=== PATIENT | female | born 1960 | race Caucasian/White ===

== ENCOUNTER 2020-05-05 12:01 | Emergency (ER) | payer OTHER, SELFPAY ==
[2020-05-05 12:05] VITALS: BP 231/121; PULSE 95; RESP 18; TEMP 36.6; O2SAT 97; BMI 31.3
[2020-05-05] MEDS: Lidocaine HCl 1 % MPF 5 ML VIAL 10 ML SUBCUT (12:30)
--- NOTE | 2020-05-05 13:04 | ED_ITS ---
HPI - Skin/Abscess/Foreign Bdy General Chief complaint: Skin/Abscess/Foreign Body Stated complaint: fb in finger Time Seen by Provider: 05/05/20 12:16 Source: patient Mode of arrival: ambulatory Limitations: no limitations History of Present Illness HPI narrative: Wooden splinter on the left nail of the thumb for 2 days occurred at home. MD complaint: foreign body Onset (ago): day(s) Tetanus up to date: yes Location: L hand (Left thumb) Context: none Treatments prior to arrival: none Related Data Home Medications Medication Instructions Recorded Confirmed potassium chloride 10 mEq 10 meq PO DAILY 03/08/20 tablet,extended release(part/cryst) Previous Rx's Medication Instructions Recorded dulaglutide 0.75 mg/0.5 mL 0.75 mg SUBCUT QWEEK #2 ml 02/09/20 subcutaneous pen injector glimepiride 4 mg tablet 4 mg PO QAM #30 tab 03/22/20 acetaminophen 300 mg-codeine 30 mg 1 tab PO BID PRN 30 Days #30 tab 03/26/20 tablet losartan 100 mg tablet 100 mg PO DAILY #30 tab 04/12/20 potassium chloride 10 mEq 10 meq PO QID #120 tab 04/12/20 tablet,extended release(part/cryst) gabapentin 400 mg capsule 400 mg PO TID #90 cap 05/04/20 cephalexin [Keflex] 500 mg PO BID 7 Days #14 cap 05/05/20 doxycycline monohydrate 100 mg PO BID 7 Days #14 cap 05/05/20 Allergies Allergy/AdvReac Type Severity Reaction Status Date / Time ibuprofen [From Motrin] Allergy Mild STOMACH Verified 02/26/20 06:22 UPSET oxycodone [From Percocet] Allergy Mild ITCHING Verified 02/26/20 06:22 lactose [LACTOSE] Allergy Unknown ABD PAIN Unverified 01/01/20 15:49 metformin AdvReac Unknown nausea, Verified 02/26/20 06:22 somnolence Review of Systems Review of Systems: Constitutional: No Weight loss, No Fever, No Chills, No Night Sweats, No Fatigue, No Malaise ENT/Mouth: No Hearing loss, No Ear Pain, No Nasal Congestion, No Sinus Pain, No Hoarseness, No sore throat, No Rhinorrhea Eyes: Cardiovascular: No Chest Pain, No SOB Respiratory: No Cough, No Sputum, No Wheezing, No Smoke Exposure, No Dyspnea Gastrointestinal: Negative Genitourinary: Negative Musculoskeletal: No joint pain, No Myalgias, No Joint Swelling Skin: No Skin Lesions, No rash, as noted in HPI Neuro: No Headache Psych: No Social Issues Heme/Lymph: Negative Endocrine: Negative Yes all other systems are reviewed and are negative [facility] Past Medical History Medical History (Updated 05/05/20 @ 13:06 by Erwin Parsons NP) Depression Diabetes Fibromyalgia HTN (hypertension) Sciatic pain Surgical History (Updated 02/26/20 @ 06:24 by DEBI Turner) H/O bilateral breast reduction surgery History of appendectomy History of carpal tunnel release History of section History of hysterectomy History of laparoscopic cholecystectomy History of left salpingo-oophorectomy History of right oophorectomy Family History Family History (Updated 02/26/20 @ 06:25 by DEBI Turner) Father Suicide Epilepsy Mother Poor high blood pressure control Diabetes Hypertension Daughter Spina bifida Social History Social History Smoked in Last 30 Days: No Use of substances other than those prescribed or required for medical reasons: No Advance Directives: No Advance Directives Information Provided: No Physical Exam Vital Signs: Vital Signs: Last Vital Signs Temp 98 F 05/05/20 12:05 Pulse 95 05/05/20 12:05 Resp 18 05/05/20 12:05 BP 231/121 H 05/05/20 12:05 Pulse Ox 97 05/05/20 12:05 Body Mass Index 31.3 Reviewed Const: General: cooperative and healthy appearing HENMT: Head: Yes normal to inspection Ears: hearing grossly normal bilaterally Eyes: General: appearance normal, both eyes and all related structures Visual Galvan: normal visual galvan by confrontation Resp: Effort & Inspection: normal respiratory effort Auscultation: clear to auscultation bilaterally Cardio: Jugular venous distension: no JVD Rhythm: regular rhythm Heart sounds: S1 normal heart sound present and S2 normal heart sound present Skin: General skin exam: no rashes or lesions noted Extrem: General: Yes normal to inspection Hand/finger images: 1. Visible darkened area under the fingernail consistent with foreign body. Procedures Foreign Body Removal Site: left and hand (Left thumb) Description of foreign body: other (Wood) Sedation/Analgesia: other (Digital block with 5 mL of 1% lidocaine) Technique: removal with forceps Confirmed by:: direct visualization Complications: none Post-procedure exam: awake, alert Neurovascular: normal distal pulse, no signs of compartment syndrome, no change from pre-procedure (Neurovascular intact. Cap refill within normal limits. Full range of motion.) and other (Single 2 cm long wooden splinter removed with ease. No additional foreign body visible. Slight purulent discharge with manual expression after splinter removal. Neurovascular intact. Cap refill within normal limits. Full range of motion. Neurovascular intact. Cap refill within normal limits.) Discharge Plan Discharge Clinical Impression: Splinter Patient Disposition: Home, Self-Care Instructions: Soft Tissue Foreign Body (ED) Additional Instructions: You had a wooden splinter removed from the left thumb under the nail This site appears minimally infected there was slight amount of purulent discharge The splinter was removed fully intact Given your history of diabetes you will need to monitor the site closely for infection including redness, swelling, discharge or fever Return to emergency room right away for any concerns or worsening symptoms He will be started on antibiotics to prevent further infection Have check in 1 week through her primary care doctor Thank you Prescriptions: New cephalexin [Keflex] 500 mg capsule 500 mg PO BID 7 Days Qty: 14 RF: 0 doxycycline monohydrate 100 mg capsule 100 mg PO BID 7 Days Qty: 14 RF: 0 No Action dulaglutide [Trulicity] 0.75 mg/0.5 mL pen injector 0.75 mg subcut QWEEK Qty: 2 RF: 8 potassium chloride 10 mEq tablet,ER particles/crystals 10 meq PO DAILY RF: 0 glimepiride 4 mg tablet 4 mg PO QAM Qty: 30 RF: 2 acetaminophen-codeine 300-30 mg tablet 1 tab PO BID PRN (Reason: pain) 30 Days Qty: 30 RF: 0 losartan 100 mg tablet 100 mg PO DAILY Qty: 30 RF: 2 potassium chloride 10 mEq tablet,ER particles/crystals 10 meq PO QID Qty: 120 RF: 2 gabapentin 400 mg capsule 400 mg PO TID Qty: 90 RF: 0 Referrals: Michael Peoples MD [Primary Care Provider] - 1 week
[2020-05-05 13:20] VITALS: BP 192/98; PULSE 86
== END 2020-05-05 13:22 | disposition home or self-care (01) ==
PROVIDERS: Emergency Provider Emergency Medicine; PCP Internal Medicine
DX: L92.3 Foreign body granuloma of the skin and subcutaneous tissue (principal); M79.642 Pain in left hand; W45.8XXA Other foreign body or object entering through skin, initial encounter; Y93.9 Activity, unspecified; Y92.009 Unspecified place in unspecified non-institutional (private) residence as the place of occurrence of the external cause; Y99.9 Unspecified external cause status; Z79.899 Other long term (current) drug therapy
CPT/HCPCS: 10120; 99284

== ENCOUNTER 2020-07-09 15:00 | Emergency (ER) | payer OTHER, SELFPAY ==
--- NOTE | ~2020-07-09 | XR_ITS ---
EXAMINATION: XR CHEST CLINICAL INFORMATION: Back pain. Abdominal pain. COMPARISON: Chest x-ray 05/26/2019. TECHNIQUE: Frontal portable view of the chest was obtained. 5:13 PM FINDINGS: No significant abnormality is noted involving the heart, lungs, mediastinum, bony thorax or soft tissues. XR/XR chest 1V IMPRESSION: Unremarkable examination.
--- NOTE | ~2020-07-09 | CT_ITS ---
EXAMINATION: CT ABDOMEN AND PELVIS WITHOUT CONTRAST CLINICAL INFORMATION: Back pain and abdominal pain. COMPARISON: CT of the abdomen and pelvis dated 06/16/2019. TECHNIQUE: Multidetector volumetric imaging was performed from the superior aspect of the liver through the pubic symphysis. Sagittal and coronal reformatted images were obtained on the technologist's workstation. This CT examination was performed using dose optimization techniques as appropriate, variously including the following: *Automated exposure control *Adjustment of mA and/or kV according to patient size (this includes techniques or standardized protocols for targeted exams where dose is matched to indication/reason for exam; i.e. extremities or head) *Use of iterative reconstruction technique DLP: 531 mGy-cm FINDINGS: LUNG BASES: The visualized lung bases are unremarkable. LIVER, GALLBLADDER, AND BILIARY TREE: The liver is normal in size, shape, and attenuation. No focal hepatic lesion or biliary ductal dilatation is present. The gallbladder is unremarkable with no evidence of radiopaque gallstones, gallbladder wall thickening, or obvious pericholecystic inflammatory changes. PANCREAS: Normal. No peripancreatic inflammatory changes. SPLEEN: Normal. ADRENAL GLANDS: Normal. KIDNEYS AND URETERS: The kidneys are normal in size, shape, and attenuation. No hydronephrosis, hydroureter, or calculi seen. No perinephric stranding. Ureters are normal throughout their course. No ureteral calculi. BLADDER: Mildly distended. No bladder calculi. GASTROINTESTINAL TRACT: The small and large bowel are unremarkable. Appendix is not visualized. No right lower quadrant inflammatory changes. No intraperitoneal free air or free fluid. ABDOMINAL WALL: No significant hernia is appreciated. LYMPH NODES: No pathologically enlarged lymph nodes. VASCULAR: Normal. PELVIC VISCERA: Uterus is not visualized. No adnexal mass. OSSEOUS STRUCTURES: Vertebral body heights are preserved. No listhesis. There is mild multilevel endplate degenerative changes of the lumbar spine and Schmorl's node formation at the inferior endplate of L3. Mild bilateral facet arthrosis at L5-S1. CT/CT abdomen pelvis wo con IMPRESSION: No CT explanation for abdominal pain and back pain. Cholecystectomy. No renal, ureteral, or urinary bladder calculi. Mild lumbar spine degenerative changes. Hysterectomy. Appendectomy.
[2020-07-09 15:17] VITALS: BP 209/109; PULSE 113; RESP 24; TEMP 36.9; O2SAT 100; BMI 30.2
[2020-07-09 16:51] VITALS: BP 200/108; PULSE 101; RESP 16; TEMP 36.4; O2SAT 97
--- NOTE | 2020-07-09 17:53 | ED_ITS ---
HPI - Abdominal Pain General Chief Complaint: Back Pain/Injury Stated Complaint: Back Pain Time Seen by Provider: 07/09/20 16:55 Source: patient Mode of arrival: ambulatory Limitations: no limitations History of Present Illness HPI narrative: 59-year-old female with past medical history diabetes, depression, fibromyalgia, hypertension, sciatica presents with 1 week of abdominal pain to the right upper quadrant radiating down to the right groin and across to the pelvis. States that this pain also goes down her right leg. She is having a difficult time getting into a comfortable position, states that she does have a history of sciatica. She has had multiple abdominal surgeries including appendectomy, hysterectomy, bilateral salpingo oophorectomies. She has been drinking Pepto-Bismol on a regular basis and reports black stools. She does not report any fevers, chills, chest pain chest pressure, palpitations, shortness breath, abdominal distention, dysuria, hematuria, weakness, dizziness, and edema. Related Data Home Medications Medication Instructions Recorded Confirmed potassium chloride 10 mEq 10 meq PO DAILY 03/08/20 tablet,extended release(part/cryst) Previous Rx's Medication Instructions Recorded dulaglutide 0.75 mg/0.5 mL 0.75 mg SUBCUT QWEEK #2 ml 02/09/20 subcutaneous pen injector glimepiride 4 mg tablet 4 mg PO QAM #30 tab 03/22/20 acetaminophen 300 mg-codeine 30 mg 1 tab PO BID PRN 30 Days #30 tab 03/26/20 tablet losartan 100 mg tablet 100 mg PO DAILY #30 tab 04/12/20 potassium chloride 10 mEq 10 meq PO QID #120 tab 04/12/20 tablet,extended release(part/cryst) gabapentin 400 mg capsule 400 mg PO TID #90 cap 05/04/20 cephalexin [Keflex] 500 mg PO BID 7 Days #14 cap 05/05/20 doxycycline monohydrate 100 mg PO BID 7 Days #14 cap 05/05/20 Allergies Allergy/AdvReac Type Severity Reaction Status Date / Time ibuprofen [From Motrin] Allergy Mild STOMACH Verified 02/26/20 06:22 UPSET oxycodone [From Percocet] Allergy Mild ITCHING Verified 02/26/20 06:22 lactose [LACTOSE] Allergy Unknown ABD PAIN Unverified 01/01/20 15:49 metformin AdvReac Unknown nausea, Verified 02/26/20 06:22 somnolence Review of Systems Review of Systems Constitutional: No Fever, No Chills ENT/Mouth: No sore throat Eyes: No Eye Pain, No Swelling, No Redness Cardiovascular: No Chest Pain, No SOB Respiratory: No Cough, No Sputum, No Wheezing Gastrointestinal: No Nausea, no Vomiting, No Diarrhea, positive abdominal pain Genitourinary: No Dysuria, no urinary frequency, no Hematuria, positive Flank Pain, no hesitancy Musculoskeletal: No joint pain, No Myalgias Skin: No Skin Lesions, No rash Neuro: No Weakness, No Numbness, No Headache Psych: No Anxiety/Panic, No Depression Heme/Lymph: No Bruising, No Lymphadenopathy Endocrine: No Polyuria, No Polydipsia Yes all other systems are reviewed and are negative Physical Exam Vital Signs: Vital Signs: Last Vital Signs Temp 97.5 F 07/09/20 16:51 Pulse 94 07/09/20 19:38 Resp 16 07/09/20 19:32 BP 215/106 H 07/09/20 19:38 Pulse Ox 98 07/09/20 19:34 Body Mass Index 30.2 Appearance: Alert. Oriented X3. No acute distress. Eyes: Pupils equal, round and reactive to light. ENT: Pharynx normal. Neck: Normal inspection. Neck supple. CVS: Tachycardic heart rate and rhythm. Pulses normal. Respiratory: No respiratory distress. Breath sounds normal. Abdomen: Soft and right upper quadrant and lower quadrant tenderness to minimal palpation, right-sided CVA tenderness, Skin: Skin warm and dry. Normal skin color. Normal skin turgor. Extremities: No lower extremity edema. Moves all extremities against resistance Neuro: No motor deficit. No sensory deficit. Cranial nerves 2-12 intact, no focal neural deficits. Course Course Course Narrative: 59-year-old female with past medical history diabetes, depression, fibromyalgia, hypertension, sciatica presents with 1 week of abdominal pain to the right upper quadrant radiating down to the right groin and across to the pelvis. Plan of care is for CBC, Chem 7, urinalysis and CT scan of the abdomen pelvis. White count 11.2 which is an improvement from her lab values on 06/15/2020 of 13, chemistries are negative, glucose is 210 is consistent with her history of diabetes, urine is negative for acute findings. COVID test is negative. CT scan of abdomen and pelvis is negative for acute findings, chest x-ray is ne gative. Pain could be because of fibromyalgia, abdominal adhesions secondary to multiple abdominal surgeries, possibly a passed kidney stone as she has had this pain for few weeks. Discussion regarding findings and possibilities of her pain, patient is satisfied with her care, agrees with plan of care to be discharged home. MDM - Abdominal Pain Differential Diagnosis Differential diagnosis: Likely abdominal pain, acute appendicitis, calculus of kidney, constipation and diverticulitis Medical Records Attestation: I reviewed the patient's medical records. Lab Data Attestation: I reviewed the patient's lab results. Result diagrams: 07/09/20 18:06 07/09/20 18:08 Labs: Lab Results 07/09/20 07/09/20 07/09/20 Range/Units 18:06 18:06 18:06 WBC 11.2 H (4.8-10.8) X10*3/uL RBC 4.71 (4.20-5.50) X10*6/uL Hgb 13.7 (12.0-16.0) g/dl Hct 41.1 (37-47) % MCV 87.3 (80-98) fL MCH 29.1 (27.0-33.0) pg MCHC 33.3 (31.0-35.0) g/dl RDW 11.9 (11.0-16.0) % Plt Count 465 H (160-400) X10*3/uL MPV 9.2 L (9.4-12.3) fL Immature Gran % (Auto) 0.4 (0.0-0.4) % Neut % (Auto) 70.9 (45-73) % Lymph % (Auto) 22.9 (20-40) % School[place] % (Auto) 4.7 (2-11) % Eos % (Auto) 0.8 (0-4) % Baso % (Auto) 0.3 (0-2) % Lymph # (Auto) 2.6 (1.2-4.9) X10*3/uL [place] # (Auto) 0.5 (0.1-1.2) X10*3/uL Eos # (Auto) 0.1 (0.0-0.4) X10*3/uL Baso # (Auto) 0.0 (0.0-0.2) X10*3/uL Abs Immat Gran (auto) 0.05 H (0.00-0.03) X10*3/uL Absolute Neuts (auto) 7.9 (2.0-8.3) X10*3/uL Absolute Nucleated RBC 0.000 (0.0-0.012) X10*3/uL Nucleated RBC % (auto) 0.0 (0.0-0.2) /100WBC PT (10.8-13.0) SEC INR (0.9-1.1) APTT (24.1-38.0) SEC Sodium (135-145) mmol/L Potassium (3.3-5.1) mmol/L Chloride (96-108) mmol/L Carbon Dioxide (22-29) mmol/L Anion Gap (12-20) BUN (9-16) mg/dL Creatinine (0.5-1.4) mg/dL Estim Creat Clear Calc Estimated GFR Random Glucose (60-115) mg/dL Calcium (8.4-10.2) mg/dL Total Bilirubin (0.0-1.0) mg/dL Direct Bilirubin (0.0-0.5) mg/dL AST (5-31) U/L ALT (0-31) U/L Alkaline Phosphatase (39-117) U/L Troponin I High Sens < 3.5 (<3.5-17.0) ng/L Total Protein (6.5-8.0) g/dL Albumin (3.5-5.0) g/dL Lipase (8-78) U/L Urine Color Urine Appearance Urine pH (5.0-8.0) Ur Specific Jenison (1.005-1.025) Urine Protein (NEG-TRACE) MG/DL Urine Glucose (UA) (NEG) MG/DL Urine Ketones (NEG) MG/DL Urine Blood (NEG) Urine Nitrite (NEG) Ur Leukocyte Esterase (NEG) Urine RBC (0) /HPF Urine WBC (0-4) /HPF Ur Squamous Epith Cells /LPF Ur Renal Epithelial Cell /LPF Urine Bacteria /LPF Hyaline Casts /LPF Urine Mucus /LPF Coronavirus (PCR) NEGATIVE (Negative) Influenza Type A (PCR) NEGATIVE (Negative) Influenza Type B (PCR) NEGATIVE (Negative) RSV RNA Qual (PCR) NEGATIVE (Negative) 07/09/20 07/09/20 07/09/20 Range/Units 18:06 18:07 18:08 WBC (4.8-10.8) X10*3/uL RBC (4.20-5.50) X10*6/uL Hgb (12.0-16.0) g/dl Hct (37-47) % MCV (80-98) fL MCH (27.0-33.0) pg MCHC (31.0-35.0) g/dl RDW (11.0-16.0) % Plt Count (160-400) X10*3/uL MPV (9.4-12.3) fL Immature Gran % (Auto) (0.0-0.4) % Neut % (Auto) (45-73) % Lymph % (Auto) (20-40) % [place] % (Auto) (2-11) % Eos % (Auto) (0-4) % Baso % (Auto) (0-2) % Lymph # (Auto) (1.2-4.9) X10*3/uL [place] # (Auto) (0.1-1.2) X10*3/uL Eos # (Auto) (0.0-0.4) X10*3/uL Baso # (Auto) (0.0-0.2) X10*3/uL Abs Immat Gran (auto) (0.00-0.03) X10*3/uL Absolute Neuts (auto) (2.0-8.3) X10*3/uL Absolute Nucleated RBC (0.0-0.012) X10*3/uL Nucleated RBC % (auto) (0.0-0.2) /100WBC PT 12.7 (10.8-13.0) SEC INR 1.1 (0.9-1.1) APTT 38.3 H (24.1-38.0) SEC Sodium 138 (135-145) mmol/L Potassium 4.1 (3.3-5.1) mmol/L Chloride 100 (96-108) mmol/L Carbon Dioxide 25 (22-29) mmol/L Anion Gap 17 (12-20) BUN 13 (9-16) mg/dL Creatinine 1.01 (0.5-1.4) mg/dL Estim Creat Clear Calc 50.9 Estimated GFR 56 Random Glucose 210 H (60-115) mg/dL Calcium 9.4 (8.4-10.2) mg/dL Total Bilirubin 0.4 (0.0-1.0) mg/dL Direct Bilirubin 0.2 (0.0-0.5) mg/dL AST 25 (5-31) U/L ALT 35 H (0-31) U/L Alkaline Phosphatase 112 (39-117) U/L Troponin I High Sens (<3.5-17.0) ng/L Total Protein 8.2 H (6.5-8.0) g/dL Albumin 4.4 (3.5-5.0) g/dL Lipase 46 (8-78) U/L Urine Color YELLOW Urine Appearance CLEAR Urine pH 6.5 (5.0-8.0) Ur Specific Jenison 1.015 (1.005-1.025) Urine Protein 1+ H (NEG-TRACE) MG/DL Urine Glucose (UA) >=1000 H (NEG) MG/DL Urine Ketones NEG (NEG) MG/DL Urine Blood NEG (NEG) Urine Nitrite NEG (NEG) Ur Leukocyte Esterase NEG (NEG) Urine RBC 0-2 (0) /HPF Urine WBC 1-4 (0-4) /HPF Ur Squamous Epith Cells 3+ /LPF Ur Renal Epithelial Cell 1+ /LPF Urine Bacteria NONE /LPF Hyaline Casts 0-2 /LPF Urine Mucus TRACE /LPF Coronavirus (PCR) (Negative) Influenza Type A (PCR) (Negative) Influenza Type B (PCR) (Negative) RSV RNA Qual (PCR) (Negative) Imaging Data Chest x-ray: Attestation: I personally reviewed and interpreted this imaging study as follows: Radiologist's impression: EXAMINATION: XR CHEST CLINICAL INFORMATION: Back pain. Abdominal pain. COMPARISON: Chest x-ray 05/26/2019. TECHNIQUE: Frontal portable view of the chest was obtained. 5:13 PM FINDINGS: No significant abnormality is noted involving the heart, lungs, mediastinum, bony thorax or soft tissues. XR/XR chest 1V IMPRESSION: Unremarkable examination. CT scan - abdomen: Attestation: I personally reviewed and interpreted this imaging study as follows: Radiologist's impression: EXAMINATION: CT ABDOMEN AND PELVIS WITHOUT CONTRAST CLINICAL INFORMATION: Back pain and abdominal pain. COMPARISON: CT of the abdomen and pelvis dated 06/16/2019. TECHNIQUE: Multidetector volumetric imaging was performed from the superior aspect of the liver through the pubic symphysis. Sagittal and coronal reformatted images were obtained on the technologist's workstation. This CT examination was performed using dose optimization techniques as appropriate, variously including the following: *Automated exposure control *Adjustment of mA and/or kV according to patient size (this includes techniques or standardized protocols for targeted exams where dose is matched to indication/reason for exam; i.e. extremities or head) *Use of iterative reconstruction technique DLP: 531 mGy-cm FINDINGS: LUNG BASES: The visualized lung bases are unremarkable. LIVER, GALLBLADDER, AND BILIARY TREE: The liver is normal in size, shape, and attenuation. No focal hepatic lesion or biliary ductal dilatation is present. The gallbladder is unremarkable with no evidence of radiopaque gallstones, gallbladder wall thickening, or obvious pericholecystic inflammatory changes. PANCREAS: Normal. No peripancreatic inflammatory changes. SPLEEN: Normal. ADRENAL GLANDS: Normal. KIDNEYS AND URETERS: The kidneys are normal in size, shape, and attenuation. No hydronephrosis, hydroureter, or calculi seen. No perinephric stranding. Ureters are normal throughout their course. No ureteral calculi. BLADDER: Mildly distended. No bladder calculi. GASTROINTESTINAL TRACT: The small and large bowel are unremarkable. Appendix is not visualized. No right lower quadrant inflammatory changes. No intraperitoneal free air or free fluid. ABDOMINAL WALL: No significant hernia is appreciated. LYMPH NODES: No pathologically enlarged lymph nodes. VASCULAR: Normal. PELVIC VISCERA: Uterus is not visualized. No adnexal mass. OSSEOUS STRUCTURES: Vertebral body heights are preserved. No listhesis. There is mild multilevel endplate degenerative changes of the lumbar spine and Schmorl's node formation at the inferior endplate of L3. Mild bilateral facet arthrosis at L5-S1. CT/CT abdomen pelvis wo con IMPRESSION: No CT explanation for abdominal pain and back pain. Cholecystectomy. No renal, ureteral, or urinary bladder calculi. Mild lumbar spine degenerative changes. Hysterectomy. Appendectomy. Discharge Plan Discharge Clinical Impression: Renal colic, Right flank pain, Kidney stones Patient Disposition: Home, Self-Care Instructions: Kidney Stones (ED), Flank Pain (ED) Additional Instructions: You were evaluated for right flank pain. The CT scan abdomen and pelvis was normal, it is suspected that you had passed a kidney stone based on the description of your symptoms. Please take your blood pressure medications as directed by your primary care provider. Thank you for choosing this emergency department for evaluation. Please follow-up with primary care physician as needed. Return to the emergency department for any new, concerning, or worsening symptoms. Prescriptions: No Action dulaglutide [Trulicity] 0.75 mg/0.5 mL pen injector 0.75 mg subcut QWEEK Qty: 2 RF: 8 potassium chloride 10 mEq tablet,ER particles/crystals 10 meq PO DAILY RF: 0 glimepiride 4 mg tablet 4 mg PO QAM Qty: 30 RF: 2 acetaminophen-codeine 300-30 mg tablet 1 tab PO BID PRN (Reason: pain) 30 Days Qty: 30 RF: 0 losartan 100 mg tablet 100 mg PO DAILY Qty: 30 RF: 2 potassium chloride 10 mEq tablet,ER particles/crystals 10 meq PO QID Qty: 120 RF: 2 gabapentin 400 mg capsule 400 mg PO TID Qty: 90 RF: 0 cephalexin [Keflex] 500 mg capsule 500 mg PO BID 7 Days Qty: 14 RF: 0 doxycycline monohydrate 100 mg capsule 100 mg PO BID 7 Days Qty: 14 RF: 0 PMFSH Past Medical History Attestation statement: The following information was validated with the patient. Source: old records reviewed Medical History Depression Diabetes Fibromyalgia HTN (hypertension) Sciatic pain Surgical History H/O bilateral breast reduction surgery History of appendectomy History of carpal tunnel release History of section History of hysterectomy History of laparoscopic cholecystectomy History of left salpingo-oophorectomy History of right oophorectomy Family History Family History Father Suicide Epilepsy Mother Poor high blood pressure control Diabetes Hypertension Daughter Spina bifida Social History Social History Advance Directives: No Advance Directives Information Provided: No
[2020-07-09 18:19] LABS: MANUAL DIFF FLAG NO
[2020-07-09 18:27] LABS: Basophils Percent Auto 0.3 % (0-2); Eosinophils Absolute Auto 0.1 X10*3/uL (0.0-0.4); Eosinophils Percent Auto 0.8 % (0-4); Glucose Urine UA >=1000 MG/DL (NEG); Hematocrit 41.1 % (37-47); Hemoglobin 13.7 g/dl (12.0-16.0); Imm Gran Abs Auto 0.05 X10*3/uL (0.00-0.03); Imm Gran Pct Auto 0.4 % (0.0-0.4); Leukocyte Esterase Urine NEG (NEG); Lymphocytes Absolute Auto 2.6 X10*3/uL (1.2-4.9); Lymphocytes Percent Auto 22.9 % (20-40); Mean Corpuscular HGB Conc 33.3 g/dl (31.0-35.0); Mean Corpuscular Hemoglobin 29.1 pg (27.0-33.0); Mean Corpuscular Volume 87.3 fL (80-98); Mean Platelet Volume 9.2 fL (9.4-12.3); Monocytes Absolute Auto 0.5 X10*3/uL (0.1-1.2); Monocytes Percent Auto 4.7 % (2-11); Neutrophils Absolute Auto 7.9 X10*3/uL (2.0-8.3); Neutrophils Percent Auto 70.9 % (45-73); Nitrite Urine NEG (NEG); PH 6.5 (5.0-8.0); Platelet Count 465 X10*3/uL (160-400); Red Blood Count 4.71 X10*6/uL (4.20-5.50); Red Cell Distribution Width 11.9 % (11.0-16.0); Specific Gravity - Urine 1.015 (1.005-1.025); Urine Blood NEG (NEG); Urine Ketones NEG (NEG); Urine Protein 1+ MG/DL (NEG-TRACE); White Blood Count 11.2 X10*3/uL (4.8-10.8)
[2020-07-09 18:29] LABS: Appearance Urine CLEAR; Color Urine YELLOW
[2020-07-09 18:29] LABS: INTERNATIONAL NORM RATIO 1.1 (0.9-1.1); Prothrombin Time 12.7 SEC (10.8-13.0)
[2020-07-09 18:47] LABS: Alanine Aminotransferase 35 U/L (0-31); Albumin Level 4.4 g/dL (3.5-5.0); Alkaline Phosphatase 112 U/L (39-117); Anion Gap 17 (12-20); Aspartate Amino Transferase 25 U/L (5-31); Bilirubin Direct 0.2 mg/dL (0.0-0.5); Bilirubin Total 0.4 mg/dL (0.0-1.0); Blood Urea Nitrogen 13 mg/dL (9-16); Calcium 9.4 mg/dL (8.4-10.2); Carbon Dioxide 25 mmol/L (22-29); Chloride 100 mmol/L (96-108); Creatinine Clr Calc Pharmacy 50.9; Estimated Glomerular Filt Rate 56; Glucose Random 210 mg/dL (60-115); Lipase 46 U/L (8-78); Potassium 4.1 mmol/L (3.3-5.1); Sodium 138 mmol/L (135-145); Total Protein 8.2 g/dL (6.5-8.0)
[2020-07-09 18:51] LABS: Troponin-I High Sensitivity < 3.5 ng/L (<3.5-17.0)
[2020-07-09 19:00] LABS: RBC Urine 0-2 /HPF (0); Squamous Epithelial Cell Urine 3+ /LPF
[2020-07-09 19:01] LABS: Hyaline Casts Urine 0-2 /LPF; Mucus Urine TRACE /LPF; Renal Epithelial Cells Urine 1+ /LPF
[2020-07-09 19:03] LABS: Partial Thromboplastin Time 38.3 SEC (24.1-38.0)
[2020-07-09 19:04] LABS: Influenza A PCR NEGATIVE (Negative); Influenza B PCR NEGATIVE (Negative); Resp Syncy Virus RNA Qual PCR NEGATIVE (Negative); SARS COV2 PCR INHOUSE NEGATIVE (Negative)
[2020-07-09] MEDS: diphenhydrAMINE HCL 50 MG/ML VIAL 12.5 MG IVPUSH (19:23)
[2020-07-09] MEDS: Morphine Sulfate 4 MG/ML CARTRIDGE IVPUSH (19:24)
[2020-07-09] MEDS: Ketorolac Tromethamine 15 MG/ML VIAL IVPUSH (19:24)
[2020-07-09] MEDS: 0.9 % Sodium Chloride 1,000 ML 999 ML IVCONT ×2 (19:24)
[2020-07-09 19:32] VITALS: BP 229/121; PULSE 98; RESP 16
--- NOTE | 2020-07-09 19:32 | PC.NURSE ---
Pt medicated per MAR. VSS at this time, BP noted to be elevated. MILIEU THERAPIST aware. Continue to monitor.
[2020-07-09 19:33] VITALS: BP 227/119
[2020-07-09 19:34] VITALS: BP 215/106; O2SAT 98
[2020-07-09 19:38] VITALS: BP 215/106; PULSE 94
[2020-07-09] MEDS: Losartan Potassium 25 MG TABLET PO (19:38)
--- NOTE | 2020-07-09 19:39 | PC.NURSE ---
Medicated per MAR with Losartan. Per pt, she did not take her Losartan today due to pain.
== END 2020-07-09 20:30 | disposition home or self-care (01) ==
PROVIDERS: Nurse Practitioner Family; Emergency Provider Emergency Medicine; PCP Internal Medicine
DX: N20.0 Calculus of kidney (principal); E11.9 Type 2 diabetes mellitus without complications; I10 Essential (primary) hypertension; Z90.710 Acquired absence of both cervix and uterus; Z90.49 Acquired absence of other specified parts of digestive tract
CPT/HCPCS: 0241U; 36415; 71045; 74176; 80048; 80076; 81001; 83690; 84484; 85025; 85610; 85730; 96361; 96374; 96375; 99284; J1200; J1885; J2270

== ENCOUNTER 2020-08-13 15:31 | Outpatient (REF) | payer OTHER, SELFPAY ==
[2020-08-13 15:51] LABS: COVID-19 Test Negative (Negative)
== END 2020-08-13 15:32 | disposition home or self-care (01) ==
LOC: HO.LAB 15:31
PROVIDERS: Visit Provider Internal Medicine
DX: Z20.822 Contact with and (suspected) exposure to COVID-19 (principal)
CPT/HCPCS: 36415; 87635; C9803

== ENCOUNTER 2020-11-21 10:51 | Inpatient (IN) | payer OTHER, SELFPAY ==
[2020-11-21] VITALS (8 sets, daily range): BP systolic 173–227; BP diastolic 84–130; PULSE 88–103; RESP 14–21; TEMP 35.8–37.1; O2SAT 95–99; BMI 31.7; BMI 33.4
--- NOTE | ~2020-11-21 | XR_ITS ---
EXAMINATION: PORTABLE CHEST 1 VIEW CLINICAL INFORMATION: Left-sided body tingling/weakness. stroke protocol. . COMPARISON: 07/09/2020. TECHNIQUE: Portable frontal view of the chest was obtained. FINDINGS: The lungs are well expanded. No focal infiltrate, effusion, edema, or pneumothorax. Cardiac and mediastinal silhouettes are within normal limits for technique. No acute bony abnormality seen. XR/XR chest 1V IMPRESSION: No evidence of acute disease.
--- NOTE | ~2020-11-21 | CT_ITS ---
EXAMINATION: CT angio head neck stroke CLINICAL INFORMATION: Question large vessel occlusion. COMPARISON: CT scan of the head same day. TECHNIQUE: [employer] images were obtained. A CT angiogram of the head and neck was performed in the arterial phase after the intravenous administration of 70 mL Omnipaque 350. Delayed postcontrast images of the head were also obtained. MIP reconstructions were generated in multiple orientations at the acquisition workstation. Multiple three-dimensional surface rendered images and maximum intensity projection images were generated on a dedicated 3-D lab workstation. Arterial stenoses are measured in accordance with NASCET criteria or similar method if applicable. This CT examination was performed using dose optimization techniques as appropriate, including one or more of the following: Automated exposure control, iterative reconstruction, and adjustment of technique factors (mA and/or kVp) according to patient size (this includes techniques or standardized protocols for targeted exams where dose is matched to indication/reason for exam). Total exam dose-length product 1411 mGy-cm FINDINGS: Head: Postcontrast images reveal no abnormal mass or enhancement within the intracranial compartment. No intracranial mass effect or midline shift. Lateral and third ventricles are normal. No hydrocephalus. Avila-white matter differentiation is preserved and there is no evidence of acute territorial infarct. The calvarium and skull base are intact. Mastoid air cells and middle ear cavities are well aerated. No active paranasal sinus disease. CT angiogram neck: The aortic arch apex is normal an origins of the major aortic branches are widely patent. Common carotid arteries are patent. Eccentric lipid-laden atheromatous plaque involves both carotid bifurcations. No stenosis of the extracranial internal carotid arteries. The cervical segments of the vertebral arteries as well as their origins are patent. CT angiogram head: Partially calcified atheromatous plaque causes mild narrowing of the cavernous segments of both internal carotid arteries. There is also relatively high-grade focal narrowing involving the midportion of the basilar artery. This finding is well depicted on coronal MIP image 35 of 73 series 12. There is moderate to high-grade focal narrowing involving the P2 segment of the left posterior cerebral artery. Mild irregular narrowing is visualized within a few M2 segments of both middle cerebral arteries. Otherwise no intracranial large vessel occlusion. Other: Soft tissues of the neck including the thyroid gland are normal. Visualized lung apices are clear. No acute osseous finding. CT/CT angio head neck stroke IMPRESSION: No stenosis of the cervical carotid or vertebral arteries and no intracranial large vessel occlusion. There is however moderate to high-grade focal narrowing involving the midportion of the basilar artery and the P2 segment of the left posterior cerebral artery. Mild irregular narrowing is also visualized within the cavernous internal carotid arteries and a few M2 segments of both middle cerebral arteries. No evidence of acute territorial infarct. No abnormal intracranial mass or enhancement. This critical result was discussed with Kayce DE OLIVEIRA at 12:49 PM on 11/21/2020 and it was ascertained that the content and urgency of the report was understood at the time of direct communication.
--- NOTE | ~2020-11-21 | MR_ITS ---
EXAMINATION: MRI BRAIN WITHOUT CONTRAST CLINICAL INFORMATION: Left-sided paresthesias and weakness. Question stroke. COMPARISON: CT angiogram of the head and neck 11/21/2020. TECHNIQUE: Multiplanar MR imaging of the brain was performed without contrast. FINDINGS: There is a small focus of restricted diffusion representing an acute lacunar infarct within the right thalamus best depicted on axial image 16 of 30 series 4. Otherwise no acute territorial infarct. No pathological magnetic susceptibility artifact. A few scattered nonspecific foci of T2 FLAIR show hyperintensity visualized within the periventricular white matter. Intracranial vascular flow voids are grossly maintained. There is no intracranial mass effect or midline shift. No abnormal extra-axial collection. Lateral and third ventricles are normal. No nodules. Midline structures including the cervicomedullary junction are normal. No acute bone marrow signal changes. There is no mastoid middle ear effusion. No active paranasal sinus disease. Globes and orbits are symmetric. MR/MR head/brain wo con IMPRESSION: There is an acute lacunar infarct involving the right thalamus. This acute finding is superimposed upon a few scattered chronic small vessel ischemic changes within the periventricular white matter.
--- NOTE | ~2020-11-21 | CT_ITS ---
CT head for stroke CLINICAL INFORMATION: Reason for Exam stroke protocol COMPARISON: No prior CT scan available for comparison. TECHNIQUE: Department standard protocol. This CT examination was performed using dose optimization techniques as appropriate, variously including the following: *Automated exposure control *Adjustment of mA and/or kV according to patient size (this includes techniques or standardized protocols for targeted exams where dose is matched to indication/reason for exam; i.e. extremities or head) *Use of iterative reconstruction technique DLP: 606 mGy-cm FINDINGS: CEREBRAL HEMISPHERES: There is no evidence of intra-axial or extra-axial mass, hemorrhage or acute infarct. BRAIN PARENCHYMA: Normal roche-white matter differentiation. SUBDURAL SPACE: No bleed. BASAL GANGLIA AND PINEAL GLAND: Unremarkable VENTRICLES: Symmetric and normal in size. CEREBELLUM AND BRAINSTEM: No space-occupying mass, hemorrhage or acute infarct. CEREBELLOPONTINE ANGLES: No lesion found. ORBITS: No intraorbital mass. VESSELS: Attenuation of the intracranial arteries are symmetric. There are intracranial vascular calcifications. SKULL BASE: Unremarkable INCLUDED SINUSES AT SKULL BASE: Clear SKULL AND SKIN: No fracture or bone lesion found. CT/CT head for stroke IMPRESSION: No CT evidence of intracranial space-occupying mass, bleed or infarct. Normal CT scan does not rule out the possibility of hyperacute infarct in the first 12 hours. If patient symptoms persist may consider correlation with MRI, which is more sensitive for early acute infarct. This critical result was discussed with Kayce zamorano by telephone at 11/21/2020 12:31 PM and it was ascertained that the content and urgency of the report was understood at the time of direct communication.
--- NOTE | 2020-11-21 12:04 | ECG_ITS ---
Test Reason : NEURO SYM Blood Pressure : / mmHG Vent. Rate : 088 BPM Atrial Rate : 088 BPM P-R Int : 138 ms QRS Dur : 082 ms QT Int : 388 ms P-R-T Axes : 052 002 000 degrees QTc Int : 469 ms Normal sinus rhythm Normal ECG When compared with ECG of 26-MAY-2019 11:58, Fusion complexes are no longer Present Nonspecific T wave abnormality no longer evident in Anterior leads Referred By: Kayce Mata Electronically Signed By:Arcadio Duong
--- NOTE | 2020-11-21 12:07 | ED.NEUROSD ---
HPI - Neuro Symptoms/Deficit General Chief Complaint: Neuro Symptoms/Deficit Stated Complaint: left sided numbness Time Seen by Provider: 11/21/20 11:38 Source: patient and EMS Mode of arrival: EMS Limitations: language barrier ([place]ese Speaking) History of Present Illness HPI Narrative: 60-year-old female with a past medical history of hypertension, hyperlipidemia diabetes, anemia, GERD, anxiety, depression, insomnia and lumbar degenerative disc disease presenting to the ED via EMS with complaints of tingling to the left side of her face/left side of her body that she woke up with at approximately 9-930 a.m. prior to arrival. Then she reports when she got up from the bed she felt like her left leg was weak and she had a pressure sensation throughout her entire head. Then she got up to do her ADLs for the morning and when she was brushing her teeth she dropped her toothbrush and toothpaste while she was holding with her left arm and she still felt like her gait with her left leg was ?weak?. She reports that the head pressure has completely resolved. She reports she still has the left-sided facial and body tingling. She did not take any of her medications this morning. She denies any head trauma, any dizziness, change in vision, nausea/vomiting, jaw pain, chest pain, shortness of breath, dyspnea on exertion, palpitations, abdominal pain, back pain, diarrhea or constipation, black or bloody stools, hematuria, dysuria, lower extremity edema or calf tenderness, recent travel or sick contacts or any other symptoms complaints or concerns at this time. She denies being on any blood thinners. Reports that she has brothers and sisters that have had heart attacks and strokes around this age. She denies ever having the symptoms in the past. Onset (ago): hour(s) (Prior to arrival) Time: 09:00 Location: left face, left arm, left leg and ataxia History of same: No Severity: mild Quality: weak, tingling and constant Relieving factors: none Context: other (She woke up with the symptoms) On Anticoagulants: No Associated symptoms: weakness Treatments Prior to Arrival: none Related Data Home Medications Medication Instructions Recorded Confirmed potassium chloride 10 mEq 10 meq PO DAILY 03/08/20 11/12/20 tablet,extended release(part/cryst) blood sugar diagnostic 11/12/20 11/12/20 bupropion HCl 300 mg 24 hr tablet, 300 mg PO BEDTIME 11/12/20 11/12/20 extended release fluoxetine 20 mg capsule 20 mg PO DAILY 11/12/20 11/12/20 lancets (OneTouch UltraSoft 11/12/20 11/12/20 Lancets) lorazepam 0.5 mg tablet 0 mg PO 11/12/20 11/12/20 zolpidem 10 mg tablet 10 mg PO BEDTIME PRN 11/12/20 11/12/20 Previous Rx's Medication Instructions Recorded dulaglutide 0.75 mg/0.5 mL 0.75 mg SUBCUT QWEEK #2 ml 02/09/20 subcutaneous pen injector (Trulicity) gabapentin 400 mg capsule 400 mg PO TID #90 cap 07/16/20 glimepiride 4 mg tablet 4 mg PO QAM #30 tab 10/26/20 losartan 100 mg tablet 100 mg PO DAILY #30 tab 10/26/20 potassium chloride 10 mEq 10 meq PO QID #120 tab 10/26/20 tablet,extended release(part/cryst) Allergies Allergy/AdvReac Type Severity Reaction Status Date / Time ibuprofen [From Motrin] Allergy Mild STOMACH Verified 11/12/20 15:05 UPSET oxycodone [From Percocet] Allergy Mild ITCHING Verified 11/12/20 15:05 lactose [LACTOSE] Allergy Unknown ABD PAIN Verified 11/12/20 15:05 metformin AdvReac Unknown nausea, Verified 11/12/20 15:05 somnolence Review of Systems Review of Systems: Constitutional : No Fever, No Chills, No Night Sweats, No Fatigue, No Malaise ENT/Mouth : No Ear Pain, No Nasal Congestion, No Sinus Pain, No sore throat, No Rhinorrhea Eyes: No Eye Pain, No Swelling, No Redness, No Foreign Body, No Discharge, No Vision Changes Cardiovascular : No Chest Pain, No SOB, No Dyspnea on Exertion, No Orthopnea, No Palpitations Respiratory : No Cough, No Sputum, No Wheezing, No Dyspnea Gastrointestinal : No Nausea, No Vomiting, No Diarrhea, No Constipation, No abdominal Pain, No Hematochezia, No Melena Genitourinary : No Dysuria, No Urinary Frequency, No Urinary Incontinence, No Urgency, No Flank Pain Musculoskeletal : No joint pain, No Myalgias Skin : No lacerations Neuro : Positive weakness to left arm/left leg, Positive tingling to left face/body, No Loss of Consciousness, No Dizziness, No Headache Yes all other systems are reviewed and are negative [facility] Past Medical History Attestation statement: The following information was validated with the patient. Medical History Anemia, iron deficiency Anxiety Benign essential hypertension Depression Diabetes Diabetes mellitus Fibromyalgia GERD without esophagitis HTN (hypertension) Insomnia Lumbar degenerative disc disease Obesity (BMI 30-39.9) Pure hypercholesterolemia Sciatic pain Surgical History H/O bilateral breast reduction surgery History of appendectomy History of carpal tunnel release History of section History of hysterectomy History of laparoscopic cholecystectomy History of left salpingo-oophorectomy History of right oophorectomy Family History Family History Father Suicide Epilepsy Mother Poor high blood pressure control Diabetes Hypertension Daughter Spina bifida Other Mental health problem Social History Social History Housing: Apartment Alcohol intake: never Patient Tobacco Use Status: Never used Tobacco Second Hand Smoke Exposure: Yes Use of substances other than those prescribed or required for medical reasons: No Advance Directives: No Advance Directives Information Provided: Yes service: No Current occupational status: disabled Physical Exam Vital Signs: Vital Signs: Last Vital Signs Temp 98.2 F 11/21/20 12:42 Pulse 92 11/21/20 12:42 Resp 18 11/21/20 11:01 BP 189/84 H 11/21/20 12:42 Pulse Ox 99 11/21/20 12:42 Body Mass Index 33.4 Vital signs have been reviewed as normal and appeared to be correct. Blood pressure hypertensive 189/84. Heart rate normal. Respiration rate normal. Temperature normal. Oxygen saturation normal. Appearance: Alert. Oriented X3. No acute distress. Head: Normal external exam. Normocephalic. Atraumatic. Able to rotate head bilaterally. Eyes: PERRLA. EOMI. No nystagmus noted. Conjunctiva and sclera normal. Eyelids normal. Corneal reflex normal. ENT: EAC normal. TM's Normal. Hearing normal. Pharynx normal. Uvula midline. tongue midline. Moist mucous membranes. No trismus noted. No drooling noted. No muffled voice noted. No nystagmus noted. Neck: Normal inspection. Neck supple. FROM. No adenopathy. Trachea midline. Thyroid Normal. No meningeal signs. No neck mass noted. CVS: Normal heart rate and rhythm. Heart sound normal. No murmurs noted. Pulses normal throughout. Respiratory: No respiratory distress. Painless inspiration. Breath sounds normal. No wheezes/rales/rhonchi noted. Chest nontender. No accessory muscle usage noted or decreased air movement noted. Abdomen: Soft and nontender. Bowel sounds normal in all 4 quadrants. No distention noted. No organomegaly noted. No visible injury noted. Back: Full range of motion noted. Nontender. No signs of trauma. Skin: Skin warm and dry. Normal skin color. Normal skin turgor. No rashes/lesions/lacerations noted. Extremities: No lower extremity edema. No calf tenderness is noted. Extremities exhibit normal range of motion. Extremities nontender. Able to shrug shoulders bilaterally and keep up against resistance. Neuro: Oriented X 3. No motor deficit. No sensory deficit. Reflexes normal. Moving all extremities. No focal motor deficits. Cranial nerves II-XI intact bilaterally. Facial strength normal. Normal cognition. Speech normal. Strength 5/5 throughout. No pronator drift. No tremor noted. No fasciculations noted. No rigidity noted. Muscle tone normal throughout. No asterixis noted. Hdrshk-[id number] test normal. Heel to cheek test normal. Patient was very unsteady on her feet reported dizziness and she almost fell she had to sit back down. Does not sway with eyes open. Rapid alternating movement upper extremity normal. Rapid alternating movement lower extremity normal. Hand drop from overhead Misses face. NIHSS score 2. Course Course Course Narrative: 12:05pm - 60-year-old female presenting to the ED via EMS with complaints of tingling to the left side of her face/left side of her body that she woke up with at approximately 9-930 a.m. prior to arrival with associated left upper arm and leg weakness and trouble walking. - On exam patient is alert oriented x3. Not in any acute distress. Initially patient denied any dizziness although when I attempted to ambulate the patient she almost fell over and reported she was too dizzy to ambulate and this was new she did not notice this before for stat her back down and technically her NIH SS score is 2. The rest of the neuro exam is within normal limits. Lungs clear to auscultation. CV RRR. Abdomen is soft nontender. Plan: Stroke protocol including stroke labs, CT scan of brain without contrast for stroke, CTA of head and neck for stroke, EKG, chest x-ray, UA and re-evaluate. Reevaluation(s) Reevaluation #1: - labs reviewed and glucose level elevated at 296 otherwise all other labs are within normal limits. - CXR WNL no acute processes noted. - CT scan of brain without contrast revealed no CT evidence of intracranial space occupying mass, bleed or infarct. - although CTA of head and neck revealed No stenosis of the cervical carotid or vertebral arteries and no intracranial large vessel occlusion. There is however moderate to high-grade focal narrowing involving the midportion of the basilar artery and the P2 segment of the left posterior cerebral artery. Mild irregular narrowing is also visualized within the cavernous internal carotid arteries and a few M2 segments of both middle cerebral arteries. No evidence of acute territorial infarct. No abnormal intracranial mass or enhancement. - therefore consulted with Dr. Sales the neurologist amd he reported no aggressive intervention at this time and he reported that the patient could be admitted for further evaluation and treatment - Although I attempted to ambulate the patient again and she was too dizziness to ambulate and almost fell and reviewing the patient's CTA of head and neck I will obtain an MRI without contrast to evaluate for possible cerebellar stroke will re-evaluate. ? Time: 12:50 Reevaluation #2: - MRI of brain without contrast returned at this time and revealed There is an acute lacunar infarct involving the right thalamus. This acute finding is superimposed upon a few scattered chronic small vessel ischemic changes within the periventricular white matter. - Will consult with Dr. Sales at this time regarding MRI results Time: 15:03 Reevaluation #3: - I consulted with Dr. Sales and explained to him the MRI results and he reported that the patient is not a tPA candidate that he would just admit at this time. Therefore will admit. Melanie Abdul NP already evaluated the patient and she understands and agrees with the plan. Time: 16:05 [facility] - Neuro Symptoms/Deficit Medical Records Attestation: I reviewed the patient's medical records. Lab Data Attestation: I reviewed the patient's lab results. Result diagrams: 11/21/20 12:25 11/21/20 12:25 Labs: Lab Results 11/21/20 11/21/20 11/21/20 Range/Units 12:25 12:25 12:25 WBC 10.6 (4.8-10.8) X10*3/uL RBC 4.59 (4.20-5.50) X10*6/uL Hgb 12.9 (12.0-16.0) g/dl Hct 38.5 (37-47) % MCV 83.9 (80-98) fL MCH 28.1 (27.0-33.0) pg MCHC 33.5 (31.0-35.0) g/dl RDW 11.9 (11.0-16.0) % Plt Count 366 (160-400) X10*3/uL MPV 9.3 L (9.4-12.3) fL Immature Gran % (Auto) 0.2 (0.0-0.4) % Neut % (Auto) 70.3 (45-73) % Lymph % (Auto) 21.8 (20-40) % Vance % (Auto) 5.5 (2-11) % Eos % (Auto) 1.9 (0-4) % Baso % (Auto) 0.3 (0-2) % Lymph # (Auto) 2.3 (1.2-4.9) X10*3/uL Vance # (Auto) 0.6 (0.1-1.2) X10*3/uL Eos # (Auto) 0.2 (0.0-0.4) X10*3/uL Baso # (Auto) 0.0 (0.0-0.2) X10*3/uL Abs Immat Gran (auto) 0.02 (0.00-0.03) X10*3/uL Absolute Neuts (auto) 7.5 (2.0-8.3) X10*3/uL Absolute Nucleated RBC 0.000 (0.0-0.012) X10*3/uL Nucleated RBC % (auto) 0.0 (0.0-0.2) /100WBC PT 11.6 (9.9-13.0) SEC INR 1.0 (0.9-1.1) APTT 37.4 (24.1-38.0) SEC Sodium 137 (135-145) mmol/L Potassium 3.9 (3.3-5.1) mmol/L Chloride 102 (96-108) mmol/L Carbon Dioxide 24 (22-29) mmol/L Anion Gap 15 (12-20) BUN 9 (9-16) mg/dL Creatinine 0.96 (0.5-1.4) mg/dL Estim Creat Clear Calc 55.7 Estimated GFR 59 POC Glucose (60-115) mg/dL Random Glucose 330 H D (60-115) mg/dL Calcium 9.3 (8.4-10.2) mg/dL Magnesium 1.9 (1.6-2.6) mg/dL Total Bilirubin 0.4 (0.0-1.0) mg/dL AST 22 (5-31) U/L ALT 31 (0-31) U/L Alkaline Phosphatase 115 (39-117) U/L Total Creatine Kinase 32 (26-140) U/L Troponin I High Sens (<3.5-17.0) ng/L Total Protein 7.7 (6.5-8.0) g/dL Albumin 4.0 (3.5-5.0) g/dL TSH 2.06 (0.32-4.0) uIU/mL Coronavirus (PCR) (Negative) Influenza Type A (PCR) (Negative) Influenza Type B (PCR) (Negative) RSV RNA Qual (PCR) (Negative) 11/21/20 11/21/20 11/21/20 Range/Units 12:25 12:25 12:51 WBC (4.8-10.8) X10*3/uL RBC (4.20-5.50) X10*6/uL Hgb (12.0-16.0) g/dl Hct (37-47) % MCV (80-98) fL MCH (27.0-33.0) pg MCHC (31.0-35.0) g/dl RDW (11.0-16.0) % Plt Count (160-400) X10*3/uL MPV (9.4-12.3) fL Immature Gran % (Auto) (0.0-0.4) % Neut % (Auto) (45-73) % Lymph % (Auto) (20-40) % Vance % (Auto) (2-11) % Eos % (Auto) (0-4) % Baso % (Auto) (0-2) % Lymph # (Auto) (1.2-4.9) X10*3/uL Vance # (Auto) (0.1-1.2) X10*3/uL Eos # (Auto) (0.0-0.4) X10*3/uL Baso # (Auto) (0.0-0.2) X10*3/uL Abs Immat Gran (auto) (0.00-0.03) X10*3/uL Absolute Neuts (auto) (2.0-8.3) X10*3/uL Absolute Nucleated RBC (0.0-0.012) X10*3/uL Nucleated RBC % (auto) (0.0-0.2) /100WBC PT (9.9-13.0) SEC INR (0.9-1.1) APTT (24.1-38.0) SEC Sodium (135-145) mmol/L Potassium (3.3-5.1) mmol/L Chloride (96-108) mmol/L Carbon Dioxide (22-29) mmol/L Anion Gap (12-20) BUN (9-16) mg/dL Creatinine (0.5-1.4) mg/dL Estim Creat Clear Calc Estimated GFR POC Glucose 296 H (60-115) mg/dL Random Glucose (60-115) mg/dL Calcium (8.4-10.2) mg/dL Magnesium (1.6-2.6) mg/dL Total Bilirubin (0.0-1.0) mg/dL AST (5-31) U/L ALT (0-31) U/L Alkaline Phosphatase (39-117) U/L Total Creatine Kinase (26-140) U/L Troponin I High Sens < 3.5 (<3.5-17.0) ng/L Total Protein (6.5-8.0) g/dL Albumin (3.5-5.0) g/dL TSH (0.32-4.0) uIU/mL Coronavirus (PCR) NEGATIVE (Negative) Influenza Type A (PCR) NEGATIVE (Negative) Influenza Type B (PCR) NEGATIVE (Negative) RSV RNA Qual (PCR) NEGATIVE (Negative) 11/21/20 Range/Units 15:20 WBC (4.8-10.8) X10*3/uL RBC (4.20-5.50) X10*6/uL Hgb (12.0-16.0) g/dl Hct (37-47) % MCV (80-98) fL MCH (27.0-33.0) pg MCHC (31.0-35.0) g/dl RDW (11.0-16.0) % Plt Count (160-400) X10*3/uL MPV (9.4-12.3) fL Immature Gran % (Auto) (0.0-0.4) % Neut % (Auto) (45-73) % Lymph % (Auto) (20-40) % Vance % (Auto) (2-11) % Eos % (Auto) (0-4) % Baso % (Auto) (0-2) % Lymph # (Auto) (1.2-4.9) X10*3/uL Vance # (Auto) (0.1-1.2) X10*3/uL Eos # (Auto) (0.0-0.4) X10*3/uL Baso # (Auto) (0.0-0.2) X10*3/uL Abs Immat Gran (auto) (0.00-0.03) X10*3/uL Absolute Neuts (auto) (2.0-8.3) X10*3/uL Absolute Nucleated RBC (0.0-0.012) X10*3/uL Nucleated RBC % (auto) (0.0-0.2) /100WBC PT (9.9-13.0) SEC INR (0.9-1.1) APTT (24.1-38.0) SEC Sodium (135-145) mmol/L Potassium (3.3-5.1) mmol/L Chloride (96-108) mmol/L Carbon Dioxide (22-29) mmol/L Anion Gap (12-20) BUN (9-16) mg/dL Creatinine (0.5-1.4) mg/dL Estim Creat Clear Calc Estimated GFR POC Glucose 288 H (60-115) mg/dL Random Glucose (60-115) mg/dL Calcium (8.4-10.2) mg/dL Magnesium (1.6-2.6) mg/dL Total Bilirubin (0.0-1.0) mg/dL AST (5-31) U/L ALT (0-31) U/L Alkaline Phosphatase (39-117) U/L Total Creatine Kinase (26-140) U/L Troponin I High Sens (<3.5-17.0) ng/L Total Protein (6.5-8.0) g/dL Albumin (3.5-5.0) g/dL TSH (0.32-4.0) uIU/mL Coronavirus (PCR) (Negative) Influenza Type A (PCR) (Negative) Influenza Type B (PCR) (Negative) RSV RNA Qual (PCR) (Negative) Imaging Data Chest x-ray: Attestation: I personally reviewed and interpreted this imaging study as follows: Radiologist's impression: FINDINGS: The lungs are well expanded. No focal infiltrate, effusion, edema, or pneumothorax. Cardiac and mediastinal silhouettes are within normal limits for technique. No acute bony abnormality seen. XR/XR chest 1V IMPRESSION: No evidence of acute disease. CT scan of brain without contrast: Attestation: I personally reviewed and interpreted this imaging study as follows: Radiologist's impression: FINDINGS: ? CEREBRAL HEMISPHERES: There is no evidence of intra-axial or extra-axial mass, hemorrhage or acute infarct. BRAIN PARENCHYMA: Normal avila-white matter differentiation. SUBDURAL SPACE: No bleed. BASAL GANGLIA AND PINEAL GLAND: Unremarkable VENTRICLES: Symmetric and normal in size. CEREBELLUM AND BRAINSTEM: No space-occupying mass, hemorrhage or acute infarct. CEREBELLOPONTINE ANGLES: No lesion found. ORBITS: No intraorbital mass. VESSELS: Attenuation of the intracranial arteries are symmetric. There are intracranial vascular calcifications. SKULL BASE: Unremarkable INCLUDED SINUSES AT SKULL BASE: Clear SKULL AND SKIN: No fracture or bone lesion found. CT/CT head for stroke IMPRESSION: No CT evidence of intracranial space-occupying mass, bleed or infarct. ? Normal CT scan does not rule out the possibility of hyperacute infarct in the first 12 hours. If patient symptoms persist may consider correlation with MRI, which is more sensitive for early acute infarct. ? This critical result was discussed with Kayce zamorano by telephone at 11/21/2020 12:31 PM and it was ascertained that the content and urgency of the report was understood at the time of direct communicatio CTA of head and neck with IV contrast: Attestation: I personally reviewed and interpreted this imaging study as follows: Radiologist's impression: FINDINGS: Head: Postcontrast images reveal no abnormal mass or enhancement within the intracranial compartment. No intracranial mass effect or midline shift. Lateral and third ventricles are normal. No hydrocephalus. Avila-white matter differentiation is preserved and there is no evidence of acute territorial infarct. The calvarium and skull base are intact. Mastoid air cells and middle ear cavities are well aerated. No active paranasal sinus disease. CT angiogram neck: The aortic arch apex is normal an origins of the major aortic branches are widely patent. Common carotid arteries are patent. Eccentric lipid-laden atheromatous plaque involves both carotid bifurcations. No stenosis of the extracranial internal carotid arteries. The cervical segments of the vertebral arteries as well as their origins are patent. CT angiogram head: Partially calcified atheromatous plaque causes mild narrowing of the cavernous segments of both internal carotid arteries. There is also relatively high-grade focal narrowing involving the midportion of the basilar artery. This finding is well depicted on coronal MIP image 35 of 73 series 12. There is moderate to high-grade focal narrowing involving the P2 segment of the left posterior cerebral artery. Mild irregular narrowing is visualized within a few M2 segments of both middle cerebral arteries. Otherwise no intracranial large vessel occlusion. Other: Soft tissues of the neck including the thyroid gland are normal. Visualized lung apices are clear. No acute osseous finding. CT/CT angio head? neck stroke IMPRESSION: No stenosis of the cervical carotid or vertebral arteries and no intracranial large vessel occlusion. There is however moderate to high-grade focal narrowing involving the midportion of the basilar artery and the P2 segment of the left posterior cerebral artery. Mild irregular narrowing is also visualized within the cavernous internal carotid arteries and a few M2 segments of both middle cerebral arteries. No evidence of acute territorial infarct. No abnormal intracranial mass or enhancement. ? This critical result was discussed with Kayce ZAMORANO at 12:49 PM on 11/21/2020 and it was ascertained that the content and urgency of the report was understood at the time of direct communication. ? ECG Data Attestation: I personally reviewed and interpreted this ECG as follows: ECG interpretation date: 11/21/20 ECG interpretation time: 12:51 Interpretation: Normal sinus rhythm and a ventricular rate of 88 with a normal NC interval with nonspecific ST depressions although No acute ischemic change noted. Similar when compared to prior EKG 05/26/2019. NIH Stroke Scale Internal: Initial- Upon Arrival Time: 12:05 Level of Consciousness: Alert Level of Consciousness Questions: Answers both questions correctly Level of Consciousness Commands: Performs both tasks correctly Best Gaze: Normal Visual: No visual loss Facial Palsy: Normal Motor Arm (Right): No drift Motor Arm (Left): No drift Motor Leg (Right): No drift Motor Leg (Left): No drift Limb Ataxia: Present in two limbs Sensory: Normal Best Language: No aphasia Dysarthia: Normal Extinction and Inattention: No abnormality Score: 2 Critical Care Time Critical Care Time Critical Care Time: Yes Total Critical Care Time: 60 Attestation: I personally attest to this time spent taking care of the patient Discharge Plan Discharge Clinical Impression: Right thalamic stroke Patient Disposition: Admitted As Inpatient
[2020-11-21 12:29] LABS: Glucose, Whole Blood 296 mg/dL (60-115)
[2020-11-21 12:30] LABS: MANUAL DIFF FLAG NO
[2020-11-21 12:31] LABS: Basophils Percent Auto 0.3 % (0-2); Eosinophils Absolute Auto 0.2 X10*3/uL (0.0-0.4); Eosinophils Percent Auto 1.9 % (0-4); Hematocrit 38.5 % (37-47); Hemoglobin 12.9 g/dl (12.0-16.0); Imm Gran Abs Auto 0.02 X10*3/uL (0.00-0.03); Imm Gran Pct Auto 0.2 % (0.0-0.4); Lymphocytes Absolute Auto 2.3 X10*3/uL (1.2-4.9); Lymphocytes Percent Auto 21.8 % (20-40); Mean Corpuscular HGB Conc 33.5 g/dl (31.0-35.0); Mean Corpuscular Hemoglobin 28.1 pg (27.0-33.0); Mean Corpuscular Volume 83.9 fL (80-98); Mean Platelet Volume 9.3 fL (9.4-12.3); Monocytes Absolute Auto 0.6 X10*3/uL (0.1-1.2); Monocytes Percent Auto 5.5 % (2-11); Neutrophils Absolute Auto 7.5 X10*3/uL (2.0-8.3); Neutrophils Percent Auto 70.3 % (45-73); Platelet Count 366 X10*3/uL (160-400); Red Blood Count 4.59 X10*6/uL (4.20-5.50); Red Cell Distribution Width 11.9 % (11.0-16.0); White Blood Count 10.6 X10*3/uL (4.8-10.8)
[2020-11-21] MEDS: iohexoL 350 MG/ML 100 ML INFUS..BTL 60 ML IV (12:32)
[2020-11-21 12:36] LABS: Prothrombin Time 11.6 SEC (9.9-13.0)
[2020-11-21 12:38] LABS: Partial Thromboplastin Time 37.4 SEC (24.1-38.0)
[2020-11-21 12:39] LABS: Stroke Lab Use COMPLETE
[2020-11-21 12:56] LABS: Alanine Aminotransferase 31 U/L (0-31); Alkaline Phosphatase 115 U/L (39-117); Anion Gap 15 (12-20); Aspartate Amino Transferase 22 U/L (5-31); Bilirubin Total 0.4 mg/dL (0.0-1.0); Blood Urea Nitrogen 9 mg/dL (9-16); Calcium 9.3 mg/dL (8.4-10.2); Carbon Dioxide 24 mmol/L (22-29); Chloride 102 mmol/L (96-108); Creatinine Clr Calc Pharmacy 55.7; Estimated Glomerular Filt Rate 59; Glucose Random 330 mg/dL (60-115); Magnesium 1.9 mg/dL (1.6-2.6); Potassium 3.9 mmol/L (3.3-5.1); Sodium 137 mmol/L (135-145); Total Protein 7.7 g/dL (6.5-8.0)
[2020-11-21 12:58] LABS: Troponin-I High Sensitivity < 3.5 ng/L (<3.5-17.0)
[2020-11-21 13:15] LABS: Thyroid Stimulating Hormone 2.06 uIU/mL (0.32-4.0)
[2020-11-21 13:44] LABS: Influenza A PCR NEGATIVE (Negative); Influenza B PCR NEGATIVE (Negative); Resp Syncy Virus RNA Qual PCR NEGATIVE (Negative); SARS COV2 PCR INHOUSE NEGATIVE (Negative)
[2020-11-21 15:25] LABS: Glucose, Whole Blood 288 mg/dL (60-115)
[2020-11-21] MEDS: Losartan Potassium 50 MG TABLET 100 MG PO (16:20)
--- NOTE | 2020-11-21 16:21 | PC.NURSE ---
PT SPOKE WITH HOSPITALIST. PLAN TO BE ADMITTED. PT IS AWARE OF PLAN. MED REC COMPLETE.
--- NOTE | 2020-11-21 16:59 | PM.IMHP ---
History of Present Illness Date of Service: 11/21/20 <Melanie Abdul NP - Last Filed: 11/21/20 17:14> Chief Complaint: Weakness <Melanie Abdul NP - Last Filed: 11/21/20 17:14> 60-year-old woman presented to the ER with left-sided weakness. She reports that yesterday she felt fine and she woke up this morning feeling dizzy. She reported that the left side of her face and tongue felt numb. She did not know any speech, visual problems or facial droop. She felt like her left arm left hand, fingers and thumbs felt numb and she also felt lightheaded. She reported when she started walking she felt very off balance. She sat up in bed at 1 point and felt a lot of head pressure. She decided to come to the ER for further evaluation because she remembered her brother telling her similar symptoms and he had a stroke late last year. MRI of the brain showed acute lacunar infarct involving the right thalamus. Unfortunately she woke up with the symptoms therefore no tPA was administered. Her blood pressure had been elevated significantly in the ER with systolic blood pressures over 200s, she had not taken her losartan in the morning therefore this was given which helped some. Her A1c was noted to be elevated at the end of October at 10.3, blood sugars in the 300s in the ER during this visit. She reports compliance with all of her medications and reported that her blood pressure is usually not this high. During the interview she stated that her symptoms have mostly resolved and she only felt some mild numbness in her left arm and left hand. She will be admitted for further management treatment of acute stroke. <Melanie Abdul NP - Last Filed: 11/21/20 17:14> Review of Systems Review of Systems: Denies any recent fever chills or decrease in appetite respiratory denies any shortness of breath coverage production cardiovascular denies chest pain gastrointestinal denies any dysphagia abdominal pain nausea vomiting or diarrhea genitourinary denies any dysuria frequency or hematuria musculoskeletal denies neuropsych see HPI all other systems reviewed are negative <Melanie Abdul NP - Last Filed: 11/21/20 17:14> [facility] Medical History: Medical History Anemia, iron deficiency Anxiety Depression Diabetes mellitus Fibromyalgia GERD without esophagitis HTN (hypertension) Insomnia Lumbar degenerative disc disease Obesity (BMI 30-39.9) Pure hypercholesterolemia Sciatic pain <Melanie Abdul NP - Last Filed: 11/21/20 17:14> Family History: Family History Father Suicide Epilepsy Mother Poor high blood pressure control Diabetes Hypertension Daughter Spina bifida Brother Stroke Other Mental health problem <Melanie Abdul NP - Last Filed: 11/21/20 17:14> Pertinent family history: coronary artery disease in multiple family members on her mother side <Melanie Abdul NP - Last Filed: 11/21/20 17:14> Surgical History: Surgical History H/O bilateral breast reduction surgery History of appendectomy History of carpal tunnel release History of section History of hysterectomy History of left salpingo-oophorectomy <Melanie Abdul NP - Last Filed: 11/21/20 17:14> Social History: Social History Household Members: Significant Other Housing: Apartment Do you presently have visiting nurse or other home services: No Alcohol intake: never Patient Tobacco Use Status: Never used Tobacco Second Hand Smoke Exposure: Yes service: No Current occupational status: disabled <Melanie Abdul NP - Last Filed: 11/21/20 17:14> Meds Allergies/Adverse reactions: Allergies Allergy/AdvReac Type Severity Reaction Status Date / Time ibuprofen [From Motrin] Allergy Mild STOMACH Verified 11/28/20 07:41 UPSET oxycodone [From Percocet] Allergy Mild ITCHING Verified 11/28/20 07:41 lactose [LACTOSE] Allergy Unknown ABD PAIN Verified 11/28/20 07:41 metformin AdvReac Unknown nausea, Verified 11/28/20 07:41 somnolence <Melanie Abdul NP - Last Filed: 11/21/20 17:14> Active Medications: Current Medications Generic Name Dose Route Start Last Admin Trade Name Freq PRN Reason Stop Dose Admin Acetaminophen 650 mg 11/21/20 16:49 Acetaminophen 325 Mg Tablet PO Q6H PRN Pain, Mild (Pain Scale 1-3) Bupropion HCl 300 mg 11/22/20 09:00 Bupropion Hcl Xl 300 Mg Tab.Er.24h PO DAILY [facility] Fluoxetine HCl 20 mg 11/22/20 09:00 Fluoxetine Hcl 20 Mg Capsule PO DAILY [facility] Gabapentin 400 mg 11/21/20 21:00 Gabapentin 400 Mg Capsule PO TID CHRIS Heparin Sodium (Porcine) 5,000 unit 11/21/20 17:00 Heparin Sodium,Porcine 5,000 Unit/Ml Vial SUBCUT Q12H CHRIS Non-Formulary Medication 0.75 mg 11/21/20 17:00 Dulaglutide [Trulicity] SUBCUT QWEEK [facility] Ondansetron HCl 4 mg 11/21/20 16:49 Ondansetron Hcl 4 Mg/2 Ml Vial IVPUSH Q8H PRN Nausea and Vomiting Zolpidem Tartrate 10 mg 11/21/20 21:00 Zolpidem Tartrate 5 Mg Tablet PO BEDTIME CHRIS <Melanie Abdul NP - Last Filed: 11/21/20 17:14> Home medications: Home Medications Medication Instructions Recorded Confirmed Last Taken Type potassium chloride 10 mEq 10 meq PO DAILY 03/08/20 11/28/20 Unknown History tablet,extended release(part/cryst) blood sugar diagnostic 11/12/20 11/28/20 Unknown History bupropion HCl 300 mg 24 hr tablet, 300 mg PO DAILY 11/12/20 11/28/20 Unknown History extended release fluoxetine 20 mg capsule 20 mg PO DAILY 11/12/20 11/28/20 Unknown History lancets (OneTouch UltraSoft 11/12/20 11/28/20 Unknown History Lancets) lorazepam 0.5 mg tablet 0.5 mg PO PRN 11/12/20 11/28/20 Unknown History zolpidem 10 mg tablet 10 mg PO BEDTIME 11/12/20 11/28/20 Unknown History <Melanie Abdul NP - Last Filed: 11/21/20 17:14> Physical Exam Vital Signs and Narrative: Vital Signs: Last Vital Signs Temp 98.7 F 11/21/20 16:06 Pulse 95 11/21/20 16:58 Resp 14 11/21/20 16:06 BP 180/90 H 11/21/20 16:58 Pulse Ox 97 11/21/20 16:06 Body Mass Index 33.4 <Melanie Abdul NP - Last Filed: 11/21/20 17:14> Appearing in no acute distress head is normocephalic atraumatic eyes pupils are PERRLA sclera is anicteric mouth throat mucous membranes are intact and moist neck is supple no lymphadenopathy, no JVD noted lung sounds are clear to auscultation heart regular rate rhythm, clear S1, S2 positive bowel sounds, abdomen is soft, nontender neuro patient is alert x3, for 5/5 strength to bilateral lower extremities, 4-5 strength to left upper extremity, 5/5 strength to right upper extremity, no facial droop noted <Melanie Abdul NP - Last Filed: 11/21/20 17:14> Results Labs CBC and Chem 7: : 11/22/20 06:49 11/22/20 06:49 <Melanie Abdul NP - Last Filed: 11/21/20 17:14> Labs: Laboratory Results - last 24 hr 11/21/20 11/21/20 11/21/20 12:25 12:25 12:25 MCV 83.9 MCH 28.1 MCHC 33.5 RDW 11.9 Plt Count 366 MPV 9.3 L Immature Gran % (Auto) 0.2 Neut % (Auto) 70.3 Lymph % (Auto) 21.8 Pierce % (Auto) 5.5 Eos % (Auto) 1.9 Baso % (Auto) 0.3 Lymph # (Auto) 2.3 Pierce # (Auto) 0.6 Eos # (Auto) 0.2 Baso # (Auto) 0.0 Abs Immat Gran (auto) 0.02 Absolute Neuts (auto) 7.5 Absolute Nucleated RBC 0.000 Nucleated RBC % (auto) 0.0 PT 11.6 INR 1.0 APTT 37.4 Anion Gap 15 Estim Creat Clear Calc 55.7 Estimated GFR 59 POC Glucose Random Glucose 330 H D Calcium 9.3 Magnesium 1.9 Total Bilirubin 0.4 AST 22 ALT 31 Alkaline Phosphatase 115 Total Creatine Kinase 32 Troponin I High Sens Total Protein 7.7 Albumin 4.0 TSH 2.06 Coronavirus (PCR) Influenza Type A (PCR) Influenza Type B (PCR) RSV RNA Qual (PCR) 11/21/20 11/21/20 11/21/20 12:25 12:25 12:51 MCV MCH MCHC RDW Plt Count MPV Immature Gran % (Auto) Neut % (Auto) Lymph % (Auto) Pierce % (Auto) Eos % (Auto) Baso % (Auto) Lymph # (Auto) Pierce # (Auto) Eos # (Auto) Baso # (Auto) Abs Immat Gran (auto) Absolute Neuts (auto) Absolute Nucleated RBC Nucleated RBC % (auto) PT INR APTT Anion Gap Estim Creat Clear Calc Estimated GFR POC Glucose 296 H Random Glucose Calcium Magnesium Total Bilirubin AST ALT Alkaline Phosphatase Total Creatine Kinase Troponin I High Sens < 3.5 Total Protein Albumin TSH Coronavirus (PCR) NEGATIVE Influenza Type A (PCR) NEGATIVE Influenza Type B (PCR) NEGATIVE RSV RNA Qual (PCR) NEGATIVE 11/21/20 15:20 MCV MCH MCHC RDW Plt Count MPV Immature Gran % (Auto) Neut % (Auto) Lymph % (Auto) Pierce % (Auto) Eos % (Auto) Baso % (Auto) Lymph # (Auto) Pierce # (Auto) Eos # (Auto) Baso # (Auto) Abs Immat Gran (auto) Absolute Neuts (auto) Absolute Nucleated RBC Nucleated RBC % (auto) PT INR APTT Anion Gap Estim Creat Clear Calc Estimated GFR POC Glucose 288 H Random Glucose Calcium Magnesium Total Bilirubin AST ALT Alkaline Phosphatase Total Creatine Kinase Troponin I High Sens Total Protein Albumin TSH Coronavirus (PCR) Influenza Type A (PCR) Influenza Type B (PCR) RSV RNA Qual (PCR) <Melanie Abdul NP - Last Filed: 11/21/20 17:14> Imaging Radiologist's Impressions: Impressions Chest X-Ray 11/21/20 12:04 IMPRESSION: No evidence of acute disease. Head CT 11/21/20 12:04 IMPRESSION: No CT evidence of intracranial space-occupying mass, bleed or infarct. Normal CT scan does not rule out the possibility of hyperacute infarct in the first 12 hours. If patient symptoms persist may consider correlation with MRI, which is more sensitive for early acute infarct. This critical result was discussed with Kayce zamorano by telephone at 11/21/2020 12:31 PM and it was ascertained that the content and urgency of the report was understood at the time of direct communication. Head/Neck CTA 11/21/20 12:06 IMPRESSION: No stenosis of the cervical carotid or vertebral arteries and no intracranial large vessel occlusion. There is however moderate to high-grade focal narrowing involving the midportion of the basilar artery and the P2 segment of the left posterior cerebral artery. Mild irregular narrowing is also visualized within the cavernous internal carotid arteries and a few M2 segments of both middle cerebral arteries. No evidence of acute territorial infarct. No abnormal intracranial mass or enhancement. This critical result was discussed with Kayce ZAMORANO at 12:49 PM on 11/21/2020 and it was ascertained that the content and urgency of the report was understood at the time of direct communication. Brain MRI 11/21/20 13:10 IMPRESSION: There is an acute lacunar infarct involving the right thalamus. This acute finding is superimposed upon a few scattered chronic small vessel ischemic changes within the periventricular white matter. <Melanie Abdul NP - Last Filed: 11/21/20 17:14> Assessment and Plan (1) Right thalamic stroke: Status: Acute <Melanie Abdul NP - Last Filed: 11/21/20 17:14> 60-year-old woman admitted with stroke. Initially had symptoms upon waking and continues to have very mild numbness to her left side of her face left arm left thumb and some to her left lower extremity although she reports symptoms have for the most part subsided Acute stroke. Lacunar infarct involving the right thalamus Head and neck CTA show no stenosis of the cervical carotid or vertebral arteries, no intracranial large vessel occlusion Symptoms have mostly resolved Neurology consultation Close monitoring of blood pressure due to hypertensive urgency PT/OT Echo aspirin, statin Hypertensive urgency. Systolic blood pressure as high as 220s Received home dose of losartan in the ER because she missed the morning dose Blood pressure continues to be elevated, given labetalol Allow for permissive hypertension but not with systolic blood pressure over 200s. Diabetes mellitus. Needs better blood sugar control Hemoglobin A1c 10.3 Sliding scale, ADA diet start Lantus 10 units at bedtime Mental health Continue home medications DVT prophylaxis with heparin Attending Dr. Terrazas Full code <Melanie Abdul NP - Last Filed: 11/21/20 17:14> 60-year-old woman admitted with stroke. Initially had symptoms upon waking and continues to have very mild numbness to her left side of her face left arm left thumb and some to her left lower extremity although she reports symptoms have for the most part subsided Acute stroke. Lacunar infarct involving the right thalamus Head and neck CTA show no stenosis of the cervical carotid or vertebral arteries, no intracranial large vessel occlusion Symptoms have mostly resolved Neurology consultation Close monitoring of blood pressure due to hypertensive urgency PT/OT Echo aspirin, statin Hypertensive urgency. Systolic blood pressure as high as 220s Received home dose of losartan in the ER because she missed the morning dose Blood pressure continues to be elevated, given labetalol Allow for permissive hypertension but not with systolic blood pressure over 200s. Diabetes mellitus. Needs better blood sugar control Hemoglobin A1c 10.3 Sliding scale, ADA diet start Lantus 10 units at bedtime Mental health Continue home medications DVT prophylaxis with heparin Attending Dr. Terrazas Full code I saw patient and discussued findings, assessment, plan and disposition with midlevel and I agree with the above <Shyamnia Terrazas MD - Last Filed: 12/25/20 21:30> Quality Stroke Does the patient have a stroke diagnosis?: Yes <Melanie Abdul NP - Last Filed: 11/21/20 17:14> Reason for No Anti-thrombotic by Day Two: N/A - Med Ordered <Melanie Abdlu NP - Last Filed: 11/21/20 17:14> VTE Prior VTE?: No <Melanie Abdul NP - Last Filed: 11/21/20 17:14> VTE Risk Level:: Medical - moderate - high <Melanie Abdul NP - Last Filed: 11/21/20 17:14> VTE Device Contraindication: Treatment Not Indicated <Melanie Abdul NP - Last Filed: 11/21/20 17:14> VTE Drug Contraindication: N/A - Med Ordered <Melanie Abdul NP - Last Filed: 11/21/20 17:14>
[2020-11-21] MEDS: Heparin Sodium,Porcine 5,000 UNIT/ML VIAL 5000 UNIT SUBCUT (17:18)
--- NOTE | 2020-11-21 19:46 | PC.NURSE ---
pt BP 196/98 - promotions team leader hospitalist notified and informed RN up to 200SBP is ok.
[2020-11-21] MEDS: Acetaminophen 325 MG TABLET 650 MG PO (20:49)
[2020-11-21 20:58] LABS: Glucose, Whole Blood 337 mg/dL (60-115)
[2020-11-21] MEDS: Atorvastatin Calcium 80 MG TABLET PO (21:01)
[2020-11-21] MEDS: Gabapentin 400 MG CAPSULE PO (21:01)
[2020-11-21] MEDS: Insulin Lispro 100 UNIT/ML 3 ML VIAL SUBCUT (21:01)
[2020-11-21] MEDS: Insulin Glargine,Hum.rec.anlog 100 UNIT/ML 10 ML VIAL 10 UNIT SUBCUT (21:02)
[2020-11-21] MEDS: Zolpidem Tartrate 5 MG TABLET PO (22:37)
--- NOTE | 2020-11-21 23:30 | PC.NURSE ---
REPORT/CARE RECEIVED AT 23:00. PT RESTING IN ER ROOM 5, AWAITING ROOM ASSIGNMENT. PT HAS CLEAR SPEECH, NUMBNESS IN FINGERTIPS OF LEFT HAND, AND STILL EXPERIENCING LEFT LEG WEAKNESS.
[2020-11-22] VITALS (10 sets, daily range): BP systolic 134–190; BP diastolic 75–95; PULSE 70–96; RESP 16–21; TEMP 36–37; O2SAT 96–99
--- NOTE | 2020-11-22 05:57 | PC.NURSE ---
WOKE PT FOR POC AND MEDICATION. PT REPORTS FINGER TIPS STILL NUMB ON LEFT HAND. SPEECH IS CLEAR.
[2020-11-22] MEDS: Heparin Sodium,Porcine 5,000 UNIT/ML VIAL 5000 UNIT SUBCUT ×2 (05:59→16:25)
[2020-11-22 06:07] LABS: Glucose, Whole Blood 243 mg/dL (60-115)
[2020-11-22 06:53] LABS: MANUAL DIFF FLAG NO
[2020-11-22 06:57] LABS: Basophils Percent Auto 0.3 % (0-2); Eosinophils Absolute Auto 0.2 X10*3/uL (0.0-0.4); Eosinophils Percent Auto 2.4 % (0-4); Hematocrit 38.3 % (37-47); Hemoglobin 12.9 g/dl (12.0-16.0); Imm Gran Abs Auto 0.03 X10*3/uL (0.00-0.03); Imm Gran Pct Auto 0.3 % (0.0-0.4); Lymphocytes Absolute Auto 3.6 X10*3/uL (1.2-4.9); Lymphocytes Percent Auto 40.4 % (20-40); Mean Corpuscular HGB Conc 33.7 g/dl (31.0-35.0); Mean Corpuscular Hemoglobin 28.5 pg (27.0-33.0); Mean Corpuscular Volume 84.7 fL (80-98); Mean Platelet Volume 9.2 fL (9.4-12.3); Monocytes Absolute Auto 0.6 X10*3/uL (0.1-1.2); Monocytes Percent Auto 6.8 % (2-11); Neutrophils Absolute Auto 4.5 X10*3/uL (2.0-8.3); Neutrophils Percent Auto 49.8 % (45-73); Platelet Count 384 X10*3/uL (160-400); Red Blood Count 4.52 X10*6/uL (4.20-5.50); Red Cell Distribution Width 11.9 % (11.0-16.0)
--- NOTE | 2020-11-22 07:16 | PC.NURSE ---
Patient is resting quietly in bed in no acute distress. Pt is alert and oriented.
--- NOTE | 2020-11-22 07:30 | PC.NURSE ---
Report given to SEAN Villagomez.
--- NOTE | 2020-11-22 07:30 | CA_ITS ---
Transthoracic Echocardiogram Patient (Last, First, Middle): Britt Herbert, Gender: Female Date of : 1960 Age: 60 Procedure Date: 11/22/2020 Procedure Type: Transthoracic Echocardiogram Location: OP Height: 149.86 cm Weight: 74.84 kg BSA: 1.70 m2 Heart Rate: bpm BP: 135 / 76 mmHg Juice Standardizer: RAFA Durán MD: Melanie Abdul NP Food Service: Winston Allen MD Symptoms: stroke Study Quality: Fair ECG Rhythm: Sinus Conclusions: - 1. No evidence of PFO 2. Normal LV systolic function with mild LVH with impaired relaxation filling pattern 3. Normal cardiac valvular Doppler 4. Normal RV systolic pressure 5. No gross pericardial effusion Findings Procedure Information The patient receives contrast. Left Ventricle Normal left ventricular size and systolic function. There is mildly increased left ventricular wall thickness. The visually estimated ejection fraction is between 65-70%. Spectral Doppler is indicative of an impaired relaxation filling pattern. E/E prime ratio is <8, consistent with normal filling pressures. Atria The left atrium is normal in size. There is no evidence of interatrial shunt by agitated saline. The right atrium was not well visualized. Aortic Valve The aortic valve was not well visualized. There is no aortic valve stenosis. There is no aortic valve regurgitation. Mitral Valve Likely normal mitral valve structure and function. There is trace mitral valve regurgitation. There is no mitral valve stenosis. Pulmonic Valve The pulmonic valve was not well visualized. Tricuspid Valve The tricuspid valve was not well visualized. There is trace tricuspid valve regurgitation. The right ventricular systolic pressure is normal. The right ventricular systolic pressure is 22 mmHg. Normal right atrial pressure. There is no evidence of pulmonary hypertension. Great Vessels The aorta was not well visualized. The pulmonary artery was not well visualized. Venous The inferior vena cava is normal in size and collapses greater than 50% with inspiration. Pericardium/Pleural There is no evidence of pericardial effusion. Prior Study Comparison No prior study available for comparison. Measurements 2D Linear Measurements RVIDd: 2.47 RVIDd Index: 1.45 IVSd: 1.10 0.6-0.9/0.6-1.0 cm LVIDd: 4.10 3.9-5.3/4.2-5.9 cm LVIDd Index: 2.41 2.4-3.2/2.2-3.1 cm/m2 LVIDs: 3.01 2.0-3.6 cm LVPWd: 1.19 0.7-1.1 cm Ao Root: 3.00 2.1-3.5 cm LA Diam: 3.20 2.7-3.8/3.0-4.0 cm LAIDs Index: 1.88 1.5-2.3 cm/m2 LV Mass: 199.68 67-162/88-224 g LV Mass Index: 117.46 43-95/49-115 g/m2 LVOT Diam: 2.10 3.0+(-)1.3 cm 2D Systolic Function EF 4C: 61.60 >55% EF 2C: 76.90 >55% Mitral Valve E'Lateral: 6.74 E'Medial: 3.81 Aortic Valve AoV Pk Easton: 1.33 AoV Mn Easton: 0.99 AoV VTI: 0.22 AoV Pk Grad: 7.00 Aov Mn Grad: 5.00 SHARRI Cont.VTI: 1.75 LVOT LVOT Pk Easton: 0.96 LVOT Mn Easton: 0.54 LVOT VTI: 0.11 LVOT Pk Grad: 4.00 LVOT Mn Grad: 2.00 LVOT Diam: 2.10 LVOT Area: 3.46 Diastolic Function E'Medial: 3.81 E' Laterial: 6.74 Right Ventricle TVS' Easton: 10.00 Tricuspid Valve TR Pk Easton: 2.20 TR Pk Grad: 19.00 RA Press: 3.00 RVSP: 22.00 Great Vessels Aorta Ao Root-2D: 3.00 2.0-3.7 cm Ao Asc: 3.10 2.1-3.4 cm Ao Arch: 2.20 Updated in Other Vendor System with Status of Final Winston Allen MD electronically signed on 11/22/2020 5:20:33 PM with status of Final
[2020-11-22 07:35] LABS: Anion Gap 14 (12-20); Blood Urea Nitrogen 18 mg/dL (9-16); Calcium 9.8 mg/dL (8.4-10.2); Carbon Dioxide 28 mmol/L (22-29); Chloride 99 mmol/L (96-108); Creatinine Clr Calc Pharmacy 50.4; Estimated Glomerular Filt Rate 53; Glucose Random 269 mg/dL (60-115); Potassium 4.1 mmol/L (3.3-5.1); Sodium 137 mmol/L (135-145)
[2020-11-22 07:36] LABS: Cholesterol 214 mg/dL; HDL Cholesterol 38 mg/dL; LDL Cholesterol Calculated 123 mg/dl; Triglycerides 268 mg/dL
[2020-11-22] MEDS: Insulin Lispro 100 UNIT/ML 3 ML VIAL SUBCUT ×4 (07:37→20:57)
[2020-11-22 07:54] LABS: Glucose, Whole Blood 298 mg/dL (60-115)
--- NOTE | 2020-11-22 09:12 | MHC.CM.PN ---
CM met with Patient at bedside and addressed IMM, providing Patient with the original and placing a copy on the chart/Patient lives ion an apartment with her Boyfriend, who is disabled himself and will be able to provide only minimal assistance. 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 Patient's goal for dc is to return home with new [facility] for home PT and CM has initiated and will follow for dc planning. Patient is presently working on applying for a [employer] sales. PCP is /Michael Peoples. Patient is still considering which of her Daughters she would like to name as her HCP Agent.
[2020-11-22 11:47] LABS: Glucose, Whole Blood 335 mg/dL (60-115)
[2020-11-22] MEDS: buPROPion HCl XL 300 MG TAB.ER.24H PO (11:54)
[2020-11-22] MEDS: FLUoxetine HCl 20 MG CAPSULE PO (11:54)
[2020-11-22] MEDS: Aspirin 81 MG TAB.CHEW PO (11:54)
[2020-11-22] MEDS: Gabapentin 400 MG CAPSULE PO ×3 (11:54→20:57)
[2020-11-22] MEDS: Acetaminophen 325 MG TABLET 650 MG PO (11:55)
--- NOTE | 2020-11-22 12:53 | PM.IMPN ---
Progress Note: A&P (1) Right thalamic stroke: Status: Acute Assessment and Plan: 10-year-old woman? admitted with stroke.? Initially had symptoms upon waking and continues to have very mild numbness to her left side of her face left arm left thumb and some to her left lower extremity although she reports symptoms have for the most part subsided Acute stroke.? Lacunar infarct involving the right thalamus Head and neck CTA show no stenosis of the cervical carotid or vertebral arteries, no intracranial large vessel occlusion Symptoms have mostly resolved Neurology consultation Close monitoring of blood pressure due to hypertensive urgency Seen and evaluated by PT, home with services Echo aspirin, statin Hypertensive urgency.? Systolic blood pressure as high as 220s BP still high will likely need to add second agent for better control Received home dose of losartan in the ER because she missed the morning dose Blood pressure continues to be elevated, given labetalol Allow for permissive hypertension but not with systolic blood pressure over 200s. Diabetes mellitus.? Needs better blood sugar control Hemoglobin A1c 10.3 Sliding scale, ADA diet start Lantus 10 units at bedtime Mental health Continue home medications DVT prophylaxis with heparin Attending Dr. Stoddard Full code Subjective Subjective Date of Service: 11/22/20 Interval History: Follow up stroke better today numbness to left side resolving Physical Exam Vital Signs: Vital Signs: Last Vital Signs Temp 97.0 F 11/22/20 11:43 Pulse 89 11/22/20 11:43 Resp 18 11/22/20 11:43 BP 185/75 H 11/22/20 11:43 Pulse Ox 98 11/22/20 11:43 Body Mass Index 33.4 Appearing in no acute distress lung sounds are clear to auscultation heart regular rate rhythm, clear S1, S2 positive bowel sounds, abdomen is soft, nontender neuro patient is alert x3, no focal deficits Objective Data Current Medications Generic Name Dose Route Start Last Admin Trade Name Freq PRN Reason Stop Dose Admin Acetaminophen 650 mg 11/21/20 16:49 11/22/20 11:55 Acetaminophen 325 Mg Tablet PO 650 mg Q6H PRN Administration Pain, Mild (Pain Scale 1-3) Aspirin 81 mg 11/22/20 09:00 11/22/20 11:54 Aspirin 81 Mg Tab.Chew PO 81 mg DAILY CHRIS Administration Atorvastatin Calcium 80 mg 11/21/20 21:00 11/21/20 21:01 Atorvastatin Calcium 80 Mg Tablet PO 80 mg BEDTIME CHRIS Administration Bupropion HCl 300 mg 11/22/20 09:00 11/22/20 11:54 Bupropion Hcl Xl 300 Mg Tab.Er.24h PO 300 mg DAILY CHRIS Administration Dextrose 25 gm 11/21/20 17:05 Dextrose 50 % 25 Gm/50 Ml Vial IVPUSH Q15M PRN per Hypoglycemia Standing Ord. Protocol Fluoxetine HCl 20 mg 11/22/20 09:00 11/22/20 11:54 Fluoxetine Hcl 20 Mg Capsule PO 20 mg DAILY CHRIS Administration Gabapentin 400 mg 11/21/20 21:00 11/22/20 11:54 Gabapentin 400 Mg Capsule PO 400 mg TID CHRIS Administration Glucose 15 gm 11/21/20 17:05 Glucose Gel 15 Gm Gel..Gram. PO Q15M PRN per Hypoglycemia Standing Ord. Protocol Heparin Sodium (Porcine) 5,000 unit 11/21/20 17:00 11/22/20 05:59 Heparin Sodium,Porcine 5,000 Unit/Ml Vial SUBCUT 5,000 unit Q12H CHRIS Administration Insulin Glargine 10 unit 11/21/20 21:00 11/21/20 21:02 Insulin Glargine,Hum.Rec.Anlog 100 Unit/Ml 10 Ml Vial SUBCUT 10 unit BEDTIME CHRIS Administration Insulin Human Lispro 0 unit 11/21/20 21:00 11/22/20 11:55 Insulin Lispro 100 Unit/Ml 3 Ml Vial SUBCUT 8 unit QIDACHS CHRIS Administration Protocol Labetalol HCl 10 mg 11/21/20 19:47 Labetalol Hcl 100 Mg/20 Ml Vial IVPUSH Q4H PRN SBP>200 Non-Formulary Medication 0.75 mg 11/21/20 17:00 Dulaglutide [Trulicity] SUBCUT Q7D CHRIS Ondansetron HCl 4 mg 11/21/20 16:49 Ondansetron Hcl 4 Mg/2 Ml Vial IVPUSH Q8H PRN Nausea and Vomiting Zolpidem Tartrate 5 mg 11/21/20 21:00 11/21/20 22:37 Zolpidem Tartrate 5 Mg Tablet PO 5 mg BEDTIME CHRIS Administration Labs CBC & Chem 7: 11/22/20 06:49 11/22/20 06:49 Labs: Laboratory Results - last 24 hr 11/21/20 11/21/20 11/21/20 12:25 12:25 12:51 MCV MCH MCHC RDW Plt Count MPV Immature Gran % (Auto) Neut % (Auto) Lymph % (Auto) Crawford % (Auto) Eos % (Auto) Baso % (Auto) Lymph # (Auto) Crawford # (Auto) Eos # (Auto) Baso # (Auto) Abs Immat Gran (auto) Absolute Neuts (auto) Absolute Nucleated RBC Nucleated RBC % (auto) Anion Gap 15 Estim Creat Clear Calc 55.7 Estimated GFR 59 POC Glucose Random Glucose 330 H D Calcium 9.3 Magnesium 1.9 Total Bilirubin 0.4 AST 22 ALT 31 Alkaline Phosphatase 115 Total Creatine Kinase 32 Troponin I High Sens < 3.5 Total Protein 7.7 Albumin 4.0 Triglycerides Cholesterol LDL Cholesterol, Calc HDL Cholesterol TSH 2.06 Coronavirus (PCR) NEGATIVE Influenza Type A (PCR) NEGATIVE Influenza Type B (PCR) NEGATIVE RSV RNA Qual (PCR) NEGATIVE 11/21/20 11/21/20 11/22/20 15:20 20:54 05:56 MCV MCH MCHC RDW Plt Count MPV Immature Gran % (Auto) Neut % (Auto) Lymph % (Auto) Crawford % (Auto) Eos % (Auto) Baso % (Auto) Lymph # (Auto) Crawford # (Auto) Eos # (Auto) Baso # (Auto) Abs Immat Gran (auto) Absolute Neuts (auto) Absolute Nucleated RBC Nucleated RBC % (auto) Anion Gap Estim Creat Clear Calc Estimated GFR POC Glucose 288 H 337 H 243 H Random Glucose Calcium Magnesium Total Bilirubin AST ALT Alkaline Phosphatase Total Creatine Kinase Troponin I High Sens Total Protein Albumin Triglycerides Cholesterol LDL Cholesterol, Calc HDL Cholesterol TSH Coronavirus (PCR) Influenza Type A (PCR) Influenza Type B (PCR) RSV RNA Qual (PCR) 11/22/20 11/22/20 11/22/20 06:49 06:49 06:49 MCV 84.7 MCH 28.5 MCHC 33.7 RDW 11.9 Plt Count 384 MPV 9.2 L Immature Gran % (Auto) 0.3 Neut % (Auto) 49.8 Lymph % (Auto) 40.4 H Crawford % (Auto) 6.8 Eos % (Auto) 2.4 Baso % (Auto) 0.3 Lymph # (Auto) 3.6 Crawford # (Auto) 0.6 Eos # (Auto) 0.2 Baso # (Auto) 0.0 Abs Immat Gran (auto) 0.03 Absolute Neuts (auto) 4.5 Absolute Nucleated RBC 0.000 Nucleated RBC % (auto) 0.0 Anion Gap 14 Estim Creat Clear Calc 50.4 Estimated GFR 53 POC Glucose Random Glucose 269 H Calcium 9.8 Magnesium Total Bilirubin AST ALT Alkaline Phosphatase Total Creatine Kinase Troponin I High Sens Total Protein Albumin Triglycerides 268 Cholesterol 214 LDL Cholesterol, Calc 123 HDL Cholesterol 38 TSH Coronavirus (PCR) Influenza Type A (PCR) Influenza Type B (PCR) RSV RNA Qual (PCR) 11/22/20 11/22/20 07:51 11:42 MCV MCH MCHC RDW Plt Count MPV Immature Gran % (Auto) Neut % (Auto) Lymph % (Auto) Crawford % (Auto) Eos % (Auto) Baso % (Auto) Lymph # (Auto) Crawford # (Auto) Eos # (Auto) Baso # (Auto) Abs Immat Gran (auto) Absolute Neuts (auto) Absolute Nucleated RBC Nucleated RBC % (auto) Anion Gap Estim Creat Clear Calc Estimated GFR POC Glucose 298 H 335 H Random Glucose Calcium Magnesium Total Bilirubin AST ALT Alkaline Phosphatase Total Creatine Kinase Troponin I High Sens Total Protein Albumin Triglycerides Cholesterol LDL Cholesterol, Calc HDL Cholesterol TSH Coronavirus (PCR) Influenza Type A (PCR) Influenza Type B (PCR) RSV RNA Qual (PCR) Quality Stroke Does the patient have a stroke diagnosis?: Yes Reason for No Anti-thrombotic by Day Two: N/A - Med Ordered VTE Prior VTE?: No VTE Risk Level:: Medical - moderate - high VTE Device Contraindication: Treatment Not Indicated VTE Drug Contraindication: N/A - Med Ordered
[2020-11-22] MEDS: lisinopriL 2.5 MG TABLET PO (13:30)
--- NOTE | 2020-11-22 14:37 | P.CNNE_ITS ---
History of Present Illness Data of Consult Service Date: 11/22/20 Primary Care Provider: Michael Peoples MD HPI Reason for consult: Left-sided numbness 60 years old woman who probably has underlying history of migraine woke up yesterday and noted that her left side was numb. She thought she had slept on that side but also noted a severe head pressure. Later when she tried to walk she had difficulty walking on left leg and came to hospital. Now her headache was better after taking some pain medicine and left-sided numbness was also better. There was no history of recent trauma or confusion or fever chills or cold or flu-like illness. REPLACED BY [facility] Past Medical History Medical History Anemia, iron deficiency Anxiety Depression Diabetes mellitus Fibromyalgia GERD without esophagitis HTN (hypertension) Insomnia Lumbar degenerative disc disease Obesity (BMI 30-39.9) Pure hypercholesterolemia Sciatic pain Family History Family History (Updated 11/21/20 @ 17:10 by Melanie Abdul NP) Father Suicide Epilepsy Mother Poor high blood pressure control Diabetes Hypertension Daughter Spina bifida Brother Stroke Other Mental health problem Surgical History Surgical History H/O bilateral breast reduction surgery History of appendectomy History of carpal tunnel release History of section History of hysterectomy History of left salpingo-oophorectomy Social History Social History Household Members: Significant Other Housing: Apartment Do you presently have visiting nurse or other home services: No Alcohol intake: never Patient Tobacco Use Status: Never used Tobacco Second Hand Smoke Exposure: Yes Use of substances other than those prescribed or required for medical reasons: No Currently Displaying Signs/Symptoms of Drug Intoxication Withdrawal: No Have you been hit, kicked, punched, or otherwise hurt by someone within the past year? If so, by whom?: No Do you feel safe in your current relationship?: Yes Is there a partner from a previous relationship who is making you feel unsafe now?: No Are you made to feel afraid or neglected: No [employer] Practices: Sabianism Advance Directives: No Advance Directives Information Provided: Yes Do you have thoughts of harming others: None Do you have a plan to hurt others: No Plan Recently lost weight without trying: No Eating poorly because of decreased appetite: No Nutrition Risks: No Nutritional Risk Patient : No : No Poor oral hygiene: No service: No Current occupational status: disabled Meds Allergies Allergy/AdvReac Type Severity Reaction Status Date / Time ibuprofen [From Motrin] Allergy Mild STOMACH Verified 11/12/20 15:05 UPSET oxycodone [From Percocet] Allergy Mild ITCHING Verified 11/12/20 15:05 lactose [LACTOSE] Allergy Unknown ABD PAIN Verified 11/12/20 15:05 metformin AdvReac Unknown nausea, Verified 11/12/20 15:05 somnolence Active Medications: Current Medications Generic Name Dose Route Start Last Admin Trade Name Freq PRN Reason Stop Dose Admin Acetaminophen 650 mg 11/21/20 16:49 11/22/20 11:55 Acetaminophen 325 Mg Tablet PO 650 mg Q6H PRN Administration Pain, Mild (Pain Scale 1-3) Aspirin 81 mg 11/22/20 09:00 11/22/20 11:54 Aspirin 81 Mg Tab.Chew PO 81 mg DAILY CHRIS Administration Atorvastatin Calcium 80 mg 11/21/20 21:00 11/21/20 21:01 Atorvastatin Calcium 80 Mg Tablet PO 80 mg BEDTIME CHRIS Administration Bupropion HCl 300 mg 11/22/20 09:00 11/22/20 11:54 Bupropion Hcl Xl 300 Mg Tab.Er.24h PO 300 mg DAILY CHRIS Administration Dextrose 25 gm 11/21/20 17:05 Dextrose 50 % 25 Gm/50 Ml Vial IVPUSH Q15M PRN per Hypoglycemia Standing Ord. Protocol Fluoxetine HCl 20 mg 11/22/20 09:00 11/22/20 11:54 Fluoxetine Hcl 20 Mg Capsule PO 20 mg DAILY CHRIS Administration Gabapentin 400 mg 11/21/20 21:00 11/22/20 11:54 Gabapentin 400 Mg Capsule PO 400 mg TID CHRIS Administration Glucose 15 gm 11/21/20 17:05 Glucose Gel 15 Gm Gel..Gram. PO Q15M PRN per Hypoglycemia Standing Ord. Protocol Heparin Sodium (Porcine) 5,000 unit 11/21/20 17:00 11/22/20 05:59 Heparin Sodium,Porcine 5,000 Unit/Ml Vial SUBCUT 5,000 unit Q12H CHRIS Administration Insulin Glargine 10 unit 11/21/20 21:00 08/08/21 21:02 Insulin Glargine,Hum.Rec.Anlog 100 Unit/Ml 10 Ml Vial SUBCUT 10 unit BEDTIME [facility] Administration Insulin Human Lispro 0 unit 11/21/20 21:00 11/22/20 11:55 Insulin Lispro 100 Unit/Ml 3 Ml Vial SUBCUT 8 unit QIDACHS [facility] Administration Protocol Labetalol HCl 10 mg 11/21/20 19:47 Labetalol Hcl 100 Mg/20 Ml Vial IVPUSH Q4H PRN SBP>200 Lisinopril 2.5 mg 11/22/20 13:05 11/22/20 13:30 Lisinopril 2.5 Mg Tablet PO 2.5 mg DAILY [facility] Administration Protocol Ondansetron HCl 4 mg 11/21/20 16:49 Ondansetron Hcl 4 Mg/2 Ml Vial IVPUSH Q8H PRN Nausea and Vomiting Zolpidem Tartrate 5 mg 11/21/20 21:00 11/21/20 22:37 Zolpidem Tartrate 5 Mg Tablet PO 5 mg BEDTIME [facility] Administration Home Medications Medication Instructions Recorded Confirmed Last Taken Type potassium chloride 10 mEq 10 meq PO DAILY 03/08/20 11/12/20 Unknown History tablet,extended release(part/cryst) blood sugar diagnostic 11/12/20 11/21/20 Unknown History bupropion HCl 300 mg 24 hr tablet, 300 mg PO DAILY 11/12/20 11/21/20 Unknown History extended release fluoxetine 20 mg capsule 20 mg PO DAILY 11/12/20 11/21/20 Unknown History lancets (OneTouch UltraSoft 11/12/20 11/12/20 Unknown History Lancets) lorazepam 0.5 mg tablet 0.5 mg PO PRN 11/12/20 11/12/20 Unknown History zolpidem 10 mg tablet 10 mg PO BEDTIME 11/12/20 11/21/20 Unknown History Physical Exam Vital Signs: Vital Signs: Last Vital Signs Temp 97.0 F 11/22/20 11:43 Pulse 89 11/22/20 13:30 Resp 18 11/22/20 11:43 BP 185/75 H 11/22/20 13:30 Pulse Ox 98 11/22/20 11:43 Body Mass Index 33.4 Neuro: Other: She was alert awake with normal spontaneity of speech fluency comprehension and affect. Pupils were equal and reactive to light. Extraocular muscles were intact. Visual billy are full. Face was symmetrical. There was no pronator drift. Deep tendon reflexes were trace to absent with flexor plantars. Affect was normal. Results Labs CBC & Chem 7: 11/22/20 06:49 11/22/20 06:49 Labs: Short CBC 11/22/20 Range/Units 06:49 WBC 9.0 (4.8-10.8) X10*3/uL Hgb 12.9 (12.0-16.0) g/dl Hct 38.3 (37-47) % Plt Count 384 (160-400) X10*3/uL BMP 11/22/20 06:49 Sodium 137 Potassium 4.1 Chloride 99 Carbon Dioxide 28 BUN 18 H D Creatinine 1.06 Calcium 9.8 Her noncontrast MRI of brain revealed a small right lateral thalamic posterior limb of internal capsule acute infarct. CTA revealed multiple intracranial atherosclerotic lesions. Assessment and Plan (1) Right thalamic stroke: Status: Acute 60 years old woman with uncontrolled hypertension and uncontrolled hyperlipidemia presented with new onset of left-sided numbness due to a small right lateral thalamic ischemic infarct. She woke up with this lesion. Intravenous tPA type of treatment was not a consideration and she did not have any significant vascular lesion for intra-arterial treatment. She did have significant intracranial atherosclerotic disease that likely was contributing. Mainstay of management at this time is anti-platelet agent blood pressure control and higher dose statin treatment to bring her LDL below 70. Procedures Date of Service Date of Service: 11/22/20
[2020-11-22 16:08] LABS: Glucose, Whole Blood 395 mg/dL (60-115)
--- NOTE | 2020-11-22 16:47 | MHC.SL.SWA ---
Speech Pathologist Impression: Within Functional Limits Risk of Aspiration Due to: Neurological Condition Dysphasia Diet Status: No Change Liquid Consistency and Strategies for Safe Swallow: Liquid Intake Recommendation: Thin Liquid Intake Strategies: Small Sips Solid Food Consistency: Dietary Recommendations: Regular Oral Medication Intake: Whole with Liquid Compensatory Strategies and Precautions to be Taken for Safe Swallow: Sitting Upright (90 deg) Small Bites and Sips Alternate Liquids/Solids Rate of Ingestion Change Supervision While Eating and Drinking for Safe Swallow: None Needed Recommendation for Speech: NA:Typical Evaluation Comment: Patient reports speech is back at baseline though she reports she still feels some numbness in her lips. Patient was able to follow directions, answer questions, and engage in conversation with ease. Patient was 100% intelligible. No overt s/s of aspiration when eating solids and liquids. SENIOR ANALYTICAL CHEMIST educated patient on risk of aspiration after stroke and overt s/s of aspiration. Patient passed bedside swallow evaluation. Child And Adolescent Psychologist Clinican/Clinical Fellow: No Supervisory Statement: I have reviewed and agree with the student/clinical fellow's documentation: N/A Speech Language Pathologist: Antonella Correa M.A., CCC-SENIOR ANALYTICAL CHEMIST
[2020-11-22 19:53] LABS: Glucose, Whole Blood 307 mg/dL (60-115)
[2020-11-22] MEDS: Atorvastatin Calcium 80 MG TABLET PO (20:57)
[2020-11-22] MEDS: Insulin Glargine,Hum.rec.anlog 100 UNIT/ML 10 ML VIAL 10 UNIT SUBCUT (20:58)
[2020-11-22] MEDS: Zolpidem Tartrate 5 MG TABLET PO (21:48)
[2020-11-23 04:00] VITALS: BP 132/69; PULSE 92; RESP 20; TEMP 36.6; O2SAT 95
[2020-11-23] MEDS: Heparin Sodium,Porcine 5,000 UNIT/ML VIAL 5000 UNIT SUBCUT (05:15)
[2020-11-23 07:23] LABS: Glucose, Whole Blood 230 mg/dL (60-115)
[2020-11-23 07:34] VITALS: BP 140/76; PULSE 77; RESP 18; TEMP 36.4; O2SAT 99
[2020-11-23] MEDS: Insulin Lispro 100 UNIT/ML 3 ML VIAL SUBCUT ×3 (07:56→12:39)
[2020-11-23 07:58] VITALS: BP 140/76; PULSE 77
[2020-11-23] MEDS: lisinopriL 2.5 MG TABLET PO (07:58)
[2020-11-23] MEDS: FLUoxetine HCl 20 MG CAPSULE PO (07:58)
[2020-11-23] MEDS: Gabapentin 400 MG CAPSULE PO (07:58)
[2020-11-23] MEDS: buPROPion HCl XL 300 MG TAB.ER.24H PO (07:58)
[2020-11-23] MEDS: Aspirin 81 MG TAB.CHEW PO (07:58)
[2020-11-23] MEDS: Acetaminophen 325 MG TABLET 650 MG PO (08:06)
--- NOTE | 2020-11-23 10:22 | PM.DS ---
DS: Providers Provider Date of Service: 11/23/20 Date of admission: 11/21/20 16:49 Date of discharge: 11/23/20 Primary care physician: Michael Peoples MD Admitting clinician: Melanie Abdul Attending physician on admission: [facility] Consults: 11/21/20 16:49 Consult to Neurology Routine Consulting Provider: [facility] Reason for consultation: stroke Has provider been notified: No Attending physician on discharge: [facility] Discharging clinician: Melanie Abdul DS: Diagnosis Discharge Diagnosis (1) Right thalamic stroke: Status: Acute DS: Medications Discharge Medications Home Medications: Home Medications Medication Instructions Recorded Confirmed potassium chloride 10 mEq 10 meq PO DAILY 03/08/20 11/12/20 tablet,extended release(part/cryst) blood sugar diagnostic 11/12/20 11/21/20 bupropion HCl 300 mg 24 hr tablet, 300 mg PO DAILY 11/12/20 11/21/20 extended release fluoxetine 20 mg capsule 20 mg PO DAILY 11/12/20 11/21/20 lancets (OneTouch UltraSoft 11/12/20 11/12/20 Lancets) lorazepam 0.5 mg tablet 0.5 mg PO PRN 11/12/20 11/12/20 zolpidem 10 mg tablet 10 mg PO BEDTIME 11/12/20 11/21/20 Previous Rx's Medication Instructions Recorded dulaglutide 0.75 mg/0.5 mL 0.75 mg SUBCUT QWEEK #2 ml 02/09/20 subcutaneous pen injector (Trulicity) gabapentin 400 mg capsule 400 mg PO TID #90 cap 07/16/20 glimepiride 4 mg tablet 4 mg PO QAM #30 tab 10/26/20 losartan 100 mg tablet 100 mg PO DAILY #30 tab 10/26/20 potassium chloride 10 mEq 10 meq PO QID #120 tab 10/26/20 tablet,extended release(part/cryst) alcohol swabs (Alcohol Pads) 1 pad TOPICAL DAILY 30 Days ea 11/23/20 aspirin 81 mg chewable tablet 81 mg PO DAILY #30 tab 11/23/20 atorvastatin 80 mg tablet 80 mg PO BEDTIME #30 tab 11/23/20 insulin glargine 100 unit/mL (3 10 unit SUBCUT QPM #3 ml 08/10/21 mL) subcutaneous pen (Lantus Solostar U-100 Insulin) lisinopril 2.5 mg tablet 2.5 mg PO DAILY #30 tab 11/23/20 pen needle, diabetic 31 gauge x #50 ea 11/23/2004/19 (Pen Needle) DS: Summary Hospital Course Hospital Course: HP as per admitting provider 60-year-old woman presented to the ER with left-sided weakness.? She reports that yesterday she felt fine and she woke up this morning feeling dizzy.? She reported that the left side of her face and tongue felt numb.? She did not know any speech, visual problems or facial droop.? She felt like her left arm left hand, fingers and thumbs felt numb and she also felt lightheaded.? She reported when she started walking she felt very off balance.? She sat up in bed at 1 point and felt a lot of head pressure.? She decided to come to the ER for further evaluation because she remembered her brother telling her similar symptoms and he had a stroke late last year.? MRI of the brain showed acute lacunar infarct involving the right thalamus.? Unfortunately she woke up with the symptoms therefore no tPA was administered.? Her blood pressure had been elevated significantly in the ER with systolic blood pressures over 200s, she had not taken her losartan in the morning therefore this was given which helped some.? Her A1c was noted to be elevated at the end of October at 10.3, blood sugars in the 300s in the ER during this visit.? She reports compliance with all of her medications and reported that her blood pressure is usually not this high.? During the interview she stated that her symptoms have mostly resolved and she only felt some mild numbness in her left arm and left hand.? She will be admitted for further management treatment of acute stroke . Acute lacunar infarct involving right thalamus. Patient presented with symptoms of numbness to the left side of her face, left arm and left lower extremity. She also reported feeling some dizziness. She reported family history of stroke including 2 brothers. Her symptoms of numbness improved significantly she had very mild symptoms just prior to discharge. She was started on aspirin and high-dose atorvastatin. She received stroke education. She was seen and evaluated by Neurology. Echocardiogram showed no evidence of PFO. Head CTA showed significant intracranial atherosclerotic disease, likely contributing factor. Her blood pressure was also quite elevated initially with systolic blood pressure over 200s. She was treated with her home dose of losartan, received a dose of labetalol in the ER. The following day she was started on low-dose lisinopril and blood pressures stabilized. At this point she is safe for discharge for physical therapy in the home and she will follow-up with her primary care provider as needed. Time Spent with Patient Time attestation: Total time spent providing and/or coordinating discharge services: Discharge coordination time: Greater than 30 minutes Quality: Stroke Does the patient have a stroke diagnosis?: Yes Reason for No Anti-thrombotic at DC: N/A - Med Ordered Reason for No Anticoagulant at DC: Drug treatment not indicated Reason Not Initiating IV-Tpa: Drug treatment not indicated Reason for No Anti-thrombotic by Day Two: N/A - Med Ordered Reason for No Statin at DC: N/A - Med Ordered Physical Exam Vital Signs: Vital Signs: Last Vital Signs Temp 97.6 F 11/23/20 07:34 Pulse 77 11/23/20 07:58 Resp 18 11/23/20 07:34 BP 140/76 H 11/23/20 07:58 Pulse Ox 99 11/23/20 07:34 Body Mass Index 33.4 Appearing in no acute distress head is normocephalic atraumatic eyes pupils are PERRLA sclera is anicteric mouth throat mucous membranes are intact and moist neck is supple no lymphadenopathy, no JVD noted lung sounds are clear to auscultation heart regular rate rhythm, clear S1, S2 positive bowel sounds, abdomen is soft, nontender neuro patient is alert x3, no focal deficits DS: Data Data Completed and Pending Labs on day of discharge: Laboratory Results - last 24 hr 11/22/20 11/22/20 11/22/20 11:42 16:05 19:46 POC Glucose 335 H 395 H* 307 H 11/23/20 07:10 POC Glucose 230 H Discharge Plan Discharge Anticipated Discharge Date/Time: 11/23/20 10:10 Patient Disposition: Home Health Service Discharge Diagnosis: Stroke Referrals: [facility] [Other] - 1 Week ([facility] TO PROVIDE VISITING NURSE AND HOME PHYSICAL THERAPY SERVICES ) Michael Peoples MD [Primary Care Provider] - 1 Week Discharge Medications: New atorvastatin 80 mg Tablet 80 mg PO BEDTIME Qty: 30 RF: 0 aspirin 81 mg Tablet,Chewable 81 mg PO DAILY Qty: 30 RF: 0 lisinopril 2.5 mg Tablet 2.5 mg PO DAILY Qty: 30 RF: 0 alcohol swabs [Alcohol Pads] Pads, Medicated 1 pad topical DAILY 30 Days RF: 0 Lantus Solostar U-100 Insulin 100 unit/mL (3 mL) insulin pen 10 unit subcut QPM Qty: 3 RF: 0 (DME) pen needle, diabetic [Pen Needle] 31 gauge x 1/4 needle See Rx Instructions .Route Qty: 50 RF: 0 Continued dulaglutide [Trulicity] 0.75 mg/0.5 mL pen injector 0.75 mg subcut QWEEK Qty: 2 RF: 8 potassium chloride 10 mEq tablet,ER particles/crystals 10 meq PO DAILY RF: 0 gabapentin 400 mg capsule 400 mg PO TID Qty: 90 RF: 1 losartan 100 mg tablet 100 mg PO DAILY Qty: 30 RF: 3 glimepiride 4 mg tablet 4 mg PO QAM Qty: 30 RF: 3 potassium chloride 10 mEq tablet,ER particles/crystals 10 meq PO QID Qty: 120 RF: 3 bupropion HCl 300 mg tablet extended release 24 hr 300 mg PO DAILY RF: 0 fluoxetine 20 mg capsule 20 mg PO DAILY RF: 0 zolpidem 10 mg tablet 10 mg PO BEDTIME RF: 0 lorazepam 0.5 mg tablet 0.5 mg PO PRN (Reason: Anxiety) RF: 0 (DME) blood sugar diagnostic Strip See Rx Instructions .Route RF: 0 No Action (DME) lancets [OneTouch UltraSoft Lancets] Misc See Rx Instructions .Route RF: 0 Discharge Orders: Discharge Order (Routine); Ordered 11/23/20 Ordered By: Melanie Abdul Diet: advance to usual diet Activity on Discharge: As tolerated Stand Alone Forms: Patient Portal Discharge page Care Plan Goals: Resolution of stroke symptoms Health Concerns: Stroke Here are steps to take to be healthier and reduce your risk of stroke: ? Don?t smoke and avoid second-hand smoke. ? Improve your eating habits. Eat foods low in saturated fat, trans fat, sodium and added sugars. ? Be physically active. ? Take your medicine as directed. ? Get your blood pressure checked regularly and work with your healthcare provider to manage it if it?s high. ? Reach and maintain a healthy weight. ? Decrease your stress level. ? Seek emotional support when it?s needed. ? Have regular medical checkups. Plan of Treatment: You have several new medications: Aspirin Atorvastatin Lisinopril (Hypertension) Lantus solostar pen (diabetes) Follow instructions carefully and take medications as prescribed Follow up with your primary care provider as needed Assessment: See discharge summary Discharge Date/Time: 11/23/20 12:44
[2020-11-23 10:53] VITALS: BP 159/77; PULSE 84; RESP 18; TEMP 36.4; O2SAT 97
--- NOTE | 2020-11-23 11:03 | MHC.CM.NN ---
PT CLEARED TO DC HOME TODAY WITH VISITING NURSE AND HOME PHYSICAL THERAPY SERVICES TO BE PROVIDED BY [facility]. FAMILY TO TRANSPORT
[2020-11-23 11:23] LABS: Glucose, Whole Blood 370 mg/dL (60-115)
== END 2020-11-23 12:44 | disposition home health service (06) | DRG 65 ==
LOC: HO.ED 15:38 → HO.EDOVER 17:10 → HO.IMC 11-22 05:52
PROVIDERS: Family Medicine; Physician Assistant Medical; Admitting Provider Nurse Practitioner Acute Care; Emergency Provider Emergency Medicine Emergency Medical Services; PCP Internal Medicine; Visit Provider Internal Medicine
DX: I63.81 Other cerebral infarction due to occlusion or stenosis of small artery (principal); G81.94 Hemiplegia, unspecified affecting left nondominant side; E78.5 Hyperlipidemia, unspecified; R42 Dizziness and giddiness; R29.702 NIHSS score 2; I16.0 Hypertensive urgency; F32.9 Major depressive disorder, single episode, unspecified; I10 Essential (primary) hypertension; E11.9 Type 2 diabetes mellitus without complications; R20.0 Anesthesia of skin; Z88.5 Allergy status to narcotic agent; Z88.6 Allergy status to analgesic agent; Z79.4 Long term (current) use of insulin; Z79.82 Long term (current) use of aspirin; Z79.899 Other long term (current) drug therapy
CPT/HCPCS: 0241U; 36415; 70450; 70496; 70498; 70551; 71045; 80048; 80053; 80061; 82550; 82947; 83735; 84443; 84484; 85025; 85610; 85730; 92610; 93005; 93306; 97110; 97162; 97166; 99285; 99291; Q9957; Q9967

== ENCOUNTER 2021-06-01 16:54 | Emergency (ER) | payer OTHER, SELFPAY ==
--- NOTE | 2021-06-01 | ECG_ITS ---
Test Reason : hypertension Blood Pressure : / mmHG Vent. Rate : 090 BPM Atrial Rate : 090 BPM P-R Int : 138 ms QRS Dur : 078 ms QT Int : 378 ms P-R-T Axes : 036 -03 -01 degrees QTc Int : 462 ms Normal sinus rhythm Minimal voltage criteria for LVH, may be normal variant ( R in aVL ) Borderline ECG When compared with ECG of 21-NOV-2020 12:51, No significant change was found Referred By: Generic ED Physician Electronically Signed By:NILTON MCDUFFIE MD
--- NOTE | ~2021-06-01 | CT_ITS ---
EXAMINATION: CT HEAD WITHOUT CONTRAST CLINICAL INFORMATION: Left-sided facial numbness. Headache. COMPARISON: CT head 11/21/2020. MRI of brain 11/21/2020 TECHNIQUE: Contiguous axial imaging was performed from the skull base to vertex without intravenous administration of contrast. Coronal and sagittal reformatted images are performed at the CT scanner. [This CT examination was performed using dose optimization techniques as appropriate, variously including the following: *Automated exposure control *Adjustment of mA and/or kV according to patient size (this includes techniques or standardized protocols for targeted exams where dose is matched to indication/reason for exam; i.e. extremities or head) *Use of iterative reconstruction technique] DLP: 640 mGy-cm. FINDINGS: There is a small vague area of low attenuation in the LEFT thalamus new since prior study 11/21/2020. Axial image 146/235 series 5. Concerning for infarct. This can be further assessed with MRI. (An acute lacunar infarct is present in the RIGHT thalamus on the MR study of 11/21/2020.) No mass effect. No intracranial hemorrhage. No extra-axial collection. There is generalized global volume loss. There is mild prominence of the ventricles and the sulci . There is mild hypodensity of the periventricular white matter due to chronic small vessel ischemic disease. There are vascular calcifications of the internal carotid arteries bilaterally. There is no osseous abnormality. The mastoid air cells and visualized portions of the paranasal sinuses are well-aerated. CT/CT head/brain wo con IMPRESSION: Small age-indeterminate lacunar infarct in the left basal ganglia new since prior studies of November 2020. MRI may be helpful for further evaluation.
[2021-06-01 17:17] VITALS: BP 212/100; PULSE 99; RESP 16; O2SAT 99; BMI 30.7
[2021-06-01 17:48] LABS: MANUAL DIFF FLAG NO
[2021-06-01 17:53] LABS: Basophils Percent Auto 0.3 % (0-2); Eosinophils Absolute Auto 0.2 X10*3/uL (0.0-0.4); Eosinophils Percent Auto 1.8 % (0-4); Hematocrit 38.3 % (37.0-47.0); Hemoglobin 12.8 g/dl (12.0-16.0); Imm Gran Abs Auto 0.04 X10*3/uL (0.00-0.03); Imm Gran Pct Auto 0.4 % (0.0-0.4); Lymphocytes Absolute Auto 2.6 X10*3/uL (1.2-4.9); Lymphocytes Percent Auto 26.9 % (20-40); Mean Corpuscular HGB Conc 33.4 g/dl (31.0-35.0); Mean Corpuscular Hemoglobin 28.5 pg (27.0-33.0); Mean Corpuscular Volume 85.3 fL (80.0-98.0); Mean Platelet Volume 8.8 fL (9.4-12.3); Monocytes Absolute Auto 0.5 X10*3/uL (0.1-1.2); Monocytes Percent Auto 5.5 % (2-11); Neutrophils Absolute Auto 6.2 x10*3/uL (2.0-8.3); Neutrophils Percent Auto 65.1 % (45-73); Platelet Count 448 X10*3/uL (160-400); Red Blood Count 4.49 X10*6/uL (4.20-5.50); Red Cell Distribution Width 11.9 % (11.0-16.0); White Blood Count 9.5 X10*3/uL (4.8-10.8)
[2021-06-01 18:05] LABS: D Dimer High Sensitivity 260 NG/ML
[2021-06-01 18:06] LABS: Anion Gap 12 (12-20); Blood Urea Nitrogen 8 mg/dL (9-16); Calcium 9.1 mg/dL (8.4-10.2); Carbon Dioxide 27 mmol/L (22-29); Chloride 103 mmol/L (96-108); Creatinine Clr Calc Pharmacy 58.6; Estimated Glomerular Filt Rate > 60; Glucose Random 248 mg/dL (60-115); Sodium 138 mmol/L (135-145)
[2021-06-01 18:14] LABS: Troponin-I High Sensitivity < 3.5 ng/L (<3.5-17.0)
--- NOTE | 2021-06-01 20:27 | ED.GENADULT ---
HPI - General Adult General Chief complaint: Recheck/Abnormal Lab/Rx Stated complaint: sent from dr's office high bp Time Seen by Provider: 06/01/21 19:56 Source: patient Mode of arrival: ambulatory Limitations: no limitations History of Present Illness HPI narrative: 60-year-old female who presents emergency department for evaluation of headache, left facial numbness, elevated blood pressures an elevated glucose. The patient states that over the last week her systolic blood pressures have been elevated ranging from 170-180 and her diastolic blood pressures have been elevated ranging from 95-100. She also states that her sugar has been out of control and has been ranging in the 300-400 range. She states that she has been experiencing numbness on the left side of her face for the past 3 days. She states that this is constant. She states that over the past week she has been feeling off balance and has been feeling dizzy and lightheaded. She is complaining of intermittent left-sided headaches over the last 5 days. She states that the headache is a pressure-like sensation which seems to be worse at night and is relieved by Tylenol. She denied chest pain, shortness of breath or dyspnea on exertion. She states she has been feeling anxious. The patient saw the nurse practitioner and her providers office today and was told that she had an elevated hemoglobin A1c of 10. The nurse practitioner noted that the patient was on losartan and lisinopril and advised the patient to stop the lisinopril. The nurse practitioner was going to start the patient on hydrochlorothiazide as well. The patient was sent to the hospital by the nurse practitioner to get an EKG however the outpatient lab was closed with the patient came to the emergency department and asked to be evaluated in the emergency department. The patient does have a history of hypertension and diabetes. She also had a right thalamic stroke 11/21/2020. Related Data Home Medications Medication Instructions Recorded Confirmed blood sugar diagnostic 11/12/20 06/01/21 bupropion HCl 300 mg 24 hr tablet, 300 mg PO DAILY 11/12/20 06/01/21 extended release fluoxetine 20 mg capsule 20 mg PO DAILY 11/12/20 06/01/21 lorazepam 0.5 mg tablet 0.5 mg PO PRN 11/12/20 06/01/21 zolpidem 10 mg tablet 10 mg PO BEDTIME 11/12/20 06/01/21 Previous Rx's Medication Instructions Recorded alcohol swabs (Alcohol Pads) 1 pad TOPICAL DAILY 30 Days ea 11/23/20 BLOOD PRESSURE MONITOR #1 ea 11/26/20 atorvastatin 80 mg tablet 80 mg PO BEDTIME #30 tab 12/23/20 pen needle, diabetic 31 gauge x #100 ea 12/23/20 1/ (Pen Needle) glimepiride 4 mg tablet 4 mg PO QAM #30 tab 03/07/21 losartan 100 mg tablet 100 mg PO DAILY #30 tab 03/07/21 gabapentin 400 mg capsule 400 mg PO TID #90 cap 05/04/21 aspirin 81 mg chewable tablet 81 mg PO DAILY #30 tab 05/10/21 dulaglutide 0.75 mg/0.5 mL 0.75 mg (0.5 mL) SUBCUT QWEEK #2 ml 05/10/21 subcutaneous pen injector (Trulicity) potassium chloride 10 mEq 10 meq PO QID #120 tab 05/10/21 tablet,extended release(part/cryst) Lantus Solostar U-100 Insulin 100 14 unit (0.14 mL) SUBCUT QPM #3 ml 06/01/21 unit/mL (3 mL) subcutaneous pen NS (insulin glargine) hydrochlorothiazide 12.5 mg tablet 12.5 mg PO DAILY #30 tab 06/01/21 hydrochlorothiazide 12.5 mg tablet 12.5 mg PO DAILY 30 Days #30 tab 06/01/21 lancets (OneTouch UltraSoft #200 ea 06/01/21 Lancets) Allergies Allergy/AdvReac Type Severity Reaction Status Date / Time ibuprofen [From Motrin] Allergy Mild STOMACH Verified 06/01/21 15:56 UPSET oxycodone [From Percocet] Allergy Mild ITCHING Verified 06/01/21 15:56 lactose [LACTOSE] Allergy Unknown ABD PAIN Verified 06/01/21 15:56 metformin AdvReac Unknown nausea, Verified 06/01/21 15:56 somnolence Review of Systems Review of Systems: Yes all other systems are reviewed and are negative [facility] Past Medical History Medical History Anemia, iron deficiency Anxiety Benign essential hypertension Depression Diabetes mellitus Fibromyalgia GERD without esophagitis Insomnia Lumbar degenerative disc disease Obesity (BMI 30-39.9) Pure hypercholesterolemia Right thalamic stroke Sciatic pain Surgical History H/O bilateral breast reduction surgery History of appendectomy History of carpal tunnel release History of section History of hysterectomy History of left salpingo-oophorectomy Family History Family History Father Suicide Epilepsy Mother Poor high blood pressure control Diabetes Hypertension Daughter Spina bifida Brother Stroke Other Mental health problem Social History Social History Household Members: Significant Other Housing: Apartment Do you presently have visiting nurse or other home services: No Alcohol intake: never Patient Tobacco Use Status: Never used Tobacco e-Cigarette/Vaping Use: Never Used Second Hand Smoke Exposure: Yes Advance Directives: No service: No Current occupational status: disabled Physical Exam ED Vital Signs: Vital Signs - 24 hr 06/01/21 17:17 06/01/21 20:40 Temperature 98.2 F Pulse Rate 99 88 Respiratory Rate 16 16 Blood Pressure 212/100 H 190/96 H Pulse Oximetry 99 98 BMI result Body Mass Index 30.7 Const General: cooperative and no acute distress Orientation/consciousness: oriented to person and oriented to place Limitations: no limitations HENMT Head: Yes normal to inspection, Yes normocephalic and Yes atraumatic Ears: external ears normal General nose exam: Normal external nose present Face and sinus: Yes normal facial exam Mouth: Normal oral and palatal mucosa present Throat: Yes posterior oropharynx normal Eyes General: appearance normal, both eyes and all related structures Pupils: Equal, round and reactive pupils present Neck Neck: Yes normal visual inspection, Yes no lymphadenopathy, Yes trachea midline and Yes supple Chest Chest palpation & inspection: normal inspection of the chest and normal palpation of entire chest wall Resp Effort & Inspection: normal respiratory effort and able to speak in complete sentences Auscultation: clear to auscultation bilaterally Cardio Rate: regular rate Rhythm: regular rhythm Heart sounds: S1 normal heart sound present, S2 normal heart sound present and no murmurs GI Inspection: Yes normal to inspection Palpation (GI): Soft to palpation, nontender and no guarding Auscultation: normal bowel sounds General: Yes no CVA tenderness Back/Spine/Pelvis Back: no CVA tenderness Skin General skin exam: no rashes or lesions noted Neuro General: oriented to person and oriented to place Cranial nerves: Yes CN's II-XII intact bilaterally and Yes Equal, round and reactive pupils present Cognition (Neuro): normal cognition Motor exam (neuro): 5/5 motor strength present throughout Coordination: [id number] test normal and [id number] test normal Extrem General: Yes normal to inspection Psych Appearance: grossly normal Speech and movement: Normal speech and movement present Affect: normal affect Attitude: cooperative Thought process: Normal thought process present Thought content: Normal thought content present Course Course Course Narrative: 60-year-old female who was seen by her nurse practitioner today for elevated blood pressures, elevated glucose I was told that she had an elevated hemoglobin A1c. Patient was sent to the outpatient lab to get an EKG with his lab was was in emergency department for evaluation. Patient states that her blood pressures have been elevated for 1 week and her glucose was a been out of control for several weeks. She also noted numbness the left side of her face, being off balance and headaches for the past week. Vital signs revealed an elevated blood pressure of 212/100 otherwise were unremarkable. Patient's examination was unremarkable with a normal neurologic and when cerebellar exam. Laboratory evaluation revealed today revealed a normal CBC except for slight elevation and her platelet count of 448. Patient's glucose was elevated at 248. Troponin was below detectable limits. D-dimer was elevated at . Twelve EKG was unremarkable. Given her headache and facial numbness I did order a CT scan of the brain to rule out stroke. Patient does have an elevated D-dimer but she does not have any chest pain or shortness of breath and I do not think that she has had a PE. 2146: CT scan of the brain without contrast revealed the following: Small age-indeterminate lacunar infarct in the left basal ganglia new since prior studies of November 2020. MRI may be helpful for further evaluation. I do not think that this is the cause the patient's symptoms since her symptoms are on the left side of her face and not the right side. I did discuss this with the patient. The patient will be discharged home. She was advised to work with her provider get her blood pressure under control and to control glucose and this will reduce her risk of further strokes. Patient understood this discussion was discharged home. Medical Decision Making Lab Data Result diagrams: 06/01/21 17:44 06/01/21 17:44 Labs: Lab Results 06/01/21 06/01/21 06/01/21 Range/Units 17:44 17:44 17:44 WBC 9.5 (4.8-10.8) X10*3/uL RBC 4.49 (4.20-5.50) X10*6/uL Hgb 12.8 (12.0-16.0) g/dl Hct 38.3 (37.0-47.0) % MCV 85.3 (80.0-98.0) fL MCH 28.5 (27.0-33.0) pg MCHC 33.4 (31.0-35.0) g/dl RDW 11.9 (11.0-16.0) % Plt Count 448 H (160-400) X10*3/uL MPV 8.8 L (9.4-12.3) fL Immature Gran % (Auto) 0.4 (0.0-0.4) % Neut % (Auto) 65.1 (45-73) % Lymph % (Auto) 26.9 (20-40) % [place] % (Auto) 5.5 (2-11) % Eos % (Auto) 1.8 (0-4) % Baso % (Auto) 0.3 (0-2) % Lymph # (Auto) 2.6 (1.2-4.9) X10*3/uL [place] # (Auto) 0.5 (0.1-1.2) X10*3/uL Eos # (Auto) 0.2 (0.0-0.4) X10*3/uL Baso # (Auto) 0.0 (0.0-0.2) X10*3/uL Abs Immat Gran (auto) 0.04 H (0.00-0.03) X10*3/uL Absolute Neuts (auto) 6.2 (2.0-8.3) x10*3/uL Absolute Nucleated RBC 0.000 (0.0-0.012) X10*3/uL Nucleated RBC % (auto) 0.0 (0.0-0.2) /100WBC D-Dimer High Sensitivty 260 NG/ML Sodium 138 (135-145) mmol/L Potassium 4.0 (3.3-5.1) mmol/L Chloride 103 (96-108) mmol/L Carbon Dioxide 27 (22-29) mmol/L Anion Gap 12 (12-20) BUN 8 L (9-16) mg/dL Creatinine 0.91 (0.5-1.4) mg/dL Estim Creat Clear Calc 58.6 Estimated GFR > 60 Random Glucose 248 H (60-115) mg/dL Calcium 9.1 D (8.4-10.2) mg/dL Troponin I High Sens (<3.5-17.0) ng/L Urine Color Urine Appearance Urine pH (5.0-8.0) Ur Specific [place] (1.005-1.025) Urine Protein (NEG-TRACE) MG/DL Urine Glucose (UA) (NEG) MG/DL Urine Ketones (NEG) MG/DL Urine Blood (NEG) Urine Nitrite (NEG) Ur Leukocyte Esterase (NEG) Urine RBC (0) /HPF Urine WBC (0-4) /HPF Ur Squamous Epith Cells /LPF Urine Bacteria /LPF Urine Mucus /LPF 06/01/21 06/01/21 Range/Units 17:44 21:22 WBC (4.8-10.8) X10*3/uL RBC (4.20-5.50) X10*6/uL Hgb (12.0-16.0) g/dl Hct (37.0-47.0) % MCV (80.0-98.0) fL MCH (27.0-33.0) pg MCHC (31.0-35.0) g/dl RDW (11.0-16.0) % Plt Count (160-400) X10*3/uL MPV (9.4-12.3) fL Immature Gran % (Auto) (0.0-0.4) % Neut % (Auto) (45-73) % Lymph % (Auto) (20-40) % [place] % (Auto) (2-11) % Eos % (Auto) (0-4) % Baso % (Auto) (0-2) % Lymph # (Auto) (1.2-4.9) X10*3/uL [place] # (Auto) (0.1-1.2) X10*3/uL Eos # (Auto) (0.0-0.4) X10*3/uL Baso # (Auto) (0.0-0.2) X10*3/uL Abs Immat Gran (auto) (0.00-0.03) X10*3/uL Absolute Neuts (auto) (2.0-8.3) x10*3/uL Absolute Nucleated RBC (0.0-0.012) X10*3/uL Nucleated RBC % (auto) (0.0-0.2) /100WBC D-Dimer High Sensitivty NG/ML Sodium (135-145) mmol/L Potassium (3.3-5.1) mmol/L Chloride (96-108) mmol/L Carbon Dioxide (22-29) mmol/L Anion Gap (12-20) BUN (9-16) mg/dL Creatinine (0.5-1.4) mg/dL Estim Creat Clear Calc Estimated GFR Random Glucose (60-115) mg/dL Calcium (8.4-10.2) mg/dL Troponin I High Sens < 3.5 (<3.5-17.0) ng/L Urine Color YELLOW Urine Appearance CLEAR Urine pH 6.5 (5.0-8.0) Ur Specific [place] <= 1.005 (1.005-1.025) Urine Protein NEG (NEG-TRACE) MG/DL Urine Glucose (UA) >=1000 H (NEG) MG/DL Urine Ketones NEG (NEG) MG/DL Urine Blood NEG (NEG) Urine Nitrite NEG (NEG) Ur Leukocyte Esterase NEG (NEG) Urine RBC 0-2 (0) /HPF Urine WBC 0-2 (0-4) /HPF Ur Squamous Epith Cells TRACE /LPF Urine Bacteria NONE /LPF Urine Mucus 1+ /LPF Discharge Plan Discharge Clinical Impression: Left facial numbness, Hypertension, High glucose Additional Instructions: Your blood work was unremarkable except for an elevated glucose of 248. Your 12 EKG was normal. Your troponin was below detectable limits suggesting the did not have a heart attack. The CT scan of your brain revealed a possible new stroke on the left side of your brain compared to the MRI that was done in November of 2020. However, I do not think this is the cause of your symptoms since a left-sided stroke should cause right-sided symptoms and your numbness is on the left side of your face. You need to continue to work with your providers to get your blood pressure under control and to get your sugar/glucose under control. Take the hydrochlorothiazide as prescribed by your provider continue to take your losartan. Check blood pressure once a day in the morning and write this down and discuss these readings with your doctor at your next visit. Please return to the emergency department if your symptoms get worse or if you develop any symptoms that are concerning to you. Prescriptions: New hydrochlorothiazide 12.5 mg tablet 12.5 mg PO DAILY 30 Days Qty: 30 0RF No Action atorvastatin 80 mg tablet 80 mg PO BEDTIME Qty: 30 3RF (DME) pen needle, diabetic [Pen Needle] 31 gauge x 1/4 needle See Rx Instructions .Route Qty: 100 3RF Rx Instructions: As directed daily losartan 100 mg tablet 100 mg PO DAILY Qty: 30 3RF glimepiride 4 mg tablet 4 mg PO QAM Qty: 30 3RF gabapentin 400 mg capsule 400 mg PO TID Qty: 90 3RF aspirin 81 mg tablet,chewable 81 mg PO DAILY Qty: 30 3RF Trulicity 0.75 mg/0.5 mL pen injector 0.75 mg subcut QWEEK Qty: 2 3RF potassium chloride 10 mEq tablet,ER particles/crystals 10 meq PO QID Qty: 120 0RF alcohol swabs [Alcohol Pads] Pads, Medicated 1 pad topical DAILY 30 Days 0RF bupropion HCl 300 mg tablet extended release 24 hr 300 mg PO DAILY 0RF fluoxetine 20 mg capsule 20 mg PO DAILY 0RF zolpidem 10 mg tablet 10 mg PO BEDTIME 0RF lorazepam 0.5 mg tablet 0.5 mg PO PRN (Reason: Anxiety) 0RF (DME) blood sugar diagnostic Strip See Rx Instructions .Route 0RF Rx Instructions: As directed- 3 times daily (DME) BLOOD PRESSURE MONITOR See Rx Instructions .Route .MEDSUPPLY Qty: 1 0RF Rx Instructions: As directed hydrochlorothiazide 12.5 mg tablet 12.5 mg PO DAILY Qty: 30 0RF Lantus Solostar U-100 Insulin 100 unit/mL (3 mL) insulin pen 14 unit subcut QPM Qty: 3 3RF (DME) lancets [OneTouch UltraSoft Lancets] Misc See Rx Instructions .Route Qty: 200 0RF Rx Instructions: As directed
--- NOTE | 2021-06-01 20:38 | PC.NURSE ---
BP 190/96 (Toribio) notified pt off to CT
[2021-06-01 20:40] VITALS: BP 190/96; PULSE 88; RESP 16; TEMP 36.8; O2SAT 98
--- NOTE | 2021-06-01 20:49 | PC.NURSE ---
pt back from CT
--- NOTE | 2021-06-01 21:06 | PC.NURSE ---
(Toribio) aware of BP no new orders at this time
[2021-06-01 21:29] LABS: Appearance Urine CLEAR; Color Urine YELLOW; Glucose Urine UA >=1000 MG/DL (NEG); Leukocyte Esterase Urine NEG (NEG); Nitrite Urine NEG (NEG); PH 6.5 (5.0-8.0); Specific Gravity - Urine <= 1.005 (1.005-1.025); Urine Blood NEG (NEG); Urine Ketones NEG (NEG); Urine Protein NEG (NEG-TRACE)
[2021-06-01 21:38] LABS: RBC Urine 0-2 /HPF (0); Squamous Epithelial Cell Urine TRACE /LPF; WBC Urine 0-2 /HPF (0-4)
[2021-06-01 21:39] LABS: Mucus Urine 1+ /LPF
[2021-06-01 21:59] VITALS: BP 197/104; PULSE 88; RESP 16; TEMP 36.9; O2SAT 98
== END 2021-06-01 22:04 | disposition home or self-care (01) ==
PROVIDERS: Emergency Provider Emergency Medicine Emergency Medical Services
DX: R20.0 Anesthesia of skin (principal); I10 Essential (primary) hypertension; E11.9 Type 2 diabetes mellitus without complications; Z79.4 Long term (current) use of insulin; Z79.82 Long term (current) use of aspirin; Z79.02 Long term (current) use of antithrombotics/antiplatelets; Z86.73 Personal history of transient ischemic attack (TIA), and cerebral infarction without residual deficits
CPT/HCPCS: 36415; 70450; 80048; 81001; 84484; 85025; 85379; 93005; 99284

== ENCOUNTER 2021-06-05 17:35 | Inpatient (IN) | payer OTHER, SELFPAY ==
--- NOTE | ~2021-06-05 | CT_ITS ---
EXAMINATION: CT HEAD WITHOUT CONTRAST CT ANGIOGRAM HEAD AND NECK CLINICAL INFORMATION: Intermittent right-sided motor difficulties. COMPARISON: 06/01/2021 TECHNIQUE: Unenhanced CT examination of the head was performed initially. Test bolus sequences followed by intravenous administration 100 mL of Omnipaque 300 intravenous contrast. Helical imaging was performed in the axial plane from the mediastinum to the skull vertex. Delayed postcontrast imaging of the head was also performed. The data was processed at the cardiovascular technologist's workstation for generation of MIP sequences. Three-dimensional volume rendered reformatted images were also generated at an offline 3-D workstation. This CT examination was performed using dose optimization techniques as appropriate, variously including the following: *Automated exposure control *Adjustment of mA and/or kV according to patient size (this includes techniques or standardized protocols for targeted exams where dose is matched to indication/reason for exam; i.e. extremities or head) *Use of iterative reconstruction technique The degree of stenosis determined by NASCET criteria. DLP: 2196 mGy-cm FINDINGS: SOFT TISSUES AND LUNG APICES: No overt abnormality is appreciated. CTA NECK: The aortic arch has a classic configuration and the major arch vessel origins are non-stenotic. The vertebral arteries are co-dominant and both vertebral origins are widely patent. Both common carotid arteries are normal in course and caliber. Both internal carotid arteries demonstrate mild soft noncalcified atherosclerotic plaque without significant stenosis. CTA HEAD: No acute large vessel occlusion. There are multifocal stenoses of the left P2 segment with high-grade focal stenosis of the distal left P2 and proximal P3 segments. Distally, the left posterior cerebral artery is widely patent. origin of the right posterior cerebral artery. 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 There is high-grade focal stenosis within the mid basilar artery. Calcific atherosclerotic plaque of the bilateral cavernous carotid arteries with mild focal stenosis within the anterior left cavernous carotid artery. The bilateral MCA complexes and branches are widely patent. Anterior cerebral arteries are widely patent. HEAD (noncontrast and delayed): Interval slight decrease in conspicuity of a left thalamic infarct extending into the tobi cerebri. Delayed images demonstrate enhancement within the same area. Findings suggest evolving subacute infarct. Mild patchy subcortical and periventricular white matter low-attenuation changes compatible with chronic white matter small vessel ischemic disease. Ventricular system normal in size and configuration. No intracranial hemorrhage or mass. No herniation pattern. Dural sinuses are patent. Secretions present throughout the left maxillary sinus. Remainder of the paranasal sinuses are clear. CT/CT head/brain wo con IMPRESSION: * Evolving subacute infarct within the left thalamus as evidenced by decreased in conspicuity on the unenhanced images compatible with fogging effect , and associated enhancement during the delayed phase. * Multifocal stenoses of the left P2 and proximal P3 segments, the latter being a high-grade. Left thalamoperforators originate from the segments of the posterior cerebral artery. 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 * Mild focal stenosis at the origins of the proximal extracranial internal carotid arteries.
[2021-06-05 17:42] VITALS: BP 244/115; PULSE 113; RESP 20; TEMP 36.7; O2SAT 99; BMI 31.3
[2021-06-05] MEDS: Acetaminophen 325 MG TABLET 650 MG PO (18:53)
[2021-06-05 20:50] LABS: MANUAL DIFF FLAG NO
[2021-06-05 20:58] LABS: Basophils Percent Auto 0.3 % (0-2); Eosinophils Absolute Auto 0.1 X10*3/uL (0.0-0.4); Eosinophils Percent Auto 0.8 % (0-4); Hematocrit 40.2 % (37.0-47.0); Hemoglobin 13.3 g/dl (12.0-16.0); Imm Gran Abs Auto 0.04 X10*3/uL (0.00-0.03); Imm Gran Pct Auto 0.3 % (0.0-0.4); Lymphocytes Absolute Auto 3.1 X10*3/uL (1.2-4.9); Mean Corpuscular HGB Conc 33.1 g/dl (31.0-35.0); Mean Corpuscular Hemoglobin 28.7 pg (27.0-33.0); Mean Corpuscular Volume 86.6 fL (80.0-98.0); Mean Platelet Volume 8.9 fL (9.4-12.3); Monocytes Absolute Auto 0.8 X10*3/uL (0.1-1.2); Neutrophils Absolute Auto 7.7 x10*3/uL (2.0-8.3); Neutrophils Percent Auto 65.6 % (45-73); Platelet Count 520 X10*3/uL (160-400); Red Blood Count 4.64 X10*6/uL (4.20-5.50); Red Cell Distribution Width 12.1 % (11.0-16.0); White Blood Count 11.8 X10*3/uL (4.8-10.8)
[2021-06-05 21:07] LABS: Anion Gap 13 (12-20); Blood Urea Nitrogen 11 mg/dL (9-16); Calcium 9.7 mg/dL (8.4-10.2); Carbon Dioxide 31 mmol/L (22-29); Chloride 101 mmol/L (96-108); Creatinine Clr Calc Pharmacy 52.7; Estimated Glomerular Filt Rate 58; Glucose Random 181 mg/dL (60-115); Sodium 141 mmol/L (135-145)
[2021-06-05 21:38] VITALS: BP 210/102; PULSE 94; RESP 20; TEMP 36.1; O2SAT 99
[2021-06-05 23:18] VITALS: BP 201/93; PULSE 86; RESP 16; O2SAT 98
[2021-06-06] VITALS (9 sets, daily range): BP systolic 149–201; BP diastolic 75–100; PULSE 85–97; RESP 13–20; TEMP 36.6–36.7; O2SAT 97–99
[2021-06-06 02:55] LABS: Appearance Urine CLEAR; Color Urine YELLOW; Glucose Urine UA 500 MG/DL (NEG); Leukocyte Esterase Urine NEG (NEG); Nitrite Urine NEG (NEG); PH 6.5 (5.0-8.0); Specific Gravity - Urine 1.025 (1.005-1.025); Urine Blood NEG (NEG); Urine Ketones NEG (NEG); Urine Protein 1+ MG/DL (NEG-TRACE)
[2021-06-06 03:00] LABS: WBC Urine 0-2 /HPF (0-4)
[2021-06-06 03:01] LABS: Granular Casts Urine 0-2 /LPF; Mucus Urine 1+ /LPF; RBC Urine 0-2 /HPF (0); Squamous Epithelial Cell Urine 2+ /LPF
--- NOTE | 2021-06-06 03:15 | ED.GENADULT ---
HPI - General Adult General Chief complaint: General Medical Stated complaint: High Bp Time Seen by Provider: 06/06/21 03:15 Source: patient Mode of arrival: ambulatory History of Present Illness HPI narrative: 60-year-old female with history of diabetes, hypertension, right thalamic stroke, depression presents with 1 week of elevated blood pressures and had an appointment with her primary care provider but missed the appointment because she was ?too tired?. In addition, patient noted that over the week she has been having intermittent issues with her right leg not ?working right?. Patient describes that her right leg does not seem to want to follow what she wanted to do all the time. Patient noted that her blood pressure was significantly higher this evening at over 200 and that is what brought her into the emergency room to include feeling a left-sided headache with some ?fullness?. In addition, patient describes chest pressure. Patient's headache has somewhat resolved and she states she did not inform anyone in the waiting area of any of her neurologic symptoms. Related Data Home Medications Medication Instructions Recorded Confirmed blood sugar diagnostic 11/12/20 06/01/21 bupropion HCl 300 mg 24 hr tablet, 300 mg PO DAILY 11/12/20 06/01/21 extended release fluoxetine 20 mg capsule 20 mg PO DAILY 11/12/20 06/01/21 lorazepam 0.5 mg tablet 0.5 mg PO PRN 11/12/20 06/01/21 zolpidem 10 mg tablet 10 mg PO BEDTIME 11/12/20 06/01/21 Previous Rx's Medication Instructions Recorded alcohol swabs (Alcohol Pads) 1 pad TOPICAL DAILY 30 Days ea 11/23/20 BLOOD PRESSURE MONITOR #1 ea 11/26/20 pen needle, diabetic 31 gauge x #100 ea 12/23/20 1/ (Pen Needle) glimepiride 4 mg tablet 4 mg PO QAM #30 tab 03/07/21 losartan 100 mg tablet 100 mg PO DAILY #30 tab 03/07/21 gabapentin 400 mg capsule 400 mg PO TID #90 cap 05/04/21 aspirin 81 mg chewable tablet 81 mg PO DAILY #30 tab 05/10/21 dulaglutide 0.75 mg/0.5 mL 0.75 mg (0.5 mL) SUBCUT QWEEK #2 ml 05/10/21 [facility] potassium chloride 10 mEq 10 meq PO QID #120 tab 05/10/21 tablet,extended release(part/cryst) Lantus Solostar U-100 Insulin 100 14 unit (0.14 mL) SUBCUT QPM #3 ml 06/01/21 unit/mL (3 mL) subcutaneous pen NS (insulin glargine) atorvastatin 80 mg tablet 80 mg PO BEDTIME #30 tab 06/02/21 hydrochlorothiazide 12.5 mg tablet 12.5 mg PO DAILY #30 tab 06/02/21 lancets (OneTouch UltraSoft #200 ea 06/02/21 Lancets) Allergies Allergy/AdvReac Type Severity Reaction Status Date / Time ibuprofen [From Motrin] Allergy Mild STOMACH Verified 06/06/21 02:43 UPSET oxycodone [From Percocet] Allergy Mild ITCHING Verified 06/06/21 02:43 lactose [LACTOSE] Allergy Unknown ABD PAIN Verified 06/06/21 02:43 metformin AdvReac Unknown nausea, Verified 06/06/21 02:43 somnolence Review of Systems Review of Systems: Pertinent positives and negatives as stated in HPI 10 point review of systems is otherwise negative. [facility], LAT[facility] Past Medical History Source: nursing notes reviewed Medical History Anemia, iron deficiency Anxiety Benign essential hypertension Depression Diabetes mellitus Fibromyalgia GERD without esophagitis Insomnia Lumbar degenerative disc disease Obesity (BMI 30-39.9) Pure hypercholesterolemia Right thalamic stroke Sciatic pain Surgical History H/O bilateral breast reduction surgery History of appendectomy History of carpal tunnel release History of section History of hysterectomy History of left salpingo-oophorectomy Family History Family History Father Suicide Epilepsy Mother Poor high blood pressure control Diabetes Hypertension Daughter Spina bifida Brother Stroke Other Mental health problem Social History Social History Household Members: Significant Other Housing: Apartment Do you presently have visiting nurse or other home services: No Alcohol intake: never Patient Tobacco Use Status: Never used Tobacco e-Cigarette/Vaping Use: Never Used Second Hand Smoke Exposure: Yes Advance Directives: No service: No Current occupational status: disabled Physical Exam ED Vital Signs: Vital Signs - 24 hr 06/05/21 17:42 06/05/21 21:38 06/05/21 23:18 Temperature 98.0 F 97.0 F Pulse Rate 113 H 94 86 Respiratory Rate 20 20 16 Blood Pressure 244/115 H 210/102 H 201/93 H Pulse Oximetry 99 99 98 06/06/21 02:27 06/06/21 02:43 06/06/21 04:28 Temperature 97.8 F 98.1 F Pulse Rate 91 91 85 Respiratory Rate 18 15 13 Blood Pressure 201/100 H 189/92 H 149/77 H Pulse Oximetry 98 98 99 BMI result Body Mass Index 31.3 VITAL SIGNS: Reviewed. GENERAL: Well developed, well nourished, in no acute distress. HEAD: Normocephalic/atraumatic EYES: PERRLA, EOMI EARS: Ext canals without abnormality NOSE: Nares patent bilateral OROPHARYNX: no oral lesions noted, posterior pharynx clear LUNGS: Normal breath sounds. No adventitious sounds or accessory muscle use. SpO2<99> CARDIOVASCULAR: Regular rate and rhythm without noted murmurs, no JVD or lower extremity edema. ABDOMEN: Soft, non-tender, non-distended with bowel sounds. MUSCULOSKELETAL: No tenderness, deformities, or effusions noted on gross inspection. EXTREMITIES: No cyanosis, clubbing or edema. SKIN: Inspection of the skin reveals no rashes NEUROLOGIC: Alert and oriented x 4. Strength and sensation to light touch were grossly intact x 4, no facial asymmetry, no pronator drift, cranial nerves 2-12 are grossly intact, cerebellar testing is within normal limits. NIH Stroke Scale Time: 03:10 Level of Consciousness: Alert Level of Consciousness Questions: Answers both questions correctly Level of Consciousness Commands: Performs both tasks correctly Best Gaze: Normal Visual: No visual loss Facial Palsy: Normal Motor Arm (Right): No drift Motor Arm (Left): No drift Motor Leg (Right): No drift Motor Leg (Left): No drift Limb Ataxia: Absent Sensory: Mild to moderate sensory loss Best Language: No aphasia Dysarthia: Normal Extinction and Inattention: No abnormality Score: 1 Course Course Course Narrative: 60-year-old female with history and clinical presentation of hypertensive urgency and subacute fluctuating neurologic symptoms. Patient is currently non focal, and her headache has improved with Tylenol, however suspect that her intermittent right-sided symptoms may be associated with her blood pressure fluctuations. On re-evaluation patient's blood pressure has resolved and she did not require the labetalol. Immediate imaging was ordered and unfortunately demonstrates ?evolving subacute infarct within the left thalamus?. This was discussed with Neurology at 05:10 and recommendations were for aspirin and blood pressure control due to subacute. This was discussed with inpatient hospitalist who accepts admission. Medical Decision Making Lab Data Result diagrams: 06/05/21 20:45 06/05/21 20:45 Labs: Lab Results 06/05/21 06/05/21 06/05/21 Range/Units 20:45 20:45 20:45 WBC 11.8 H (4.8-10.8) X10*3/uL RBC 4.64 (4.20-5.50) X10*6/uL Hgb 13.3 (12.0-16.0) g/dl Hct 40.2 (37.0-47.0) % MCV 86.6 (80.0-98.0) fL MCH 28.7 (27.0-33.0) pg MCHC 33.1 (31.0-35.0) g/dl RDW 12.1 (11.0-16.0) % Plt Count 520 H (160-400) X10*3/uL MPV 8.9 L (9.4-12.3) fL Immature Gran % (Auto) 0.3 (0.0-0.4) % Neut % (Auto) 65.6 (45-73) % Lymph % (Auto) 26.0 (20-40) % Dent % (Auto) 7.0 (2-11) % Eos % (Auto) 0.8 (0-4) % Baso % (Auto) 0.3 (0-2) % Lymph # (Auto) 3.1 (1.2-4.9) X10*3/uL Dent # (Auto) 0.8 (0.1-1.2) X10*3/uL Eos # (Auto) 0.1 (0.0-0.4) X10*3/uL Baso # (Auto) 0.0 (0.0-0.2) X10*3/uL Abs Immat Gran (auto) 0.04 H (0.00-0.03) X10*3/uL Absolute Neuts (auto) 7.7 (2.0-8.3) x10*3/uL Absolute Nucleated RBC 0.000 (0.0-0.012) X10*3/uL Nucleated RBC % (auto) 0.0 (0.0-0.2) /100WBC PT (9.9-13.0) SEC INR (0.9-1.1) Sodium 141 (135-145) mmol/L Potassium 4.0 (3.3-5.1) mmol/L Chloride 101 (96-108) mmol/L Carbon Dioxide 31 H (22-29) mmol/L Anion Gap 13 (12-20) BUN 11 (9-16) mg/dL Creatinine 0.98 (0.5-1.4) mg/dL Estim Creat Clear Calc 52.7 Estimated GFR 58 Random Glucose 181 H (60-115) mg/dL Calcium 9.7 D (8.4-10.2) mg/dL Troponin I High Sens < 3.5 (<3.5-17.0) ng/L Urine Color Urine Appearance Urine pH (5.0-8.0) Ur Specific Boswell (1.005-1.025) Urine Protein (NEG-TRACE) MG/DL Urine Glucose (UA) (NEG) MG/DL Urine Ketones (NEG) MG/DL Urine Blood (NEG) Urine Nitrite (NEG) Ur Leukocyte Esterase (NEG) Urine RBC (0) /HPF Urine WBC (0-4) /HPF Ur Squamous Epith Cells /LPF Urine Bacteria /LPF Hyaline Casts /LPF Granular Casts /LPF Urine Mucus /LPF COVID-19 (DEVEN) (Negative) COVID-19 Clin Com 06/06/21 06/06/21 06/06/21 Range/Units 02:47 04:30 04:32 WBC (4.8-10.8) X10*3/uL RBC (4.20-5.50) X10*6/uL Hgb (12.0-16.0) g/dl Hct (37.0-47.0) % MCV (80.0-98.0) fL MCH (27.0-33.0) pg MCHC (31.0-35.0) g/dl RDW (11.0-16.0) % Plt Count (160-400) X10*3/uL MPV (9.4-12.3) fL Immature Gran % (Auto) (0.0-0.4) % Neut % (Auto) (45-73) % Lymph % (Auto) (20-40) % Dent % (Auto) (2-11) % Eos % (Auto) (0-4) % Baso % (Auto) (0-2) % Lymph # (Auto) (1.2-4.9) X10*3/uL Dent # (Auto) (0.1-1.2) X10*3/uL Eos # (Auto) (0.0-0.4) X10*3/uL Baso # (Auto) (0.0-0.2) X10*3/uL Abs Immat Gran (auto) (0.00-0.03) X10*3/uL Absolute Neuts (auto) (2.0-8.3) x10*3/uL Absolute Nucleated RBC (0.0-0.012) X10*3/uL Nucleated RBC % (auto) (0.0-0.2) /100WBC PT 12.7 (9.9-13.0) SEC INR 1.1 (0.9-1.1) Sodium (135-145) mmol/L Potassium (3.3-5.1) mmol/L Chloride (96-108) mmol/L Carbon Dioxide (22-29) mmol/L Anion Gap (12-20) BUN (9-16) mg/dL Creatinine (0.5-1.4) mg/dL Estim Creat Clear Calc Estimated GFR Random Glucose (60-115) mg/dL Calcium (8.4-10.2) mg/dL Troponin I High Sens (<3.5-17.0) ng/L Urine Color YELLOW Urine Appearance CLEAR Urine pH 6.5 (5.0-8.0) Ur Specific Boswell 1.025 (1.005-1.025) Urine Protein 1+ H (NEG-TRACE) MG/DL Urine Glucose (UA) 500 H (NEG) MG/DL Urine Ketones NEG (NEG) MG/DL Urine Blood NEG (NEG) Urine Nitrite NEG (NEG) Ur Leukocyte Esterase NEG (NEG) Urine RBC 0-2 (0) /HPF Urine WBC 0-2 (0-4) /HPF Ur Squamous Epith Cells 2+ /LPF Urine Bacteria NONE /LPF Hyaline Casts 1-4 /LPF Granular Casts 0-2 /LPF Urine Mucus 1+ /LPF COVID-19 (DEVEN) Negative (Negative) COVID-19 Clin Com See Note Discharge Plan Discharge Clinical Impression: HTN (hypertension), Infarction of left thalamus Patient Disposition: Admitted As Inpatient Prescriptions: No Action (DME) pen needle, diabetic [Pen Needle] 31 gauge x 1/4 needle See Rx Instructions .Route Qty: 100 3RF Rx Instructions: As directed daily losartan 100 mg tablet 100 mg PO DAILY Qty: 30 3RF glimepiride 4 mg tablet 4 mg PO QAM Qty: 30 3RF gabapentin 400 mg capsule 400 mg PO TID Qty: 90 3RF aspirin 81 mg tablet,chewable 81 mg PO DAILY Qty: 30 3RF Trulicity 0.75 mg/0.5 mL pen injector 0.75 mg subcut QWEEK Qty: 2 3RF potassium chloride 10 mEq tablet,ER particles/crystals 10 meq PO QID Qty: 120 0RF (DME) lancets [OneTouch UltraSoft Lancets] Misc See Rx Instructions .Route Qty: 200 0RF Rx Instructions: test 3x day hydrochlorothiazide 12.5 mg tablet 12.5 mg PO DAILY Qty: 30 0RF atorvastatin 80 mg tablet 80 mg PO BEDTIME Qty: 30 3RF alcohol swabs [Alcohol Pads] Pads, Medicated 1 pad topical DAILY 30 Days 0RF bupropion HCl 300 mg tablet extended release 24 hr 300 mg PO DAILY 0RF fluoxetine 20 mg capsule 20 mg PO DAILY 0RF zolpidem 10 mg tablet 10 mg PO BEDTIME 0RF lorazepam 0.5 mg tablet 0.5 mg PO PRN (Reason: Anxiety) 0RF (DME) blood sugar diagnostic Strip See Rx Instructions .Route 0RF Rx Instructions: As directed- 3 times daily (DME) BLOOD PRESSURE MONITOR See Rx Instructions .Route .MEDSUPPLY Qty: 1 0RF Rx Instructions: As directed Lantus Solostar U-100 Insulin 100 unit/mL (3 mL) insulin pen 14 unit subcut QPM Qty: 3 3RF
[2021-06-06 03:52] LABS: Troponin-I High Sensitivity < 3.5 ng/L (<3.5-17.0)
[2021-06-06] MEDS: iohexoL 350 MG/ML 100 ML INFUS..BTL 65 ML IV (04:05)
--- NOTE | 2021-06-06 04:35 | PC.NURSE ---
Dr Bueno made aware of pt's BP 149/77. This RN informed Dr Bueno that labetalol had not been admin yet, provider instructs this RN to hold med.
[2021-06-06 04:53] LABS: INTERNATIONAL NORM RATIO 1.1 (0.9-1.1); Prothrombin Time 12.7 SEC (9.9-13.0)
[2021-06-06 04:54] LABS: COVID-19 Test Negative (Negative)
[2021-06-06] MEDS: Aspirin 81 MG TAB.CHEW 324 MG PO (05:38)
[2021-06-06 07:10] LABS: Glucose, Whole Blood 152 mg/dL (60-115)
--- NOTE | 2021-06-06 07:17 | PM.IMHP ---
History of Present Illness Date of Service: 06/06/21 Chief Complaint: high blood pressure 60-year-old female came to the hospital in due to high blood pressures measured at home. Patient states she was feeling foggy so she checked her blood pressure and systolic was about 220. Patient states about 1 week prior to presentation she started to feel right upper and lower extremity weakness, incoordination, and left facial numbness. She presented to the ED at that time was diagnosed with a small age-indeterminate lacunar infarct in left basal ganglia. It appears that at that time she min on of mentioned her right-sided symptoms, therefore, findings were not attributed to the stroke and patient was discharged home. Patient had a right thalamic stroke diagnosed in November of 2020 and has been on aspirin and statin. In ED CTA shows evolving subacute infarct within the left thalamus, multifocal stenoses in multiple cerebral arteries. Review of Systems Review of Systems: Constitutional: Denies fever, denies Chills Eyes: denies blurry vision ENT: denies sore throat CVS: denies chest pain Respiratory: Denies dyspnea GI: no abdominal pain : denies dysuria MSK: denies neck pain Skin: denies rash Neuro: right sided weakness Psych: denies suicidal ideation Endocrine: denies heat/cold intolerance Hematologic: denies easy bleeding Allergy: denies hives [facility] Medical History Anemia, iron deficiency Anxiety Benign essential hypertension Depression Diabetes mellitus Fibromyalgia GERD without esophagitis Insomnia Lumbar degenerative disc disease Obesity (BMI 30-39.9) Pure hypercholesterolemia Right thalamic stroke Sciatic pain Family History Father Suicide Epilepsy Mother Poor high blood pressure control Diabetes Hypertension Daughter Spina bifida Brother Stroke Other Mental health problem Surgical History H/O bilateral breast reduction surgery History of appendectomy History of carpal tunnel release History of section History of hysterectomy History of left salpingo-oophorectomy Social History Household Members: Significant Other Housing: Apartment Do you presently have visiting nurse or other home services: No Alcohol intake: never Patient Tobacco Use Status: Never used Tobacco e-Cigarette/Vaping Use: Never Used Second Hand Smoke Exposure: Yes Advance Directives: No service: No Current occupational status: disabled Meds Allergies Allergy/AdvReac Type Severity Reaction Status Date / Time ibuprofen [From Motrin] Allergy Mild STOMACH Verified 06/06/21 02:43 UPSET oxycodone [From Percocet] Allergy Mild ITCHING Verified 06/06/21 02:43 lactose [LACTOSE] Allergy Unknown ABD PAIN Verified 06/06/21 02:43 metformin AdvReac Unknown nausea, Verified 06/06/21 02:43 somnolence Active Medications: Current Medications Aspirin (Aspirin 81 Mg Tab.Chew) 81 mg PO DAILY [facility] Atorvastatin Calcium (Atorvastatin Calcium 80 Mg Tablet) 80 mg PO BEDTIME [facility] Bupropion HCl (Bupropion Hcl Xl 300 Mg Tab.Er.24h) 300 mg PO DAILY [facility] Clopidogrel Bisulfate (Clopidogrel Bisulfate 75 Mg Tablet) 75 mg PO DAILY [facility] Dextrose (Dextrose 50 % 25 Gm/50 Ml Syringe) 25 gm IVPUSH Q15M PRN; Protocol PRN Reason: per Hypoglycemia Standing Ord. Fluoxetine HCl (Fluoxetine Hcl 20 Mg Capsule) 20 mg PO DAILY [facility] Gabapentin (Gabapentin 400 Mg Capsule) 400 mg PO TID [facility] Glucose (Glucose Gel 15 Gm Gel..Gram.) 15 gm PO Q15M PRN; Protocol PRN Reason: per Hypoglycemia Standing Ord. Insulin Glargine (Insulin Glargine,Hum.Rec.Anlog 100 Unit/Ml 10 Ml Vial) 15 unit SUBCUT DAILY [facility] Insulin Human Lispro (Insulin Lispro 100 Unit/Ml 3 Ml Vial) 0 unit SUBCUT QIDACHS [facility]; Protocol Losartan Potassium (Losartan Potassium 50 Mg Tablet) 100 mg PO DAILY [facility]; Protocol Pharmacy Consult (Consult Rx Perform Med Rec) 1 each MISCELLANE ONCE PRN PRN Reason: Consult order Home Medications Medication Instructions Recorded Confirmed Last Taken Type blood sugar diagnostic 11/12/20 06/01/21 Unknown History bupropion HCl 300 mg 24 hr tablet, 300 mg PO DAILY 11/12/20 06/01/21 Unknown History extended release fluoxetine 20 mg capsule 20 mg PO DAILY 11/12/20 06/01/21 Unknown History lorazepam 0.5 mg tablet 0.5 mg PO PRN 11/12/20 06/01/21 Unknown History zolpidem 10 mg tablet 10 mg PO BEDTIME 11/12/20 06/01/21 Unknown History Physical Exam Vital Signs and Narrative: Vital Signs: Last Vital Signs Temp 98.0 F 06/06/21 05:14 Pulse 88 06/06/21 05:42 Resp 16 06/06/21 05:42 BP 162/82 H 06/06/21 05:42 Pulse Ox 98 06/06/21 05:42 BMI result Body Mass Index 31.3 General: no acute distress HEENT: atraumatic Neck: normal to visual inspection CVS: S1, S2, RRR Resp: CTA bilateral Chest: non tender GI: soft, non tender, non distended : no CVA tenderness Skin: no rashes Extremities: no edema Neuro: Oriented X3, grossly intact Psych: cooperative Results Labs CBC and Chem 7: 06/05/21 20:45 06/05/21 20:45 Labs: Laboratory Results - last 24 hr 06/05/21 06/05/21 06/06/21 20:45 20:45 02:47 MCV 86.6 MCH 28.7 MCHC 33.1 RDW 12.1 Plt Count 520 H MPV 8.9 L Immature Gran % (Auto) 0.3 Neut % (Auto) 65.6 Lymph % (Auto) 26.0 [place] % (Auto) 7.0 Eos % (Auto) 0.8 Baso % (Auto) 0.3 Lymph # (Auto) 3.1 [place] # (Auto) 0.8 Eos # (Auto) 0.1 Baso # (Auto) 0.0 Abs Immat Gran (auto) 0.04 H Absolute Neuts (auto) 7.7 Absolute Nucleated RBC 0.000 Nucleated RBC % (auto) 0.0 PT INR Anion Gap 13 Estim Creat Clear Calc 52.7 Estimated GFR 58 POC Glucose Random Glucose 181 H Calcium 9.7 D Urine Color YELLOW Urine Appearance CLEAR Urine pH 6.5 Ur Specific [place] 1.025 Urine Protein 1+ H Urine Glucose (UA) 500 H Urine Ketones NEG Urine Blood NEG Urine Nitrite NEG Ur Leukocyte Esterase NEG Urine RBC 0-2 Urine WBC 0-2 Ur Squamous Epith Cells 2+ Urine Bacteria NONE Hyaline Casts 1-4 Granular Casts 0-2 Urine Mucus 1+ COVID-19 ([facility]) COVID-19 Clin Com 06/06/21 06/06/21 06/06/21 04:30 04:32 06:56 MCV MCH MCHC RDW Plt Count MPV Immature Gran % (Auto) Neut % (Auto) Lymph % (Auto) [place] % (Auto) Eos % (Auto) Baso % (Auto) Lymph # (Auto) [place] # (Auto) Eos # (Auto) Baso # (Auto) Abs Immat Gran (auto) Absolute Neuts (auto) Absolute Nucleated RBC Nucleated RBC % (auto) PT 12.7 INR 1.1 Anion Gap Estim Creat Clear Calc Estimated GFR POC Glucose 152 H Random Glucose Calcium Urine Color Urine Appearance Urine pH Ur Specific [place] Urine Protein Urine Glucose (UA) Urine Ketones Urine Blood Urine Nitrite Ur Leukocyte Esterase Urine RBC Urine WBC Ur Squamous Epith Cells Urine Bacteria Hyaline Casts Granular Casts Urine Mucus COVID-19 ([facility]EN) Negative COVID-19 Clin Com See Note Imaging Radiologist's Impressions: Impressions Head CT 06/06/21 03:45 IMPRESSION: * Evolving subacute infarct within the left thalamus as evidenced by decreased in conspicuity on the unenhanced images compatible with fogging effect , and associated enhancement during the delayed phase. * Multifocal stenoses of the left P2 and proximal P3 segments, the latter being a high-grade. Left thalamoperforators originate from the segments of the posterior cerebral artery. 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 * Mild focal stenosis at the origins of the proximal extracranial internal carotid arteries. Head/Neck CTA 06/06/21 04:10 IMPRESSION: * Evolving subacute infarct within the left thalamus as evidenced by decreased in conspicuity on the unenhanced images compatible with fogging effect , and associated enhancement during the delayed phase. * Multifocal stenoses of the left P2 and proximal P3 segments, the latter being a high-grade. Left thalamoperforators originate from the segments of the posterior cerebral artery. 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 * Mild focal stenosis at the origins of the proximal extracranial internal carotid arteries. Assessment and Plan (1) Infarction of left thalamus: Status: Acute Plan 60F presented with high blood pressure Subacute left thalamic infarct Admit to tele Continue aspirin statin What Plavix Neuro eval PT, OT No evidence of dysphagia Diabetes Basal bolus insulin Hypertension Losartan Quality Stroke Does the patient have a stroke diagnosis?: Yes Reason for No Anti-thrombotic by Day Two: N/A - Med Ordered VTE Prior VTE?: No VTE Risk Level:: Medical - moderate - high VTE Device Contraindication: Treatment Not Indicated VTE Drug Contraindication: N/A - Med Ordered
--- NOTE | 2021-06-06 08:04 | PHA.MEDREC ---
Pharmacy Consult ? Medication Reconciliation Pharmacy has completed the medication reconciliation. Rosio DixonD
[2021-06-06] MEDS: Losartan Potassium 50 MG TABLET 100 MG PO (09:12)
[2021-06-06] MEDS: Insulin Lispro 100 UNIT/ML 3 ML VIAL SUBCUT ×3 (09:12→16:39)
[2021-06-06] MEDS: Enoxaparin Sodium 40 MG/0.4 ML SYRINGE SUBCUT (09:12)
[2021-06-06] MEDS: FLUoxetine HCl 20 MG CAPSULE PO (09:13)
[2021-06-06] MEDS: Aspirin 81 MG TAB.CHEW PO (09:13)
[2021-06-06] MEDS: Clopidogrel Bisulfate 75 MG TABLET PO (09:13)
[2021-06-06] MEDS: Gabapentin 400 MG CAPSULE PO (09:13)
--- NOTE | 2021-06-06 09:26 | PC.NURSE ---
Lantus 15 units not given due to the fact that patient takes Lantus 14 units at night. MD Andrew contacted to correct dose & administration time of this medication. Wellbutrin XL was not available in Pyx[facility], will give once brought to ED.
--- NOTE | 2021-06-06 10:26 | MHC.STROKE ---
WALK-IN 06/05/20 AT 1735 C/O BRAGG, HIGH BP, TIRED, RIGHT LEG WEAK FOR 1 WEEK, SINCE 05/29/21. . BP 244/115. NIHSS = 1, CTH AND CTH H/N NO BLEED. SEE REPORT. PATIENT KNOWN TO STROKE SERVICE FROM PRIOR CVA RIGHT THALAMUS 11/21/20. SHE WAS ALSO HYPERTENSIVE AT THAT TIME. I VERIFIED WITH RN SHAKA THAT SHE PASSED SWALLOW SCREEN AT 1850 PRIOR TO PO. STROKE EDUCATION DONE. STROKE RISK FACTORS REVIEWED WITH THE PATIENT, HTN, DM, HLD, DEPRESSION, OBESITY, PRIOR CVA. SHE SAID THAT SHE TAKES HER MEDICATIONS, I DID REINFORCE THE IMPORTANCE OF MEDICATION COMPLIANCE FOR PREVENTING FUTURE STROKES, THIS IS HER SECOND STROKE. I EXPLAINED HOW HIGH BP AFFECTS THE BLOOD VESSELS. I USED THE STROKE EDUCAITON BOOKLET TO REFER TO AND PICTURES. PLAVIX WAS ADDED TO HER MEDICATIONS AND SHE NEEDS TO FOLLOW UP WITH HER GRE[facility]T FOR BP CONTROL.
--- NOTE | 2021-06-06 11:11 | P.CNNE_ITS ---
History of Present Illness Data of Consult Service Date: 06/06/21 Primary Care Provider: Michael Peoples MD HPI Reason for consult: Stroke 60 years old woman who came to hospital with right-sided numbness and weakness and difficulty speaking that started 3 or 4 days before she came to emergency room. There was no associated pain dizziness nausea vomiting or change in mental status or change in walking in emergency room her blood pressure was high and she was admitted. Review of Systems Review of Systems: No recent cold or flu-like illness headache or trauma. [facility] Past Medical History Medical History Anemia, iron deficiency Anxiety Benign essential hypertension Depression Diabetes mellitus Fibromyalgia GERD without esophagitis Insomnia Lumbar degenerative disc disease Obesity (BMI 30-39.9) Pure hypercholesterolemia Right thalamic stroke Sciatic pain Family History Family History Father Suicide Epilepsy Mother Poor high blood pressure control Diabetes Hypertension Daughter Spina bifida Brother Stroke Other Mental health problem Surgical History Surgical History H/O bilateral breast reduction surgery History of appendectomy History of carpal tunnel release History of section History of hysterectomy History of left salpingo-oophorectomy Social History Social History Household Members: Significant Other Housing: Apartment Do you presently have visiting nurse or other home services: No Alcohol intake: never Patient Tobacco Use Status: Never used Tobacco e-Cigarette/Vaping Use: Never Used Second Hand Smoke Exposure: Yes Advance Directives: No service: No Current occupational status: disabled Meds Allergies Allergy/AdvReac Type Severity Reaction Status Date / Time ibuprofen [From Motrin] Allergy Mild STOMACH Verified 06/06/21 02:43 UPSET oxycodone [From Percocet] Allergy Mild ITCHING Verified 06/06/21 02:43 lactose [LACTOSE] Allergy Unknown ABD PAIN Verified 06/06/21 02:43 metformin AdvReac Unknown nausea, Verified 06/06/21 02:43 somnolence Active Medications: Current Medications Aspirin (Aspirin 81 Mg Tab.Chew) 81 mg PO DAILY [facility] Last Admin: 06/06/21 09:13 Dose: 81 mg Documented by: Atorvastatin Calcium (Atorvastatin Calcium 80 Mg Tablet) 80 mg PO BEDTIME [facility] Bupropion HCl (Bupropion Hcl Xl 300 Mg Tab.Er.24h) 300 mg PO DAILY [facility] Last Admin: 06/06/21 09:12 Dose: Not Given Documented by: Clopidogrel Bisulfate (Clopidogrel Bisulfate 75 Mg Tablet) 75 mg PO DAILY [facility] Last Admin: 06/06/21 09:13 Dose: 75 mg Documented by: Dextrose (Dextrose 50 % 25 Gm/50 Ml Syringe) 25 gm IVPUSH Q15M PRN; Protocol PRN Reason: per Hypoglycemia Standing Ord. Enoxaparin Sodium (Enoxaparin Sodium 40 Mg/0.4 Ml Syringe) 40 mg SUBCUT Q24H [facility] Last Admin: 06/06/21 09:12 Dose: 40 mg Documented by: Fluoxetine HCl (Fluoxetine Hcl 20 Mg Capsule) 20 mg PO DAILY [facility] Last Admin: 06/06/21 09:13 Dose: 20 mg Documented by: Gabapentin (Gabapentin 400 Mg Capsule) 400 mg PO BID [facility] Last Admin: 06/06/21 09:13 Dose: 400 mg Documented by: Glucose (Glucose Gel 15 Gm Gel..Gram.) 15 gm PO Q15M PRN; Protocol PRN Reason: per Hypoglycemia Standing Ord. Insulin Glargine (Insulin Glargine,Hum.Rec.Anlog 100 Unit/Ml 10 Ml Vial) 14 unit SUBCUT BEDTIME [facility] Insulin Human Lispro (Insulin Lispro 100 Unit/Ml 3 Ml Vial) 0 unit SUBCUT QIDACHS [facility]; Protocol Last Admin: 06/06/21 09:12 Dose: 2 unit Documented by: Losartan Potassium (Losartan Potassium 50 Mg Tablet) 100 mg PO DAILY [facility]; Protocol Last Admin: 06/06/21 09:12 Dose: 100 mg Documented by: Pharmacy Consult (Consult Rx Perform Med Rec) 1 each MISCELLANE ONCE PRN PRN Reason: Consult order Home Medications Medication Instructions Recorded Confirmed Last Taken Type blood sugar diagnostic 11/12/20 06/01/21 06/05/21 History bupropion HCl 300 mg 24 hr tablet, 300 mg PO DAILY 11/12/20 06/06/21 06/05/21 History extended release fluoxetine 20 mg capsule 20 mg PO DAILY 11/12/20 06/06/21 06/05/21 History lorazepam 0.5 mg tablet 0.5 mg PO PRN 11/12/20 06/01/2106/05/22 History zolpidem 10 mg tablet 10 mg PO BEDTIME 11/12/20 06/06/21 06/05/21 History dulaglutide 0.75 mg/0.5 mL 0.75 mg SUBCUT TH@0900 06/06/21 06/06/21 06/05/21 History subcutaneous pen injector (Trulicity) gabapentin 400 mg capsule 400 mg PO BID 06/06/21 06/06/21 06/05/21 History insulin glargine 100 unit/mL (3 14 unit SUBCUT BEDTIME 06/06/21 06/06/21 06/05/21 History mL) subcutaneous pen (Lantus Solostar U-100 Insulin) potassium chloride 10 mEq 10 meq PO TID 06/06/21 06/06/21 06/05/21 History tablet,extended release(part/cryst) Physical Exam Vital Signs: Vital Signs: Last Vital Signs Temp 98.0 F 06/06/21 05:14 Pulse 88 06/06/21 09:58 Resp 16 06/06/21 05:42 BP 162/82 H 06/06/21 09:58 Pulse Ox 98 06/06/21 09:58 BMI result Body Mass Index 31.3 Neuro: Other: She was alert and awake with normal spontaneity of speech fluency comprehension and affect. Pupils were equal and reactive to light and extraocular muscles were intact. Visual billy are full to confrontation. Face was symmetrical. There was no pronator drift. Deep tendon reflexes were trace to 1+ with flexor plantars. Rxfcak-mp-gauo testing was normal. There was no sensory or visual extinction. Speech was normal. Results Labs CBC & Chem 7: 06/05/21 20:45 06/05/21 20:45 Labs: Short CBC 06/05/21 Range/Units 20:45 WBC 11.8 H (4.8-10.8) X10*3/uL Hgb 13.3 (12.0-16.0) g/dl Hct 40.2 (37.0-47.0) % Plt Count 520 H (160-400) X10*3/uL BMP 06/05/21 20:45 Sodium 141 Potassium 4.0 Chloride 101 Carbon Dioxide 31 H BUN 11 Creatinine 0.98 Calcium 9.7 D Urine 02/21/22 Range/Units 02:47 Urine Color YELLOW Urine Appearance CLEAR Urine pH 6.5 (5.0-8.0) Ur Specific [place] 1.025 (1.005-1.025) Urine Protein 1+ H (NEG-TRACE) MG/DL Urine Glucose (UA) 500 H (NEG) MG/DL Head CT revealed a left supra thalamic area hypodensity suggestive of evolving ischemic infarct. CTA reveal multifocal intracranial atherosclerotic disease. Assessment and Plan (1) Infarction of left thalamus: Status: Acute 60 years old woman with uncontrolled hypertension and significant intracranial atherosclerotic disease resulting in multi focal stenosis presented with few days of right-sided numbness and weakness and difficulty speaking. Her evaluation revealed an evolving left supra thalamic ischemic infarction and vascular lesions. Mainstay of management is anti-platelet agent, statin and blood pressure control. For now I would recommend combination of baby aspirin daily and clopidogrel 75 mg daily for few weeks and then discontinuing 1 of them. In the meantime statin and blood pressure control should continue. Procedures Date of Service Date of Service: 06/06/21
[2021-06-06 12:16] LABS: Glucose, Whole Blood 188 mg/dL (60-115)
--- NOTE | 2021-06-06 15:23 | PM.DS ---
DS: Providers Provider Date of Service: 06/06/21 Date of admission: 06/06/21 07:10 Primary care physician: Michael Peoples MD Consults: 06/06/21 07:05 Consult to Neurology Routine Consulting Provider: [facility] Reason for consultation: subacute cva DS: Diagnosis Discharge Diagnosis (1) Infarction of left thalamus: Status: Acute DS: Summary Hospital Course Hospital Course: Patient was admitted for subacute left thalamic infarct. She was continued on her aspirin and statin. Plavix was added. She was monitored on telemetry should not show any AFib. She was seen by neurology recommended continuing aspirin Plavix for 1 month and then removing 1 of them. She was seen by PT who recommended outpatient PT. Patient's deficits of resolved and she is requesting to go home. Time Spent with Patient Time attestation: Total time spent providing and/or coordinating discharge services: Discharge coordination time: Greater than 30 minutes Quality: Stroke Does the patient have a stroke diagnosis?: Yes Reason for No Anti-thrombotic at DC: N/A - Med Ordered Reason for No Anticoagulant at DC: Drug treatment not indicated Reason Not Initiating IV-Tpa: Drug treatment not indicated Reason for No Anti-thrombotic by Day Two: N/A - Med Ordered Reason for No Statin at DC: N/A - Med Ordered Physical Exam Vital Signs: Vital Signs: Last Vital Signs Temp 98.1 F 06/06/21 14:41 Pulse 89 06/06/21 14:41 Resp 17 06/06/21 14:41 BP 163/86 H 06/06/21 14:41 Pulse Ox 99 06/06/21 14:41 BMI result Body Mass Index 31.3 General: AO X 3, no acute distress Resp: CTA bilateral, no accessory muscles used CVS: S1,S2,RRR GI: soft, non tender, non distended Neuro: motor grossly intact, alert Psych: appropriate affect, appropriate insight DS: Data Data Completed and Pending Labs on day of discharge: Laboratory Results - last 24 hr 06/05/21 06/05/21 06/05/21 20:45 20:45 20:45 WBC 11.8 H RBC 4.64 Hgb 13.3 Hct 40.2 MCV 86.6 MCH 28.7 MCHC 33.1 RDW 12.1 Plt Count 520 H MPV 8.9 L Immature Gran % (Auto) 0.3 Neut % (Auto) 65.6 Lymph % (Auto) 26.0 [place] % (Auto) 7.0 Eos % (Auto) 0.8 Baso % (Auto) 0.3 Lymph # (Auto) 3.1 [place] # (Auto) 0.8 Eos # (Auto) 0.1 Baso # (Auto) 0.0 Abs Immat Gran (auto) 0.04 H Absolute Neuts (auto) 7.7 Absolute Nucleated RBC 0.000 Nucleated RBC % (auto) 0.0 PT INR Sodium 141 Potassium 4.0 Chloride 101 Carbon Dioxide 31 H Anion Gap 13 BUN 11 Creatinine 0.98 Estim Creat Clear Calc 52.7 Estimated GFR 58 POC Glucose Random Glucose 181 H Calcium 9.7 D Troponin I High Sens < 3.5 Urine Color Urine Appearance Urine pH Ur Specific [place] Urine Protein Urine Glucose (UA) Urine Ketones Urine Blood Urine Nitrite Ur Leukocyte Esterase Urine RBC Urine WBC Ur Squamous Epith Cells Urine Bacteria Hyaline Casts Granular Casts Urine Mucus COVID-19 ([facility]) COVID-19 Clin Com 06/06/21 06/06/21 06/06/21 02:47 04:30 04:32 WBC RBC Hgb Hct MCV MCH MCHC RDW Plt Count MPV Immature Gran % (Auto) Neut % (Auto) Lymph % (Auto) [place] % (Auto) Eos % (Auto) Baso % (Auto) Lymph # (Auto) [place] # (Auto) Eos # (Auto) Baso # (Auto) Abs Immat Gran (auto) Absolute Neuts (auto) Absolute Nucleated RBC Nucleated RBC % (auto) PT 12.7 INR 1.1 Sodium Potassium Chloride Carbon Dioxide Anion Gap BUN Creatinine Estim Creat Clear Calc Estimated GFR POC Glucose Random Glucose Calcium Troponin I High Sens Urine Color YELLOW Urine Appearance CLEAR Urine pH 6.5 Ur Specific [place] 1.025 Urine Protein 1+ H Urine Glucose (UA) 500 H Urine Ketones NEG Urine Blood NEG Urine Nitrite NEG Ur Leukocyte Esterase NEG Urine RBC 0-2 Urine WBC 0-2 Ur Squamous Epith Cells 2+ Urine Bacteria NONE Hyaline Casts 1-4 Granular Casts 0-2 Urine Mucus 1+ COVID-19 ([facility]) Negative COVID-19 Clin Com See Note 06/06/21 06/06/21 06:56 12:02 WBC RBC Hgb Hct MCV MCH MCHC RDW Plt Count MPV Immature Gran % (Auto) Neut % (Auto) Lymph % (Auto) [place] % (Auto) Eos % (Auto) Baso % (Auto) Lymph # (Auto) [place] # (Auto) Eos # (Auto) Baso # (Auto) Abs Immat Gran (auto) Absolute Neuts (auto) Absolute Nucleated RBC Nucleated RBC % (auto) PT INR Sodium Potassium Chloride Carbon Dioxide Anion Gap BUN Creatinine Estim Creat Clear Calc Estimated GFR POC Glucose 152 H 188 H Random Glucose Calcium Troponin I High Sens Urine Color Urine Appearance Urine pH Ur Specific [place] Urine Protein Urine Glucose (UA) Urine Ketones Urine Blood Urine Nitrite Ur Leukocyte Esterase Urine RBC Urine WBC Ur Squamous Epith Cells Urine Bacteria Hyaline Casts Granular Casts Urine Mucus COVID-19 ([facility]) COVID-19 Clin Com Discharge Plan Discharge Patient Disposition: Home, Self-Care Discharge Diagnosis: cva, htn Referrals: Michael Peoples MD [Primary Care Provider] - 1 Week Crarie Sales MD [Physician] - 1 Week Discharge Medications: New clopidogrel 75 mg Tablet 75 mg PO DAILY Qty: 30 0RF nifedipine 30 mg tablet extended release 30 mg PO DAILY Qty: 30 0RF Continued (DME) pen needle, diabetic [Pen Needle] 31 gauge x 1/4 needle See Rx Instructions .Route Qty: 100 3RF Rx Instructions: As directed daily losartan 100 mg tablet 100 mg PO DAILY Qty: 30 3RF glimepiride 4 mg tablet 4 mg PO QAM Qty: 30 3RF aspirin 81 mg tablet,chewable 81 mg PO DAILY Qty: 30 3RF (DME) lancets [OneTouch UltraSoft Lancets] Misc See Rx Instructions .Route Qty: 200 0RF Rx Instructions: test 3x day hydrochlorothiazide 12.5 mg tablet 12.5 mg PO DAILY Qty: 30 0RF atorvastatin 80 mg tablet 80 mg PO BEDTIME Qty: 30 3RF alcohol swabs [Alcohol Pads] Pads, Medicated 1 pad topical DAILY 30 Days 0RF gabapentin 400 mg capsule 400 mg PO BID 0RF potassium chloride 10 mEq tablet,ER particles/crystals 10 meq PO TID 0RF Lantus Solostar U-100 Insulin 100 unit/mL (3 mL) insulin pen 14 unit subcut BEDTIME 0RF Trulicity 0.75 mg/0.5 mL pen injector 0.75 mg subcut TH@0900 0RF bupropion HCl 300 mg tablet extended release 24 hr 300 mg PO DAILY 0RF fluoxetine 20 mg capsule 20 mg PO DAILY 0RF zolpidem 10 mg tablet 10 mg PO BEDTIME 0RF lorazepam 0.5 mg tablet 0.5 mg PO PRN (Reason: Anxiety) 0RF (DME) blood sugar diagnostic Strip See Rx Instructions .Route 0RF Rx Instructions: As directed- 3 times daily (DME) BLOOD PRESSURE MONITOR See Rx Instructions .Route .MEDSUPPLY Qty: 1 0RF Rx Instructions: As directed Discharge Orders: Discharge Order (Routine); Ordered 06/06/21 Ordered By: Denilson Morales Diet: low salt diet Activity on Discharge: As tolerated Stand Alone Forms: Patient Portal Discharge page Care Plan Goals: prevent further strokes Health Concerns: cva, htn Plan of Treatment: added nifedipine, plavix, after one month can stop one of either plavix or aspirin. outpatient pt, follow up neuro Assessment: see above
--- NOTE | 2021-06-06 15:28 | MHC.CM.PN ---
PATIENT LIVES WITH HER BOYFRIEND. SHE REPORTS THAT HE IS UNABLE TO PROVIDE CARE FOR HER, HE IS ALSO DISABLED. WHEN ASKED WHO DRIVES FOR PATIENT, SHE REPORTS THAT SHE DRIVES HERSELF. SHE HAS A CANE AND A WALKER IN THE HOME. SHE IS NOT VACCINATED AGAINST COVID-19 PATIENT DOES NOT HAVE A HCP ON FILE SHE IS CURRENTLY BEING TRANSPORTED TO 4TH FLOOR AND THIS CAN BE ADDRESSED WITH A SUBCONTRACT MANAGER IF SHE CHOOSES AN AGENT OR TWO. SHE DOES REPORT THAT [facility] HAS SCHEDULED AN ASSESSMENT VISIT AT HER HOME ON JUNE 15, 2021. IMM 06/06 IN MEDICAL RECORD BIN OF Arm[place], CHART IS NO LONGER HERE.
[2021-06-06 15:49] LABS: Glucose, Whole Blood 262 mg/dL (60-115)
--- NOTE | 2021-06-06 16:02 | PC.NURSE ---
patient from the ER to room 468 via wheelchair,alert and oriented . patient oriented x 4 , pt has discharge order from MD to go home today .verified with DR. Morales that patient is discharged .
--- NOTE | 2021-06-06 16:32 | PC.NURSE ---
blood pressure 184/75 , Dr Morales was notified ,Nifedipine ER 30 mg po ordered , pt is planning to go home tonight
[2021-06-06] MEDS: NIFEdipine ER 30 MG TAB.ER.24 PO (16:39)
[2021-06-07 12:23] LABS: Cholesterol 134 mg/dL; HDL Cholesterol 53 mg/dL; LDL Cholesterol Calculated 53 mg/dl; Triglycerides 141 mg/dL
== END 2021-06-06 17:40 | disposition home or self-care (01) | DRG 65 ==
LOC: HO.ED 06-06 05:37 → HO.EDOVER 06-06 07:20 → HO.IMC 06-06 14:56
PROVIDERS: Admitting Provider Internal Medicine; Emergency Provider Student in an Organized Health Care Education/Training Program; PCP Internal Medicine; Visit Provider Internal Medicine
DX: I63.89 Other cerebral infarction (principal); G81.91 Hemiplegia, unspecified affecting right dominant side; K21.9 Gastro-esophageal reflux disease without esophagitis; M79.7 Fibromyalgia; I16.0 Hypertensive urgency; R29.701 NIHSS score 1; I10 Essential (primary) hypertension; R47.02 Dysphasia; Z20.822 Contact with and (suspected) exposure to COVID-19; Z88.5 Allergy status to narcotic agent; Z88.6 Allergy status to analgesic agent; Z79.4 Long term (current) use of insulin; Z79.02 Long term (current) use of antithrombotics/antiplatelets; Z79.82 Long term (current) use of aspirin; Z79.899 Other long term (current) drug therapy
CPT/HCPCS: 36415; 70450; 70496; 70498; 80048; 80061; 81001; 82947; 84484; 85025; 85610; 87635; 96374; 97161; 97165; 99285; J1650; Q9967

== ENCOUNTER 2021-07-25 15:28 | Outpatient (REF) | payer OTHER, SELFPAY ==
--- NOTE | ~2021-07-25 | XR_ITS ---
EXAMINATION: XR LUMBAR SPINE XR HIP, RIGHT CLINICAL INFORMATION: Lower back pain. Right hip pain. COMPARISON: Most recent CT abdomen/pelvis dated 07/09/2020. TECHNIQUE: AP, lateral, and coned-down views of the lumbar spine. AP and frog-leg lateral views of the right hip. FINDINGS: Lumbar Spine: Mild S-shaped curvature of the spine. The lumbar lordosis is maintained. Minimal, unchanged grade 1 anterolisthesis of L5 on S1. No acute fracture or subluxation. No loss of vertebral body height. Mild multilevel loss of intervertebral disc height with tiny endplate osteophytes. Bilateral facet arthropathy at L3-S1. Surgical clips in the right upper quadrant. Right Hip: No acute fracture or dislocation. Mild right hip joint space narrowing with small marginal osteophytes, unchanged. No concerning lytic or blastic osseous lesion. Degenerative arthritis at the symphysis pubis. No abnormal soft tissue calcification. XR/XR lumbar spine 2-3V IMPRESSION: LUMBAR SPINE: Mild multilevel degenerative disc disease with lower lumbar spine facet arthropathy, unchanged. Stable, chronic grade 1 anterolisthesis of L5 on S1. No acute osseous abnormality. RIGHT HIP: Mild osteoarthritis, unchanged. No acute osseous abnormality.
--- NOTE | ~2021-07-25 | XR_ITS ---
EXAMINATION: XR LUMBAR SPINE XR HIP, RIGHT CLINICAL INFORMATION: Lower back pain. Right hip pain. COMPARISON: Most recent CT abdomen/pelvis dated 07/09/2020. TECHNIQUE: AP, lateral, and coned-down views of the lumbar spine. AP and frog-leg lateral views of the right hip. FINDINGS: Lumbar Spine: Mild S-shaped curvature of the spine. The lumbar lordosis is maintained. Minimal, unchanged grade 1 anterolisthesis of L5 on S1. No acute fracture or subluxation. No loss of vertebral body height. Mild multilevel loss of intervertebral disc height with tiny endplate osteophytes. Bilateral facet arthropathy at L3-S1. Surgical clips in the right upper quadrant. Right Hip: No acute fracture or dislocation. Mild right hip joint space narrowing with small marginal osteophytes, unchanged. No concerning lytic or blastic osseous lesion. Degenerative arthritis at the symphysis pubis. No abnormal soft tissue calcification. XR/XR hip RT min 2V IMPRESSION: LUMBAR SPINE: Mild multilevel degenerative disc disease with lower lumbar spine facet arthropathy, unchanged. Stable, chronic grade 1 anterolisthesis of L5 on S1. No acute osseous abnormality. RIGHT HIP: Mild osteoarthritis, unchanged. No acute osseous abnormality.
== END 2021-07-25 15:29 | disposition home or self-care (01) ==
LOC: HO.XRAY 15:28
PROVIDERS: PCP Internal Medicine; Visit Provider Internal Medicine
DX: M54.50 Low back pain, unspecified (principal); M25.551 Pain in right hip
CPT/HCPCS: 72100; 73502

== ENCOUNTER 2021-10-03 14:10 | Observation (INO) | payer OTHER, SELFPAY ==
[2021-10-03] VITALS (10 sets, daily range): BP systolic 153–239; BP diastolic 66–129; PULSE 78–119; RESP 18–20; TEMP 36.6–36.8; O2SAT 95–99; BMI 31.8
--- NOTE | 2021-10-03 | ECG_ITS ---
Test Reason : chest pain Blood Pressure : / mmHG Vent. Rate : 107 BPM Atrial Rate : 107 BPM P-R Int : 142 ms QRS Dur : 074 ms QT Int : 360 ms P-R-T Axes : 045 -01 -06 degrees QTc Int : 480 ms Sinus tachycardia Minimal voltage criteria for LVH, may be normal variant ( R in aVL ) Borderline ECG When compared with ECG of 01-JUN-2021 17:25, No significant change was found Referred By: Generic ED Physician Electronically Signed By:NILTON MCDUFFIE MD
--- NOTE | ~2021-10-03 | CT_ITS ---
CT head/brain wo con CLINICAL INFORMATION: Reason for Exam head ache htn COMPARISON: Prior study May 2021 TECHNIQUE: Department standard protocol. This CT examination was performed using dose optimization techniques as appropriate, variously including the following: *Automated exposure control *Adjustment of mA and/or kV according to patient size (this includes techniques or standardized protocols for targeted exams where dose is matched to indication/reason for exam; i.e. extremities or head) *Use of iterative reconstruction technique DLP: 652 mGy-cm FINDINGS: CEREBRAL HEMISPHERES: There is no evidence of intra-axial or extra-axial mass, hemorrhage or acute infarct. BRAIN PARENCHYMA: Normal roche-white matter differentiation. SUBDURAL SPACE: No bleed. BASAL GANGLIA AND PINEAL GLAND: Unremarkable VENTRICLES: Symmetric and normal in size. CEREBELLUM AND BRAINSTEM: No space-occupying mass, hemorrhage or acute infarct. CEREBELLOPONTINE ANGLES: No lesion found. ORBITS: No intraorbital mass. VESSELS: Unremarkable SKULL BASE: Unremarkable INCLUDED SINUSES AT SKULL BASE: Clear SKULL AND SKIN: Near complete opacification of the left maxillary sinus probably a retention cyst 2.6 x [address]/CT head/brain wo con IMPRESSION: No CT evidence of intracranial space-occupying mass, bleed or infarct. Near complete opacification of left maxillary sinus probably a retention cyst. Normal CT scan does not rule out the possibility of hyperacute infarct in the first 12 hours. If patient symptoms persist may consider correlation with MRI, which is more sensitive for early acute infarct.
[2021-10-03 14:44] LABS: MANUAL DIFF FLAG NO
[2021-10-03 14:49] LABS: Basophils Percent Auto 0.4 % (0-2); Eosinophils Absolute Auto 0.3 X10*3/uL (0.0-0.4); Eosinophils Percent Auto 2.3 % (0-4); Hematocrit 37.1 % (37.0-47.0); Hemoglobin 12.5 g/dl (12.0-16.0); Imm Gran Abs Auto 0.02 X10*3/uL (0.00-0.03); Imm Gran Pct Auto 0.2 % (0.0-0.4); Mean Corpuscular HGB Conc 33.7 g/dl (31.0-35.0); Mean Corpuscular Hemoglobin 28.1 pg (27.0-33.0); Mean Corpuscular Volume 83.4 fL (80.0-98.0); Mean Platelet Volume 8.9 fL (9.4-12.3); Monocytes Absolute Auto 0.9 X10*3/uL (0.1-1.2); Monocytes Percent Auto 7.7 % (2-11); Neutrophils Absolute Auto 6.9 x10*3/uL (2.0-8.3); Neutrophils Percent Auto 62.4 % (45-73); Platelet Count 452 X10*3/uL (160-400); Red Blood Count 4.45 X10*6/uL (4.20-5.50); White Blood Count 11.1 X10*3/uL (4.8-10.8)
[2021-10-03 15:03] LABS: Anion Gap 13 (12-20); Blood Urea Nitrogen 9 mg/dL (9-16); Calcium 9.2 mg/dL (8.4-10.2); Carbon Dioxide 28 mmol/L (22-29); Chloride 101 mmol/L (96-108); Creatinine Clr Calc Pharmacy 65.2; Estimated Glomerular Filt Rate > 60; Glucose Random 233 mg/dL (60-115); Potassium 3.9 mmol/L (3.3-5.1); Sodium 138 mmol/L (135-145)
[2021-10-03 15:05] LABS: Troponin-I High Sensitivity < 3.5 ng/L (<3.5-17.0)
--- NOTE | 2021-10-03 15:58 | ED_ITS ---
HPI - Chest Pain General Chief Complaint: Chest Pain Stated Complaint: chest pain Time Seen by Provider: 10/03/21 15:57 Source: patient Mode of arrival: ambulatory Limitations: no limitations History of Present Illness HPI narrative: 60-year-old female with a past medical history of CVA, hypertension, hyperlipidemia diabetes, anemia, GERD, anxiety, depression, insomnia and lumbar degenerative disc disease Presents to the emergency department with complaints of 2 days of substernal chest pain with intermittent radiation to left arm, patient tells me the pain is intermittent, sharp. Patient also reports a se deuce headache, she tells me it is localized to the left side of her head, she tells me it is constant in nature. She denies dizziness or vision changes. At this time patient denies shortness of breath, fevers, chills, nausea, vomiting, abdominal pain. MD complaint: chest pain and chest discomfort Onset (ago): day(s) (2) Timing of current episode: episodic Prior episodes: Yes Pain location: substernal Pain radiation: none Severity: moderate Quality: sharp Relieving factors: nothing Exacerbating factors: nothing Treatment prior to arrival: aspirin Related Data Home Medications Medication Instructions Recorded Confirmed blood sugar diagnostic 11/12/20 09/15/21 fluoxetine 20 mg capsule 20 mg PO DAILY 11/12/20 09/15/21 lorazepam 0.5 mg tablet 0.5 mg PO PRN Anxiety 11/12/20 09/15/21 zolpidem 10 mg tablet 10 mg PO BEDTIME 11/12/20 09/15/21 potassium chloride 10 mEq 10 meq PO TID 06/06/21 09/15/21 tablet,extended release(part/cryst) bupropion HCl 150 mg 24 hr tablet, 150 mg PO BEDTIME 07/25/21 09/15/21 extended release Previous Rx's Medication Instructions Recorded alcohol swabs (Alcohol Pads) 1 pad topical DAILY 30 days 11/23/20 BLOOD PRESSURE MONITOR #1 ea 11/26/20 pen needle, diabetic 31 gauge x #100 ea 12/23/2004/19 (Pen Needle) hydrochlorothiazide 12.5 mg tablet 12.5 mg PO DAILY #30 tabs 06/02/21 lancets (OneTouch UltraSoft #200 ea 06/02/21 Lancets) clopidogrel 75 mg tablet 75 mg PO DAILY #30 tabs 06/06/21 nifedipine 30 mg tablet,extended 30 mg PO DAILY #30 tabs 06/06/21 release dulaglutide 1.5 mg/0.5 mL 0.75 mg (0.25 mL) subcut TH@0900 07/25/21 subcutaneous pen injector 28 days #1 mL insulin glargine 100 unit/mL (3 20 unit (0.2 mL) subcut BEDTIME 30 07/25/21 mL) subcutaneous pen (Lant days #6 mL Solostar U-100 Insulin) diclofenac sodium 1 % topical gel 2 g topical QID 14 days #100 grams 07/26/21 (Arthritis Pain (diclofenac)) losartan 100 mg tablet 100 mg PO DAILY #30 tabs 07/26/21 fluticasone propionate 50 1 spray intranasal DAILY #100 mL 09/15/21 mcg/actuation nasal spray,suspension (Flonase Allergy Relief) aspirin 81 mg chewable tablet 81 mg PO DAILY #30 tabs 09/23/21 atorvastatin 80 mg tablet 80 mg PO BEDTIME #30 tabs 09/23/21 gabapentin 400 mg capsule 400 mg PO BID #90 caps 09/23/21 glimepiride 4 mg tablet 4 mg PO QAM #30 tabs 09/23/21 Allergies Allergy/AdvReac Type Severity Reaction Status Date / Time ibuprofen [From Motrin] Allergy Mild STOMACH Verified 09/15/21 16:06 UPSET oxycodone [From Percocet] Allergy Mild ITCHING Verified 09/15/21 16:06 lactose [LACTOSE] Allergy Unknown ABD PAIN Verified 09/15/21 16:06 metformin AdvReac Unknown nausea, Verified 09/15/21 16:06 somnolence Review of Systems Review of Systems: Constitutional : No Weight loss, No Fever, No Chills, No Fatigue, No Malaise ENT/Mouth : No sore throat, No Rhinorrhea Eyes: No Eye Pain, No Swelling, No Redness Cardiovascular : + Chest Pain, No SOB, No Dyspnea on Exertion, No Orthopnea, No Edema, No Palpitations Respiratory : No Cough, No Sputum, No Wheezing Gastrointestinal : No Nausea, No Vomiting, No Diarrhea, No Constipation, No abdominal Pain, No Hematochezia, No Melena Genitourinary : No Dysuria, No Urinary Frequency, No Hematuria, Musculoskeletal : No joint pain, No Myalgias, No Joint Swelling Skin : No Skin Lesions, No rash Neuro : No Weakness, No Numbness, No Dizziness, + Headache Psych : No Anxiety/Panic, No Depression All other systems reviewed and are negative Yes all other systems are reviewed and are negative [facility] Past Medical History Attestation statement: The following information was validated with the patient. Source: old records reviewed and nursing notes reviewed Medical History Sciatic pain Surgical History H/O bilateral breast reduction surgery History of appendectomy History of carpal tunnel release History of section History of hysterectomy History of left salpingo-oophorectomy Family History Family History Father Suicide Epilepsy Mother Poor high blood pressure control Diabetes Hypertension Daughter Spina bifida Brother Stroke Other Mental health problem Social History Social History Household Members: Spouse Housing: Apartment Do you presently have visiting nurse or other home services: No Alcohol intake: never Patient Tobacco Use Status: Never used Tobacco e-Cigarette/Vaping Use: Never Used Second Hand Smoke Exposure: Yes Advance Directives: No Advance Directives Information Provided: No Patient : No service: No Current occupational status: disabled Cognitive needs: Yes (cane) Hearing needs: No Vision needs: Yes (glasses) Physical Exam Vital Signs: Vital Signs: Last Vital Signs Temp 98.2 F 10/03/21 14:25 Pulse 79 10/03/21 22:16 Resp 20 10/03/21 14:25 BP 157/79 H 10/03/21 22:16 Pulse Ox 95 10/03/21 14:25 O2 Del Method 10/03/21 14:25 BMI result Body Mass Index 31.8 Patient noted to be significantly hypertensive, tachycardic. Appearance: Alert.? Oriented X3.? No acute distress.? Head: Normocephalic, atraumatic, no step-offs or deformities Eyes: Pupils equal, round and reactive to light.? ENT: Pharynx normal.? Neck: Normal inspection.? Neck supple.? CVS: Normal heart rate and rhythm.? Pulses normal.? Respiratory: No respiratory distress.? Breath sounds normal.? Abdomen: Soft and nontender.? Skin: Skin warm and dry.? Normal skin color.? Normal skin turgor.? Extremities: No lower extremity edema.? No calf ttp. 5/5 strength to bilateral upper and lower extremities Back: No midline tenderness, no C-spine tenderness, full range of motion, no CVA tenderness bilaterally Neuro: Oriented X 3.? No motor deficit.? No sensory deficit. CN 2-12 intact . Normal [id number], pkys-vx-niab, steady tandem gait. Course Reevaluation(s) Reevaluation #1: slight leukocytosis, platelets noted to be elevated however this appears to be patient's baseline. No acute electrolyte abnormalities requiring intervention. Patient's troponin less than 3.5 Patient's EKG shows sinus tachycardia, no signs of acute ischemia. Unlikely that this is ACS Time: 16:01 Reevaluation #2: Second troponin negative. EKG nonischemic. Patient's blood pressure improved after amlodipine and IV labetalol. At this time patient will be admitted to the hospitalist team for observation. Time: 22:27 MDM - Chest Pain MDM Narrative Medical decision making narrative: 1600 60-year-old female presents with chest pain, headache, hypertension x2 days. Upon further questioning patient also tells me that she recently had medication changes, patient was previously taking nifedipine, losartan and hydrochlorothiazide. However she is only taking losartan at this time. Upon my initial examination patient was noted to be significantly hypertensive therefore IV labetalol was ordered. Physical examination benign. Normal cerebellar function. Plan at this time is head CT, labs, urine, Trop , EKG will rule out ACS, intracranial hemorrhage. Unlikely that this is a CVA or posterior infarct. Heart score of 5 Medical Records Data Attestation: I reviewed the patient's medical records. Lab Data Attestation: I reviewed the patient's lab results. Result diagrams: 10/03/21 14:40 10/03/21 14:40 Labs: Lab Results 10/03/21 10/03/21 10/03/21 Range/Units 14:40 14:40 14:40 WBC 11.1 H (4.8-10.8) X10*3/uL RBC 4.45 (4.20-5.50) X10*6/uL Hgb 12.5 (12.0-16.0) g/dl Hct 37.1 (37.0-47.0) % MCV 83.4 (80.0-98.0) fL MCH 28.1 (27.0-33.0) pg MCHC 33.7 (31.0-35.0) g/dl RDW 12.0 (11.0-16.0) % Plt Count 452 H (160-400) X10*3/uL MPV 8.9 L (9.4-12.3) fL Immature Gran % (Auto) 0.2 (0.0-0.4) % Neut % (Auto) 62.4 (45-73) % Lymph % (Auto) 27.0 (20-40) % [place] % (Auto) 7.7 (2-11) % Eos % (Auto) 2.3 (0-4) % Baso % (Auto) 0.4 (0-2) % Lymph # (Auto) 3.0 (1.2-4.9) X10*3/uL [place] # (Auto) 0.9 (0.1-1.2) X10*3/uL Eos # (Auto) 0.3 (0.0-0.4) X10*3/uL Baso # (Auto) 0.0 (0.0-0.2) X10*3/uL Abs Immat Gran (auto) 0.02 (0.00-0.03) X10*3/uL Absolute Neuts (auto) 6.9 (2.0-8.3) x10*3/uL Absolute Nucleated RBC 0.000 (0.0-0.012) X10*3/uL Nucleated RBC % (auto) 0.0 (0.0-0.2) /100WBC Sodium 138 (135-145) mmol/L Potassium 3.9 (3.3-5.1) mmol/L Chloride 101 (96-108) mmol/L Carbon Dioxide 28 (22-29) mmol/L Anion Gap 13 (12-20) BUN 9 (9-16) mg/dL Creatinine 0.80 (0.5-1.4) mg/dL Estim Creat Clear Calc 65.2 Estimated GFR > 60 POC Glucose (60-115) mg/dL Random Glucose 233 H (60-115) mg/dL Calcium 9.2 (8.4-10.2) mg/dL Troponin I High Sens < 3.5 (<3.5-17.0) ng/L Urine Color Urine Appearance Urine pH (5.0-8.0) Ur Specific [place] (1.005-1.025) Urine Protein (NEG-TRACE) MG/DL Urine Glucose (UA) (NEG) MG/DL Urine Ketones (NEG) MG/DL Urine Blood (NEG) Urine Nitrite (NEG) Ur Leukocyte Esterase (NEG) Urine RBC (0) /HPF Urine WBC (0-4) /HPF Ur Squamous Epith Cells /LPF Amorphous Sediment /LPF Urine Bacteria /LPF 10/03/21 10/03/21 10/03/21 Range/Units 18:12 18:15 22:12 WBC (4.8-10.8) X10*3/uL RBC (4.20-5.50) X10*6/uL Hgb (12.0-16.0) g/dl Hct (37.0-47.0) % MCV (80.0-98.0) fL MCH (27.0-33.0) pg MCHC (31.0-35.0) g/dl RDW (11.0-16.0) % Plt Count (160-400) X10*3/uL MPV (9.4-12.3) fL Immature Gran % (Auto) (0.0-0.4) % Neut % (Auto) (45-73) % Lymph % (Auto) (20-40) % [place] % (Auto) (2-11) % Eos % (Auto) (0-4) % Baso % (Auto) (0-2) % Lymph # (Auto) (1.2-4.9) X10*3/uL [place] # (Auto) (0.1-1.2) X10*3/uL Eos # (Auto) (0.0-0.4) X10*3/uL Baso # (Auto) (0.0-0.2) X10*3/uL Abs Immat Gran (auto) (0.00-0.03) X10*3/uL Absolute Neuts (auto) (2.0-8.3) x10*3/uL Absolute Nucleated RBC (0.0-0.012) X10*3/uL Nucleated RBC % (auto) (0.0-0.2) /100WBC Sodium (135-145) mmol/L Potassium (3.3-5.1) mmol/L Chloride (96-108) mmol/L Carbon Dioxide (22-29) mmol/L Anion Gap (12-20) BUN (9-16) mg/dL Creatinine (0.5-1.4) mg/dL Estim Creat Clear Calc Estimated GFR POC Glucose 255 H (60-115) mg/dL Random Glucose (60-115) mg/dL Calcium (8.4-10.2) mg/dL Troponin I High Sens < 3.5 (<3.5-17.0) ng/L Urine Color STRAW Urine Appearance CLEAR Urine pH 7.5 (5.0-8.0) Ur Specific [place] 1.010 (1.005-1.025) Urine Protein TRACE (NEG-TRACE) MG/DL Urine Glucose (UA) 100 H (NEG) MG/DL Urine Ketones NEG (NEG) MG/DL Urine Blood NEG (NEG) Urine Nitrite NEG (NEG) Ur Leukocyte Esterase TRACE H (NEG) Urine RBC 0-2 (0) /HPF Urine WBC 1-4 (0-4) /HPF Ur Squamous Epith Cells 1+ /LPF Amorphous Sediment TRACE /LPF Urine Bacteria NONE /LPF Critical Care Time Critical Care Time Critical Care Time: No Discharge Plan Discharge Clinical Impression: Hypertensive urgency, Chest pain Patient Disposition: Admitted As Inpatient Prescriptions: No Action (DME) pen needle, diabetic [Pen Needle] 31 gauge x 1/4 needle See Rx Instructions .Route Qty: 100 3RF Rx Instructions: As directed daily (DME) lancets [OneTouch UltraSoft Lancets] Misc See Rx Instructions .Route Qty: 200 0RF Rx Instructions: test 3x day hydrochlorothiazide 12.5 mg tablet 12.5 mg PO DAILY Qty: 30 0RF diclofenac sodium [Arthritis Pain (diclofenac)] 1 % gel 2 g topical QID 14 Days Qty: 100 0RF Rx Instructions: apply to single elbow, wrist or hand; for hand includes palm/fingers/back of hand losartan 100 mg tablet 100 mg PO DAILY Qty: 30 3RF atorvastatin 80 mg tablet 80 mg PO BEDTIME Qty: 30 3RF aspirin 81 mg tablet,chewable 81 mg PO DAILY Qty: 30 3RF glimepiride 4 mg tablet 4 mg PO QAM Qty: 30 0RF gabapentin 400 mg capsule 400 mg PO BID Qty: 90 0RF alcohol swabs [Alcohol Pads] Pads, Medicated 1 pad topical DAILY 30 Days 0RF potassium chloride 10 mEq tablet,ER particles/crystals 10 meq PO TID clopidogrel 75 mg Tablet 75 mg PO DAILY Qty: 30 0RF nifedipine 30 mg tablet extended release 30 mg PO DAILY Qty: 30 0RF fluoxetine 20 mg capsule 20 mg PO DAILY zolpidem 10 mg tablet 10 mg PO BEDTIME lorazepam 0.5 mg tablet 0.5 mg PO PRN (Reason: Anxiety) (DME) blood sugar diagnostic Strip See Rx Instructions .Route Rx Instructions: As directed- 3 times daily (DME) BLOOD PRESSURE MONITOR See Rx Instructions .Route .MEDSUPPLY Qty: 1 0RF Rx Instructions: As directed bupropion HCl 150 mg tablet extended release 24 hr 150 mg PO BEDTIME Lantus Solostar U-100 Insulin 100 unit/mL (3 mL) insulin pen 20 unit subcut BEDTIME 30 Days Qty: 6 5RF Trulicity 1.5 mg/0.5 mL pen injector 0.75 mg subcut TH@0900 28 Days Qty: 1 5RF fluticasone propionate [Flonase Allergy Relief] 50 mcg/actuation spray,suspension 1 spray intranasal DAILY Qty: 100 0RF Rx Instructions: administer into each nostril
[2021-10-03] MEDS: Ketorolac Tromethamine 15 MG/ML VIAL 30 MG IVPUSH (18:04)
[2021-10-03 18:22] LABS: Appearance Urine CLEAR; Color Urine STRAW; Glucose Urine UA 100 MG/DL (NEG); Leukocyte Esterase Urine TRACE (NEG); Nitrite Urine NEG (NEG); PH 7.5 (5.0-8.0); Urine Blood NEG (NEG); Urine Ketones NEG (NEG); Urine Protein TRACE MG/DL (NEG-TRACE)
[2021-10-03 18:31] LABS: Squamous Epithelial Cell Urine 1+ /LPF
[2021-10-03 18:32] LABS: RBC Urine 0-2 /HPF (0)
[2021-10-03 18:33] LABS: Amorphous Sediment Urine TRACE /LPF
[2021-10-03 18:39] LABS: Troponin-I High Sensitivity < 3.5 ng/L (<3.5-17.0)
[2021-10-03 22:16] LABS: Glucose, Whole Blood 255 mg/dL (60-115)
--- NOTE | 2021-10-03 22:30 | PM.IMHP ---
History of Present Illness Date of Service: 10/03/21 Chief Complaint: Chest pain/headache 60-year-old female with a past medical history of hypertension, hyperlipidemia, diabetes, history of thalamic stroke, anxiety, depression presented to the hospital today with a chief complaint of chest pain/headaches. Patient reports that for the past 1 day she has been having headaches, located on the left side of the head, throbbing, no associated blurry vision. Denies any numbness tingling or focal weakness. Patient also reports having chest pain located on the left side of the chest with intermittent radiation to the left arm; denies any associated nausea vomiting or diaphoresis. Denies any recent travel or sick contacts. Denies any GI symptoms. Patient mentioned that after she left the hospital she was given new prescription for nifedipine, Plavix. And she was taking nifedipine, Plavix, losartan, hydrochlorothiazide altogether in the morning and had dizzy episodes. When she saw her PCP and noted her blood pressure to be on the lower side and start her nifedipine and hydrochlorothiazide. Patient also start taking Plavix. Over the past day she has been not feeling well and when she checked her blood pressure it was noted to be 210/110; subsequently she called her PCP who suggested her to go to the ER for further evaluation. Patient also developed headache and chest pressure. Which resolved at the time of my interview. Denied any numbness tingling or focal weakness. Review of all other systems is negative except mentioned above ER course: Per ER team patient on presentation noted to have elevated blood pressure with systolic in 200 and 30s. Patient was given IV labetalol followed by amlodipine p.o.. Blood pressure improved from systolic 230s to 157. CT head showed no acute findings. EKG was nonischemic; troponins x2 negative; chest pain improved after IV pain medication. Reported that patient was supposed to be on losartan, nifedipine, hydrochlorothiazide-patient was discontinued on nifedipine and hydrochlorothiazide as outpatient and only taking losartan currently for blood pressure. Likely contributing to her elevated blood pressures. Admitted for further management [facility] Medical History Sciatic pain Family History Father Suicide Epilepsy Mother Poor high blood pressure control Diabetes Hypertension Daughter Spina bifida Brother Stroke Other Mental health problem Surgical History H/O bilateral breast reduction surgery History of appendectomy History of carpal tunnel release History of section History of hysterectomy History of left salpingo-oophorectomy Social History Household Members: Significant Other Housing: Apartment Do you presently have visiting nurse or other home services: No Alcohol intake: never Patient Tobacco Use Status: Never used Tobacco e-Cigarette/Vaping Use: Never Used Second Hand Smoke Exposure: Yes Use of substances other than those prescribed or required for medical reasons: No Have you been hit, kicked, punched, or otherwise hurt by someone within the past year? If so, by whom?: No Do you feel safe in your current relationship?: Yes Is there a partner from a previous relationship who is making you feel unsafe now?: No Are you made to feel afraid or neglected: No Advance Directives: No Advance Directives Information Provided: No Do you have thoughts of harming others: None Do you have a plan to hurt others: No Plan Recently lost weight without trying: No Eating poorly because of decreased appetite: No Nutrition Risks: No Nutritional Risk Patient : No : No Poor oral hygiene: No service: No Current occupational status: disabled Cognitive needs: Yes (cane) Hearing needs: No Vision needs: Yes (glasses) Meds Allergies Allergy/AdvReac Type Severity Reaction Status Date / Time ibuprofen [From Motrin] Allergy Mild STOMACH Verified 09/15/21 16:06 UPSET oxycodone [From Percocet] Allergy Mild ITCHING Verified 09/15/21 16:06 lactose [LACTOSE] Allergy Unknown ABD PAIN Verified 09/15/21 16:06 metformin AdvReac Unknown nausea, Verified 09/15/21 16:06 somnolence amlodipine AdvReac Swelling Verified 10/03/21 22:36 Active Medications: Current Medications Acetaminophen (Acetaminophen 325 Mg Tablet) 650 mg PO Q6H PRN PRN Reason: Pain, Mild (Pain Scale 1-3) Dextrose (Dextrose 50 % 25 Gm/50 Ml Syringe) 25 gm IVPUSH Q15M PRN; Protocol PRN Reason: per Hypoglycemia Standing Ord. Glucose (Glucose Gel 15 Gm Gel..Gram.) 15 gm PO Q15M PRN; Protocol PRN Reason: per Hypoglycemia Standing Ord. Heparin Sodium (Porcine) (Heparin Sodium,Porcine 5,000 Unit/Ml Vial) 5,000 unit SUBCUT Q8H CHRIS Insulin Human Lispro (Insulin Lispro 100 Unit/Ml 3 Ml Vial) 0 unit SUBCUT QIDACHS [facility]; Protocol Melatonin (Melatonin 3 Mg Tablet) 6 mg PO BEDTIME PRN PRN Reason: Insomnia Nitroglycerin (Nitroglycerin 0.4 Mg Tab.Subl) 0.4 mg SUBLINGUAL Q5MX3 PRN PRN Reason: Chest Pain Pharmacy Consult (Consult Rx Perform Med Rec) 1 each MISCELLANE ONCE PRN PRN Reason: Consult order Sodium Chloride (0.9 % Sodium Chloride Flush 3 Ml Syringe) 3 ml IVFLUSH QSHIFT [facility] Home Medications Medication Instructions Recorded Confirmed Last Taken Type blood sugar diagnostic 11/12/20 09/15/21 06/05/21 History fluoxetine 20 mg capsule 20 mg PO DAILY 11/12/20 10/03/21 10/03/21 History lorazepam 0.5 mg tablet 0.5 mg PO PRN Anxiety 11/12/20 09/15/21 10/02/21 History zolpidem 10 mg tablet 10 mg PO BEDTIME 11/12/20 10/03/21 10/02/21 History potassium chloride 10 mEq 10 meq PO TID 06/06/21 10/03/21 10/03/21 History tablet,extended release(part/cryst) bupropion HCl 150 mg 24 hr tablet, 150 mg PO BEDTIME 07/25/21 09/15/21 Unknown History extended release Physical Exam Vital Signs and Narrative: Vital Signs: Last Vital Signs Temp 98.2 F 10/03/21 14:25 Pulse 79 10/03/21 22:16 Resp 20 10/03/21 14:25 BP 157/79 H 10/03/21 22:16 Pulse Ox 95 10/03/21 14:25 O2 Del Method 10/03/21 14:25 BMI result Body Mass Index 31.8 Gen: Appears be in no acute distress HEENT: NCAT, Moist mucosa. No temporal tenderness noted. Pulmonary: Vesicular breath sounds, fair air entry CVS: Normal S1-S2 Abdomen: BS+, Soft, Nontender Extremities: Warm well perfused Neuro: Alert and awake. Grossly nonfocal; Results Labs CBC and Chem 7: 10/03/21 14:40 10/03/21 14:40 Labs: Laboratory Results - last 24 hr 10/03/21 10/03/21 10/03/21 14:40 14:40 14:40 MCV 83.4 MCH 28.1 MCHC 33.7 RDW 12.0 Plt Count 452 H MPV 8.9 L Immature Gran % (Auto) 0.2 Neut % (Auto) 62.4 Lymph % (Auto) 27.0 Saline % (Auto) 7.7 Eos % (Auto) 2.3 Baso % (Auto) 0.4 Lymph # (Auto) 3.0 Saline # (Auto) 0.9 Eos # (Auto) 0.3 Baso # (Auto) 0.0 Abs Immat Gran (auto) 0.02 Absolute Neuts (auto) 6.9 Absolute Nucleated RBC 0.000 Nucleated RBC % (auto) 0.0 Anion Gap 13 Estim Creat Clear Calc 65.2 Estimated GFR > 60 POC Glucose Random Glucose 233 H Calcium 9.2 Troponin I High Sens < 3.5 Urine Color Urine Appearance Urine pH Ur Specific [place] Urine Protein Urine Glucose (UA) Urine Ketones Urine Blood Urine Nitrite Ur Leukocyte Esterase Urine RBC Urine WBC Ur Squamous Epith Cells Amorphous Sediment Urine Bacteria 10/03/21 10/03/21 10/03/21 18:12 18:15 22:12 MCV MCH MCHC RDW Plt Count MPV Immature Gran % (Auto) Neut % (Auto) Lymph % (Auto) Saline % (Auto) Eos % (Auto) Baso % (Auto) Lymph # (Auto) Saline # (Auto) Eos # (Auto) Baso # (Auto) Abs Immat Gran (auto) Absolute Neuts (auto) Absolute Nucleated RBC Nucleated RBC % (auto) Anion Gap Estim Creat Clear Calc Estimated GFR POC Glucose 255 H Random Glucose Calcium Troponin I High Sens < 3.5 Urine Color STRAW Urine Appearance CLEAR Urine pH 7.5 Ur Specific [place] 1.010 Urine Protein TRACE Urine Glucose (UA) 100 H Urine Ketones NEG Urine Blood NEG Urine Nitrite NEG Ur Leukocyte Esterase TRACE H Urine RBC 0-2 Urine WBC 1-4 Ur Squamous Epith Cells 1+ Amorphous Sediment TRACE Urine Bacteria NONE Imaging Radiologist's Impressions: Impressions Head CT 10/03/21 16:27 IMPRESSION: No CT evidence of intracranial space-occupying mass, bleed or infarct. Near complete opacification of left maxillary sinus probably a retention cyst. Normal CT scan does not rule out the possibility of hyperacute infarct in the first 12 hours. If patient symptoms persist may consider correlation with MRI, which is more sensitive for early acute infarct. Assessment and Plan (1) Hypertensive urgency: Status: Acute (2) Chest pain: Status: Acute Plan 60-year-old female with a past medical history of hypertension, hyperlipidemia, diabetes, history of thalamic stroke, anxiety, depression presented to the hospital today with a chief complaint of chest pain/headaches. Admitted for following Headaches: Currently improved. Nonfocal examination. CT head showed no acute findings. ESR 39, As patient noted to have left worship mild discomfort. Chest pain: Currently resolved. EKG nonischemic. Troponins x2 negative. Patient has high heart score; Cardiology follow-up. Hypertensive urgency: Patient systolic blood pressure on presentation was in 230s. Improved to 157 systolic after labetalol x1 in the ER. Reportedly patient was stopped and nifedipine, hydrochlorothiazide as of outpatient. Continue losartan Will add hydrochlorothiazide 25 mg Patient denying calcium channel blockers-attributes to ankle swelling. Patient received amlodipine 10 mg in the ER. History of diabetes: Hold home diabetic regimen. Insulin sliding scale for now. History of anxiety/depression: Continue home Ativan/bupropion History of thalamic stroke: Continue home aspirin Plavix, statin. DVT prophylaxis: Subcu heparin Code status: Full code Quality Stroke Does the patient have a stroke diagnosis?: No VTE Prior VTE?: No VTE Risk Level:: Medical - moderate - high VTE Device Contraindication: Treatment Not Indicated VTE Drug Contraindication: N/A - Med Ordered
[2021-10-03] MEDS: Heparin Sodium,Porcine 5,000 UNIT/ML VIAL 5000 UNIT SUBCUT (22:44)
--- NOTE | 2021-10-03 22:56 | PC.NURSE ---
Attempted to give report Per Employee Representative, RN is taking report from other nurse and call back in 10 minutes
[2021-10-03 22:58] LABS: C Reactive Protein 1.81 mg/dL (< or = 0.50)
[2021-10-03] MEDS: amLODIPine Besylate 5 MG TABLET PO (23:01)
[2021-10-03 23:25] LABS: COVID-19 Test Negative (Negative); IDNOW Serial# 55D5AD1C
[2021-10-03 23:41] LABS: Erythrocyte Sedimentation Rate 39 MM/HR (0-20)
[2021-10-04] VITALS (10 sets, daily range): BP systolic 111–207; BP diastolic 57–92; PULSE 84–98; RESP 12–18; TEMP 36.3–36.9; O2SAT 94–98; BMI 33.0
[2021-10-04] MEDS: Zolpidem Tartrate 5 MG TABLET PO ×2 (01:29→20:10)
[2021-10-04] MEDS: Atorvastatin Calcium 80 MG TABLET PO ×2 (01:29→20:10)
[2021-10-04] MEDS: 0.9 % Sodium Chloride Flush 3 ML SYRINGE IVFLUSH ×4 (01:32→23:55)
[2021-10-04] MEDS: diphenhydrAMINE HCL 50 MG/ML VIAL 25 MG IVPUSH (02:45)
[2021-10-04] MEDS: Heparin Sodium,Porcine 5,000 UNIT/ML VIAL 5000 UNIT SUBCUT ×3 (05:47→21:24)
[2021-10-04 06:34] LABS: MANUAL DIFF FLAG NO
[2021-10-04 06:38] LABS: Basophils Percent Auto 0.2 % (0-2); Eosinophils Absolute Auto 0.2 X10*3/uL (0.0-0.4); Eosinophils Percent Auto 2.2 % (0-4); Hematocrit 33.3 % (37.0-47.0); Hemoglobin 10.7 g/dl (12.0-16.0); Imm Gran Abs Auto 0.03 X10*3/uL (0.00-0.03); Imm Gran Pct Auto 0.3 % (0.0-0.4); Lymphocytes Absolute Auto 2.7 X10*3/uL (1.2-4.9); Lymphocytes Percent Auto 25.3 % (20-40); Mean Corpuscular HGB Conc 32.1 g/dl (31.0-35.0); Mean Corpuscular Hemoglobin 27.4 pg (27.0-33.0); Mean Corpuscular Volume 85.2 fL (80.0-98.0); Mean Platelet Volume 9.1 fL (9.4-12.3); Monocytes Absolute Auto 0.8 X10*3/uL (0.1-1.2); Monocytes Percent Auto 7.6 % (2-11); Neutrophils Absolute Auto 6.8 x10*3/uL (2.0-8.3); Neutrophils Percent Auto 64.4 % (45-73); Platelet Count 392 X10*3/uL (160-400); Red Blood Count 3.91 X10*6/uL (4.20-5.50); Red Cell Distribution Width 12.1 % (11.0-16.0); White Blood Count 10.5 X10*3/uL (4.8-10.8)
[2021-10-04 07:02] LABS: Anion Gap 11 (12-20); Blood Urea Nitrogen 14 mg/dL (9-16); Calcium 9.1 mg/dL (8.4-10.2); Carbon Dioxide 28 mmol/L (22-29); Chloride 101 mmol/L (96-108); Creatinine Clr Calc Pharmacy 51.6; Estimated Glomerular Filt Rate 55; Glucose Random 310 mg/dL (60-115); Potassium 4.2 mmol/L (3.3-5.1); Sodium 136 mmol/L (135-145)
--- NOTE | 2021-10-04 07:28 | PHA.MEDREC ---
Pharmacy Consult ? Medication Reconciliation Pharmacy has reviewed the medication reconciliation complete by Jose. Removed unconfirmed medications that have not been filled recently and reported by the patient. Eli Flynn, DestinyD
[2021-10-04 07:44] LABS: Glucose, Whole Blood 257 mg/dL (60-115)
[2021-10-04] MEDS: NIFEdipine ER 30 MG TAB.ER.24 PO (08:58)
[2021-10-04] MEDS: Losartan Potassium 50 MG TABLET 100 MG PO (08:58)
[2021-10-04] MEDS: Gabapentin 400 MG CAPSULE PO ×2 (08:59→20:10)
[2021-10-04] MEDS: Aspirin 81 MG TAB.CHEW PO (08:59)
[2021-10-04] MEDS: Insulin Lispro 100 UNIT/ML 3 ML VIAL SUBCUT ×4 (09:01→20:10)
--- NOTE | 2021-10-04 10:17 | PM.CNCAR ---
History of Present Illness History of Present Illness Date of Service: 10/04/21 Requesting physician: Maria Victoria Reina Consult reason: chest pain and other (Hypertensive urgency) Chief complaint: chest pain Narrative: I was consulted to see Britt in cardiology consultation today for chest discomfort and hypertensive urgency. She is a 60-year-old woman with longstanding history of hypertension has been difficult control with very labile blood pressures outpatient as well as prior CVA, longstanding diabetes. Patient with prior CVAs, 1 in November last year with right thalamic stroke and followed by in this May this year with left thalamic with persistent mild speech difficulty and some weakness in the right lower extremity still present. She would be started on Plavix since then. She is noted to have significant intracranial stenosis by the last CTA. Her echocardiogram showed no evidence of intracardiac stenting with normal LV systolic function with mild LVH. She has significant issues with hypertension both time she had a stroke she had issues with high blood pressure. Since May then she was started on medications for high blood pressure but after a month of treatment she started noticing symptoms of feeling weak and low blood pressure and her hydrochlorothiazide and nifedipine was supposedly stop. She was only on losartan therapy at this point time. She said over the weekend she was in general good health and was relax. However she has been noting for the last week that her head was hurting. She had noted her blood pressure to be in the 170 range. Yesterday she start any chest pain and interscapular pain and with numbness in her left arm and she got concerned and she was not feeling well and she came to the emergency room where she was noted to have marked hypertension with systolic blood pressure up to 40 and diastolic up to 113. She was then treated for hypertensive urgency. Her troponins are negative. EKG is not significantly abnormal suggestive of acute myocardial ischemia. After treating a blood pressure in improving her blood pressure her headache and chest pain syndrome have improved. Her she is worried because of her markedly labile blood pressure difficult control of blood pressure at this point in time. Review of Systems Constitutional: Constitutional: Reports no additional constitutional complaints and Reports headache(s) Eyes: Eyes: Reports no additional eye complaints ENT: Reports headache(s) Cardiovascular: Cardiovascular: Reports chest pain, Denies leg edema, Reports lightheadedness, Denies Loss of Consciousness, Denies palpitations and Denies dyspnea Respiratory: Respiratory: Reports no additional respiratory complaints and Denies dyspnea Gastrointestinal: Gastrointestinal: Reports no additional gastrointestinal complaints Genitourinary: Genitourinary: Reports no additional female genitourinary complaints Musculoskeletal: Musculoskeletal: Reports no additional musculoskeletal complaints Neurologic: Reports headache(s) Psychiatric: Psychiatric: Reports no additional psychiatric complaints Endocrine: Endocrine: Reports no additional endocrine complaints and Denies palpitations Hematologic/Lymphatic: Hematologic/Lymphatic: Reports no additional hematologic/lymphatic complaints Allergic/Immunologic: Allergic/Immunologic: Reports no additional allergic/immunologic complaints PMFSH Past Medical History Medical History CVA (cerebral vascular accident) Diabetes HTN (hypertension) Intracranial vascular stenosis Sciatic pain Family History Family History Father Suicide Epilepsy Mother Poor high blood pressure control Diabetes Hypertension Daughter Spina bifida Brother Stroke Other Mental health problem Surgical History Surgical History H/O bilateral breast reduction surgery History of appendectomy History of carpal tunnel release History of section History of hysterectomy History of left salpingo-oophorectomy Social History Social History Household Members: Significant Other Housing: Apartment Do you presently have visiting nurse or other home services: No Alcohol intake: never Patient Tobacco Use Status: Never used Tobacco e-Cigarette/Vaping Use: Never Used Second Hand Smoke Exposure: Yes Use of substances other than those prescribed or required for medical reasons: No Have you been hit, kicked, punched, or otherwise hurt by someone within the past year? If so, by whom?: No Do you feel safe in your current relationship?: Yes Is there a partner from a previous relationship who is making you feel unsafe now?: No Are you made to feel afraid or neglected: No Advance Directives: No Advance Directives Information Provided: No Do you have thoughts of harming others: None Do you have a plan to hurt others: No Plan Recently lost weight without trying: No Eating poorly because of decreased appetite: No Nutrition Risks: No Nutritional Risk Patient : No : No Poor oral hygiene: No service: No Current occupational status: disabled Cognitive needs: Yes (cane) Hearing needs: No Vision needs: Yes (glasses) Meds Allergies Allergy/AdvReac Type Severity Reaction Status Date / Time ibuprofen [From Motrin] Allergy Mild STOMACH Verified 09/15/21 16:06 UPSET oxycodone [From Percocet] Allergy Mild ITCHING Verified 09/15/21 16:06 lactose [LACTOSE] Allergy Unknown ABD PAIN Verified 09/15/21 16:06 metformin AdvReac Unknown nausea, Verified 09/15/21 16:06 somnolence amlodipine AdvReac Swelling Verified 10/03/21 22:36 Active Medications: Current Medications Acetaminophen (Acetaminophen 325 Mg Tablet) 650 mg PO Q6H PRN PRN Reason: Pain, Mild (Pain Scale 1-3) Aspirin (Aspirin 81 Mg Tab.Chew) 81 mg PO DAILY [facility] Last Admin: 10/04/21 08:59 Dose: 81 mg Atorvastatin Calcium (Atorvastatin Calcium 80 Mg Tablet) 80 mg PO BEDTIME [facility] Last Admin: 10/04/21 01:29 Dose: 80 mg Dextrose (Dextrose 50 % 25 Gm/50 Ml Syringe) 25 gm IVPUSH Q15M PRN; Protocol PRN Reason: per Hypoglycemia Standing Ord. Gabapentin (Gabapentin 400 Mg Capsule) 400 mg PO BID [facility] Last Admin: 10/04/21 08:59 Dose: 400 mg Glucose (Glucose Gel 15 Gm Gel..Gram.) 15 gm PO Q15M PRN; Protocol PRN Reason: per Hypoglycemia Standing Ord. Heparin Sodium (Porcine) (Heparin Sodium,Porcine 5,000 Unit/Ml Vial) 5,000 unit SUBCUT Q8H [facility] Last Admin: 10/04/21 05:47 Dose: 5,000 unit Insulin Human Lispro (Insulin Lispro 100 Unit/Ml 3 Ml Vial) 0 unit SUBCUT QIDACHS [facility]; Protocol Last Admin: 10/04/21 09:01 Dose: 6 unit Labetalol HCl (Labetalol Hcl 20 Mg/4 Ml Syringe) 10 mg IVPUSH Q4H PRN PRN Reason: BP>170/90 Losartan Potassium (Losartan Potassium 50 Mg Tablet) 100 mg PO DAILY [facility]; Protocol Last Admin: 10/04/21 08:58 Dose: 100 mg Melatonin (Melatonin 3 Mg Tablet) 6 mg PO BEDTIME PRN PRN Reason: Insomnia Nifedipine (Nifedipine Er 30 Mg Tab.Er.24) 30 mg PO DAILY [facility]; Protocol Last Admin: 10/04/21 08:58 Dose: 30 mg Nitroglycerin (Nitroglycerin 0.4 Mg Tab.Subl) 0.4 mg SUBLINGUAL Q5MX3 PRN PRN Reason: Chest Pain Sodium Chloride (0.9 % Sodium Chloride Flush 3 Ml Syringe) 3 ml IVFLUSH QSHIFT [facility] Last Admin: 10/04/21 09:00 Dose: 3 ml Zolpidem Tartrate (Zolpidem Tartrate 5 Mg Tablet) 5 mg PO BEDTIME [facility] Last Admin: 10/04/21 01:29 Dose: 5 mg Home Medications Medication Instructions Recorded Confirmed Last Taken Type blood sugar diagnostic 11/12/20 09/15/21 06/05/21 History fluoxetine 20 mg capsule 20 mg PO DAILY 11/12/20 10/03/21 10/03/21 History lorazepam 0.5 mg tablet 0.5 mg PO DAILY PRN Anxiety 11/12/20 10/04/21 10/02/21 History zolpidem 10 mg tablet 10 mg PO BEDTIME 11/12/20 10/03/21 10/02/21 History potassium chloride 10 mEq 10 meq PO TID 06/06/21 10/03/21 10/03/21 History tablet,extended release(part/cryst) fluticasone propionate 50 1 spray intranasal DAILY PRN 10/04/21 10/04/21 Unknown History mcg/actuation nasal Allergy Symptoms spray,suspension (Flonase Allergy Relief) Physical Exam Vital Signs: Vital Signs: Last Vital Signs Temp 98.3 F 10/04/21 07:24 Pulse 84 10/04/21 07:24 Resp 12 10/04/21 07:24 BP 140/80 H 10/04/21 07:24 Pulse Ox 98 10/04/21 07:24 O2 Del Method 10/04/21 07:24 BMI result Body Mass Index 33.0 Const: General: cooperative, comfortable, no acute distress, alert and awake Nutritional Appearance: obese Orientation/consciousness: patient oriented x3 Limitations: no limitations HEENT: Head: Yes normocephalic and Yes atraumatic Neck: Neck: Yes trachea midline, Yes supple and Yes no JVD Chest: Chest palpation & inspection: normal inspection of the chest Resp: Effort & Inspection: normal respiratory effort Auscultation: clear to auscultation bilaterally Cardio: Jugular venous distension: no JVD Palpation: normal PMI Rate: regular rate Rhythm: regular rhythm Heart sounds: S1 normal heart sound present, S2 normal heart sound present, no click, no gallops and no murmurs GI: Inspection: Yes obesity Auscultation: normal bowel sounds Skin: General skin exam: no rashes or lesions noted Neuro: General: patient oriented x3 and no focal motor deficits Extrem: General: Yes no clubbing, cyanosis or edema Objective Labs and Meds Result diagrams: 10/04/21 06:21 10/04/21 06:21 Lab results: Laboratory Results - last 24 hr 10/03/21 10/03/21 10/03/21 14:40 14:40 14:40 WBC 11.1 H RBC 4.45 Hgb 12.5 Hct 37.1 MCV 83.4 MCH 28.1 MCHC 33.7 RDW 12.0 Plt Count 452 H MPV 8.9 L Immature Gran % (Auto) 0.2 Neut % (Auto) 62.4 Lymph % (Auto) 27.0 [place] % (Auto) 7.7 Eos % (Auto) 2.3 Baso % (Auto) 0.4 Lymph # (Auto) 3.0 [place] # (Auto) 0.9 Eos # (Auto) 0.3 Baso # (Auto) 0.0 Abs Immat Gran (auto) 0.02 Absolute Neuts (auto) 6.9 Absolute Nucleated RBC 0.000 Nucleated RBC % (auto) 0.0 ESR Sodium 138 Potassium 3.9 Chloride 101 Carbon Dioxide 28 Anion Gap 13 BUN 9 Creatinine 0.80 Estim Creat Clear Calc 65.2 Estimated GFR > 60 POC Glucose Random Glucose 233 H Calcium 9.2 Troponin I High Sens < 3.5 C-Reactive Protein Urine Color Urine Appearance Urine pH Ur Specific [place] Urine Protein Urine Glucose (UA) Urine Ketones Urine Blood Urine Nitrite Ur Leukocyte Esterase Urine RBC Urine WBC Ur Squamous Epith Cells Amorphous Sediment Urine Bacteria COVID-19 ([facility]) COVID-19 Clin Com 10/03/21 10/03/21 10/03/21 18:12 18:15 22:12 WBC RBC Hgb Hct MCV MCH MCHC RDW Plt Count MPV Immature Gran % (Auto) Neut % (Auto) Lymph % (Auto) [place] % (Auto) Eos % (Auto) Baso % (Auto) Lymph # (Auto) [place] # (Auto) Eos # (Auto) Baso # (Auto) Abs Immat Gran (auto) Absolute Neuts (auto) Absolute Nucleated RBC Nucleated RBC % (auto) ESR Sodium Potassium Chloride Carbon Dioxide Anion Gap BUN Creatinine Estim Creat Clear Calc Estimated GFR POC Glucose 255 H Random Glucose Calcium Troponin I High Sens < 3.5 C-Reactive Protein Urine Color STRAW Urine Appearance CLEAR Urine pH 7.5 Ur Specific [place] 1.010 Urine Protein TRACE Urine Glucose (UA) 100 H Urine Ketones NEG Urine Blood NEG Urine Nitrite NEG Ur Leukocyte Esterase TRACE H Urine RBC 0-2 Urine WBC 1-4 Ur Squamous Epith Cells 1+ Amorphous Sediment TRACE Urine Bacteria NONE COVID-19 ([facility]) COVID-19 Clin Com 10/03/21 10/03/21 10/03/21 22:40 22:40 22:53 WBC RBC Hgb Hct MCV MCH MCHC RDW Plt Count MPV Immature Gran % (Auto) Neut % (Auto) Lymph % (Auto) [place] % (Auto) Eos % (Auto) Baso % (Auto) Lymph # (Auto) [place] # (Auto) Eos # (Auto) Baso # (Auto) Abs Immat Gran (auto) Absolute Neuts (auto) Absolute Nucleated RBC Nucleated RBC % (auto) ESR 39 H Sodium Potassium Chloride Carbon Dioxide Anion Gap BUN Creatinine Estim Creat Clear Calc Estimated GFR POC Glucose Random Glucose Calcium Troponin I High Sens C-Reactive Protein 1.81 H Urine Color Urine Appearance Urine pH Ur Specific [place] Urine Protein Urine Glucose (UA) Urine Ketones Urine Blood Urine Nitrite Ur Leukocyte Esterase Urine RBC Urine WBC Ur Squamous Epith Cells Amorphous Sediment Urine Bacteria COVID-19 ([facility]EN) Negative COVID-19 Clin Com See Note 10/04/21 10/04/21 10/04/21 06:21 06:21 07:29 WBC 10.5 RBC 3.91 L Hgb 10.7 L Hct 33.3 L MCV 85.2 MCH 27.4 MCHC 32.1 RDW 12.1 Plt Count 392 MPV 9.1 L Immature Gran % (Auto) 0.3 Neut % (Auto) 64.4 Lymph % (Auto) 25.3 [place] % (Auto) 7.6 Eos % (Auto) 2.2 Baso % (Auto) 0.2 Lymph # (Auto) 2.7 [place] # (Auto) 0.8 Eos # (Auto) 0.2 Baso # (Auto) 0.0 Abs Immat Gran (auto) 0.03 Absolute Neuts (auto) 6.8 Absolute Nucleated RBC 0.000 Nucleated RBC % (auto) 0.0 ESR Sodium 136 Potassium 4.2 Chloride 101 Carbon Dioxide 28 Anion Gap 11 L BUN 14 D Creatinine 1.03 Estim Creat Clear Calc 51.6 Estimated GFR 55 POC Glucose 257 H Random Glucose 310 H Calcium 9.1 Troponin I High Sens C-Reactive Protein Urine Color Urine Appearance Urine pH Ur Specific [place] Urine Protein Urine Glucose (UA) Urine Ketones Urine Blood Urine Nitrite Ur Leukocyte Esterase Urine RBC Urine WBC Ur Squamous Epith Cells Amorphous Sediment Urine Bacteria COVID-19 ([facility]EN) COVID-19 Clin Com Imaging Radiologist's impression: Impressions Head CT 10/03/21 16:27 IMPRESSION: No CT evidence of intracranial space-occupying mass, bleed or infarct. Near complete opacification of left maxillary sinus probably a retention cyst. Normal CT scan does not rule out the possibility of hyperacute infarct in the first 12 hours. If patient symptoms persist may consider correlation with MRI, which is more sensitive for early acute infarct. Assessment and Plan (1) Hypertensive urgency: Status: Acute Hypertensive urgency with markedly labile blood pressure in this middle-aged woman with longstanding history of hypertension diabetes. Possibility include autonomic dysfunction related to diabetes, renovascular hypertension and or diffuse vascular disease. This will lead to difficulty in management in the future. A be very careful stopping any of her are hypertensive agents abruptly. For now she has responded well to nifedipine therapy in the past and agree with addition of nifedipine to her losartan. However I would stagger the medication and take 1 in the morning and 1 in the evening time. Will also add labetalol 100 mg b.i.d. to her regimen. Renal duplex should be requested. She is advised against salt loading which can acutely precipitated hypertensive urgency in patients like her. Workup for endocrine causes should be considered with metanephrine as well as cortisol and aldosterone levels. Importance of blood pressure control in the long run is discussed. Compliance with medication was discussed. She understands and agrees. 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 (2) Chest pain: Status: Acute Chest pain syndrome without evidence of acute coronary syndrome most likely related to hypertensive urgency. Could be due to subendocardial strain related hypertensive urgency although obstructive coronary artery disease also likely. Will follow-up as outpatient in pursue workup as outpatient. Patient can be discharged from cardiac perspective her blood pressure is adequately controlled. Will sign of the case and follow with her as outpatient. Thank you for allowing us to partake in the care Procedures Date of Service Date of Service: 10/04/21
[2021-10-04 11:32] LABS: Glucose, Whole Blood 300 mg/dL (60-115)
--- NOTE | 2021-10-04 12:05 | PM.EVENT ---
Event Note Date of Service: 10/04/21 Event Note: I was informed the patient had a run of
[2021-10-04] MEDS: Acetaminophen 325 MG TABLET 650 MG PO (12:13)
--- NOTE | 2021-10-04 12:20 | P.PNIM_ITS ---
Subjective Subjective Date of Service: 10/04/21 Interval History: Headache resolved Laying in bed, feels comfortable Denies any fever, chills or chest pain No reported other overnight events. Systemic review: No fever, chills or weakness No chest pain, palpitation No shortness of breath or coughing No abdominal pain, nausea or vomiting No urinary symptoms No any rash or wounds Physical Exam Vital Signs: Vital Signs: Last Vital Signs Temp 98.3 F 10/04/21 11:15 Pulse 85 10/04/21 11:15 Resp 12 10/04/21 11:15 BP 178/92 H 10/04/21 11:15 Pulse Ox 98 10/04/21 11:15 O2 Del Method 10/04/21 11:15 BMI result Body Mass Index 33.0 Const: Other: Constitutional : Alert, oriented, not in distress Neck : Normal inspection, Supple Cardiovascular : RRR, no JVP, no lower extremity edema Respiratory : fair bilateral air entry, no crackles, wheezes or rhonchi Gastrointestinal: soft, lax, Normal bowel sounds, Non tender Skin : Warm, Dry Neurological : Alert & oriented x3, No focal deficit , CN 2-12 within normal Objective Data Active Medications Acetaminophen (Acetaminophen 325 Mg Tablet) 650 mg PO Q6H PRN PRN Reason: Pain, Mild (Pain Scale 1-3) Last Admin: 10/04/21 12:13 Dose: 650 mg Documented By: JONNY Aspirin (Aspirin 81 Mg Tab.Chew) 81 mg PO DAILY [facility] Last Admin: 10/04/21 08:59 Dose: 81 mg Documented By: JONNY Atorvastatin Calcium (Atorvastatin Calcium 80 Mg Tablet) 80 mg PO BEDTIME [facility] Last Admin: 10/04/21 01:29 Dose: 80 mg Documented By: BECKY Dextrose (Dextrose 50 % 25 Gm/50 Ml Syringe) 25 gm IVPUSH Q15M PRN; Protocol PRN Reason: per Hypoglycemia Standing Ord. Gabapentin (Gabapentin 400 Mg Capsule) 400 mg PO BID [facility] Last Admin: 10/04/21 08:59 Dose: 400 mg Documented By: JONNY Glucose (Glucose Gel 15 Gm Gel..Gram.) 15 gm PO Q15M PRN; Protocol PRN Reason: per Hypoglycemia Standing Ord. Heparin Sodium (Porcine) (Heparin Sodium,Porcine 5,000 Unit/Ml Vial) 5,000 unit SUBCUT Q8H [facility] Last Admin: 10/04/21 05:47 Dose: 5,000 unit Documented By: BECKY Insulin Human Lispro (Insulin Lispro 100 Unit/Ml 3 Ml Vial) 0 unit SUBCUT QIDACHS [facility]; Protocol Last Admin: 10/04/21 12:13 Dose: 6 unit Documented By: JONNY Labetalol HCl (Labetalol Hcl 20 Mg/4 Ml Syringe) 10 mg IVPUSH Q4H PRN PRN Reason: BP>170/90 Losartan Potassium (Losartan Potassium 50 Mg Tablet) 100 mg PO DAILY [facility]; Protocol Last Admin: 10/04/21 08:58 Dose: 100 mg Documented By: JONNY Melatonin (Melatonin 3 Mg Tablet) 6 mg PO BEDTIME PRN PRN Reason: Insomnia Nifedipine (Nifedipine Er 30 Mg Tab.Er.24) 30 mg PO DAILY [facility]; Protocol Last Admin: 10/04/21 08:58 Dose: 30 mg Documented By: JONNY Nitroglycerin (Nitroglycerin 0.4 Mg Tab.Subl) 0.4 mg SUBLINGUAL Q5MX3 PRN PRN Reason: Chest Pain Sodium Chloride (0.9 % Sodium Chloride Flush 3 Ml Syringe) 3 ml IVFLUSH QSHIFT [facility] Last Admin: 10/04/21 09:00 Dose: 3 ml Documented By: JONNY Zolpidem Tartrate (Zolpidem Tartrate 5 Mg Tablet) 5 mg PO BEDTIME [facility] Last Admin: 10/04/21 01:29 Dose: 5 mg Documented By: BECKY Labs CBC & Chem 7: 10/04/21 06:21 10/04/21 06:21 Labs: Laboratory Results - last 24 hr 10/03/21 10/03/21 10/03/21 14:40 14:40 14:40 MCV 83.4 MCH 28.1 MCHC 33.7 RDW 12.0 Plt Count 452 H MPV 8.9 L Immature Gran % (Auto) 0.2 Neut % (Auto) 62.4 Lymph % (Auto) 27.0 [place] % (Auto) 7.7 Eos % (Auto) 2.3 Baso % (Auto) 0.4 Lymph # (Auto) 3.0 [place] # (Auto) 0.9 Eos # (Auto) 0.3 Baso # (Auto) 0.0 Abs Immat Gran (auto) 0.02 Absolute Neuts (auto) 6.9 Absolute Nucleated RBC 0.000 Nucleated RBC % (auto) 0.0 ESR Anion Gap 13 Estim Creat Clear Calc 65.2 Estimated GFR > 60 POC Glucose Random Glucose 233 H Calcium 9.2 Troponin I High Sens < 3.5 C-Reactive Protein Urine Color Urine Appearance Urine pH Ur Specific [place] Urine Protein Urine Glucose (UA) Urine Ketones Urine Blood Urine Nitrite Ur Leukocyte Esterase Urine RBC Urine WBC Ur Squamous Epith Cells Amorphous Sediment Urine Bacteria COVID-19 ([facility]) COVID-19 [employer] Com 10/03/21 10/03/21 10/03/21 18:12 18:15 22:12 MCV MCH MCHC RDW Plt Count MPV Immature Gran % (Auto) Neut % (Auto) Lymph % (Auto) [place] % (Auto) Eos % (Auto) Baso % (Auto) Lymph # (Auto) [place] # (Auto) Eos # (Auto) Baso # (Auto) Abs Immat Gran (auto) Absolute Neuts (auto) Absolute Nucleated RBC Nucleated RBC % (auto) ESR Anion Gap Estim Creat Clear Calc Estimated GFR POC Glucose 255 H Random Glucose Calcium Troponin I High Sens < 3.5 C-Reactive Protein Urine Color STRAW Urine Appearance CLEAR Urine pH 7.5 Ur Specific [place] 1.010 Urine Protein TRACE Urine Glucose (UA) 100 H Urine Ketones NEG Urine Blood NEG Urine Nitrite NEG Ur Leukocyte Esterase TRACE H Urine RBC 0-2 Urine WBC 1-4 Ur Squamous Epith Cells 1+ Amorphous Sediment TRACE Urine Bacteria NONE COVID-19 ([facility]EN) COVID-19 [facility] 10/03/21 10/03/21 10/03/21 22:40 22:40 22:53 MCV MCH MCHC RDW Plt Count MPV Immature Gran % (Auto) Neut % (Auto) Lymph % (Auto) [place] % (Auto) Eos % (Auto) Baso % (Auto) Lymph # (Auto) [place] # (Auto) Eos # (Auto) Baso # (Auto) Abs Immat Gran (auto) Absolute Neuts (auto) Absolute Nucleated RBC Nucleated RBC % (auto) ESR 39 H Anion Gap Estim Creat Clear Calc Estimated GFR POC Glucose Random Glucose Calcium Troponin I High Sens C-Reactive Protein 1.81 H Urine Color Urine Appearance Urine pH Ur Specific [place] Urine Protein Urine Glucose (UA) Urine Ketones Urine Blood Urine Nitrite Ur Leukocyte Esterase Urine RBC Urine WBC Ur Squamous Epith Cells Amorphous Sediment Urine Bacteria COVID-19 ([facility]EN) Negative COVID-19 Clin Com See Note 10/04/21 10/04/21 10/04/21 06:21 06:21 07:29 MCV 85.2 MCH 27.4 MCHC 32.1 RDW 12.1 Plt Count 392 MPV 9.1 L Immature Gran % (Auto) 0.3 Neut % (Auto) 64.4 Lymph % (Auto) 25.3 [place] % (Auto) 7.6 Eos % (Auto) 2.2 Baso % (Auto) 0.2 Lymph # (Auto) 2.7 [place] # (Auto) 0.8 Eos # (Auto) 0.2 Baso # (Auto) 0.0 Abs Immat Gran (auto) 0.03 Absolute Neuts (auto) 6.8 Absolute Nucleated RBC 0.000 Nucleated RBC % (auto) 0.0 ESR Anion Gap 11 L Estim Creat Clear Calc 51.6 Estimated GFR 55 POC Glucose 257 H Random Glucose 310 H Calcium 9.1 Troponin I High Sens C-Reactive Protein Urine Color Urine Appearance Urine pH Ur Specific [place] Urine Protein Urine Glucose (UA) Urine Ketones Urine Blood Urine Nitrite Ur Leukocyte Esterase Urine RBC Urine WBC Ur Squamous Epith Cells Amorphous Sediment Urine Bacteria COVID-19 ([facility]) COVID-19 Clin Com 10/04/21 11:17 MCV MCH MCHC RDW Plt Count MPV Immature Gran % (Auto) Neut % (Auto) Lymph % (Auto) [place] % (Auto) Eos % (Auto) Baso % (Auto) Lymph # (Auto) [place] # (Auto) Eos # (Auto) Baso # (Auto) Abs Immat Gran (auto) Absolute Neuts (auto) Absolute Nucleated RBC Nucleated RBC % (auto) ESR Anion Gap Estim Creat Clear Calc Estimated GFR POC Glucose 300 H Random Glucose Calcium Troponin I High Sens C-Reactive Protein Urine Color Urine Appearance Urine pH Ur Specific [place] Urine Protein Urine Glucose (UA) Urine Ketones Urine Blood Urine Nitrite Ur Leukocyte Esterase Urine RBC Urine WBC Ur Squamous Epith Cells Amorphous Sediment Urine Bacteria COVID-19 ([facility]) COVID-19 Clin Com Assessment and Plan (1) Hypertensive urgency: Status: Acute (2) Chest pain: Status: Acute Plan 60-year-old female with a past medical history of hypertension, hyperlipidemia, diabetes, history of thalamic stroke, anxiety, depression presented to the hospital today with a chief complaint of chest pain/headaches. Admitted for following Headaches, chest pain 2/2 hypertensive emergency Both improved now as blood pressure better controlled CT head showed no acute findings. EKG nonischemic. Troponins x2 negative Cardiology input appreciated, follow-up as outpatient for possible stress test Hold hydrochlorothiazide 25 mg Start nifedipine 30 mg daily Continue home dose losartan Consider adding labetalol if blood pressure continues to be elevated History of diabetes Hold home diabetic regimen. Insulin sliding scale for now History of anxiety/depression Continue home Ativan/bupropion History of thalamic stroke Continue home aspirin Plavix, statin. DVT prophylaxis: Subcu heparin Code status: Full code Quality Stroke Does the patient have a stroke diagnosis?: No VTE Prior VTE?: No VTE Risk Level:: Medical - moderate - high VTE Device Contraindication: Treatment Not Indicated VTE Drug Contraindication: N/A - Med Ordered
[2021-10-04 15:47] LABS: Glucose, Whole Blood 273 mg/dL (60-115)
--- NOTE | 2021-10-04 16:13 | MHC.CM.PN ---
ZEB 10/04/21 female 59 DX CP she lives with another person. She states that she is trying to get [employer] services thru [facility]. DP home no services patient will arrange for transportation.
[2021-10-04 19:34] LABS: Glucose, Whole Blood 195 mg/dL (60-115)
[2021-10-05 04:00] VITALS: BP 124/59; PULSE 82; RESP 16; TEMP 36.2; O2SAT 98
[2021-10-05] MEDS: Heparin Sodium,Porcine 5,000 UNIT/ML VIAL 5000 UNIT SUBCUT (06:46)
[2021-10-05 07:32] VITALS: BP 123/61; PULSE 88; RESP 20; TEMP 36.9; O2SAT 99
[2021-10-05 07:50] LABS: Glucose, Whole Blood 243 mg/dL (60-115)
[2021-10-05 07:53] LABS: Anion Gap 15 (12-20); Blood Urea Nitrogen 24 mg/dL (9-16); Calcium 9.1 mg/dL (8.4-10.2); Carbon Dioxide 25 mmol/L (22-29); Chloride 101 mmol/L (96-108); Creatinine Clr Calc Pharmacy 49.2; Estimated Glomerular Filt Rate 52; Glucose Random 244 mg/dL (60-115); Potassium 4.8 mmol/L (3.3-5.1); Sodium 136 mmol/L (135-145)
[2021-10-05] MEDS: FLUoxetine HCl 20 MG CAPSULE PO (08:14)
[2021-10-05] MEDS: Aspirin 81 MG TAB.CHEW PO (08:15)
[2021-10-05] MEDS: Gabapentin 400 MG CAPSULE PO (08:15)
[2021-10-05] MEDS: Insulin Lispro 100 UNIT/ML 3 ML VIAL SUBCUT ×2 (08:15→12:12)
[2021-10-05] MEDS: NIFEdipine ER 30 MG TAB.ER.24 PO (08:15)
[2021-10-05] MEDS: 0.9 % Sodium Chloride Flush 3 ML SYRINGE IVFLUSH (08:15)
[2021-10-05] MEDS: Losartan Potassium 50 MG TABLET 100 MG PO (08:15)
[2021-10-05 11:11] LABS: Glucose, Whole Blood 289 mg/dL (60-115)
[2021-10-05 11:40] VITALS: BP 135/70; PULSE 83; RESP 20; TEMP 36.7; O2SAT 99
--- NOTE | 2021-10-05 11:51 | P.DS_ITS ---
DS: Providers Provider Date of Service: 10/05/21 Date of admission: 10/03/21 22:26 Primary care physician: Michael Peoples MD Consults: 10/03/21 22:26 Consult to Cardiology Routine Consulting Provider: Winston Allen Reason for consultation: chest pain DS: Diagnosis Discharge Diagnosis (1) Hypertensive urgency: Status: Acute (2) Chest pain: Status: Acute DS: Summary Hospital Course Hospital Course: from initial hpi: Chief Complaint: Chest pain/headache 60-year-old female with a past medical history of hypertension, hyperlipidemia, diabetes, history of thalamic stroke, anxiety, depression presented to the hospital today with a chief complaint of chest pain/headaches.? Patient reports that for the past 1 day she has been having headaches, located on the left side of the head, throbbing, no associated blurry vision.? Denies any numbness tingling or focal weakness.? Patient also reports having chest pain located on the left side of the chest w ith intermittent radiation to the left arm; denies any associated nausea vomiting or diaphoresis.? Denies any recent travel or sick contacts.? Denies any GI symptoms.? Patient mentioned that after she left the hospital she was given new prescription for nifedipine, Plavix.? And she was taking nifedipine, Plavix, losartan, hydrochlorothiazide altogether in the morning and had dizzy episodes.? When she saw her PCP and noted her blood pressure to be on the lower side and start her nifedipine and hydrochlorothiazide.? Patient also start taking Plavix.? Over the past day she has been not feeling well and when she checked her blood pressure it was noted to be 210/110; subsequently she called her PCP who suggested her to go to the ER for further evaluation.? Patient also developed headache and chest pressure.? Which resolved at the time of my interview.? Denied any numbness tingling or focal weakness. Review of all other systems is negative except mentioned above ER course: Per ER team patient on presentation noted to have elevated blood pressure with systolic in 200 and 30s.? Patient was given IV labetalol followed by amlodipine p.o..? Blood pressure improved from systolic 230s to 157.? CT head showed no acute findings. EKG was nonischemic; troponins x2 negative; chest pain improved after IV pain medication.? Reported that patient was supposed to be on losartan, nifedipine, hydr ochlorothiazide-patient was discontinued on nifedipine and hydrochlorothiazide as outpatient and only taking losartan currently for blood pressure.? Likely contributing to her elevated blood pressures.? Admitted for further management hospital course: Patient was admitted for hypertensive urgency complicated by chest pain and headaches. EKG was unremarkable, troponins were negative, CT head was unremarkable. She was seen by Cardiology who recommended adding nifedipine, and Plavix, and moving losartan to the evening and outpatient follow-up for stress test. Patient's blood pressure became much better controlled and her symptoms resolved. For diabetes she was continued on insulin and will go back on metformin on discharge. For depression and anxiety she was continued on Ativan and appropriate on. For history of thalamic stroke she was continued on aspirin statin. Patient is feeling much better and will be discharged home. Time Spent with Patient Time attestation: Total time spent providing and/or coordinating discharge services: Discharge coordination time: Greater than 30 minutes Quality: Safe Use of Opioids Does Pt have an Active Cancer Diagnosis on the Problem List?: No Quality: Stroke Does the patient have a stroke diagnosis?: No Physical Exam Vital Signs: Vital Signs: Last Vital Signs Temp 98.0 F 10/05/21 11:40 Pulse 83 10/05/21 11:40 Resp 20 10/05/21 11:40 BP 135/70 10/05/21 11:40 Pulse Ox 99 10/05/21 11:40 O2 Del Method 10/05/21 11:40 BMI result Body Mass Index 33.0 General: AO X 3, no acute distress Resp: CTA bilateral, no accessory muscles used CVS: S1,S2,RRR GI: soft, non tender, non distended Neuro: motor grossly intact, alert Psych: appropriate affect, appropriate insight DS: Data Data Completed and Pending Labs on day of discharge: Laboratory Results - last 24 hr 10/04/21 10/04/21 10/05/21 15:22 19:09 07:05 Sodium 136 Potassium 4.8 Chloride 101 Carbon Dioxide 25 Anion Gap 15 BUN 24 H D Creatinine 1.08 Estim Creat Clear Calc 49.2 Estimated GFR 52 POC Glucose 273 H 195 H Random Glucose 244 H Calcium 9.1 10/05/21 10/05/21 07:30 10:59 Sodium Potassium Chloride Carbon Dioxide Anion Gap BUN Creatinine Estim Creat Clear Calc Estimated GFR POC Glucose 243 H 289 H Random Glucose Calcium Discharge Plan Discharge Patient Disposition: Home Health Service Discharge Diagnosis: chest pain, hypertensive urgency Referrals: Michael Peoples MD [Primary Care Provider] - 1 Week Discharge Medications: New nifedipine 30 mg Tablet Extended Release 24 Hr 30 mg PO DAILY Qty: 30 0RF Protocol: Hold for SBP< HOLD for SBP < : 90 clopidogrel [Plavix] 75 mg tablet 75 mg PO DAILY Qty: 30 0RF Continued (DME) pen needle, diabetic [Pen Needle] 31 gauge x 1/4 needle See Rx Instructions .Route Qty: 100 3RF Rx Instructions: As directed daily (DME) lancets [OneTouch UltraSoft Lancets] Misc See Rx Instructions .Route Qty: 200 0RF Rx Instructions: test 3x day diclofenac sodium [Arthritis Pain (diclofenac)] 1 % gel 2 g topical QID 14 Days Qty: 100 0RF Rx Instructions: apply to single elbow, wrist or hand; for hand includes palm/fingers/back of hand atorvastatin 80 mg tablet 80 mg PO BEDTIME Qty: 30 3RF aspirin 81 mg tablet,chewable 81 mg PO DAILY Qty: 30 3RF glimepiride 4 mg tablet 4 mg PO QAM Qty: 30 0RF gabapentin 400 mg capsule 400 mg PO BID Qty: 90 0RF fluticasone propionate [Flonase Allergy Relief] 50 mcg/actuation spray,suspension 1 spray intranasal DAILY PRN (Reason: Allergy Symptoms) Rx Instructions: administer into each nostril potassium chloride 10 mEq tablet,ER particles/crystals 10 meq PO TID fluoxetine 20 mg capsule 20 mg PO DAILY zolpidem 10 mg tablet 10 mg PO BEDTIME lorazepam 0.5 mg tablet 0.5 mg PO DAILY PRN (Reason: Anxiety) (DME) blood sugar diagnostic Strip See Rx Instructions .Route Rx Instructions: As directed- 3 times daily (DME) BLOOD PRESSURE MONITOR See Rx Instructions .Route .MEDSUPPLY Qty: 1 0RF Rx Instructions: As directed Lantus Solostar U-100 Insulin 100 unit/mL (3 mL) insulin pen 20 unit subcut BEDTIME 30 Days Qty: 6 5RF dulaglutide 1.5 mg/0.5 mL pen injector 0.75 mg subcut TH@0900 28 Days Qty: 1 5RF Changed losartan 100 mg tablet 100 mg PO BEDTIME Qty: 30 3RF Discharge Orders: Discharge Order (Routine); Ordered 06/22/22 Ordered By: Denilson Morales Diet: advance to usual diet and low salt diet Activity on Discharge: As tolerated Stand Alone Forms: Patient Portal Discharge page Care Plan Goals: control bp Health Concerns: htn, possible underlying cad Plan of Treatment: start plavix, start nifedipine, move losatan to bedtime, follow up with cardiology for stress test Assessment: see above
[2021-10-05] MEDS: Acetaminophen 325 MG TABLET 650 MG PO (12:14)
--- NOTE | 2021-10-05 12:17 | MHC.CM.PN ---
IMM 10/04/21 Female 60 DX R/O ACS Patient is discharged to home with [facility]. Family will provide transportation @ 3pm today.
--- NOTE | 2021-10-05 14:49 | P.PNCA_ITS ---
Subjective Subjective Date of Service: 10/05/21 Principal diagnosis: Hypertensive urgency Interval history: Patient feeling well. Blood pressure is well optimized at this point time. Continues to have labile blood pressure. No lightheadedness or syncope. Review of Systems Review of Systems Yes all other systems are reviewed and are negative Physical Exam Vital Signs: Last Vital Signs Temp 98.0 F 10/05/21 11:40 Pulse 83 10/05/21 11:40 Resp 20 10/05/21 11:40 BP 135/70 10/05/21 11:40 Pulse Ox 99 10/05/21 11:40 O2 Del Method 10/05/21 11:40 BMI result Body Mass Index 33.0 Const General: cooperative, comfortable, no acute distress, alert and awake Nutritional Appearance: obese Orientation/consciousness: patient oriented x3 Limitations: no limitations Neck Neck: Yes trachea midline, Yes supple and Yes no JVD Chest Chest palpation & inspection: normal inspection of the chest Resp Effort & Inspection: normal respiratory effort Auscultation: clear to auscultation bilaterally Cardio Jugular venous distension: no JVD Palpation: normal PMI Rate: regular rate Rhythm: regular rhythm Heart sounds: S1 normal heart sound present, S2 normal heart sound present, no click, no gallops and no murmurs GI Inspection: Yes obesity Auscultation: normal bowel sounds Skin General skin exam: no rashes or lesions noted Neuro General: patient oriented x3 and no focal motor deficits Extrem General: Yes no clubbing, cyanosis or edema Objective Labs and Meds Result diagrams: 10/04/21 06:21 10/05/21 07:05 Lab results: Laboratory Results - last 24 hr 10/04/21 10/04/21 10/05/21 15:22 19:09 07:05 Sodium 136 Potassium 4.8 Chloride 101 Carbon Dioxide 25 Anion Gap 15 BUN 24 H D Creatinine 1.08 Estim Creat Clear Calc 49.2 Estimated GFR 52 POC Glucose 273 H 195 H Random Glucose 244 H Calcium 9.1 10/05/21 10/05/21 07:30 10:59 Sodium Potassium Chloride Carbon Dioxide Anion Gap BUN Creatinine Estim Creat Clear Calc Estimated GFR POC Glucose 243 H 289 H Random Glucose Calcium Progress Note: A&P Assessment and plan (1) Hypertensive urgency: Status: Acute Assessment and Plan: Hypertensive urgency with markedly labile blood pressure. Blood pressure is much better control with improved symptoms. She did have chest pain with elevated blood pressure. This possibility of underlying obstructive coronary artery disease. Outpatient workup will be pursued. Can be discharged on on current dose of losartan to be taken in the morning and Procardia to be taken at nighttime. Patient is advised to maintain a blood pressure log at home. Low- salt diet was discussed adequate hydration discussed. Will follow up in the clinic after stress test. Patient can be discharged home. Thank you for allow ing us to partake in the care Time Spent With Patient Time: Total time spent is greater than 50% in coordination of care (as documented) at patient's floor/unit and/or counseling patient: Progress Note: Quality Stroke Does the patient have a stroke diagnosis?: No Procedures Date of Service Date of Service: 10/05/21
== END 2021-10-05 16:24 | disposition home health service (06) ==
LOC: HO.ED 22:28 → HO.EDOVER 22:33 → HO.IMC 22:46
PROVIDERS: Physician Assistant; Student in an Organized Health Care Education/Training Program; Admitting Provider Hospitalist; Emergency Provider Emergency Medicine; PCP Internal Medicine; Visit Provider Internal Medicine
DX: I16.0 Hypertensive urgency (principal); R07.9 Chest pain, unspecified; I10 Essential (primary) hypertension; E11.9 Type 2 diabetes mellitus without complications; E78.5 Hyperlipidemia, unspecified; R51.9 Headache, unspecified; I69.351 Hemiplegia and hemiparesis following cerebral infarction affecting right dominant side; I69.328 Other speech and language deficits following cerebral infarction; R00.0 Tachycardia, unspecified; G47.00 Insomnia, unspecified; E66.9 Obesity, unspecified; F41.8 Other specified anxiety disorders; Z68.33 Body mass index [BMI] 33.0-33.9, adult; Z20.822 Contact with and (suspected) exposure to COVID-19; Z77.22 Contact with and (suspected) exposure to environmental tobacco smoke (acute) (chronic); Z88.8 Allergy status to other drugs, medicaments and biological substances; Z88.6 Allergy status to analgesic agent; Z91.011 Allergy to milk products; Z79.82 Long term (current) use of aspirin; Z79.4 Long term (current) use of insulin; Z79.899 Other long term (current) drug therapy
CPT/HCPCS: 36415; 70450; 80048; 81001; 82947; 84484; 85025; 85652; 86140; 87635; 93005; 96372; 96374; 96375; 96376; 99219; 99285; J1200; J1885

== ENCOUNTER → 2021-11-29 07:59 | Outpatient (BNVA) | payer OTHER, SELFPAY | PROVIDERS: PCP Internal Medicine; Visit Provider Internal Medicine Endocrinology, Diabetes & Metabolism | DX: E11.65 Type 2 diabetes mellitus with hyperglycemia (principal); Z79.4 Long term (current) use of insulin | CPT/HCPCS: 82947; 99202 ==

== ENCOUNTER 2021-11-30 15:01 | Outpatient (REF) | payer OTHER, SELFPAY ==
--- NOTE | ~2021-11-30 | XR_ITS ---
EXAMINATION: XR ANKLE, LEFT CLINICAL INFORMATION: Ankle pain COMPARISON: None TECHNIQUE: AP, lateral, and mortise views of the left ankle. FINDINGS: There is a moderate size retrocalcaneal and small calcaneal enthesophytes. Ankle mortise and subtalar joints are normal. No visible acute fracture, dislocation or subluxation seen. XR/XR ankle LT 2V IMPRESSION: Moderate retrocalcaneal and small calcaneal heel enthesophytes.
== END 2021-11-30 15:02 | disposition home or self-care (01) ==
LOC: HO.XRAY 15:01
PROVIDERS: PCP Internal Medicine; Visit Provider Internal Medicine
DX: M25.572 Pain in left ankle and joints of left foot (principal)
CPT/HCPCS: 73600

== ENCOUNTER 2022-01-10 16:18 | Outpatient (REF) | payer OTHER, SELFPAY ==
[2022-01-10 16:39] LABS: MANUAL DIFF FLAG NO
[2022-01-10 16:41] LABS: Basophils Absolute Auto 0.1 X10*3/uL (0.0-0.2); Basophils Percent Auto 0.5 % (0-2); Eosinophils Absolute Auto 0.3 X10*3/uL (0.0-0.4); Eosinophils Percent Auto 2.4 % (0-4); Hematocrit 35.7 % (37.0-47.0); Hemoglobin 11.9 g/dl (12.0-16.0); Imm Gran Abs Auto 0.02 X10*3/uL (0.00-0.03); Imm Gran Pct Auto 0.2 % (0.0-0.4); Lymphocytes Absolute Auto 2.6 X10*3/uL (1.2-4.9); Lymphocytes Percent Auto 23.6 % (20-40); Mean Corpuscular HGB Conc 33.3 g/dl (31.0-35.0); Mean Corpuscular Hemoglobin 28.3 pg (27.0-33.0); Mean Platelet Volume 8.9 fL (9.4-12.3); Monocytes Absolute Auto 0.5 X10*3/uL (0.1-1.2); Monocytes Percent Auto 4.9 % (2-11); Neutrophils Absolute Auto 7.5 x10*3/uL (2.0-8.3); Neutrophils Percent Auto 68.4 % (45-73); Platelet Count 466 X10*3/uL (160-400); Red Cell Distribution Width 13.1 % (11.0-16.0); White Blood Count 10.9 X10*3/uL (4.8-10.8)
[2022-01-10 17:16] LABS: Alanine Aminotransferase 25 U/L (0-31); Albumin Level 4.3 g/dL (3.5-5.0); Alkaline Phosphatase 133 U/L (39-117); Anion Gap 16 (12-20); Aspartate Amino Transferase 20 U/L (5-31); Bilirubin Total 0.4 mg/dL (0.0-1.0); Blood Urea Nitrogen 12 mg/dL (9-16); Calcium 9.5 mg/dL (8.4-10.2); Carbon Dioxide 27 mmol/L (22-29); Chloride 103 mmol/L (96-108); Cholesterol 150 mg/dL; Estimated Glomerular Filt Rate > 60; Glucose Fasting 123 mg/dL (60-99); HDL Cholesterol 47 mg/dL; Iron 65 mcg/dL (30-160); LDL Cholesterol Calculated 81 mg/dl; Percent Iron Saturation 17 % (15-50); Potassium 4.6 mmol/L (3.3-5.1); Sodium 141 mmol/L (135-145); Total Iron Binding Capacity 383 mcg/dL (228-428); Total Protein 7.8 g/dL (6.5-8.0); Triglycerides 112 mg/dL; Unsaturated Iron Binding 318 ug/dL
[2022-01-10 17:36] LABS: TSH reflex Free T4 1.49 uIU/mL (0.32-4.0)
[2022-01-10 17:46] LABS: Folate 8.8 ng/mL (> or = 4.0); Vitamin B12 449 pg/mL (200-900)
[2022-01-10 17:50] LABS: Appearance Urine Clear; Color Urine Yellow; Glucose Urine UA Negative (Negative); Leukocyte Esterase Urine Trace (Negative); Nitrite Urine Negative (Negative); Specific Gravity - Urine 1.015 (1.005-1.025); UMIC TRIGGER UACC YES; Urine Blood Negative (Negative); Urine Ketones Negative (Negative); Urine Protein 30 (1+) mg/dL (Neg-Trace)
[2022-01-10 17:56] LABS: Bacteria Urine None Seen (None Seen); Hyaline Casts Urine 0-2 /LPF (0-2); RBC Urine 0-2 /HPF (0-2); Squamous Epithelial Cell Urine 0-2 /HPF (0-2); WBC Urine 0-5 /HPF (0-5)
[2022-01-10 18:07] LABS: Creatinine Urine 99.97 mg/dL
[2022-01-11 07:57] LABS: Estimated Average Glucose 217 mg/dL; Hemoglobin A1c % 9.2 %
== END 2022-01-10 16:19 | disposition home or self-care (01) ==
LOC: HO.LAB 16:18
PROVIDERS: PCP Internal Medicine; Visit Provider Internal Medicine
DX: E78.00 Pure hypercholesterolemia, unspecified (principal); D50.9 Iron deficiency anemia, unspecified; I10 Essential (primary) hypertension; R20.2 Paresthesia of skin; E55.9 Vitamin D deficiency, unspecified; E11.9 Type 2 diabetes mellitus without complications
CPT/HCPCS: 36415; 80053; 80061; 81001; 82043; 82306; 82607; 82746; 83036; 83540; 84443; 85025

== ENCOUNTER 2022-03-12 15:02 | Emergency (ER) | payer OTHER, SELFPAY ==
[2022-03-12 16:41] VITALS: BP 205/118; PULSE 91; RESP 18; TEMP 36.4; O2SAT 99; BMI 29.2
--- NOTE | 2022-03-12 16:44 | ED_ITS ---
HPI - General Adult General Chief complaint: General Medical <YENNIFER Mcgregor - Last Filed: 03/12/22 16:46> Stated complaint: rash on L leg <YENNIFER Mcgregor - Last Filed: 03/12/22 16:46> Time Seen by Provider: 03/12/22 20:23 <YENNIFER Mcgregor - Last Filed: 03/12/22 16:46> Source: patient <YENNIFER Mcgregor - Last Filed: 03/12/22 16:46> Mode of arrival: ambulatory <YENNIFER Mcgregor - Last Filed: 03/12/22 16:46> Limitations: no limitations <YENNIFER Mcgregor - Last Filed: 03/12/22 16:46> History of Present Illness HPI narrative: Patient with chronic dermatitis rash on her left foot history of fibromyalgia comes here with pain all over no fever no chills patient already has seen head of global strategic partnerships as a cream for chronic rash <Bradly Hope MD - Last Filed: 03/13/22 00:13> Related Data Home medications: Home Medications Medication Instructions Recorded Confirmed fluoxetine 20 mg capsule 20 mg PO DAILY 11/12/20 01/17/22 lorazepam 0.5 mg tablet 0.5 mg PO DAILY PRN Anxiety 11/12/20 01/17/22 zolpidem 10 mg tablet 10 mg PO BEDTIME 11/12/20 01/17/22 potassium chloride 10 mEq 10 meq PO TID 06/06/21 01/17/22 tablet,extended release(part/cryst) fluticasone propionate 50 1 spray intranasal DAILY PRN 10/04/21 01/17/22 mcg/actuation nasal Allergy Symptoms spray,suspension (Flonase Allergy Relief) lancets (OneTouch UltraSoft 10/10/21 01/17/22 Lancets) Previous Rx's Medication Instructions Recorded BLOOD PRESSURE MONITOR #1 ea 11/26/20 lancets (OneTouch UltraSoft #200 ea 06/02/21 Lancets) diclofenac sodium 1 % topical gel 2 g topical QID 14 days #100 grams 07/26/21 (Arthritis Pain (diclofenac)) blood sugar diagnostic #100 ea 10/19/21 blood-glucose meter (EventfindaTouch #1 ea 10/19/21 Ultra2 Meter kit) insulin glargine 100 unit/mL (3 14 unit (0.14 mL) subcut BEDTIME 11/29/21 mL) subcutaneous pen (Lantus #3 mL Solostar U-100 Insulin) pioglitazone 15 mg tablet (Actos) 15 mg PO DAILY #30 tabs 11/29/21 cephalexin 500 mg capsule 500 mg PO QID 7 days #28 caps 12/09/21 glimepiride 4 mg tablet 4 mg PO QAM #30 tabs 12/12/21 clopidogrel 75 mg tablet (Plavix) 75 mg PO DAILY 30 days #30 tabs 12/13/21 losartan 100 mg tablet 100 mg PO BEDTIME 30 days #30 tabs 12/13/21 nifedipine 30 mg tablet,extended 30 mg PO DAILY 30 days #30 tabs 12/13/21 release 24 hr aspirin 81 mg chewable tablet 81 mg PO DAILY #30 tabs 01/25/22 atorvastatin 80 mg tablet 80 mg PO BEDTIME #30 tabs 01/25/22 cholecalciferol (vitamin D3) 50 50 mcg PO DAILY #90 tabs 01/25/22 mcg (2,000 unit) tablet dulaglutide 1.5 mg/0.5 mL 1.5 mg (0.5 mL) subcut QWEEK #2 mL 01/25/22 subcutaneous pen injector ([email or web address]) gabapentin 400 mg capsule 400 mg PO BID #90 caps 01/25/22 blood sugar diagnostic (OneTouch #100 ea 01/31/22 Ultra Test strips) pen needle, diabetic 31 gauge x #100 ea 01/31/22 1/4 (Pen Needle) tramadol 50 mg tablet 50 mg PO Q6H PRN pain #20 tabs 03/12/22 <YENNIFER Mcgregor - Last Filed: 03/12/22 16:46> Allergies/adverse reactions: Allergies Allergy/AdvReac Type Severity Reaction Status Date / Time ibuprofen [From Motrin] Allergy Mild STOMACH Verified 01/17/22 09:44 UPSET oxycodone [From Percocet] Allergy Mild ITCHING Verified 01/17/22 09:44 lactose [LACTOSE] Allergy Unknown ABD PAIN Verified 01/17/22 09:44 metformin AdvReac Unknown nausea, Verified 01/17/22 09:44 somnolence amlodipine AdvReac Swelling Verified 01/17/22 09:44 <YENNIFER Mcgregor - Last Filed: 03/12/22 16:46> Review of Systems Review of Systems: Yes all other systems are reviewed and are negative <Bradly Hope MD - Last Filed: 03/13/22 00:13> [facility] Past Medical History Medical History: Medical History Anemia, iron deficiency Anxiety Benign essential hypertension CVA (cerebral vascular accident) Depression Diabetes Diabetes mellitus Fibromyalgia GERD without esophagitis HTN (hypertension) Insomnia Intracranial vascular stenosis Lumbar degenerative disc disease Obesity (BMI 30-39.9) Pure hypercholesterolemia Right thalamic stroke Sciatic pain Uncontrolled type 2 diabetes mellitus with hyperglycemia, with long-term current use of insulin <YENNIFER Mcgregor - Last Filed: 03/12/22 16:46> Surgical History: Surgical History H/O bilateral breast reduction surgery History of appendectomy History of carpal tunnel release History of section History of hysterectomy History of left salpingo-oophorectomy History of surgery <YENNIFER Mcgregor - Last Filed: 03/12/22 16:46> Family History Family History: Family History Father Suicide Epilepsy Mother Poor high blood pressure control Diabetes Hypertension Daughter Spina bifida Brother Stroke Other Mental health problem <YENNIFER Mcgregor - Last Filed: 03/12/22 16:46> Social History Social History: Social History Household Members: Significant Other Housing: Apartment Do you presently have visiting nurse or other home services: No Alcohol intake: never Patient Tobacco Use Status: Never used Tobacco Smoked in Last 30 Days: No e-Cigarette/Vaping Use: Never Used Second Hand Smoke Exposure: Yes Use of substances other than those prescribed or required for medical reasons: No Advance Directives: No Advance Directives Information Provided: No Patient : No service: No Current occupational status: disabled Cognitive needs: Yes (cane) Hearing needs: No Vision needs: Yes (glasses) <EYNNIFER Mcgregor - Last Filed: 03/12/22 16:46> Physical Exam ED Vital Signs: Vital Signs - 24 hr 03/12/22 16:41 03/12/22 21:05 Temperature 97.6 F 98.3 F Pulse Rate 91 88 Respiratory Rate 18 18 Blood Pressure 205/118 H 180/98 H Pulse Oximetry 99 99 Oxygen Delivery Method Room Air Room Air BMI result Body Mass Index 29.2 <YENNIFER Mcgregor - Last Filed: 03/12/22 16:46> Vital Signs - 24 hr 03/12/22 16:41 03/12/22 21:05 Temperature 97.6 F 98.3 F Pulse Rate 91 88 Respiratory Rate 18 18 Blood Pressure 205/118 H 180/98 H Pulse Oximetry 99 99 Oxygen Delivery Method Room Air Room Air BMI result Body Mass Index 29.2 <Bradly Hope MD - Last Filed: 03/13/22 00:13> Appearance: Alert. Oriented X3. No acute distress. Eyes: PERRLA, No Nystagmus ENT: Pharynx normal. Oral Mucosa moist Neck: Normal inspection. Neck supple. CVS: Normal heart rate and rhythm. Pulses normal. Respiratory: No respiratory distress. Equal air entry bilateral, no wheezing/ rales/rhonchi Abdomen: Soft and nontender. Bowel sounds are present, no mass palpable, no CVA tenderness Skin: Skin warm and dry. Small area of dermatitis rash on the left lower leg and ankle area no signs of infection Extremities: No lower extremity edema. No calf tenderness mild tenderness at upper scapular area Neuro: Oriented X 3. No motor deficit. <Bradly Hope MD - Last Filed: 03/13/22 00:13> Course Course Course Narrative: RME performed by Jessica Montes PA-C. Patient is a 61 year old female presenting to the Emergency Department with multiple complaints including a rash, abdominal pain, joint pain, and feeling generally unwell. CBC, CMP, ESR, CRP, and UA ordered. Patient placed back in the waiting room pending results and bed availability. <YENNIFER Mcgregor - Last Filed: 03/12/22 16:46> Medications Administered Discontinued Medications Generic Name Dose Route Start Last Admin Trade Name Freq PRN Reason Stop Dose Admin Tramadol HCl 25 mg 03/12/22 20:42 03/12/22 21:04 Tramadol Hcl 50 Mg Tablet PO 03/12/22 20:43 25 mg ONCE ONE Administration <YENNIFER Mcgregor - Last Filed: 03/12/22 16:46> Medications Administered Discontinued Medications Generic Name Dose Route Start Last Admin Trade Name Emerson PRN Reason Stop Dose Admin Tramadol HCl 25 mg 03/12/22 20:42 03/12/22 21:04 Tramadol Hcl 50 Mg Tablet PO 03/12/22 20:43 25 mg ONCE ONE Administration <Bradly Hope MD - Last Filed: 03/13/22 00:13> Medical Decision Making MDM Narrative Medical decision making narrative: Patient with fibromyalgia comes here for diffuse pain tenderness at the trigger point areas and upper back patient does have pain medication at home will discharge her on tramadol advised to follow with her 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 <Bradly Hope MD - Last Filed: 03/13/22 00:13> Result diagrams: : 03/12/22 16:51 03/12/22 16:51 <YENNIFER Mcgregor - Last Filed: 03/12/22 16:46> Labs: Lab Results 03/12/22 03/12/22 03/12/22 Range/Units 16:51 16:51 16:51 WBC 10.0 (4.8-10.8) X10*3/uL RBC 4.46 (4.20-5.50) X10*6/uL Hgb 12.4 (12.0-16.0) g/dl Hct 37.5 (37.0-47.0) % MCV 84.1 (80.0-98.0) fL MCH 27.8 (27.0-33.0) pg MCHC 33.1 (31.0-35.0) g/dl RDW 12.3 (11.0-16.0) % Plt Count 457 H (160-400) X10*3/uL MPV 9.0 L (9.4-12.3) fL Immature Gran % (Auto) 0.2 (0.0-0.4) % Neut % (Auto) 66.4 (45-73) % Lymph % (Auto) 24.4 (20-40) % [place] % (Auto) 6.3 (2-11) % Eos % (Auto) 2.3 (0-4) % Baso % (Auto) 0.4 (0-2) % Lymph # (Auto) 2.5 (1.2-4.9) X10*3/uL [place] # (Auto) 0.6 (0.1-1.2) X10*3/uL Eos # (Auto) 0.2 (0.0-0.4) X10*3/uL Baso # (Auto) 0.0 (0.0-0.2) X10*3/uL Abs Immat Gran (auto) 0.02 (0.00-0.03) X10*3/uL Absolute Neuts (auto) 6.7 (2.0-8.3) x10*3/uL Absolute Nucleated RBC 0.000 (0.0-0.012) X10*3/uL Nucleated RBC % (auto) 0.0 (0.0-0.2) /100WBC ESR 39 H (0-20) MM/HR Sodium 135 (135-145) mmol/L Potassium 4.6 (3.3-5.1) mmol/L Chloride 99 (96-108) mmol/L Carbon Dioxide 25 (22-29) mmol/L Anion Gap 16 (12-20) BUN 15 (9-16) mg/dL Creatinine 1.01 (0.5-1.4) mg/dL Estim Creat Clear Calc 48.8 Estimated GFR 56 Random Glucose 341 H (60-115) mg/dL Calcium 9.4 (8.4-10.2) mg/dL Magnesium 2.2 (1.6-2.6) mg/dL Total Bilirubin 0.4 (0.0-1.0) mg/dL AST 19 (5-31) U/L ALT 24 (0-31) U/L Alkaline Phosphatase 138 H (39-117) U/L C-Reactive Protein 1.11 H (< or = 0.50) mg/dL Total Protein 7.9 (6.5-8.0) g/dL Albumin 4.2 (3.5-5.0) g/dL Urine Color Urine Appearance Urine pH (5.0-9.0) Ur Specific [place] (1.005-1.025) Urine Protein (Neg-Trace) mg/dL Urine Glucose (UA) (Negative) mg/dL Urine Ketones (Negative) mg/dL Urine Blood (Negative) Urine Nitrite (Negative) Ur Leukocyte Esterase (Negative) Urine RBC (0-2) /HPF Urine WBC (0-5) /HPF Ur Squamous Epith Cells (0-2) /HPF Urine Bacteria (None Seen) Hyaline Casts (0-2) /LPF 03/12/22 Range/Units 17:00 WBC (4.8-10.8) X10*3/uL RBC (4.20-5.50) X10*6/uL Hgb (12.0-16.0) g/dl Hct (37.0-47.0) % MCV (80.0-98.0) fL MCH (27.0-33.0) pg MCHC (31.0-35.0) g/dl RDW (11.0-16.0) % Plt Count (160-400) X10*3/uL MPV (9.4-12.3) fL Immature Gran % (Auto) (0.0-0.4) % Neut % (Auto) (45-73) % Lymph % (Auto) (20-40) % [place] % (Auto) (2-11) % Eos % (Auto) (0-4) % Baso % (Auto) (0-2) % Lymph # (Auto) (1.2-4.9) X10*3/uL [place] # (Auto) (0.1-1.2) X10*3/uL Eos # (Auto) (0.0-0.4) X10*3/uL Baso # (Auto) (0.0-0.2) X10*3/uL Abs Immat Gran (auto) (0.00-0.03) X10*3/uL Absolute Neuts (auto) (2.0-8.3) x10*3/uL Absolute Nucleated RBC (0.0-0.012) X10*3/uL Nucleated RBC % (auto) (0.0-0.2) /100WBC ESR (0-20) MM/HR Sodium (135-145) mmol/L Potassium (3.3-5.1) mmol/L Chloride (96-108) mmol/L Carbon Dioxide (22-29) mmol/L Anion Gap (12-20) BUN (9-16) mg/dL Creatinine (0.5-1.4) mg/dL Estim Creat Clear Calc Estimated GFR Random Glucose (60-115) mg/dL Calcium (8.4-10.2) mg/dL Magnesium (1.6-2.6) mg/dL Total Bilirubin (0.0-1.0) mg/dL AST (5-31) U/L ALT (0-31) U/L Alkaline Phosphatase (39-117) U/L C-Reactive Protein (< or = 0.50) mg/dL Total Protein (6.5-8.0) g/dL Albumin (3.5-5.0) g/dL Urine Color Yellow Urine Appearance Clear Urine pH 6.5 (5.0-9.0) Ur Specific [place] 1.025 (1.005-1.025) Urine Protein 30 (1+) H (Neg-Trace) mg/dL Urine Glucose (UA) >=1000 H (Negative) mg/dL Urine Ketones Negative (Negative) mg/dL Urine Blood Negative (Negative) Urine Nitrite Negative (Negative) Ur Leukocyte Esterase Negative (Negative) Urine RBC 0-2 (0-2) /HPF Urine WBC 0-5 (0-5) /HPF Ur Squamous Epith Cells 0-2 (0-2) /HPF Urine Bacteria None Seen (None Seen) Hyaline Casts 0-2 (0-2) /LPF <YENNIFER cMgregor - Last Filed: 03/12/22 16:46> Lab Results 03/12/22 03/12/22 03/12/22 Range/Units 16:51 16:51 16:51 WBC 10.0 (4.8-10.8) X10*3/uL RBC 4.46 (4.20-5.50) X10*6/uL Hgb 12.4 (12.0-16.0) g/dl Hct 37.5 (37.0-47.0) % MCV 84.1 (80.0-98.0) fL MCH 27.8 (27.0-33.0) pg MCHC 33.1 (31.0-35.0) g/dl RDW 12.3 (11.0-16.0) % Plt Count 457 H (160-400) X10*3/uL MPV 9.0 L (9.4-12.3) fL Immature Gran % (Auto) 0.2 (0.0-0.4) % Neut % (Auto) 66.4 (45-73) % Lymph % (Auto) 24.4 (20-40) % [place] % (Auto) 6.3 (2-11) % Eos % (Auto) 2.3 (0-4) % Baso % (Auto) 0.4 (0-2) % Lymph # (Auto) 2.5 (1.2-4.9) X10*3/uL [place] # (Auto) 0.6 (0.1-1.2) X10*3/uL Eos # (Auto) 0.2 (0.0-0.4) X10*3/uL Baso # (Auto) 0.0 (0.0-0.2) X10*3/uL Abs Immat Gran (auto) 0.02 (0.00-0.03) X10*3/uL Absolute Neuts (auto) 6.7 (2.0-8.3) x10*3/uL Absolute Nucleated RBC 0.000 (0.0-0.012) X10*3/uL Nucleated RBC % (auto) 0.0 (0.0-0.2) /100WBC ESR 39 H (0-20) MM/HR Sodium 135 (135-145) mmol/L Potassium 4.6 (3.3-5.1) mmol/L Chloride 99 (96-108) mmol/L Carbon Dioxide 25 (22-29) mmol/L Anion Gap 16 (12-20) BUN 15 (9-16) mg/dL Creatinine 1.01 (0.5-1.4) mg/dL Estim Creat Clear Calc 48.8 Estimated GFR 56 Random Glucose 341 H (60-115) mg/dL Calcium 9.4 (8.4-10.2) mg/dL Magnesium 2.2 (1.6-2.6) mg/dL Total Bilirubin 0.4 (0.0-1.0) mg/dL AST 19 (5-31) U/L ALT 24 (0-31) U/L Alkaline Phosphatase 138 H (39-117) U/L C-Reactive Protein 1.11 H (< or = 0.50) mg/dL Total Protein 7.9 (6.5-8.0) g/dL Albumin 4.2 (3.5-5.0) g/dL Urine Color Urine Appearance Urine pH (5.0-9.0) Ur Specific [place] (1.005-1.025) Urine Protein (Neg-Trace) mg/dL Urine Glucose (UA) (Negative) mg/dL Urine Ketones (Negative) mg/dL Urine Blood (Negative) Urine Nitrite (Negative) Ur Leukocyte Esterase (Negative) Urine RBC (0-2) /HPF Urine WBC (0-5) /HPF Ur Squamous Epith Cells (0-2) /HPF Urine Bacteria (None Seen) Hyaline Casts (0-2) /LPF 03/12/22 Range/Units 17:00 WBC (4.8-10.8) X10*3/uL RBC (4.20-5.50) X10*6/uL Hgb (12.0-16.0) g/dl Hct (37.0-47.0) % MCV (80.0-98.0) fL MCH (27.0-33.0) pg MCHC (31.0-35.0) g/dl RDW (11.0-16.0) % Plt Count (160-400) X10*3/uL MPV (9.4-12.3) fL Immature Gran % (Auto) (0.0-0.4) % Neut % (Auto) (45-73) % Lymph % (Auto) (20-40) % [place] % (Auto) (2-11) % Eos % (Auto) (0-4) % Baso % (Auto) (0-2) % Lymph # (Auto) (1.2-4.9) X10*3/uL [place] # (Auto) (0.1-1.2) X10*3/uL Eos # (Auto) (0.0-0.4) X10*3/uL Baso # (Auto) (0.0-0.2) X10*3/uL Abs Immat Gran (auto) (0.00-0.03) X10*3/uL Absolute Neuts (auto) (2.0-8.3) x10*3/uL Absolute Nucleated RBC (0.0-0.012) X10*3/uL Nucleated RBC % (auto) (0.0-0.2) /100WBC ESR (0-20) MM/HR Sodium (135-145) mmol/L Potassium (3.3-5.1) mmol/L Chloride (96-108) mmol/L Carbon Dioxide (22-29) mmol/L Anion Gap (12-20) BUN (9-16) mg/dL Creatinine (0.5-1.4) mg/dL Estim Creat Clear Calc Estimated GFR Random Glucose (60-115) mg/dL Calcium (8.4-10.2) mg/dL Magnesium (1.6-2.6) mg/dL Total Bilirubin (0.0-1.0) mg/dL AST (5-31) U/L ALT (0-31) U/L Alkaline Phosphatase (39-117) U/L C-Reactive Protein (< or = 0.50) mg/dL Total Protein (6.5-8.0) g/dL Albumin (3.5-5.0) g/dL Urine Color Yellow Urine Appearance Clear Urine pH 6.5 (5.0-9.0) Ur Specific [place] 1.025 (1.005-1.025) Urine Protein 30 (1+) H (Neg-Trace) mg/dL Urine Glucose (UA) >=1000 H (Negative) mg/dL Urine Ketones Negative (Negative) mg/dL Urine Blood Negative (Negative) Urine Nitrite Negative (Negative) Ur Leukocyte Esterase Negative (Negative) Urine RBC 0-2 (0-2) /HPF Urine WBC 0-5 (0-5) /HPF Ur Squamous Epith Cells 0-2 (0-2) /HPF Urine Bacteria None Seen (None Seen) Hyaline Casts 0-2 (0-2) /LPF <Bradly Hope MD - Last Filed: 03/13/22 00:13> Discharge Plan Discharge Clinical Impression: Fibromyalgia, Dermatitis <YENNIFER Mcgregor - Last Filed: 03/12/22 16:46> Patient Disposition: Home, Self-Care <YENNIFER Mcgregor - Last Filed: 03/12/22 16:46> Instructions: Fibromyalgia (ED), Dermatitis (ED) <YENNIFER Mcgregor - Last Filed: 03/12/22 16:46> Additional Instructions: Take pain medication as prescribed Continue to use cream provided by head of global strategic partnerships Follow with PCP <YENNIFER Mcgregor - Last Filed: 03/12/22 16:46> Prescriptions: New tramadol 50 mg tablet 50 mg PO Q6H PRN (Reason: pain) Qty: 20 0RF No Action (DME) lancets [OneTouch UltraSoft Lancets] Misc See Rx Instructions .Route Qty: 200 0RF Rx Instructions: test 3x day diclofenac sodium [Arthritis Pain (diclofenac)] 1 % gel 2 g topical QID 14 Days Qty: 100 0RF Rx Instructions: apply to single elbow, wrist or hand; for hand includes palm/fingers/back of hand (DME) lancets [OneTouch UltraSoft Lancets] Misc See Rx Instructions .Route Rx Instructions: As directed- To test blood sugar TID insulin glargine [Lantus Solostar U-100 Insulin] 100 unit/mL (3 mL) insulin pen 14 unit subcut BEDTIME Qty: 3 0RF glimepiride 4 mg tablet 4 mg PO QAM Qty: 30 1RF clopidogrel [Plavix] 75 mg tablet 75 mg PO DAILY 30 Days Qty: 30 3RF losartan 100 mg tablet 100 mg PO BEDTIME 30 Days Qty: 30 3RF nifedipine 30 mg tablet extended release 24hr 30 mg PO DAILY 30 Days Qty: 30 3RF Protocol: Hold for SBP< HOLD for SBP < : 90 Trulicity 1.5 mg/0.5 mL pen injector 1.5 mg subcut QWEEK Qty: 2 0RF atorvastatin 80 mg tablet 80 mg PO BEDTIME Qty: 30 3RF aspirin 81 mg tablet,chewable 81 mg PO DAILY Qty: 30 3RF gabapentin 400 mg capsule 400 mg PO BID Qty: 90 1RF cholecalciferol (vitamin D3) 50 mcg (2,000 unit) tablet 50 mcg PO DAILY Qty: 90 3RF (DME) pen needle, diabetic [Pen Needle] 31 gauge x 1/4 needle See Rx Instructions .Route Qty: 100 3RF Rx Instructions: As directed daily (DME) OneTouch Ultra Test Strip See Rx Instructions .Route Qty: 100 12RF Rx Instructions: As directed - to test blood sugar TID fluticasone propionate [Flonase Allergy Relief] 50 mcg/actuation spray,suspension 1 spray intranasal DAILY PRN (Reason: Allergy Symptoms) Rx Instructions: administer into each nostril potassium chloride 10 mEq tablet,ER particles/crystals 10 meq PO TID fluoxetine 20 mg capsule 20 mg PO DAILY zolpidem 10 mg tablet 10 mg PO BEDTIME lorazepam 0.5 mg tablet 0.5 mg PO DAILY PRN (Reason: Anxiety) (DME) BLOOD PRESSURE MONITOR See Rx Instructions .Route .MEDSUPPLY Qty: 1 0RF Rx Instructions: As directed (DME) blood sugar diagnostic Strip See Rx Instructions .Route Qty: 100 12RF Rx Instructions: As directed- 3 times daily (DME) blood-glucose meter [EventfindaTouch Ultra2 Meter] Kit See Rx Instructions .Route Qty: 1 0RF Rx Instructions: As directed- To test blood sugar TID cephalexin 500 mg capsule 500 mg PO QID 7 Days Qty: 28 0RF pioglitazone [Actos] 15 mg tablet 15 mg PO DAILY Qty: 30 4RF <YENNIFER Mcgregor - Last Filed: 03/12/22 16:46> Interventions: ED Discharge Assessment Last Done: 03/12/22 21:09 <YENNIFER Mcgregor - Last Filed: 03/12/22 16:46> Discharge Date/Time: 03/12/22 21:09 <YENNIFER Mcgregor - Last Filed: 03/12/22 16:46>
[2022-03-12 17:02] LABS: MANUAL DIFF FLAG NO
[2022-03-12 17:03] LABS: Basophils Percent Auto 0.4 % (0-2); Eosinophils Absolute Auto 0.2 X10*3/uL (0.0-0.4); Eosinophils Percent Auto 2.3 % (0-4); Hematocrit 37.5 % (37.0-47.0); Hemoglobin 12.4 g/dl (12.0-16.0); Imm Gran Abs Auto 0.02 X10*3/uL (0.00-0.03); Imm Gran Pct Auto 0.2 % (0.0-0.4); Lymphocytes Absolute Auto 2.5 X10*3/uL (1.2-4.9); Lymphocytes Percent Auto 24.4 % (20-40); Mean Corpuscular HGB Conc 33.1 g/dl (31.0-35.0); Mean Corpuscular Hemoglobin 27.8 pg (27.0-33.0); Mean Corpuscular Volume 84.1 fL (80.0-98.0); Monocytes Absolute Auto 0.6 X10*3/uL (0.1-1.2); Monocytes Percent Auto 6.3 % (2-11); Neutrophils Absolute Auto 6.7 x10*3/uL (2.0-8.3); Neutrophils Percent Auto 66.4 % (45-73); Platelet Count 457 X10*3/uL (160-400); Red Blood Count 4.46 X10*6/uL (4.20-5.50); Red Cell Distribution Width 12.3 % (11.0-16.0)
[2022-03-12 17:20] LABS: Appearance Urine Clear; Color Urine Yellow; Glucose Urine UA >=1000 mg/dL (Negative); Leukocyte Esterase Urine Negative (Negative); Nitrite Urine Negative (Negative); PH 6.5 (5.0-9.0); Specific Gravity - Urine 1.025 (1.005-1.025); UMIC TRIGGER UACC YES; Urine Blood Negative (Negative); Urine Ketones Negative (Negative); Urine Protein 30 (1+) mg/dL (Neg-Trace)
[2022-03-12 17:21] LABS: Alanine Aminotransferase 24 U/L (0-31); Albumin Level 4.2 g/dL (3.5-5.0); Alkaline Phosphatase 138 U/L (39-117); Anion Gap 16 (12-20); Aspartate Amino Transferase 19 U/L (5-31); Bilirubin Total 0.4 mg/dL (0.0-1.0); Blood Urea Nitrogen 15 mg/dL (9-16); C Reactive Protein 1.11 mg/dL (< or = 0.50); Calcium 9.4 mg/dL (8.4-10.2); Carbon Dioxide 25 mmol/L (22-29); Chloride 99 mmol/L (96-108); Creatinine Clr Calc Pharmacy 48.8; Estimated Glomerular Filt Rate 56; Glucose Random 341 mg/dL (60-115); Magnesium 2.2 mg/dL (1.6-2.6); Potassium 4.6 mmol/L (3.3-5.1); Sodium 135 mmol/L (135-145); Total Protein 7.9 g/dL (6.5-8.0)
[2022-03-12 17:23] LABS: Bacteria Urine None Seen (None Seen); Hyaline Casts Urine 0-2 /LPF (0-2); RBC Urine 0-2 /HPF (0-2); Squamous Epithelial Cell Urine 0-2 /HPF (0-2); WBC Urine 0-5 /HPF (0-5)
[2022-03-12 17:38] LABS: Erythrocyte Sedimentation Rate 39 MM/HR (0-20)
--- NOTE | 2022-03-12 20:23 | PC.NURSE ---
Patient c/o joint pain in arms and back pain that rios sintensified in the last three days, also has a rash accompanied by pruritis on her arms and near her L leg; bm frequency has increased significantly denies diarrhea; denies n/v, h/o dmII, htn, strokes x2 (nov 2020 being the most recent); pt states she is on blood thinners
--- NOTE | 2022-03-12 20:33 | PC.NURSE ---
Pt is concerned as this is affecting ADLs
[2022-03-12] MEDS: traMADoL HCL 50 MG TABLET 25 MG PO (21:04)
[2022-03-12 21:05] VITALS: BP 180/98; PULSE 88; RESP 18; TEMP 36.8; O2SAT 99
--- NOTE | 2022-03-12 21:06 | PC.NURSE ---
Discharge instructions given and explained, pt ambulates safely and independently, pt medicated on discharge tramadol 25 mg, all pf pt's questions answered, no apparent distress
== END 2022-03-12 21:09 | disposition home or self-care (01) ==
PROVIDERS: Physician Assistant Medical; Emergency Provider Internal Medicine; PCP Internal Medicine
DX: M79.7 Fibromyalgia (principal); R21 Rash and other nonspecific skin eruption; L30.9 Dermatitis, unspecified; Z79.899 Other long term (current) drug therapy
CPT/HCPCS: 36415; 80053; 81001; 83735; 85025; 85652; 86140; 99284

== ENCOUNTER 2022-03-24 06:01 | Emergency (ER) | payer OTHER, SELFPAY ==
[2022-03-24 06:37] VITALS: BP 191/82; PULSE 89; RESP 18; TEMP 36.9; O2SAT 99; BMI 30.2
[2022-03-24 08:07] LABS: IDNOW Serial# 16C4AD1C
[2022-03-24 08:08] LABS: COVID-19 Test Negative (Negative); IDNOW Serial# 9DB6401D; Influenza A Positive (Negative); Influenza B2 Negative (Negative)
[2022-03-24 08:11] VITALS: BP 175/80; PULSE 82; RESP 18; TEMP 37.3; O2SAT 99
--- NOTE | 2022-03-24 09:09 | ED_ITS ---
HPI - General Adult General Chief complaint: General Medical Stated complaint: Flu, hard to swallow Time Seen by Provider: 03/24/22 08:36 Source: patient Mode of arrival: ambulatory Limitations: no limitations History of Present Illness HPI narrative: 61-year-old female with a past medical history of CVA, hypertension, hyperlipidemia diabetes, anemia, GERD, anxiety, depression, insomnia and lumbar degenerative disc disease?who presents with complaints of 1 week of flu-like symptoms worsened over the last 3 days with subjective fevers, chills, headache, sore throat. Patient is concerned she may also have a throat infection. No chest pain, shortness of breath, vomiting, diarrhea, abdominal pain. Her partner at home is sick with similar symptoms Related Data Home Medications Medication Instructions Recorded Confirmed fluoxetine 20 mg capsule 20 mg PO DAILY 11/12/20 01/17/22 lorazepam 0.5 mg tablet 0.5 mg PO DAILY PRN Anxiety 11/12/20 01/17/22 zolpidem 10 mg tablet 10 mg PO BEDTIME 11/12/20 01/17/22 potassium chloride 10 mEq 10 meq PO TID 06/06/21 01/17/22 tablet,extended release(part/cryst) fluticasone propionate 50 1 spray intranasal DAILY PRN 10/04/21 01/17/22 mcg/actuation nasal Allergy Symptoms spray,suspension (Flonase Allergy Relief) lancets (OneTouch UltraSoft 10/10/21 01/17/22 Lancets) Previous Rx's Medication Instructions Recorded BLOOD PRESSURE MONITOR #1 ea 11/26/20 lancets (OneTouch UltraSoft #200 ea 06/02/21 Lancets) diclofenac sodium 1 % topical gel 2 g topical QID 14 days #100 grams 07/26/21 (Arthritis Pain (diclofenac)) blood sugar diagnostic #100 ea 10/19/21 blood-glucose meter (OneTouch #1 ea 10/19/21 Ultra2 Meter kit) insulin glargine 100 unit/mL (3 14 unit (0.14 mL) subcut BEDTIME 11/29/21 mL) subcutaneous pen (Lantus #3 mL Solostar U-100 Insulin) pioglitazone 15 mg tablet (Actos) 15 mg PO DAILY #30 tabs 11/29/21 cephalexin 500 mg capsule 500 mg PO QID 7 days #28 caps 12/09/21 glimepiride 4 mg tablet 4 mg PO QAM #30 tabs 12/12/21 clopidogrel 75 mg tablet (Plavix) 75 mg PO DAILY 30 days #30 tabs 12/13/21 losartan 100 mg tablet 100 mg PO BEDTIME 30 days #30 tabs 12/13/21 nifedipine 30 mg tablet,extended 30 mg PO DAILY 30 days #30 tabs 12/13/21 release 24 hr aspirin 81 mg chewable tablet 81 mg PO DAILY #30 tabs 01/25/22 atorvastatin 80 mg tablet 80 mg PO BEDTIME #30 tabs 01/25/22 cholecalciferol (vitamin D3) 50 50 mcg PO DAILY #90 tabs 01/25/22 mcg (2,000 unit) tablet dulaglutide 1.5 mg/0.5 mL 1.5 mg (0.5 mL) subcut QWEEK #2 mL 01/25/22 subcutaneous pen injector (Eligible) gabapentin 400 mg capsule 400 mg PO BID #90 caps 01/25/22 blood sugar diagnostic (OneTouch #100 ea 01/31/22 Ultra Test strips) pen needle, diabetic 31 gauge x #100 ea 01/31/22 1/4 (Pen Needle) tramadol 50 mg tablet 50 mg PO Q6H PRN pain #20 tabs 03/12/22 Allergies Allergy/AdvReac Type Severity Reaction Status Date / Time ibuprofen [From Motrin] Allergy Mild STOMACH Verified 01/17/22 09:44 UPSET oxycodone [From Percocet] Allergy Mild ITCHING Verified 01/17/22 09:44 lactose [LACTOSE] Allergy Unknown ABD PAIN Verified 01/17/22 09:44 metformin AdvReac Unknown nausea, Verified 01/17/22 09:44 somnolence amlodipine AdvReac Swelling Verified 01/17/22 09:44 Review of Systems Review of Systems: Yes all other systems are reviewed and are negative Constitutional: Constitutional: Reports no additional constitutional complaints, Reports body ache(s), Reports chills, Reports fever(s), Denies he adache(s) and Denies weakness Eyes: Eyes: Reports no additional eye complaints and Denies change in vision ENT: Reports system reviewed and no additional complaints, except as documented, Denies dizziness, Denies headache(s), Denies nasal congestion, Denies nasal discharge, Denies neck pain and Reports sore throat Cardiovascular: Cardiovascular: Reports no additional cardiovascular complaints, Denies chest pain, Denies leg edema and Denies dyspnea Respiratory: Respiratory: Reports no additional respiratory complaints, Denies cough and Denies dyspnea Gastrointestinal: Gastrointestinal: Reports no additional gastrointestinal complaints, Denies abdominal pain, Denies diarrhea, Denies nausea and Denies vomiting Genitourinary: Genitourinary: Reports no additional female genitourinary complaints and Denies urinary incontinence Musculoskeletal: Musculoskeletal: Reports no additional musculoskeletal complaints, Denies back pain, Denies arthralgias, Denies joint swelling, Denies neck pain, Denies numbness and Denies tingling Integumentary/Breasts: Skin/Breast: Reports system reviewed and no additional complaints, except as docu and Denies rash Neurologic: Reports system reviewed and no additional complaints, except as documented, Denies dizziness, Denies headache(s), Denies numbness, Denies tingling and Denies weakness PMFSH Past Medical History Attestation statement: The following information was validated with the patient. Source: old records reviewed and nursing notes reviewed Medical History Anemia, iron deficiency Anxiety Benign essential hypertension CVA (cerebral vascular accident) Depression Diabetes Diabetes mellitus Fibromyalgia GERD without esophagitis HTN (hypertension) Insomnia Intracranial vascular stenosis Lumbar degenerative disc disease Obesity (BMI 30-39.9) Pure hypercholesterolemia Right thalamic stroke Sciatic pain Uncontrolled type 2 diabetes mellitus with hyperglycemia, with long-term current use of insulin Surgical History H/O bilateral breast reduction surgery History of appendectomy History of carpal tunnel release History of section History of hysterectomy History of left salpingo-oophorectomy History of surgery Family History Family History Father Suicide Epilepsy Mother Poor high blood pressure control Diabetes Hypertension Daughter Spina bifida Brother Stroke Other Mental health problem Social History Social History Household Members: Significant Other Housing: Apartment Do you presently have visiting nurse or other home services: No Alcohol intake: never Patient Tobacco Use Status: Never used Tobacco e-Cigarette/Vaping Use: Never Used Second Hand Smoke Exposure: Yes Advance Directives: No service: No Current occupational status: disabled Cognitive needs: Yes (cane) Hearing needs: No Vision needs: Yes (glasses) Physical Exam ED Vital Signs: Vital Signs - 24 hr 03/24/22 06:37 03/24/22 08:11 Temperature 98.4 F 99.1 F Pulse Rate 89 82 Respiratory Rate 18 18 Blood Pressure 191/82 H 175/80 H Pulse Oximetry 99 99 Oxygen Delivery Method Room Air Room Air BMI result Body Mass Index 30.2 Const General: cooperative, healthy appearing, comfortable and no acute distress Orientation/consciousness: patient oriented x3 Limitations: no limitations HENMT Head: Yes normal to inspection Ears: hearing grossly normal bilaterally and TM's normal bilaterally General nose exam: Normal external nose present Face and sinus: Yes normal facial exam Mouth: Normal oral and palatal mucosa present Throat: Yes posterior oropharynx normal, Yes tonsils normal and Yes uvula midline Eyes General: appearance normal, both eyes and all related structures Pupils: Equal, round and reactive pupils present Neck Neck: Yes normal visual inspection, Yes full ROM, Yes no lymphadenopathy and Yes no meningeal signs Chest Chest palpation & inspection: normal inspection of the chest Resp Effort & Inspection: normal respiratory effort Auscultation: clear to auscultation bilaterally Cardio Rate: regular rate Rhythm: regular rhythm Peripheral pulses: Peripheral pulses 2+ throughout GI Inspection: Yes normal to inspection Palpation (GI): Soft to palpation and nontender General: Yes no CVA tenderness Back/Spine/Pelvis Back: no CVA tenderness Thoracic/Lumbar Spine: thoracic and lumbar spine normal to inspection Skin General skin exam: no rashes or lesions noted Neuro General: patient oriented x3, moves all extremities and no meningeal signs Cranial nerves: Yes Equal, round and reactive pupils present Cognition (Neuro): normal cognition Gait exam (Neuro): Normal gait present Extrem General: Yes normal to inspection, Yes no pedal edema and Yes no calf tenderness Course Course Course Narrative: Flu screen is positive for influenza A. Testing for COVID and RSV are negative.. Exam not consistent with strep pharyngitis. Recommend supportive care at home. Reviewed worrisome signs and symptoms of when to return to the emergency room. Comfortable plan for discharge home. Medical Decision Making Medical Decision Making [facility] Narrative: 7-year-old female here with flu-like symptoms intermittent over the last 1 week worsened over the last 3 days with sick contact at home. On arrival vitals are stable. Exam is normal. Lungs are clear. Abdomen soft nontender. No meningeal signs. Will send testing for flu, COVID, RSV Differential Diagnoses: Differential diagnosis (Viral syndrome, pharyngitis) Lab Attestation: I reviewed the patient's lab results. (Flu A positive) Prescription medication was considered but ultimately not given after discussion with patient/family. (e.g., pain medication, antiviral, antibiotic): Prescriptions considered but not given (Tamiflu discussed the patient not helpful at this time due to length of symptoms) Discharge Plan Discharge Clinical Impression: Influenza A Patient Disposition: Home, Self-Care Instructions: Influenza (ED) Additional Instructions: Flu screen is positive. At this point we discussed that tamiflu would not be helpful. Testing for covid and rsv are negative. Alternate motrin/tylenol for pain or fever. Increase fluids at home. Prescriptions: No Action (DME) lancets [OneTouch UltraSoft Lancets] Misc See Rx Instructions .Route Qty: 200 0RF Rx Instructions: test 3x day diclofenac sodium [Arthritis Pain (diclofenac)] 1 % gel 2 g topical QID 14 Days Qty: 100 0RF Rx Instructions: apply to single elbow, wrist or hand; for hand includes palm/fingers/back of hand (DME) lancets [OneTouch UltraSoft Lancets] Misc See Rx Instructions .Route Rx Instructions: As directed- To test blood sugar TID insulin glargine [Lantus Solostar U-100 Insulin] 100 unit/mL (3 mL) insulin pen 14 unit subcut BEDTIME Qty: 3 0RF glimepiride 4 mg tablet 4 mg PO QAM Qty: 30 1RF clopidogrel [Plavix] 75 mg tablet 75 mg PO DAILY 30 Days Qty: 30 3RF losartan 100 mg tablet 100 mg PO BEDTIME 30 Days Qty: 30 3RF nifedipine 30 mg tablet extended release 24hr 30 mg PO DAILY 30 Days Qty: 30 3RF Protocol: Hold for SBP< HOLD for SBP < : 90 Trulicity 1.5 mg/0.5 mL pen injector 1.5 mg subcut QWEEK Qty: 2 0RF atorvastatin 80 mg tablet 80 mg PO BEDTIME Qty: 30 3RF aspirin 81 mg tablet,chewable 81 mg PO DAILY Qty: 30 3RF gabapentin 400 mg capsule 400 mg PO BID Qty: 90 1RF cholecalciferol (vitamin D3) 50 mcg (2,000 unit) tablet 50 mcg PO DAILY Qty: 90 3RF (DME) pen needle, diabetic [Pen Needle] 31 gauge x 1/4 needle See Rx Instructions .Route Qty: 100 3RF Rx Instructions: As directed daily (DME) OneTouch Ultra Test Strip See Rx Instructions .Route Qty: 100 12RF Rx Instructions: As directed - to test blood sugar TID fluticasone propionate [Flonase Allergy Relief] 50 mcg/actuation spray,suspension 1 spray intranasal DAILY PRN (Reason: Allergy Symptoms) Rx Instructions: administer into each nostril tramadol 50 mg tablet 50 mg PO Q6H PRN (Reason: pain) Qty: 20 0RF potassium chloride 10 mEq tablet,ER particles/crystals 10 meq PO TID fluoxetine 20 mg capsule 20 mg PO DAILY zolpidem 10 mg tablet 10 mg PO BEDTIME lorazepam 0.5 mg tablet 0.5 mg PO DAILY PRN (Reason: Anxiety) (DME) BLOOD PRESSURE MONITOR See Rx Instructions .Route .MEDSUPPLY Qty: 1 0RF Rx Instructions: As directed (DME) blood sugar diagnostic Strip See Rx Instructions .Route Qty: 100 12RF Rx Instructions: As directed- 3 times daily (DME) blood-glucose meter [OneTouch Ultra2 Meter] Kit See Rx Instructions .Route Qty: 1 0RF Rx Instructions: As directed- To test blood sugar TID cephalexin 500 mg capsule 500 mg PO QID 7 Days Qty: 28 0RF pioglitazone [Actos] 15 mg tablet 15 mg PO DAILY Qty: 30 4RF Referrals: Michael Peoples MD [Primary Care Provider] - 1 week (as needed) Interventions: ED Discharge Assessment Last Done: 03/24/22 10:02 Discharge Date/Time: 03/24/22 10:03
== END 2022-03-24 10:03 | disposition home or self-care (01) ==
PROVIDERS: Emergency Provider Emergency Medicine Emergency Medical Services; PCP Internal Medicine
DX: J10.1 Influenza due to other identified influenza virus with other respiratory manifestations (principal); Z20.822 Contact with and (suspected) exposure to COVID-19; Z79.899 Other long term (current) drug therapy
CPT/HCPCS: 87502; 87635; 99283

== ENCOUNTER 2022-04-21 13:26 | Outpatient (REF) | payer OTHER, SELFPAY ==
--- NOTE | ~2022-04-21 | US_ITS ---
EXAMINATION: US VENOUS ULTRASOUND WITH DOPPLER LOWER EXTREMITY, BILATERAL CLINICAL INFORMATION: Lower extremity pain and edema. COMPARISON: None TECHNIQUE: Ultrasound of the deep veins is performed from the hip to the calf with compression sonography and color and pulse Doppler assessment. Spectral analysis with color-flow imaging is performed. FINDINGS: RIGHT: There is normal venous compression and respiratory variation and augmented flow. The visualized common femoral vein, superficial femoral vein, profunda femoral vein, popliteal vein, and the trifurcation region shows no evidence of deep venous thrombosis. There is no significant popliteal fossa cyst. LEFT: There is normal venous compression and respiratory variation and augmented flow. The visualized common femoral vein, superficial femoral vein, profunda femoral vein, popliteal vein, and the trifurcation region shows no evidence of deep venous thrombosis. There is no significant popliteal fossa cyst. If the patient's symptoms persist, followup ultrasound in 5 days 7 days might be of value to exclude proximal propagation from a non-visualized calf vein. US/US venous duplex LE BI IMPRESSION: No DVT demonstrated in the bilateral lower extremities.
== END 2022-04-21 13:27 | disposition home or self-care (01) ==
LOC: HO.US 13:26
PROVIDERS: PCP Internal Medicine; Visit Provider Internal Medicine
DX: M79.606 Pain in leg, unspecified (principal); R60.0 Localized edema; M79.89 Other specified soft tissue disorders
CPT/HCPCS: 93970

== ENCOUNTER 2022-05-03 11:26 | Outpatient (REF) | payer OTHER, SELFPAY ==
--- NOTE | ~2022-05-03 | US_ITS ---
EXAMINATION: ARTERIAL DUPLEX BILATERAL LEGS CLINICAL INFORMATION: Pain in both legs. COMPARISON: None TECHNIQUE: Duplex Doppler of the bilateral lower extremity arterial systems was performed. FINDINGS: RIGHT: Common femoral: PSV 118 cm/s. Triphasic waveform. Deep femoral: PSV 99 cm/s. Biphasic waveform. Proximal superficial femoral: PSV 93 cm/s. Biphasic waveform. Mid superficial femoral: PSV 175 cm/s. Biphasic waveform. Distal superficial femoral: PSV 69 cm/s. Biphasic waveform. Popliteal: PSV 102 cm/s. Biphasic waveform. Posterior tibial: PSV 222 cm/s. Biphasic waveform. Peroneal: PSV 60 cm/s. Biphasic waveform. LEFT: Common femoral: PSV 90 cm/s. Biphasic waveform. Deep femoral: PSV 60 cm/s. 8 waveform. Proximal superficial femoral: PSV 85 cm/s. Biphasic waveform. Mid superficial femoral: PSV 127 cm/s. Biphasic waveform. Distal superficial femoral: PSV 103 cm/s. Biphasic waveform. Popliteal: PSV 76 cm/s. Biphasic waveform. Posterior tibial: PSV 213 cm/s. Biphasic waveform. Peroneal: PSV 78 cm/s. Biphasic waveform. US/US arterial duplex LE BI IMPRESSION: No evidence of hemodynamically significant inflow disease or femoropopliteal disease bilaterally. Elevated velocities in the proximal posterior tibial arteries bilaterally consistent with moderate posterior tibial disease, however the peroneal arteries have normal waveforms bilaterally so doubt these are of clinical significance. If the patient has calf claudication consider PAWEL/PVR exam post exercise.
== END 2022-05-03 11:27 | disposition home or self-care (01) ==
LOC: HO.US 11:26
PROVIDERS: PCP Internal Medicine; Visit Provider Internal Medicine
DX: M79.604 Pain in right leg (principal); M79.605 Pain in left leg; M79.89 Other specified soft tissue disorders; I73.9 Peripheral vascular disease, unspecified
CPT/HCPCS: 93925

== ENCOUNTER 2022-05-05 13:54 | Outpatient (REF) | payer OTHER, SELFPAY ==
--- NOTE | ~2022-05-05 | US_ITS ---
EXAMINATION: US ABDOMEN COMPLETE CLINICAL INFORMATION: Unspecified abdominal pain. COMPARISON: CT abdomen and pelvis noncontrast 07/09/2020. Ultrasound abdomen complete 03/28/2016. TECHNIQUE: Real-time imaging of the abdominal viscera. Technically limited study secondary to motion artifact. FINDINGS: PANCREAS: The visualized pancreas shows normal contour and echogenicity with no pancreatic ductal distention or retroperitoneal effusion. Pancreatic tail is obscured by bowel gas and not completely imaged. ABDOMINAL AORTA: The proximal, mid, and distal segments are normal in caliber. INFERIOR VENA CAVA: Visualized portions are normal. LIVER: The liver is within limits of normal size and smooth in contour. No focal hepatic parenchymal lesion. No intrahepatic biliary ductal dilatation. Color Doppler shows portal flow towards the liver. GALLBLADDER: Surgically absent. COMMON BILE DUCT: Not visualized. RIGHT KIDNEY: Normal. No hydronephrosis. No visible calculi. Parapelvic cyst 1.0 cm interpolar region. No additional imaging follow-up recommended. The kidney measures 10.8 cm in maximum dimension. LEFT KIDNEY: Normal. No hydronephrosis. No visible calculi. The kidney measures 10.7 cm in maximum dimension. SPLEEN: Normal. The spleen measures 8.8 cm in maximum dimension. FREE FLUID: None. US/US abdomen complete IMPRESSION: 1. Prior cholecystectomy. Common duct not visualized. No intrahepatic ductal dilatation. 2. No hydronephrosis. No visible calculi.
== END 2022-05-05 13:55 | disposition home or self-care (01) ==
LOC: HO.US 13:54
PROVIDERS: Visit Provider Internal Medicine
DX: R10.9 Unspecified abdominal pain (principal)
CPT/HCPCS: 76700

== ENCOUNTER → 2022-05-16 15:20 | Outpatient (BNVA) | payer OTHER, SELFPAY | PROVIDERS: PCP Internal Medicine; Visit Provider Surgery Vascular Surgery | DX: I83.11 Varicose veins of right lower extremity with inflammation (principal); I89.0 Lymphedema, not elsewhere classified | CPT/HCPCS: 99212 ==

== ENCOUNTER 2022-05-31 12:51 | Outpatient (REF) | payer OTHER, SELFPAY ==
--- NOTE | ~2022-05-31 | US_ITS ---
EXAMINATION: US VENOUS BILATERAL LOWER EXTREMITIES (REFLUX EXAM) CLINICAL INDICATION: Leg pain and varicose veins. COMPARISON: None. TECHNIQUE: Color flow triplex imaging and compression Doppler was performed to evaluate both the deep and the superficial systems bilaterally. To evaluate the superficial system, the examination was performed in the upright position. Color-flow Doppler ultrasound and compression ultrasound were utilized. In addition, maneuvers were utilized to demonstrate reflux. FINDINGS: 1. DEEP VENOUS ULTRASOUND OF THE RIGHT LOWER EXTREMITY: Respiratory variation, normal compression and augmented flow are noted in the right common femoral vein as well as the right popliteal vein and there is no evidence of deep venous thrombosis at these locations. There is no evidence of reflux in the deep system in either the common femoral vein or the popliteal vein. There is no evidence of a Miller's cyst. 2. SUPERFICIAL ULTRASOUND WITH DOPPLER OF RIGHT LOWER EXTREMITY: The right great saphenous vein at the saphenofemoral junction measures 3 mm, at the proximal thigh 5 mm, at the mid thigh 2 mm, above the knee 2 mm, at the knee 1 mm, [id number] 2 mm, midcalf 1 mm and at the ankle measures 1 mm. There is no reflux demonstrated in the right great saphenous vein. DUPLICATED RIGHT GREAT SAPHENOUS VEIN: None. The right small saphenous vein measures 3 mm and shows no reflux. ACCESSORY VEIN OF GIACOMINI: None. INCOMPETENT PERFORATORS: None. VARICES PRESENT: None. 3. DEEP VENOUS ULTRASOUND OF THE LEFT LOWER EXTREMITY: Respiratory variation, normal compression and augmented flow are noted in the left common femoral vein as well as the left popliteal vein and there is no evidence of deep venous thrombosis at these locations. There is no evidence of reflux in the deep system in either the common femoral vein or the popliteal vein. There is no evidence of a Miller's cyst. 4. SUPERFICIAL ULTRASOUND WITH DOPPLER OF LEFT LOWER EXTREMITY: Left great saphenous vein at the saphenofemoral junction measures 6 mm, at the proximal thigh 4 mm, at the mid thigh 2 mm, above the knee 2 mm, at the knee 1 mm, [id number] 2 mm, midcalf 1 mm and at the ankle measures 2 mm. Segmental reflux is noted at the ankle only for 2 seconds. DUPLICATED LEFT GREAT SAPHENOUS VEIN: There is a 2 mm lateral accessory saphenous that does not reflux. The left small saphenous vein measures 3 mm and shows no reflux. ACCESSORY VEIN OF GIACOMINI: None. INCOMPETENT PERFORATORS: None. VARICES PRESENT: None. US/US venous duplex LE BI IMPRESSION: 1. No evidence of reflux or thrombus in the common femoral veins or popliteal veins bilaterally. 2. There is segmental reflux present in the left great saphenous vein at the ankle only.
== END 2022-05-31 12:52 | disposition home or self-care (01) ==
LOC: HO.US 12:51
PROVIDERS: Visit Provider Surgery Vascular Surgery
DX: I83.893 Varicose veins of bilateral lower extremities with other complications (principal)
CPT/HCPCS: 93970

== ENCOUNTER 2022-06-14 11:38 | Outpatient (REF) | payer OTHER, SELFPAY ==
--- NOTE | ~2022-06-14 | MM_ITS ---
EXAMINATION: MM SCREENING DIGITAL BREAST TOMOSYNTHESIS, BILATERAL CLINICAL INFORMATION: Screening. Asymptomatic. The lifetime risk of breast cancer based on the Tyrer-Cuzick Model is 4%. COMPARISON: Mammography: 01/17/2019, 10/12/2017 TECHNIQUE: Digital breast tomosynthesis is performed in both the craniocaudal and mediolateral oblique views along with computer-aided detection (CAD). Synthesized 2D images are generated from the tomosynthesis. FINDINGS: There are scattered areas of fibroglandular density (ACR BI-RADS breast composition Category b). There are no significant masses, abnormal calcifications, or other abnormalities. Breast tissue composition borders on predominantly fatty. Background stromal markings are stable. No developing density or architectural abnormality. MM/MM tomosynthesis screening BI IMPRESSION: No mammographic evidence of malignancy. ASSESSMENT: BI-RADS 1: Negative RECOMMENDATION: Routine annual mammography screening. This patient's information was entered into a reminder system with a target due date for their next mammogram.
== END 2022-06-14 11:39 | disposition home or self-care (01) ==
LOC: HO.MAMMO 11:38
PROVIDERS: PCP Internal Medicine; Visit Provider Internal Medicine
DX: Z12.31 Encounter for screening mammogram for malignant neoplasm of breast (principal)
CPT/HCPCS: 77063; 77067

== ENCOUNTER 2022-06-20 06:05 | Outpatient (REF) | payer OTHER, SELFPAY ==
[2022-06-20 06:19] LABS: MANUAL DIFF FLAG NO
[2022-06-20 07:47] LABS: Basophils Absolute Auto 0.1 X10*3/uL (0.0-0.2); Basophils Percent Auto 0.5 % (0-2); Eosinophils Absolute Auto 0.2 X10*3/uL (0.0-0.4); Eosinophils Percent Auto 2.1 % (0-4); Hematocrit 36.6 % (37.0-47.0); Hemoglobin 11.8 g/dl (12.0-16.0); Imm Gran Abs Auto 0.03 X10*3/uL (0.00-0.03); Imm Gran Pct Auto 0.3 % (0.0-0.4); Lymphocytes Percent Auto 26.7 % (20-40); Mean Corpuscular HGB Conc 32.2 g/dl (31.0-35.0); Mean Corpuscular Hemoglobin 27.3 pg (27.0-33.0); Mean Corpuscular Volume 84.7 fL (80.0-98.0); Mean Platelet Volume 9.5 fL (9.4-12.3); Monocytes Absolute Auto 0.8 X10*3/uL (0.1-1.2); Neutrophils Absolute Auto 7.2 x10*3/uL (2.0-8.3); Neutrophils Percent Auto 63.4 % (45-73); Platelet Count 500 X10*3/uL (160-400); Red Blood Count 4.32 X10*6/uL (4.20-5.50); Red Cell Distribution Width 12.9 % (11.0-16.0); White Blood Count 11.4 X10*3/uL (4.8-10.8)
[2022-06-20 07:56] LABS: Estimated Average Glucose 223 mg/dL; Hemoglobin A1c % 9.4 %
[2022-06-20 08:22] LABS: Alanine Aminotransferase 20 U/L (0-31); Albumin Level 4.1 g/dL (3.5-5.0); Alkaline Phosphatase 134 U/L (39-117); Anion Gap 16 (12-20); Aspartate Amino Transferase 18 U/L (5-31); Bilirubin Total 0.5 mg/dL (0.0-1.0); Blood Urea Nitrogen 10 mg/dL (9-16); Calcium 9.2 mg/dL (8.4-10.2); Carbon Dioxide 27 mmol/L (22-29); Chloride 99 mmol/L (96-108); Cholesterol 153 mg/dL; Estimated Glomerular Filt Rate > 60; Glucose Fasting 201 mg/dL (60-99); HDL Cholesterol 46 mg/dL; LDL Cholesterol Calculated 86 mg/dl; Potassium 4.5 mmol/L (3.3-5.1); Sodium 137 mmol/L (135-145); Total Protein 7.4 g/dL (6.5-8.0); Triglycerides 107 mg/dL
[2022-06-20 08:40] LABS: TSH reflex Free T4 3.17 uIU/mL (0.32-4.0); Vitamin D 25-OH Total 38.2 ng/mL (>30)
[2022-06-20 08:50] LABS: Color Urine Yellow; Glucose Urine UA 100 mg/dL (Negative); Leukocyte Esterase Urine Moderate (2+) (Negative); Nitrite Urine Negative (Negative); UMIC TRIGGER UACC YES; Urine Blood Negative (Negative); Urine Ketones Negative (Negative); Urine Protein 30 (1+) mg/dL (Neg-Trace)
[2022-06-20 08:52] LABS: Creatinine Urine 64.04 mg/dL; Microalbum/Creatinine Ratio Ur 162.3 ug/mg cr
[2022-06-20 08:53] LABS: Appearance Urine Clear
[2022-06-20 08:55] LABS: Bacteria Urine None Seen (None Seen); Hyaline Casts Urine 0-2 /LPF (0-2); RBC Urine 0-2 /HPF (0-2); Squamous Epithelial Cell Urine 0-2 /HPF (0-2); WBC Urine 0-5 /HPF (0-5)
== END 2022-06-20 06:06 | disposition home or self-care (01) ==
LOC: HO.LAB 06:05
PROVIDERS: PCP Internal Medicine; Visit Provider Internal Medicine
DX: E78.00 Pure hypercholesterolemia, unspecified (principal); E11.9 Type 2 diabetes mellitus without complications; E55.9 Vitamin D deficiency, unspecified; R30.0 Dysuria; I10 Essential (primary) hypertension
CPT/HCPCS: 36415; 80053; 80061; 81001; 82043; 82306; 83036; 84443; 85025

== ENCOUNTER → 2022-06-22 14:56 | Outpatient (BNVA) | payer OTHER, SELFPAY | PROVIDERS: PCP Internal Medicine; Visit Provider Surgery Vascular Surgery | DX: M79.606 Pain in leg, unspecified (principal); M79.89 Other specified soft tissue disorders | CPT/HCPCS: 99212 ==

== ENCOUNTER 2022-07-08 17:42 | Emergency (ER) | payer OTHER, SELFPAY ==
--- NOTE | ~2022-07-08 | XR_ITS ---
EXAMINATION: XR CHEST CLINICAL INFORMATION: Chest pain for 2 days COMPARISON: 11/21/2020 TECHNIQUE: Frontal view of the chest was obtained. FINDINGS: No significant abnormality is noted involving the heart, lungs, mediastinum, bony thorax or soft tissues. XR/XR chest 1V IMPRESSION: Unremarkable examination.
--- NOTE | 2022-07-08 17:49 | ECG_ITS ---
Test Reason : CHEST PAIN Blood Pressure : / mmHG Vent. Rate : 094 BPM Atrial Rate : 094 BPM P-R Int : 136 ms QRS Dur : 080 ms QT Int : 380 ms P-R-T Axes : 038 -10 017 degrees QTc Int : 475 ms Normal sinus rhythm Minimal voltage criteria for LVH, may be normal variant ( R in aVL ) Borderline ECG When compared to the previous EKG of No significant changes seen Referred By: Denisha Wray Electronically Signed By:NILTON MCDUFFIE MD
--- NOTE | 2022-07-08 17:49 | ED_ITS ---
HPI - Chest Pain General Chief Complaint: Chest Pain <YENNIFER Maddox - Last Filed: 07/08/22 17:58> Stated Complaint: Chest/back pain/headache <YENNIFER Maddox - Last Filed: 07/08/22 17:58> Time Seen by Provider: 07/08/22 18:43 <YENNIFER Maddox - Last Filed: 07/08/22 17:58> Source: patient <Jyothi Bhatia MD - Last Filed: 07/08/22 19:22> Mode of arrival: ambulatory <Jyothi Bhatia MD - Last Filed: 07/08/22 19:22> Limitations: no limitations <Jyothi Bhatia MD - Last Filed: 07/08/22 19:22> History of Present Illness HPI narrative: Patient comes emergency room complaining of couple days of chest pain with coughing. Also complaining of bilateral back pain, no hematuria or dysuria. Patient denies fever chills. Patient denies shortness of breath. <Jyothi Bhatia MD - Last Filed: 07/08/22 19:22> Related Data Home Medications: Home Medications Medication Instructions Recorded Confirmed fluoxetine 20 mg capsule 20 mg PO DAILY 11/12/20 06/19/22 lorazepam 0.5 mg tablet 0.5 mg PO DAILY PRN Anxiety 11/12/20 06/19/22 zolpidem 10 mg tablet 10 mg PO BEDTIME 11/12/20 06/19/22 fluticasone propionate 50 1 spray intranasal DAILY PRN 10/04/21 06/19/22 mcg/actuation nasal Allergy Symptoms spray,suspension (Flonase Allergy Relief) Previous Rx's Medication Instructions Recorded BLOOD PRESSURE MONITOR #1 ea 11/26/20 lancets (ReTenantTouch UltraSoft #200 ea 06/02/21 Lancets) diclofenac sodium 1 % topical gel 2 g topical QID 14 days #100 grams 07/26/21 (Arthritis Pain (diclofenac)) blood sugar diagnostic #100 ea 10/19/21 blood-glucose meter (Storieuch #1 ea 10/19/21 Ultra2 Meter kit) insulin glargine 100 unit/mL (3 14 unit (0.14 mL) subcut BEDTIME 11/29/21 mL) subcutaneous pen (Lantus #3 mL Solostar U-100 Insulin) pioglitazone 15 mg tablet (Actos) 15 mg PO DAILY #30 tabs 11/29/21 cholecalciferol (vitamin D3) 50 50 mcg PO DAILY #90 tabs 01/25/22 mcg (2,000 unit) tablet blood sugar diagnostic (OneTouch #100 ea 01/31/22 Ultra Test strips) pen needle, diabetic 31 gauge x #100 ea 01/31/22 1/ (Pen Needle) losartan 100 mg tablet 100 mg PO BEDTIME 30 days #30 tabs 04/28/22 nifedipine 30 mg tablet,extended 30 mg PO DAILY 30 days #30 tabs 04/28/22 release 24 hr dulaglutide 1.5 mg/0.5 mL 1.5 mg (0.5 mL) subcut QWEEK #2 mL 04/29/22 subcutaneous pen injector ([employer]) aspirin 81 mg chewable tablet 81 mg PO DAILY #30 tabs 05/29/22 atorvastatin 80 mg tablet 80 mg PO BEDTIME #30 tabs 05/29/22 clopidogrel 75 mg tablet (Plavix) 75 mg PO DAILY 30 days #30 tabs 05/29/22 gabapentin 400 mg capsule 400 mg PO BID #90 caps 05/29/22 lancets (OneTouch UltraSoft #200 ea 06/19/22 Lancets) glimepiride 4 mg tablet 4 mg PO QAM #30 tabs 06/29/22 benzonatate 100 mg capsule 100 mg PO TID PRN cough #14 caps 07/08/22 cefuroxime axetil 500 mg tablet 500 mg PO BID #14 tabs 07/08/22 <YENNIFER Maddox - Last Filed: 07/08/22 17:58> Allergies/Adverse Reactions: Allergies Allergy/AdvReac Type Severity Reaction Status Date / Time ibuprofen [From Motrin] Allergy Mild STOMACH Verified 06/22/22 15:01 UPSET oxycodone [From Percocet] Allergy Mild ITCHING Verified 06/22/22 15:01 lactose [LACTOSE] Allergy Unknown ABD PAIN Verified 06/22/22 15:01 metformin AdvReac Unknown nausea, Verified 06/22/22 15:01 somnolence amlodipine AdvReac Swelling Verified 06/22/22 15:01 <YENNIFER Maddox - Last Filed: 07/08/22 17:58> Review of Systems Review of Systems: Constitutional : No Weight loss, No Fever, No Chills, No Night Sweats, No Fatigue, No Malaise ENT/Mouth : No Hearing loss, No Ear Pain, No Nasal Congestion, No Sinus Pain, No Hoarseness, No sore throat, No Rhinorrhea, No Swallowing Difficulty Eyes: No Eye Pain, No Swelling, No Redness, No Foreign Body, No Discharge, No V ision Changes Cardiovascular : Pain with inspiration or cough, otherwise no chest pain, No SOB, No Dyspnea on Exertion, No Orthopnea, No Edema, No Palpitations Respiratory : No Cough, No Sputum, No Wheezing, No Smoke Exposure, No Dyspnea Gastrointestinal : No Nausea, No Vomiting, No Diarrhea, No Constipation, No abdominal Pain, No Hematochezia, No Melena Genitourinary : no irregular bleeding, No Dysuria, No Urinary Frequency, No Hematuria, No Urinary Incontinence, No Urgency, No Flank Pain, No Urinary Flow Changes, No Hesitancy Musculoskeletal : Complaining of bilateral lower back pain, No joint pain, No Myalgias, No Joint Swelling Skin : No Skin Lesions, No rash Neuro : No Weakness, No Numbness, No Paresthesias, No Loss of Consciousness, No Dizziness, No Headache Psych : No Anxiety/Panic, No Depression, No SI/HI/AH/VH, No Social Issues, Heme/Lymph: No Bruising, No Bleeding,No Lymphadenopathy Endocrine : No Polyuria, No Polydipsia, No Temperature Intolerance <Jyothi Bhatia MD - Last Filed: 07/08/22 19:22> FORMERLY [facility] Past Medical History Medical History: Medical History Anemia, iron deficiency Anxiety Benign essential hypertension CVA (cerebral vascular accident) Depression Diabetes Diabetes mellitus Fibromyalgia GERD without esophagitis HTN (hypertension) Insomnia Intracranial vascular stenosis Lumbar degenerative disc disease Obesity (BMI 30-39.9) Pure hypercholesterolemia Right thalamic stroke Sciatic pain Uncontrolled type 2 diabetes mellitus with hyperglycemia, with long-term current use of insulin <YENNIFER Maddox - Last Filed: 07/08/22 17:58> Surgical History: Surgical History H/O bilateral breast reduction surgery History of appendectomy History of carpal tunnel release History of section History of hysterectomy History of left salpingo-oophorectomy History of surgery <YENNIFER Maddox - Last Filed: 07/08/22 17:58> Family History Family History: Family History Father Suicide Epilepsy Mother Poor high blood pressure control Diabetes Hypertension Daughter Spina bifida Brother Stroke Other Mental health problem <YENNIFER Maddox - Last Filed: 07/08/22 17:58> Social History Social History: Social History Household Members: Significant Other Housing: Apartment Do you presently have visiting nurse or other home services: No Alcohol intake: never Patient Tobacco Use Status: Never used Tobacco e-Cigarette/Vaping Use: Never Used Second Hand Smoke Exposure: Yes Advance Directives: No Advance Directives Information Provided: No service: No Current occupational status: disabled Cognitive needs: Yes (cane) Hearing needs: No Vision needs: Yes (glasses) <YENNIFER Maddox - Last Filed: 07/08/22 17:58> Physical Exam Vital Signs: Vital Signs: Last Vital Signs Temp 98.8 F 07/08/22 18:31 Pulse 89 07/08/22 18:31 Resp 16 07/08/22 18:31 BP 152/73 H 07/08/22 18:31 Pulse Ox 98 07/08/22 18:31 O2 Del Method Room Air 07/08/22 18:31 BMI result Body Mass Index 32.3 <YENNIFER Maddox - Last Filed: 07/08/22 17:58> Vital Signs: Last Vital Signs Temp 98.8 F 07/08/22 18:31 Pulse 89 07/08/22 18:31 Resp 16 07/08/22 18:31 BP 152/73 H 07/08/22 18:31 Pulse Ox 98 07/08/22 18:31 O2 Del Method Room Air 07/08/22 18:31 BMI result Body Mass Index 32.3 <Jyothi Bhatia MD - Last Filed: 07/08/22 19:22> Const: Other: Appearance: Alert. Oriented X3. No acute distress. Well-appearing Eyes: Pupils equal, round and reactive to light. ENT: Pharynx normal. Neck: Normal inspection. Neck supple. No lymph nodes noted. No crepitus CVS: Normal heart rate and rhythm. Pulses normal. Normal S1 and S2 Respiratory: No respiratory distress. Breath sounds normal. No Wheezing. No rales Abdomen: Soft and nontender. No rigidity. No distention. Bilateral flank pain Skin: Skin warm and dry. Normal skin color. Normal skin turgor. Extremities: No lower extremity edema. No Lacerations. No Rash Neuro: Oriented X 3. No motor deficit. No sensory deficit. Moving all extremities. No slurred speech. CN 2 through 12 grossly intact Psych: calm, cooperative, normal affect <Jyothi Bhatia MD - Last Filed: 07/08/22 19:22> Course Course Course Narrative: MAYNOR--61-year-old female with a past medical history anxiety, CVA, diabetes, fibromyalgia, GERD, HTN, HLD, CVA, on Plavix and aspirin, presenting to the ED complaining of chest pain worse with deep inspiration and movement radiating to back, worsening since yesterday. Reports pain makes her SOB. Patient appears very uncomfortable, pain elicited on any breathing/movement. Patient hypertensive, blood pressure is equally elevated in both upper extremities. EKG, labs, CXR including D-dimer ordered. Patient will be brought back to main ED immediately <YENNIFER Maddox - Last Filed: 07/08/22 17:58> Medical Decision Making Medical Decision Making MDM Narrative: -patient's D-dimer at baseline, 253. Corrected for age, negative. For patient, greater than 300 with a positive -troponin negative -my interpretation of EKG: Sinus rhythm, heart rate 94, no ST segment depression or elevation, nonspecific T-wave inversion in lead 3, QTC 475 -patient has reproducible chest pain on palpation -patient's urine is positive for UTI. Given that she has bilateral lower back pain, mild flank pain, we will go ahead treat as pyelonephritis. Sepsis not suspected, white blood cell count at baseline, no fever, no chills, normal blood pressure <Jyothi Bhatia MD - Last Filed: 07/08/22 19:22> Differential Diagnosis Differential Diagnoses: The differential diagnosis associated with the presentation includes (Pneumonia, bronchitis, viral illness or COVID) <Jyothi Bhatia MD - Last Filed: 07/08/22 19:22> Lab Data [facility] Lab Attestation statement: I reviewed the patient's lab results. <Jyothi Bhatia MD - Last Filed: 07/08/22 19:22> Result Diagrams: 07/08/22 18:17 07/08/22 18:17 <YENNIFER Maddox - Last Filed: 07/08/22 17:58> Labs: Lab Results 07/08/22 07/08/22 07/08/22 Range/Units 18:17 18:17 18:17 WBC 11.8 H (4.8-10.8) X10*3/uL RBC 4.36 (4.20-5.50) X10*6/uL Hgb 12.0 (12.0-16.0) g/dl Hct 36.3 L (37.0-47.0) % MCV 83.3 (80.0-98.0) fL MCH 27.5 (27.0-33.0) pg MCHC 33.1 (31.0-35.0) g/dl RDW 13.0 (11.0-16.0) % Plt Count 503 H (160-400) X10*3/uL MPV 9.0 L (9.4-12.3) fL Immature Gran % (Auto) 0.8 H (0.0-0.4) % Neut % (Auto) 61.1 (45-73) % Lymph % (Auto) 29.0 (20-40) % [facility] % (Auto) 6.9 (2-11) % Eos % (Auto) 1.8 (0-4) % Baso % (Auto) 0.4 (0-2) % Lymph # (Auto) 3.4 (1.2-4.9) X10*3/uL [facility] [place] # (Auto) 0.8 (0.1-1.2) X10*3/uL Eos # (Auto) 0.2 (0.0-0.4) X10*3/uL Baso # (Auto) 0.1 (0.0-0.2) X10*3/uL Abs Immat Gran (auto) 0.10 H (0.00-0.03) X10*3/uL Absolute Neuts (auto) 7.2 (2.0-8.3) x10*3/uL Absolute Nucleated RBC 0.000 (0.0-0.012) X10*3/uL Nucleated RBC % (auto) 0.0 (0.0-0.2) /100WBC PT (10.0-13.1) SEC INR (0.9-1.1) D-Dimer High Sensitivty NG/ML Sodium 140 (135-145) mmol/L Potassium 3.8 (3.3-5.1) mmol/L Chloride 101 (96-108) mmol/L Carbon Dioxide 26 (22-29) mmol/L Anion Gap 17 (12-20) BUN 14 (9-16) mg/dL Creatinine 0.94 (0.5-1.4) mg/dL Estim Creat Clear Calc 55.2 Estimated GFR > 60 Random Glucose 229 H (60-115) mg/dL Calcium 9.4 (8.4-10.2) mg/dL Magnesium 2.1 (1.6-2.6) mg/dL Total Bilirubin 0.3 (0.0-1.0) mg/dL Direct Bilirubin < 0.2 (0.0-0.5) mg/dL AST 18 (5-31) U/L ALT 23 (0-31) U/L Alkaline Phosphatase 134 H (39-117) U/L Troponin I High Sens < 3.5 (<3.5-17.0) ng/L B-Natriuretic Peptide (<100) pg/mL Total Protein 7.5 (6.5-8.0) g/dL Albumin 4.1 (3.5-5.0) g/dL Lipase 48 (8-78) U/L Urine Color Urine Appearance Urine pH (5.0-9.0) Ur Specific [place] (1.005-1.025) Urine Protein (Neg-Trace) mg/dL Urine Glucose (UA) (Negative) mg/dL Urine Ketones (Negative) mg/dL Urine Blood (Negative) Urine Nitrite (Negative) Ur Leukocyte Esterase (Negative) Urine RBC (0-2) /HPF Urine WBC (0-5) /HPF Ur Squamous Epith Cells (0-2) /HPF Urine Bacteria (None Seen) Hyaline Casts (0-2) /LPF COVID-19 (DEVEN) (Negative) COVID-19 Clin Com 07/08/22 07/08/22 07/08/22 Range/Units 18:17 18:17 18:17 WBC (4.8-10.8) X10*3/uL RBC (4.20-5.50) X10*6/uL Hgb (12.0-16.0) g/dl Hct (37.0-47.0) % MCV (80.0-98.0) fL MCH (27.0-33.0) pg MCHC (31.0-35.0) g/dl RDW (11.0-16.0) % Plt Count (160-400) X10*3/uL MPV (9.4-12.3) fL Immature Gran % (Auto) (0.0-0.4) % Neut % (Auto) (45-73) % Lymph % (Auto) (20-40) % [facility] % (Auto) (2-11) % Eos % (Auto) (0-4) % Baso % (Auto) (0-2) % Lymph # (Auto) (1.2-4.9) X10*3/uL [facility] [place] # (Auto) (0.1-1.2) X10*3/uL Eos # (Auto) (0.0-0.4) X10*3/uL Baso # (Auto) (0.0-0.2) X10*3/uL Abs Immat Gran (auto) (0.00-0.03) X10*3/uL Absolute Neuts (auto) (2.0-8.3) x10*3/uL Absolute Nucleated RBC (0.0-0.012) X10*3/uL Nucleated RBC % (auto) (0.0-0.2) /100WBC PT 11.1 (10.0-13.1) SEC INR 1.0 (0.9-1.1) D-Dimer High Sensitivty 253 NG/ML Sodium (135-145) mmol/L Potassium (3.3-5.1) mmol/L Chloride (96-108) mmol/L Carbon Dioxide (22-29) mmol/L Anion Gap (12-20) BUN (9-16) mg/dL Creatinine (0.5-1.4) mg/dL Estim Creat Clear Calc Estimated GFR Random Glucose (60-115) mg/dL Calcium (8.4-10.2) mg/dL Magnesium (1.6-2.6) mg/dL Total Bilirubin (0.0-1.0) mg/dL Direct Bilirubin (0.0-0.5) mg/dL AST (5-31) U/L ALT (0-31) U/L Alkaline Phosphatase (39-117) U/L Troponin I High Sens (<3.5-17.0) ng/L B-Natriuretic Peptide 45 (<100) pg/mL Total Protein (6.5-8.0) g/dL Albumin (3.5-5.0) g/dL Lipase (8-78) U/L Urine Color Urine Appearance Urine pH (5.0-9.0) Ur Specific [place] (1.005-1.025) Urine Protein (Neg-Trace) mg/dL Urine Glucose (UA) (Negative) mg/dL Urine Ketones (Negative) mg/dL Urine Blood (Negative) Urine Nitrite (Negative) Ur Leukocyte Esterase (Negative) Urine RBC (0-2) /HPF Urine WBC (0-5) /HPF Ur Squamous Epith Cells (0-2) /HPF Urine Bacteria (None Seen) Hyaline Casts (0-2) /LPF COVID-19 (DEVEN) (Negative) COVID-19 Clin Com 07/08/22 07/08/22 Range/Units 18:25 18:27 WBC (4.8-10.8) X10*3/uL RBC (4.20-5.50) X10*6/uL Hgb (12.0-16.0) g/dl Hct (37.0-47.0) % MCV (80.0-98.0) fL MCH (27.0-33.0) pg MCHC (31.0-35.0) g/dl RDW (11.0-16.0) % Plt Count (160-400) X10*3/uL MPV (9.4-12.3) fL Immature Gran % (Auto) (0.0-0.4) % Neut % (Auto) (45-73) % Lymph % (Auto) (20-40) % [facility] [place] % (Auto) (2-11) % Eos % (Auto) (0-4) % Baso % (Auto) (0-2) % Lymph # (Auto) (1.2-4.9) X10*3/uL [facility] [place] [facility] # (Auto) (0.1-1.2) X10*3/uL Eos # (Auto) (0.0-0.4) X10*3/uL Baso # (Auto) (0.0-0.2) X10*3/uL Abs Immat Gran (auto) (0.00-0.03) X10*3/uL Absolute Neuts (auto) (2.0-8.3) x10*3/uL Absolute Nucleated RBC (0.0-0.012) X10*3/uL Nucleated RBC % (auto) (0.0-0.2) /100WBC PT (10.0-13.1) SEC INR (0.9-1.1) D-Dimer High Sensitivty NG/ML Sodium (135-145) mmol/L Potassium (3.3-5.1) mmol/L Chloride (96-108) mmol/L Carbon Dioxide (22-29) mmol/L Anion Gap (12-20) BUN (9-16) mg/dL Creatinine (0.5-1.4) mg/dL Estim Creat Clear Calc Estimated GFR Random Glucose (60-115) mg/dL Calcium (8.4-10.2) mg/dL Magnesium (1.6-2.6) mg/dL Total Bilirubin (0.0-1.0) mg/dL Direct Bilirubin (0.0-0.5) mg/dL AST (5-31) U/L ALT (0-31) U/L Alkaline Phosphatase (39-117) U/L Troponin I High Sens (<3.5-17.0) ng/L B-Natriuretic Peptide (<100) pg/mL Total Protein (6.5-8.0) g/dL Albumin (3.5-5.0) g/dL Lipase (8-78) U/L Urine Color Yellow Urine Appearance Clear Urine pH 7.5 (5.0-9.0) Ur Specific [place] 1.015 (1.005-1.025) Urine Protein Trace (Neg-Trace) mg/dL Urine Glucose (UA) 250 H (Negative) mg/dL Urine Ketones Negative (Negative) mg/dL Urine Blood Negative (Negative) Urine Nitrite Negative (Negative) Ur Leukocyte Esterase Moderate (2+) H (Negative) Urine RBC 0-2 (0-2) /HPF Urine WBC 11-20 H (0-5) /HPF Ur Squamous Epith Cells 0-2 (0-2) /HPF Urine Bacteria None Seen (None Seen) Hyaline Casts 0-2 (0-2) /LPF COVID-19 (DEVEN) Negative (Negative) COVID-19 Clin Com See Note <YENNIFER Maddox - Last Filed: 07/08/22 17:58> Lab Results 07/08/22 07/08/22 07/08/22 Range/Units 18:17 18:17 18:17 WBC 11.8 H (4.8-10.8) X10*3/uL RBC 4.36 (4.20-5.50) X10*6/uL Hgb 12.0 (12.0-16.0) g/dl Hct 36.3 L (37.0-47.0) % MCV 83.3 (80.0-98.0) fL MCH 27.5 (27.0-33.0) pg MCHC 33.1 (31.0-35.0) g/dl RDW 13.0 (11.0-16.0) % Plt Count 503 H (160-400) X10*3/uL MPV 9.0 L (9.4-12.3) fL Immature Gran % (Auto) 0.8 H (0.0-0.4) % Neut % (Auto) 61.1 (45-73) % Lymph % (Auto) 29.0 (20-40) % [facility] [place] % (Auto) 6.9 (2-11) % Eos % (Auto) 1.8 (0-4) % Baso % (Auto) 0.4 (0-2) % Lymph # (Auto) 3.4 (1.2-4.9) X10*3/uL [facility] [place] [facility] # (Auto) 0.8 (0.1-1.2) X10*3/uL Eos # (Auto) 0.2 (0.0-0.4) X10*3/uL Baso # (Auto) 0.1 (0.0-0.2) X10*3/uL Abs Immat Gran (auto) 0.10 H (0.00-0.03) X10*3/uL Absolute Neuts (auto) 7.2 (2.0-8.3) x10*3/uL Absolute Nucleated RBC 0.000 (0.0-0.012) X10*3/uL Nucleated RBC % (auto) 0.0 (0.0-0.2) /100WBC PT (10.0-13.1) SEC INR (0.9-1.1) D-Dimer High Sensitivty NG/ML Sodium 140 (135-145) mmol/L Potassium 3.8 (3.3-5.1) mmol/L Chloride 101 (96-108) mmol/L Carbon Dioxide 26 (22-29) mmol/L Anion Gap 17 (12-20) BUN 14 (9-16) mg/dL Creatinine 0.94 (0.5-1.4) mg/dL Estim Creat Clear Calc 55.2 Estimated GFR > 60 Random Glucose 229 H (60-115) mg/dL Calcium 9.4 (8.4-10.2) mg/dL Magnesium 2.1 (1.6-2.6) mg/dL Total Bilirubin 0.3 (0.0-1.0) mg/dL Direct Bilirubin < 0.2 (0.0-0.5) mg/dL AST 18 (5-31) U/L ALT 23 (0-31) U/L Alkaline Phosphatase 134 H (39-117) U/L Troponin I High Sens < 3.5 (<3.5-17.0) ng/L B-Natriuretic Peptide (<100) pg/mL Total Protein 7.5 (6.5-8.0) g/dL Albumin 4.1 (3.5-5.0) g/dL Lipase 48 (8-78) U/L Urine Color Urine Appearance Urine pH (5.0-9.0) Ur Specific [place] (1.005-1.025) Urine Protein (Neg-Trace) mg/dL Urine Glucose (UA) (Negative) mg/dL Urine Ketones (Negative) mg/dL Urine Blood (Negative) Urine Nitrite (Negative) Ur Leukocyte Esterase (Negative) Urine RBC (0-2) /HPF Urine WBC (0-5) /HPF Ur Squamous Epith Cells (0-2) /HPF Urine Bacteria (None Seen) Hyaline Casts (0-2) /LPF COVID-19 (DEVEN) (Negative) COVID-19 Clin Com 07/08/22 07/08/22 07/08/22 Range/Units 18:17 18:17 18:17 WBC (4.8-10.8) X10*3/uL RBC (4.20-5.50) X10*6/uL Hgb (12.0-16.0) g/dl Hct (37.0-47.0) % MCV (80.0-98.0) fL MCH (27.0-33.0) pg MCHC (31.0-35.0) g/dl RDW (11.0-16.0) % Plt Count (160-400) X10*3/uL MPV (9.4-12.3) fL Immature Gran % (Auto) (0.0-0.4) % Neut % (Auto) (45-73) % Lymph % (Auto) (20-40) % [facility] [place] [facility] % (Auto) (2-11) % Eos % (Auto) (0-4) % Baso % (Auto) (0-2) % Lymph # (Auto) (1.2-4.9) X10*3/uL [facility] [place] [facility] # (Auto) (0.1-1.2) X10*3/uL Eos # (Auto) (0.0-0.4) X10*3/uL Baso # (Auto) (0.0-0.2) X10*3/uL Abs Immat Gran (auto) (0.00-0.03) X10*3/uL Absolute Neuts (auto) (2.0-8.3) x10*3/uL Absolute Nucleated RBC (0.0-0.012) X10*3/uL Nucleated RBC % (auto) (0.0-0.2) /100WBC PT 11.1 (10.0-13.1) SEC INR 1.0 (0.9-1.1) D-Dimer High Sensitivty 253 NG/ML Sodium (135-145) mmol/L Potassium (3.3-5.1) mmol/L Chloride (96-108) mmol/L Carbon Dioxide (22-29) mmol/L Anion Gap (12-20) BUN (9-16) mg/dL Creatinine (0.5-1.4) mg/dL Estim Creat Clear Calc Estimated GFR Random Glucose (60-115) mg/dL Calcium (8.4-10.2) mg/dL Magnesium (1.6-2.6) mg/dL Total Bilirubin (0.0-1.0) mg/dL Direct Bilirubin (0.0-0.5) mg/dL AST (5-31) U/L ALT (0-31) U/L Alkaline Phosphatase (39-117) U/L Troponin I High Sens (<3.5-17.0) ng/L B-Natriuretic Peptide 45 (<100) pg/mL Total Protein (6.5-8.0) g/dL Albumin (3.5-5.0) g/dL Lipase (8-78) U/L Urine Color Urine Appearance Urine pH (5.0-9.0) Ur Specific [place] (1.005-1.025) Urine Protein (Neg-Trace) mg/dL Urine Glucose (UA) (Negative) mg/dL Urine Ketones (Negative) mg/dL Urine Blood (Negative) Urine Nitrite (Negative) Ur Leukocyte Esterase (Negative) Urine RBC (0-2) /HPF Urine WBC (0-5) /HPF Ur Squamous Epith Cells (0-2) /HPF Urine Bacteria (None Seen) Hyaline Casts (0-2) /LPF COVID-19 (DEVEN) (Negative) COVID-19 Clin Com 07/08/22 07/08/22 Range/Units 18:25 18:27 WBC (4.8-10.8) X10*3/uL RBC (4.20-5.50) X10*6/uL Hgb (12.0-16.0) g/dl Hct (37.0-47.0) % MCV (80.0-98.0) fL MCH (27.0-33.0) pg MCHC (31.0-35.0) g/dl RDW (11.0-16.0) % Plt Count (160-400) X10*3/uL MPV (9.4-12.3) fL Immature Gran % (Auto) (0.0-0.4) % Neut % (Auto) (45-73) % Lymph % (Auto) (20-40) % [facility] [place] % (Auto) (2-11) % Eos % (Auto) (0-4) % Baso % (Auto) (0-2) % Lymph # (Auto) (1.2-4.9) X10*3/uL [facility] [place] # (Auto) (0.1-1.2) X10*3/uL Eos # (Auto) (0.0-0.4) X10*3/uL Baso # (Auto) (0.0-0.2) X10*3/uL Abs Immat Gran (auto) (0.00-0.03) X10*3/uL Absolute Neuts (auto) (2.0-8.3) x10*3/uL Absolute Nucleated RBC (0.0-0.012) X10*3/uL Nucleated RBC % (auto) (0.0-0.2) /100WBC PT (10.0-13.1) SEC INR (0.9-1.1) D-Dimer High Sensitivty NG/ML Sodium (135-145) mmol/L Potassium (3.3-5.1) mmol/L Chloride (96-108) mmol/L Carbon Dioxide (22-29) mmol/L Anion Gap (12-20) BUN (9-16) mg/dL Creatinine (0.5-1.4) mg/dL Estim Creat Clear Calc Estimated GFR Random Glucose (60-115) mg/dL Calcium (8.4-10.2) mg/dL Magnesium (1.6-2.6) mg/dL Total Bilirubin (0.0-1.0) mg/dL Direct Bilirubin (0.0-0.5) mg/dL AST (5-31) U/L ALT (0-31) U/L Alkaline Phosphatase (39-117) U/L Troponin I High Sens (<3.5-17.0) ng/L B-Natriuretic Peptide (<100) pg/mL Total Protein (6.5-8.0) g/dL Albumin (3.5-5.0) g/dL Lipase (8-78) U/L Urine Color Yellow Urine Appearance Clear Urine pH 7.5 (5.0-9.0) Ur Specific [place] 1.015 (1.005-1.025) Urine Protein Trace (Neg-Trace) mg/dL Urine Glucose (UA) 250 H (Negative) mg/dL Urine Ketones Negative (Negative) mg/dL Urine Blood Negative (Negative) Urine Nitrite Negative (Negative) Ur Leukocyte Esterase Moderate (2+) H (Negative) Urine RBC 0-2 (0-2) /HPF Urine WBC 11-20 H (0-5) /HPF Ur Squamous Epith Cells 0-2 (0-2) /HPF Urine Bacteria None Seen (None Seen) Hyaline Casts 0-2 (0-2) /LPF COVID-19 (DEVEN) Negative (Negative) COVID-19 Clin Com See Note <Jyothi Bhatia MD - Last Filed: 07/08/22 19:22> Independent Interpretation I performed an independent interpretation of an: Plain X-Ray (My interpretation of chest x-ray: Unremarkable, no pneumonia) <Jyothi Bhatia MD - Last Filed: 07/08/22 19:22> Radiology Impression Discussion of test interpretation with radiology: I have reviewed the radiologist's reading. <Jyothi Bhatia MD - Last Filed: 07/08/22 19:22> Radiologist Impression: FINDINGS: No significant abnormality is noted involving the heart, lungs, mediastinum, bony thorax or soft tissues. XR/XR chest 1V IMPRESSION: Unremarkable examination. <Jyothi Bhatia MD - Last Filed: 07/08/22 19:22> Discharge Plan Discharge Clinical Impression: Bronchitis, UTI (urinary tract infection) <YENNIFER Maddox - Last Filed: 07/08/22 17:58> Patient Disposition: Home, Self-Care <YENNIFER Maddox - Last Filed: 07/08/22 17:58> Instructions: Urinary Tract Infection in Women (ED), Acute Bronchitis (ED) <YENNIFER Maddox - Last Filed: 07/08/22 17:58> Additional Instructions: Please follow-up with your primary care physician tomorrow. If you have any worsening or new symptoms, please return to the emergency room or call 911 <YENNIFER Maddox - Last Filed: 07/08/22 17:58> Prescriptions: New cefuroxime axetil 500 mg tablet 500 mg PO BID Qty: 14 0RF benzonatate 100 mg capsule 100 mg PO TID PRN (Reason: cough) Qty: 14 0RF No Action (DME) lancets [OneTouch UltraSoft Lancets] Misc See Rx Instructions .Route Qty: 200 0RF Rx Instructions: test 3x day diclofenac sodium [Arthritis Pain (diclofenac)] 1 % gel 2 g topical QID 14 Days Qty: 100 0RF Rx Instructions: apply to single elbow, wrist or hand; for hand includes palm/fingers/back of hand insulin glargine [Lantus Solostar U-100 Insulin] 100 unit/mL (3 mL) insulin pen 14 unit subcut BEDTIME Qty: 3 0RF cholecalciferol (vitamin D3) 50 mcg (2,000 unit) tablet 50 mcg PO DAILY Qty: 90 3RF (DME) pen needle, diabetic [Pen Needle] 31 gauge x 1/4 needle See Rx Instructions .Route Qty: 100 3RF Rx Instructions: As directed daily (DME) OneTouch Ultra Test Strip See Rx Instructions .Route Qty: 100 12RF Rx Instructions: As directed - to test blood sugar TID losartan 100 mg tablet 100 mg PO BEDTIME 30 Days Qty: 30 3RF nifedipine 30 mg tablet extended release 24hr 30 mg PO DAILY 30 Days Qty: 30 3RF Protocol: Hold for SBP< HOLD for SBP < : 90 Trulicity 1.5 mg/0.5 mL pen injector 1.5 mg subcut QWEEK Qty: 2 3RF gabapentin 400 mg capsule 400 mg PO BID Qty: 90 1RF atorvastatin 80 mg tablet 80 mg PO BEDTIME Qty: 30 3RF aspirin 81 mg tablet,chewable 81 mg PO DAILY Qty: 30 3RF clopidogrel [Plavix] 75 mg tablet 75 mg PO DAILY 30 Days Qty: 30 3RF glimepiride 4 mg tablet 4 mg PO QAM Qty: 30 1RF fluticasone propionate [Flonase Allergy Relief] 50 mcg/actuation spray,suspension 1 spray intranasal DAILY PRN (Reason: Allergy Symptoms) Rx Instructions: administer into each nostril fluoxetine 20 mg capsule 20 mg PO DAILY zolpidem 10 mg tablet 10 mg PO BEDTIME lorazepam 0.5 mg tablet 0.5 mg PO DAILY PRN (Reason: Anxiety) (DME) BLOOD PRESSURE MONITOR See Rx Instructions .Route .MEDSUPPLY Qty: 1 0RF Rx Instructions: As directed (DME) blood sugar diagnostic Strip See Rx Instructions .Route Qty: 100 12RF Rx Instructions: As directed- 3 times daily (DME) blood-glucose meter [OneTouch Ultra2 Meter] Kit See Rx Instructions .Route Qty: 1 0RF Rx Instructions: As directed- To test blood sugar TID (DME) lancets [OneTouch UltraSoft Lancets] Misc See Rx Instructions .Route Qty: 200 12RF Rx Instructions: As directed- To test blood sugar TID pioglitazone [Actos] 15 mg tablet 15 mg PO DAILY Qty: 30 4RF <YENNIFER Maddox - Last Filed: 07/08/22 17:58>
[2022-07-08 17:50] VITALS: BP 201/86; PULSE 102; RESP 18; TEMP 36.3; O2SAT 99; BMI 32.3
[2022-07-08 17:54] VITALS: BP 194/85
--- NOTE | 2022-07-08 17:54 | PC.NURSE ---
Pressures taken on bilateral arms hypertensive on both with little disparity between the two
[2022-07-08 18:01] VITALS: BP 196/87; PULSE 101; RESP 16; TEMP 36.8; O2SAT 100
[2022-07-08 18:25] LABS: MANUAL DIFF FLAG NO
[2022-07-08 18:31] VITALS: BP 152/73; PULSE 89; RESP 16; TEMP 37.1; O2SAT 98
[2022-07-08 18:33] LABS: Prothrombin Time 11.1 SEC (10.0-13.1)
[2022-07-08 18:35] LABS: D Dimer High Sensitivity 253 NG/ML
[2022-07-08 18:37] LABS: Appearance Urine Clear; Color Urine Yellow; Glucose Urine UA 250 mg/dL (Negative); Leukocyte Esterase Urine Moderate (2+) (Negative); Nitrite Urine Negative (Negative); PH 7.5 (5.0-9.0); Specific Gravity - Urine 1.015 (1.005-1.025); UMIC TRIGGER UACC YES; Urine Blood Negative (Negative); Urine Ketones Negative (Negative); Urine Protein Trace mg/dL (Neg-Trace)
--- NOTE | 2022-07-08 18:37 | MHC.EDTECH ---
pt ekg done and vitals sign taken .
[2022-07-08 18:39] LABS: Bacteria Urine None Seen (None Seen); Hyaline Casts Urine 0-2 /LPF (0-2); RBC Urine 0-2 /HPF (0-2); Squamous Epithelial Cell Urine 0-2 /HPF (0-2); UACC Culture Trigger YES
[2022-07-08 18:44] LABS: Alanine Aminotransferase 23 U/L (0-31); Albumin Level 4.1 g/dL (3.5-5.0); Alkaline Phosphatase 134 U/L (39-117); Anion Gap 17 (12-20); Aspartate Amino Transferase 18 U/L (5-31); Bilirubin Direct < 0.2 mg/dL (0.0-0.5); Bilirubin Total 0.3 mg/dL (0.0-1.0); Blood Urea Nitrogen 14 mg/dL (9-16); Calcium 9.4 mg/dL (8.4-10.2); Carbon Dioxide 26 mmol/L (22-29); Chloride 101 mmol/L (96-108); Creatinine Clr Calc Pharmacy 55.2; Estimated Glomerular Filt Rate > 60; Glucose Random 229 mg/dL (60-115); Lipase 48 U/L (8-78); Magnesium 2.1 mg/dL (1.6-2.6); Potassium 3.8 mmol/L (3.3-5.1); Sodium 140 mmol/L (135-145); Total Protein 7.5 g/dL (6.5-8.0)
[2022-07-08 18:45] LABS: Basophils Absolute Auto 0.1 X10*3/uL (0.0-0.2); Basophils Percent Auto 0.4 % (0-2); Eosinophils Absolute Auto 0.2 X10*3/uL (0.0-0.4); Eosinophils Percent Auto 1.8 % (0-4); Hematocrit 36.3 % (37.0-47.0); Imm Gran Pct Auto 0.8 % (0.0-0.4); Lymphocytes Absolute Auto 3.4 X10*3/uL (1.2-4.9); Mean Corpuscular HGB Conc 33.1 g/dl (31.0-35.0); Mean Corpuscular Hemoglobin 27.5 pg (27.0-33.0); Mean Corpuscular Volume 83.3 fL (80.0-98.0); Monocytes Absolute Auto 0.8 X10*3/uL (0.1-1.2); Monocytes Percent Auto 6.9 % (2-11); Neutrophils Absolute Auto 7.2 x10*3/uL (2.0-8.3); Neutrophils Percent Auto 61.1 % (45-73); Platelet Count 503 X10*3/uL (160-400); Red Blood Count 4.36 X10*6/uL (4.20-5.50); White Blood Count 11.8 X10*3/uL (4.8-10.8)
[2022-07-08 18:49] LABS: B Type Natriuretic Peptide 45 pg/mL (<100)
[2022-07-08 18:53] LABS: Troponin-I High Sensitivity < 3.5 ng/L (<3.5-17.0)
[2022-07-08 18:58] LABS: COVID-19 Test Negative (Negative); IDNOW Serial# 08D9AD1C
[2022-07-08] MEDS: Morphine Sulfate 2 MG/ML CARTRIDGE IVPUSH (19:47)
--- NOTE | 2022-07-08 20:00 | PC.NURSE ---
Assumed care of pt. at 1900. Pt. resting in bed at this time. pt. medicated for pain 01/23 and given first dose abx. Pt. is pending a ride home.
== END 2022-07-08 20:22 | disposition home or self-care (01) ==
PROVIDERS: Physician Assistant; Emergency Provider Emergency Medicine; PCP Internal Medicine
DX: J40 Bronchitis, not specified as acute or chronic (principal); N39.0 Urinary tract infection, site not specified; Z20.822 Contact with and (suspected) exposure to COVID-19; I10 Essential (primary) hypertension; E11.9 Type 2 diabetes mellitus without complications; E78.5 Hyperlipidemia, unspecified; Z79.02 Long term (current) use of antithrombotics/antiplatelets; Z79.82 Long term (current) use of aspirin; Z79.899 Other long term (current) drug therapy; Z79.4 Long term (current) use of insulin
CPT/HCPCS: 36415; 71045; 80048; 80076; 81001; 83690; 83735; 83880; 84484; 85025; 85379; 85610; 87086; 87635; 93005; 96374; 99284; J2270

== ENCOUNTER 2022-10-01 19:08 | Emergency (ER) | payer OTHER, SELFPAY ==
[2022-10-01 19:12] VITALS: BP 213/99; PULSE 98; RESP 16; TEMP 36.3; O2SAT 98; BMI 34.3
--- NOTE | 2022-10-01 19:15 | ECG_ITS ---
Test Reason : CHEST PAIN Blood Pressure : / mmHG Vent. Rate : 097 BPM Atrial Rate : 097 BPM P-R Int : 144 ms QRS Dur : 078 ms QT Int : 364 ms P-R-T Axes : 040 -02 001 degrees QTc Int : 462 ms Normal sinus rhythm Minimal voltage criteria for LVH, may be normal variant ( R in aVL ) Borderline ECG When compared with ECG of 08-JUL-2022 18:27, No significant change was found Referred By: Generic ED Physician Electronically Signed By:LASHON ANDERSON
[2022-10-01 19:37] LABS: Glucose, Whole Blood 419 mg/dL (60-115)
[2022-10-01 19:45] VITALS: BP 223/108; PULSE 93; RESP 11; TEMP 37; O2SAT 97
[2022-10-01 19:47] LABS: MANUAL DIFF FLAG NO
[2022-10-01 19:49] LABS: Basophils Percent Auto 0.4 % (0-2); Eosinophils Absolute Auto 0.2 X10*3/uL (0.0-0.4); Eosinophils Percent Auto 2.1 % (0-4); Hematocrit 37.3 % (37.0-47.0); Hemoglobin 12.2 g/dl (12.0-16.0); Imm Gran Abs Auto 0.03 X10*3/uL (0.00-0.03); Imm Gran Pct Auto 0.3 % (0.0-0.4); Lymphocytes Absolute Auto 2.7 X10*3/uL (1.2-4.9); Lymphocytes Percent Auto 25.2 % (20-40); Mean Corpuscular HGB Conc 32.7 g/dl (31.0-35.0); Mean Corpuscular Hemoglobin 27.1 pg (27.0-33.0); Mean Corpuscular Volume 82.9 fL (80.0-98.0); Mean Platelet Volume 9.2 fL (9.4-12.3); Monocytes Absolute Auto 0.7 X10*3/uL (0.1-1.2); Monocytes Percent Auto 6.7 % (2-11); Neutrophils Absolute Auto 7.1 x10*3/uL (2.0-8.3); Neutrophils Percent Auto 65.3 % (45-73); Platelet Count 456 X10*3/uL (160-400); Red Cell Distribution Width 12.2 % (11.0-16.0); White Blood Count 10.8 X10*3/uL (4.8-10.8)
[2022-10-01 20:00] VITALS: BP 174/79; PULSE 86; RESP 16; TEMP 36.2; O2SAT 98
[2022-10-01] MEDS: Insulin Regular, Human 100 UNIT/ML 3 ML VIAL 10 UNIT IVPUSH (20:00)
[2022-10-01] MEDS: Labetalol HCL 100 MG TABLET PO (20:03)
[2022-10-01] MEDS: 0.9 % Sodium Chloride 1,000 ML 999 ML IVCONT (20:03)
[2022-10-01 20:04] LABS: Beta-Hydroxybutyrate 0.07 mmol/L (0.02-0.027)
--- NOTE | 2022-10-01 20:08 | ED_ITS ---
HPI - General Adult General Chief complaint: Recheck/Abnormal Lab/Rx Stated complaint: high blood sugar Time Seen by Provider: 10/01/22 19:41 Source: patient Mode of arrival: ambulatory Limitations: no limitations History of Present Illness HPI narrative: Patient comes to the emergency room complaining of high blood sugar. Patient states at home it was greater than 500. Also, patient states that she has been having a bit of chest pressure with no chest pain, states she takes her blood pressure medications and her diabetic medications as prescribed. Related Data Home Medications Medication Instructions Recorded Confirmed fluoxetine 20 mg capsule 20 mg PO DAILY 11/12/20 07/24/22 lorazepam 0.5 mg tablet 0.5 mg PO DAILY PRN Anxiety 11/12/20 07/24/22 zolpidem 10 mg tablet 10 mg PO BEDTIME 11/12/20 07/24/22 Previous Rx's Medication Instructions Recorded BLOOD PRESSURE MONITOR #1 ea 11/26/20 diclofenac sodium 1 % topical gel 2 g topical QID 14 days #100 grams 07/26/21 (Arthritis Pain (diclofenac)) blood-glucose meter (Skills Matteruch #1 ea 10/19/21 Ultra2 Meter kit) insulin glargine 100 unit/mL (3 14 unit (0.14 mL) subcut BEDTIME 11/29/21 mL) subcutaneous pen (Lantus #3 mL Solostar U-100 Insulin) pioglitazone 15 mg tablet (Actos) 15 mg PO DAILY #30 tabs 11/29/21 cholecalciferol (vitamin D3) 50 50 mcg PO DAILY #90 tabs 01/25/22 mcg (2,000 unit) tablet blood sugar diagnostic (BrainlyTouch #100 ea 01/31/22 Ultra Test strips) pen needle, diabetic 31 gauge x #100 ea 01/31/22 1/ (Pen Needle) aspirin 81 mg chewable tablet 81 mg PO DAILY #30 tabs 05/29/22 gabapentin 400 mg capsule 400 mg PO BID #90 caps 05/29/22 lancets (BrainlyTouch UltraSoft #200 ea 06/19/22 Lancets) cyclobenzaprine 10 mg tablet 10 mg PO BEDTIME 7 days #7 tabs 07/24/22 losartan 100 mg tablet 100 mg PO BEDTIME 30 days #30 tabs 08/23/22 nifedipine 30 mg tablet,extended 30 mg PO DAILY 30 days #30 tabs 08/23/22 release 24 hr atorvastatin 80 mg tablet 80 mg PO BEDTIME #30 tabs 09/20/22 clopidogrel 75 mg tablet (Plavix) 75 mg PO DAILY 30 days #30 tabs 09/20/22 dulaglutide 1.5 mg/0.5 mL 1.5 mg (0.5 mL) subcut QWEEK #2 mL 09/20/22 subcutaneous pen injector (Trulicity) glimepiride 4 mg tablet 4 mg PO QAM #30 tabs 09/20/22 nifedipine 60 mg tablet,extended 60 mg PO DAILY #30 tabs 10/01/22 release Allergies Allergy/AdvReac Type Severity Reaction Status Date / Time ibuprofen [From Motrin] Allergy Mild STOMACH Verified 10/01/22 19:12 UPSET oxycodone [From Percocet] Allergy Mild ITCHING Verified 10/01/22 19:12 lactose [LACTOSE] Allergy Unknown ABD PAIN Verified 10/01/22 19:12 metformin AdvReac Unknown nausea, Verified 10/01/22 19:12 somnolence amlodipine AdvReac Swelling Verified 10/01/22 19:12 Review of Systems Review of Systems: Constitutional : No Weight loss, No Fever, No Chills, No Night Sweats, No Fatigue, No Malaise ENT/Mouth : No Hearing loss, No Ear Pain, No Nasal Congestion, No Sinus Pain, No Hoarseness, No sore throat, No Rhinorrhea, No Swallowing Difficulty Eyes: No Eye Pain, No Swelling, No Redness, No Foreign Body, No Discharge, No Vision Changes Cardiovascular : Complaining of chest pressure, No Chest Pain, No SOB, No Dyspnea on Exertion, No Orthopnea, No Edema, No Palpitations Respiratory : No Cough, No Sputum, No Wheezing, No Smoke Exposure, No Dyspnea Gastrointestinal : No Nausea, No Vomiting, No Diarrhea, No Constipation, No abdominal Pain, No Hematochezia, No Melena Genitourinary : no irregular bleeding, No Dysuria, No Urinary Frequency, No Hematuria, No Urinary Incontinence, No Urgency, No Flank Pain, No Urinary Flow Changes, No Hesitancy Musculoskeletal : No joint pain, No Myalgias, No Joint Swelling Skin : No Skin Lesions, No rash Neuro : No Weakness, No Numbness, No Paresthesias, No Loss of Consciousness, No Dizziness, No Headache Psych : No Anxiety/Panic, No Depression, No SI/HI/AH/VH, No Social Issues, Heme/Lymph: No Bruising, No Bleeding,No Lymphadenopathy Endocrine : No Polyuria, No Polydipsia, No Temperature Intolerance, complaining of high blood close at home PMFSH Past Medical History Medical History Anemia, iron deficiency Anxiety Benign essential hypertension CVA (cerebral vascular accident) Depression Diabetes Diabetes mellitus Fibromyalgia GERD without esophagitis HTN (hypertension) Insomnia Intracranial vascular stenosis Lumbar degenerative disc disease Obesity (BMI 30-39.9) Pure hypercholesterolemia Right thalamic stroke Sciatic pain Uncontrolled type 2 diabetes mellitus with hyperglycemia, with long-term current use of insulin Surgical History H/O bilateral breast reduction surgery History of appendectomy History of carpal tunnel release History of section History of hysterectomy History of left salpingo-oophorectomy History of surgery Family History Family History Father Suicide Epilepsy Mother Poor high blood pressure control Diabetes Hypertension Daughter Spina bifida Brother Stroke Other Mental health problem Social History Social History Household Members: Significant Other Housing: Apartment Do you presently have visiting nurse or other home services: No Alcohol intake: never Patient Tobacco Use Status: Never used Tobacco Smoked in Last 30 Days: No e-Cigarette/Vaping Use: Never Used Second Hand Smoke Exposure: Yes Use of substances other than those prescribed or required for medical reasons: No Advance Directives: No Advance Directives Information Provided: No Patient : No service: No Current occupational status: disabled Cognitive needs: Yes (cane) Hearing needs: No Vision needs: Yes (glasses) Physical Exam ED Vital Signs: Vital Signs - 24 hr 10/01/22 19:12 10/01/22 19:45 10/01/22 20:00 Temperature 97.3 F 98.6 F 97.2 F Pulse Rate 98 93 86 Respiratory Rate 16 11 L 16 Blood Pressure 213/99 H 223/108 H 174/79 H Pulse Oximetry 98 97 98 Oxygen Delivery Method Room Air Room Air Room Air 10/01/22 21:22 10/01/22 22:00 Temperature 98.2 F 98.6 F Pulse Rate 84 89 Respiratory Rate 18 16 Blood Pressure 155/77 H 159/84 H Pulse Oximetry 96 98 Oxygen Delivery Method Room Air Room Air BMI result Body Mass Index 34.3 Const Other: Appearance: Alert. Oriented X3. No acute distress. Eyes: Pupils equal, round and reactive to light. ENT: Pharynx normal. Neck: Normal inspection. Neck supple. No lymph nodes noted. No crepitus CVS: Normal heart rate and rhythm. Pulses normal. Normal S1 and S2 Respiratory: No respiratory distress. Breath sounds normal. No Wheezing. No rales Abdomen: Soft and nontender. No rigidity. No distention. Skin: Skin warm and dry. Normal skin color. Normal skin turgor. Extremities: No lower extremity edema. No Lacerations. No Rash Neuro: Oriented X 3. No motor deficit. No sensory deficit. Moving all extremities. No slurred speech. CN 2 through 12 grossly intact Psych: calm, cooperative, normal affect Course Course Course Narrative: -patient receiving IV fluids, insulin 10 units -patient still hypertensive, blood pressure 223/108, patient will be getting 100 mg of labetalol p.o. Medications Administered Discontinued Medications Generic Name Dose Route Start Last Admin Trade Name Freq PRN Reason Stop Dose Admin Sodium Chloride 1,000 mls @ 999 mls/hr 10/01/22 19:54 10/01/22 20:43 Ns IVCONT 10/01/22 20:54 Infused .Q1H1M ONE Infusion Insulin Human Regular 10 unit 10/01/22 19:54 10/01/22 20:00 Insulin Regular, Human 100 Unit/Ml 3 Ml Vial IVPUSH 10/01/22 19:55 10 unit ONCE ONE Administration Labetalol HCl 100 mg 10/01/22 19:54 10/01/22 20:03 Labetalol Hcl 100 Mg Tablet PO 10/01/22 19:55 100 mg ONCE ONE Administration Protocol Medical Decision Making Medical Decision Making MDM Narrative: -EKG my interpretation: Normal sinus rhythm, rate 97, no ST segment depression or elevation, no T-wave inversion, QTC 462 -patient's blood glucose 156. Patient will follow-up with the primary care physician tomorrow, they may have to adjust the Lantus or the Trulicity, patient is also on oral hypoglycemics, patient will call her primary care physician and ask for advice regarding a glucose control with medications. -patient's blood pressure improved to 159/84. Patient takes maximum dose of losartan and 30 mg of nifedipine extended release. Patient's blood pressure still elevated, discussed with the patient to increase nifedipine to 60 mg. Also, patient will follow-up with her primary care physician tomorrow. -At this time, patient is asymptomatic Lab Data MDM Lab Attestation statement: I reviewed the patient's lab results. 10/01/22 19:43 10/01/22 19:43 Labs: Lab Results 10/01/22 10/01/22 10/01/22 Range/Units 19:32 19:43 19:43 WBC 10.8 (4.8-10.8) X10*3/uL RBC 4.50 (4.20-5.50) X10*6/uL Hgb 12.2 (12.0-16.0) g/dl Hct 37.3 (37.0-47.0) % MCV 82.9 (80.0-98.0) fL MCH 27.1 (27.0-33.0) pg MCHC 32.7 (31.0-35.0) g/dl RDW 12.2 (11.0-16.0) % Plt Count 456 H (160-400) X10*3/uL MPV 9.2 L (9.4-12.3) fL Immature Gran % (Auto) 0.3 (0.0-0.4) % Neut % (Auto) 65.3 (45-73) % Lymph % (Auto) 25.2 (20-40) % [place] % (Auto) 6.7 (2-11) % Eos % (Auto) 2.1 (0-4) % Baso % (Auto) 0.4 (0-2) % Lymph # (Auto) 2.7 (1.2-4.9) X10*3/uL [place] # (Auto) 0.7 (0.1-1.2) X10*3/uL Eos # (Auto) 0.2 (0.0-0.4) X10*3/uL Baso # (Auto) 0.0 (0.0-0.2) X10*3/uL Abs Immat Gran (auto) 0.03 (0.00-0.03) X10*3/uL Absolute Neuts (auto) 7.1 (2.0-8.3) x10*3/uL Absolute Nucleated RBC 0.000 (0.0-0.012) X10*3/uL Nucleated RBC % (auto) 0.0 (0.0-0.2) /100WBC Sodium 136 (135-145) mmol/L Potassium 3.8 (3.3-5.1) mmol/L Chloride 97 (96-108) mmol/L Carbon Dioxide 28 (22-29) mmol/L Anion Gap 15 (12-20) BUN 12 (9-16) mg/dL Creatinine 1.17 (0.5-1.4) mg/dL Estim Creat Clear Calc 45.8 Estimated GFR 47 POC Glucose 419 H* (60-115) mg/dL Random Glucose 444 H* (60-115) mg/dL Calcium 9.8 (8.4-10.2) mg/dL Total Bilirubin 0.3 (0.0-1.0) mg/dL Direct Bilirubin 0.1 (0.0-0.5) mg/dL AST 22 (5-31) U/L ALT 30 (0-31) U/L Alkaline Phosphatase 138 H (39-117) U/L Troponin I High Sens (<3.5-17.0) ng/L Total Protein 8.2 H (6.5-8.0) g/dL Albumin 4.1 (3.5-5.0) g/dL B-Hydroxybutyrate 0.07 H (0.02-0.027) mmol/L 10/01/22 Range/Units 19:43 WBC (4.8-10.8) X10*3/uL RBC (4.20-5.50) X10*6/uL Hgb (12.0-16.0) g/dl Hct (37.0-47.0) % MCV (80.0-98.0) fL MCH (27.0-33.0) pg MCHC (31.0-35.0) g/dl RDW (11.0-16.0) % Plt Count (160-400) X10*3/uL MPV (9.4-12.3) fL Immature Gran % (Auto) (0.0-0.4) % Neut % (Auto) (45-73) % Lymph % (Auto) (20-40) % [place] % (Auto) (2-11) % Eos % (Auto) (0-4) % Baso % (Auto) (0-2) % Lymph # (Auto) (1.2-4.9) X10*3/uL [place] # (Auto) (0.1-1.2) X10*3/uL Eos # (Auto) (0.0-0.4) X10*3/uL Baso # (Auto) (0.0-0.2) X10*3/uL Abs Immat Gran (auto) (0.00-0.03) X10*3/uL Absolute Neuts (auto) (2.0-8.3) x10*3/uL Absolute Nucleated RBC (0.0-0.012) X10*3/uL Nucleated RBC % (auto) (0.0-0.2) /100WBC Sodium (135-145) mmol/L Potassium (3.3-5.1) mmol/L Chloride (96-108) mmol/L Carbon Dioxide (22-29) mmol/L Anion Gap (12-20) BUN (9-16) mg/dL Creatinine (0.5-1.4) mg/dL Estim Creat Clear Calc Estimated GFR POC Glucose (60-115) mg/dL Random Glucose (60-115) mg/dL Calcium (8.4-10.2) mg/dL Total Bilirubin (0.0-1.0) mg/dL Direct Bilirubin (0.0-0.5) mg/dL AST (5-31) U/L ALT (0-31) U/L Alkaline Phosphatase (39-117) U/L Troponin I High Sens < 2.7 (<3.5-17.0) ng/L Total Protein (6.5-8.0) g/dL Albumin (3.5-5.0) g/dL B-Hydroxybutyrate (0.02-0.027) mmol/L Critical Care Time Critical Care Time Critical Care Time: Yes Total Critical Care Time: 60 Attestation: I have personally provided critical care time. Time includes review of lab data, radiology results, discussion with consultants, and monitoring for potential decompensation. Intervention performed as documented. Discharge Plan Discharge Clinical Impression: HTN (hypertension), Hyperglycemia Patient Disposition: Home, Self-Care Instructions: Hypertension (ED), Diabetic Hyperglycemia (ED) Additional Instructions: Please follow-up with your primary care physician tomorrow. If you have any worsening or new symptoms, please return to the emergency room or call 911 Prescriptions: New nifedipine 60 mg tablet extended release 60 mg PO DAILY Qty: 30 0RF No Action diclofenac sodium [Arthritis Pain (diclofenac)] 1 % gel 2 g topical QID 14 Days Qty: 100 0RF Rx Instructions: apply to single elbow, wrist or hand; for hand includes palm/fingers/back of hand insulin glargine [Lantus Solostar U-100 Insulin] 100 unit/mL (3 mL) insulin pen 14 unit subcut BEDTIME Qty: 3 0RF cholecalciferol (vitamin D3) 50 mcg (2,000 unit) tablet 50 mcg PO DAILY Qty: 90 3RF (DME) pen needle, diabetic [Pen Needle] 31 gauge x 1/4 needle See Rx Instructions .Route Qty: 100 3RF Rx Instructions: As directed daily (DME) OneTouch Ultra Test Strip See Rx Instructions .Route Qty: 100 12RF Rx Instructions: As directed - to test blood sugar TID gabapentin 400 mg capsule 400 mg PO BID Qty: 90 1RF aspirin 81 mg tablet,chewable 81 mg PO DAILY Qty: 30 3RF losartan 100 mg tablet 100 mg PO BEDTIME 30 Days Qty: 30 3RF nifedipine 30 mg tablet extended release 24hr 30 mg PO DAILY 30 Days Qty: 30 3RF Protocol: Hold for SBP< HOLD for SBP < : 90 atorvastatin 80 mg tablet 80 mg PO BEDTIME Qty: 30 3RF clopidogrel [Plavix] 75 mg tablet 75 mg PO DAILY 30 Days Qty: 30 3RF glimepiride 4 mg tablet 4 mg PO QAM Qty: 30 1RF Trulicity 1.5 mg/0.5 mL pen injector 1.5 mg subcut QWEEK Qty: 2 3RF fluoxetine 20 mg capsule 20 mg PO DAILY zolpidem 10 mg tablet 10 mg PO BEDTIME lorazepam 0.5 mg tablet 0.5 mg PO DAILY PRN (Reason: Anxiety) (DME) BLOOD PRESSURE MONITOR See Rx Instructions .Route .MEDSUPPLY Qty: 1 0RF Rx Instructions: As directed (DME) blood-glucose meter [OneTouch Ultra2 Meter] Kit See Rx Instructions .Route Qty: 1 0RF Rx Instructions: As directed- To test blood sugar TID (DME) lancets [OneTouch UltraSoft Lancets] Misc See Rx Instructions .Route Qty: 200 12RF Rx Instructions: As directed- To test blood sugar TID cyclobenzaprine 10 mg tablet 10 mg PO BEDTIME 7 Days Qty: 7 0RF pioglitazone [Actos] 15 mg tablet 15 mg PO DAILY Qty: 30 4RF
[2022-10-01 20:10] LABS: Alanine Aminotransferase 30 U/L (0-31); Albumin Level 4.1 g/dL (3.5-5.0); Alkaline Phosphatase 138 U/L (39-117); Anion Gap 15 (12-20); Aspartate Amino Transferase 22 U/L (5-31); Bilirubin Direct 0.1 mg/dL (0.0-0.5); Bilirubin Total 0.3 mg/dL (0.0-1.0); Blood Urea Nitrogen 12 mg/dL (9-16); Calcium 9.8 mg/dL (8.4-10.2); Carbon Dioxide 28 mmol/L (22-29); Chloride 97 mmol/L (96-108); Creatinine Clr Calc Pharmacy 45.8; Estimated Glomerular Filt Rate 47; Glucose Random 444 mg/dL (60-115); Potassium 3.8 mmol/L (3.3-5.1); Sodium 136 mmol/L (135-145); Total Protein 8.2 g/dL (6.5-8.0)
[2022-10-01 20:49] LABS: Troponin-I High Sensitivity < 2.7 ng/L (<3.5-17.0)
[2022-10-01 21:22] VITALS: BP 155/77; PULSE 84; RESP 18; TEMP 36.8; O2SAT 96
[2022-10-01 22:00] VITALS: BP 159/84; PULSE 89; RESP 16; TEMP 37; O2SAT 98
[2022-10-01 22:55] LABS: Glucose, Whole Blood 156 mg/dL (60-115)
== END 2022-10-01 23:16 | disposition home or self-care (01) ==
PROVIDERS: Emergency Provider Emergency Medicine; PCP Internal Medicine
DX: I10 Essential (primary) hypertension (principal); E11.65 Type 2 diabetes mellitus with hyperglycemia; E78.00 Pure hypercholesterolemia, unspecified; Z79.4 Long term (current) use of insulin; Z79.02 Long term (current) use of antithrombotics/antiplatelets; Z79.899 Other long term (current) drug therapy; Z79.82 Long term (current) use of aspirin
CPT/HCPCS: 36415; 80048; 80076; 82010; 82947; 84484; 85025; 93005; 96361; 96374; 99284; 99285

== ENCOUNTER 2022-11-07 09:15 | Emergency (ER) | payer OTHER, SELFPAY ==
--- NOTE | ~2022-11-07 | CT_ITS ---
EXAMINATION: CT HEAD WITHOUT CONTRAST CLINICAL INFORMATION: Left-sided headache, history of CVA. COMPARISON: Head CT scan dated 10/03/2021. TECHNIQUE: Contiguous axial imaging was performed from the skull base to vertex without intravenous administration of contrast. Coronal and sagittal reformatted images were obtained. This CT examination was performed using dose optimization techniques as appropriate, variously including the following: *Automated exposure control *Adjustment of mA and/or kV according to patient size (this includes techniques or standardized protocols for targeted exams where dose is matched to indication/reason for exam; i.e. extremities or head) *Use of iterative reconstruction technique DLP: 620 mGy-cm FINDINGS: There is mild widening of the cortical sulci and associated ventriculomegaly. The lateral ventricles are symmetrical. The third and fourth ventricles are in their normal midline position. The basilar and prepontine cisterns are unremarkable. Internal periventricular microvascular changes are seen. Incidental partial empty sella without significant change or associated abnormality. There is no acute intra or extracerebral abnormality. There is no mass effect or midline shift. Sections through the bony calvarium are unremarkable. The orbits are intact. The paranasal sinuses are clear. The mastoid air cells are clear. CT/CT head/brain wo IV con IMPRESSION: No acute intracranial pathology.
[2022-11-07 09:28] VITALS: BP 178/81; PULSE 93; RESP 16; TEMP 36.1; O2SAT 98; BMI 32.2
--- NOTE | 2022-11-07 10:42 | ED.GENADULT ---
HPI - General Adult General Chief complaint: General Medical Stated complaint: L Ear & Head Pain Time Seen by Provider: 11/07/22 10:06 Source: patient and RN notes reviewed Mode of arrival: ambulatory Limitations: no limitations History of Present Illness HPI narrative: This is a 62-year-old female, with a past medical history of CVA, hypertension, fibromyalgia, anxiety, depression, GERD, and diabetes, presenting to the emergency department with complaints of left-sided headache x4 days. Patient states that the pain radiates from back for head into the entire left side of her head. Patient admits to having some blurred vision at times. She states that she also has had ear pain, mild congestion, and sneezing. Patient denies any fevers, chills chest pain, shortness of breath, cough, abdominal pain, nausea, vomiting, or diarrhea. She states that she has had 2 CVAs in the last 3 years, she is on Plavix. She has been taking Tylenol for her symptoms without any relief. No other complaints or concerns at this time. MD complaint: Headache Onset (ago): day(s) Radiation: neck Severity: moderate Quality: aching Pain Consistency: constant Relieving factors: none Exacerbating factors: none Associated symptoms: denies other symptoms Treatments prior to arrival: none Related Data Home Medications Medication Instructions Recorded Confirmed fluoxetine 20 mg capsule 20 mg PO DAILY 11/12/20 07/24/22 lorazepam 0.5 mg tablet 0.5 mg PO DAILY PRN Anxiety 11/12/20 07/24/22 zolpidem 10 mg tablet 10 mg PO BEDTIME 11/12/20 07/24/22 Previous Rx's Medication Instructions Recorded BLOOD PRESSURE MONITOR #1 ea 11/26/20 diclofenac sodium 1 % topical gel 2 g topical QID 14 days #100 grams 07/26/21 (Arthritis Pain (diclofenac)) blood-glucose meter (RCT LogicTouch #1 ea 10/19/21 Ultra2 Meter kit) insulin glargine 100 unit/mL (3 14 unit (0.14 mL) subcut BEDTIME 11/29/21 mL) subcutaneous pen (Lantus #3 mL Solostar U-100 Insulin) pioglitazone 15 mg tablet (Actos) 15 mg PO DAILY #30 tabs 11/29/21 cholecalciferol (vitamin D3) 50 50 mcg PO DAILY #90 tabs 01/25/22 mcg (2,000 unit) tablet blood sugar diagnostic (OneTouch #100 ea 01/31/22 Ultra Test strips) pen needle, diabetic 31 gauge x #100 ea 01/31/2204/19 (Pen Needle) gabapentin 400 mg capsule 400 mg PO BID #90 caps 05/29/22 lancets (OneTouch UltraSoft #200 ea 06/19/22 Lancets) cyclobenzaprine 10 mg tablet 10 mg PO BEDTIME 7 days #7 tabs 07/24/22 losartan 100 mg tablet 100 mg PO BEDTIME 30 days #30 tabs 08/23/22 nifedipine 30 mg tablet,extended 30 mg PO DAILY 30 days #30 tabs 08/23/22 release 24 hr atorvastatin 80 mg tablet 80 mg PO BEDTIME #30 tabs 09/20/22 clopidogrel 75 mg tablet (Plavix) 75 mg PO DAILY 30 days #30 tabs 09/20/22 dulaglutide 1.5 mg/0.5 mL 1.5 mg (0.5 mL) subcut QWEEK #2 mL 09/20/22 subcutaneous pen injector ([facility]) glimepiride 4 mg tablet 4 mg PO QAM #30 tabs 09/20/22 nifedipine 60 mg tablet,extended 60 mg PO DAILY #30 tabs 10/01/22 release aspirin 81 mg chewable tablet 81 mg PO DAILY #30 tabs 10/30/22 acetaminophen 325 mg capsule 650 mg PO Q6H PRN pain #45 caps 11/07/22 (Tylenol) cyclobenzaprine 5 mg tablet 5 mg PO TID PRN muscle spasm #14 11/07/22 tabs lidocaine 5 % topical patch 1 patch topical DAILY #15 ea 11/07/22 (Lidoderm) Allergies Allergy/AdvReac Type Severity Reaction Status Date / Time ibuprofen [From Motrin] Allergy Mild STOMACH Verified 11/07/22 09:27 UPSET oxycodone [From Percocet] Allergy Mild ITCHING Verified 11/07/22 09:27 lactose [LACTOSE] Allergy Unknown ABD PAIN Verified 11/07/22 09:27 metformin AdvReac Unknown nausea, Verified 11/07/22 09:27 somnolence amlodipine AdvReac Swelling Verified 11/07/22 09:27 Review of Systems Review of Systems: Yes all other systems are reviewed and are negative Constitutional: Constitutional: Reports as per HPI ENT: Reports Normal hearing present Neurologic: Reports Normal hearing present [facility] Past Medical History Medical History Anemia, iron deficiency Anxiety Benign essential hypertension CVA (cerebral vascular accident) Depression Diabetes Diabetes mellitus Fibromyalgia GERD without esophagitis HTN (hypertension) Insomnia Intracranial vascular stenosis Lumbar degenerative disc disease Obesity (BMI 30-39.9) Pure hypercholesterolemia Right thalamic stroke Sciatic pain Uncontrolled type 2 diabetes mellitus with hyperglycemia, with long-term current use of insulin Surgical History H/O bilateral breast reduction surgery History of appendectomy History of carpal tunnel release History of section History of hysterectomy History of left salpingo-oophorectomy History of surgery Family History Family History Father Suicide Epilepsy Mother Poor high blood pressure control Diabetes Hypertension Daughter Spina bifida Brother Stroke Other Mental health problem Social History Social History Household Members: Significant Other Housing: Apartment Do you presently have visiting nurse or other home services: No Alcohol intake: never Patient Tobacco Use Status: Never used Tobacco e-Cigarette/Vaping Use: Never Used Second Hand Smoke Exposure: Yes Advance Directives: No service: No Current occupational status: disabled Cognitive needs: Yes (cane) Hearing needs: No Vision needs: Yes (glasses) Physical Exam ED Vital Signs: Vital Signs - 24 hr 11/07/22 09:28 Temperature 97 F Pulse Rate 93 Respiratory Rate 16 Blood Pressure 178/81 H Pulse Oximetry 98 Oxygen Delivery Method Room Air BMI result Body Mass Index 32.2 Const General: cooperative, comfortable and no acute distress Orientation/consciousness: patient oriented x3 Limitations: no limitations HENMT Head: Yes normal to inspection, Yes normocephalic and Yes atraumatic Ears: hearing grossly normal bilaterally and TM's normal bilaterally General nose exam: Normal external nose present Face and sinus: Yes normal facial exam Mouth: Normal oral and palatal mucosa present, oropharynx normal and moist mucous membranes Throat: Yes posterior oropharynx normal Eyes General: appearance normal, both eyes and all related structures Eyelids: Yes eyelids normal Conjunctivae: conjunctivae normal Sclerae: sclerae normal Pupils: Equal, round and reactive pupils present EOM: EOMs intact bilaterally Neck Neck: Yes normal visual inspection, Yes full ROM, Yes no lymphadenopathy and Yes no meningeal signs Lymphatic: no lymphadenopathy noted Chest Chest palpation & inspection: normal inspection of the chest Resp Effort & Inspection: normal respiratory effort and able to speak in complete sentences Auscultation: clear to auscultation bilaterally, no crackles, no rales, no rhonchi and no wheezes Cardio Rate: regular rate Rhythm: regular rhythm Heart sounds: S1 normal heart sound present and S2 normal heart sound present GI Inspection: Yes normal to inspection Back/Spine/Pelvis Other: Tenderness to palpation along the posterior occiput, and left trapezius muscles with spasm noted. No midline cervical spine tenderness. Range of motion of the neck is full and intact. Cervical Spine: normal cervical lordosis and cervical ROM normal Thoracic/Lumbar Spine: thoracic and lumbar spine normal to inspection Skin General skin exam: no rashes or lesions noted Trauma: no lacerations or abrasions Wounds: no wounds Neuro General: patient oriented x3, moves all extremities, no meningeal signs and CN's II-XI intact bilaterally Cranial nerves: Yes Equal, round and reactive pupils present, Yes Bilaterally intact EOM present, Yes Nystagmus not present, Yes Normal facial strength present, Yes Midline tongue present, Yes Normal hearing present, Yes Ability to bilaterally rotate head present and Yes Ability to bilaterally elevate shoulders present Motor exam (neuro): Pronator motor function not present Extrem General: Yes normal to inspection Right upper extremity: normal to inspection Left upper extremity: normal to inspection Right lower extremity: normal to inspection Left lower extremity: normal to inspection Course Reevaluation(s) Reevaluation #1: COVID negative, CT head unremarkable. Patient mildly hyperglycemic at 3:05 a.m., patient reports that she has not taken her diabetic medications today, advised to go home and take medications. Patient also mildly hypertensive at 178/81. She reports that she did not take her blood pressure medication and will do so upon discharge. Patient's symptoms likely due to tension like headache. Discussed results with patient, will treat conservatively with Tylenol, muscle relaxers, and lidocaine patches. Given strict return precautions. Patient advised to follow-up with primary care physician regarding her symptoms. Patient understands and agrees with plan. Vital signs stable, patient is stable for discharge. Time: 11:58 Medical Decision Making Medical Decision Making [facility] Narrative: This is a 62-year-old female, with a history presenting to the emergency department for evaluation of left-sided headache x4 days. On arrival, patient mildly hypertensive at 178/81. Patient has left paraspinous cervical tenderness as well as left trapezius muscle tenderness with spasm. Tenderness palpation with movement of neck, no meningeal signs. No nuchal rigidity. Patient has no fevers or chills. Differential diagnoses include migraine versus tension type headache, CVA, ICH atypical migraine, viral syndrome. Neurologic exam without any evidence of focal neurologic findings. Presentation not consistent with acute intracranial bleed however given history and on anticoagulants, will obtain image. Patient has no meningeal signs, and full range of motion of the neck, no indication for imaging or lumbar puncture at this time. Plan: Head CT, viral swabs. Differential Diagnosis Differential Diagnoses: The differential diagnosis associated with the presentation includes CVA, ICH, migraine headache, tension headache, atypical migraine, viral syndrome Admission/Observation Consideration of admission/observation: Escalation of care including admission/observation considered Patient would have been admitted to the hospital had her work up had any findings where hospital admission was appropriate and her clinical presentation warranted hospital admission. Lab Data [facility] Lab Attestation statement: I reviewed the patient's lab results. See above Labs: Lab Results 11/07/22 11/07/22 Range/Units 10:42 11:31 POC Glucose 305 H (60-115) mg/dL COVID-19 (DEVEN) Negative (Negative) COVID-19 Clin Com See Note Radiology Impression Discussion of test interpretation with radiology: I have reviewed the radiologist's reading. Radiologist Impression: COMPARISON: Head CT scan dated 10/03/2021. TECHNIQUE: Contiguous axial imaging was performed from the skull base to vertex without intravenous administration of contrast. Coronal and sagittal reformatted images were obtained. This CT examination was performed using dose optimization techniques as appropriate, variously including the following: *Automated exposure control *Adjustment of mA and/or kV according to patient size (this includes techniques or standardized protocols for targeted exams where dose is matched to indication/reason for exam; i.e. extremities or head) *Use of iterative reconstruction technique DLP: 620 mGy-cm FINDINGS: There is mild widening of the cortical sulci and associated ventriculomegaly. The lateral ventricles are symmetrical. The third and fourth ventricles are in their normal midline position. The basilar and prepontine cisterns are unremarkable. Internal periventricular microvascular changes are seen. Incidental partial empty sella without significant change or associated abnormality. There is no acute intra or extracerebral abnormality. There is no mass effect or midline shift. Sections through the bony calvarium are unremarkable. The orbits are intact. The paranasal sinuses are clear. The mastoid air cells are clear. CT/CT head/brain wo IV con IMPRESSION: No acute intracranial pathology. Dictated By: Stewart Collazo MD Signed By: <Electronically signed by Stewart Collazo MD in OV> 11/07/22 1110 DD/ 1100 TD/TT:? Receiver Dispatcher: RAINER External Record Review External record reviewed: Inpatient record, Office record, Outpatient record, Prior outpatient labs, Prior outpatient radiology, Primary care record and Outside ED record Discharge Plan Discharge Clinical Impression: Cervicalgia, Tension-type headache Patient Disposition: Home, Self-Care Instructions: Tension Headache (ED), Neck Pain (ED) Additional Instructions: Your CT scan of your head was normal today. You tested negative for COVID today. Your symptoms are likely due to muscle spasms in your neck causing you to have headaches. Please take Tylenol as directed as well as muscle relaxers. Please be aware that muscle relaxers can cause drowsiness, do not drink alcohol or drive while taking these medications. I am also prescribing a lidocaine patch, apply to your neck as needed for symptoms. Gentle stretching, heat or ice can also help with your pain. Follow-up with your primary care physician, call today to make an appointment. If any new or worsening symptoms occur including but not limited to worsening headaches, fevers, chills, weakness, numbness, tingling, please return for re-evaluation Prescriptions: New acetaminophen [Tylenol] 325 mg capsule 650 mg PO Q6H PRN (Reason: pain) Qty: 45 0RF cyclobenzaprine 5 mg tablet 5 mg PO TID PRN (Reason: muscle spasm) Qty: 14 0RF lidocaine [Lidoderm] 5 % adhesive patch,medicated 1 patch topical DAILY Qty: 15 0RF Rx Instructions: leave on most painful area for up to 12 hrs No Action diclofenac sodium [Arthritis Pain (diclofenac)] 1 % gel 2 g topical QID 14 Days Qty: 100 0RF Rx Instructions: apply to single elbow, wrist or hand; for hand includes palm/fingers/back of hand insulin glargine [Lantus Solostar U-100 Insulin] 100 unit/mL (3 mL) insulin pen 14 unit subcut BEDTIME Qty: 3 0RF cholecalciferol (vitamin D3) 50 mcg (2,000 unit) tablet 50 mcg PO DAILY Qty: 90 3RF (DME) pen needle, diabetic [Pen Needle] 31 gauge x 1/4 needle See Rx Instructions .Route Qty: 100 3RF Rx Instructions: As directed daily (DME) OneTouch Ultra Test Strip See Rx Instructions .Route Qty: 100 12RF Rx Instructions: As directed - to test blood sugar TID gabapentin 400 mg capsule 400 mg PO BID Qty: 90 1RF losartan 100 mg tablet 100 mg PO BEDTIME 30 Days Qty: 30 3RF nifedipine 30 mg tablet extended release 24hr 30 mg PO DAILY 30 Days Qty: 30 3RF Protocol: Hold for SBP< HOLD for SBP < : 90 atorvastatin 80 mg tablet 80 mg PO BEDTIME Qty: 30 3RF clopidogrel [Plavix] 75 mg tablet 75 mg PO DAILY 30 Days Qty: 30 3RF glimepiride 4 mg tablet 4 mg PO QAM Qty: 30 1RF Trulicity 1.5 mg/0.5 mL pen injector 1.5 mg subcut QWEEK Qty: 2 3RF aspirin 81 mg tablet,chewable 81 mg PO DAILY Qty: 30 3RF nifedipine 60 mg tablet extended release 60 mg PO DAILY Qty: 30 0RF fluoxetine 20 mg capsule 20 mg PO DAILY zolpidem 10 mg tablet 10 mg PO BEDTIME lorazepam 0.5 mg tablet 0.5 mg PO DAILY PRN (Reason: Anxiety) (DME) BLOOD PRESSURE MONITOR See Rx Instructions .Route .MEDSUPPLY Qty: 1 0RF Rx Instructions: As directed (DME) blood-glucose meter [OneTouch Ultra2 Meter] Kit See Rx Instructions .Route Qty: 1 0RF Rx Instructions: As directed- To test blood sugar TID (DME) lancets [OneTouch UltraSoft Lancets] Misc See Rx Instructions .Route Qty: 200 12RF Rx Instructions: As directed- To test blood sugar TID cyclobenzaprine 10 mg tablet 10 mg PO BEDTIME 7 Days Qty: 7 0RF pioglitazone [Actos] 15 mg tablet 15 mg PO DAILY Qty: 30 4RF
[2022-11-07 11:03] LABS: COVID-19 Test Negative (Negative); IDNOW Serial# BCCEAD1C
[2022-11-07 11:35] LABS: Glucose, Whole Blood 305 mg/dL (60-115)
[2022-11-07 12:03] VITALS: BP 187/93; PULSE 78; RESP 18; O2SAT 98
== END 2022-11-07 12:06 | disposition home or self-care (01) ==
PROVIDERS: Physician Assistant Medical; Emergency Provider Emergency Medicine; PCP Internal Medicine
DX: M54.2 Cervicalgia (principal); G44.209 Tension-type headache, unspecified, not intractable; I10 Essential (primary) hypertension; E11.9 Type 2 diabetes mellitus without complications; Z79.899 Other long term (current) drug therapy; Z20.822 Contact with and (suspected) exposure to COVID-19
CPT/HCPCS: 70450; 82947; 87635; 99283; 99284

== ENCOUNTER 2023-02-13 11:18 | Outpatient (AMB) | payer OTHER, SELFPAY ==
[2023-02-13 11:19] VITALS: BP 148/90; PULSE 87; O2SAT 98; BMI 30.3
--- NOTE | 2023-02-13 11:19 | MHC.PC.OV ---
Vital Signs 02/13/23 11:19 02/13/23 11:56 Height 4 ft 11 in Weight 150 lb 0.6 oz BMI 30.3 BP 148/90 H 146/80 H Blood Pressure Location Lt brachial Lt brachial Position Sitting Sitting Pulse 87 Pulse Source Pulse Oximeter Pulse Oximetry (%) 98 Oxygen Delivery Method Room Air Intake Visit Reasons: 3M Follow up DM, lymphedema, hyperlipidemia, HTN Director New Product Required: No Allergies ibuprofen [From Motrin] Allergy (Mild, Verified 02/13/23 11:35) STOMACH UPSET oxycodone [From Percocet] Allergy (Mild, Verified 02/13/23 11:35) ITCHING lactose [LACTOSE] Allergy (Unknown, Verified 02/13/23 11:35) ABD PAIN metformin Adverse Reaction (Unknown, Verified 02/13/23 11:35) nausea, somnolence amlodipine Adverse Reaction (Verified 02/13/23 11:35) Swelling Medication List - Last Reconciled 02/13/23 by VINNY Haile acetaminophen (Tylenol) 650 mg (2 x 325 mg) PO Q6H PRN aspirin 81 mg PO DAILY atorvastatin 80 mg PO BEDTIME [BLOOD PRESSURE MONITOR As directed] blood sugar diagnostic (SpectraLinear Ultra Test strips) As directed - to test blood sugar TID blood-glucose meter (Zinitixuch Ultra2 Meter kit) As directed- To test blood sugar TID cholecalciferol (vitamin D3) 50 mcg PO DAILY clopidogrel (Plavix) 75 mg PO DAILY 30 days diclofenac sodium 1% (Arthritis Pain (diclofenac)) 2 grams topical QID 14 days dulaglutide (Trulicity) 1.5 mg (0.5 mL) subcut QWEEK fluoxetine 20 mg PO DAILY gabapentin 400 mg PO BID glimepiride 4 mg PO QAM insulin glargine (Lantus Solostar U-100 Insulin) 14 units (0.14 mL) subcut BEDTIME lancets (Zinitixuch UltraSoft Lancets) As directed- To test blood sugar TID lidocaine 5% (Lidoderm) 1 patch topical DAILY lorazepam 0.5 mg PO DAILY PRN losartan 100 mg PO BEDTIME 30 days nifedipine ER 30 mg See Protocol PO DAILY 30 days pen needle, diabetic (Pen Needle) As directed daily pioglitazone (Actos) 15 mg PO DAILY zolpidem 10 mg PO BEDTIME Tobacco use date assessed: 02/13/23 HPI 3M Follow up DM, lymphedema, hyperlipidemia, HTN HPI Details Patient is a 62-year-old female who presents today for a routine follow-up. Patient of Dr. Peoples. Medical history significant for diabetes, hypercholesterolemia, GERD, insomnia, anxiety, depression, fibromyalgia, hypertension among others. Patient reports vaginal itching for the past couple weeks, no burning with urination. Reports right bottom back tooth pain for the past couple days, will be calling her dentist - requesting antibiotic. Does not always take losartan due to low blood pressures intermittently at home, reports blood pressure couple days ago 100/66. Reports blood sugars running in 200s blood sugar 500 about 2 days ago. Will be calling for diabetic eye exam. Will also call endocrinology Dr. Reilly for an appointment. Reports she does not have anymore Actos. No shortness of breath or chest pain. [facility] Medical History Uncontrolled type 2 diabetes mellitus with hyperglycemia, with long-term current use of insulin Intracranial vascular stenosis Diabetes HTN (hypertension) CVA (cerebral vascular accident) Right thalamic stroke Obesity (BMI 30-39.9) Depression Anxiety Insomnia GERD without esophagitis Anemia, iron deficiency Lumbar degenerative disc disease Pure hypercholesterolemia Benign essential hypertension Diabetes mellitus Sciatic pain Fibromyalgia Surgical History History of surgery History of left salpingo-oophorectomy H/O bilateral breast reduction surgery History of carpal tunnel release History of appendectomy History of section History of hysterectomy Family History Father Suicide Epilepsy Mother Poor high blood pressure control Diabetes Hypertension Daughter Spina bifida Brother Stroke Other Mental health problem Social History Household Members: Significant Other Housing: Apartment Do you presently have visiting nurse or other home services: No Alcohol intake: never Patient Tobacco Use Status: Never used Tobacco e-Cigarette/Vaping Use: Never Used Second Hand Smoke Exposure: Yes service: No Current occupational status: disabled Cognitive needs: Yes (cane) Hearing needs: No Vision needs: Yes (glasses) Questionnaire Thrive Questionnaire Date Thrive assessed: 04/21/22 AUDIT C Alcohol Use Questionnaire (AUDIT-C) 1. How often do you have a drink containing alcohol?: Never 3. How often do you have six or more drinks on one occasion?: Never Total Score: 0 Score Reviewed/Action Taken: No SAUL-7 AMB Questionnaire SAUL-7 Date SAUL - 7 assessed: 04/21/22 Source: Developed by Drs. Casper Tamayo, Ayah Gaviria, Malik Brady and colleagues, with an educational óscar from [employer]. Review of Systems Const Denies body aches, Denies chills, Denies fever(s) and Denies headache(s) ENT Reports as per HPI, Denies dizziness, Denies otalgia, Denies headache(s), Denies nasal discharge, Denies sinus pain and Denies sore throat Card Denies chest pain, Denies edema, Denies lightheadedness and Denies dyspnea Resp Denies dyspnea and Denies wheezing GI Denies abdominal pain Reports as per HPI and Denies dysuria Musc Denies myalgias Skin/Breast Denies rash Neuro Denies dizziness and Denies headache(s) Aller/Immun Denies wheezing Physical exam (Primary Care) Vital Signs: Last Vital Signs Pulse 87 02/13/23 11:19 BP 148/90 H 02/13/23 11:19 Pulse Ox 98 02/13/23 11:19 Oxygen Delivery Method Room Air 02/13/23 11:19 BMI result Body Mass Index 30.3 Tobacco/Smoking Status: Tobacco use Status Tobacco use date assessed 02/13/23 02/13/23 11:20 Patient Tobacco Use Status Never used Tobacco 02/13/23 11:20 e-Cigarette/Vaping Use Never Used 02/13/23 11:20 Thrive Assessment: Date of Thrive Assessment Date Thrive assessed 04/21/22 02/13/23 11:20 Const General: cooperative and no acute distress Orientation/consciousness: patient oriented x3 HENMT Other: Right bottom back tooth with mild gum erythema Head: Yes normocephalic and Yes atraumatic Mouth: oropharynx normal and moist mucous membranes Throat: Yes posterior oropharynx normal Eyes General: appearance normal, both eyes and all related structures Neck Neck: Yes normal visual inspection and Yes full ROM Resp Effort & Inspection: normal respiratory effort and able to speak in complete sentences Auscultation: clear to auscultation bilaterally, no crackles, no rales, no rhonchi and no wheezes Cardio Rate: regular rate Rhythm: regular rhythm Heart sounds: S1 normal heart sound present and S2 normal heart sound present GI Auscultation: normal bowel sounds Skin General skin exam: no rashes or lesions noted Neuro General: patient oriented x3 Gait exam (Neuro): Normal gait present Extrem General: Yes full ROM and No edema Office Procedures Flu Questionnaire Does the patient have a severe egg allergy?: No Does the patient have severe life threatening allergies?: No Does the patient have a fever or illness today?: No Has the patient ever had Guillain-Ball Syndrome?: No Has the patient ever had any past reaction to a flu shot?: No Results AMB Hemoglobin A1c AMB Hemoglobin A1c 11.6 % Last Edit by DEBI De Leon on 02/13/23 11:34 Immunizations flu vacc [id number] 6mos up(PF) 60 mcg(15 mcgx4)/0.5 mL IM syringe Performing Provider: VINNY Haile Performing Location: [facility] Administered by: DEBI De Leon on 02/13/23 11:30 Dose Route Admin Location Dispensed Lot Number Expiration Date NDC Yeast Fermentation Attendant 0.5 mL IM Left Deltoid 0.5 mL [id number] 10/14/23 [id number] [employer] VIS Given Date VIS Provided VIS Publication Date 02/13/23 Single Vaccine 20 Eligibility Eligibility Date Funding Source Not [facility] Eligible 02/13/23 Private Results Reviewed Results Reviewed: Laboratory Last Values Hgb A1c (Clinic) 11.6 % (4.0-6.0) H 02/13/23 11:10 Assessment and Plan Assessment & Plan (1) Tooth pain: Code(s): K08.89 - Other specified disorders of teeth and supporting structures Plan: Start amoxicillin for 3 days Patient is to call her dentist for an appointment (2) Vulvovaginal candidiasis: Code(s): B37.31 - Acute candidiasis of vulva and vagina Plan: Start miconazole vaginal at bedtime for 7 days Notify office if after treatment (3) Uncontrolled type 2 diabetes mellitus with hyperglycemia, with long-term current use of insulin: Code(s): E11.65 - Type 2 diabetes mellitus with hyperglycemia; 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 Reilly Patient will call for diabetic eye exam Continue to monitor blood sugars at home Low-carbohydrate diet (4) Benign essential hypertension: Code(s): I10 - Essential (primary) hypertension Plan: Goal BP equal or less than 140/90 Decrease losartan to 50 mg at bedtime Continue to monitor blood pressures at home Low-sodium diet (5) Pure hypercholesterolemia: Code(s): E78.00 - Pure hypercholesterolemia, unspecified Plan: Continue atorvastatin Low-cholesterol diet Plan Patient was encouraged to complete her blood work that was ordered by her PCP Follow-up in 3 months Orders: Orders AMB Hemoglobin A1c Today E11.9 - Type 2 diabetes mellitus without complications Influenza [id number] Immunization Today Z23 - Encounter for immunization Medications: New losartan 50 mg PO BEDTIME 30 tabs 3RF I10 - Essential (primary) hypertension miconazole nitrate (Miconazole-7) 100 mg vaginal BEDTIME 7 days 7 ea 0RF B37.31 - Acute candidiasis of vulva and vagina amoxicillin 500 mg PO Q8H 3 days 9 tabs 0RF K08.89 - Other specified disorders of teeth and supporting structures Changed From insulin glargine (Lantus Solostar U-100 Insulin) 14 units (0.14 mL) subcut BEDTIME 3 mL 0RF E11.65 - Type 2 diabetes mellitus with hyperglycemia, 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 To insulin glargine (Lantus Solostar U-100 Insulin) 18 units (0.18 mL) subcut BEDTIME 3 mL 0RF E11.65 - Type 2 diabetes mellitus with hyperglycemia, Z79.4 - care home (current) use of insulin Refilled pioglitazone (Actos) 15 mg PO DAILY 30 tabs 4RF Discontinued losartan Discontinued Reason: Doctor's Order 100 mg PO BEDTIME 30 days 30 tabs 3RF I10 - Essential (primary) hypertension Coding Level of Care Code Est Pt Level 4 (42543) Diagnoses Tooth pain K08.89 Vulvovaginal candidiasis B37.31 Uncontrolled type 2 diabetes mellitus with hyperglycemia, with long-term current use of insulin E11.65; Z79.4 Benign essential hypertension I10 Pure hypercholesterolemia E78.00
[2023-02-13 11:56] VITALS: BP 146/80
== END 2023-02-13 11:58 | disposition home or self-care (01) ==
PROVIDERS: PCP Internal Medicine; Visit Provider Nurse Practitioner Family
DX: K08.89 Other specified disorders of teeth and supporting structures (principal); B37.31 Acute candidiasis of vulva and vagina; E11.65 Type 2 diabetes mellitus with hyperglycemia; Z79.4 Long term (current) use of insulin; I10 Essential (primary) hypertension; E78.00 Pure hypercholesterolemia, unspecified; Z23 Encounter for immunization; E11.9 Type 2 diabetes mellitus without complications
CPT/HCPCS: 83036; 90471; 90686; 99214

== ENCOUNTER 2023-02-13 12:08 | Outpatient (REF) | payer OTHER, SELFPAY ==
[2023-02-13 12:32] LABS: MANUAL DIFF FLAG NO
[2023-02-13 13:00] LABS: Estimated Average Glucose 298 mg/dL
[2023-02-13 13:02] LABS: Basophils Percent Auto 0.4 % (0-2); Eosinophils Absolute Auto 0.2 X10*3/uL (0.0-0.4); Hemoglobin 13.3 g/dl (12.0-16.0); Imm Gran Abs Auto 0.03 X10*3/uL (0.00-0.03); Imm Gran Pct Auto 0.3 % (0.0-0.4); Lymphocytes Absolute Auto 2.6 X10*3/uL (1.2-4.9); Lymphocytes Percent Auto 25.1 % (20-40); Mean Corpuscular HGB Conc 33.3 g/dl (31.0-35.0); Mean Corpuscular Hemoglobin 27.3 pg (27.0-33.0); Mean Platelet Volume 9.9 fL (9.4-12.3); Monocytes Absolute Auto 0.6 X10*3/uL (0.1-1.2); Neutrophils Absolute Auto 6.8 x10*3/uL (2.0-8.3); Neutrophils Percent Auto 66.2 % (45-73); Platelet Count 369 X10*3/uL (160-400); Red Blood Count 4.88 X10*6/uL (4.20-5.50); Red Cell Distribution Width 12.2 % (11.0-16.0); White Blood Count 10.3 X10*3/uL (4.8-10.8)
[2023-02-13 13:23] LABS: Alanine Aminotransferase 21 U/L (0-31); Alkaline Phosphatase 117 U/L (39-117); Anion Gap 15 (12-20); Aspartate Amino Transferase 18 U/L (5-31); Bilirubin Total 0.4 mg/dL (0.0-1.0); Blood Urea Nitrogen 13 mg/dL (9-16); Carbon Dioxide 25 mmol/L (22-29); Chloride 104 mmol/L (96-108); Cholesterol 176 mg/dL (<200); Estimated Glomerular Filt Rate > 60; Glucose Fasting 239 mg/dL (60-99); HDL Cholesterol 46 mg/dL (>40); LDL Cholesterol Calculated 106 mg/dL (<100); Potassium 3.9 mmol/L (3.3-5.1); Sodium 140 mmol/L (135-145); Triglycerides 122 mg/dL (<150)
[2023-02-13 13:40] LABS: TSH reflex Free T4 2.76 uIU/mL (0.32-4.0); Vitamin D 25-OH Total 34.6 ng/mL (>30)
[2023-02-13 13:52] LABS: Folate 14.5 ng/mL (> or = 4.0); Vitamin B12 631 pg/mL (200-900)
== END 2023-02-13 12:09 | disposition home or self-care (01) ==
LOC: HO.LAB 12:08
PROVIDERS: PCP Internal Medicine; Visit Provider Internal Medicine
DX: I10 Essential (primary) hypertension (principal); E78.00 Pure hypercholesterolemia, unspecified; E11.9 Type 2 diabetes mellitus without complications; E55.9 Vitamin D deficiency, unspecified; E53.8 Deficiency of other specified B group vitamins
CPT/HCPCS: 36415; 80053; 80061; 82306; 82607; 82746; 83036; 84443; 85025

== ENCOUNTER 2023-04-01 04:54 | Emergency (ER) | payer OTHER, SELFPAY ==
--- NOTE | 2023-04-01 | ECG_ITS ---
Test Reason : chest pain Blood Pressure : / mmHG Vent. Rate : 097 BPM Atrial Rate : 097 BPM P-R Int : 140 ms QRS Dur : 082 ms QT Int : 356 ms P-R-T Axes : 036 -04 -06 degrees QTc Int : 452 ms Normal sinus rhythm Nonspecific ST abnormality Abnormal ECG When compared with ECG of 01-OCT-2022 19:36, No significant change was found Referred By: Generic ED Physician Electronically Signed By:Arcadio Duong
--- NOTE | ~2023-04-01 | XR_ITS ---
EXAMINATION: XR CHEST CLINICAL INFORMATION: Chest pain. COMPARISON: 07/08/2022 TECHNIQUE: Frontal view of the chest was obtained. FINDINGS: No significant abnormality is noted involving the heart, lungs, mediastinum, bony thorax or soft tissues. XR/XR chest 1V IMPRESSION: Unremarkable examination.
[2023-04-01 04:55] VITALS: BP 212/106; PULSE 99; RESP 18; TEMP 36.9; O2SAT 99; BMI 30.3
[2023-04-01 05:05] VITALS: BP 198/104
--- NOTE | 2023-04-01 05:38 | ED_ITS ---
HPI - General Adult General Chief complaint: General Medical Stated complaint: Pain Time Seen by Provider: 04/01/23 05:26 Source: patient Mode of arrival: ambulatory Limitations: no limitations History of Present Illness HPI narrative: 62-year-old female history of hypertension, stroke who presents emergency department for evaluation of chest pain times 3-4 days. States the pain came on suddenly 3-4 days prior. She states the pain became worse this morning at 04:00 hours therefore she came to the emergency department for evaluation. She states the pain is been constant, she describes as sharp pain. Pain is located in her anterior chest and is worse if she pushes on her chest, worse with movement and worse with coughing. She states she took Tylenol with no relief for the pain. She denied fever, chills, rhinorrhea, sore throat, cough, shortness of breath or dyspnea on exertion. Patient has a history of hypertension and she takes nifedipine ER 30 mg and losartan 25 mg daily, she did not take her morning antihypertensive medications Related Data Home Medications Medication Instructions Recorded Confirmed fluoxetine 20 mg capsule 20 mg PO DAILY 11/12/20 02/13/23 lorazepam 0.5 mg tablet 0.5 mg PO DAILY PRN Anxiety 11/12/20 02/13/23 zolpidem 10 mg tablet 10 mg PO BEDTIME 11/12/20 02/13/23 Previous Rx's Medication Instructions Recorded BLOOD PRESSURE MONITOR #1 ea 11/26/20 diclofenac sodium 1 % topical gel 2 g topical QID 14 days #100 grams 07/26/21 (Arthritis Pain (diclofenac)) blood-glucose meter (OneTouch #1 ea 10/19/21 Ultra2 Meter kit) cholecalciferol (vitamin D3) 50 50 mcg PO DAILY #90 tabs 01/25/22 mcg (2,000 unit) tablet blood sugar diagnostic (OneTouch #100 ea 01/31/22 Ultra Test strips) pen needle, diabetic 31 gauge x #100 ea 01/31/2204/19 (Pen Needle) gabapentin 400 mg capsule 400 mg PO BID #90 caps 05/29/22 lancets (OneTouch UltraSoft #200 ea 06/19/22 Lancets) acetaminophen 325 mg capsule 650 mg (2 x 325 mg) PO Q6H PRN 11/07/22 (Tylenol) pain #45 caps lidocaine 5 % topical patch 1 patch topical DAILY #15 ea 11/07/22 (Lidoderm) nifedipine 30 mg tablet,extended 30 mg PO DAILY 30 days #30 tabs 12/23/22 release 24 hr atorvastatin 80 mg tablet 80 mg PO BEDTIME #30 tabs 01/26/23 clopidogrel 75 mg tablet (Plavix) 75 mg PO DAILY 30 days #30 tabs 01/26/23 dulaglutide 1.5 mg/0.5 mL 1.5 mg (0.5 mL) subcut QWEEK #2 mL 01/26/23 subcutaneous pen injector (Trulicity) amoxicillin 500 mg tablet 500 mg PO Q8H 3 days #9 tabs 02/13/23 losartan 50 mg tablet 50 mg PO BEDTIME #30 tabs 02/13/23 miconazole nitrate 100 mg vaginal 100 mg vaginal BEDTIME 7 days #7 ea 02/13/23 suppository (Miconazole-7) pioglitazone 15 mg tablet (Actos) 15 mg PO DAILY #30 tabs 02/13/23 insulin glargine 100 unit/mL (3 20 unit (0.2 mL) subcut BEDTIME #3 03/06/23 mL) subcutaneous pen (Lantus mL Solostar U-100 Insulin) aspirin 81 mg chewable tablet 81 mg PO DAILY #30 tabs 03/27/23 glimepiride 4 mg tablet 4 mg PO QAM #30 tabs 03/27/23 morphine 15 mg immediate release 15 mg PO Q6H PRN pain #10 tabs 04/01/23 tablet Allergies Allergy/AdvReac Type Severity Reaction Status Date / Time ibuprofen [From Motrin] Allergy Mild STOMACH Verified 02/13/23 11:35 UPSET oxycodone [From Percocet] Allergy Mild ITCHING Verified 02/13/23 11:35 lactose [LACTOSE] Allergy Unknown ABD PAIN Verified 02/13/23 11:35 metformin AdvReac Unknown nausea, Verified 02/13/23 11:35 somnolence amlodipine AdvReac Swelling Verified 02/13/23 11:35 Review of Systems 2 Review of Systems: Yes all other systems are reviewed and are negative [facility] Past Medical History Medical History Uncontrolled type 2 diabetes mellitus with hyperglycemia, with long-term current use of insulin Intracranial vascular stenosis Diabetes HTN (hypertension) CVA (cerebral vascular accident) Right thalamic stroke Obesity (BMI 30-39.9) Depression Anxiety Insomnia GERD without esophagitis Anemia, iron deficiency Lumbar degenerative disc disease Pure hypercholesterolemia Benign essential hypertension Diabetes mellitus Sciatic pain Fibromyalgia Surgical History History of surgery History of left salpingo-oophorectomy H/O bilateral breast reduction surgery History of carpal tunnel release History of appendectomy History of section History of hysterectomy Family History Family History Father Suicide Epilepsy Mother Poor high blood pressure control Diabetes Hypertension Daughter Spina bifida Brother Stroke Other Mental health problem Social History Social History Household Members: Significant Other Housing: Apartment Do you presently have visiting nurse or other home services: No Alcohol intake: never Patient Tobacco Use Status: Never used Tobacco e-Cigarette/Vaping Use: Never Used Second Hand Smoke Exposure: Yes Advance Directives: No Advance Directives Information Provided: No service: No Current occupational status: disabled Cognitive needs: Yes (cane) Hearing needs: No Vision needs: Yes (glasses) Physical Exam ED Vital Signs: Vital Signs - 24 hr 04/01/23 04:55 04/01/23 05:05 04/01/23 06:05 Temperature 98.4 F Pulse Rate 99 82 Respiratory Rate 18 12 Blood Pressure 212/106 H 198/104 H 180/89 H Pulse Oximetry 99 Oxygen Delivery Method Room Air BMI result Body Mass Index 30.3 Vital signs did reveal an elevated blood pressure of 212/106 and 198/104 Exam: General: Awake, alert in no distress Head: Normocephalic, atraumatic EENT: PERRL, Lids normal, sclera normal, conjunctiva normal, nose normal , ears normal, throat without erythema or exudates Neck: Supple, no adenopathy, no trachea midline or C-spine tenderness Lung: breath sounds symmetric, no wheezing, rales or rhonchi Chest: symmetric movement, moderate to severe pain with tenderness of her anterior chest, sternum and costochondral joints Heart: regular rate and rhythm, normal S1, S2 no murmurs or rubs Abdomen: soft, non-tender, nondistended, normal bowel sounds Back: no vertebral tenderness, no CVAT Extremities: no deformities, moves all extremities symmetrically Neuro: Awake, alert, oriented, normal speech, cranial nerves intact, moves all extremities symmetrically Psych: Pleasant, cooperative Medications Administered Discontinued Medications Generic Name Dose Route Start Last Admin Trade Name Emerson PRN Reason Stop Dose Admin Losartan Potassium 25 mg 04/01/23 05:38 04/01/23 06:03 Losartan Potassium 25 Mg Tablet PO 04/01/23 05:39 25 mg ONCE ONE Administration Protocol Morphine Sulfate 4 mg 04/01/23 05:38 04/01/23 06:03 Morphine Sulfate 4 Mg/Ml Cartridge IVPUSH 04/01/23 05:39 4 mg ONCE STA Administration Protocol Ondansetron HCl 4 mg 04/01/23 05:38 04/01/23 06:03 Ondansetron Hcl 4 Mg/2 Ml Vial IVPUSH 04/01/23 05:39 4 mg ONCE ONE Administration Medical Decision Making Medical Decision Making MDM Narrative: 62-year-old female with history of hypertension stroke who presents emergency department for evaluation of 3-4 days of constant chest pain worse at 04:00 hours this morning. Patient's blood pressure was elevated, she does have hypertension but did not take her morning medications. Vital signs did reveal an elevated blood pressure otherwise unremarkable. She did have significant tenderness palpation of her anterior chest wall. Following evaluation was ordered: CBC, CMP, PT/INR, PTT, troponin, chest x-ray, EKG Patient was treated with morphine 4 mg IV, nifedipine ER 30 mg orally and losartan 25 mg orally (these are the patient's outpatient antihypertensive medications) 06:44 My interpretation patient's laboratory evaluation as follows: CBC was normal. Coags normal. Glucose elevated 211. LFTs were normal. Troponin was below detectable limits which is reassuring given her constant pain. Patient's blood pressure improved after receiving or oral medications Patient chest pain also improved after receiving morphine Patient's pain is most likely chest wall pain versus costochondritis. Patient was advised to take Tylenol for pain and for pain not relieved by this medication she was prescription for morphine 15 mg pills every 6 hours as needed pain Differential Diagnosis Differential Diagnoses: The differential diagnosis associated with the presentation includes Differential diagnosis includes was not limited to myocardial infarction, myocardial ischemia, musculoskeletal pain, costochondritis, noncompliance with antihypertensive medications Admission/Observation Consideration of admission/observation: Escalation of care including admission/observation considered Lab Data MDM Lab Attestation statement: I reviewed the patient's lab results. See MDM above 04/01/23 05:56 04/01/23 05:56 Labs: Lab Results 04/01/23 Range/Units 05:56 WBC 9.8 (4.8-10.8) X10*3/uL RBC 4.54 (4.20-5.50) X10*6/uL Hgb 12.3 (12.0-16.0) g/dl Hct 36.3 L (37.0-47.0) % MCV 80.0 (80.0-98.0) fL MCH 27.1 (27.0-33.0) pg MCHC 33.9 (31.0-35.0) g/dl RDW 12.2 (11.0-16.0) % Plt Count 360 (160-400) X10*3/uL MPV 9.7 (9.4-12.3) fL Immature Gran % (Auto) 0.1 (0.0-0.4) % Neut % (Auto) 56.5 (45-73) % Lymph % (Auto) 35.2 (20-40) % [place] % (Auto) 6.1 (2-11) % Eos % (Auto) 1.7 (0-4) % Baso % (Auto) 0.4 (0-2) % Lymph # (Auto) 3.4 (1.2-4.9) X10*3/uL [place] # (Auto) 0.6 (0.1-1.2) X10*3/uL Eos # (Auto) 0.2 (0.0-0.4) X10*3/uL Baso # (Auto) 0.0 (0.0-0.2) X10*3/uL Abs Immat Gran (auto) 0.01 (0.00-0.03) X10*3/uL Absolute Neuts (auto) 5.5 (2.0-8.3) x10*3/uL Absolute Nucleated RBC 0.000 (0.0-0.012) X10*3/uL Nucleated RBC % (auto) 0.0 (0.0-0.2) /100WBC PT 11.2 (11.1-13.3) SEC INR 0.9 (0.9-1.1) APTT 30.3 (26.0-36.4) SEC Sodium 138 (135-145) mmol/L Potassium 3.6 (3.3-5.1) mmol/L Chloride 104 (96-108) mmol/L Carbon Dioxide 22 (22-29) mmol/L Anion Gap 16 (12-20) BUN 16 (9-16) mg/dL Creatinine 0.84 (0.5-1.4) mg/dL Estim Creat Clear Calc 59.0 Estimated GFR > 60 Random Glucose 211 H (60-115) mg/dL Calcium 9.5 (8.4-10.2) mg/dL Total Bilirubin 0.2 (0.0-1.0) mg/dL AST 21 (5-31) U/L ALT 20 (0-31) U/L Alkaline Phosphatase 94 (39-117) U/L Troponin I High Sens < 2.7 (<3.5-17.0) ng/L Total Protein 7.9 (6.5-8.0) g/dL Albumin 3.8 (3.5-5.0) g/dL Independent Interpretation I performed an independent interpretation of an: EKG and Plain X-Ray Interpretation: My interpretation patient's one-view chest x-ray is as follows: No acute disease My independent interpretation patient's 12 EKG done at 04:59 is as follows: Normal sinus rhythm with a rate of 97, normal [place] interval, QRS duration and QTC interval, no ST segment elevation, ST segment depression, no T-wave abnormalities, no PACs no PVCs-this is a normal EKG Radiology Impression Discussion of test interpretation with radiology: I have reviewed the radiologist's reading. Radiologist Impression: XR chest 1V IMPRESSION: Unremarkable examination. Dictated By: Rivera Schaffer MD Prescription Management I considered prescription management with: Pain Medication Chronic Conditions Patient?s care impacted by: Hypertension Discharge Plan Discharge Clinical Impression: Chest pain, HTN (hypertension) Patient Disposition: Home, Self-Care Instructions: Chest Wall Pain (ED) Additional Instructions: Your blood work was normal. Your chest x-ray was normal as well. EKG was unremarkable. Your chest pain is consistent with inflammation of the muscles and joints of your chest. Take Tylenol (acetaminophen) 500 mg, 2 pills every 4-6 hours as needed for pain. For pain not relieved by ibuprofen or Tylenol take morphine 15 mg pills, 1 pill every 4 hours as needed for pain. This medication will make you sleepy, do not drive or work while taking this medication. Morphine is a narcotic medication and can be addicting. If you are concerned about addiction you can ask the pharmacist for less pills or do not get this prescription filled. Follow-up with your doctor in 2 days. Please return to the emergency department if your symptoms get worse or if you develop any symptoms that are concerning to you. Prescriptions: New morphine 15 mg tablet 15 mg PO Q6H PRN (Reason: pain) Qty: 10 0RF Rx Instructions: The patient may ask for partial fill; Partial Fill upon patient request. No Action diclofenac sodium [Arthritis Pain (diclofenac)] 1 % gel 2 g topical QID 14 Days Qty: 100 0RF Rx Instructions: apply to single elbow, wrist or hand; for hand includes palm/fingers/back of hand cholecalciferol (vitamin D3) 50 mcg (2,000 unit) tablet 50 mcg PO DAILY Qty: 90 3RF (DME) pen needle, diabetic [Pen Needle] 31 gauge x 1/4 needle See Rx Instructions .Route Qty: 100 3RF Rx Instructions: As directed daily (DME) OneTouch Ultra Test Strip See Rx Instructions .Route Qty: 100 12RF Rx Instructions: As directed - to test blood sugar TID gabapentin 400 mg capsule 400 mg PO BID Qty: 90 1RF nifedipine 30 mg tablet extended release 24hr 30 mg PO DAILY 30 Days Qty: 30 3RF Protocol: Hold for SBP< HOLD for SBP < : 90 atorvastatin 80 mg tablet 80 mg PO BEDTIME Qty: 30 3RF clopidogrel [Plavix] 75 mg tablet 75 mg PO DAILY 30 Days Qty: 30 3RF Trulicity 1.5 mg/0.5 mL pen injector 1.5 mg subcut QWEEK Qty: 2 3RF insulin glargine [Lantus Solostar U-100 Insulin] 100 unit/mL (3 mL) insulin pen 20 unit subcut BEDTIME Qty: 3 1RF aspirin 81 mg tablet,chewable 81 mg PO DAILY Qty: 30 3RF glimepiride 4 mg tablet 4 mg PO QAM Qty: 30 1RF acetaminophen [Tylenol] 325 mg capsule 650 mg PO Q6H PRN (Reason: pain) Qty: 45 0RF lidocaine [Lidoderm] 5 % adhesive patch,medicated 1 patch topical DAILY Qty: 15 0RF Rx Instructions: leave on most painful area for up to 12 hrs fluoxetine 20 mg capsule 20 mg PO DAILY zolpidem 10 mg tablet 10 mg PO BEDTIME lorazepam 0.5 mg tablet 0.5 mg PO DAILY PRN (Reason: Anxiety) (DME) BLOOD PRESSURE MONITOR See Rx Instructions .Route .MEDSUPPLY Qty: 1 0RF Rx Instructions: As directed (DME) blood-glucose meter [[employer] Ultra2 Meter] Kit See Rx Instructions .Route Qty: 1 0RF Rx Instructions: As directed- To test blood sugar TID (DME) lancets [OneTouch UltraSoft Lancets] Misc See Rx Instructions .Route Qty: 200 12RF Rx Instructions: As directed- To test blood sugar TID losartan 50 mg tablet 50 mg PO BEDTIME Qty: 30 3RF miconazole nitrate [Miconazole-7] 100 mg suppository 100 mg vaginal BEDTIME 7 Days Qty: 7 0RF amoxicillin 500 mg tablet 500 mg PO Q8H 3 Days Qty: 9 0RF pioglitazone [Actos] 15 mg tablet 15 mg PO DAILY Qty: 30 4RF
[2023-04-01 06:01] LABS: MANUAL DIFF FLAG NO
[2023-04-01 06:03] LABS: Basophils Percent Auto 0.4 % (0-2); Eosinophils Absolute Auto 0.2 X10*3/uL (0.0-0.4); Eosinophils Percent Auto 1.7 % (0-4); Hematocrit 36.3 % (37.0-47.0); Hemoglobin 12.3 g/dl (12.0-16.0); Imm Gran Abs Auto 0.01 X10*3/uL (0.00-0.03); Imm Gran Pct Auto 0.1 % (0.0-0.4); Lymphocytes Absolute Auto 3.4 X10*3/uL (1.2-4.9); Lymphocytes Percent Auto 35.2 % (20-40); Mean Corpuscular HGB Conc 33.9 g/dl (31.0-35.0); Mean Corpuscular Hemoglobin 27.1 pg (27.0-33.0); Mean Platelet Volume 9.7 fL (9.4-12.3); Monocytes Absolute Auto 0.6 X10*3/uL (0.1-1.2); Monocytes Percent Auto 6.1 % (2-11); Neutrophils Absolute Auto 5.5 x10*3/uL (2.0-8.3); Neutrophils Percent Auto 56.5 % (45-73); Platelet Count 360 X10*3/uL (160-400); Red Blood Count 4.54 X10*6/uL (4.20-5.50); Red Cell Distribution Width 12.2 % (11.0-16.0); White Blood Count 9.8 X10*3/uL (4.8-10.8)
[2023-04-01] MEDS: Losartan Potassium 25 MG TABLET PO (06:03)
[2023-04-01] MEDS: Morphine Sulfate 4 MG/ML CARTRIDGE IVPUSH (06:03)
[2023-04-01] MEDS: ondansetron HCL 4 MG/2 ML VIAL IVPUSH (06:03)
[2023-04-01 06:05] VITALS: BP 180/89; PULSE 82; RESP 12
[2023-04-01 06:08] LABS: INTERNATIONAL NORM RATIO 0.9 (0.9-1.1); Prothrombin Time 11.2 SEC (11.1-13.3)
--- NOTE | 2023-04-01 06:11 | PC.NURSE ---
this rn assumed care of pt from waiting room @ 0530. pt placed on monitoring engineer dr hurley to bedside for assessment. iv line placed labs obtained and pt medicated awaiting nifedipine 30mg to be acquired by nursing transmission maintenance supervisor as med is not available in ED
[2023-04-01 06:12] LABS: Partial Thromboplastin Time 30.3 SEC (26.0-36.4)
[2023-04-01 06:19] LABS: Alanine Aminotransferase 20 U/L (0-31); Albumin Level 3.8 g/dL (3.5-5.0); Alkaline Phosphatase 94 U/L (39-117); Anion Gap 16 (12-20); Aspartate Amino Transferase 21 U/L (5-31); Bilirubin Total 0.2 mg/dL (0.0-1.0); Blood Urea Nitrogen 16 mg/dL (9-16); Calcium 9.5 mg/dL (8.4-10.2); Carbon Dioxide 22 mmol/L (22-29); Chloride 104 mmol/L (96-108); Estimated Glomerular Filt Rate > 60; Glucose Random 211 mg/dL (60-115); Potassium 3.6 mmol/L (3.3-5.1); Sodium 138 mmol/L (135-145); Total Protein 7.9 g/dL (6.5-8.0)
[2023-04-01 06:32] LABS: Troponin-I High Sensitivity < 2.7 ng/L (<3.5-17.0)
[2023-04-01] MEDS: NIFEdipine ER 30 MG TAB.ER.24 PO (07:10)
[2023-04-01 08:18] VITALS: BP 157/77; PULSE 77; RESP 16; O2SAT 96
== END 2023-04-01 08:19 | disposition home or self-care (01) ==
PROVIDERS: Emergency Provider Emergency Medicine Emergency Medical Services; PCP Internal Medicine
DX: R07.9 Chest pain, unspecified (principal); I10 Essential (primary) hypertension; E11.9 Type 2 diabetes mellitus without complications; Z86.73 Personal history of transient ischemic attack (TIA), and cerebral infarction without residual deficits
CPT/HCPCS: 36415; 71045; 80053; 84484; 85025; 85610; 85730; 93005; 96374; 96375; 99284; J2270; J2405

== ENCOUNTER → 2023-04-01 04:59 | Outpatient (BNV) | payer OTHER, SELFPAY | PROVIDERS: Emergency Provider Emergency Medicine Emergency Medical Services; PCP Internal Medicine; Visit Provider Internal Medicine Cardiovascular Disease | DX: R94.31 Abnormal electrocardiogram [ECG] [EKG] (principal) | CPT/HCPCS: 93010 ==

== ENCOUNTER 2023-05-16 12:19 | Outpatient (AMB) | payer OTHER, SELFPAY ==
[2023-05-16 12:32] VITALS: BP 162/90; PULSE 92; O2SAT 99; BMI 31.4
--- NOTE | 2023-05-16 12:32 | MHC.PC.OV ---
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 Accompanied by: Self / Same As Patient Allergies ibuprofen [From Motrin] Allergy (Mild, Verified 05/16/23 12:50) STOMACH UPSET oxycodone [From Percocet] Allergy (Mild, Verified 05/16/23 12:50) ITCHING lactose [LACTOSE] Allergy (Unknown, Verified 05/16/23 12:50) ABD PAIN metformin Adverse Reaction (Unknown, Verified 05/16/23 12:50) nausea, somnolence amlodipine Adverse Reaction (Verified 05/16/23 12:50) Swelling Medication List - Last Reconciled 05/16/23 by Michael Peoples MD acetaminophen (Tylenol) 650 mg (2 x 325 mg) PO Q6H PRN aspirin 81 mg PO DAILY atorvastatin 80 mg PO BEDTIME [BLOOD PRESSURE MONITOR As directed] blood sugar diagnostic (MarginPoint Ultra Test strips) As directed - to test blood sugar TID blood-glucose meter (MarginPoint Ultra2 Meter kit) As directed- To test blood sugar TID cholecalciferol (vitamin D3) 50 mcg PO DAILY clopidogrel (Plavix) 75 mg PO DAILY 30 days diclofenac sodium 1% (Arthritis Pain (diclofenac)) 2 grams topical QID 14 days dulaglutide (Trulicity) 1.5 mg (0.5 mL) subcut QWEEK fluoxetine 20 mg PO DAILY gabapentin 400 mg PO BID glimepiride 4 mg PO QAM insulin glargine (Lantus Solostar U-100 Insulin) 20 units (0.2 mL) subcut BEDTIME lancets (Pl[employer] J[employer]uch UltraSoft Lancets) As directed- To test blood sugar TID lidocaine 5% (Lidoderm) 1 patch topical DAILY lorazepam 0.5 mg PO DAILY PRN losartan 50 mg PO BEDTIME miconazole nitrate (Miconazole-7) 100 mg vaginal BEDTIME 7 days nifedipine ER 30 mg See Protocol PO DAILY 30 days pen needle, diabetic (Pen Needle) As directed daily pioglitazone (Actos) 15 mg PO DAILY zolpidem 10 mg PO BEDTIME Tobacco use date assessed: 05/16/23 Dental Screening Dental Screen Date: 05/16/23 Did you have a dental visit in the last 12 months?: Yes Did you have a dental problem in the last 6 months where you did not have access to dental care?: No Was dental information given to patient?: Patient has dentist HPI DM, HLD, HTN HPI Details Patient comes in today for her follow up visit - I have not seen her since June 2022 States that she currently feels okay She denies any headaches or dizziness Denies any chest pains, no SOB No nausea/vomiting, no abdominal pain No change in bowel habits noted Recalls going to the ER last month for chest pains and had labs and EKG done - was advised that she has costochondritis and all of her tests came back okay Had not had any labs done since [facility] Medical History Uncontrolled type 2 diabetes mellitus with hyperglycemia, with long-term current use of insulin Intracranial vascular stenosis Diabetes HTN (hypertension) CVA (cerebral vascular accident) Right thalamic stroke Obesity (BMI 30-39.9) Depression Anxiety Insomnia GERD without esophagitis Anemia, iron deficiency Lumbar degenerative disc disease Pure hypercholesterolemia Benign essential hypertension Diabetes mellitus Sciatic pain Fibromyalgia Surgical History History of surgery History of left salpingo-oophorectomy H/O bilateral breast reduction surgery History of carpal tunnel release History of appendectomy History of section History of hysterectomy Family History Father Suicide Epilepsy Mother Poor high blood pressure control Diabetes Hypertension Daughter Spina bifida Brother Stroke Other Mental health problem Social History Household Members: Significant Other Housing: Apartment Do you presently have visiting nurse or other home services: No Alcohol intake: never Patient Tobacco Use Status: Never used Tobacco e-Cigarette/Vaping Use: Never Used Second Hand Smoke Exposure: Yes service: No Current occupational status: disabled Cognitive needs: Yes (cane) Hearing needs: No Vision needs: Yes (glasses) Questionnaire PHQ-9 Over the last 2 weeks, how often have you been bothered by any of the following problems? 1. Little interest or pleasure in doing things: not at all 2. Feeling down, depressed, or hopeless: not at all 3. Trouble falling or staying asleep, or sleeping too much: not at all 4. Feeling tired or having little energy: not at all 5. Poor appetite or overeating: not at all 6. Feeling bad about yourself - or that you are a failure or have let yourself or your family down: not at all 7. Trouble concentrating on things, such as reading the newspaper or watching television: not at all 8. Moving or speaking so slowly that other people could have noticed. Or the opposite - being so fidgety or restless that you have been moving around a lot more than usual: not at all 9. Thoughts that you would be better off or of hurting yourself in some way: not at all Total score: 0 Depression Screening Interpretation: Negative Depression Screening Done: Yes 20107 - PHQ-9 Billing: Yes Source: Developed by Drs. Casper Tamayo, Ayah Gaviria, Malik Brady and colleagues, with an educational óscar from [employer]. Thrive Questionnaire Date Thrive assessed: 05/16/23 I am a: Patient What is your living situation today?: I have a steady place to live Within the past 12 months, did the food you bought not last and you didn't have the money to get more?: Never true Within the past 12 months, did you worry whether your food would run out before you got money to buy more?: Never true Do you have trouble paying for medicines?: No Do you have trouble getting transportation to medical appointments?: No Do you have trouble paying your heating and electricity bill?: No Do you have trouble taking care of your child, family member or friend?: No Do you have trouble with day-to-day activities such as bathing, preparing meals, shopping, managing finances, etc.?: No Are you currently unemployed and looking for a job?: No Are you interested in more education?: No Please select the resources that you would like help with: None Currently or been in a relationship where the following occur: no concerns reported THRIVE Score: 0 AUDIT C Alcohol Use Questionnaire (AUDIT-C) 1. How often do you have a drink containing alcohol?: Never 3. How often do you have six or more drinks on one occasion?: Never Total Score: 0 Score Reviewed/Action Taken: Yes SAUL-7 AMB Questionnaire SAUL-7 Date SAUL - 7 assessed: 05/16/23 Feeling nervous, anxious, or on edge: 0 = Not at all Not being able to stop or control worryin = Not at all Worrying too much about different things: 0 = Not at all Trouble relaxin = Not at all Being so restless that it is hard to sit still: 0 = Not at all Becoming easily annoyed or irritable: 0 = Not at all Feeling afraid as if something awful might happen: 0 = Not at all Total SAUL-7 score (0-4 normal; 5-9 mild; 10-14 moderate; 15-21 severe): 0 Source: Developed by Drs. Casper Tamayo, Ayah Gaviria, Malik Brady and colleagues, with an educational óscar from [employer]. Review of Systems Const Denies chills, Reports fatigue, Denies fever(s) and Denies headache(s) ENT Denies dysphagia, Denies dizziness, Denies otalgia, Denies headache(s), Denies neck pain, Denies odynophagia and Denies sore throat Card Denies chest pain, Denies palpitations and Denies dyspnea Resp Denies chest congestion, Denies cough, Denies dyspnea and Denies wheezing GI Denies abdominal pain, Denies constipation, Denies dysphagia, Denies heartburn, Denies diarrhea, Denies nausea, Denies odynophagia and Denies vomiting Reports nocturia, Denies dysuria and Denies urinary urgency Musc Reports back pain (over the lower back -chronic) and Denies neck pain Skin/Breast Denies rash Neuro Denies dizziness and Denies headache(s) Endo Reports fatigue and Denies palpitations Aller/Immun Denies wheezing Physical exam (Primary Care) Vital Signs: Last Vital Signs Pulse 92 05/16/23 12:32 BP 162/90 H 05/16/23 12:32 Pulse Ox 99 05/16/23 12:32 Oxygen Delivery Method Room Air 05/16/23 12:32 BMI result Body Mass Index 31.4 Tobacco/Smoking Status: Tobacco use Status Tobacco use date assessed 05/16/23 05/16/23 12:35 Patient Tobacco Use Status Never used Tobacco 05/16/23 12:35 e-Cigarette/Vaping Use Never Used 05/16/23 12:35 PHQ-9: PHQ-9 Score PHQ-9: Total score 0 05/16/23 12:47 Depression Screening Interpretation: Negative Thrive Assessment: Date of Thrive Assessment Date Thrive assessed 05/16/23 05/16/23 12:35 Currently or been in a relationship where the following occur: no concerns reported Const General: no acute distress and alert HENMT Ears: TM's normal bilaterally and EAC's normal Throat: Yes posterior oropharynx normal and Yes tonsils normal (no TP congestion noted) Neck Neck: Yes no lymphadenopathy and Yes supple Thyroid: Thyroid normal Resp Auscultation: clear to auscultation bilaterally, no rales and no wheezes Cardio Rate: regular rate Rhythm: regular rhythm Heart sounds: no murmurs GI Palpation (GI): Soft to palpation and nontender Auscultation: normal bowel sounds General: Yes no CVA tenderness Back/Spine/Pelvis Back: no CVA tenderness Thoracic/Lumbar Spine: lumbar spinal tenderness (mild) Skin Rashes: no rashes Extrem General: Yes no clubbing, cyanosis or edema Results AMB Hemoglobin A1c AMB Hemoglobin A1c 10.0 % Last Edit by Aris Huitron on 05/16/23 12:47 Results Reviewed Results Reviewed: Laboratory Last Values Hgb A1c (Clinic) 10.0 % (4.0-6.0) H 05/16/23 12:36 Assessment and Plan Assessment & Plan (1) Diabetes mellitus: Code(s): E11.9 - Type 2 diabetes mellitus without complications Qualifiers: Diabetes mellitus type: type 2 Diabetes mellitus fci insulin use: without termite control technician use Diabetes mellitus complication status: with hyperglycemia Qualified Code(s): E11.65 - Type 2 diabetes mellitus with hyperglycemia Plan: In-office HgbA1c done today is at 10.0% (HgbA1c was at 12.0% back on 02/13/23) - goal is at least <7.0% Reinforced diabetic diet She is currently still on Glimepiride 4 mg QD, Lantus 20 units QD, Trulicity 1.5 mg SQ once a week and Pioglitazone 15 mg QD Used to see endocrinology but states that she has not seen them in a while - will refer back to Endocrinology For now, will have patient increase her Trulicity to 3 mg once a week and continue all of her other Rx as before (2) Benign essential hypertension: Code(s): I10 - Essential (primary) hypertension Plan: Reinforced low-sodium diet - goal is systolic BP of 120 to 130 mm or less Continue Losartan 50 mg Q PM and Nifedipine ER 30 mg Q AM (3) Pure hypercholesterolemia: Code(s): E78.00 - Pure hypercholesterolemia, unspecified Plan: Reinforced low-cholesterol diet Continue Atorvastatin 80 mg QD Will recheck her labs and fasting lipids in 3 months for follow up (4) Right thalamic stroke: Code(s): I63.9 - Cerebral infarction, unspecified Plan: MRI of the brain in November 2020 showed (+) acute lacunar infarct involving the right thalamus Patient does not appear to have any significant residual neurologic or physical deficits from her CVA Continue Aspirin 81 mg QD and Clopidogrel 75 mg QD and emphasized again the importance of better control of her blood pressure, blood sugar and cholesterol to prevent recurrence of her CVA Follow-up with neurology as scheduled or as needed - states that she was told at her recent neurology follow up that she does not need to see them regularly from now on and only as needed (5) Low back pain: Code(s): M54.50 - Low back pain, unspecified Qualifiers: Chronicity: unspecified Back pain laterality: unspecified Sciatica presence: unspecified whether sciatica present Qualified Code(s): M54.50 - Low back pain, unspecified Plan: Continue Gabapentin 400 mg BID Lumbar spine x-rays done in July 2021 revealed mild multilevel degenerative disc disease with lower lumbar spine facet arthropathy, unchanged. Stable, chronic grade 1 anterolisthesis of L5 on S1. No acute osseous abnormality. (6) Insomnia: Code(s): G47.00 - Insomnia, unspecified Qualifiers: Insomnia type: unspecified Qualified Code(s): G47.00 - Insomnia, unspecified Plan: Sleep hygiene reinforced Continue Zolpidem 10 mg once a day at bedtime as needed (7) Anxiety: Code(s): F41.9 - Anxiety disorder, unspecified Plan: Continue Lorazepam 0.5 mg 1 tablet once a day as needed (8) Depression: Code(s): F32.9 - Major depressive disorder, single episode, unspecified Qualifiers: Depression Type: major depressive disorder Major depression recurrence: recurrent Active/Remission status: currently active Major depression episode severity: unspecified Qualified Code(s): F33.9 - Major depressive disorder, recurrent, unspecified Plan: Continue Fluoxetine 20 mg once a day in the morning Follow-up with Psychiatry as scheduled (9) Obesity (BMI 30-39.9): Code(s): E66.9 - Obesity, unspecified Plan: Reinforced diet/exercise as tolerated/lose weight Plan Follow up in 3 months Orders: Orders Complete Blood Count Auto Diff 3 Months D64.9 - Anemia, unspecified Lipid Panel 3 Months E78.00 - Pure hypercholesterolemia, unspecified Comprehensive Walker. Panel Fast 3 Months E78.00 - Pure hypercholesterolemia, unspecified TSH reflex Free T4 3 Months E78.00 - Pure hypercholesterolemia, unspecified UA CC w/rflx Micro + Cult 3 Months R30.0 - Dysuria Vitamin B12 and Folate 3 Months E53.8 - Deficiency of other specified B group vitamins AMB Hemoglobin A1c Today Z13.9 - Encounter for screening, unspecified Vitamin D 25-OH Total 3 Months E55.9 - Vitamin D deficiency, unspecified Microalbumin, Random (w Creat) 3 Months E11.9 - Type 2 diabetes mellitus without complications Hemoglobin A1c 3 Months E11.9 - Type 2 diabetes mellitus without complications Referrals Endocrinology Referral E11.65 - Type 2 diabetes mellitus with hyperglycemia, Z79.4 - long term care administrator (current) use of insulin Medications: Changed From dulaglutide (Trulicity) 1.5 mg (0.5 mL) subcut QWEEK 2 mL 3RF To dulaglutide 1.5 mg (0.25 mL) subcut QWEEK 1 mL 3RF 4 weeks Coding Level of Care Code Est Pt Level 4 (35349) Diagnoses Type 2 diabetes mellitus with hyperglycemia, without long-term current use of insulin E11.65 Diabetes mellitus type: type 2 Diabetes mellitus termite control technician insulin use: without termite control technician use Diabetes mellitus complication status: with hyperglycemia Benign essential hypertension I10 Pure hypercholesterolemia E78.00 Right thalamic stroke I63.9 Low back pain, unspecified back pain laterality, unspecified chronicity, unspecified whether sciatica present M54.50 Chronicity: unspecified Back pain laterality: unspecified Sciatica presence: unspecified whether sciatica present Insomnia, unspecified type G47.00 Insomnia type: unspecified Anxiety F41.9 Episode of recurrent major depressive disorder, unspecified depression episode severity F33.9 Depression Type: major depressive disorder Major depression recurrence: recurrent Active/Remission status: currently active Major depression episode severity: unspecified Obesity (BMI 30-39.9) E66.9
== END 2023-05-16 13:27 | disposition home or self-care (01) ==
PROVIDERS: PCP Internal Medicine; Visit Provider Internal Medicine
DX: E11.65 Type 2 diabetes mellitus with hyperglycemia (principal); F33.9 Major depressive disorder, recurrent, unspecified; Z86.73 Personal history of transient ischemic attack (TIA), and cerebral infarction without residual deficits; I10 Essential (primary) hypertension; E78.00 Pure hypercholesterolemia, unspecified; M54.50 Low back pain, unspecified; G47.00 Insomnia, unspecified; F41.9 Anxiety disorder, unspecified; E66.9 Obesity, unspecified
CPT/HCPCS: 83036; 99214

== ENCOUNTER 2023-05-28 15:59 | Outpatient (AMB) | payer OTHER, SELFPAY ==
--- NOTE | 2023-05-28 16:10 | MHC.PC.OV ---
Vital Signs 05/28/23 16:30 Height 4 ft 11 in Weight 157 lb 2 oz BMI 31.7 BP 160/86 H Blood Pressure Location Lt brachial Position Sitting Pulse 85 Pulse Source Pulse Oximeter Pulse Oximetry (%) 97 Oxygen Delivery Method Room Air Intake Visit Reasons: Dr. JOHNSON/LBP, stomach pain, nausea & dizziness X 1wk Intake Note: Dr. Peoples's patient is presenting with lower back pain, stomach pain, nausea, and dizziness persisting for one week. Phone Circuit Operator Required: No Accompanied by: HOG CONFINEMENT SYSTEM MANAGER-Lymarie Allergies ibuprofen [From Motrin] Allergy (Mild, Verified 05/28/23 17:06) STOMACH UPSET oxycodone [From Percocet] Allergy (Mild, Verified 05/28/23 17:06) ITCHING lactose [LACTOSE] Allergy (Unknown, Verified 05/28/23 17:06) ABD PAIN metformin Adverse Reaction (Unknown, Verified 05/28/23 17:06) nausea, somnolence amlodipine Adverse Reaction (Verified 05/28/23 17:06) Swelling Medication List - Last Reconciled 05/28/23 by Javier Guzmán PA-C acetaminophen (Tylenol) 650 mg (2 x 325 mg) PO Q6H PRN aspirin 81 mg PO DAILY atorvastatin 80 mg PO BEDTIME [BLOOD PRESSURE MONITOR As directed] blood sugar diagnostic (Datal[employer]uch Ultra Test strips) As directed - to test blood sugar TID blood-glucose meter (Datalotuch Ultra2 Meter kit) As directed- To test blood sugar TID cholecalciferol (vitamin D3) 50 mcg PO DAILY clopidogrel (Plavix) 75 mg PO DAILY 30 days diclofenac sodium 1% (Arthritis Pain (diclofenac)) 2 grams topical QID 14 days dulaglutide 3 mg (0.5 mL) subcut QWEEK 4 weeks fluoxetine 20 mg PO DAILY gabapentin 400 mg PO BID glimepiride 4 mg PO QAM insulin glargine (Lantus Solostar U-100 Insulin) 20 units (0.2 mL) subcut BEDTIME lancets (Datalotuch UltraSoft Lancets) As directed- To test blood sugar TID lidocaine 5% (Lidoderm) 1 patch topical DAILY lorazepam 0.5 mg PO DAILY PRN losartan 50 mg PO BEDTIME miconazole nitrate (Miconazole-7) 100 mg vaginal BEDTIME 7 days nifedipine ER 30 mg See Protocol PO DAILY 30 days pen needle, diabetic (Pen Needle) As directed daily pioglitazone (Actos) 15 mg PO DAILY zolpidem 10 mg PO BEDTIME Tobacco use date assessed: 05/16/[address] JOHNSON/JENNIFER, stomach pain, nausea & dizziness X 1wk HPI Details Patient is a 62-year-old female here today complaining of epigastric pain , dizziness, gas buildup in the epigastrium and burping, nausea over the last week. She reports her symptoms started after having a slice of combination pizza. She feels that there is a pressure in her epigastrium. She did have 1 episode of diarrhea though now bowel movements are normal. No episodes of emesis. She has not tried any antacids. [facility] Medical History Uncontrolled type 2 diabetes mellitus with hyperglycemia, with long-term current use of insulin Intracranial vascular stenosis Diabetes HTN (hypertension) CVA (cerebral vascular accident) Right thalamic stroke Obesity (BMI 30-39.9) Depression Anxiety Insomnia GERD without esophagitis Anemia, iron deficiency Lumbar degenerative disc disease Pure hypercholesterolemia Benign essential hypertension Diabetes mellitus Sciatic pain Fibromyalgia Surgical History History of surgery History of left salpingo-oophorectomy H/O bilateral breast reduction surgery History of carpal tunnel release History of appendectomy History of section History of hysterectomy Family History Father Suicide Epilepsy Mother Poor high blood pressure control Diabetes Hypertension Daughter Spina bifida Brother Stroke Other Mental health problem Social History Household Members: Significant Other Housing: Apartment Do you presently have visiting nurse or other home services: No Alcohol intake: never Patient Tobacco Use Status: Never used Tobacco e-Cigarette/Vaping Use: Never Used Second Hand Smoke Exposure: Yes service: No Current occupational status: disabled Cognitive needs: Yes (cane) Hearing needs: No Vision needs: Yes (glasses) Questionnaire Thrive Questionnaire Date Thrive assessed: 05/16/23 SAUL-7 AMB Questionnaire SAUL-7 Date SAUL - 7 assessed: 05/16/23 Source: Developed by Drs. Casper Tamayo, Ayah Gaviria, Malik Brady and colleagues, with an educational óscar from [employer]. Review of Systems Const Denies headache(s) Eyes Denies loss of vision ENT Denies vertigo, Denies dizziness, Denies headache(s) and Denies sore throat Card Denies chest pain, Denies leg edema and Denies lightheadedness Resp Denies cough, Denies hemoptysis and Denies wheezing GI Reports abdominal pain, Denies melena, Denies constipation, Reports GI cramping, Reports dyspepsia, Reports diarrhea and Denies vomiting Denies urinary frequency, Denies dysuria and Denies urinary urgency Musc Denies arthralgias, Denies joint swelling, Denies numbness and Denies tingling Neuro Denies Abnormal speech present, Denies behavioral changes, Denies vertigo, Denies dizziness, Denies headache(s), Denies loss of vision, Denies memory loss, Denies numbness and Denies tingling Psych Denies anxiety, Denies behavioral changes, Denies depression, Denies memory loss and Denies panic attacks Antoine/Lymph Denies easy bleeding and Denies easy bruising Aller/Immun Denies wheezing Physical exam (Primary Care) Vital Signs: Last Vital Signs Pulse 85 05/28/23 16:30 BP 160/86 H 05/28/23 16:30 Pulse Ox 97 05/28/23 16:30 Oxygen Delivery Method Room Air 05/28/23 16:30 BMI result Body Mass Index 31.7 Tobacco/Smoking Status: Tobacco use Status Tobacco use date assessed 05/16/23 05/28/23 16:10 Patient Tobacco Use Status Never used Tobacco 05/28/23 16:10 e-Cigarette/Vaping Use Never Used 05/28/23 16:10 Thrive Assessment: Date of Thrive Assessment Date Thrive assessed 05/16/23 05/28/23 16:10 Const General: healthy appearing, no acute distress, alert and awake Nutritional Appearance: well nourished Orientation/consciousness: oriented to person, oriented to place and oriented to time HENMT Ears: TM's normal bilaterally General nose exam: Normal nasal mucous membranes and turbinates present Eyes Conjunctivae: conjunctivae normal Sclerae: sclerae normal Pupils: Equal, round and reactive pupils present Neck Neck: Yes no lymphadenopathy and Yes no JVD Thyroid: Thyroid normal Carotids: no bruits Resp Effort & Inspection: normal respiratory effort and not tachypneic Auscultation: no crackles, no rales, no rhonchi and no wheezes Cardio Rate: regular rate Rhythm: regular rhythm Heart sounds: no murmurs and normal S1 and S2 GI Palpation (GI): Soft to palpation, Tenderness to palpation present (GI) in the epigastrum, no hepatomegaly and no splenomegaly Auscultation: normal bowel sounds Skin General skin exam: no rashes or lesions noted and dry skin Neuro General: oriented to person, oriented to place and oriented to time Cranial nerves: Yes Equal, round and reactive pupils present Speech: No Abnormal speech present Gait exam (Neuro): Normal gait present Motor exam (neuro): no tremor noted Extrem Right upper extremity: full ROM Left upper extremity: full ROM Right lower extremity: full ROM; no edema Left lower extremity: full ROM; no edema Psych Mental Status: mental status grossly normal Speech and movement: Normal speech and movement present Affect: normal affect Attitude: cooperative Thought process: Normal thought process present Assessment and Plan Assessment & Plan (1) Gastritis: Code(s): K29.70 - Gastritis, unspecified, without bleeding Qualifiers: Chronicity: unspecified Gastritis bleeding: without bleeding Gastritis type: unspecified gastritis Qualified Code(s): K29.70 - Gastritis, unspecified, without bleeding Plan: Patient's signs and symptoms are most consistent with a gastritis. Will supply patient with famotidine 20 mg to use on a daily basis. Advised on keeping diet bland in increasing her free fluids. Likely a self-limiting condition though will send in for nonfasting labs and H pylori stool testing. Orders: Orders Basic Metabolic Panel 05/28/23 K29.70 - Gastritis, unspecified, without bleeding Lipase 05/28/23 K29.70 - Gastritis, unspecified, without bleeding Complete Blood Count no Diff 05/28/23 K29.70 - Gastritis, unspecified, without bleeding H pylori Ag Stool 05/28/23 K29.70 - Gastritis, unspecified, without bleeding Medications: New famotidine 20 mg PO DAILY 14 days 14 tabs 0RF K29.70 - Gastritis, unspecified, without bleeding famotidine 20 mg PO DAILY 14 days 14 tabs 0RF K29.70 - Gastritis, unspecified, without bleeding Coding Level of Care Code Est Pt Level 3 (59279) Diagnoses Gastritis without bleeding, unspecified chronicity, unspecified gastritis type K29.70 Chronicity: unspecified Gastritis bleeding: without bleeding Gastritis type: unspecified gastritis
[2023-05-28 16:30] VITALS: BP 160/86; PULSE 85; O2SAT 97; BMI 31.7
== END 2023-05-28 17:21 | disposition home or self-care (01) ==
PROVIDERS: PCP Internal Medicine; Visit Provider Physician Assistant
DX: K29.70 Gastritis, unspecified, without bleeding (principal)
CPT/HCPCS: 99213

== ENCOUNTER 2023-05-31 12:17 | Outpatient (REF) | payer OTHER, SELFPAY ==
[2023-05-31 13:24] LABS: Hemoglobin 12.6 g/dl (12.0-16.0); Mean Corpuscular HGB Conc 33.2 g/dl (31.0-35.0); Mean Corpuscular Hemoglobin 28.1 pg (27.0-33.0); Mean Corpuscular Volume 84.8 fL (80.0-98.0); Mean Platelet Volume 9.1 fL (9.4-12.3); Platelet Count 472 X10*3/uL (160-400); Red Blood Count 4.48 X10*6/uL (4.20-5.50); Red Cell Distribution Width 13.3 % (11.0-16.0); White Blood Count 11.2 X10*3/uL (4.8-10.8)
[2023-05-31 13:35] LABS: Anion Gap 13 (12-20); Blood Urea Nitrogen 16 mg/dL (9-16); Calcium 9.6 mg/dL (8.4-10.2); Carbon Dioxide 28 mmol/L (22-29); Chloride 104 mmol/L (96-108); Estimated Glomerular Filt Rate 58; Glucose Random 174 mg/dL (60-115); Lipase 44 U/L (8-78); Potassium 4.3 mmol/L (3.3-5.1); Sodium 141 mmol/L (135-145)
== END 2023-05-31 12:18 | disposition home or self-care (01) ==
LOC: HO.LAB 12:17
PROVIDERS: Visit Provider Physician Assistant
DX: K29.70 Gastritis, unspecified, without bleeding (principal)
CPT/HCPCS: 36415; 80048; 83690; 85027

== ENCOUNTER 2023-06-01 10:31 | Outpatient (AMB) | payer OTHER, SELFPAY ==
[2023-06-01 11:07] VITALS: BP 140/100; PULSE 99; TEMP 36.2; O2SAT 98; BMI 31.7
--- NOTE | 2023-06-01 11:07 | MHC.OFFWIV ---
Intake Vital Signs 06/01/23 11:07 Height 4 ft 11 in Weight 157 lb BMI 31.7 BP 140/100 H Blood Pressure Location Lt brachial Position Sitting Pulse 99 Pulse Source Pulse Oximeter Temp 97.1 F Temp Source Temporal Artery Scan Pulse Oximetry (%) 98 Oxygen Delivery Method Room Air Intake Visit Reasons: EST/throat pain ([id number]) Intake Note: pt is here today for throat pain started yesterday Patient Tobacco Use Status: Never used Tobacco Allergies ibuprofen [From Motrin] Allergy (Mild, Verified 06/01/23 11:09) STOMACH UPSET oxycodone [From Percocet] Allergy (Mild, Verified 06/01/23 11:09) ITCHING lactose [LACTOSE] Allergy (Unknown, Verified 06/01/23 11:09) ABD PAIN metformin Adverse Reaction (Unknown, Verified 06/01/23 11:09) nausea, somnolence amlodipine Adverse Reaction (Verified 06/01/23 11:09) Swelling Do you need a note to return to daycare/school/sports/work: No HPI HPI Comments History of Present Illness Details This is a 62-year-old female who presented to the walk-in clinic today complaining of sore throat and right-sided throat swelling x1 day. Patient states she woke up yesterday with a sore throat, which progressively worsened throughout the day. She then started to develop right-sided throat and neck swelling. This morning, she noticed some white patches in the back of her throat. She reports odynophagia but denies dysphagia. She denies any fevers or chills. [facility] Medical History Uncontrolled type 2 diabetes mellitus with hyperglycemia, with long-term current use of insulin Intracranial vascular stenosis Diabetes HTN (hypertension) CVA (cerebral vascular accident) Right thalamic stroke Obesity (BMI 30-39.9) Depression Anxiety Insomnia GERD without esophagitis Anemia, iron deficiency Lumbar degenerative disc disease Pure hypercholesterolemia Benign essential hypertension Diabetes mellitus Sciatic pain Fibromyalgia Surgical History History of surgery History of left salpingo-oophorectomy H/O bilateral breast reduction surgery History of carpal tunnel release History of appendectomy History of section History of hysterectomy Family History Father Suicide Epilepsy Mother Poor high blood pressure control Diabetes Hypertension Daughter Spina bifida Brother Stroke Other Mental health problem Social History Household Members: Significant Other Housing: Apartment Do you presently have visiting nurse or other home services: No Alcohol intake: never Patient Tobacco Use Status: Never used Tobacco e-Cigarette/Vaping Use: Never Used Second Hand Smoke Exposure: Yes service: No Current occupational status: disabled Cognitive needs: Yes (cane) Hearing needs: No Vision needs: Yes (glasses) Review of Systems Const All systems reviewed & are unremarkable except as noted in HPI and below Reports no additional complaints Eyes Reports no additional complaints ENT Reports no additional complaints Card Reports no additional complaints Resp Reports no additional complaints GI Reports no additional complaints Reports no additional complaints Musc Reports no additional complaints Skin/Breast Reports system reviewed and no additional complaints, except as documented Neuro Reports no additional complaints Psych Reports no additional complaints Endo Reports no additional complaints Antoine/Lymph Reports no additional complaints Aller/Immun Reports no additional complaints Physical Exam Vital Signs: Last Vital Signs Temp 97.1 F 06/01/23 11:07 Pulse 99 06/01/23 11:07 BP 140/100 H 06/01/23 11:07 Pulse Ox 98 06/01/23 11:07 Oxygen Delivery Method Room Air 06/01/23 11:07 BMI result Body Mass Index 31.7 Const Other: Vital signs reviewed. Constitutional: Non-toxic appearing. No acute distress. Well-developed and well-nourished. HEENT: Normocephalic and atraumatic. There is a small patchy white exudate on her right tonsil with posterior pharyngeal erythema. No evidence of peritonsillar abscess or mass. No unilateral neck swelling. Skin: Warm and dry. No rashes or lesions noted. Neck: Full and painless range of motion. Boggy right-sided cervical lymphadenopathy. Cardio: Regular rate and rhythm. No murmurs, gallops, or rubs. No lower extremity edema. No JVD. Pulmonary: No respiratory distress. No accessory muscle usage. Clear to auscultation bilaterally without wheezing, crackles, or rhonchi. Gastrointestinal: Soft, nontender, and nondistended in all 4 quadrants. Musculoskeletal: Normal range of motion in joints throughout the body. No deformity or other signs of injury. Neuro: Alert and oriented x4. Cranial nerves 2-12 grossly intact. No focal deficits appreciated. Psych: Normal mood and affect. Assessment & Plan Assessment & Plan (1) Acute pharyngitis: Code(s): J02.9 - Acute pharyngitis, unspecified Qualifiers: Pharyngitis/tonsillitis etiology: unspecified etiology Qualified Code(s): J02.9 - Acute pharyngitis, unspecified Plan: This is a 62-year-old female who presented to the walk-in clinic complaining of sore throat, right-sided throat swelling, and white patches to the back of her throat. Patient's rapid strep test was negative; however, given white exudates and cervical lymphadenopathy, there is concern for possible streptococcal pharyngitis. There is no evidence of peritonsillar abscess or peritonsillar cellulitis. Patient's airway is patent without stridor. Patient given a prescription for amoxicillin. Recommended symptomatic management including Advil/Tylenol for pain and fever, [id number]-hrd-[id number] benzocaine/menthol throat lozenges, saltwater gargles, increase fluids. Patient advised to proceed directly to the emergency room if she were to develop stridor, difficulty breathing, worsening throat swelling, dysphagia, or fever/chills. Medications: New amoxicillin 500 mg PO BID 14 caps 0RF Coding Level of Care Code Est Pt Level 3 (02486) Diagnoses Acute pharyngitis, unspecified etiology J02.9 Pharyngitis/tonsillitis etiology: unspecified etiology
== END 2023-06-01 11:57 | disposition home or self-care (01) ==
PROVIDERS: PCP Internal Medicine; Visit Provider Physician Assistant Medical
DX: J02.9 Acute pharyngitis, unspecified (principal)
CPT/HCPCS: 87880; 99213

== ENCOUNTER 2023-06-08 10:37 | Emergency (ER) | payer OTHER, SELFPAY ==
[2023-06-08 10:42] VITALS: BP 166/79; PULSE 88; RESP 19; TEMP 36.6; O2SAT 98; BMI 31.7
--- NOTE | 2023-06-08 11:18 | ED_ITS ---
HPI - Dental/Oral General Chief complaint: Dental/Oral Stated complaint: Dental Abscess Time Seen by Provider: 06/08/23 11:18 Source: patient Mode of arrival: ambulatory Limitations: no limitations History of Present Illness HPI Narrative: 62-year-old female with pmhx significant for T2DM, HTN, CVA, depression, anxiety GERD, anemia, fibromyalgia presents to the ED today for evaluation of dental pain and abscess x5 days. Admits to having an issue with her bottom right molar. A few days ago, she started noticing swelling around the tooth. No drainage. States she has not been evaluated by her dentist as I do not have a car . She was placed amoxicillin 5 days ago after being evaluated at the walk-in clinic which she has been taking as prescribed without resolution of symptoms. Denies fevers, chills, sore throat, difficulty swallowing or controlling her secretions. Related Data Home Medications Medication Instructions Recorded Confirmed fluoxetine 20 mg capsule 20 mg PO DAILY 11/12/20 05/28/23 lorazepam 0.5 mg tablet 0.5 mg PO DAILY PRN Anxiety 11/12/20 05/28/23 zolpidem 10 mg tablet 10 mg PO BEDTIME 11/12/20 05/28/23 Previous Rx's Medication Instructions Recorded BLOOD PRESSURE MONITOR #1 ea 11/26/20 diclofenac sodium 1 % topical gel 2 g topical QID 14 days #100 grams 07/26/21 (Arthritis Pain (diclofenac)) blood-glucose meter (OneTouch #1 ea 10/19/21 Ultra2 Meter kit) pen needle, diabetic 31 gauge x #100 ea 01/31/2204/19 (Pen Needle) lancets (OneTouch UltraSoft #200 ea 06/19/22 Lancets) acetaminophen 325 mg capsule 650 mg (2 x 325 mg) PO Q6H PRN 11/07/22 (Tylenol) pain #45 caps losartan 50 mg tablet 50 mg PO BEDTIME #30 tabs 02/13/23 miconazole nitrate 100 mg vaginal 100 mg vaginal BEDTIME 7 days #7 ea 02/13/23 suppository (Miconazole-7) pioglitazone 15 mg tablet (Actos) 15 mg PO DAILY #30 tabs 02/13/23 insulin glargine 100 unit/mL (3 20 unit (0.2 mL) subcut BEDTIME #3 03/06/23 mL) subcutaneous pen (Lantus mL Solostar U-100 Insulin) aspirin 81 mg chewable tablet 81 mg PO DAILY #30 tabs 03/27/23 blood sugar diagnostic (OneTouch #100 ea 04/04/23 Ultra Test strips) cholecalciferol (vitamin D3) 50 50 mcg PO DAILY #90 tabs 04/04/23 mcg (2,000 unit) tablet gabapentin 400 mg capsule 400 mg PO BID #90 caps 04/04/23 nifedipine 30 mg tablet,extended 30 mg PO DAILY 30 days #30 tabs 04/25/23 release 24 hr dulaglutide 3 mg/0.5 mL 3 mg (0.5 mL) subcut QWEEK 4 weeks 05/18/23 subcutaneous pen injector #2 mL atorvastatin 80 mg tablet 80 mg PO BEDTIME #30 tabs 05/24/23 clopidogrel 75 mg tablet (Plavix) 75 mg PO DAILY 30 days #30 tabs 05/24/23 glimepiride 4 mg tablet 4 mg PO QAM #30 tabs 05/24/23 famotidine 20 mg tablet 20 mg PO DAILY 14 days #14 tabs 05/28/23 amoxicillin 500 mg capsule 500 mg PO BID #14 caps 06/01/23 clindamycin HCl 300 mg capsule 300 mg PO QID 7 days #28 caps 06/08/23 Allergies Allergy/AdvReac Type Severity Reaction Status Date / Time ibuprofen [From Motrin] Allergy Mild STOMACH Verified 06/08/23 10:42 UPSET oxycodone [From Percocet] Allergy Mild ITCHING Verified 06/08/23 10:42 lactose [LACTOSE] Allergy Unknown ABD PAIN Verified 06/08/23 10:42 metformin AdvReac Unknown nausea, Verified 06/08/23 10:42 somnolence amlodipine AdvReac Swelling Verified 06/08/23 10:42 Review of Systems Review of Systems: Constitutional: No fever, chills, fatigue, night sweats, weight changes ENT/Mouth: No ear pain, hearing loss, nasal congestion, sinus pain, rhinorrhea, sore throat, +dental pain Eyes: No eye pain, swelling, redness, vision changes, discharge Cardio: No chest pain, palpitations, LOVELACE, orthopnea, peripheral edema Pulm: No SOB, cough, sputum, wheezing, dyspnea, hemoptysis GI: No nausea, vomiting, hematemesis, abdominal pain, diarrhea, constipation, hematochezia, melena : No irregular bleeding, dysuria, frequency, urgency, hesitancy, hematuria, flank pain, urinary flow changes, urinary incontinence or retention MSK: No back pain, neck pain, joint pain, myalgias Skin: No lesions, rashes Neuro: No weakness, numbness, paresthesias, LOC, dizziness, headache Psych: No anxiety/panic, depression, SI/HI, AH/VH All other systems reviewed and are negative. [facility] Past Medical History Attestation statement: The following information was validated with the patient. Source: old records reviewed and nursing notes reviewed Medical History Uncontrolled type 2 diabetes mellitus with hyperglycemia, with long-term current use of insulin Intracranial vascular stenosis Diabetes HTN (hypertension) CVA (cerebral vascular accident) Right thalamic stroke Obesity (BMI 30-39.9) Depression Anxiety Insomnia GERD without esophagitis Anemia, iron deficiency Lumbar degenerative disc disease Pure hypercholesterolemia Benign essential hypertension Diabetes mellitus Sciatic pain Fibromyalgia Surgical History History of surgery History of left salpingo-oophorectomy H/O bilateral breast reduction surgery History of carpal tunnel release History of appendectomy History of section History of hysterectomy Family History Family History Father Suicide Epilepsy Mother Poor high blood pressure control Diabetes Hypertension Daughter Spina bifida Brother Stroke Other Mental health problem Social History Social History Household Members: Significant Other Housing: Apartment Do you presently have visiting nurse or other home services: No Alcohol intake: never Patient Tobacco Use Status: Never used Tobacco e-Cigarette/Vaping Use: Never Used Second Hand Smoke Exposure: Yes Advance Directives: No Advance Directives Information Provided: No service: No Current occupational status: disabled Cognitive needs: Yes (cane) Hearing needs: No Vision needs: Yes (glasses) Physical Exam Vital Signs: Vital Signs: Last Vital Signs Temp 98 F 06/08/23 10:42 Pulse 88 06/08/23 10:42 Resp 19 06/08/23 10:42 BP 166/79 H 06/08/23 10:42 Pulse Ox 98 06/08/23 10:42 O2 Del Method Room Air 06/08/23 10:42 BMI result Body Mass Index 31.7 Vital signs stable, afebrile. Const: General: cooperative, healthy appearing, comfortable and no acute distress Orientation/consciousness: patient oriented x3 Limitations: no limitations HEENT: Other: + No facial edema. Tongue and lips wnl + multiple dental caries and poor dentit ion. Right lower molar with periapical swelling to the lingual gingiva. No pointing or obvious abscess. No active bleeding/ discharge. TTP. No palpable fluctuance. No swelling to the buccal mucosa. + No edema to buccal mucosa + Posterior oropharynx without erythema/ edema. Uvula midline. Controlling secretions and speaking in complete sentences + No submandublar or submental LAD + No cervical LAD Head: Yes normal to inspection, Yes No palpable skull fracture present, Yes normocephalic and Yes atraumatic Ears: hearing grossly normal bilaterally, external ears normal, TM's normal bilaterally, EAC's normal, mastoids normal and no periauricular adenopathy Eyes: General: appearance normal, both eyes and all related structures Conjunctivae: conjunctivae normal Sclerae: sclerae normal Pupils: Equal, round and reactive pupils present Neck: Neck: Yes normal visual inspection, Yes full ROM and Yes no lymphadenopathy Resp: Effort & Inspection: normal respiratory effort Auscultation: clear to auscultation bilaterally Cardio: Rate: regular rate Rhythm: regular rhythm Skin: General skin exam: no rashes or lesions noted Neuro: General: patient oriented x3 Cranial nerves: Yes Equal, round and reactive pupils present Course Course Course Narrative: 1124-- on exam, there is no appreciable abscess that would warrant drainage. Her airways patent, she is controlling secretions and I am not concern for deeper soft tissue infection. Given patient has been taking amoxicillin without resolution, will send her home with clindamycin. Advised her to call her dentist today and make an appointment for this week. Discussed worrisome signs and symptoms of when to return to the ED. Patient has remained stable throughout ED visit today. All questions answered at this time. Patient is agreeable with disposition and stable for discharge. Medical Decision Making Medical Decision Making MDM Narrative: 62-year-old female with pmhx significant for T2DM, HTN, CVA, depression, anxiety GERD, anemia, fibromyalgia presents to the ED today for evaluation of dental pain and abscess x5 days. Patient noted to be hypertensive to 166/79. Vitals otherwise WNL. Afebrile. Nontoxic appearing and in no acute distress. On exam, there is no facial edema. Tongue and lips wnl. Multiple dental caries and poor dentition. Right lower molar with periapical swelling to the lingual gingiva. No pointing or obvious abscess. No active bleeding/ discharge. TTP. No palpable fluctuance. Posterior oropharynx without erythema/edema. Uvula midline. Controlling secretions and speaking in complete sentences. No submandublar or submental LAD. No cervical LAD. Clinical concern for dental infection, apthous stomatitis. Lower suspicion for periapical abscess. Unlikely mono, strep throat, herpes, sialadenitis, sialolithiasis, [employer], retropharyngeal abscess, deep neck infection, osteomyelitis, facial cellulitis/ abscess, lymphoma. Plan for discharge home with new PO antibiotics. Differential Diagnosis Differential Diagnoses: The differential diagnosis associated with the presentation includes As above. Admission/Observation Not indicated. External Record Review External record reviewed: Inpatient record, Office record, Outpatient record, Prior outpatient labs, Prior outpatient radiology, Primary care record and Outside ED record Tests considered The following testing was considered but not selected: I considered obtaining CT soft tissue neck/facial bones however there is no appreciable mass or abscess that needs to be drained. Not warranted at this time. Prescription Management I considered prescription management with: Pain Medication and Antibiotic (Clindamycin) Chronic Conditions Patient?s care impacted by: Diabetes and Other (Poor dentition, dental caries) Discharge Plan Discharge Clinical Impression: Dental infection Patient Disposition: Home, Self-Care Instructions: Dental Abscess (ED) Additional Instructions: Stop taking the amoxicillin that the walk in clinic prescribed to you. Clindamycin is a new antibiotic that has been sent to your pharmacy. Take this as prescribed and do not skip any doses and this may cause the infection to worsen. YOU NEED TO FOLLOW UP WITH YOUR DENTIST. CALL THEM TODAY TO MAKE AN APPOINTMENT. You may take tyelnol or ibuprofen for pain. Return for new or worsening symptoms or if you begin to have difficulty swallowing. In the case of emergency call 911. Prescriptions: New clindamycin HCl 300 mg capsule 300 mg PO QID 7 Days Qty: 28 0RF No Action diclofenac sodium [Arthritis Pain (diclofenac)] 1 % gel 2 g topical QID 14 Days Qty: 100 0RF Rx Instructions: apply to single elbow, wrist or hand; for hand includes palm/fingers/back of hand (DME) pen needle, diabetic [Pen Needle] 31 gauge x 1/4 needle See Rx Instructions .Route Qty: 100 3RF Rx Instructions: As directed daily insulin glargine [Lantus Solostar U-100 Insulin] 100 unit/mL (3 mL) insulin pen 20 unit subcut BEDTIME Qty: 3 1RF aspirin 81 mg tablet,chewable 81 mg PO DAILY Qty: 30 3RF gabapentin 400 mg capsule 400 mg PO BID Qty: 90 1RF (DME) OneTouch Ultra Test Strip See Rx Instructions .Route Qty: 100 12RF Rx Instructions: As directed - to test blood sugar TID cholecalciferol (vitamin D3) 50 mcg (2,000 unit) tablet 50 mcg PO DAILY Qty: 90 3RF nifedipine 30 mg tablet extended release 24hr 30 mg PO DAILY 30 Days Qty: 30 3RF Protocol: Hold for SBP< HOLD for SBP < : 90 dulaglutide 3 mg/0.5 mL pen injector 3 mg subcut QWEEK 28 Days Qty: 2 3RF atorvastatin 80 mg tablet 80 mg PO BEDTIME Qty: 30 3RF clopidogrel [Plavix] 75 mg tablet 75 mg PO DAILY 30 Days Qty: 30 3RF glimepiride 4 mg tablet 4 mg PO QAM Qty: 30 1RF acetaminophen [Tylenol] 325 mg capsule 650 mg PO Q6H PRN (Reason: pain) Qty: 45 0RF fluoxetine 20 mg capsule 20 mg PO DAILY zolpidem 10 mg tablet 10 mg PO BEDTIME lorazepam 0.5 mg tablet 0.5 mg PO DAILY PRN (Reason: Anxiety) (DME) BLOOD PRESSURE MONITOR See Rx Instructions .Route .MEDSUPPLY Qty: 1 0RF Rx Instructions: As directed (DME) blood-glucose meter [OneTouch Ultra2 Meter] Kit See Rx Instructions .Route Qty: 1 0RF Rx Instructions: As directed- To test blood sugar TID (DME) lancets [OneTouch UltraSoft Lancets] Misc See Rx Instructions .Route Qty: 200 12RF Rx Instructions: As directed- To test blood sugar TID losartan 50 mg tablet 50 mg PO BEDTIME Qty: 30 3RF miconazole nitrate [Miconazole-7] 100 mg suppository 100 mg vaginal BEDTIME 7 Days Qty: 7 0RF pioglitazone [Actos] 15 mg tablet 15 mg PO DAILY Qty: 30 4RF famotidine 20 mg tablet 20 mg PO DAILY 14 Days Qty: 14 0RF amoxicillin 500 mg capsule 500 mg PO BID Qty: 14 0RF Interventions: ED Discharge Assessment Last Done: 06/08/23 11:30 Discharge Date/Time: 06/08/23 11:31
== END 2023-06-08 11:31 | disposition home or self-care (01) ==
PROVIDERS: Emergency Provider Emergency Medicine; PCP Internal Medicine
DX: K04.7 Periapical abscess without sinus (principal); K08.89 Other specified disorders of teeth and supporting structures; I10 Essential (primary) hypertension; E11.9 Type 2 diabetes mellitus without complications
CPT/HCPCS: 99282; 99283

== ENCOUNTER 2023-06-21 10:26 | Outpatient (REF) | payer OTHER, SELFPAY | END 2023-06-21 10:27 | disposition home or self-care (01) | LOC: HO.MAMMO 10:26 | PROVIDERS: PCP Physician Assistant; Visit Provider Internal Medicine | DX: Z12.31 Encounter for screening mammogram for malignant neoplasm of breast (principal) | CPT/HCPCS: 77063; 77067 ==

== ENCOUNTER → 2023-06-21 10:30 | Outpatient (BNV) | payer OTHER, SELFPAY | PROVIDERS: PCP Physician Assistant; Visit Provider Radiology Diagnostic Radiology | DX: Z12.31 Encounter for screening mammogram for malignant neoplasm of breast (principal) | CPT/HCPCS: 77063; 77067 ==

== ENCOUNTER 2023-08-02 10:55 | Outpatient (AMB) | payer OTHER, SELFPAY ==
[2023-08-02 12:32] VITALS: BP 120/80; PULSE 83; TEMP 36.2; O2SAT 97; BMI 32.7
--- NOTE | 2023-08-02 12:32 | MHC.OFFWIV ---
Intake Vital Signs 08/02/23 12:32 Height 4 ft 11 in Weight 162 lb BMI 32.7 BP 120/80 Blood Pressure Location Lt brachial Position Sitting Pulse 83 Pulse Source Pulse Oximeter Temp 97.2 F Temp Source Temporal Artery Scan Pulse Oximetry (%) 97 Oxygen Delivery Method Room Air Intake Visit Reasons: EP RT shoulder/arm tearing pain [id number] Intake Note: pt is here today for rt shoulder and are tearing pain started 1 month ago Patient Tobacco Use Status: Never used Tobacco Allergies ibuprofen [From Motrin] Allergy (Mild, Verified 08/02/23 12:33) STOMACH UPSET oxycodone [From Percocet] Allergy (Mild, Verified 08/02/23 12:33) ITCHING lactose [LACTOSE] Allergy (Unknown, Verified 08/02/23 12:33) ABD PAIN metformin Adverse Reaction (Unknown, Verified 08/02/23 12:33) nausea, somnolence amlodipine Adverse Reaction (Verified 08/02/23 12:33) Swelling Do you need a note to return to daycare/school/sports/work: No HPI EP RT shoulder/arm tearing pain [id number] HPI Details 62-year-old female patient who presents today with a one-month history of right shoulder pain. She denies any inciting event or injury to this. She reports constant aching pain, and at times a tearing sensation in her shoulder. Pain radiates down into deltoid and also into shoulder blade. At times this radiates into right index finger. Denies any arm weakness or paresthesias. Denies any neck pain. She has taken Tylenol at home and tried massage and heating pads with minimal relief. [facility] Medical History Uncontrolled type 2 diabetes mellitus with hyperglycemia, with long-term current use of insulin Intracranial vascular stenosis Diabetes HTN (hypertension) CVA (cerebral vascular accident) Right thalamic stroke Obesity (BMI 30-39.9) Depression Anxiety Insomnia GERD without esophagitis Anemia, iron deficiency Lumbar degenerative disc disease Pure hypercholesterolemia Benign essential hypertension Diabetes mellitus Sciatic pain Fibromyalgia Surgical History History of surgery History of left salpingo-oophorectomy H/O bilateral breast reduction surgery History of carpal tunnel release History of appendectomy History of section History of hysterectomy Family History Father Suicide Epilepsy Mother Poor high blood pressure control Diabetes Hypertension Daughter Spina bifida Brother Stroke Other Mental health problem Social History Household Members: Significant Other Housing: Apartment Do you presently have visiting nurse or other home services: No Alcohol intake: never Patient Tobacco Use Status: Never used Tobacco e-Cigarette/Vaping Use: Never Used Second Hand Smoke Exposure: Yes service: No Current occupational status: disabled Cognitive needs: Yes (cane) Hearing needs: No Vision needs: Yes (glasses) Review of Systems Const All systems reviewed & are unremarkable except as noted in HPI and below Physical Exam Vital Signs: Last Vital Signs Temp 97.2 F 08/02/23 12:32 Pulse 83 08/02/23 12:32 BP 120/80 08/02/23 12:32 Pulse Ox 97 08/02/23 12:32 Oxygen Delivery Method Room Air 08/02/23 12:32 BMI result Body Mass Index 32.7 Const General: cooperative and no acute distress Neck Neck: Yes normal visual inspection Resp Effort & Inspection: normal respiratory effort Auscultation: clear to auscultation bilaterally Cardio Rate: regular rate Rhythm: regular rhythm Back/Spine/Pelvis Cervical Spine: normal cervical lordosis and cervical ROM normal (negative spurling) Skin General skin exam: no rashes or lesions noted Neuro General: tone normal and deep tendon reflexes 2+ bilaterally Motor exam (neuro): 5/5 motor strength present throughout Extrem General: Yes capillary refill normal and Yes no clubbing, cyanosis or edema Right upper extremity: shoulder/upper arm Details: normal to inspection, tenderness Location: of the A-C joint and of the proximal humerus and abnormal ROM Details: pain with active ROM Details: in ABduction Psych Appearance: grossly normal Mental Status: mental status grossly normal Speech and movement: Normal speech and movement present Assessment & Plan Assessment & Plan (1) Right shoulder pain: Code(s): M25.511 - Pain in right shoulder Qualifiers: Chronicity: acute Qualified Code(s): M25.511 - Pain in right shoulder Plan: Right shoulder pain x1m with radiation around shoulder into proximal humerus/deltoid area and also into right trap/rhomboids. She reports occasional radiation down arm into right index finger, so this could possibly represent C7 radiculopathy, however her pain generator appears to be her right shoulder/deltoid region. She did not have an injury or distinct inciting event to this pain. XR in the office showed normal right shoulder. I am going to start her on a short course of Flexeril. She is on Plavix so I cannot start her on an NSAID. She can continue to take Tylenol - I will refill rx for this. We reviewed indications, use, possible side effects of medication. I am also going to place referral to PT for evaluation - patient would like [facility] in [place]. She has an appt. in a couple of weeks on 08/[address] Peoples. She can discuss further at that time if pain is ongoing. All questions were answered and patient agrees to plan. Orders: Orders XR shoulder RT min 2V Today M25.511 - Pain in right shoulder Medications: New cyclobenzaprine 10 mg PO BEDTIME PRN 7 tabs 0RF muscle spasm M25.511 - Pain in right shoulder acetaminophen ER (Arthritis Pain Relief (acetaminophen) ER) 650 mg PO Q12H PRN 30 tabs 0RF pain M25.511 - Pain in right shoulder Coding Level of Care Code Est Pt Level 4 (58702) Diagnoses Acute pain of right shoulder M25.511 Chronicity: acute
== END 2023-08-02 14:04 | disposition home or self-care (01) ==
PROVIDERS: PCP Physician Assistant; Visit Provider Nurse Practitioner Family
DX: M25.511 Pain in right shoulder (principal)
CPT/HCPCS: 99214

== ENCOUNTER 2023-08-02 12:53 | Outpatient (REF) | payer OTHER, SELFPAY ==
--- NOTE | ~2023-08-02 | XR_ITS ---
EXAMINATION: XR SHOULDER, RIGHT CLINICAL INFORMATION: Pain in right shoulder COMPARISON: None available. TECHNIQUE: AP external rotation, Grashey, scapular Y, and axillary views of the right shoulder. FINDINGS: The bones and soft tissues are normal. No fracture. Glenohumeral and acromioclavicular alignment is anatomic with normal joint space. No abnormal soft tissue calcifications. XR/XR shoulder RT min 2V IMPRESSION: Normal right shoulder.
== END 2023-08-02 12:54 | disposition home or self-care (01) ==
LOC: HO.HMGCX 12:53
PROVIDERS: PCP Internal Medicine; Visit Provider Nurse Practitioner Family
DX: M25.511 Pain in right shoulder (principal)
CPT/HCPCS: 73030

== ENCOUNTER 2023-08-23 10:20 | Outpatient (AMB) | payer OTHER, SELFPAY ==
[2023-08-23 10:39] VITALS: BP 152/84; PULSE 80; BMI 32.4
--- NOTE | 2023-08-23 10:39 | MHC.PC.OV ---
Vital Signs 08/23/23 10:39 Height 4 ft 11 in Weight 160 lb 6 oz BMI 32.4 BP 152/84 H Blood Pressure Location Lt brachial Position Sitting Pulse 80 Pulse Source Palpation Oxygen Delivery Method Room Air Intake Visit Reasons: uncontrolled DM, HTN, hyperlipidemia Intake Note: Patient presents today for routine follow-up. Main concern is right shoulder pain and request for MRI to assess for possible tear. Additionally, patient reports experiencing low blood sugar predominantly in the mornings, leading to nausea and vomiting. Dental Therapist Required: No Accompanied by: Self / Same As Patient Allergies ibuprofen [From Motrin] Allergy (Mild, Verified 08/23/23 11:02) STOMACH UPSET oxycodone [From Percocet] Allergy (Mild, Verified 08/23/23 11:02) ITCHING lactose [LACTOSE] Allergy (Unknown, Verified 08/23/23 11:02) ABD PAIN metformin Adverse Reaction (Unknown, Verified 08/23/23 11:02) nausea, somnolence amlodipine Adverse Reaction (Verified 08/23/23 11:02) Swelling Medication List - Last Reconciled 08/23/23 by Michael Peoples MD acetaminophen (Tylenol) 650 mg (2 x 325 mg) PO Q6H PRN acetaminophen ER (Arthritis Pain Relief (acetaminophen) ER) 650 mg PO Q12H PRN aspirin 81 mg PO DAILY atorvastatin 80 mg PO BEDTIME [BLOOD PRESSURE MONITOR As directed] blood sugar diagnostic ([employer] Ultra Test strips) As directed - to test blood sugar TID blood-glucose meter ([employer]uch Ultra2 Meter kit) As directed- To test blood sugar TID cholecalciferol (vitamin D3) 50 mcg PO DAILY clindamycin HCl 300 mg PO QID 7 days clopidogrel (Plavix) 75 mg PO DAILY 30 days cyclobenzaprine 10 mg PO BEDTIME PRN diclofenac sodium 1% (Arthritis Pain (diclofenac)) 2 grams topical QID 14 days dulaglutide 3 mg (0.5 mL) subcut QWEEK 4 weeks famotidine 20 mg PO DAILY 14 days fluoxetine 20 mg PO DAILY gabapentin 400 mg PO BID glimepiride 4 mg PO QAM insulin glargine (Lantus Solostar U-100 Insulin) 20 units (0.2 mL) subcut BEDTIME lancets ([employer]uch UltraSoft Lancets) As directed- To test blood sugar TID lorazepam 0.5 mg PO DAILY PRN losartan 50 mg PO BEDTIME miconazole nitrate (Miconazole-7) 100 mg vaginal BEDTIME 7 days nifedipine ER 30 mg See Protocol PO DAILY 30 days pen needle, diabetic (Pen Needle) As directed daily pioglitazone (Actos) 15 mg PO DAILY zolpidem 10 mg PO BEDTIME Tobacco use date assessed: 05/16/23 Dental Screening Dental Screen Date: 05/16/23 HPI uncontrolled DM, HTN, hyperlipidemia HPI Details Patient comes in today for her follow up visit States that she has been experiencing increased pain over her right shoulder area for a couple of months now Was seen by orthopedics for her shoulder about 2 to 3 weeks ago and had x-rays done in the office, which came out normal She was tried on Cyclobenzaprine and recommended to go for physical therapy, which does not appear to have been ordered Patient states that she has not received any call from PT so far and because her shoulder continues to bother her, is wondering if we can send her for an MRI of the shoulder to check for any possible muscle tear Also recalls that she was experiencing some recurrent symptoms of nausea and abdominal bloating when he raised the dose of her Trulicity up to 3 mg a few months ago but this has subsided a lot recently Relates that she has occasionally gotten readings of around 106 mg/dl on her blood sugar and recalls that she was feeling very tired and somewhat lightheaded when her blood sugar gets this low She denies any headaches Denies any chest pains, no SOB No abdominal pains lately and states that her previous nausea (mostly related to her Trulicity injections) have eased up a lot lately No change in bowel habits noted Needs her Gabapentin Rx refilled She was not able to get her follow up labs done prior to her appointment today She is also scheduled to see Dr. Reilly for the first time next week for endocrinology evaluation for her diabetes [facility] Medical History Uncontrolled type 2 diabetes mellitus with hyperglycemia, with long-term current use of insulin Intracranial vascular stenosis Diabetes HTN (hypertension) CVA (cerebral vascular accident) Right thalamic stroke Obesity (BMI 30-39.9) Depression Anxiety Insomnia GERD without esophagitis Anemia, iron deficiency Lumbar degenerative disc disease Pure hypercholesterolemia Benign essential hypertension Diabetes mellitus Sciatic pain Fibromyalgia Surgical History History of surgery History of left salpingo-oophorectomy H/O bilateral breast reduction surgery History of carpal tunnel release History of appendectomy History of section History of hysterectomy Family History Father Suicide Epilepsy Mother Poor high blood pressure control Diabetes Hypertension Daughter Spina bifida Brother Stroke Other Mental health problem Social History Household Members: Significant Other Housing: Apartment Do you presently have visiting nurse or other home services: No Alcohol intake: never Patient Tobacco Use Status: Never used Tobacco e-Cigarette/Vaping Use: Never Used Second Hand Smoke Exposure: Yes service: No Current occupational status: disabled Cognitive needs: Yes (cane) Hearing needs: No Vision needs: Yes (glasses) Questionnaire Thrive Questionnaire Date Thrive assessed: 05/16/23 SAUL-7 AMB Questionnaire SAUL-7 Date SAUL - 7 assessed: 05/16/23 Source: Developed by Drs. Casper Tamayo, Ayah Gaviria, Malik Brady and colleagues, with an educational óscar from [employer]. Review of Systems Const Denies chills, Reports fatigue, Denies fever(s) and Denies headache(s) ENT Denies dysphagia, Denies dizziness, Denies otalgia, Denies headache(s), Denies neck pain, Denies odynophagia and Denies sore throat Card Denies chest pain, Denies palpitations and Denies dyspnea Resp Denies chest congestion, Denies cough, Denies dyspnea and Denies wheezing GI Denies abdominal pain, Denies constipation, Denies dysphagia, Denies heartburn, Denies diarrhea, Denies nausea, Denies odynophagia and Denies vomiting Reports nocturia, Denies dysuria and Denies urinary urgency Musc Reports back pain (over the lower back -chronic), Reports arthralgias (increased over the right shoulder lately) and Denies neck pain Skin/Breast Denies rash Neuro Denies dizziness and Denies headache(s) Endo Reports fatigue and Denies palpitations Aller/Immun Denies wheezing Physical exam (Primary Care) Vital Signs: Last Vital Signs Pulse 80 08/23/23 10:39 BP 152/84 H 08/23/23 10:39 Oxygen Delivery Method Room Air 08/23/23 10:39 BMI result Body Mass Index 32.4 Tobacco/Smoking Status: Tobacco use Status Tobacco use date assessed 05/16/23 08/23/23 10:42 Patient Tobacco Use Status Never used Tobacco 08/23/23 10:42 e-Cigarette/Vaping Use Never Used 08/23/23 10:42 Thrive Assessment: Date of Thrive Assessment Date Thrive assessed 05/16/23 08/23/23 10:42 Const General: no acute distress and alert HENMT Ears: TM's normal bilaterally and EAC's normal Throat: Yes posterior oropharynx normal and Yes tonsils normal (no TP congestion noted) Neck Neck: Yes no lymphadenopathy and Yes supple Thyroid: Thyroid normal Resp Auscultation: clear to auscultation bilaterally, no rales and no wheezes Cardio Rate: regular rate Rhythm: regular rhythm Heart sounds: no murmurs GI Palpation (GI): Soft to palpation and nontender Auscultation: normal bowel sounds General: Yes no CVA tenderness Back/Spine/Pelvis Back: no CVA tenderness Thoracic/Lumbar Spine: lumbar spinal tenderness (mild) Skin Rashes: no rashes Extrem General: Yes no clubbing, cyanosis or edema Right upper extremity: shoulder/upper arm Details: tenderness Location: of the A-C joint Results AMB Hemoglobin A1c AMB Hemoglobin A1c 9.0 % Last Edit by CHAD Auguste on 08/23/23 10:55 Results Reviewed Results Reviewed: Laboratory Last Values Hgb A1c (Clinic) 9.0 % (4.0-6.0) H 08/23/23 10:54 Assessment and Plan Assessment & Plan (1) Diabetes mellitus: Code(s): E11.9 - Type 2 diabetes mellitus without complications Qualifiers: Diabetes mellitus complication status: with hyperglycemia 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 Reilly next week on 08/30/2023 (2) Benign essential hypertension: Code(s): I10 - Essential (primary) hypertension Plan: Reinforced low-sodium diet - goal is systolic BP of 120 to 130 mm or less Continue Losartan 50 mg Q PM and Nifedipine ER 30 mg Q AM (3) Pure hypercholesterolemia: Code(s): E78.00 - Pure hypercholesterolemia, unspecified Plan: She is advised to try and get her previously ordered labs done GEORGE Reinforced low-cholesterol diet Continue Atorvastatin 80 mg QD Will recheck her labs and fasting lipids in 3 months for follow up (4) Right thalamic stroke: Code(s): I63.9 - Cerebral infarction, unspecified Plan: MRI of the brain in November 2020 showed (+) acute lacunar infarct involving the right thalamus Patient does not appear to have any significant residual neurologic or physical deficits from her CVA Continue Aspirin 81 mg QD and Clopidogrel 75 mg QD and emphasized again the importance of better control of her blood pressure, blood sugar and cholesterol to prevent recurrence of her CVA Follow-up with neurology as scheduled or as needed - states that she was told at her recent neurology follow up that she does not need to see them regularly from now on and only as needed (5) Low back pain: Code(s): M54.50 - Low back pain, unspecified Qualifiers: Back pain laterality: unspecified Chronicity: unspecified Sciatica presence: unspecified whether sciatica present Qualified Code(s): M54.50 - Low back pain, unspecified Plan: Continue Gabapentin 400 mg BID Lumbar spine x-rays done in July 2021 revealed mild multilevel degenerative disc disease with lower lumbar spine facet arthropathy, unchanged. Stable, chronic grade 1 anterolisthesis of L5 on S1. No acute osseous abnormality. (6) Right shoulder pain: Code(s): M25.511 - Pain in right shoulder Qualifiers: Chronicity: unspecified Qualified Code(s): M25.511 - Pain in right shoulder Plan: She was seen by orthopedics recently and advised to go for physical therapy but patient states that she has not yet been contacted by PT to schedule her sessions Will refer her to physical therapy for further evaluation and management (7) Insomnia: Code(s): G47.00 - Insomnia, unspecified Qualifiers: Insomnia type: unspecified Qualified Code(s): G47.00 - Insomnia, unspecified Plan: Sleep hygiene reinforced Continue Zolpidem 10 mg once a day at bedtime as needed (8) Anxiety: Code(s): F41.9 - Anxiety disorder, unspecified Plan: Continue Lorazepam 0.5 mg 1 tablet once a day as needed (9) Depression: Code(s): F32.9 - Major depressive disorder, single episode, unspecified Qualifiers: Active/Remission status: currently active Depression Type: major depressive disorder Major depression episode severity: unspecified Major depression recurrence: recurrent Qualified Code(s): F33.9 - Major depressive disorder, recurrent, unspecified Plan: Continue Fluoxetine 20 mg once a day in the morning Follow-up with Psychiatry as scheduled (10) Obesity (BMI 30-39.9): Code(s): E66.9 - Obesity, unspecified Plan: Reinforced diet/exercise as tolerated/lose weight Plan Follow up in 3 months Orders: Orders AMB Hemoglobin A1c 08/23/23 E11.65 - Type 2 diabetes mellitus with hyperglycemia, Z79.4 - intermediate (current) use of insulin Hemoglobin A1c 3 Months E11.9 - Type 2 diabetes mellitus without complications Complete Blood Count Auto Diff 3 Months D64.9 - Anemia, unspecified Vitamin B12 and Folate 3 Months E53.8 - Deficiency of other specified B group vitamins PT Evaluation and Treatment 08/23/23 M25.511 - Pain in right shoulder Lipid Panel 3 Months E78.00 - Pure hypercholesterolemia, unspecified Comprehensive [place]. Panel Fast 3 Months E78.00 - Pure hypercholesterolemia, unspecified TSH reflex Free T4 3 Months E78.00 - Pure hypercholesterolemia, unspecified UA CC w/rflx Micro + Cult 3 Months R30.0 - Dysuria Microalbumin, Random (w Creat) 3 Months E11.9 - Type 2 diabetes mellitus without complications Vitamin D 25-OH Total 3 Months E55.9 - Vitamin D deficiency, unspecified Medications: Refilled gabapentin 400 mg PO BID 90 caps 1RF Coding Level of Care Code Est Pt Level 4 (82162) Diagnoses Type 2 diabetes mellitus with hyperglycemia, without long-term current use of insulin E11.65 Diabetes mellitus complication status: with hyperglycemia Diabetes mellitus retirement insulin use: without retirement use Diabetes mellitus type: type 2 Benign essential hypertension I10 Pure hypercholesterolemia E78.00 Right thalamic stroke I63.9 Low back pain, unspecified back pain laterality, unspecified chronicity, unspecified whether sciatica present M54.50 Back pain laterality: unspecified Chronicity: unspecified Sciatica presence: unspecified whether sciatica present Right shoulder pain, unspecified chronicity M25.511 Chronicity: unspecified Insomnia, unspecified type G47.00 Insomnia type: unspecified Anxiety F41.9 Episode of recurrent major depressive disorder, unspecified depression episode severity F33.9 Active/Remission status: currently active Depression Type: major depressive disorder Major depression episode severity: unspecified Major depression recurrence: recurrent Obesity (BMI 30-39.9) E66.9
== END 2023-08-23 11:09 | disposition home or self-care (01) ==
PROVIDERS: PCP Internal Medicine; Visit Provider Internal Medicine
DX: E11.65 Type 2 diabetes mellitus with hyperglycemia (principal); F33.9 Major depressive disorder, recurrent, unspecified; E66.9 Obesity, unspecified; Z68.32 Body mass index [BMI] 32.0-32.9, adult; I10 Essential (primary) hypertension; E78.00 Pure hypercholesterolemia, unspecified; M54.50 Low back pain, unspecified; M25.511 Pain in right shoulder; G47.00 Insomnia, unspecified; F41.9 Anxiety disorder, unspecified; Z86.73 Personal history of transient ischemic attack (TIA), and cerebral infarction without residual deficits
CPT/HCPCS: 83036; 99214

== ENCOUNTER 2023-08-24 08:26 | Outpatient (REF) | payer OTHER, SELFPAY ==
[2023-08-24 08:44] LABS: MANUAL DIFF FLAG NO
[2023-08-24 08:59] LABS: Basophils Absolute Auto 0.1 X10*3/uL (0.0-0.2); Basophils Percent Auto 0.6 % (0-2); Eosinophils Absolute Auto 0.4 X10*3/uL (0.0-0.4); Eosinophils Percent Auto 3.4 % (0-4); Hematocrit 35.8 % (37.0-47.0); Hemoglobin 12.1 g/dl (12.0-16.0); Imm Gran Abs Auto 0.03 X10*3/uL (0.00-0.03); Imm Gran Pct Auto 0.3 % (0.0-0.4); Lymphocytes Absolute Auto 3.6 X10*3/uL (1.2-4.9); Lymphocytes Percent Auto 34.5 % (20-40); Mean Corpuscular HGB Conc 33.8 g/dl (31.0-35.0); Mean Corpuscular Hemoglobin 28.1 pg (27.0-33.0); Mean Corpuscular Volume 83.3 fL (80.0-98.0); Monocytes Absolute Auto 0.7 X10*3/uL (0.1-1.2); Monocytes Percent Auto 6.2 % (2-11); Neutrophils Absolute Auto 5.8 x10*3/uL (2.0-8.3); Platelet Count 423 X10*3/uL (160-400); Red Cell Distribution Width 11.7 % (11.0-16.0); White Blood Count 10.5 X10*3/uL (4.8-10.8)
[2023-08-24 09:34] LABS: Alanine Aminotransferase 24 U/L (0-31); Albumin Level 3.8 g/dL (3.5-5.0); Alkaline Phosphatase 104 U/L (39-117); Anion Gap 16 (12-20); Aspartate Amino Transferase 17 U/L (5-31); Bilirubin Total 0.2 mg/dL (0.0-1.0); Blood Urea Nitrogen 13 mg/dL (9-16); Calcium 9.8 mg/dL (8.4-10.2); Carbon Dioxide 28 mmol/L (22-29); Chloride 100 mmol/L (96-108); Cholesterol 217 mg/dL (<200); Estimated Glomerular Filt Rate 56; Glucose Fasting 200 mg/dL (60-99); HDL Cholesterol 47 mg/dL (>40); LDL Cholesterol Calculated 125 mg/dL (<100); Potassium 3.5 mmol/L (3.3-5.1); Sodium 140 mmol/L (135-145); Total Protein 7.9 g/dL (6.5-8.0); Triglycerides 225 mg/dL (<150)
[2023-08-24 09:55] LABS: TSH reflex Free T4 2.84 uIU/mL (0.32-4.0); Vitamin D 25-OH Total 39.7 ng/mL (>30)
[2023-08-24 11:12] LABS: Folate 11.8 ng/mL (> or = 4.0); Vitamin B12 552 pg/mL (200-900)
== END 2023-08-24 08:27 | disposition home or self-care (01) ==
LOC: HO.LAB 08:26
PROVIDERS: PCP Internal Medicine; Visit Provider Internal Medicine
DX: D64.9 Anemia, unspecified (principal); E78.00 Pure hypercholesterolemia, unspecified; E53.8 Deficiency of other specified B group vitamins; E55.9 Vitamin D deficiency, unspecified
CPT/HCPCS: 36415; 80053; 80061; 82306; 82607; 82746; 84443; 85025

== ENCOUNTER 2023-10-23 13:47 | Outpatient (AMB) | payer OTHER, SELFPAY ==
[2023-10-23 13:50] VITALS: BP 152/88; PULSE 98; TEMP 37.2; O2SAT 98; BMI 32.5
--- NOTE | 2023-10-23 13:50 | MHC.OFFWIV ---
Intake Vital Signs 10/23/23 13:50 Height 4 ft 11 in Weight 161 lb BMI 32.5 BP 152/88 H Blood Pressure Location Lt brachial Position Sitting Pulse 98 Pulse Source Pulse Oximeter Temp 98.9 F Temp Source Oral Pulse Oximetry (%) 98 Oxygen Delivery Method Room Air Intake Visit Reasons: abscess in butt, rt foot pain bottom Intake Note: Pt is here c/o abscess in buttocks Patient Tobacco Use Status: Never used Tobacco Allergies ibuprofen [From Motrin] Allergy (Mild, Verified 10/23/23 13:51) STOMACH UPSET oxycodone [From Percocet] Allergy (Mild, Verified 10/23/23 13:51) ITCHING lactose [LACTOSE] Allergy (Unknown, Verified 10/23/23 13:51) ABD PAIN metformin Adverse Reaction (Unknown, Verified 10/23/23 13:51) nausea, somnolence amlodipine Adverse Reaction (Verified 10/23/23 13:51) Swelling Do you need a note to return to daycare/school/sports/work: No HPI HPI Comments History of Present Illness Details 62-year-old female presents today complaining of a pain in abscess the right side of her buttock cleft. She has had it for 3 or 4 days and it is tender to palpation. Denies any discharge from the lesion [facility] Medical History Uncontrolled type 2 diabetes mellitus with hyperglycemia, with long-term current use of insulin Intracranial vascular stenosis Diabetes HTN (hypertension) CVA (cerebral vascular accident) Right thalamic stroke Obesity (BMI 30-39.9) Depression Anxiety Insomnia GERD without esophagitis Anemia, iron deficiency Lumbar degenerative disc disease Pure hypercholesterolemia Benign essential hypertension Diabetes mellitus Sciatic pain Fibromyalgia Surgical History History of surgery History of left salpingo-oophorectomy H/O bilateral breast reduction surgery History of carpal tunnel release History of appendectomy History of section History of hysterectomy Family History Father Suicide Epilepsy Mother Poor high blood pressure control Diabetes Hypertension Daughter Spina bifida Brother Stroke Other Mental health problem Social History Household Members: Significant Other Housing: Apartment Do you presently have visiting nurse or other home services: No Alcohol intake: never Patient Tobacco Use Status: Never used Tobacco e-Cigarette/Vaping Use: Never Used Second Hand Smoke Exposure: Yes service: No Current occupational status: disabled Cognitive needs: Yes (cane) Hearing needs: No Vision needs: Yes (glasses) Review of Systems Const All systems reviewed & are unremarkable except as noted in HPI and below Physical Exam Const General: healthy appearing and no acute distress Skin Lesions: lesion noted (Lesion palpated on the right side of the cleft of the buttock) Assessment & Plan Assessment & Plan (1) Abscess and cellulitis of gluteal region: Code(s): L02.31 - Cutaneous abscess of buttock; L03.317 - Cellulitis of buttock Plan: The patient will take antibiotics and I recommended a warm Sitz baths daily for the next 4 5 days Plan See plan Medications: New cephalexin 500 mg PO BID 7 days 14 caps 0RF Coding Level of Care Code Est Pt Level 3 (24281) Diagnoses Abscess and cellulitis of gluteal region L02.31; L03.317
== END 2023-10-23 15:26 | disposition home or self-care (01) ==
PROVIDERS: PCP Internal Medicine; Visit Provider Physician Assistant Medical
DX: L02.31 Cutaneous abscess of buttock (principal); L03.317 Cellulitis of buttock
CPT/HCPCS: 99213

== ENCOUNTER 2023-10-31 11:14 | Outpatient (AMB) | payer OTHER, SELFPAY ==
[2023-10-31 11:18] VITALS: BP 158/84; PULSE 87; BMI 31.9
--- NOTE | 2023-10-31 11:18 | MHC.OFFVIS ---
Vital Signs 10/31/23 11:18 Height 4 ft 11 in Weight 158 lb 1.143 oz BMI 31.9 BP 158/84 H Blood Pressure Location Lt brachial Position Sitting Pulse 87 Pulse Source Pulse Oximeter Intake Visit Reasons: DM2, last seen 11/29/21/CONFIRMED Intake Note: New Patient presents today to established treatment for Diabetes Type 2. Most recent Eye Exam: Over 2 years ago Most recent Podiatry Exam: Does not see a Set Up And Lay Out Inspector Most recent HbA1c: 9.0%, 08/23/2023 Random Glucose- 278 mg/dL, Today Drop Machine Operator Required: No Accompanied by: Self / Same As Patient Allergies ibuprofen [From Motrin] Allergy (Mild, Verified 10/31/23 11:22) STOMACH UPSET oxycodone [From Percocet] Allergy (Mild, Verified 10/31/23 11:22) ITCHING lactose [LACTOSE] Allergy (Unknown, Verified 10/31/23 11:22) ABD PAIN metformin Adverse Reaction (Unknown, Verified 10/31/23 11:22) nausea, somnolence amlodipine Adverse Reaction (Verified 10/31/23 11:22) Swelling Medication List - Last Reconciled 10/31/23 by Doreen Spaulding MD acetaminophen (Tylenol) 650 mg (2 x 325 mg) PO Q6H PRN acetaminophen ER (Arthritis Pain Relief (acetaminophen) ER) 650 mg PO Q12H PRN aspirin 81 mg PO DAILY atorvastatin 80 mg PO BEDTIME [BLOOD PRESSURE MONITOR As directed] blood sugar diagnostic ([employer] Ultra Test strips) As directed - to test blood sugar TID blood-glucose meter ([employer] Ultra2 Meter kit) As directed- To test blood sugar TID cephalexin 500 mg PO BID 7 days cholecalciferol (vitamin D3) 50 mcg PO DAILY clopidogrel (Plavix) 75 mg PO DAILY 30 days diclofenac sodium 1% (Arthritis Pain (diclofenac)) 2 grams topical QID 14 days dulaglutide 3 mg (0.5 mL) subcut QWEEK 4 weeks famotidine 20 mg PO DAILY 14 days fluoxetine 20 mg PO DAILY gabapentin 400 mg PO BID glimepiride 4 mg PO QAM insulin glargine (Lantus Solostar U-100 Insulin) 20 units (0.2 mL) subcut BEDTIME lancets ([employer] UltraSoft Lancets) As directed- To test blood sugar TID lorazepam 0.5 mg PO DAILY PRN losartan 50 mg PO BEDTIME miconazole nitrate (Miconazole-7) 100 mg vaginal BEDTIME 7 days nifedipine ER 30 mg See Protocol PO DAILY 30 days pen needle, diabetic (Pen Needle) As directed daily pioglitazone (Actos) 15 mg PO DAILY zolpidem 10 mg PO BEDTIME HPI Comments Details: 63 year old female presenting for follow up of type 2 diabetes. Initially diagnosed with T2DM > 10 yrs ago. Was initially started on treatment with metformin .Got sleepy with metformin . Current regimen -Trulicity 1.5 mg Qwkly. Missed last few doses due to shortage Glimepimide 4 mg QD-has been out Actos 15mg daily Lantus -taking 14 units. Sometimes takes 20 if no recent low blood glucose Previous medication metformin-did not tolerate. Glucometer download shows she is checking her point cares ~1x/day. All readings hyperglycemia. No lows noted. Family history of T2DM in maternal Type 2 DM . Has seen ophtho-says she is overdue Neuropathic pain-on gabapentin. Previously saw podiatry Denies nephropathy, on ALLAN/ARB. Has HLD, on statin. Denies CAD.Had CVA last yr Had diabetes education.In distant past ROS see HPI PHYSICAL EXAM: GENERAL: Alert and oriented x 3. NAD EYES: EOMI. Anicteric. HENT: Moist mucous membranes. No scleral icterus. No cervical lymphadenopathy. LUNGS: Clear to auscultation bilaterally. CARDIOVASCULAR: Regular rate and rhythm. No murmur. No JVD. ABDOMEN: Soft, non-tender +bs EXTREMITIES: No edema. Non-tender. SKIN: No rashes or lesions. Warm. NEUROLOGIC: No focal neurological deficits. CN II-XII grossly intact PSYCHIATRIC: Cooperative. Appropriate mood and affect [facility] Medical History Uncontrolled type 2 diabetes mellitus with hyperglycemia, with long-term current use of insulin Intracranial vascular stenosis Diabetes HTN (hypertension) CVA (cerebral vascular accident) Right thalamic stroke Obesity (BMI 30-39.9) Depression Anxiety Insomnia GERD without esophagitis Anemia, iron deficiency Lumbar degenerative disc disease Pure hypercholesterolemia Benign essential hypertension Diabetes mellitus Sciatic pain Fibromyalgia Surgical History History of surgery History of left salpingo-oophorectomy H/O bilateral breast reduction surgery History of carpal tunnel release History of appendectomy History of section History of hysterectomy Family History Father Suicide Epilepsy Mother Poor high blood pressure control Diabetes Hypertension Daughter Spina bifida Brother Stroke Other Mental health problem Social History Household Members: Significant Other Housing: Apartment Do you presently have visiting nurse or other home services: No Alcohol intake: never Patient Tobacco Use Status: Never used Tobacco e-Cigarette/Vaping Use: Never Used Second Hand Smoke Exposure: Yes service: No Current occupational status: disabled Cognitive needs: Yes (cane) Hearing needs: No Vision needs: Yes (glasses) Physical Exam Vital Signs: Last Vital Signs Pulse 87 10/31/23 11:18 BP 158/84 H 10/31/23 11:18 BMI result Body Mass Index 31.9 Results Reviewed Results Reviewed: Laboratory Last Values Glucose (Clinic) 278 mg/dL (60-115) H 10/31/23 11:26 Assessment & Plan Assessment & Plan (1) Uncontrolled type 2 diabetes mellitus with hyperglycemia, with long-term current use of insulin: Code(s): E11.65 - Type 2 diabetes mellitus with hyperglycemia; Z79.4 - superintendent container terminal (current) use of insulin Category: Medical Plan: Continue Lantus 14. Advised safe to go up to 20 unit daily Continue glimepiride. Increase trulicity to 3mg. If unavailable, start ozempic 1mg daily Increase Actos to 30mg daily Referred to see diabetic rn educator. Medications: New pioglitazone 30 mg PO DAILY 90 tabs 3RF semaglutide 1 mg (0.75 mL) subcut QWEEK 3 mL 3RF Refilled glimepiride 4 mg PO QAM 30 tabs 1RF Discontinued pioglitazone (Actos) Discontinued Reason: Duplicate 15 mg PO DAILY 30 tabs 4RF Coding Level of Care Code Est Pt Level 5 (01560) Diagnoses Uncontrolled type 2 diabetes mellitus with hyperglycemia, with long-term current use of insulin E11.65; Z79.4
[2023-10-31 11:30] LABS: Glucose, Whole Blood 278 mg/dL (60-115)
== END 2023-10-31 11:49 | disposition home or self-care (01) ==
PROVIDERS: PCP Internal Medicine; Visit Provider Internal Medicine
DX: E11.65 Type 2 diabetes mellitus with hyperglycemia (principal); Z79.4 Long term (current) use of insulin
CPT/HCPCS: 99214

== ENCOUNTER → 2023-10-31 11:14 | Outpatient (BNVA) | payer OTHER, SELFPAY | PROVIDERS: PCP Internal Medicine; Visit Provider Internal Medicine | DX: E11.65 Type 2 diabetes mellitus with hyperglycemia (principal); Z79.4 Long term (current) use of insulin | CPT/HCPCS: 82947; 99212 ==

== ENCOUNTER 2023-11-01 13:00 | Outpatient (RCR) | payer OTHER, SELFPAY ==
--- NOTE | 2023-10-12 16:09 | MHC.PT.EP ---
[facility] [place] Office [place] Office [place] Office [address] Titi Walker [address] [phone] F: [phone] F: [phone] F: [phone] F: [phone] Physical Therapy Plan of Care Date of Evaluation: 10/11/23 Date of Surgery: n/a Diagnosis: Pain in right shoulder Assessment: Pt is a pleasant and motivated 62yo F who presents to PT with right shoulder pain. She presents to PT with current impairments in pain, decreased right shoulder ROM, decreased UE strength, soft tissue restrictions, and impaired posture. She is limited functionally by cooking, overhead ADLs, cooking, reaching, and lifting. She is an excellent candidate for skilled PT in order to address current impairments to facilitate return to PLOF. She is recommended to be seen 2x/week for 4 weeks and will be reassessed at that time Frequency and Duration: The patient will be seen 2x/week for 4 weeks Short Term Goals: Pt will be I with HEP to promote self management of symptoms Pt will improve right shoulder flexion by at least 10 degrees [facility] Goals: Pt will achieve right shoulder strength to at least 4+/5 to assist with lifting and reaching Pt will perform overhead ADLs with minimal to no compensation Pt will demonstrate improvements in function as evidenced by statistically significant improvement in SPADI outcome measure Treatment Plan: Modalities to reduce pain, spasms and effusion. Manual therapy to restore motion and function. Therapeutic exercise to improve strength and flexibility. Neuromuscular re-education for posture and balance. Therapeutic activities to return to functional activities of daily living. Electronically signed by: Judith Kerns, PT, DPT Please sign and return to therapist. Thank you for your referral.
--- NOTE | 2024-01-15 10:44 | MHC.PT.DC ---
[facility] [place] [facility] [place] [facility] [place] [facility] [address] Titi Walker [address] [phone] F: [phone] F: [phone] F: [phone] F: [phone] Physical Therapy Discharge Report Diagnosis: Pain in right shoulder Date of Surgery: n/a Date of Evaluation: 10/11/23 Date of Discharge: 01/15/24 Treatments to Date: 5 Cancellations to Date: 3 No Shows to Date: Discharge Status: Visit Non-compliance Discharge Summary: Pt was seen for PT from 10/11/23-11/01/23. Her last attended appointment was 11/01/23. She cancelled her last 2 scheduled appointments. She is being D/C from skilled PT as she has not attended or called to reschedule in > 30 days. Pt current level of function unknown at this time Electronically signed by: Judith Kerns, PT, DPT Please sign and return to therapist. Thank you for your referral.
== END 2024-01-15 10:44 | disposition home or self-care (01) ==
LOC: HO.PT 13:00
PROVIDERS: PCP Internal Medicine; Visit Provider Internal Medicine
DX: M25.511 Pain in right shoulder (principal)
CPT/HCPCS: 97110; 97140; 97162

== ENCOUNTER 2023-11-30 12:28 | Emergency (ER) | payer OTHER, SELFPAY ==
--- NOTE | ~2023-11-30 | CT_ITS ---
EXAMINATION: CT ABDOMEN AND PELVIS WITH CONTRAST CLINICAL INFORMATION: Pain wrapping around the back. History of gallbladder removal. COMPARISON: 07/09/2020 TECHNIQUE: Multidetector volumetric images were obtained from the superior aspect of the liver through the pubic symphysis following administration 85 mL of Omnipaque 350 intravenous contrast. Sagittal and coronal reformatted images were obtained on the technologist's workstation. Oral contrast: No This CT examination was performed using dose optimization techniques as appropriate, variously including the following: *Automated exposure control *Adjustment of mA and/or kV according to patient size (this includes techniques or standardized protocols for targeted exams where dose is matched to indication/reason for exam; i.e. extremities or head) *Use of iterative reconstruction technique DLP: 521 mGy-cm FINDINGS: LUNG BASES: The visualized lung bases are unremarkable. LIVER, GALLBLADDER, AND BILIARY TREE: The liver is normal in size, shape, and attenuation. No focal hepatic lesion or biliary ductal dilatation is present. Status post cholecystectomy. PANCREAS: Unremarkable. SPLEEN: Unremarkable. ADRENAL GLANDS: Unremarkable. KIDNEYS AND URETERS: The kidneys are normal in size, shape, and attenuation. No hydronephrosis, hydroureter, or calculi seen. There is a 0.8 cm cyst at the posterior aspect of the right upper pole, most consistent with a cyst. No recommended imaging follow-up. No perinephric stranding. BLADDER: Unremarkable. GASTROINTESTINAL TRACT: Stomach, small bowel, and colon are normal in caliber. No bowel wall thickening or surrounding inflammatory changes. No intraperitoneal free fluid or free air. Appendix is surgically absent. ABDOMINAL WALL: No significant hernia is appreciated. LYMPH NODES: Normal. VASCULAR: Atherosclerotic calcifications are present in the abdominal aorta and iliac arteries. No aneurysmal dilatation. PELVIC VISCERA: Uterus is surgically absent. No adnexal lesions. OSSEOUS STRUCTURES: Ughp-iy-vtsqdgss multilevel disc disease and facet arthropathy. No fracture or spondylolisthesis. 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 CT/CT abdomen pelvis w IV con IMPRESSION: 1. No acute intra-abdominal or intrapelvic abnormalities. 2. Cqvz-it-tmfpqvql multilevel degenerative spondylosis in the lumbar spine. Fleischner guidelines were followed.
[2023-11-30 12:39] VITALS: BP 161/80; PULSE 92; RESP 18; TEMP 36.7; O2SAT 98; BMI 32.1
--- NOTE | 2023-11-30 12:39 | ED.GENADULT ---
HPI - General Adult General Chief complaint: Abdominal Pain Stated complaint: high bp nausea vomiting Time Seen by Provider: 11/30/23 14:35 Source: patient and old records reviewed Mode of arrival: ambulatory Limitations: no limitations History of Present Illness ED Provider: GOSIA ASHLEY narrative: 63 yo female with PMH of HTN, HLD, DM, thalamic stroke, anxiety, depression here with c/o n/v upper abdominal pain starting yesterday after eating a oscar. She thinks part of it was bad. She notes her blood pressure and her sugars have been up and down. She feels weak with fatigue and overall not well. No travel, recent antibiotic use. Has not eaten today complaint: n,v weakness epigastric pain Onset (ago): day(s) (last night) Location: abdomen Radiation: back Severity: moderate Quality: stabbing and aching Pain Consistency: constant Relieving factors: none Exacerbating factors: eating Associated symptoms: loss of appetite, malaise and nausea/vomiting Treatments prior to arrival: none Related Data Home Medications ?Medication ?Instructions ?Recorded ?Confirmed fluoxetine 20 mg capsule 20 mg PO DAILY 11/12/20 08/23/23 lorazepam 0.5 mg tablet 0.5 mg PO DAILY PRN Anxiety 11/12/20 08/23/23 zolpidem 10 mg tablet 10 mg PO BEDTIME 11/12/20 08/23/23 Previous Rx's ?Medication ?Instructions ?Recorded BLOOD PRESSURE MONITOR #1 ea 11/26/20 diclofenac sodium 1 % topical gel 2 g topical QID 14 days #100 grams 07/26/21 (Arthritis Pain (diclofenac)) blood-glucose meter (BrandfolderTouch #1 ea 10/19/21 Ultra2 Meter kit) pen needle, diabetic 31 gauge x #100 ea 01/31/22 1/4 (Pen Needle) lancets (BrandfolderTouch UltraSoft #200 ea 06/19/22 Lancets) acetaminophen 325 mg capsule 650 mg (2 x 325 mg) PO Q6H PRN 11/07/22 (Tylenol) pain #45 caps losartan 50 mg tablet 50 mg PO BEDTIME #30 tabs 02/13/23 miconazole nitrate 100 mg vaginal 100 mg vaginal BEDTIME 7 days #7 ea 02/13/23 suppository (Miconazole-7) blood sugar diagnostic (OneTouch #100 ea 04/04/23 Ultra Test strips) cholecalciferol (vitamin D3) 50 50 mcg PO DAILY #90 tabs 04/04/23 mcg (2,000 unit) tablet famotidine 20 mg tablet 20 mg PO DAILY 14 days #14 tabs 05/28/23 acetaminophen 650 mg 650 mg PO Q12H PRN pain #30 tabs 08/02/23 tablet,extended release (Arthritis Pain Relief (acetaminophen) ER) nifedipine 30 mg tablet,extended 30 mg PO DAILY 30 days #30 tabs 08/22/23 release 24 hr atorvastatin 80 mg tablet 80 mg PO BEDTIME #30 tabs 09/13/23 clopidogrel 75 mg tablet (Plavix) 75 mg PO DAILY 30 days #30 tabs 09/13/23 cephalexin 500 mg capsule 500 mg PO BID 7 days #14 caps 10/23/23 glimepiride 4 mg tablet 4 mg PO QAM #30 tabs 10/31/23 pioglitazone 30 mg tablet 30 mg PO DAILY #90 tabs 10/31/23 insulin glargine 100 unit/mL (3 20 unit (0.2 mL) subcut BEDTIME #3 11/05/23 mL) subcutaneous pen (Lantus mL Solostar U-100 Insulin) dulaglutide 3 mg/0.5 mL 3 mg (0.5 mL) subcut QWEEK 4 weeks 11/06/23 subcutaneous pen injector #2 mL aspirin 81 mg chewable tablet 81 mg PO DAILY #30 tabs 11/14/23 gabapentin 400 mg capsule 400 mg PO BID #90 caps 11/14/23 Allergies Allergy/AdvReac Type Severity Reaction Status Date / Time ibuprofen [From Motrin] Allergy Mild STOMACH Verified 11/30/23 12:43 UPSET oxycodone [From Percocet] Allergy Mild ITCHING Verified 11/30/23 12:43 lactose [LACTOSE] Allergy Unknown ABD PAIN Verified 11/30/23 12:43 metformin AdvReac Unknown nausea, Verified 11/30/23 12:43 somnolence amlodipine AdvReac Swelling Verified 11/30/23 12:43 Review of Systems Review of Systems: Constitutional : No Weight loss, No Fever, No Chills ENT/Mouth : No sore throat, No Rhinorrhea Eyes: No Swelling, No Redness Cardiovascular : No Chest Pain, No SOB, NoEdema Respiratory : No Cough, No Sputum, No Wheezing Gastrointestinal : Positive Nausea, Positive Vomiting, no Diarrhea, positive abdominal Pain, No Hematochezia, No Melena Genitourinary : No Dysuria, No Urinary Frequency, No Hematuria, No Urgency Musculoskeletal : No joint pain, No Myalgias, No Joint Swelling Skin : No Skin Lesions, No rash Neuro : No Weakness, No Numbness, No Dizziness, No Headache All other systems reviewed and are negative. [facility] Past Medical History Attestation statement: The following information was validated with the patient. Source: old records reviewed Medical History Uncontrolled type 2 diabetes mellitus with hyperglycemia, with long-term current use of insulin Intracranial vascular stenosis Diabetes HTN (hypertension) CVA (cerebral vascular accident) Right thalamic stroke Obesity (BMI 30-39.9) Depression Anxiety Insomnia GERD without esophagitis Anemia, iron deficiency Lumbar degenerative disc disease Pure hypercholesterolemia Benign essential hypertension Diabetes mellitus Sciatic pain Fibromyalgia Surgical History History of surgery History of left salpingo-oophorectomy H/O bilateral breast reduction surgery History of carpal tunnel release History of appendectomy History of section History of hysterectomy Family History Family History Father Suicide Epilepsy Mother Poor high blood pressure control Diabetes Hypertension Daughter Spina bifida Brother Stroke Other Mental health problem Social History Social History Household Members: Significant Other Housing: Apartment Do you presently have visiting nurse or other home services: No Alcohol intake: never Patient Tobacco Use Status: Never used Tobacco e-Cigarette/Vaping Use: Never Used Second Hand Smoke Exposure: Yes Advance Directives: No Advance Directives Information Provided: Yes Do you have a plan to hurt others: No Plan service: No Current occupational status: disabled Cognitive needs: Yes (cane) Hearing needs: No Vision needs: Yes (glasses) Physical Exam ED Vital Signs: Vital Signs - 24 hr 11/30/23 12:39 11/30/23 14:00 Temperature 98.1 F 98.1 F Pulse Rate 92 94 Respiratory Rate 18 18 Blood Pressure 161/80 H 189/95 H Pulse Oximetry 98 98 Oxygen Delivery Method Room Air Room Air BMI result Body Mass Index 32.1 Appearance: Alert. Oriented X3. No acute distress. Eyes: Pupils equal, round and reactive to light. ENT: Pharynx normal. Neck: Normal inspection. Neck supple. CVS: Normal heart rate and rhythm. Pulses normal. Respiratory: No respiratory distress. Breath sounds normal. Abdomen: Soft and moderate epigastric ttp no rebound or guarding Skin: Skin warm and dry. Normal skin color. Normal skin turgor. Extremities: No lower extremity edema. No calf ttp Neuro: Oriented X 3. No motor deficit. No sensory deficit. Course Course Course Narrative: This is a Rapid Medical Exam performed in triage by Denisha Wray PA-C. Full HPI, ROS and PE to be performed by primary ED provider. 63 year-old F w/ PMHx DM, anxiety, fibromyalgia, CVA, GERD, anemia presenting to the ED c/o fatigue, abdominal sickness x3 days with nausea & vomiting & elevated BP & sugar. denies diarrhea, urinary sx PE: nontoxic appearing, ambulating w/steady gait. Plan: EKG, labs, UA Reevaluation(s) Reevaluation #1: signed out to Dr. Pineda pending CT scan Medications Administered Discontinued Medications Generic Name Dose Route Start Last Admin Trade Name Freq PRN Reason Stop Dose Admin Famotidine 20 mg 11/30/23 14:51 11/30/23 16:12 Famotidine/Pf 20 Mg/2 Ml Vial IVPUSH 11/30/23 14:52 20 mg ONCE ONE Administration Morphine Sulfate 4 mg 11/30/23 14:51 11/30/23 16:11 Morphine Sulfate 4 Mg/Ml Cartridge IVPUSH 11/30/23 14:52 4 mg ONCE ONE Administration Protocol Ondansetron HCl 4 mg 11/30/23 14:51 11/30/23 16:12 Ondansetron Hcl 4 Mg/2 Ml Vial IVPUSH 11/30/23 14:52 4 mg ONCE ONE Administration Medical Decision Making Medical Decision Making [facility] Narrative: 63 yo female with PMH of HTN, HLD, DM, thalamic stroke, anxiety, depression here with c/o n/v and upper abdominal pain after eating mangos at this time the patient denies travel, sick contacts, abx use will need basic labs, CT scan for pancreatitis, IVF, zofran and morphine for pain. Differential Diagnosis Differential Diagnoses: The differential diagnosis associated with the presentation includes gastritis, pancreatitis, viral syndrome Admission/Observation Consideration of admission/observation: Escalation of care including admission/observation considered signed out to Dr. Pineda pending CT scan Lab Data MDM Lab Attestation statement: I reviewed the patient's lab results. 11/30/23 13:15 11/30/23 13:15 Labs: Lab Results 11/30/23 11/30/23 Range/Units 13:15 15:12 WBC 12.7 H (4.8-10.8) X10*3/uL RBC 4.37 (4.20-5.50) X10*6/uL Hgb 12.3 (12.0-16.0) g/dl Hct 36.6 L (37.0-47.0) % MCV 83.8 (80.0-98.0) fL MCH 28.1 (27.0-33.0) pg MCHC 33.6 (31.0-35.0) g/dl RDW 12.3 (11.0-16.0) % Plt Count 452 H (160-400) X10*3/uL MPV 8.9 L (9.4-12.3) fL Immature Gran % (Auto) 0.4 (0.0-0.4) % Neut % (Auto) 71.0 (45-73) % Lymph % (Auto) 20.6 (20-40) % [place] % (Auto) 6.5 (2-11) % Eos % (Auto) 1.2 (0-4) % Baso % (Auto) 0.3 (0-2) % Lymph # (Auto) 2.6 (1.2-4.9) X10*3/uL [place] # (Auto) 0.8 (0.1-1.2) X10*3/uL Eos # (Auto) 0.2 (0.0-0.4) X10*3/uL Baso # (Auto) 0.0 (0.0-0.2) X10*3/uL Abs Immat Gran (auto) 0.05 H (0.00-0.03) X10*3/uL Absolute Neuts (auto) 9.0 H (2.0-8.3) x10*3/uL Absolute Nucleated RBC 0.000 (0.0-0.012) X10*3/uL Nucleated RBC % (auto) 0.0 (0.0-0.2) /100WBC Sodium 139 (135-145) mmol/L Potassium 3.9 (3.3-5.1) mmol/L Chloride 99 (96-108) mmol/L Carbon Dioxide 30 H (22-29) mmol/L Anion Gap 14 (12-20) BUN 15 (9-16) mg/dL Creatinine 1.21 (0.5-1.4) mg/dL Estim Creat Clear Calc 41.6 Estimated GFR 45 Random Glucose 195 H (60-115) mg/dL Calcium 10.0 (8.4-10.2) mg/dL Magnesium 1.7 (1.6-2.6) mg/dL Total Bilirubin 0.5 (0.0-1.0) mg/dL Direct Bilirubin 0.2 (0.0-0.5) mg/dL AST 25 (5-31) U/L ALT 20 (0-31) U/L Alkaline Phosphatase 106 (39-117) U/L Troponin I High Sens < 2.7 (<3.5-17.0) ng/L Total Protein 7.9 (6.5-8.0) g/dL Albumin 4.0 (3.5-5.0) g/dL Lipase 26 (8-78) U/L Beta-Hydroxybutyrate 0.19 (0.02-0.27) mmol/L Urine Color Yellow Urine Appearance Clear Urine pH 6.5 (5.0-9.0) Ur Specific [place] 1.020 (1.005-1.025) Urine Protein 300 (3+) H (Neg-Trace) mg/dL Urine Glucose (UA) Negative (Negative) mg/dL Urine Ketones Trace (Negative) mg/dL Urine Blood Negative (Negative) Urine Nitrite Negative (Negative) Ur Leukocyte Esterase Small (1+) H (Negative) Urine RBC 0-2 (0-2) /HPF Urine WBC 0-5 (0-5) /HPF Ur Squamous Epith Cells 3-5 (0-2) /HPF Urine Bacteria None Seen (None Seen) Hyaline Casts 6-10 (0-2) /LPF Influenza Type A (PCR) NEGATIVE (Negative) Influenza Type B (PCR) NEGATIVE (Negative) RSV RNA Qual (PCR) NEGATIVE (Negative) SARS-CoV-2 RNA (RT-PCR) NEGATIVE (Negative) Independent Interpretation I performed an independent interpretation of an: EKG and CT Scan Interpretation: Rate: 95 Rhythm: NSR [place]: left Normal P waves. Normal CARL. Normal QRS complex. ST T wave : flat t waves lateral leads no NISHA qTC: 467 prior studies: no acute ischemia The study has been interpreted contemporaneously by me. . External Record Review External record reviewed: Inpatient record Discharge Plan Discharge Clinical Impression: Nausea & vomiting Qualifiers: Vomiting type: unspecified Qualified Code(s): R11.2 - Nausea with vomiting, unspecified Abdominal pain Qualifiers: Abdominal location: epigastric Qualified Code(s): R10.13 - Epigastric pain Patient Disposition: Still a Patient Instructions: Acute Nausea and Vomiting (ED), Abdominal Pain (ED) Prescriptions: No Action diclofenac sodium [Arthritis Pain (diclofenac)] 1 % gel 2 g topical QID 14 Days Qty: 100 0RF Rx Instructions: apply to single elbow, wrist or hand; for hand includes palm/fingers/back of hand (DME) pen needle, diabetic [Pen Needle] 31 gauge x 1/4 needle See Rx Instructions .Route Qty: 100 3RF Rx Instructions: As directed daily (DME) OneTouch Ultra Test Strip See Rx Instructions .Route Qty: 100 12RF Rx Instructions: As directed - to test blood sugar TID cholecalciferol (vitamin D3) 50 mcg (2,000 unit) tablet 50 mcg PO DAILY Qty: 90 3RF nifedipine 30 mg tablet extended release 24hr 30 mg PO DAILY 30 Days Qty: 30 3RF Protocol: Hold for SBP< HOLD for SBP < : 90 atorvastatin 80 mg tablet 80 mg PO BEDTIME Qty: 30 3RF clopidogrel [Plavix] 75 mg tablet 75 mg PO DAILY 30 Days Qty: 30 3RF insulin glargine [Lantus Solostar U-100 Insulin] 100 unit/mL (3 mL) insulin pen 20 unit subcut BEDTIME Qty: 3 1RF dulaglutide 3 mg/0.5 mL pen injector 3 mg subcut QWEEK 28 Days Qty: 2 3RF aspirin 81 mg tablet,chewable 81 mg PO DAILY Qty: 30 3RF gabapentin 400 mg capsule 400 mg PO BID Qty: 90 1RF acetaminophen [Tylenol] 325 mg capsule 650 mg PO Q6H PRN (Reason: pain) Qty: 45 0RF fluoxetine 20 mg capsule 20 mg PO DAILY zolpidem 10 mg tablet 10 mg PO BEDTIME lorazepam 0.5 mg tablet 0.5 mg PO DAILY PRN (Reason: Anxiety) (DME) BLOOD PRESSURE MONITOR See Rx Instructions .Route .MEDSUPPLY Qty: 1 0RF Rx Instructions: As directed (DME) blood-glucose meter [[email or web address] Ultra2 Meter] Kit See Rx Instructions .Route Qty: 1 0RF Rx Instructions: As directed- To test blood sugar TID cephalexin 500 mg capsule 500 mg PO BID 7 Days Qty: 14 0RF (DME) lancets [BrandfolderTouch UltraSoft Lancets] Misc See Rx Instructions .Route Qty: 200 12RF Rx Instructions: As directed- To test blood sugar TID losartan 50 mg tablet 50 mg PO BEDTIME Qty: 30 3RF miconazole nitrate [Miconazole-7] 100 mg suppository 100 mg vaginal BEDTIME 7 Days Qty: 7 0RF famotidine 20 mg tablet 20 mg PO DAILY 14 Days Qty: 14 0RF acetaminophen [Arthritis Pain Relief (acetam)] 650 mg tablet extended release 650 mg PO Q12H PRN (Reason: pain) Qty: 30 0RF glimepiride 4 mg tablet 4 mg PO QAM Qty: 30 1RF pioglitazone 30 mg tablet 30 mg PO DAILY Qty: 90 3RF Print Language: Tristanian
--- NOTE | 2023-11-30 12:41 | ECG_ITS ---
Test Reason : weakness Blood Pressure : / mmHG Vent. Rate : 095 BPM Atrial Rate : 095 BPM P-R Int : 146 ms QRS Dur : 074 ms QT Int : 372 ms P-R-T Axes : 031 -08 -09 degrees QTc Int : 467 ms Normal sinus rhythm Minimal voltage criteria for LVH, may be normal variant ( R in aVL ) Inferior infarct , age undetermined Cannot rule out Anterior infarct , age undetermined Abnormal ECG When compared with ECG of 01-APR-2023 04:59, Inferior infarct is now Present Referred By: Denisha Wray Electronically Signed By:FAROOQ DAIGLE
[2023-11-30 13:22] LABS: MANUAL DIFF FLAG NO
[2023-11-30 13:24] LABS: Basophils Percent Auto 0.3 % (0-2); Eosinophils Absolute Auto 0.2 X10*3/uL (0.0-0.4); Eosinophils Percent Auto 1.2 % (0-4); Hematocrit 36.6 % (37.0-47.0); Hemoglobin 12.3 g/dl (12.0-16.0); Imm Gran Abs Auto 0.05 X10*3/uL (0.00-0.03); Imm Gran Pct Auto 0.4 % (0.0-0.4); Lymphocytes Absolute Auto 2.6 X10*3/uL (1.2-4.9); Lymphocytes Percent Auto 20.6 % (20-40); Mean Corpuscular HGB Conc 33.6 g/dl (31.0-35.0); Mean Corpuscular Hemoglobin 28.1 pg (27.0-33.0); Mean Corpuscular Volume 83.8 fL (80.0-98.0); Mean Platelet Volume 8.9 fL (9.4-12.3); Monocytes Absolute Auto 0.8 X10*3/uL (0.1-1.2); Monocytes Percent Auto 6.5 % (2-11); Platelet Count 452 X10*3/uL (160-400); Red Blood Count 4.37 X10*6/uL (4.20-5.50); Red Cell Distribution Width 12.3 % (11.0-16.0); White Blood Count 12.7 X10*3/uL (4.8-10.8)
[2023-11-30 13:48] LABS: Alanine Aminotransferase 20 U/L (0-31); Alkaline Phosphatase 106 U/L (39-117); Anion Gap 14 (12-20); Aspartate Amino Transferase 25 U/L (5-31); Bilirubin Direct 0.2 mg/dL (0.0-0.5); Bilirubin Total 0.5 mg/dL (0.0-1.0); Blood Urea Nitrogen 15 mg/dL (9-16); Carbon Dioxide 30 mmol/L (22-29); Chloride 99 mmol/L (96-108); Creatinine Clr Calc Pharmacy 41.6; Estimated Glomerular Filt Rate 45; Glucose Random 195 mg/dL (60-115); Lipase 26 U/L (8-78); Magnesium 1.7 mg/dL (1.6-2.6); Potassium 3.9 mmol/L (3.3-5.1); Sodium 139 mmol/L (135-145); Total Protein 7.9 g/dL (6.5-8.0)
[2023-11-30 14:00] VITALS: BP 189/95; PULSE 94; RESP 18; TEMP 36.7; O2SAT 98
[2023-11-30 14:02] LABS: Troponin-I High Sensitivity < 2.7 ng/L (<3.5-17.0)
[2023-11-30 14:08] LABS: Influenza A PCR NEGATIVE (Negative); Influenza B PCR NEGATIVE (Negative); Resp Syncy Virus RNA Qual PCR NEGATIVE (Negative); SARS COV2 PCR INHOUSE NEGATIVE (Negative)
[2023-11-30 14:23] LABS: Beta-Hydroxybutyrate 0.19 mmol/L (0.02-0.27)
[2023-11-30 15:24] LABS: Appearance Urine Clear; Color Urine Yellow; Glucose Urine UA Negative (Negative); Leukocyte Esterase Urine Small (1+) (Negative); Nitrite Urine Negative (Negative); PH 6.5 (5.0-9.0); UMIC TRIGGER UACC YES; Urine Blood Negative (Negative); Urine Ketones Trace mg/dL (Negative); Urine Protein 300 (3+) mg/dL (Neg-Trace)
[2023-11-30 15:34] LABS: Bacteria Urine None Seen (None Seen); RBC Urine 0-2 /HPF (0-2); UACC Culture Trigger YES; WBC Urine 0-5 /HPF (0-5)
[2023-11-30] MEDS: Morphine Sulfate 4 MG/ML CARTRIDGE IVPUSH (16:11)
[2023-11-30] MEDS: ondansetron HCL 4 MG/2 ML VIAL IVPUSH (16:12)
[2023-11-30] MEDS: Famotidine/PF 20 MG/2 ML VIAL IVPUSH (16:12)
[2023-11-30] MEDS: Lactated Ringers 1,000 ML 999 ML IV ×2 (16:31→16:51)
[2023-11-30 17:43] VITALS: BP 166/83; PULSE 93; RESP 18; TEMP 36.8; O2SAT 98
[2023-11-30 19:34] VITALS: BP 156/84; PULSE 86; RESP 17; O2SAT 95
[2023-11-30 20:47] LABS: C Reactive Protein 1.52 mg/dL (< or = 0.50)
[2023-11-30] MEDS: Sucralfate Oral Suspension 1 GM/10 ML ORAL.SUSP PO (21:51)
[2023-11-30 21:53] VITALS: BP 176/91; PULSE 89; RESP 16; TEMP 36.2; O2SAT 99
== END 2023-11-30 21:58 | disposition home or self-care (01) ==
PROVIDERS: Physician Assistant; Emergency Provider Emergency Medicine; PCP Internal Medicine
DX: R11.2 Nausea with vomiting, unspecified (principal); R10.13 Epigastric pain; Z03.818 Encounter for observation for suspected exposure to other biological agents ruled out; E11.9 Type 2 diabetes mellitus without complications; I10 Essential (primary) hypertension; E78.00 Pure hypercholesterolemia, unspecified; Z86.73 Personal history of transient ischemic attack (TIA), and cerebral infarction without residual deficits; Z79.4 Long term (current) use of insulin; Z79.85 Long-term (current) use of injectable non-insulin antidiabetic drugs; Z79.84 Long term (current) use of oral hypoglycemic drugs; Z79.82 Long term (current) use of aspirin; Z79.02 Long term (current) use of antithrombotics/antiplatelets; Z79.899 Other long term (current) drug therapy
CPT/HCPCS: 0241U; 36415; 74177; 80048; 80076; 81001; 82010; 83690; 83735; 84484; 85025; 86140; 87086; 87147; 93005; 96361; 96374; 96375; 99284; 99285; J2270; J2405; J7120

== ENCOUNTER 2023-12-14 10:24 | Outpatient (AMB) | payer OTHER, SELFPAY ==
--- NOTE | 2023-12-14 10:27 | MHC.OFFWIV ---
Intake Vital Signs 12/14/23 10:28 Height 4 ft 11 in Weight 158 lb BMI 31.9 BP 122/84 Blood Pressure Location Rt brachial Position Sitting Pulse 97 Pulse Source Pulse Oximeter Temp 98.3 F Temp Source Oral Pulse Oximetry (%) 98 Oxygen Delivery Method Room Air Intake Visit Reasons: EP-rt ear pain and swollen, rt throat pain Intake Note: Pt presents to the office today for c/o rt ear pain and right sided throat pain. Pt states this started 3 days ago. Patient Tobacco Use Status: Never used Tobacco Allergies ibuprofen [From Motrin] Allergy (Mild, Verified 12/14/23 10:31) STOMACH UPSET oxycodone [From Percocet] Allergy (Mild, Verified 12/14/23 10:31) ITCHING lactose [LACTOSE] Allergy (Unknown, Verified 12/14/23 10:31) ABD PAIN metformin Adverse Reaction (Unknown, Verified 12/14/23 10:31) nausea, somnolence amlodipine Adverse Reaction (Verified 12/14/23 10:31) Swelling HPI HPI Comments History of Present Illness Details Patient is a 63-year-old female complaining of right ear pain that radiates to her neck and her jaw for the past 3 days. She states if she tries to touch the outside of her ear it is also very tender. She also admits to a slight headache and a sore throat on the right side. She denies any fevers, sinus pain or head congestion. FORMERLY [facility] Medical History Uncontrolled type 2 diabetes mellitus with hyperglycemia, with long-term current use of insulin Intracranial vascular stenosis Diabetes HTN (hypertension) CVA (cerebral vascular accident) Right thalamic stroke Obesity (BMI 30-39.9) Depression Anxiety Insomnia GERD without esophagitis Anemia, iron deficiency Lumbar degenerative disc disease Pure hypercholesterolemia Benign essential hypertension Diabetes mellitus Sciatic pain Fibromyalgia Surgical History History of surgery History of left salpingo-oophorectomy H/O bilateral breast reduction surgery History of carpal tunnel release History of appendectomy History of section History of hysterectomy Family History Father Suicide Epilepsy Mother Poor high blood pressure control Diabetes Hypertension Daughter Spina bifida Brother Stroke Other Mental health problem Social History Household Members: Significant Other Housing: Apartment Do you presently have visiting nurse or other home services: No Alcohol intake: never Patient Tobacco Use Status: Never used Tobacco e-Cigarette/Vaping Use: Never Used Second Hand Smoke Exposure: Yes service: No Current occupational status: disabled Cognitive needs: Yes (cane) Hearing needs: No Vision needs: Yes (glasses) Review of Systems Const All systems reviewed & are unremarkable except as noted in HPI and below Physical Exam Vital Signs: Last Vital Signs Temp 98.3 F 12/14/23 10:28 Pulse 97 12/14/23 10:28 BP 122/84 12/14/23 10:28 Pulse Ox 98 12/14/23 10:28 Oxygen Delivery Method Room Air 12/14/23 10:28 BMI result Body Mass Index 31.9 Const General: cooperative, healthy appearing, comfortable and no acute distress Orientation/consciousness: patient oriented x3 HEENT Head: Yes normal to inspection, Yes No palpable skull fracture present and Yes normocephalic Ears: hearing grossly normal bilaterally, external ears normal, TM normal on the left, EAC's normal (Left side), mastoids normal (no TTP) bilaterally, Abnormal EAC present (Right side) erythema, edema and EAC tenderness and unable to visualize TM on the right General nose exam: Normal external nose present Face and sinus: Yes normal facial exam Mouth: Normal oral and palatal mucosa present Teeth and gingiva: dentition normal Throat: Yes posterior oropharynx abnormal (Erythematous) Eyes General: appearance normal, both eyes and all related structures Neck Neck: Yes normal visual inspection, Yes full ROM, Yes no lymphadenopathy, Yes no meningeal signs, Yes trachea midline and Yes supple Resp Effort & Inspection: normal respiratory effort and able to speak in complete sentences Skin General skin exam: no rashes or lesions noted Neuro General: patient oriented x3 and no meningeal signs Results AMB Rapid Strep AMB Rapid Strep Negative Last Edit by Ruth Lorenzo CMA on 12/14/23 10:50 Assessment & Plan Assessment & Plan (1) Otitis media: Code(s): H66.90 - Otitis media, unspecified, unspecified ear Qualifiers: Otitis media type: mucoid Chronicity: acute Laterality: right Qualified Code(s): H65.191 - Other acute nonsuppurative otitis media, right ear Plan: Difficult to see the left TM but what I can see did look infected. As we are headed into a holiday weekend, we will treat the patient for 5 days with amoxicillin. (2) Otitis externa: Code(s): H60.90 - Unspecified otitis externa, unspecified ear Qualifiers: Otitis externa type: diffuse Chronicity: acute Laterality: right Qualified Code(s): H60.311 - Diffuse otitis externa, right ear Plan: Sent drops to pharmacy Plan Rapid strep negative in office Orders: Orders AMB Rapid Strep Screen Today Z13.9 - Encounter for screening, unspecified Medications: New fnxcxxrv-cblfaatoj-QU 3.5-10,000-1 mg/mL-unit/mL-% 4 drps otic (ear) right Q8H 7 days 10 mL 0RF amoxicillin 875 mg PO Q12H 10 tabs 0RF Coding Level of Care Code Est Pt Level 3 (53084) Diagnoses Acute mucoid otitis media of right ear H65.191 Otitis media type: mucoid Chronicity: acute Laterality: right Acute diffuse otitis externa of right ear H60.311 Otitis externa type: diffuse Chronicity: acute Laterality: right
[2023-12-14 10:28] VITALS: BP 122/84; PULSE 97; TEMP 36.8; O2SAT 98; BMI 31.9
== END 2023-12-14 10:53 | disposition home or self-care (01) ==
PROVIDERS: PCP Internal Medicine; Visit Provider Physician Assistant
DX: H65.191 Other acute nonsuppurative otitis media, right ear (principal); H60.311 Diffuse otitis externa, right ear; J02.9 Acute pharyngitis, unspecified
CPT/HCPCS: 87880; 99213

== ENCOUNTER 2023-12-27 10:09 | Outpatient (REF) | payer OTHER, SELFPAY ==
[2023-12-27 10:30] LABS: MANUAL DIFF FLAG NO
[2023-12-27 11:06] LABS: Appearance Urine Clear; Color Urine Yellow; Glucose Urine UA 100 mg/dL (Negative); Leukocyte Esterase Urine Negative (Negative); Nitrite Urine Negative (Negative); PH 7.5 (5.0-9.0); UMIC TRIGGER UACC YES; Urine Blood Negative (Negative); Urine Ketones Negative (Negative); Urine Protein 100 (2+) mg/dL (Neg-Trace)
[2023-12-27 11:07] LABS: Estimated Average Glucose 229 mg/dL; Hemoglobin A1c % 9.6 % (<6.0)
[2023-12-27 11:12] LABS: Bacteria Urine None Seen (None Seen); Hyaline Casts Urine 0-2 /LPF (0-2); RBC Urine 0-2 /HPF (0-2); Squamous Epithelial Cell Urine 0-2 /HPF (0-2); WBC Urine 0-5 /HPF (0-5)
[2023-12-27 11:16] LABS: Basophils Percent Auto 0.3 % (0-2); Eosinophils Absolute Auto 0.1 X10*3/uL (0.0-0.4); Hematocrit 35.4 % (37.0-47.0); Hemoglobin 11.9 g/dl (12.0-16.0); Imm Gran Abs Auto 0.07 X10*3/uL (0.00-0.03); Imm Gran Pct Auto 0.5 % (0.0-0.4); Lymphocytes Absolute Auto 1.7 X10*3/uL (1.2-4.9); Lymphocytes Percent Auto 12.3 % (20-40); Mean Corpuscular HGB Conc 33.6 g/dl (31.0-35.0); Mean Corpuscular Hemoglobin 27.9 pg (27.0-33.0); Mean Corpuscular Volume 83.1 fL (80.0-98.0); Mean Platelet Volume 9.2 fL (9.4-12.3); Monocytes Absolute Auto 0.9 X10*3/uL (0.1-1.2); Monocytes Percent Auto 6.7 % (2-11); Neutrophils Absolute Auto 10.8 x10*3/uL (2.0-8.3); Neutrophils Percent Auto 79.2 % (45-73); Platelet Count 433 X10*3/uL (160-400); Red Blood Count 4.26 X10*6/uL (4.20-5.50); Red Cell Distribution Width 12.2 % (11.0-16.0); White Blood Count 13.6 X10*3/uL (4.8-10.8)
[2023-12-27 11:42] LABS: Alanine Aminotransferase 24 U/L (0-31); Albumin Level 4.1 g/dL (3.5-5.0); Alkaline Phosphatase 110 U/L (39-117); Anion Gap 15 (12-20); Aspartate Amino Transferase 18 U/L (5-31); Bilirubin Total 0.4 mg/dL (0.0-1.0); Blood Urea Nitrogen 13 mg/dL (9-16); Calcium 9.8 mg/dL (8.4-10.2); Carbon Dioxide 29 mmol/L (22-29); Chloride 100 mmol/L (96-108); Cholesterol 201 mg/dL (<200); Estimated Glomerular Filt Rate 57; Glucose Fasting 211 mg/dL (60-99); HDL Cholesterol 41 mg/dL (>40); LDL Cholesterol Calculated 126 mg/dL (<100); Potassium 3.7 mmol/L (3.3-5.1); Sodium 140 mmol/L (135-145); TSH reflex Free T4 2.06 uIU/mL (0.32-4.0); Total Protein 8.1 g/dL (6.5-8.0); Triglycerides 170 mg/dL (<150); Vitamin D 25-OH Total 31.6 ng/mL (>30)
[2023-12-27 11:48] LABS: Creatinine Urine 66.56 mg/dL
[2023-12-27 12:16] LABS: Vitamin B12 557 pg/mL (200-900)
[2023-12-27 12:24] LABS: Microalbum/Creatinine Ratio Ur 875.9 ug/mg cr (<30)
== END 2023-12-27 10:10 | disposition home or self-care (01) ==
LOC: HO.LAB 10:09
PROVIDERS: PCP Internal Medicine; Visit Provider Internal Medicine
DX: Z13.89 Encounter for screening for other disorder (principal)
CPT/HCPCS: 36415; 80053; 80061; 81001; 81003; 82043; 82306; 82570; 82607; 82746; 83036; 84443; 85025

== ENCOUNTER 2023-12-27 10:59 | Emergency (ER) | payer OTHER, SELFPAY ==
--- NOTE | 2023-12-27 | ECG_ITS ---
Test Reason : flu like symptoms Blood Pressure : / mmHG Vent. Rate : 109 BPM Atrial Rate : 109 BPM P-R Int : 144 ms QRS Dur : 078 ms QT Int : 350 ms P-R-T Axes : 026 -08 -07 degrees QTc Int : 471 ms Sinus tachycardia Minimal voltage criteria for LVH, may be normal variant ( R in aVL ) Borderline ECG When compared with ECG of 30-NOV-2023 13:01, No significant change was found Referred By: Generic ED Physician Electronically Signed By:FAROOQ DAIGLE
--- NOTE | ~2023-12-27 | XR_ITS ---
EXAMINATION: XR CHEST CLINICAL INFORMATION: Shortness of breath. Cough. COMPARISON: Chest radiograph dated April 01, 2023. TECHNIQUE: 2 views of the chest were obtained. FINDINGS: The heart is normal in size. The lungs are clear. Pleural spaces are clear. No pneumothorax. There are cholecystectomy clips. No acute osseous abnormality. XR/XR chest 2V IMPRESSION: No acute cardiopulmonary disease. Electronically signed by: Oral Duggan DO 12/27/2023 02:26 PM EDT
[2023-12-27 11:39] VITALS: BP 231/115; PULSE 111; RESP 20; TEMP 38.2; O2SAT 98; BMI 31.4
[2023-12-27 12:16] LABS: MANUAL DIFF FLAG NO
[2023-12-27 12:18] LABS: Basophils Absolute Auto 0.1 X10*3/uL (0.0-0.2); Basophils Percent Auto 0.4 % (0-2); Eosinophils Absolute Auto 0.1 X10*3/uL (0.0-0.4); Eosinophils Percent Auto 0.6 % (0-4); Hematocrit 35.4 % (37.0-47.0); Hemoglobin 12.3 g/dl (12.0-16.0); Imm Gran Abs Auto 0.06 X10*3/uL (0.00-0.03); Imm Gran Pct Auto 0.4 % (0.0-0.4); Lymphocytes Absolute Auto 1.6 X10*3/uL (1.2-4.9); Lymphocytes Percent Auto 10.1 % (20-40); Mean Corpuscular HGB Conc 34.7 g/dl (31.0-35.0); Mean Corpuscular Hemoglobin 28.3 pg (27.0-33.0); Mean Corpuscular Volume 81.6 fL (80.0-98.0); Mean Platelet Volume 8.9 fL (9.4-12.3); Monocytes Absolute Auto 1.1 X10*3/uL (0.1-1.2); Monocytes Percent Auto 6.7 % (2-11); Neutrophils Absolute Auto 12.9 x10*3/uL (2.0-8.3); Neutrophils Percent Auto 81.8 % (45-73); Platelet Count 416 X10*3/uL (160-400); Red Blood Count 4.34 X10*6/uL (4.20-5.50); Red Cell Distribution Width 12.1 % (11.0-16.0); White Blood Count 15.8 X10*3/uL (4.8-10.8)
[2023-12-27 12:28] LABS: IDNOW Serial# 08D9AD1C; Strep A Nucleic Acid Negative (Negative)
[2023-12-27 12:32] LABS: Alanine Aminotransferase 24 U/L (0-31); Albumin Level 4.1 g/dL (3.5-5.0); Alkaline Phosphatase 110 U/L (39-117); Anion Gap 15 (12-20); Aspartate Amino Transferase 18 U/L (5-31); Bilirubin Total 0.4 mg/dL (0.0-1.0); Blood Urea Nitrogen 12 mg/dL (9-16); Calcium 9.8 mg/dL (8.4-10.2); Carbon Dioxide 27 mmol/L (22-29); Chloride 99 mmol/L (96-108); Creatinine Clr Calc Pharmacy 51.9; Estimated Glomerular Filt Rate 59; Glucose Random 226 mg/dL (60-115); Potassium 3.9 mmol/L (3.3-5.1); Sodium 137 mmol/L (135-145); Total Protein 8.1 g/dL (6.5-8.0)
[2023-12-27 12:56] LABS: Influenza A PCR NEGATIVE (Negative); Influenza B PCR NEGATIVE (Negative); Resp Syncy Virus RNA Qual PCR NEGATIVE (Negative); SARS COV2 PCR INHOUSE POSITIVE (Negative)
--- NOTE | 2023-12-27 13:54 | ED_ITS ---
HPI - General Adult General Chief complaint: Upper Respiratory Symptoms Stated complaint: Flu symptoms Time Seen by Provider: 12/27/23 13:27 Source: patient Mode of arrival: ambulatory Limitations: no limitations History of Present Illness ED Provider: Jesus ASHLEY narrative: Patient is a 63-year-old female with history of hypertension, diabetes, CVA, anemia, GERD, fibromyalgia presenting to the emergency department from PCP office with complaint of fever. She states that she was with her friend on Sunday all day in a class and towards the end of the day he began to complain of flu-like symptoms. She states that yesterday she began to develop some mild body aches which were worse when she woke today. Patient states that she was fasting overnight for blood work, and had an appointment with PCP this morning, did not take her blood pressure medication this morning due to fasting. When she arrived to her PCP appointment, she was noted to be febrile and tachycardic and was advised that she would be unable to be seen in the office and was directed to the emergency department. She denies headache or vision changes. Denies chest pain, shortness of breath, palpitations. MD complaint: Fever Onset (ago): hour(s) Treatments prior to arrival: none Related Data Home Medications ?Medication ?Instructions ?Recorded ?Confirmed fluoxetine 20 mg capsule 20 mg PO DAILY 11/12/20 08/23/23 lorazepam 0.5 mg tablet 0.5 mg PO DAILY PRN Anxiety 11/12/20 08/23/23 zolpidem 10 mg tablet 10 mg PO BEDTIME 11/12/20 08/23/23 Previous Rx's ?Medication ?Instructions ?Recorded BLOOD PRESSURE MONITOR #1 ea 11/26/20 diclofenac sodium 1 % topical gel 2 g topical QID 14 days #100 grams 07/26/21 (Arthritis Pain (diclofenac)) blood-glucose meter ([employer]Touch #1 ea 10/19/21 Ultra2 Meter kit) pen needle, diabetic 31 gauge x #100 ea 01/31/2204/19 (Pen Needle) lancets ([employer]Touch UltraSoft #200 ea 06/19/22 Lancets) acetaminophen 325 mg capsule 650 mg (2 x 325 mg) PO Q6H PRN 11/07/22 (Tylenol) pain #45 caps losartan 50 mg tablet 50 mg PO BEDTIME #30 tabs 02/13/23 miconazole nitrate 100 mg vaginal 100 mg vaginal BEDTIME 7 days #7 ea 02/13/23 suppository (Miconazole-7) blood sugar diagnostic (OneTouch #100 ea 04/04/23 Ultra Test strips) cholecalciferol (vitamin D3) 50 50 mcg PO DAILY #90 tabs 04/04/23 mcg (2,000 unit) tablet famotidine 20 mg tablet 20 mg PO DAILY 14 days #14 tabs 05/28/23 acetaminophen 650 mg 650 mg PO Q12H PRN pain #30 tabs 08/02/23 tablet,extended release (Arthritis Pain Relief (acetaminophen) ER) atorvastatin 80 mg tablet 80 mg PO BEDTIME #30 tabs 09/13/23 clopidogrel 75 mg tablet (Plavix) 75 mg PO DAILY 30 days #30 tabs 09/13/23 glimepiride 4 mg tablet 4 mg PO QAM #30 tabs 10/31/23 pioglitazone 30 mg tablet 30 mg PO DAILY #90 tabs 10/31/23 insulin glargine 100 unit/mL (3 20 unit (0.2 mL) subcut BEDTIME #3 11/05/23 mL) subcutaneous pen (Lantus mL Solostar U-100 Insulin) dulaglutide 3 mg/0.5 mL 3 mg (0.5 mL) subcut QWEEK 4 weeks 11/06/23 subcutaneous pen injector #2 mL aspirin 81 mg chewable tablet 81 mg PO DAILY #30 tabs 11/14/23 gabapentin 400 mg capsule 400 mg PO BID #90 caps 11/14/23 omeprazole 40 mg capsule,delayed 40 mg PO DAILY 30 days #30 caps 11/30/23 release nifedipine 30 mg tablet,extended 30 mg PO DAILY 30 days #30 tabs 12/11/23 release 24 hr amoxicillin 875 mg tablet 875 mg PO Q12H #10 tabs 12/14/23 wbvbwmgo-vowldicbe-yshkoolab 3.5 4 drp otic (ear) right Q8H 7 days 12/14/23 mg-10,000 unit/mL-1 % ear #10 mL drops,susp Allergies Allergy/AdvReac Type Severity Reaction Status Date / Time ibuprofen [From Motrin] Allergy Mild STOMACH Verified 12/27/23 11:42 UPSET oxycodone [From Percocet] Allergy Mild ITCHING Verified 12/27/23 11:42 lactose [LACTOSE] Allergy Unknown ABD PAIN Verified 12/27/23 11:42 metformin AdvReac Unknown nausea, Verified 12/27/23 11:42 somnolence amlodipine AdvReac Swelling Verified 12/27/23 11:42 Review of Systems 2 Review of Systems: As per HPI. Yes all other systems are reviewed and are negative Constitutional: Constitutional: Reports as per HPI [facility] Past Medical History Medical History Uncontrolled type 2 diabetes mellitus with hyperglycemia, with long-term current use of insulin Intracranial vascular stenosis Diabetes HTN (hypertension) CVA (cerebral vascular accident) Right thalamic stroke Obesity (BMI 30-39.9) Depression Anxiety Insomnia GERD without esophagitis Anemia, iron deficiency Lumbar degenerative disc disease Pure hypercholesterolemia Benign essential hypertension Diabetes mellitus Sciatic pain Fibromyalgia Surgical History History of surgery History of left salpingo-oophorectomy H/O bilateral breast reduction surgery History of carpal tunnel release History of appendectomy History of section History of hysterectomy Family History Family History Father Suicide Epilepsy Mother Poor high blood pressure control Diabetes Hypertension Daughter Spina bifida Brother Stroke Other Mental health problem Social History Social History Household Members: Significant Other Housing: Apartment Do you presently have visiting nurse or other home services: No Alcohol intake: never Patient Tobacco Use Status: Never used Tobacco e-Cigarette/Vaping Use: Never Used Second Hand Smoke Exposure: Yes Advance Directives: No Advance Directives Information Provided: Yes Do you have a plan to hurt others: No Plan service: No Current occupational status: disabled Cognitive needs: Yes (cane) Hearing needs: No Vision needs: Yes (glasses) Physical Exam ED Vital Signs: Vital Signs - 24 hr 12/27/23 11:39 12/27/23 14:25 Temperature 100.8 F H 101.2 F H Pulse Rate 111 H 106 H Respiratory Rate 20 18 Blood Pressure 231/115 H 179/78 H Pulse Oximetry 98 97 Oxygen Delivery Method Room Air Room Air BMI result Body Mass Index 31.4 Vital signs have been reviewed and appear to be correct. Blood pressure hypertensive. Heart rate mildly tachycardic. Respiratory rate normal. Temperature febrile. Oxygen saturation normal. Const General: cooperative, healthy appearing and no acute distress Orientation/consciousness: oriented to person, oriented to place, oriented to time and patient oriented x3 Limitations: no limitations HENMT Head: Yes normocephalic and Yes atraumatic Ears: external ears normal General nose exam: Normal external nose present Face and sinus: Yes face symmetric Mouth: oropharynx normal and moist mucous membranes Throat: Yes uvula midline Eyes Pupils: Equal, round and reactive pupils present Neck Neck: Yes normal visual inspection and Yes supple Resp Effort & Inspection: normal respiratory effort and able to speak in complete sentences Auscultation: clear to auscultation bilaterally Cardio Rate: regular rate Rhythm: regular rhythm Heart sounds: S1 normal heart sound present and S2 normal heart sound present GI Palpation (GI): Soft to palpation and nontender Auscultation: normoactive bowel sounds General: Yes no CVA tenderness Back/Spine/Pelvis Back: no CVA tenderness Skin General skin exam: elasticity normal and turgor normal Neuro General: oriented to person, oriented to place, oriented to time, patient oriented x3, moves all extremities, no focal motor deficits and CN's II-XI intact bilaterally Cranial nerves: Yes Equal, round and reactive pupils present Cognition (Neuro): normal cognition Extrem General: Yes full ROM, Yes no pedal edema and Yes no calf tenderness Psych Mental Status: mental status grossly normal Affect: normal affect Thought process: Normal thought process present Medications Administered Discontinued Medications Generic Name Dose Route Start Last Admin Trade Name Freq PRN Reason Stop Dose Admin Acetaminophen 975 mg 12/27/23 14:27 12/27/23 14:56 Acetaminophen 325 Mg Tablet PO 12/27/23 14:28 975 mg ONCE ONE Administration Nifedipine 30 mg 12/27/23 14:17 12/27/23 14:57 Nifedipine Er 30 Mg Tab.Er.24 PO 12/27/23 14:18 30 mg ONCE ONE Administration Protocol Medical Decision Making Medical Decision Making [facility] Narrative: Patient is a 63-year-old female with history of hypertension, diabetes, CVA, anemia, GERD, fibromyalgia presenting to the emergency department from PCP office with complaint of fever. On exam patient is awake, A+Ox3, hypertensive likely due to skipping blood pressure medication this morning, mildly tachycardic, febrile, normal neurological exam without focal deficits, physical exam findings as above. Given reported symptoms and physical exam findings, initial differential includes viral illness, COVID, flu, hypertensive urgency. Unlikely ACS. Viral serology positive for Covid. Labs notable for leukocytosis likely due to Covid infection, hyperglycemia without evidence of DKA or HHNS. X-ray chest notable for no evidence pneumonia. My interpretation is in agreement with the radiologist's interpretation. EKG shows sinus tachycardia, no significant changes from prior, likely due to COVID infection. Patient medicated with regular doses of nifedipine in the emergency department. Advised to contact PCP to discuss treatment with antiviral medication. Instructed patient to check BP to ensure it returns to normal, follow-up with PCP. Return precautions discussed at bedside. Patient verbalized understanding of and agreement plan. Differential Diagnosis Differential Diagnoses: The differential diagnosis associated with the presentation includes As per [facility]. Admission/Observation Consideration of admission/observation: Escalation of care including admission/observation considered Patient would have been admitted to the hospital had their work up had any findings where hospital admission was appropriate and their clinical presentation warranted hospital admission. Lab Data [facility] Lab Attestation statement: I reviewed the patient's lab results. As per MDM. 12/27/23 12:12 12/27/23 12:12 Labs: Lab Results 12/27/23 Range/Units 12:12 WBC 15.8 H (4.8-10.8) X10*3/uL RBC 4.34 (4.20-5.50) X10*6/uL Hgb 12.3 (12.0-16.0) g/dl Hct 35.4 L (37.0-47.0) % MCV 81.6 (80.0-98.0) fL MCH 28.3 (27.0-33.0) pg MCHC 34.7 (31.0-35.0) g/dl RDW 12.1 (11.0-16.0) % Plt Count 416 H (160-400) X10*3/uL MPV 8.9 L (9.4-12.3) fL Immature Gran % (Auto) 0.4 (0.0-0.4) % Neut % (Auto) 81.8 H (45-73) % Lymph % (Auto) 10.1 L (20-40) % Dickinson % (Auto) 6.7 (2-11) % Eos % (Auto) 0.6 (0-4) % Baso % (Auto) 0.4 (0-2) % Lymph # (Auto) 1.6 (1.2-4.9) X10*3/uL Dickinson # (Auto) 1.1 (0.1-1.2) X10*3/uL Eos # (Auto) 0.1 (0.0-0.4) X10*3/uL Baso # (Auto) 0.1 (0.0-0.2) X10*3/uL Abs Immat Gran (auto) 0.06 H (0.00-0.03) X10*3/uL Absolute Neuts (auto) 12.9 H (2.0-8.3) x10*3/uL Absolute Nucleated RBC 0.000 (0.0-0.012) X10*3/uL Nucleated RBC % (auto) 0.0 (0.0-0.2) /100WBC Sodium 137 (135-145) mmol/L Potassium 3.9 (3.3-5.1) mmol/L Chloride 99 (96-108) mmol/L Carbon Dioxide 27 (22-29) mmol/L Anion Gap 15 (12-20) BUN 12 (9-16) mg/dL Creatinine 0.96 (0.5-1.4) mg/dL Estim Creat Clear Calc 51.9 Estimated GFR 59 Random Glucose 226 H (60-115) mg/dL Calcium 9.8 (8.4-10.2) mg/dL Total Bilirubin 0.4 (0.0-1.0) mg/dL AST 18 (5-31) U/L ALT 24 (0-31) U/L Alkaline Phosphatase 110 (39-117) U/L Total Protein 8.1 H (6.5-8.0) g/dL Albumin 4.1 (3.5-5.0) g/dL Influenza Type A (PCR) NEGATIVE (Negative) Influenza Type B (PCR) NEGATIVE (Negative) RSV RNA Qual (PCR) NEGATIVE (Negative) SARS-CoV-2 RNA (RT-PCR) POSITIVE A (Negative) S. pyogenes GrpA LOYD Negative (Negative) Independent Interpretation I performed an independent interpretation of an: EKG (Sinus tachycardia, rate 109 beats per minute, normal ME interval and QTC, no significant change from prior) and Plain X-Ray Interpretation: No evidence of pneumonia on chest x-ray Radiology Impression Discussion of test interpretation with radiology: I have reviewed the radiologist's reading. Radiologist Impression: XR/XR chest 2V IMPRESSION: No acute cardiopulmonary disease. External Record Review External record reviewed: Inpatient record, Office record and Outpatient record Prescription Management I considered prescription management with: Antiviral Discharge Plan Discharge Clinical Impression: COVID-19, HTN (hypertension) Patient Disposition: Home, Self-Care Instructions: Hypertension (ED), COVID-19 (Coronavirus Disease 2019) (ED) Additional Instructions: You were evaluated in the emergency department today for fever. Your Covid test was positive. If you are interested in treatment with antiviral medication, contact your primary care provider to discuss whether this is the right option for you. Your blood pressure was elevated in the emergency department which is likely because you did not take your blood pressure medication this morning. Recheck your blood pressure tonight or tomorrow morning or follow up with your PCP to ensure it returns to normal. We recommend that you take 600 mg of ibuprofen or 650 mg of Tylenol every 6 hours as needed for fever or discomfort. Be sure to get plenty of rest and drink plenty of fluids. Return to the emergency department with worsening shortness of breath, chest pain, fever that does not improve with Tylenol or ibuprofen, persistent vomiting, or any other concerning symptoms. You should follow-up with your primary care provider. Prescriptions: No Action diclofenac sodium [Arthritis Pain (diclofenac)] 1 % gel 2 g topical QID 14 Days Qty: 100 0RF Rx Instructions: apply to single elbow, wrist or hand; for hand includes palm/fingers/back of hand (DME) pen needle, diabetic [Pen Needle] 31 gauge x 1/4 needle See Rx Instructions .Route Qty: 100 3RF Rx Instructions: As directed daily (DME) OneTouch Ultra Test Strip See Rx Instructions .Route Qty: 100 12RF Rx Instructions: As directed - to test blood sugar TID cholecalciferol (vitamin D3) 50 mcg (2,000 unit) tablet 50 mcg PO DAILY Qty: 90 3RF atorvastatin 80 mg tablet 80 mg PO BEDTIME Qty: 30 3RF clopidogrel [Plavix] 75 mg tablet 75 mg PO DAILY 30 Days Qty: 30 3RF insulin glargine [Lantus Solostar U-100 Insulin] 100 unit/mL (3 mL) insulin pen 20 unit subcut BEDTIME Qty: 3 1RF dulaglutide 3 mg/0.5 mL pen injector 3 mg subcut QWEEK 28 Days Qty: 2 3RF aspirin 81 mg tablet,chewable 81 mg PO DAILY Qty: 30 3RF gabapentin 400 mg capsule 400 mg PO BID Qty: 90 1RF nifedipine 30 mg tablet extended release 24hr 30 mg PO DAILY 30 Days Qty: 30 0RF Protocol: Hold for SBP< HOLD for SBP < : 90 acetaminophen [Tylenol] 325 mg capsule 650 mg PO Q6H PRN (Reason: pain) Qty: 45 0RF omeprazole 40 mg capsule,delayed release(DR/EC) 40 mg PO DAILY 30 Days Qty: 30 0RF fluoxetine 20 mg capsule 20 mg PO DAILY zolpidem 10 mg tablet 10 mg PO BEDTIME lorazepam 0.5 mg tablet 0.5 mg PO DAILY PRN (Reason: Anxiety) (DME) BLOOD PRESSURE MONITOR See Rx Instructions .Route .MEDSUPPLY Qty: 1 0RF Rx Instructions: As directed (DME) blood-glucose meter [OneTouch Ultra2 Meter] Kit See Rx Instructions .Route Qty: 1 0RF Rx Instructions: As directed- To test blood sugar TID (DME) lancets [OneTouch UltraSoft Lancets] Misc See Rx Instructions .Route Qty: 200 12RF Rx Instructions: As directed- To test blood sugar TID losartan 50 mg tablet 50 mg PO BEDTIME Qty: 30 3RF miconazole nitrate [Miconazole-7] 100 mg suppository 100 mg vaginal BEDTIME 7 Days Qty: 7 0RF famotidine 20 mg tablet 20 mg PO DAILY 14 Days Qty: 14 0RF acetaminophen [Arthritis Pain Relief (acetam)] 650 mg tablet extended release 650 mg PO Q12H PRN (Reason: pain) Qty: 30 0RF rhjpaxxd-cpbnyyllc-GH 3.5-10,000-1 mg/mL-unit/mL-% drops,suspension 4 drp otic (ear) right Q8H 7 Days Qty: 10 0RF amoxicillin 875 mg tablet 875 mg PO Q12H Qty: 10 0RF glimepiride 4 mg tablet 4 mg PO QAM Qty: 30 1RF pioglitazone 30 mg tablet 30 mg PO DAILY Qty: 90 3RF Print Language: Spanish
[2023-12-27 14:25] VITALS: BP 179/78; PULSE 106; RESP 18; TEMP 38.4; O2SAT 97
[2023-12-27] MEDS: Acetaminophen 325 MG TABLET 975 MG PO (14:56)
[2023-12-27] MEDS: NIFEdipine ER 30 MG TAB.ER.24 PO (14:57)
[2023-12-27 15:36] VITALS: BP 179/78; PULSE 106; RESP 18; TEMP 38.4; O2SAT 97
== END 2023-12-27 15:37 | disposition home or self-care (01) ==
PROVIDERS: Emergency Provider Emergency Medicine; PCP Internal Medicine
DX: U07.1 COVID-19 (principal); I10 Essential (primary) hypertension; R00.0 Tachycardia, unspecified; R50.9 Fever, unspecified; Z86.73 Personal history of transient ischemic attack (TIA), and cerebral infarction without residual deficits; Z79.899 Other long term (current) drug therapy
CPT/HCPCS: 0241U; 36415; 71046; 80053; 80061; 81001; 82043; 82306; 82570; 82607; 82746; 83036; 84443; 85025; 87651; 93005; 99283; 99284

== ENCOUNTER 2024-01-04 12:38 | Outpatient (AMB) | payer OTHER, SELFPAY ==
--- NOTE | 2024-01-04 12:38 | MHC.PC.OV ---
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: No Accompanied by: Self / Same As Patient Allergies ibuprofen [From Motrin] Allergy (Mild, Verified 01/04/24 12:54) STOMACH UPSET oxycodone [From Percocet] Allergy (Mild, Verified 01/04/24 12:54) ITCHING lactose [LACTOSE] Allergy (Unknown, Verified 01/04/24 12:54) ABD PAIN metformin Adverse Reaction (Unknown, Verified 01/04/24 12:54) nausea, somnolence amlodipine Adverse Reaction (Verified 01/04/24 12:54) Swelling Medication List - Last Reconciled 01/04/24 by Michael Peoples MD acetaminophen (Tylenol) 650 mg (2 x 325 mg) PO Q6H PRN acetaminophen ER (Arthritis Pain Relief (acetaminophen) ER) 650 mg PO Q12H PRN amoxicillin 875 mg PO Q12H aspirin 81 mg PO DAILY atorvastatin 80 mg PO BEDTIME [BLOOD PRESSURE MONITOR As directed] blood sugar diagnostic ([employer] Ultra Test strips) As directed - to test blood sugar TID blood-glucose meter ([employer] Ultra2 Meter kit) As directed- To test blood sugar TID cholecalciferol (vitamin D3) 50 mcg PO DAILY clopidogrel (Plavix) 75 mg PO DAILY 30 days diclofenac sodium 1% (Arthritis Pain (diclofenac)) 2 grams topical QID 14 days dulaglutide 3 mg (0.5 mL) subcut QWEEK 4 weeks famotidine 20 mg PO DAILY 14 days fluoxetine 20 mg PO DAILY gabapentin 400 mg PO BID glimepiride 4 mg PO QAM insulin glargine (Lantus Solostar U-100 Insulin) 20 units (0.2 mL) subcut BEDTIME lancets ([employer] UltraSoft Lancets) As directed- To test blood sugar TID lorazepam 0.5 mg PO DAILY PRN losartan 50 mg PO BEDTIME miconazole nitrate (Miconazole-7) 100 mg vaginal BEDTIME 7 days cxkdxwat-vnfoetfru-FM 3.5-10,000-1 mg/mL-unit/mL-% 4 drps otic (ear) right Q8H 7 days nifedipine ER 30 mg See Protocol PO DAILY 30 days omeprazole 40 mg PO DAILY 30 days pen needle, diabetic (Pen Needle) As directed daily pioglitazone 30 mg PO DAILY zolpidem 10 mg PO BEDTIME Tobacco use date assessed: 01/04/24 Dental Screening Dental Screen Date: 01/04/24 Did you have a dental visit in the last 12 months?: Yes Did you have a dental problem in the last 6 months where you did not have access to dental care?: No Was dental information given to patient?: Patient has dentist HPI Covid symptoms keeps testing positive HPI Details Patient's follow up visit / consultation today is done over video conference (iPhone/iPad/Google Krey[employer]/youbeQ - [employer]) - this is a TELEHEALTH visit Patient's current medications have been reviewed and verified with patient and/or caregiver/proxy and have been updated accordingly in the medication list Patient states that she tested positive for COVID last week on 12/27/2023 and had to cancel her follow up appt with me Recalls that her symptoms started the day before on 12/26/23 and mostly include mild fever, sore throat and nasal congestion with on and off non-productive coughing States that she just took some OTC meds for symptomatic treatment and is currently feeling better although she went and tested herself again for COVID a couple of days ago and her test still came back positive and is wondering how long it should take for her to test negative States that she feels okay otherwise and would like to know how her follow up labs done last week came out [facility] Medical History Uncontrolled type 2 diabetes mellitus with hyperglycemia, with long-term current use of insulin Intracranial vascular stenosis Diabetes HTN (hypertension) CVA (cerebral vascular accident) Right thalamic stroke Obesity (BMI 30-39.9) Depression Anxiety Insomnia GERD without esophagitis Anemia, iron deficiency Lumbar degenerative disc disease Pure hypercholesterolemia Benign essential hypertension Diabetes mellitus Sciatic pain Fibromyalgia Surgical History History of surgery History of left salpingo-oophorectomy H/O bilateral breast reduction surgery History of carpal tunnel release History of appendectomy History of section History of hysterectomy Family History Father Suicide Epilepsy Mother Poor high blood pressure control Diabetes Hypertension Daughter Spina bifida Brother Stroke Other Mental health problem Social History Household Members: Significant Other Housing: Apartment Do you presently have visiting nurse or other home services: No Alcohol intake: never Patient Tobacco Use Status: Never used Tobacco e-Cigarette/Vaping Use: Never Used Second Hand Smoke Exposure: Yes service: No Current occupational status: disabled Cognitive needs: Yes (cane) Hearing needs: No Vision needs: Yes (glasses) Questionnaire PHQ-9 Over the last 2 weeks, how often have you been bothered by any of the following problems? 1. Little interest or pleasure in doing things: not at all 2. Feeling down, depressed, or hopeless: not at all 3. Trouble falling or staying asleep, or sleeping too much: not at all 4. Feeling tired or having little energy: not at all 5. Poor appetite or overeating: not at all 6. Feeling bad about yourself - or that you are a failure or have let yourself or your family down: not at all 7. Trouble concentrating on things, such as reading the newspaper or watching television: not at all 8. Moving or speaking so slowly that other people could have noticed. Or the opposite - being so fidgety or restless that you have been moving around a lot more than usual: not at all 9. Thoughts that you would be better off or of hurting yourself in some way: not at all Total score: 0 Depression Screening Interpretation: Negative Depression Screening Done: Yes 98617 - PHQ-9 Billing: Yes Source: Developed by Drs. Casper Tamayo, Ayah Gaviria, Malik Brady and colleagues, with an educational óscar from [employer]. Thrive Questionnaire Date Thrive assessed: 01/04/24 I am a: Patient What is your living situation today?: I have a steady place to live Within the past 12 months, did the food you bought not last and you didn't have the money to get more?: Never true Within the past 12 months, did you worry whether your food would run out before you got money to buy more?: Never true Do you have trouble paying for medicines?: No Do you have trouble getting transportation to medical appointments?: No Do you have trouble paying your heating and electricity bill?: No Do you have trouble taking care of your child, family member or friend?: No Do you have trouble with day-to-day activities such as bathing, preparing meals, shopping, managing finances, etc.?: No Are you currently unemployed and looking for a job?: No Are you interested in more education?: No Please select the resources that you would like help with: None Currently or been in a relationship where the following occur: No concerns reported THRIVE Score: 0 AUDIT C Alcohol Use Questionnaire (AUDIT-C) 1. How often do you have a drink containing alcohol?: Never 3. How often do you have six or more drinks on one occasion?: Never Total Score: 0 Score Reviewed/Action Taken: Yes SAUL-7 AMB Questionnaire SAUL-7 Date SAUL - 7 assessed: 01/04/24 Feeling nervous, anxious, or on edge: 0 = Not at all Not being able to stop or control worryin = Not at all Worrying too much about different things: 0 = Not at all Trouble relaxin = Not at all Being so restless that it is hard to sit still: 0 = Not at all Becoming easily annoyed or irritable: 0 = Not at all Feeling afraid as if something awful might happen: 0 = Not at all Total SAUL-7 score (0-4 normal; 5-9 mild; 10-14 moderate; 15-21 severe): 0 Source: Developed by Drs. Casper Tamayo, Ayah Gaviria, Malik Brady and colleagues, with an educational óscar from [employer]. Review of Systems Const Denies chills, Reports fatigue, Denies fever(s) and Denies headache(s) ENT Denies dysphagia, Denies dizziness, Denies otalgia, Denies headache(s), Reports nasal congestion, Denies neck pain, Denies odynophagia and Denies sore throat Card Denies chest pain, Denies palpitations and Denies dyspnea Resp Denies chest congestion, Reports cough (on and off), Denies dyspnea and Denies wheezing GI Denies abdominal pain, Denies constipation, Denies dysphagia, Denies heartburn, Denies diarrhea, Denies nausea, Denies odynophagia and Denies vomiting Reports nocturia, Denies dysuria and Denies urinary urgency Musc Reports back pain (over the lower back -chronic), Reports arthralgias (increased over the right shoulder lately) and Denies neck pain Skin/Breast Denies rash Neuro Denies dizziness and Denies headache(s) Endo Reports fatigue and Denies palpitations Aller/Immun Denies wheezing Physical exam (Primary Care) Vital Signs: Physical examination is not performed as visit / consultation today is done over videoconference - Telehealth visit All physical findings indicated here, if present, are as per patient's and / or caregivers / proxy's report and visual inspection over videoconference, if appropriate or applicable Tobacco/Smoking Status: Tobacco use Status Tobacco use date assessed 01/04/24 01/04/24 12:41 Patient Tobacco Use Status Never used Tobacco 01/04/24 12:41 e-Cigarette/Vaping Use Never Used 01/04/24 12:41 PHQ-9: PHQ-9 Score PHQ-9: Total score 0 01/04/24 12:58 Depression Screening Interpretation: Negative Thrive Assessment: Date of Thrive Assessment Date Thrive assessed 01/04/24 01/04/24 12:41 Currently or been in a relationship where the following occur: No concerns reported Telehealth Telehealth Telehealth Platform: Other (please specify) Location of provider rendering services: practice address Location of patient: address on file Telehealth method: video (ANDROID - Doximity) Patient verbally consented to treatment: Yes Patient verbally consented to billing insurance company: Yes Patient informed of any privacy concerns related to visit: Yes Minutes spent on Phone/Video with Pt.: 22 Results Reviewed Results Reviewed: Laboratory Tests 12/27/23 12/27/23 12/27/23 10:25 10:28 12:12 WBC 15.8 H Hgb 12.3 Hct 35.4 L Plt Count 416 H Sodium 137 Potassium 3.9 Creatinine 0.96 Estimated GFR 59 Fasting Glucose 211 H Hemoglobin A1c % 9.6 H Calcium 9.8 AST 18 ALT 24 Triglycerides 170 H Cholesterol 201 H LDL Cholesterol, Calc 126 H HDL Cholesterol 41 Vitamin B12 557 25-OH Vitamin D Total 31.6 TSH 2.06 Ur Specific [place] 1.010 Urine Protein 100 (2+) H Urine Glucose (UA) 100 H Urine Blood Negative Urine Nitrite Negative Ur Leukocyte Esterase Negative Microalb/Creat Ratio 875.9 H Assessment and Plan Assessment & Plan (1) COVID-19: Code(s): U07.1 - COVID-19 Plan: Patient tested positive for COVID last week on 12/27/2023 and had to cancel her follow up appt then States that she just took some OTC meds PRN for symptomatic treatment and is currently feeling better overall She tested herself again for COVID a couple of days ago and her test still came back positive - is wondering how much longer will it take for her to test negative Have advised patient that it usually will take a week or more for testing to become negative in COVID cases and advised her to test herself again in another week if she wants to Otherwise, as she is feeling better and if she does not experience any further relapse of her symptoms, she really does not need to test again (2) Diabetes mellitus: Code(s): E11.9 - Type 2 diabetes mellitus without complications Qualifiers: Diabetes mellitus type: type 2 Diabetes mellitus salvage determiner insulin use: without nursing home use Diabetes mellitus complication status: with hyperglycemia Qualified Code(s): E11.65 - Type 2 diabetes mellitus with hyperglycemia Plan: Her HgbA1c was at 9.6% on her labs done last week (in-office HgbA1c was at 9.0% a few months ago) - goal is at least <7.0% Reinforced diabetic diet She is currently still on Giimepiride 4 mg QD, Lantus 20 units QD, Trulicity 3 mg SQ once a week, Lantus 20 units Q HS and Pioglitazone 30 mg QD Follow up with endocrinology next month as scheduled (3) Benign essential hypertension: Code(s): I10 - Essential (primary) hypertension Plan: Reinforced low-sodium diet - goal is systolic BP of 120 to 130 mm or less Continue Losartan 50 mg Q PM and Nifedipine ER 30 mg Q AM (4) Pure hypercholesterolemia: Code(s): E78.00 - Pure hypercholesterolemia, unspecified Plan: Results of her labs done last week reviewed and discussed with patient Reinforced low-cholesterol diet Continue Atorvastatin 80 mg QD Will recheck her labs and fasting lipids in 3 months for follow up (5) Right thalamic stroke: Code(s): I63.9 - Cerebral infarction, unspecified Plan: MRI of the brain in November 2020 showed (+) acute lacunar infarct involving the right thalamus Patient does not appear to have any significant residual neurologic or physical deficits from her CVA Continue Aspirin 81 mg QD and Clopidogrel 75 mg QD and emphasized again the importance of better control of her blood pressure, blood sugar and cholesterol to prevent recurrence of her CVA Follow-up with neurology as scheduled or as needed - she was reportedly advised at her most recent neurology follow up that she does not need to see them regularly from now on and only on an as-needed basis (6) Low back pain: Code(s): M54.50 - Low back pain, unspecified Qualifiers: Chronicity: unspecified Back pain laterality: unspecified Sciatica presence: unspecified whether sciatica present Qualified Code(s): M54.50 - Low back pain, unspecified Plan: Reinforced activity and weight-lifting restrictions Continue Gabapentin 400 mg BID Lumbar spine x-rays done in July 2021 revealed mild multilevel degenerative disc disease with lower lumbar spine facet arthropathy, unchanged. Stable, chronic grade 1 anterolisthesis of L5 on S1. No acute osseous abnormality (7) Insomnia: Code(s): G47.00 - Insomnia, unspecified Qualifiers: Insomnia type: unspecified Qualified Code(s): G47.00 - Insomnia, unspecified Plan: Sleep hygiene reinforced Continue Zolpidem 10 mg once a day at bedtime as needed (8) Anxiety: Code(s): F41.9 - Anxiety disorder, unspecified Plan: Continue Lorazepam 0.5 mg 1 tablet once a day as needed (9) Depression: Code(s): F32.9 - Major depressive disorder, single episode, unspecified Qualifiers: Depression Type: major depressive disorder Major depression recurrence: recurrent Active/Remission status: currently active Major depression episode severity: unspecified Qualified Code(s): F33.9 - Major depressive disorder, recurrent, unspecified Plan: Continue Fluoxetine 20 mg once a day in the morning Follow-up with Psychiatry as scheduled (10) Obesity (BMI 30-39.9): Code(s): E66.9 - Obesity, unspecified Plan: Reinforced diet/exercise as tolerated/lose weight Plan Follow up as scheduled in March 2024 Orders: Orders Lipid Panel 03/16/24 E78.00 - Pure hypercholesterolemia, unspecified Comprehensive [place]. Panel Fast 03/16/24 E78.00 - Pure hypercholesterolemia, unspecified Microalbumin, Random (w Creat) 03/16/24 E11.9 - Type 2 diabetes mellitus without complications UA CC w/rflx Micro + Cult 03/16/24 R30.0 - Dysuria Complete Blood Count Auto Diff 03/16/24 D64.9 - Anemia, unspecified Hemoglobin A1c 03/16/24 E11.9 - Type 2 diabetes mellitus without complications TSH reflex Free T4 03/16/24 E78.00 - Pure hypercholesterolemia, unspecified Coding Level of Care Code Tele Est Pt Level 4 (11312) Diagnoses COVID-19 U07.1 Type 2 diabetes mellitus with hyperglycemia, without long-term current use of insulin E11.65 Diabetes mellitus type: type 2 Diabetes mellitus nursing home insulin use: without salvage determiner use Diabetes mellitus complication status: with hyperglycemia Benign essential hypertension I10 Pure hypercholesterolemia E78.00 Right thalamic stroke I63.9 Low back pain, unspecified back pain laterality, unspecified chronicity, unspecified whether sciatica present M54.50 Chronicity: unspecified Back pain laterality: unspecified Sciatica presence: unspecified whether sciatica present Insomnia, unspecified type G47.00 Insomnia type: unspecified Anxiety F41.9 Episode of recurrent major depressive disorder, unspecified depression episode severity F33.9 Depression Type: major depressive disorder Major depression recurrence: recurrent Active/Remission status: currently active Major depression episode severity: unspecified Obesity (BMI 30-39.9) E66.9
== END 2024-01-04 15:38 | disposition home or self-care (01) ==
LOC: HO.HMCH 12:38
PROVIDERS: PCP Internal Medicine; Visit Provider Internal Medicine
DX: U07.1 COVID-19 (principal); E11.65 Type 2 diabetes mellitus with hyperglycemia; I63.9 Cerebral infarction, unspecified; F33.9 Major depressive disorder, recurrent, unspecified; I10 Essential (primary) hypertension; E78.00 Pure hypercholesterolemia, unspecified; M54.50 Low back pain, unspecified; G47.00 Insomnia, unspecified; F41.9 Anxiety disorder, unspecified; E66.9 Obesity, unspecified

== ENCOUNTER → 2024-01-04 12:38 | Outpatient (BNVA) | payer OTHER, SELFPAY | PROVIDERS: PCP Internal Medicine; Visit Provider Internal Medicine ==

== ENCOUNTER 2024-02-07 11:08 | Outpatient (AMB) | payer OTHER, SELFPAY ==
--- NOTE | 2024-02-07 11:10 | A.OFFVIS_ITS ---
Vital Signs 02/07/24 11:13 Height 4 ft 11 in Weight 158 lb 11.725 oz BMI 32.1 BP 142/72 H Blood Pressure Location Rt brachial Position Sitting Pulse 85 Pulse Source Pulse Oximeter Intake Visit Reasons: DM Intake Note: Patient presents today for a follow-up on Type 2 Diabetes Mellitus: Last Diabetic eye exam was on: DUE Last Podiatry exam was on: Does not see a Clothes Wringer Most recent HbA1c: 9.6% 12/27/2023 Random Glucose- 225 mg/dL, Today Director Of Strategy & Mobile Required: No Information Interpreted: non-clinical & clinical Accompanied by: Self / Same As Patient Allergies ibuprofen [From Motrin] Allergy (Mild, Verified 02/07/24 11:11) STOMACH UPSET oxycodone [From Percocet] Allergy (Mild, Verified 02/07/24 11:11) ITCHING lactose [LACTOSE] Allergy (Unknown, Verified 02/07/24 11:11) ABD PAIN metformin Adverse Reaction (Unknown, Verified 02/07/24 11:11) nausea, somnolence amlodipine Adverse Reaction (Verified 02/07/24 11:11) Swelling HPI Comments Details: 63 year old female presenting for follow up of type 2 diabetes. Initially diagnosed with T2DM > 10 yrs ago. Last seen by me in October Was initially started on treatment with metformin .Got sleepy with metformin . Current regimen -Trulicity 3mg Qwkly (increased from 1.5mg). Glimepimide 4 mg QD Actos 30 (increased from 15mg daily) Lantus -taking 14 units. Previous medication metformin-did not tolerate. Forget her glucometer. Said fasting readings generally ~200-220. A1C 12/27/2023 9.6%. Had covid a few weeks ago and threw things off for her. She is having low motivation to get out of the house, exercise etc. Family history of T2DM in maternal Type 2 DM . Has seen ophtho-says she is overdue Neuropathic pain-on gabapentin. Previously saw podiatry Denies nephropathy, on ALLAN/ARB. Has HLD, on statin. Denies CAD.Had CVA last yr Had diabetes education.In distant past ROS see HPI PHYSICAL EXAM: GENERAL: Alert and oriented x 3. NAD EYES: EOMI. Anicteric. HENT: Moist mucous membranes. No scleral icterus. No cervical lymphadenopathy. LUNGS: Clear to auscultation bilaterally. CARDIOVASCULAR: Regular rate and rhythm. No murmur. No JVD. ABDOMEN: Soft, non-tender +bs EXTREMITIES: No edema. Non-tender. SKIN: No rashes or lesions. Warm. NEUROLOGIC: No focal neurological deficits. CN II-XII grossly intact PSYCHIATRIC: Cooperative. Appropriate mood and affect [facility] Medical History Uncontrolled type 2 diabetes mellitus with hyperglycemia, with long-term current use of insulin Intracranial vascular stenosis Diabetes HTN (hypertension) CVA (cerebral vascular accident) Right thalamic stroke Obesity (BMI 30-39.9) Depression Anxiety Insomnia GERD without esophagitis Anemia, iron deficiency Lumbar degenerative disc disease Pure hypercholesterolemia Benign essential hypertension Diabetes mellitus Sciatic pain Fibromyalgia Surgical History History of surgery History of left salpingo-oophorectomy H/O bilateral breast reduction surgery History of carpal tunnel release History of appendectomy History of section History of hysterectomy Family History Father Suicide Epilepsy Mother Poor high blood pressure control Diabetes Hypertension Daughter Spina bifida Brother Stroke Other Mental health problem Social History Household Members: Significant Other Housing: Apartment Do you presently have visiting nurse or other home services: No Alcohol intake: never Patient Tobacco Use Status: Never used Tobacco e-Cigarette/Vaping Use: Never Used Second Hand Smoke Exposure: Yes service: No Current occupational status: disabled Cognitive needs: Yes (cane) Hearing needs: No Vision needs: Yes (glasses) Physical Exam Vital Signs: Last Vital Signs Pulse 85 02/07/24 11:13 BP 142/72 H 02/07/24 11:13 BMI result Body Mass Index 32.1 Results Reviewed Results Reviewed: Laboratory Last Values Glucose (Clinic) 225 mg/dL (60-115) H 02/07/24 11:16 Assessment & Plan Assessment & Plan (1) Uncontrolled type 2 diabetes mellitus with hyperglycemia, with long-term current use of insulin: Code(s): E11.65 - Type 2 diabetes mellitus with hyperglycemia; Z79.4 - 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 (current) use of insulin Category: Medical Plan: Uncontrolled Advised to increase lantus by 5 each week up to 30 if not seeing numbers at goal she will return in one month with her meter or sooner if needed Medications: Changed From insulin glargine (Lantus Solostar U-100 Insulin) 20 units (0.2 mL) subcut BEDTIME 3 mL 1RF E11.65 - Type 2 diabetes mellitus with hyperglycemia, Z79.4 - senior living (current) use of insulin To insulin glargine (Lantus Solostar U-100 Insulin) 30 units (0.3 mL) subcut BEDTIME 3 mL 1RF E11.65 - Type 2 diabetes mellitus with hyperglycemia, Z79.4 - senior living (current) use of insulin Refilled blood sugar diagnostic ([place] [employer] Ultra Test strips) As directed - to test blood sugar TID 100 ea 12RF E11.9 - Type 2 diabetes mellitus without complications Coding Level of Care Code Est Pt Level 4 (18706) Diagnoses Uncontrolled type 2 diabetes mellitus with hyperglycemia, with long-term current use of insulin E11.65; Z79.4
[2024-02-07 11:13] VITALS: BP 142/72; PULSE 85; BMI 32.1
[2024-02-07 11:22] LABS: Glucose, Whole Blood 225 mg/dL (60-115)
== END 2024-02-07 11:45 | disposition home or self-care (01) ==
PROVIDERS: PCP Internal Medicine; Visit Provider Internal Medicine
DX: E11.65 Type 2 diabetes mellitus with hyperglycemia (principal); Z79.4 Long term (current) use of insulin

== ENCOUNTER → 2024-02-07 11:08 | Outpatient (BNVA) | payer OTHER, SELFPAY | PROVIDERS: PCP Internal Medicine; Visit Provider Internal Medicine | DX: E11.65 Type 2 diabetes mellitus with hyperglycemia (principal); Z79.4 Long term (current) use of insulin; Z79.899 Other long term (current) drug therapy | CPT/HCPCS: 82947; 99212 ==

== ENCOUNTER 2024-02-13 09:52 | Outpatient (AMB) | payer OTHER, SELFPAY ==
--- NOTE | 2024-02-13 09:55 | MHC.PC.OV ---
Vital Signs 02/13/24 09:56 Height 4 ft 11 in Weight 157 lb BMI 31.7 BP 148/76 H Blood Pressure Location Lt brachial Position Sitting Pulse 91 Pulse Source Pulse Oximeter Pulse Oximetry (%) 98 Oxygen Delivery Method Room Air Intake Visit Reasons: tooth extraction on 02/29/24 Intake Note: Patient is here for a Pre-op for tooth extraction scheduled with Dr Kyler Gay on 02/29/2024 Wood Hacker Required: No Allergies ibuprofen [From Motrin] Allergy (Mild, Verified 02/13/24 10:19) STOMACH UPSET oxycodone [From Percocet] Allergy (Mild, Verified 02/13/24 10:19) ITCHING lactose [LACTOSE] Allergy (Unknown, Verified 02/13/24 10:19) ABD PAIN metformin Adverse Reaction (Unknown, Verified 02/13/24 10:19) nausea, somnolence amlodipine Adverse Reaction (Verified 02/13/24 10:19) Swelling Medication List - Last Reconciled 02/13/24 by Iesha Sutton PA-C acetaminophen (Tylenol) 650 mg (2 x 325 mg) PO Q6H PRN acetaminophen ER (Arthritis Pain Relief (acetaminophen) ER) 650 mg PO Q12H PRN aspirin 81 mg PO DAILY atorvastatin 80 mg PO BEDTIME [BLOOD PRESSURE MONITOR As directed] blood sugar diagnostic ([employer] Ultra Test strips) As directed - to test blood sugar TID blood-glucose meter ([employer] Ultra2 Meter kit) As directed- To test blood sugar TID cholecalciferol (vitamin D3) 50 mcg PO DAILY clopidogrel (Plavix) 75 mg PO DAILY 30 days diclofenac sodium 1% (Arthritis Pain (diclofenac)) 2 grams topical QID 14 days dulaglutide 3 mg (0.5 mL) subcut QWEEK 4 weeks famotidine 20 mg PO DAILY 14 days fluoxetine 20 mg PO DAILY gabapentin 400 mg PO BID glimepiride 4 mg PO QAM insulin glargine (Lantus Solostar U-100 Insulin) 30 units (0.3 mL) subcut BEDTIME lancets ([employer] UltraSoft Lancets) As directed- To test blood sugar TID lorazepam 0.5 mg PO DAILY PRN losartan 50 mg PO BEDTIME miconazole nitrate (Miconazole-7) 100 mg vaginal BEDTIME 7 days bcnouyfm-knrwlvwum-XE 3.5-10,000-1 mg/mL-unit/mL-% 4 drps otic (ear) right Q8H 7 days nifedipine ER 30 mg See Protocol PO DAILY 30 days omeprazole 40 mg PO DAILY 30 days pen needle, diabetic (Pen Needle) As directed daily pioglitazone 30 mg PO DAILY zolpidem 10 mg PO BEDTIME Tobacco use date assessed: 01/04/24 Dental Screening Dental Screen Date: 01/04/24 HPI tooth extraction on 02/29/24 HPI Details 63-year-old female with past medical history of diabetes mellitus, hypercholesterolemia, GERD, hypertension last seen by Dr. Peoples December 2023 coming in for preoperative visit. Patient is scheduled to have tooth extraction 02/29/2024. Patient follows with endocrinology for management of diabetes mellitus advised to increase Lantus by 5 each week up to 30. Patient has been having recurrent molar tooth infection due to cracked and loose tooth and was given antibiotic by dentist and still having swelling and pain and advised to have the tooth removed. Hypertension: blood pressure mildly elevated in the office today presently on losartan and nifedipine. Has not been taking the losartan in several months. DM: A1c 9.6% on last bloodwork. Currently on insulin, glimeperide, pioglitazone, and dulaglutide. [facility] [place] Medical History Uncontrolled type 2 diabetes mellitus with hyperglycemia, with long-term current use of insulin Intracranial vascular stenosis Diabetes HTN (hypertension) CVA (cerebral vascular accident) Right thalamic stroke Obesity (BMI 30-39.9) Depression Anxiety Insomnia GERD without esophagitis Anemia, iron deficiency Lumbar degenerative disc disease Pure hypercholesterolemia Benign essential hypertension Diabetes mellitus Sciatic pain Fibromyalgia Surgical History History of surgery History of left salpingo-oophorectomy H/O bilateral breast reduction surgery History of carpal tunnel release History of appendectomy History of section History of hysterectomy Family History Father Suicide Epilepsy Mother Poor high blood pressure control Diabetes Hypertension Daughter Spina bifida Brother Stroke Other Mental health problem Social History Household Members: Significant Other Housing: Apartment Do you presently have visiting nurse or other home services: No Alcohol intake: never Patient Tobacco Use Status: Never used Tobacco e-Cigarette/Vaping Use: Never Used Second Hand Smoke Exposure: Yes service: No Current occupational status: disabled Cognitive needs: Yes (cane) Hearing needs: No Vision needs: Yes (glasses) Questionnaire Thrive Questionnaire Date Thrive assessed: 01/04/24 Are you currently unemployed and looking for a job?: No AUDIT C Alcohol Use Questionnaire (AUDIT-C) 1. How often do you have a drink containing alcohol?: Never 3. How often do you have six or more drinks on one occasion?: Never Total Score: 0 Score Reviewed/Action Taken: Yes SAUL-7 AMB Questionnaire SAUL-7 Date SAUL - 7 assessed: 01/04/24 Source: Developed by Drs. Casper Tamayo, Ayah Gaviria, Malik Brady and colleagues, with an educational óscar from [employer]). Review of Systems Const Denies body aches, Denies fatigue, Denies fever(s), Denies frequent falls, Denies headache(s) and Denies weakness Eyes Reports no additional complaints and Denies change in vision ENT Denies dysphagia, Denies dizziness, Denies facial pain, Denies headache(s), Denies nasal congestion and Denies odynophagia Card Denies chest pain, Denies syncope, Denies irregular heart rhythm, Denies leg edema, Denies lightheadedness and Denies dyspnea Resp Denies cough and Denies dyspnea GI Denies constipation, Denies dysphagia, Denies dyspepsia, Denies diarrhea, Denies nausea, Denies odynophagia and Denies vomiting Denies urinary frequency, Denies dysuria, Denies urinary hesitancy and Denies urinary urgency Musc Denies back pain and Denies myalgias Skin/Breast Reports system reviewed and no additional complaints, except as documented Neuro Denies dizziness, Denies syncope, Denies frequent falls, Denies headache(s) and Denies weakness Psych Reports no additional complaints Endo Denies fatigue Physical exam (Primary Care) Vital Signs: Oxygen Delivery Method Room Air 02/13/24 09:56 BMI result Body Mass Index 31.7 Tobacco/Smoking Status: Tobacco use Status Tobacco use date assessed 01/04/24 02/13/24 09:56 Patient Tobacco Use Status Never used Tobacco 02/13/24 09:56 e-Cigarette/Vaping Use Never Used 02/13/24 09:56 Thrive Assessment: Date of Thrive Assessment Date Thrive assessed 01/04/24 02/13/24 09:56 Const General: cooperative, healthy appearing, comfortable and no acute distress Orientation/consciousness: patient oriented x3 HENMT Head: Yes normocephalic Ears: hearing grossly normal bilaterally General nose exam: Normal external nose present Eyes General: appearance normal, both eyes and all related structures Conjunctivae: conjunctivae normal Neck Neck: Yes full ROM and Yes no lymphadenopathy Resp Effort & Inspection: normal respiratory effort Auscultation: clear to auscultation bilaterally, no crackles, no rales, no rhonchi and no wheezes Cardio Rate: regular rate Rhythm: regular rhythm Skin General skin exam: no rashes or lesions noted Neuro General: patient oriented x3 Gait exam (Neuro): Normal gait present Extrem General: Yes normal to inspection, Yes full ROM and No edema Psych Affect: normal affect Attitude: cooperative Insight: Good insight present (Psych) Judgement: Good judgement present (Psych) Coding Level of Care Code Est Pt Level 4 (01932) Diagnoses Pre-op evaluation Z01.818 Assessment & Plan Assessment & Plan (1) Pre-op evaluation: Code(s): Z01.818 - Encounter for other preprocedural examination Category: Medical Plan: Regarding preop clearance, the patient is at moderate risk for proposed surgery and moderate to high risk for delayed wound healing and postoperative infection due to elevated A1c. Reviewed with the patient that no surgery is completely free of risk and that this examination is to assist the surgeon in reviewing informed consent. Advised patient to discontinue dulaglutide 1 week prior to the procedure and discontinue clopidogrel and aspirin 5 days prior to the procedure. On the morning of the procedure patient to take losartan and nifedipine and all other medications may be held until after the procedure has been completed. blood work evaluated. No further workup needed at this time and may proceed with the contemplated procedure. Discussed with patient that A1c being elevated at 9.6% is not ideal for this procedure however due to the risk/progression of infection they may proceed with procedure. A1c being elevated puts the patient at risk for delayed wound healing as well as postoperative infection and should be monitored closely by the dental office after completion of the procedure. Thank you very much for letting me participate in the care of this patient Plan This note was constructed using voice recognition software. While every effort has been made to ensure accuracy and sulfuric acid plant operator, still areas may have been included sometimes these areas may affect the content or meeting of the given symptoms. Total time spent caring for the patient today was 30 minutes. This includes time spent before the visit reviewing the chart, time spent during the visit, and time spent after the visit and documentation. Orders: Referrals Optometry Referral E11.65 - Type 2 diabetes mellitus with hyperglycemia, Z79.4 - [employer] (current) use of insulin Podiatry Referral E11.65 - Type 2 diabetes mellitus with hyperglycemia, Z79.4 - [facility] (current) use of insulin Medications: Refilled losartan 50 mg PO BEDTIME 30 tabs 3RF I10 - Essential (primary) hypertension omeprazole 40 mg PO DAILY 30 days 30 caps 0RF
[2024-02-13 09:56] VITALS: BP 148/76; PULSE 91; O2SAT 98; BMI 31.7
== END 2024-02-13 10:37 | disposition home or self-care (01) ==
LOC: HO.HMCH 09:53
PROVIDERS: PCP Internal Medicine
DX: Z01.818 Encounter for other preprocedural examination (principal)

== ENCOUNTER → 2024-02-13 09:52 | Outpatient (BNVA) | payer OTHER, SELFPAY | PROVIDERS: PCP Internal Medicine | DX: Z01.818 Encounter for other preprocedural examination (principal) | CPT/HCPCS: 99212 ==

== ENCOUNTER 2024-02-26 11:09 | Outpatient (AMB) | payer OTHER, SELFPAY ==
[2024-02-26 12:45] VITALS: BP 180/110; PULSE 94; TEMP 36.8; O2SAT 97
--- NOTE | 2024-02-26 12:45 | AM.OFFWIN_ITS ---
Intake Vital Signs 02/26/24 12:45 Weight 155 lb BP 180/110 H Blood Pressure Location Rt brachial Position Sitting Pulse 94 Pulse Source Pulse Oximeter Temp 98.3 F Temp Source Oral Pulse Oximetry (%) 97 Oxygen Delivery Method Room Air Intake Visit Reasons: EP UTI, ear pain [phone] Intake Note: Patient here for bilat ear pain and lower back pain. Patient Tobacco Use Status: Never used Tobacco Allergies ibuprofen [From Motrin] Allergy (Mild, Verified 02/26/24 12:53) STOMACH UPSET oxycodone [From Percocet] Allergy (Mild, Verified 02/26/24 12:53) ITCHING lactose [LACTOSE] Allergy (Unknown, Verified 02/26/24 12:53) ABD PAIN metformin Adverse Reaction (Unknown, Verified 02/26/24 12:53) nausea, somnolence amlodipine Adverse Reaction (Verified 02/26/24 12:53) Swelling HPI HPI Comments History of Present Illness Details 63 y/o female patient who presents to [facility] walk in clinic with c/o lower back pain x 3 days. Pt also c/o right ear pain radiating down to her right jaw for 3 days. She is schedule to have dental surgery 03/07 due to Tooth infection right side jaw. She completed Abx (PCN) given to her about 1 month for dental surgery preop. [facility] Medical History Uncontrolled type 2 diabetes mellitus with hyperglycemia, with long-term current use of insulin Intracranial vascular stenosis Diabetes HTN (hypertension) CVA (cerebral vascular accident) Right thalamic stroke Obesity (BMI 30-39.9) Depression Anxiety Insomnia GERD without esophagitis Anemia, iron deficiency Lumbar degenerative disc disease Pure hypercholesterolemia Benign essential hypertension Diabetes mellitus Sciatic pain Fibromyalgia Surgical History History of surgery History of left salpingo-oophorectomy H/O bilateral breast reduction surgery History of carpal tunnel release History of appendectomy History of section History of hysterectomy Family History Father Suicide Epilepsy Mother Poor high blood pressure control Diabetes Hypertension Daughter Spina bifida Brother Stroke Other Mental health problem Social History Household Members: Significant Other Housing: Apartment Do you presently have visiting nurse or other home services: No Alcohol intake: never Patient Tobacco Use Status: Never used Tobacco e-Cigarette/Vaping Use: Never Used Second Hand Smoke Exposure: Yes service: No Current occupational status: disabled Cognitive needs: Yes (cane) Hearing needs: No Vision needs: Yes (glasses) Review of Systems Const All systems reviewed & are unremarkable except as noted in HPI and below Physical Exam Vital Signs: Last Vital Signs Temp 98.3 F 02/26/24 12:45 Pulse 94 02/26/24 12:45 BP 180/110 H 02/26/24 12:45 Pulse Ox 97 02/26/24 12:45 Oxygen Delivery Method Room Air 02/26/24 12:45 Const General: cooperative and no acute distress Nutritional Appearance: obese Orientation/consciousness: patient oriented x3 HEENT Head: Yes normocephalic Ears: external ears normal, TM normal on the left and TM abnormal bulging on the right, erythematous on the right, with fluid behind the TM on the right and retracted on the right General nose exam: Normal external nose present Face and sinus: Yes sinuses nontender Mouth: moist mucous membranes General: Yes no CVA tenderness Back/Spine/Pelvis Back: no CVA tenderness Thoracic/Lumbar Spine: thoraco-lumbar spasm and lumbar spinal tenderness Neuro General: patient oriented x3 Assessment & Plan Assessment & Plan (1) Otitis externa: Code(s): H60.90 - Unspecified otitis externa, unspecified ear Qualifiers: Otitis externa type: diffuse Chronicity: acute Laterality: right Qualified Code(s): H60.311 - Diffuse otitis externa, right ear Plan: Ordered Otic Abx drops for 7 days. Acetaminophen for pain relief. (2) Lumbar degenerative disc disease: Code(s): M51.36 - Other intervertebral disc degeneration, lumbar region Qualifiers: Disc-related pain type: unspecified whether pain present Qualified Code(s): M51.369 - Other intervertebral disc degeneration, lumbar region without mention of lumbar back pain or lower extremity pain Plan: Ordered Acetaminophen for pain relief U/A negative but large amount of Glucose. Medications: New ciprofloxacin-dexamethasone 0.3-0.1 % 4 drps otic (ears) BID 7 days 7.5 mL 0RF H60.311 - Diffuse otitis externa, right ear acetaminophen 1,000 mg (2 x 500 mg) PO Q6H PRN 20 caps 0RF pain M51.369 - Other intervertebral disc degeneration, lumbar region without mention of lumbar back pain or lower extremity pain Discontinued ibvzwers-nrfviqwoy-FZ 3.5-10,000-1 mg/mL-unit/mL-% Discontinued Reason: Patient Completed Course 4 drps otic (ear) right Q8H 7 days 10 mL 0RF Coding Level of Care Code Est Pt Level 4 (32728) Diagnoses Acute diffuse otitis externa of right ear H60.311 Otitis externa type: diffuse Chronicity: acute Laterality: right Degeneration of intervertebral disc of lumbar region, unspecified whether pain present M51.369 Disc-related pain type: unspecified whether pain present Time Spent (min) 20
== END 2024-02-26 13:55 | disposition home or self-care (01) ==
PROVIDERS: PCP Internal Medicine; Visit Provider Nurse Practitioner Family
DX: H60.311 Diffuse otitis externa, right ear (principal); M51.369 Other intervertebral disc degeneration, lumbar region without mention of lumbar back pain or lower extremity pain

== ENCOUNTER → 2024-02-26 11:09 | Outpatient (BNVA) | payer OTHER, SELFPAY | PROVIDERS: PCP Internal Medicine; Visit Provider Nurse Practitioner Family | DX: H60.311 Diffuse otitis externa, right ear (principal); M51.369 Other intervertebral disc degeneration, lumbar region without mention of lumbar back pain or lower extremity pain | CPT/HCPCS: 99212 ==

== ENCOUNTER 2024-06-05 13:51 | Outpatient (AMB) | payer OTHER, SELFPAY ==
[2024-06-05 14:01] VITALS: BP 160/100; PULSE 88; O2SAT 98; BMI 32.8
--- NOTE | 2024-06-05 14:01 | MHC.PC.OV ---
Vital Signs 06/05/24 14:01 Height 4 ft 11 in Weight 162 lb 4 oz BMI 32.8 BP 160/100 H Blood Pressure Location Lt brachial Position Sitting Pulse 88 Pulse Source Pulse Oximeter Pulse Oximetry (%) 98 Oxygen Delivery Method Room Air Intake Visit Reasons: numbness in my face mouth week also pain in legs Security Escort Required: No Accompanied by: Self / Same As Patient Allergies ibuprofen [From Motrin] Allergy (Mild, Verified 06/08/24 09:05) STOMACH UPSET oxycodone [From Percocet] Allergy (Mild, Verified 06/08/24 09:05) ITCHING lactose [LACTOSE] Allergy (Unknown, Verified 06/08/24 09:05) ABD PAIN metformin Adverse Reaction (Unknown, Verified 06/08/24 09:05) nausea, somnolence amlodipine Adverse Reaction (Verified 06/08/24 09:05) Swelling Medication List - Last Reconciled 06/08/24 by MOHAMUD Grady acetaminophen 1,000 mg (2 x 500 mg) PO Q6H PRN aspirin 81 mg PO DAILY atorvastatin 80 mg PO BEDTIME [BLOOD PRESSURE MONITOR As directed] blood sugar diagnostic ([employer] Ultra Test strips) As directed - to test blood sugar TID blood-glucose meter ([employer] Ultra2 Meter kit) As directed- To test blood sugar TID cholecalciferol (vitamin D3) 50 mcg PO DAILY ciprofloxacin-dexamethasone 0.3-0.1 % 4 drps otic (ears) BID 7 days clopidogrel (Plavix) 75 mg PO DAILY 30 days diclofenac sodium 1% (Arthritis Pain (diclofenac)) 2 grams topical QID 14 days dulaglutide 3 mg (0.5 mL) subcut QWEEK 4 weeks famotidine 20 mg PO DAILY 14 days fluoxetine 20 mg PO DAILY gabapentin 200 mg (2 x 100 mg) PO TID 30 days glimepiride 4 mg PO QAM insulin glargine (Lantus Solostar U-100 Insulin) 30 units (0.3 mL) subcut BEDTIME lancets (SMASHsolaruch UltraSoft Lancets) As directed- To test blood sugar TID lorazepam 0.5 mg PO DAILY PRN losartan 50 mg PO BEDTIME nifedipine ER 30 mg See Protocol PO DAILY 30 days omeprazole 40 mg PO DAILY 30 days pen needle, diabetic (Pen Needle) As directed daily pioglitazone 30 mg PO DAILY zolpidem 10 mg PO BEDTIME Tobacco use date assessed: 06/05/24 Dental Screening Dental Screen Date: 06/05/24 Did you have a dental visit in the last 12 months?: Yes Did you have a dental problem in the last 6 months where you did not have access to dental care?: No Was dental information given to patient?: Patient has dentist HPI numbness in my face mouth week also pain in legs HPI Details The patient is 63 year old female presenting for right thigh numbness and tingling and left side of face numbness and heaviness on her tongue on and off. Reports that she had these symptoms after her stroke Patient reports that she is only taking the gabapentin once a day because it makes her tired Discussed with patient about decreasing the dose and increasing the frequency Patient blood pressure was elevated in the office Reports that she has not taken her nifedipine ER 30mg yet and the only thing she had all morning was coffee Reports that when she does take her blood pressure medications as scheduled, her blood pressure normalizes and at times drops a little low Reports that the other day, her blood pressure was 109/60 and she felt weird Reports that her blood sugar drops to the lower side as well Reports that it was 68 the other morning and that made her feel off The patient also reports going without eating or drinking for long periods Discussed with the patient that her fluctuation in her blood pressure and blood sugar could be due to her intermittent periods of fasting Encouraged patient to check her blood sugar and blood pressure frequently Patient reports that she went to [facility] in [place] to get her eye examined for glasses She reports that they told her that she would have to see one of their specialist because her eye pressure was very high She reports that they gave her an appointment to follow up with another doctor in the same company In addition, she has a another appointment with the diplomatic interpreter as well [facility] Medical History Uncontrolled type 2 diabetes mellitus with hyperglycemia, with long-term current use of insulin Intracranial vascular stenosis Diabetes HTN (hypertension) CVA (cerebral vascular accident) Right thalamic stroke Obesity (BMI 30-39.9) Depression Anxiety Insomnia GERD without esophagitis Anemia, iron deficiency Lumbar degenerative disc disease Pure hypercholesterolemia Benign essential hypertension Diabetes mellitus Sciatic pain Fibromyalgia Surgical History History of surgery History of left salpingo-oophorectomy H/O bilateral breast reduction surgery History of carpal tunnel release History of appendectomy History of section History of hysterectomy Family History Father Suicide Epilepsy Mother Poor high blood pressure control Diabetes Hypertension Daughter Spina bifida Brother Stroke Other Mental health problem Social History Household Members: Significant Other Housing: Apartment Do you presently have visiting nurse or other home services: No Alcohol intake: never Patient Tobacco Use Status: Never used Tobacco e-Cigarette/Vaping Use: Never Used Second Hand Smoke Exposure: Yes service: No Current occupational status: disabled Cognitive needs: Yes (cane) Hearing needs: No Vision needs: Yes (glasses) Questionnaire PHQ-9 Over the last 2 weeks, how often have you been bothered by any of the following problems? 1. Little interest or pleasure in doing things: not at all 2. Feeling down, depressed, or hopeless: not at all 3. Trouble falling or staying asleep, or sleeping too much: not at all 4. Feeling tired or having little energy: not at all 5. Poor appetite or overeating: not at all 6. Feeling bad about yourself - or that you are a failure or have let yourself or your family down: not at all 7. Trouble concentrating on things, such as reading the newspaper or watching television: not at all 8. Moving or speaking so slowly that other people could have noticed. Or the opposite - being so fidgety or restless that you have been moving around a lot more than usual: not at all 9. Thoughts that you would be better off or of hurting yourself in some way: not at all Total score: 0 Depression Screening Interpretation: Negative Depression Screening Done: Yes 82939 - PHQ-9 Billing: Yes Source: Developed by Drs. Casper Tamayo, Ayah Gaviria, Malik Brady and colleagues, with an educational óscar from [employer]. Thrive Questionnaire Date Thrive assessed: 06/05/24 I am a: Patient What is your living situation today?: I have a steady place to live Within the past 12 months, did the food you bought not last and you didn't have the money to get more?: Never true Within the past 12 months, did you worry whether your food would run out before you got money to buy more?: Never true Do you have trouble paying for medicines?: No Do you have trouble getting transportation to medical appointments?: No Do you have trouble paying your heating and electricity bill?: No Do you have trouble taking care of your child, family member or friend?: No Do you have trouble with day-to-day activities such as bathing, preparing meals, shopping, managing finances, etc.?: No Are you currently unemployed and looking for a job?: No Are you interested in more education?: No Please select the resources that you would like help with: None Currently or been in a relationship where the following occur: No concerns reported THRIVE Score: 0 AUDIT C Alcohol Use Questionnaire (AUDIT-C) 1. How often do you have a drink containing alcohol?: Never 3. How often do you have six or more drinks on one occasion?: Never Total Score: 0 Score Reviewed/Action Taken: Yes SAUL-7 AMB Questionnaire SAUL-7 Date SAUL - 7 assessed: 06/05/24 Feeling nervous, anxious, or on edge: 0 = Not at all Not being able to stop or control worryin = Not at all Worrying too much about different things: 0 = Not at all Trouble relaxin = Not at all Being so restless that it is hard to sit still: 0 = Not at all Becoming easily annoyed or irritable: 0 = Not at all Feeling afraid as if something awful might happen: 0 = Not at all Total SAUL-7 score (0-4 normal; 5-9 mild; 10-14 moderate; 15-21 severe): 0 Source: Developed by Drs. Casper Tamayo, Ayah Gaviria, Malik Brady and colleagues, with an educational óscar from [employer]. SAUL-7 Assessment Billing SAUL-7 Assessment Tool: SAUL-7 Assessment 69253 Review of Systems Const Details: Denies chills, Denies fatigue, Denies fever(s), Denies headache(s) and Denies weakness HEENT Denies change in vision, Denies dizziness, Denies headache(s), Denies hearing loss, Denies nasal congestion, Denies sinus pain, Denies sinus pressure and Denies sore throat Card Denies chest pain, Denies lightheadedness, Denies dyspnea and Denies other (palpitations) Resp Denies cough, Denies dyspnea and Denies wheezing GI Denies abdominal pain, Denies melena, Denies hematochezia, Denies change in bowel habits, Denies dyspepsia and Denies nausea Denies hematuria and Denies dysuria Musc Denies abnormal gait, Denies myalgias, Denies arthralgias, +numbness and +tingling Skin/Breast Denies rash, Denies unusual bruising and Denies wounds Neuro Denies abnormal gait, Denies dizziness, Denies headache(s), Denies memory loss, +numbness,+tingling and Denies weakness Psych Denies anxiety, Denies depression and Denies memory loss Endo Denies cold intolerance, Denies fatigue, Denies heat intolerance, Denies polydipsia and Denies polyuria Antoine/Lymph Denies easy bleeding and Denies easy bruising Aller/Immun Denies wheezing Physical exam (Primary Care) Vital Signs: Last Vital Signs Pulse 88 06/05/24 14:01 BP 160/100 H 06/05/24 14:01 Pulse Ox 98 06/05/24 14:01 Oxygen Delivery Method Room Air 06/05/24 14:01 BMI result Body Mass Index 32.8 Tobacco/Smoking Status: Tobacco use Status Tobacco use date assessed 06/05/24 06/05/24 14:06 Patient Tobacco Use Status Never used Tobacco 06/05/24 14:06 e-Cigarette/Vaping Use Never Used 06/05/24 14:06 PHQ-9: PHQ-9 Score PHQ-9: Total score 0 06/05/24 14:18 Depression Screening Interpretation: Negative Thrive Assessment: Date of Thrive Assessment Date Thrive assessed 06/05/24 06/05/24 14:06 Currently or been in a relationship where the following occur: No concerns reported Const Other: General: no acute distress, well developed, alert and awake Nutritional Appearance: well nourished Orientation/consciousness: patient oriented x3 HENMT Head: Yes normocephalic and Yes atraumatic Ears: hearing grossly normal bilaterally and TM's normal bilaterally General nose exam: Normal external nose present and Normal nares present Mouth: Normal oral and palatal mucosa present and moist mucous membranes Teeth and gingiva: dentition normal Throat: Yes oropharynx normal Eyes Pupils: Equal, round and reactive pupils present and Pupil accommodation reflex normal EOM: EOMs intact bilaterally Neck Neck: Yes normal visual inspection, Yes no lymphadenopathy and Yes trachea midline Thyroid: Thyroid normal Carotids: no bruits Lymphatic: no lymphadenopathy noted Chest Chest palpation & inspection: normal inspection of the chest Resp Effort & Inspection: normal respiratory effort Auscultation: clear to auscultation bilaterally Cardio Rate: regular rate Rhythm: regular rhythm Heart sounds: S1 normal heart sound present, S2 normal heart sound present, no gallops, no murmurs and no rubs GI Palpation (GI): Abdomen is soft nontender to palpation Auscultation: normal bowel sounds General: Yes no CVA tenderness Back/Spine/Pelvis Back: no CVA tenderness Cervical Spine: cervical ROM normal and No Cervical spine tenderness Thoracic/Lumbar Spine: Lumbar tenderness Skin General: warm and dry. Normal skin color. Normal skin turgor Lesions: no lesions Rashes: no rashes Trauma: no lacerations or abrasions Wounds: no wounds Nails: normal Neuro General: patient oriented x3, gait normal Cranial nerves: Yes Equal, round and reactive pupils present Cognition (Neuro): normal cognition Gait exam (Neuro): Normal gait present Motor exam (neuro): 5/5 motor strength present throughout Extrem General: Yes normal to inspection, No edema and No calf tenderness Psych Appearance: grossly normal Affect: normal affect Attitude: cooperative Thought process: Normal thought process present Coding Level of Care Code Est Pt Level 4 (49578) Diagnoses Paresthesia of both lower extremities R20.2 Uncontrolled type 2 diabetes mellitus with hyperglycemia, with long-term current use of insulin E11.65; Z79.4 Right thalamic stroke I63.9 Benign essential hypertension I10 Blurring of vision H53.8 Fibromyalgia M79.7 Episode of recurrent major depressive disorder, unspecified depression episode severity F33.9 Depression Type: major depressive disorder Major depression recurrence: recurrent Active/Remission status: currently active Major depression episode severity: unspecified Anxiety F41.9 Degeneration of intervertebral disc of lumbar region, unspecified whether pain present M51.369 Disc-related pain type: unspecified whether pain present Additional Codes PHQ-9 - 15343 - PHQ-9 Billing: Yes ([id number]) SAUL-7 Assessment Billing - SAUL-7 Assessment Tool: SAUL-7 Assessment 12077 ([id number]) Time Spent (min) 36 Assessment & Plan Assessment & Plan (1) Paresthesia of both lower extremities: Code(s): R20.2 - Paresthesia of skin Category: Medical Plan: The patient has a history of paresthesia. She is presenting today with numbness and tingling of her anterior right thigh and numbness of the left side of her face and her tongue Patient reports having these symptoms after her stroke. She reports that it fluctuates sometimes it feels better and sometimes it feels worse again. Discussed with patient about her compliance with taking her gabapentin. Patient reports that sometimes she does not take it at all and sometimes she takes it once a day. She reports that this medication makes her feel foggy and that she thinks that the dose is too much. We will decrease the dose to 200 mg and increase the frequency to t.i.d. from b.i.d. (2) Uncontrolled type 2 diabetes mellitus with hyperglycemia, with long-term current use of insulin: Code(s): E11.65 - Type 2 diabetes mellitus with hyperglycemia; Z79.4 - longterm (current) use of insulin Category: Medical Plan: Discussed with patient that her diabetes is the most likely the reason for her paresthesia in her leg. Encourage compliance with her medications to get better control of her diabetes. Discussed with patient that her last A1c was 9.6%, which is above her goal. Continue dulaglutide 3 mg subQ q.week, glimepiride 4 mg daily Lantus 30 units subQ at bedtime, and pioglitazone 30 mg daily Follow up with Endocrine as scheduled (3) Right thalamic stroke: Code(s): I63.9 - Cerebral infarction, unspecified Category: Medical Plan: Patient has a history of stroke. She is complaining of numbness to left side of face and tongue. Reports that these were residual from an old stroke and that the symptoms fluctuate. No focal deficits noted. We will continue to monitor (4) Benign essential hypertension: Code(s): I10 - Essential (primary) hypertension Category: Medical Plan: Patient blood pressure was elevated in office. Reports that she has not taken her blood pressure medication as yet and that the only thing she had so far for the day was coffee. Discussed with patient that she needs to take her medication as scheduled. Especially due to her high risk of stroke. Discussed with patient about the likelihood of the caffeine enhancing her blood pressure elevation. Reinforced low-sodium diet Continue losartan 50 mg daily and nifedipine ER 30 mg daily (5) Blurring of vision: Code(s): H53.8 - Other visual disturbances Category: Medical Plan: Patient reports that she went to [facility] in [place] to get her eye examined for glasses She reports that they told her that she would have to see a specialist because her eye pressure was very high She reports that they gave her an appointment to follow up with another doctor in the same company (6) Fibromyalgia: Code(s): M79.7 - Fibromyalgia Category: Medical Plan: Gabapentin 400 mg b.i.d. was changed to gabapentin 200 mg t.i.d. Take this medication as ordered (7) Depression: Code(s): F32.9 - Major depressive disorder, single episode, unspecified Category: Medical Qualifiers: Depression Type: major depressive disorder Major depression recurrence: recurrent Active/Remission status: currently active Major depression episode severity: unspecified Qualified Code(s): F33.9 - Major depressive disorder, recurrent, unspecified Plan: Continue fluoxetine 20 mg daily Denies SI/HI (8) Anxiety: Code(s): F41.9 - Anxiety disorder, unspecified Category: Medical Plan: Continue fluoxetine 20 mg daily and lorazepam 0.5 mg daily p.r.n. (9) Lumbar degenerative disc disease: Code(s): M51.36 - Other intervertebral disc degeneration, lumbar region Category: Medical Qualifiers: Disc-related pain type: unspecified whether pain present Qualified Code(s): M51.369 - Other intervertebral disc degeneration, lumbar region without mention of lumbar back pain or lower extremity pain Plan: Reinforced weight and activity restrictions Continue gabapentin as ordered Plan Labs ordered for the patient to get done as soon as possible. Follow up appointment with PCP in 3 months for chronic conditions Orders: Orders Lipid Panel 06/05/24 D50.9 - Iron deficiency anemia, unspecified, E11.65 - Type 2 diabetes mellitus with hyperglycemia, E11.9 - Type 2 diabetes mellitus without complications, E66.9 - Obesity, unspecified, K21.9 - Gastro-esophageal reflux disease without esophagitis, R20.2 - Paresthesia of skin, R79.89 - Other specified abnormal findings of blood chemistry, Z79.4 - longterm (current) use of insulin Vitamin D 25-OH Total 06/05/24 D50.9 - Iron deficiency anemia, unspecified, E11.65 - Type 2 diabetes mellitus with hyperglycemia, E11.9 - Type 2 diabetes mellitus without complications, E66.9 - Obesity, unspecified, K21.9 - Gastro-esophageal reflux disease without esophagitis, R20.2 - Paresthesia of skin, R79.89 - Other specified abnormal findings of blood chemistry, Z79.4 - longterm (current) use of insulin Microalbumin, Random (w Creat) 06/05/24 D50.9 - Iron deficiency anemia, unspecified, E11.65 - Type 2 diabetes mellitus with hyperglycemia, E11.9 - Type 2 diabetes mellitus without complications, E66.9 - Obesity, unspecified, K21.9 - Gastro-esophageal reflux disease without esophagitis, R20.2 - Paresthesia of skin, R79.89 - Other specified abnormal findings of blood chemistry, Z79.4 - intermediate project manager (current) use of insulin UA CC w/rflx Micro + Cult 06/05/24 D50.9 - Iron deficiency anemia, unspecified, E11.65 - Type 2 diabetes mellitus with hyperglycemia, E11.9 - Type 2 diabetes mellitus without complications, E66.9 - Obesity, unspecified, K21.9 - Gastro-esophageal reflux disease without esophagitis, R20.2 - Paresthesia of skin, R79.89 - Other specified abnormal findings of blood chemistry, Z79.4 - intermediate project manager (current) use of insulin Complete Blood Count Auto Diff 06/05/24 D50.9 - Iron deficiency anemia, unspecified, E11.65 - Type 2 diabetes mellitus with hyperglycemia, E11.9 - Type 2 diabetes mellitus without complications, E66.9 - Obesity, unspecified, K21.9 - Gastro-esophageal reflux disease without esophagitis, R20.2 - Paresthesia of skin, R79.89 - Other specified abnormal findings of blood chemistry, Z79.4 - intermediate project manager (current) use of insulin Comprehensive Spruce. Panel Fast 06/05/24 D50.9 - Iron deficiency anemia, unspecified, E11.65 - Type 2 diabetes mellitus with hyperglycemia, E11.9 - Type 2 diabetes mellitus without complications, E66.9 - Obesity, unspecified, K21.9 - Gastro-esophageal reflux disease without esophagitis, R20.2 - Paresthesia of skin, R79.89 - Other specified abnormal findings of blood chemistry, Z79.4 - longterm (current) use of insulin Glucose Fasting 06/05/24 D50.9 - Iron deficiency anemia, unspecified, E11.65 - Type 2 diabetes mellitus with hyperglycemia, E11.9 - Type 2 diabetes mellitus without complications, E66.9 - Obesity, unspecified, K21.9 - Gastro-esophageal reflux disease without esophagitis, R20.2 - Paresthesia of skin, R79.89 - Other specified abnormal findings of blood chemistry, Z79.4 - intermediate project manager (current) use of insulin Hemoglobin A1c 06/05/24 D50.9 - Iron deficiency anemia, unspecified, E11.65 - Type 2 diabetes mellitus with hyperglycemia, E11.9 - Type 2 diabetes mellitus without complications, E66.9 - Obesity, unspecified, K21.9 - Gastro-esophageal reflux disease without esophagitis, R20.2 - Paresthesia of skin, R79.89 - Other specified abnormal findings of blood chemistry, Z79.4 - intermediate project manager (current) use of insulin TSH reflex Free T4 06/05/24 D50.9 - Iron deficiency anemia, unspecified, E11.65 - Type 2 diabetes mellitus with hyperglycemia, E11.9 - Type 2 diabetes mellitus without complications, E66.9 - Obesity, unspecified, K21.9 - Gastro-esophageal reflux disease without esophagitis, R20.2 - Paresthesia of skin, R79.89 - Other specified abnormal findings of blood chemistry, Z79.4 - longterm (current) use of insulin Medications: New gabapentin 200 mg (2 x 100 mg) PO TID 30 days 180 caps 3RF Discontinued gabapentin Discontinued Reason: Patient Refused 400 mg PO BID 90 caps 1RF
--- OUTSIDE RECORDS SUMMARY | 2024-06-05 14:55 | XMS_ITS | Clinical Summary ---
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 Name Role Phone Unavailable Primary Care Provider Unavailabl e Source Comments PLEASE NOTE, if this patient is a minor, it may be UNLAWFUL to discuss sensitive information that is contained in these records (such as FAMILY PLANNING, MENTAL HEALTH or SUBSTANCE ABUSE) with the minor patient's parent or other person without the patient's specific authorization.[facility] Medications clindamycin HCL (CLEOCIN) 300 mg capsuleIndications :Tooth infection Take 1 Capsule by mouth 3 (three) times daily 21 Capsule 2 Active chlorhexidine (PERIDEX) 0.12 % solutionIndication s:Stage 1 grade B localized periodontitis per AAP/EFP 2017 classification Swish and spit 15 mL 2 (two) times daily 420 mL 1 4 Active aspirin 81 mg cap Take by mouth Active atorvastatin (LIPITOR) 80 mg tablet Take 80 mg by mouth nightly at bedtime Active cholecalciferol, vitamin D3, (VITAMIN D3) 1,250 mcg (50,000 unit) capsule Take 50,000 Units by mouth once a week Active clopidogreL (PLAVIX) 75 mg tablet Take 75 mg by mouth once daily Active diclofenac sodium-menthoL 1.5-10 % cmpk Apply topically Active dulaglutide (TRULICITY) 1.5 mg/0.5 mL pen injector Inject 1.5 mg into the skin once a week Active gabapentin (NEURONTIN) 400 mg capsule Take 400 mg by mouth 2 (two) times daily Active glimepiride (AMARYL) 4 mg tablet Take 4 mg by mouth once daily with breakfast Active insulin glargine (LANTUS U-100 INSULIN) 100 unit/mL injection Inject into the skin once daily Active lidocaine-silicone , adhesive 5 % cmpk Apply topically Active LORazepam 1 mg/0.5 mL syrg Take by mouth Active losartan (COZAAR) 50 mg tablet Take 50 mg by mouth once daily Active miconazole nitrate (MICOTIN) [address] 100 mg vaginally nightly at bedtime Active NIFEdipine (ADALAT CC) 30 mg 24 hr tablet Take 30 mg by mouth once daily Active pioglitazone (ACTOS) 15 mg tablet Take 15 mg by mouth once daily Active zolpidem (AMBIEN) 10 mg tablet Take 10 mg by mouth nightly at bedtime as needed for sleep Active Active Problems Problem Noted Date Diagnosed Date Hypertension 05/03/2023 Diabetes ([facility]) 05/03/2023 Social History Tobacco Use Types Packs/Day Years Used Date Smoking Tobacco: Never Assessed Social Connections Answer Date Recorded Connectedness 0 01/05/2024 Financial Resource Strain Answer Date R ecorded Financial Resource Strain 0 2023 Stress Answer Date Recorded Stress 0 05/03/2023 Physical Activity Answer Date Recorded Physical Activity 0 05/03/2023 Food Insecurity Answer Date Recorded Food 0 01/10/2024 Transportation Needs Answer Date Record ed Transportation 0 05/03/2023 Housing Stability Answer Date Recorded Housing 0 05/03/2023 Safety and Environment Answer Date Maciel rded Safety 0 05/03/2023 Utilities Answer Date Recorded Utilities 0 05/03/2023 Employment Answer Date Recorded Stress 0 01/05/2024 Comments Unknown Sex and Gender Information Value Date Recorded Sex Assigned at Not on file Legal Sex Female 12:59 PM PDT Gender Identity Not on file Sexual Orientation Not on file Last Filed Vital Signs Vital Sign Reading Time Taken Comments Blood Pressure 168/88 06/12/2023 11:05 AM EST Pulse 86 06/12/2023 11:05 AM EST Temperature - - Respiratory Rate - - Oxygen Saturation - - Inhaled Oxygen Concentration - - Weight - - Height - - Body Mass Index - - Plan of Treatment Health Maintenance Due Date Last Done Comments Dental Prophy 1961 Diabetes Foot Exam 1961 Diabetes HbA1c 1961 Diabetes Microalbumin (w/Creatinine) 1961 HPV Screening 1961 Hepatitis C Screening 1961 Lipid Screening 1961 Pap + HPV 1961 Serum Creatinine 1961 Tobacco Screening 1961 Retinopathy Screening 1974 HIV Screening 1976 Medicare Annual Wellness Visit 10/27/1979 Imm-DTaP/Tdap/Td (1 - Tdap) 1980 Imm-Pneumococcal (1 of 2 - PCV) 1980 Cervical Cancer Screening 1982 Pap Smear 1982 Breast Cancer Screening (Mammogram) 2001 CT Colonography 2006 Colonoscopy 2006 Colorectal Cancer Screening 2006 FIT/gFOBT 2006 Fecal DNA 2006 Flexible Sigmoidoscopy 2006 Imm-Zoster, Recombinant (1 of 2) 10/27/2011 [id number] ( season) 2023 Imm-Influenza (#1) 2023 Alcohol and Drug Screen 04/16/2024 Depression Annual Screen 04/16/2024 Dental BW 05/05/2024 05/03/2023 Dental Examination 05/05/2024 05/03/2023 Dental Perio Charting 05/05/2024 05/03/2023 Dental FMX/Pano 05/05/2028 05/03/2023 Cervical Ablation/Cold-Knife Conization Discontinued Cervical Cryotherapy Discontinued Colposcopy Discontinued Endometrial Biopsy Discontinued Excision/Leep Discontinued HPV Genotyping Discontinued Vaginal Pap Discontinued Vulvoscopy Discontinued Procedures Procedure Name Priority Date/Time Associated Diagnosis Comments Full INTRAORAL - COMP SERIES OF RADIOGRAPHIC IMAGES Routine 05/03/2023 11:00 AM EST Encounter for dental examination Full COMP ORAL EVALUATION - NEW/ESTABLISHED PATIENT Routine 05/03/2023 11:00 AM EST Encounter for dental examination from Last 3 Months or Most Recently Relevant to Health Maintenance Insurance [place] [facility] - [facility]
== END 2024-06-05 14:50 | disposition home or self-care (01) ==
PROVIDERS: PCP Internal Medicine
DX: R20.2 Paresthesia of skin (principal); E11.65 Type 2 diabetes mellitus with hyperglycemia; Z79.4 Long term (current) use of insulin; I63.9 Cerebral infarction, unspecified; I10 Essential (primary) hypertension; H53.8 Other visual disturbances; M79.7 Fibromyalgia; F33.9 Major depressive disorder, recurrent, unspecified; F41.9 Anxiety disorder, unspecified; M51.369 Other intervertebral disc degeneration, lumbar region without mention of lumbar back pain or lower extremity pain

== ENCOUNTER → 2024-06-05 13:51 | Outpatient (BNVA) | payer OTHER, SELFPAY | PROVIDERS: PCP Internal Medicine | DX: R20.2 Paresthesia of skin (principal); E11.65 Type 2 diabetes mellitus with hyperglycemia; Z79.4 Long term (current) use of insulin; I63.9 Cerebral infarction, unspecified; I10 Essential (primary) hypertension; H53.8 Other visual disturbances; M79.7 Fibromyalgia; F33.9 Major depressive disorder, recurrent, unspecified; F41.9 Anxiety disorder, unspecified; M51.369 Other intervertebral disc degeneration, lumbar region without mention of lumbar back pain or lower extremity pain | CPT/HCPCS: 96127; 99212 ==

== ENCOUNTER 2024-09-04 15:00 | Outpatient (REF) | payer OTHER, SELFPAY ==
--- OUTSIDE RECORDS SUMMARY | 2024-09-04 15:05 | XMS_ITS | Clinical Summary ---
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 Name Role Phone Unavailable Primary Care Provider [...] Noted Date Diagnosed Date Hypertension 05/03/2023 Diabetes ([facility]) 05/03/2023 Social History Tobacco Use Types Packs/Day [...] Health Maintenance Due Date Last Done Comments Anxiety Screening 1961 Dental Prophy 1961 Diabetes Foot Exam 1961 Diabetes HbA1c 1961 HPV Screening 1961 Hepatitis C Screening 1961 Lipid Screening 1961 Pap + HPV 1961 Serum Creatinine 1961 Tobacco Screening 1961 Urine Albumin Creatinine Ratio Screening 1961 Retinopathy Screening 1974 HIV Screening 1976 Medicare Annual Wellness Visit 10/27/1979 Imm-DTaP/Tdap/Td (1 - Tdap) 1980 Imm-Pneumococcal (1 of 2 - PCV) 1980 Cervical Cancer Screening 1982 Pap Smear 1982 Breast Cancer Screening (Mammogram) 2001 CT Colonography 2006 Colonoscopy 2006 Colorectal Cancer Screening 2006 FIT/gFOBT 2006 Fecal DNA 2006 Flexible Sigmoidoscopy 2006 Imm-Zoster, Recombinant (1 of 2) 10/27/2011 Voh-PGBOF-18 () 12/16/2023 Imm-Influenza (#1) 2023 Alcohol and Drug Screen [...] Most Recently Relevant to Health Maintenance Insurance [place] [facility] - [facility]ENTAL
[2024-09-04 15:18] LABS: MANUAL DIFF FLAG NO
[2024-09-04 15:31] LABS: Basophils Absolute Auto 0.1 X10*3/uL (0.0-0.2); Basophils Percent Auto 0.4 % (0-2); Eosinophils Absolute Auto 0.2 X10*3/uL (0.0-0.4); Hematocrit 36.5 % (37.0-47.0); Hemoglobin 12.2 g/dl (12.0-16.0); Imm Gran Abs Auto 0.04 X10*3/uL (0.00-0.03); Imm Gran Pct Auto 0.3 % (0.0-0.4); Lymphocytes Absolute Auto 2.5 X10*3/uL (1.2-4.9); Lymphocytes Percent Auto 21.2 % (20-40); Mean Corpuscular HGB Conc 33.4 g/dl (31.0-35.0); Mean Corpuscular Hemoglobin 27.9 pg (27.0-33.0); Mean Corpuscular Volume 83.5 fL (80.0-98.0); Mean Platelet Volume 9.3 fL (9.4-12.3); Monocytes Absolute Auto 0.8 X10*3/uL (0.1-1.2); Monocytes Percent Auto 7.2 % (2-11); Neutrophils Percent Auto 68.9 % (45-73); Platelet Count 415 X10*3/uL (160-400); Red Blood Count 4.37 X10*6/uL (4.20-5.50); Red Cell Distribution Width 12.3 % (11.0-16.0); White Blood Count 11.6 X10*3/uL (4.8-10.8)
[2024-09-04 15:51] LABS: Estimated Average Glucose 232 mg/dL; Hemoglobin A1c % 9.7 % (<6.0)
[2024-09-04 16:49] LABS: Alanine Aminotransferase 20 U/L (0-31); Albumin Level 4.1 g/dL (3.5-5.0); Alkaline Phosphatase 105 U/L (39-117); Anion Gap 13 (12-20); Aspartate Amino Transferase 25 U/L (5-31); Bilirubin Total 0.3 mg/dL (0.0-1.0); Blood Urea Nitrogen 11 mg/dL (9-16); Calcium 9.5 mg/dL (8.4-10.2); Carbon Dioxide 29 mmol/L (22-29); Chloride 100 mmol/L (96-108); Cholesterol 238 mg/dL (<200); Estimated Glomerular Filt Rate > 60; Glucose Fasting 273 mg/dL (60-99); HDL Cholesterol 53 mg/dL (>40); LDL Cholesterol Calculated 150 mg/dL (<100); Potassium 3.9 mmol/L (3.3-5.1); Sodium 138 mmol/L (135-145); Triglycerides 177 mg/dL (<150)
[2024-09-04 16:58] LABS: TSH reflex Free T4 2.34 uIU/mL (0.32-4.0); Vitamin D 25-OH Total 40.4 ng/mL (>30)
== END 2024-09-04 15:01 | disposition home or self-care (01) ==
LOC: HO.LAB 15:00
PROVIDERS: PCP Internal Medicine
DX: R79.89 Other specified abnormal findings of blood chemistry (principal); E11.65 Type 2 diabetes mellitus with hyperglycemia; Z79.4 Long term (current) use of insulin; R20.2 Paresthesia of skin; E11.9 Type 2 diabetes mellitus without complications; E66.9 Obesity, unspecified; K21.9 Gastro-esophageal reflux disease without esophagitis; D50.9 Iron deficiency anemia, unspecified
CPT/HCPCS: 36415; 80053; 80061; 82306; 83036; 84443; 85025

== ENCOUNTER 2024-09-05 16:44 | Outpatient (AMB) | payer OTHER, SELFPAY ==
[2024-09-05 16:49] VITALS: BP 148/78; PULSE 94; RESP 18; TEMP 36.1; O2SAT 98; BMI 33.6
--- NOTE | 2024-09-05 16:49 | MHC.PC.OV ---
Vital Signs 09/05/24 16:49 Height 4 ft 11 in Weight 166 lb 9.6 oz BMI 33.6 BP 148/78 H Blood Pressure Location Lt brachial Position Sitting Respiration 18 Pulse 94 Pulse Source Pulse Oximeter Temp 96.9 F Temp Source Temporal Artery Scan Pulse Oximetry (%) 98 Oxygen Delivery Method Room Air Intake Visit Reasons: DM/HTN Adjunct Philosophy Faculty Required: No Accompanied by: Self / Same As Patient Allergies ibuprofen [From Motrin] Allergy (Mild, Verified 09/05/24 17:15) STOMACH UPSET oxycodone [From Percocet] Allergy (Mild, Verified 09/05/24 17:15) ITCHING lactose [LACTOSE] Allergy (Unknown, Verified 09/05/24 17:15) ABD PAIN metformin Adverse Reaction (Unknown, Verified 09/05/24 17:15) nausea, somnolence amlodipine Adverse Reaction (Verified 09/05/24 17:15) Swelling Medication List - Last Reconciled 09/05/24 by Michael Peoples MD acetaminophen 1,000 mg (2 x 500 mg) PO Q6H PRN aspirin 81 mg PO DAILY atorvastatin 80 mg PO BEDTIME [BLOOD PRESSURE MONITOR As directed] blood sugar diagnostic (ColdSpark Ultra Test strips) As directed - to test blood sugar TID blood-glucose meter ([employer]Spark Ultra2 Meter kit) As directed- To test blood sugar TID cholecalciferol (vitamin D3) 50 mcg PO DAILY clopidogrel (Plavix) 75 mg PO DAILY 30 days diclofenac sodium 1% (Arthritis Pain (diclofenac)) 2 grams topical QID 14 days dulaglutide 3 mg (0.5 mL) subcut QWEEK 4 weeks famotidine 20 mg PO DAILY 14 days fluoxetine 20 mg PO DAILY gabapentin 200 mg (2 x 100 mg) PO TID 30 days glimepiride 4 mg PO QAM insulin glargine (Lantus Solostar U-100 Insulin) 30 units (0.3 mL) subcut BEDTIME lancets ([employer] UltraSoft Lancets) As directed- To test blood sugar TID lorazepam 0.5 mg PO DAILY PRN losartan 50 mg PO BEDTIME nifedipine ER 30 mg See Protocol PO DAILY 30 days omeprazole 40 mg PO DAILY 30 days pen needle, diabetic (Pen Needle) As directed daily pioglitazone 30 mg PO DAILY zolpidem 10 mg PO BEDTIME Tobacco use date assessed: 09/05/24 Dental Screening Dental Screen Date: 09/05/24 Did you have a dental visit in the last 12 months?: Yes Did you have a dental problem in the last 6 months where you did not have access to dental care?: No Was dental information given to patient?: Patient has dentist HPI DM/HTN HPI Details Patient comes in today for her follow up visit States that she has been experiencing right ear pain for the past 3 days Describes her ear pain as more like a sensation of swelling in her ear; denies any ear discharge She denies any fever or sore throat; denies any recent cough/cold symptoms Patient denies any headaches or dizziness Denies any chest pains, no SOB No nausea/vomiting, no abdominal pain No change in bowel habits noted Needs a couple of her Rx refilled She had her follow up labs done yesterday - to discuss her results [facility] Medical History Uncontrolled type 2 diabetes mellitus with hyperglycemia, with long-term current use of insulin Intracranial vascular stenosis Diabetes HTN (hypertension) CVA (cerebral vascular accident) Right thalamic stroke Obesity (BMI 30-39.9) Depression Anxiety Insomnia GERD without esophagitis Anemia, iron deficiency Lumbar degenerative disc disease Pure hypercholesterolemia Benign essential hypertension Diabetes mellitus Sciatic pain Fibromyalgia Surgical History History of surgery History of left salpingo-oophorectomy H/O bilateral breast reduction surgery History of carpal tunnel release History of appendectomy History of section History of hysterectomy Family History Father Suicide Epilepsy Mother Poor high blood pressure control Diabetes Hypertension Daughter Spina bifida Brother Stroke Other Mental health problem Social History Household Members: Significant Other Housing: Apartment Do you presently have visiting nurse or other home services: No Alcohol intake: never Patient Tobacco Use Status: Never used Tobacco e-Cigarette/Vaping Use: Never Used Second Hand Smoke Exposure: Yes service: No Current occupational status: disabled Cognitive needs: Yes (cane) Hearing needs: No Vision needs: Yes (glasses) Questionnaire PHQ-9 Over the last 2 weeks, how often have you been bothered by any of the following problems? 1. Little interest or pleasure in doing things: nearly every day 2. Feeling down, depressed, or hopeless: several days 3. Trouble falling or staying asleep, or sleeping too much: several days 4. Feeling tired or having little energy: several days 5. Poor appetite or overeating: several days 6. Feeling bad about yourself - or that you are a failure or have let yourself or your family down: several days 7. Trouble concentrating on things, such as reading the newspaper or watching television: several days 8. Moving or speaking so slowly that other people could have noticed. Or the opposite - being so fidgety or restless that you have been moving around a lot more than usual: more than half the days 9. Thoughts that you would be better off or of hurting yourself in some way: not at all Total score: 11 Depression Screening Interpretation: Positive Depression Screening Follow-up: Follow-up Visit Requested Depression Screening Done: Yes 62244 - PHQ-9 Billing: Yes Source: Developed by Drs. Casper Tamayo, Ayah Gaviria, Malik Brady and colleagues, with an educational óscar from [employer]. Thrive Questionnaire Date Thrive assessed: 09/05/24 I am a: Patient What is your living situation today?: I have a steady place to live Within the past 12 months, did the food you bought not last and you didn't have the money to get more?: Never true Within the past 12 months, did you worry whether your food would run out before you got money to buy more?: Never true Do you have trouble paying for medicines?: No Do you have trouble getting transportation to medical appointments?: No Do you have trouble paying your heating and electricity bill?: No Do you have trouble taking care of your child, family member or friend?: No Do you have trouble with day-to-day activities such as bathing, preparing meals, shopping, managing finances, etc.?: No Are you currently unemployed and looking for a job?: No Are you interested in more education?: No Please select the resources that you would like help with: None Currently or been in a relationship where the following occur: No concerns reported THRIVE Score: 0 AUDIT C Alcohol Use Questionnaire (AUDIT-C) 1. How often do you have a drink containing alcohol?: Never Total Score: 0 Score Reviewed/Action Taken: Yes SAUL-7 AMB Questionnaire SAUL-7 Date SAUL - 7 assessed: 06/05/24 Source: Developed by Drs. Casper Tamayo, Ayah Gaviria, Malik Brady and colleagues, with an educational óscar from [employer]. Review of Systems Const Denies chills, Reports fatigue, Denies fever(s) and Denies headache(s) ENT Denies dysphagia, Denies dizziness, Reports otalgia (more of a sensation of swelling in her right ear), Denies headache(s), Denies neck pain, Denies odynophagia and Denies sore throat Card Denies chest pain, Denies palpitations and Denies dyspnea Resp Denies chest congestion, Denies cough and Denies dyspnea GI Denies abdominal pain, Denies constipation, Denies dysphagia, Denies heartburn, Denies diarrhea, Denies nausea, Denies odynophagia and Denies vomiting Denies difficulty voiding, Reports nocturia, Denies dysuria and Denies urinary urgency Musc Reports back pain (over the lower back -chronic), Reports arthralgias (increased over the right shoulder lately) and Denies neck pain Skin/Breast Denies rash Neuro Denies dizziness and Denies headache(s) Endo Reports fatigue and Denies palpitations Physical exam (Primary Care) Vital Signs: Last Vital Signs Temp 96.9 F 09/05/24 16:49 Pulse 94 09/05/24 16:49 Resp 18 09/05/24 16:49 BP 148/78 H 09/05/24 16:49 Pulse Ox 98 09/05/24 16:49 Oxygen Delivery Method Room Air 09/05/24 16:49 BMI result Body Mass Index 33.6 Tobacco/Smoking Status: Tobacco use Status Tobacco use date assessed 09/05/24 09/05/24 16:52 Patient Tobacco Use Status Never used Tobacco 09/05/24 16:52 e-Cigarette/Vaping Use Never Used 09/05/24 16:52 PHQ-9: PHQ-9 Score PHQ-9: Total score 11 09/07/24 22:39 Depression Screening Interpretation: Positive Depression Screening Follow-up: Follow-up Visit Requested Thrive Assessment: Date of Thrive Assessment Date Thrive assessed 09/05/24 09/05/24 16:52 Currently or been in a relationship where the following occur: No concerns reported Const General: no acute distress and alert HENMT Ears: TM's normal bilaterally, EAC's normal (on the left) and Abnormal EAC present erythema (mild) on the right Throat: Yes posterior oropharynx normal and Yes tonsils normal (no TP congestion noted) Neck Neck: Yes supple and No lymphadenopathy Thyroid: Thyroid normal Resp Auscultation: clear to auscultation bilaterally, no rales and no wheezes Cardio Rate: regular rate Rhythm: regular rhythm Heart sounds: no murmurs GI Palpation (GI): Soft to palpation and nontender Auscultation: normal bowel sounds General: Yes no CVA tenderness Back/Spine/Pelvis Back: no CVA tenderness Thoracic/Lumbar Spine: lumbar spinal tenderness (mild) Skin Rashes: no rashes Extrem General: Yes no clubbing, cyanosis or edema Right upper extremity: shoulder/upper arm Details: tenderness Location: of the A-C joint Results Reviewed Results Reviewed: Laboratory Tests 09/04/24 15:17 WBC 11.6 H Hgb 12.2 Hct 36.5 L Plt Count 415 H Sodium 138 Potassium 3.9 Creatinine 0.87 Estimated GFR > 60 Fasting Glucose 273 H Hemoglobin A1c % 9.7 H Calcium 9.5 AST 25 ALT 20 Triglycerides 177 H Cholesterol 238 H LDL Cholesterol, Calc 150 H HDL Cholesterol 53 25-OH Vitamin D Total 40.4 TSH 2.34 Coding Level of Care Code Est Pt Level 4 (42840) Complex EM visit Add On G2211 Diagnoses Type 2 diabetes mellitus with hyperglycemia, without long-term current use of insulin E11.65 Diabetes mellitus type: type 2 Diabetes mellitus intermediate insulin use: without intermediate use Diabetes mellitus complication status: with hyperglycemia Pure hypercholesterolemia E78.00 Benign essential hypertension I10 Right thalamic stroke I63.9 Degeneration of intervertebral disc of lumbar region, unspecified whether pain present M51.369 Disc-related pain type: unspecified whether pain present Acute otitis externa of right ear, unspecified type H60.501 Otitis externa type: unspecified type Chronicity: acute Insomnia, unspecified type G47.00 Insomnia type: unspecified Anxiety F41.9 Episode of recurrent major depressive disorder, unspecified depression episode severity F33.9 Depression Type: major depressive disorder Major depression recurrence: recurrent Active/Remission status: currently active Major depression episode severity: unspecified Obesity (BMI 30-39.9) E66.9 Additional Codes PHQ-9 - 27705 - PHQ-9 Billing: Yes ([id number]) Assessment & Plan Assessment & Plan (1) Diabetes mellitus: Code(s): E11.9 - Type 2 diabetes mellitus without complications Category: Medical Qualifiers: Diabetes mellitus type: type 2 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 use: without intermediate use Diabetes mellitus complication status: with hyperglycemia Qualified Code(s): E11.65 - Type 2 diabetes mellitus with hyperglycemia Plan: Patient's HgbA1c was at 9.7% on her labs done yesterday (was previously at 9.6% back in December 2023) - goal is at least <7.0% Reinforced diabetic diet - patient admits to poor compliance with her diet over the past several months Continue Lantus 30 units QD, Trulicity 3 mg SQ once a week, Pioglitazone 30 mg QD and Glimepiride 4 mg Q AM for now She was seen by endocrinology last January 2024 and was advised to follow up in a month or so if her blood sugar is still not well-controlled but she has also not done so - has not seen endocrinology since Patient has been advised that she already had a stroke a few years ago and if she does not take her health seriously, she will likely end up with another stroke or a heart attack She has been advised to reach out to endocrinology to schedule a follow-up appointment with them GEORGE (2) Pure hypercholesterolemia: Code(s): E78.00 - Pure hypercholesterolemia, unspecified Category: Medical Plan: Results of her labs done yesterday reviewed and discussed with patient - she is cautioned that despite her Atorvastatin at 80 mg daily, cholesterol level, especially her LDL cholesterol, has actually gone up further Reinforced low-cholesterol diet - patient admits to poor compliance with the diet over the past several months Continue Atorvastatin 80 mg QD for now; will consider adding Ezetimibe or switching her over to Rosuvastatin if her cholesterol numbers are still not at goal over the next few months if patient can start becoming compliant with her diet She is cautioned that she already had stroke/CVA a few years ago in if she does not take her health seriously, she is going to end up with another stroke at some point Have also advised her that she is at a very high risk for a cardiovascular event (AL) as with her uncontrolled diabetes, she is at a significantly higher risk of developing an AL compared to an average person Will recheck her labs and fasting lipids in 3 months for follow up (3) Benign essential hypertension: Code(s): I10 - Essential (primary) hypertension Category: Medical Plan: Reinforced low-sodium diet - goal is systolic BP of 120 to 130 mm or less Continue Losartan 50 mg Q PM and Nifedipine ER 30 mg Q AM for now but advised that we will need to make some adjustments or addition to her meds over the next few months if her blood pressure continues to be suboptimal in terms of control (4) Right thalamic stroke: Code(s): I63.9 - Cerebral infarction, unspecified Category: Medical Plan: MRI of the brain in November 2020 showed (+) acute lacunar infarct involving the right thalamus Patient does not appear to have any significant residual neurologic or physical deficits from her CVA Continue Aspirin 81 mg QD and Clopidogrel 75 mg QD Have emphasized to patient again the importance of better control of her blood pressure, blood sugar and cholesterol to prevent recurrence of her CVA and with all these 3 currently not well-controlled (mostly due to non-compliance with her diet, per patient's own admission), she is currently at a high risk of CVD or recurrence of her CVA Follow-up with neurology as scheduled or as needed - she was reportedly advised at her most recent neurology follow up that she does not need to see them regularly from now on and only on an as-needed basis (5) Lumbar degenerative disc disease: Code(s): M51.36 - Other intervertebral disc degeneration, lumbar region Category: Medical Qualifiers: Disc-related pain type: unspecified whether pain present Qualified Code(s): M51.369 - Other intervertebral disc degeneration, lumbar region without mention of lumbar back pain or lower extremity pain Plan: Reinforced activity and weight-lifting restrictions Continue Gabapentin 400 mg BID Lumbar spine x-rays done in July 2021 revealed mild multilevel degenerative disc disease with lower lumbar spine facet arthropathy, unchanged. Stable, chronic grade 1 anterolisthesis of L5 on S1. No acute osseous abnormality (6) Right otitis externa: Code(s): H60.91 - Unspecified otitis externa, right ear Category: Medical Qualifiers: Otitis externa type: unspecified type Chronicity: acute Qualified Code(s): H60.501 - Unspecified acute noninfective otitis externa, right ear Plan: Will start patient empirically on Augmentin 875 mg BID x 10 days (7) Insomnia: Code(s): G47.00 - Insomnia, unspecified Category: Medical Qualifiers: Insomnia type: unspecified Qualified Code(s): G47.00 - Insomnia, unspecified Plan: Sleep hygiene reinforced Continue Zolpidem 10 mg once a day at bedtime as needed (8) Anxiety: Code(s): F41.9 - Anxiety disorder, unspecified Category: Medical Plan: Continue Lorazepam 0.5 mg 1 tablet once a day as needed (9) Depression: Code(s): F32.9 - Major depressive disorder, single episode, unspecified Category: Medical Qualifiers: Depression Type: major depressive disorder Major depression recurrence: recurrent Active/Remission status: currently active Major depression episode severity: unspecified Qualified Code(s): F33.9 - Major depressive disorder, recurrent, unspecified Plan: Continue Fluoxetine 20 mg once a day in the morning Follow-up with Psychiatry as scheduled (10) Obesity (BMI 30-39.9): Code(s): E66.9 - Obesity, unspecified Category: Medical Plan: Reinforced diet/exercise as tolerated/lose weight Plan Follow up in 3 months Orders: Orders Complete Blood Count Auto Diff 3 Months D64.9 - Anemia, unspecified Comprehensive [place]. Panel Fast 3 Months E78.00 - Pure hypercholesterolemia, unspecified Microalbumin, Random (w Creat) 3 Months E11.9 - Type 2 diabetes mellitus without complications Hemoglobin A1c 3 Months E11.9 - Type 2 diabetes mellitus without complications TSH reflex Free T4 3 Months E78.00 - Pure hypercholesterolemia, unspecified UA CC w/rflx Micro + Cult 3 Months R30.0 - Dysuria Vitamin D 25-OH Total 3 Months E55.9 - Vitamin D deficiency, unspecified C Peptide 3 Months E11.9 - Type 2 diabetes mellitus without complications Lipid Panel 3 Months E78.00 - Pure hypercholesterolemia, unspecified Vitamin B12 and Folate 3 Months E53.8 - Deficiency of other specified B group vitamins Glutamic acid decarboxylase Ab 3 Months E11.9 - Type 2 diabetes mellitus without complications Medications: New amoxicillin-pot clavulanate 875-125 mg 1 tab PO BID 10 days 20 tabs 0RF Refilled gabapentin 200 mg (2 x 100 mg) PO TID 30 days 180 caps 3RF diclofenac sodium 1% (Arthritis Pain (diclofenac)) apply to single elbow, wrist or hand; for hand includes palm/fingers/back of hand 2 grams topical QID 14 days 100 grams 0RF M54.2 - Cervicalgia
== END 2024-09-05 17:28 | disposition home or self-care (01) ==
LOC: HO.HMCH 16:45
PROVIDERS: PCP Internal Medicine; Visit Provider Internal Medicine
DX: E11.65 Type 2 diabetes mellitus with hyperglycemia (principal); I63.9 Cerebral infarction, unspecified; E66.9 Obesity, unspecified; Z68.33 Body mass index [BMI] 33.0-33.9, adult; E78.00 Pure hypercholesterolemia, unspecified; I10 Essential (primary) hypertension; M51.369 Other intervertebral disc degeneration, lumbar region without mention of lumbar back pain or lower extremity pain; H60.501 Unspecified acute noninfective otitis externa, right ear; G47.00 Insomnia, unspecified; F41.9 Anxiety disorder, unspecified; F33.9 Major depressive disorder, recurrent, unspecified

== ENCOUNTER → 2024-09-05 16:44 | Outpatient (BNVA) | payer OTHER, SELFPAY | PROVIDERS: PCP Internal Medicine; Visit Provider Internal Medicine | DX: E11.65 Type 2 diabetes mellitus with hyperglycemia (principal); E78.00 Pure hypercholesterolemia, unspecified; I10 Essential (primary) hypertension; M51.369 Other intervertebral disc degeneration, lumbar region without mention of lumbar back pain or lower extremity pain; H60.501 Unspecified acute noninfective otitis externa, right ear; G47.00 Insomnia, unspecified; F41.9 Anxiety disorder, unspecified; F33.9 Major depressive disorder, recurrent, unspecified; E66.9 Obesity, unspecified; Z68.33 Body mass index [BMI] 33.0-33.9, adult; Z86.73 Personal history of transient ischemic attack (TIA), and cerebral infarction without residual deficits; Z79.4 Long term (current) use of insulin; Z79.82 Long term (current) use of aspirin; Z79.899 Other long term (current) drug therapy; Z13.31 Encounter for screening for depression | CPT/HCPCS: 96127; 99212 ==

== ENCOUNTER 2024-10-14 15:48 | Outpatient (AMB) | payer OTHER, SELFPAY ==
[2024-10-14 15:54] VITALS: BP 168/80; PULSE 99; TEMP 36.7; O2SAT 97; BMI 34.8
--- NOTE | 2024-10-14 15:54 | MHC.OFFWIV ---
Intake Vital Signs 10/14/24 15:54 Height 4 ft 11 in Weight 172 lb 8 oz BMI 34.8 BP 168/80 H Blood Pressure Location Rt brachial Position Sitting Pulse 99 Pulse Source Pulse Oximeter Temp 98.1 F Temp Source Oral Pulse Oximetry (%) 97 Oxygen Delivery Method Room Air Intake Visit Reasons: EP-rt side buttocks pain Intake Note: Patient presents with right side buttocks pain times 2 months consistently Patient Tobacco Use Status: Never used Tobacco [employer] Required: No Is last menstrual period known: No Post menopausal: No Patient : No Allergies ibuprofen (From Motrin) Allergy (Mild, Verified 10/14/24 16:00) STOMACH UPSET oxycodone (From Percocet) Allergy (Mild, Verified 10/14/24 16:00) ITCHING lactose (LACTOSE) Allergy (Unknown, Verified 10/14/24 16:00) ABD PAIN metformin Adverse Reaction (Unknown, Verified 10/14/24 16:00) nausea, somnolence amlodipine Adverse Reaction (Verified 10/14/24 16:00) Swelling Do you need a note to return to daycare/school/sports/work: No HPI HPI Comments History of Present Illness Details History - The patient is a 63-year-old female presenting with pain in the right buttock and sciatica. - Sacroiliac joint pain has persisted for two months, with constant daily discomfort, particularly at night. - Pain is worsened by sitting or lying in bed and is partially alleviated by medication. - Sciatica is a chronic issue, with pain radiating down the leg and occasionally to the head. - The patient uses gabapentin for fibromyalgia, which also aids in managing sciatic pain. - The patient has not engaged in physical therapy recently but is interested in a referral. - She denies trauma or fall. She denies numbness or tingling. - She denies CP, SOB, abd pain, n/v/d, saddle anesthesia, incontinence, back pain, hip pain. Physical Exam General: cooperative, healthy appearing and comfortable, patient oriented x3 Head: Normal to inspection, normocephalic/atraumatic Effort & Inspection: Normal respiratory effort and able to speak in complete sentences. Cardiac: RRR, no M/R/G noted. Normal S1 and S2. Respiratory: Clear to auscultation bilaterally. No w/r/r noted. Back/spine: No CVA tenderness bilaterally. Cervical, thoracic and lumbar spine normal to inspection. Cervical ROM normal, no midline spinous tenderness noted. Thoracic ROM normal, lumbar ROM normal. No midline vertebral spinous tenderness noted. No step offs noted. No TTP of the thoracic or lumbar paraspinous or paravertebral muscles. TTP of the right SI joint and buttock. DTR are 2+ on the lower extremities noted. Ambulates with a steady gait. Extremities: Straight leg raise test positive on right; Straight leg raise test positive on left; motor strength normal 5/5 bilaterally. Neuro: Sensation intact. Patient was informed and verbally consented to the use of an ambient scribe for clinic note documentation during this visit. [facility] Medical History Uncontrolled type 2 diabetes mellitus with hyperglycemia, with long-term current use of insulin Intracranial vascular stenosis Diabetes HTN (hypertension) CVA (cerebral vascular accident) Right thalamic stroke Obesity (BMI 30-39.9) Depression Anxiety Insomnia GERD without esophagitis Anemia, iron deficiency Lumbar degenerative disc disease Pure hypercholesterolemia Benign essential hypertension Diabetes mellitus Sciatic pain Fibromyalgia Surgical History History of surgery History of left salpingo-oophorectomy H/O bilateral breast reduction surgery History of carpal tunnel release History of appendectomy History of section History of hysterectomy Family History Father Suicide Epilepsy Mother Poor high blood pressure control Diabetes Hypertension Daughter Spina bifida Brother Stroke Other Mental health problem Social History Household Members: Significant Other Housing: Apartment Do you presently have visiting nurse or other home services: No Alcohol intake: never Patient Tobacco Use Status: Never used Tobacco e-Cigarette/Vaping Use: Never Used Second Hand Smoke Exposure: Yes Patient : No service: No Current occupational status: disabled Cognitive needs: Yes (cane) Hearing needs: No Vision needs: Yes (glasses) Review of Systems Const All systems reviewed & are unremarkable except as noted in HPI and below Physical Exam Vital Signs: Last Vital Signs Temp 98.1 F 10/14/24 15:54 Pulse 99 10/14/24 15:54 BP 168/80 H 10/14/24 15:54 Pulse Ox 97 10/14/24 15:54 Oxygen Delivery Method Room Air 10/14/24 15:54 BMI result Body Mass Index 34.8 Assessment & Plan Assessment & Plan (1) Buttock pain: Code(s): M79.18 - Myalgia, other site Plan Most likely sciatica vs fibromyalgia vs strain vs radiculopathy Plan - Heat to the area - Activities as tolerated - Continue gabapentin for pain management. - Prescribe a muscle relaxant and an anti-inflammatory medication. - Refer to physical therapy for further management. Orders: Orders PT Evaluation and Treatment Today M54.30 - Sciatica, unspecified side Medications: New cyclobenzaprine 5 mg PO Q8H PRN 21 tabs 0RF Muscle Spasm 7 days naproxen 500 mg PO Q12H PRN 20 tabs 0RF pain 7 days Coding Level of Care Code Est Pt Level 4 (74860) Diagnoses Buttock pain M79.18
--- OUTSIDE RECORDS SUMMARY | 2024-10-14 16:20 | XMS_ITS | Clinical Summary ---
Author Organization [facility] Address [address] [place] [address] Care Team Providers Care Hatchery Supervisor Name Role Phone Unavailable Primary Care Provider [...] Noted Date Diagnosed Date Hypertension 05/03/2023 Diabetes ([facility]) 05/03/2023 Social History Tobacco Use Types Packs/Day [...] Dental Prophy 1961 Diabetes Foot Exam 1961 HPV Screening 1961 Hemoglobin A1c 1961 Hepatitis C Screening 1961 Lipid Screening [...] 2006 Imm-Zoster, Recombinant (1 of 2) 10/27/2011 [id number] (2023- season) 2023 Alcohol and Drug Screen 04/16/2024 Depression Annual Screen 04/16/2024 Dental BW 05/05/2024 05/03/2023 Dental Examination 05/05/2024 05/03/2023 Dental Perio Charting 05/05/2024 05/03/2023 Imm-Influenza (Season Ended) 2024 Dental FMX/Pano 05/05/2028 05/03/2023 Cervical Ablation/Cold-Knife Conization [...] Most Recently Relevant to Health Maintenance [place] [facility]
== END 2024-10-14 16:35 | disposition home or self-care (01) ==
PROVIDERS: PCP Internal Medicine; Visit Provider Physician Assistant Medical
DX: M79.18 Myalgia, other site (principal)

== ENCOUNTER → 2024-10-14 15:48 | Outpatient (BNVA) | payer OTHER, SELFPAY | PROVIDERS: PCP Internal Medicine; Visit Provider Physician Assistant Medical | DX: M79.18 Myalgia, other site (principal) | CPT/HCPCS: 99212 ==

== ENCOUNTER 2024-12-19 15:03 | Outpatient (AMB) | payer OTHER, SELFPAY ==
--- NOTE | 2024-12-19 15:05 | MHC.PC.OV ---
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 Required: No Accompanied by: Self / Same As Patient Allergies ibuprofen (From Motrin) Allergy (Mild, Verified 12/19/24 15:28) STOMACH UPSET oxycodone (From Percocet) Allergy (Mild, Verified 12/19/24 15:28) ITCHING lactose (LACTOSE) Allergy (Unknown, Verified 12/19/24 15:28) ABD PAIN metformin Adverse Reaction (Unknown, Verified 12/19/24 15:28) nausea, somnolence amlodipine Adverse Reaction (Verified 12/19/24 15:28) Swelling Medication List - Last Reconciled 12/19/24 by Michael Peoples MD acetaminophen 1,000 mg (2 x 500 mg) PO Q6H PRN aspirin 81 mg PO DAILY atorvastatin 80 mg PO BEDTIME [BLOOD PRESSURE MONITOR As directed] blood sugar diagnostic ([employer] Ultra Test strips) As directed - to test blood sugar TID blood-glucose meter ([employer] Ultra2 Meter kit) As directed- To test blood sugar TID cholecalciferol (vitamin D3) 50 mcg PO DAILY clopidogrel (Plavix) 75 mg PO DAILY 30 days cyclobenzaprine 5 mg PO Q8H PRN 7 days diclofenac sodium 1% (Arthritis Pain (diclofenac)) 2 grams topical QID 14 days dulaglutide 3 mg (0.5 mL) subcut QWEEK 4 weeks famotidine 20 mg PO DAILY 14 days fluoxetine 20 mg PO DAILY gabapentin 200 mg (2 x 100 mg) PO TID 30 days glimepiride 4 mg PO QAM insulin glargine (Lantus Solostar U-100 Insulin) 30 units (0.3 mL) subcut BEDTIME lancets ([employer] UltraSoft Lancets) As directed- To test blood sugar TID lorazepam 0.5 mg PO DAILY PRN losartan 50 mg PO BID 30 days naproxen 500 mg PO Q12H PRN 7 days nifedipine ER 30 mg See Protocol PO DAILY 30 days omeprazole 40 mg PO DAILY 30 days pen needle, diabetic (Pen Needle) As directed daily pioglitazone 30 mg PO DAILY zolpidem 10 mg PO BEDTIME Tobacco use date assessed: 12/19/24 Dental Screening Dental Screen Date: 12/19/24 Did you have a dental visit in the last 12 months?: Yes Did you have a dental problem in the last 6 months where you did not have access to dental care?: No Was dental information given to patient?: Patient has dentist HPI DM HPI Details Patient comes in today for her follow up visit States that she has been feeling very depressed lately since her mother a few weeks ago and admits that she has not been very compliant with her diet recently as a result but states that she is still taking all of her medications as prescribed States that she checked her blood pressure at home earlier this morning and it was around 169/78 at the time She was not able to get her follow up labs done yet but states that she can go and get them done after her visit now as she has had nothing to eat since 6 AM this morning She denies any headaches or dizziness Denies any chest pains but reports that she has been experiencing a lot of chest pressure lately and thinks that these are mostly due to her increased stress and grief She denies any increased SOB No nausea/vomiting, no abdominal pain No change in bowel habits noted [facility] Medical History Uncontrolled type 2 diabetes mellitus with hyperglycemia, with long-term current use of insulin Intracranial vascular stenosis Diabetes HTN (hypertension) CVA (cerebral vascular accident) Right thalamic stroke Obesity (BMI 30-39.9) Depression Anxiety Insomnia GERD without esophagitis Anemia, iron deficiency Lumbar degenerative disc disease Pure hypercholesterolemia Benign essential hypertension Diabetes mellitus Sciatic pain Fibromyalgia Surgical History History of surgery History of left salpingo-oophorectomy H/O bilateral breast reduction surgery History of carpal tunnel release History of appendectomy History of section History of hysterectomy Family History Father Suicide Epilepsy Mother Poor high blood pressure control Diabetes Hypertension Daughter Spina bifida Brother Stroke Other Mental health problem Social History Household Members: Significant Other Housing: Apartment Do you presently have visiting nurse or other home services: No Alcohol intake: never Patient Tobacco Use Status: Never used Tobacco e-Cigarette/Vaping Use: Never Used Second Hand Smoke Exposure: Yes service: No Current occupational status: disabled Cognitive needs: Yes (cane) Hearing needs: No Vision needs: Yes (glasses) Questionnaire PHQ-9 Over the last 2 weeks, how often have you been bothered by any of the following problems? 1. Little interest or pleasure in doing things: nearly every day 2. Feeling down, depressed, or hopeless: several days 3. Trouble falling or staying asleep, or sleeping too much: several days 4. Feeling tired or having little energy: several days 5. Poor appetite or overeating: several days 6. Feeling bad about yourself - or that you are a failure or have let yourself or your family down: several days 7. Trouble concentrating on things, such as reading the newspaper or watching television: several days 8. Moving or speaking so slowly that other people could have noticed. Or the opposite - being so fidgety or restless that you have been moving around a lot more than usual: more than half the days 9. Thoughts that you would be better off or of hurting yourself in some way: not at all Total score: 11 Depression Screening Interpretation: Positive Depression Screening Follow-up: Follow-up Visit Requested Depression Screening Done: Yes 65477 - PHQ-9 Billing: Yes Source: Developed by Drs. Casper Tamayo, Ayah Gaviria, Malik Brady and colleagues, with an educational óscar from [facility]. Thrive Questionnaire Date Thrive assessed: 12/19/24 I am a: Patient What is your living situation today?: I have a steady place to live Within the past 12 months, did the food you bought not last and you didn't have the money to get more?: Never true Within the past 12 months, did you worry whether your food would run out before you got money to buy more?: Never true Do you have trouble paying for medicines?: No Do you have trouble getting transportation to medical appointments?: No Do you have trouble paying your heating and electricity bill?: No Do you have trouble taking care of your child, family member or friend?: No Do you have trouble with day-to-day activities such as bathing, preparing meals, shopping, managing finances, etc.?: No Are you currently unemployed and looking for a job?: No Are you interested in more education?: No Please select the resources that you would like help with: None Currently or been in a relationship where the following occur: No concerns reported THRIVE Score: 0 AUDIT C Alcohol Use Questionnaire (AUDIT-C) 1. How often do you have a drink containing alcohol?: Never 3. How often do you have six or more drinks on one occasion?: Never Total Score: 0 Score Reviewed/Action Taken: Yes SAUL-7 AMB Questionnaire SAUL-7 Date ASUL - 7 assessed: 12/19/24 Feeling nervous, anxious, or on edge: 0 = Not at all Not being able to stop or control worryin = Not at all Worrying too much about different things: 0 = Not at all Trouble relaxin = Not at all Being so restless that it is hard to sit still: 0 = Not at all Becoming easily annoyed or irritable: 0 = Not at all Feeling afraid as if something awful might happen: 0 = Not at all Total SAUL-7 score (0-4 normal; 5-9 mild; 10-14 moderate; 15-21 severe): 0 Source: Developed by Drs. Casper Tamayo, Ayah Gaviria, Malik Brady and colleagues, with an educational óscar from [facility]. Review of Systems Const Denies chills, Reports difficulty sleeping, Reports fatigue, Denies fever(s) and Denies headache(s) ENT Denies dysphagia, Denies dizziness, Reports otalgia (more of a sensation of swelling in her right ear - chronic), Denies headache(s), Denies neck pain, Denies odynophagia and Denies sore throat Card Denies chest pain, Denies palpitations and Denies dyspnea Resp Denies chest congestion, Denies cough and Denies dyspnea GI Denies abdominal pain, Denies constipation, Denies dysphagia, Denies heartburn, Denies diarrhea, Denies nausea, Denies odynophagia and Denies vomiting Denies difficulty voiding, Reports nocturia, Denies dysuria and Denies urinary urgency Musc Reports back pain (over the lower back - chronic), Reports arthralgias (in the right shoulder) and Denies neck pain Skin/Breast Denies rash Neuro Denies dizziness and Denies headache(s) Psych Reports depression (increased grief ) Endo Reports fatigue and Denies palpitations Physical exam (Primary Care) Vital Signs: Last Vital Signs Pulse 96 12/19/24 15:06 BP 178/88 H 12/19/24 15:32 Pulse Ox 98 12/19/24 15:06 Oxygen Delivery Method Room Air 12/19/24 15:06 BMI result Body Mass Index 34.1 Tobacco/Smoking Status: Tobacco use Status Tobacco use date assessed 12/19/24 12/19/24 15:09 Patient Tobacco Use Status Never used Tobacco 12/19/24 15:06 e-Cigarette/Vaping Use Never Used 12/19/24 15:06 PHQ-9: PHQ-9 Score PHQ-9: Total score 11 12/19/24 15:30 Depression Screening Interpretation: Positive Depression Screening Follow-up: Follow-up Visit Requested Thrive Assessment: Date of Thrive Assessment Date Thrive assessed 12/19/24 12/19/24 15:09 Currently or been in a relationship where the following occur: No concerns reported Const General: no acute distress and alert HENMT Ears: TM's normal bilaterally and EAC's normal Throat: Yes posterior oropharynx normal and Yes tonsils normal (no TP congestion noted) Neck Neck: Yes supple and No lymphadenopathy Thyroid: Thyroid normal Resp Auscultation: clear to auscultation bilaterally, no rales and no wheezes Cardio Rate: regular rate Rhythm: regular rhythm Heart sounds: no murmurs GI Palpation (GI): Soft to palpation and nontender Auscultation: normal bowel sounds General: Yes no CVA tenderness Back/Spine/Pelvis Back: no CVA tenderness Thoracic/Lumbar Spine: lumbar spinal tenderness (mild) Skin Rashes: no rashes Extrem General: Yes no clubbing, cyanosis or edema Right upper extremity: shoulder/upper arm Details: tenderness Location: of the A-C joint Results AMB Hemoglobin A1c AMB Hemoglobin A1c 10.1 % Last Edit by DEBI Florez on 12/19/24 15:23 Results Reviewed Results Reviewed: Laboratory Last Values Hgb A1c (Clinic) 10.1 % (4.0-6.0) H 12/19/24 15:10 Coding Level of Care Code Est Pt Level 4 (99119) Diagnoses Type 2 diabetes mellitus with hyperglycemia, without long-term current use of insulin E11.65 Diabetes mellitus complication status: with hyperglycemia 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 insulin use: without computer terminal operator use Diabetes mellitus type: type 2 Pure hypercholesterolemia E78.00 Benign essential hypertension I10 Right thalamic stroke I63.9 Degeneration of intervertebral disc of lumbar region, unspecified whether pain present M51.369 Disc-related pain type: unspecified whether pain present Insomnia, unspecified type G47.00 Insomnia type: unspecified Anxiety F41.9 Episode of recurrent major depressive disorder, unspecified depression episode severity F33.9 Active/Remission status: currently active Depression Type: major depressive disorder Major depression episode severity: unspecified Major depression recurrence: recurrent Obesity (BMI 30-39.9) E66.9 Additional Codes PHQ-9 - 01384 - PHQ-9 Billing: Yes ([id number]) Assessment & Plan Assessment & Plan (1) Diabetes mellitus: Code(s): E11.9 - Type 2 diabetes mellitus without complications Category: Medical Qualifiers: Diabetes mellitus complication status: with hyperglycemia 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 insulin use: without senior living use Diabetes mellitus type: type 2 Qualified Code(s): E11.65 - Type 2 diabetes mellitus with hyperglycemia Plan: Patient's in-office HgbA1c today is at 10.1% (HgbA1c was at 9.7% a few months ago and was at 9.6% back in December 2023) - goal is at least <7.0% Reinforced diabetic diet - patient again admits to poor compliance with her diet recently, primarily due to her mother's recent passing Continue Lantus 30 units QD, Trulicity 3 mg SQ once a week, Pioglitazone 30 mg QD and Glimepiride 4 mg Q AM for now Follow up with endocrinology as scheduled (2) Pure hypercholesterolemia: Code(s): E78.00 - Pure hypercholesterolemia, unspecified Category: Medical Plan: Patient was not able to get her follow-up labs done prior to her appointment today - states that she will go and get these done now she has not eaten anything in over 8-10 hours at present She has been cautioned that despite her Atorvastatin at 80 mg daily, her cholesterol levels, especially her LDL cholesterol, have gone up further Reinforced low-cholesterol diet - patient admits to poor compliance with the diet over the past several months Continue Atorvastatin 80 mg QD for now; will consider adding Ezetimibe or switching her over to Rosuvastatin if her cholesterol numbers are still not at goal over the next few months if patient can start becoming compliant with her diet She is again cautioned that she already had stroke/CVA a few years ago in if she does not take her health seriously, she is going to end up with another stroke at some point Have also advised her that she is at a very high risk for a cardiovascular event (SC) as with her uncontrolled diabetes, she is at a significantly higher risk of developing an SC compared to an average person Will recheck her labs and fasting lipids in 3 months for follow up (3) Benign essential hypertension: Code(s): I10 - Essential (primary) hypertension Category: Medical Plan: Reinforced low-sodium diet - goal is systolic BP of 120 to 130 mm or less Continue Nifedipine ER 30 mg Q AM Will now increase her Losartan to 50 mg BID (4) Right thalamic stroke: Code(s): I63.9 - Cerebral infarction, unspecified Category: Medical Plan: MRI of the brain in November 2020 showed (+) acute lacunar infarct involving the right thalamus Patient does not appear to have any significant residual neurologic or physical deficits from her CVA Continue Aspirin 81 mg QD and Clopidogrel 75 mg QD Have emphasized to patient again the importance of better control of her blood pressure, blood sugar and cholesterol to prevent recurrence of her CVA and with all these 3 currently not well-controlled (mostly due to non-compliance with her diet, per patient's own admission), she is currently at a high risk of CVD or recurrence of her CVA Follow-up with neurology as scheduled or as needed - she was reportedly advised at her most recent neurology follow up that she does not need to see them regularly from now on and only on an as-needed basis (5) Lumbar degenerative disc disease: Code(s): M51.36 - Other intervertebral disc degeneration, lumbar region Category: Medical Qualifiers: Disc-related pain type: unspecified whether pain present Qualified Code(s): M51.369 - Other intervertebral disc degeneration, lumbar region without mention of lumbar back pain or lower extremity pain Plan: Reinforced activity and weight-lifting restrictions Continue Gabapentin 400 mg BID Lumbar spine x-rays done in July 2021 revealed mild multilevel degenerative disc disease with lower lumbar spine facet arthropathy, unchanged. Stable, chronic grade 1 anterolisthesis of L5 on S1. No acute osseous abnormality (6) Insomnia: Code(s): G47.00 - Insomnia, unspecified Category: Medical Qualifiers: Insomnia type: unspecified Qualified Code(s): G47.00 - Insomnia, unspecified Plan: Sleep hygiene reinforced Continue Zolpidem 10 mg once a day at bedtime as needed (7) Anxiety: Code(s): F41.9 - Anxiety disorder, unspecified Category: Medical Plan: Continue Lorazepam 0.5 mg 1 tablet once a day as needed (8) Depression: Code(s): F32.9 - Major depressive disorder, single episode, unspecified Category: Medical Qualifiers: Active/Remission status: currently active Depression Type: major depressive disorder Major depression episode severity: unspecified Major depression recurrence: recurrent Qualified Code(s): F33.9 - Major depressive disorder, recurrent, unspecified Plan: Continue Fluoxetine 20 mg once a day in the morning - this has gotten worse lately due to her mother's recent passing away a few weeks ago Follow-up with Psychiatry as scheduled (9) Obesity (BMI 30-39.9): Code(s): E66.9 - Obesity, unspecified Category: Medical Plan: Reinforced diet/exercise as tolerated/lose weight Plan Follow up in 3 months Orders: Orders AMB Hemoglobin A1c 12/19/ Z13.9 - Encounter for screening, unspecified Hemoglobin A1c 3 Months E11.9 - Type 2 diabetes mellitus without complications Complete Blood Count Auto Diff 3 Months D64.9 - Anemia, unspecified Comprehensive [place]. Panel Fast 3 Months E78.00 - Pure hypercholesterolemia, unspecified Microalbumin, Random (w Creat) 3 Months E11.9 - Type 2 diabetes mellitus without complications TSH reflex Free T4 3 Months E78.00 - Pure hypercholesterolemia, unspecified UA CC w/rflx Micro + Cult 3 Months R30.0 - Dysuria Vitamin D 25-OH Total 3 Months E55.9 - Vitamin D deficiency, unspecified Lipid Panel 3 Months E78.00 - Pure hypercholesterolemia, unspecified Vitamin B12 and Folate 3 Months E53.8 - Deficiency of other specified B group vitamins Medications: Changed From losartan 50 mg PO BEDTIME 30 tabs 3RF I10 - Essential (primary) hypertension To losartan 50 mg PO BID 60 tabs 3RF 30 days I10 - Essential (primary) hypertension
--- OUTSIDE RECORDS SUMMARY | 2024-12-19 15:05 | XMS_ITS | Clinical Summary ---
Author Organization [facility] Address [address] [place] [address] Care Team Providers Care Wildlife Officer Name Role Phone Unavailable Primary Care Provider [...] Noted Date Diagnosed Date Hypertension 05/03/2023 Diabetes ([facility]) 05/03/2023 Social History Tobacco Use Types Packs/Day [...] 10/27/1979 Imm-DTaP/Tdap/Td (1 - Tdap) 1980 Imm-Pneumococcal 50+ (1 of 2 - PCV) 1980 Cervical Cancer Screening 1982 Pap Smear 1982 Breast Cancer Screening (Mammogram) 2001 CT Colonography 2006 Colonoscopy 2006 Colorectal Cancer Screening 2006 FIT/gFOBT 2006 Fecal DNA 2006 Flexible Sigmoidoscopy 2006 Imm-Zoster, Recombinant (1 of 2) 10/27/2011 Alcohol and Drug Screen 04/16/2024 Depression Annual Screen 04/16/2024 Dental BW 05/05/2024 05/03/2023 Dental Examination 05/05/2024 05/03/2023 Dental Perio Charting 05/05/2024 05/03/2023 [id number] ( season) 2024 Imm-Influenza (#1) 2024 Dental FMX/Pano 05/05/2028 05/03/2023 Cervical Ablation/Cold-Knife [...] Most Recently Relevant to Health Maintenance [place] [facility] - [facility]
[2024-12-19 15:06] VITALS: BP 190/72; PULSE 96; O2SAT 98; BMI 34.1
[2024-12-19 15:32] VITALS: BP 178/88
== END 2024-12-19 15:43 | disposition home or self-care (01) ==
LOC: HO.HMCH 15:04
PROVIDERS: PCP Internal Medicine; Visit Provider Internal Medicine
DX: Z13.9 Encounter for screening, unspecified (principal)

== ENCOUNTER 2024-12-19 15:03 | Outpatient (REF) | payer OTHER, SELFPAY ==
[2024-12-19 16:08] LABS: MANUAL DIFF FLAG NO
[2024-12-19 17:08] LABS: Hematocrit 35.8 % (37.0-47.0); Hemoglobin 12.1 g/dl (12.0-16.0); Imm Gran Abs Auto 0.03 X10*3/uL (0.00-0.03); Imm Gran Pct Auto 0.3 % (0.0-0.4); Lymphocytes Absolute Auto 2.8 X10*3/uL (1.2-4.9); Mean Corpuscular HGB Conc 33.8 g/dl (31.0-35.0); Mean Corpuscular Hemoglobin 28.1 pg (27.0-33.0); Mean Corpuscular Volume 83.3 fL (80.0-98.0); NRBC Abs Auto 0.000 X10*3/uL (0.0-0.012); NRBC Pct Auto 0.0 /100WBC (0.0-0.2); Platelet Count 495 X10*3/uL (160-400); Red Blood Count 4.30 X10*6/uL (4.20-5.50); White Blood Count 9.7 X10*3/uL (4.8-10.8)
[2024-12-19 18:29] LABS: Alanine Aminotransferase 19 U/L (0-31); Albumin Level 4.2 g/dL (3.5-5.0); Alkaline Phosphatase 102 U/L (39-117); Anion Gap 17 (12-20); Aspartate Amino Transferase 26 U/L (5-31); Blood Urea Nitrogen 13 mg/dL (9-16); Calcium 9.3 mg/dL (8.4-10.2); Carbon Dioxide 27 mmol/L (22-29); Chloride 102 mmol/L (96-108); Cholesterol 215 mg/dL (<200); Estimated Glomerular Filt Rate 52; HDL Cholesterol 46 mg/dL (>40); Potassium 3.8 mmol/L (3.3-5.1); Sodium 142 mmol/L (135-145); Total Protein 8.0 g/dL (6.5-8.0); Triglycerides 145 mg/dL (<150)
[2024-12-19 18:52] LABS: Folate 10.1 ng/mL (> or = 4.0); Vitamin B12 434 pg/mL (200-900)
== END 2024-12-19 15:04 | disposition home or self-care (01) ==
LOC: HO.LAB 15:03
PROVIDERS: PCP Internal Medicine; Visit Provider Internal Medicine
DX: E53.8 Deficiency of other specified B group vitamins (principal); D64.9 Anemia, unspecified; E78.00 Pure hypercholesterolemia, unspecified; E55.9 Vitamin D deficiency, unspecified; R30.0 Dysuria; I10 Essential (primary) hypertension; M51.369 Other intervertebral disc degeneration, lumbar region without mention of lumbar back pain or lower extremity pain; G47.00 Insomnia, unspecified; F41.9 Anxiety disorder, unspecified; F33.9 Major depressive disorder, recurrent, unspecified; E66.9 Obesity, unspecified; I63.9 Cerebral infarction, unspecified; Z79.82 Long term (current) use of aspirin; Z79.4 Long term (current) use of insulin; Z79.899 Other long term (current) drug therapy; Z68.34 Body mass index [BMI] 34.0-34.9, adult
CPT/HCPCS: 36415; 80053; 80061; 82306; 82607; 82746; 83036; 84443; 84681; 85025; 86341; 96127; 99212

== ENCOUNTER 2025-01-05 14:35 | Inpatient (IN) | payer OTHER, SELFPAY ==
--- NOTE | ~2025-01-05 | MR_ITS ---
EXAMINATION: MR BRAIN WITHOUT CONTRAST CLINICAL INFORMATION: Right-sided numbness. Blurred vision. COMPARISON: November 19, 2020. Correlated to recent CT head dated January 05, 2025. TECHNIQUE: MRI of the brain was obtained using routine sequences without contrast. FINDINGS: No restricted diffusion. No acute intracranial hemorrhage, mass effect, midline shift, hydrocephalus or herniation. Bilateral multifocal patchy and punctate deep periventricular white matter and subcortical white matter hyperintense T2 FLAIR signal involving centrum semiovale and zabala radiata and kitty. Multifocal old lacunar infarcts, basal ganglia and thalami and zabala radiata white matter. Flow-void signal within the main cerebral vessels is normal. Posterior cranial fossa contents demonstrated normal position of the cerebellar tonsils. Punctate susceptibility signal, left caudate nucleus likely old microhemorrhage. Sellar/suprasellar region demonstrated no signal abnormality or masses. Prominence of the extra-axial CSF spaces cerebral sulci and ventricles. MR/MR head/brain wo con IMPRESSION: No acute stroke/nonhemorrhagic ischemia. Extensive white matter disease and old lacunar infarcts likely related to small vessel occlusive disease. Demyelinating process seems less likely. Electronically signed by: Anshu Watson MD 01/06/2025 01:14 PM EDT
--- NOTE | ~2025-01-05 | CT_ITS ---
CLINICAL HISTORY: right side numbness CT angiography head and neck with contrast. 3D Postprocessing. Comparison: None provided Findings: [id number]-[id number] soft atheromatous plaque of the carotid bulbs and proximal internal carotid arteries. Moderate to severe calcified atherosclerotic disease of the cavernous portion of the internal carotid arteries. Intracranial arteries are patent. No aneurysm, dissection, hemodynamically significant stenoses, or occlusion. No abnormal intracranial enhancement. The visualized thyroid gland is unremarkable. No cervical mass or fluid collection. Lung apices clear. No acute fracture. Empty sella. IMPRESSION: 1. No acute intracranial findings. 2. Kpcp-[id number] soft atheromatous plaque of the carotid bulbs and proximal internal carotid arteries. 3. Moderate to severe calcified atherosclerotic disease of the cavernous portion of the internal carotid arteries. 4. Empty sella. This document has been electronically signed by: Marty Luque MD on 01/05/2025 20:49:19
[2025-01-05 14:37] VITALS: BP 186/84; PULSE 103; RESP 16; TEMP 36.4; O2SAT 98; BMI 32.3
--- NOTE | 2025-01-05 14:41 | ED.GENADULT ---
HPI - General Adult General Chief complaint: General Medical Stated complaint: R sided body/ numbness. Hx f 2 strokes Time Seen by Provider: 01/05/25 18:49 Source: patient Mode of arrival: ambulatory Limitations: no limitations History of Present Illness ED Provider: DR. Guardado HPI narrative: [age] year old female pertinent past medical history of hypertension, HLD, dm, thalamic stroke, anxiety, depression patient woke up this morning at 11:00 noticed to have right-sided numbness (patient has chronic right thigh numbness ) numbness was involving right side of the whole entire body. With no speech problem, felt slight weakness in the right hand, and blurry vision, patient waited at home for 2 hours before presenting to the hospital hoping that she gets better, because her symptoms persist came to the hospital today, patient reported slight numbness on right side of the face otherwise improvement of the numbness of the right side of the body, improvement of the blurry vision. No headache, no dizziness, no nausea, no vomiting, no CP, no abdominal pain. Related Data Home Medications ?Medication ?Instructions ?Recorded ?Confirmed fluoxetine 20 mg capsule 20 mg PO DAILY 11/12/20 12/19/24 lorazepam 0.5 mg tablet 0.5 mg PO DAILY PRN Anxiety 11/12/20 12/19/24 zolpidem 10 mg tablet 10 mg PO BEDTIME 11/12/20 12/19/24 Previous Rx's ?Medication ?Instructions ?Recorded BLOOD PRESSURE MONITOR #1 ea 11/26/20 blood-glucose meter (OneTouch #1 ea 10/19/21 Ultra2 Meter kit) pen needle, diabetic 31 gauge x #100 ea 01/31/2204/19 (Pen Needle) lancets (OneTouch UltraSoft #200 ea 06/19/22 Lancets) famotidine 20 mg tablet 20 mg PO DAILY 14 days #14 tabs 05/28/23 omeprazole 40 mg capsule,delayed 40 mg PO DAILY 30 days #30 caps 02/13/24 release acetaminophen 500 mg capsule 1,000 mg (2 x 500 mg) PO Q6H PRN 02/26/24 pain #20 caps cholecalciferol (vitamin D3) 50 50 mcg PO DAILY #90 tabs 03/04/24 mcg (2,000 unit) tablet glimepiride 4 mg tablet 4 mg PO QAM #90 tabs 03/04/24 blood sugar diagnostic (OneTouch #100 ea 04/30/24 Ultra Test strips) insulin glargine 100 unit/mL (3 30 unit (0.3 mL) subcut BEDTIME 06/03/24 mL) subcutaneous pen (Lantus #30 mL Solostar U-100 Insulin) diclofenac sodium 1 % topical gel 2 g topical QID 14 days #100 grams 09/05/24 (Arthritis Pain (diclofenac)) gabapentin 100 mg capsule 200 mg (2 x 100 mg) PO TID 30 days 09/05/24 #180 caps dulaglutide 3 mg/0.5 mL 3 mg (0.5 mL) subcut QWEEK 4 weeks 09/17/24 subcutaneous pen injector #2 mL pioglitazone 30 mg tablet 30 mg PO DAILY #90 tabs 09/26/24 cyclobenzaprine 5 mg tablet 5 mg PO Q8H PRN Muscle Spasm 7 10/14/24 days #21 tabs naproxen 500 mg tablet 500 mg PO Q12H PRN pain 7 days #20 10/14/24 tabs aspirin 81 mg chewable tablet 81 mg PO DAILY #30 tabs 10/15/24 atorvastatin 80 mg tablet 80 mg PO BEDTIME #30 tabs 12/10/24 clopidogrel 75 mg tablet (Plavix) 75 mg PO DAILY 30 days #30 tabs 12/10/24 nifedipine 30 mg tablet,extended 30 mg PO DAILY 30 days #30 tabs 12/10/24 release 24 hr losartan 50 mg tablet 50 mg PO BID 30 days #60 tabs 12/19/24 Allergies Allergy/AdvReac Type Severity Reaction Status Date / Time ibuprofen (From Motrin) Allergy Mild STOMACH Verified 01/05/25 14:43 UPSET oxycodone (From Percocet) Allergy Mild ITCHING Verified 01/05/25 14:43 lactose (LACTOSE) Allergy Unknown ABD PAIN Verified 01/05/25 14:43 metformin AdvReac Unknown nausea, Verified 01/05/25 14:43 somnolence amlodipine AdvReac Swelling Verified 01/05/25 14:43 Review of Systems Review of Systems: All other systems are reviewed and are negative Constitutional: Reports as per HPI and Reports no additional constitutional complaints Eyes: Reports as per HPI and Reports no additional eye complaints Reports system reviewed and no additional complaints, except as documented Cardiovascular: Reports as per HPI and Reports no additional cardiovascular complaints Respiratory: Reports as per HPI and Reports no additional respiratory complaints Gastrointestinal: Reports as per HPI and Reports no additional gastrointestinal complaints Genitourinary: Reports no additional female genitourinary complaints Musculoskeletal: Reports no additional musculoskeletal complaints Skin/Breast: Reports system reviewed and no additional complaints, except as docu Psychiatric: Reports no additional psychiatric complaints Endocrine: Reports no additional endocrine complaints Hematologic/Lymphatic: Reports no additional hematologic/lymphatic complaints Allergic/Immunologic: Reports no additional allergic/immunologic complaints Reports system reviewed and no additional complaints, except as documented and Reports Abnormal speech present [facility] Past Medical History Medical History Uncontrolled type 2 diabetes mellitus with hyperglycemia, with long-term current use of insulin Intracranial vascular stenosis Diabetes HTN (hypertension) CVA (cerebral vascular accident) Right thalamic stroke Obesity (BMI 30-39.9) Depression Anxiety Insomnia GERD without esophagitis Anemia, iron deficiency Lumbar degenerative disc disease Pure hypercholesterolemia Benign essential hypertension Diabetes mellitus Sciatic pain Fibromyalgia Surgical History History of surgery History of left salpingo-oophorectomy H/O bilateral breast reduction surgery History of carpal tunnel release History of appendectomy History of section History of hysterectomy Family History Family History Father Suicide Epilepsy Mother Poor high blood pressure control Diabetes Hypertension Daughter Spina bifida Brother Stroke Other Mental health problem Social History Social History Household Members: Significant Other Housing: Apartment Do you presently have visiting nurse or other home services: No Alcohol intake: never Patient Tobacco Use Status: Never used Tobacco e-Cigarette/Vaping Use: Never Used Second Hand Smoke Exposure: Yes Advance Directives: No Advance Directives Information Provided: Yes service: No Current occupational status: disabled Cognitive needs: Yes (cane) Hearing needs: No Vision needs: Yes (glasses) Physical Exam ED Vital Signs: Vital Signs - 24 hr 01/05/25 14:37 01/05/25 19:12 Temperature 97.5 F 98.4 F Pulse Rate 103 H 104 H Respiratory Rate 16 18 Blood Pressure 186/84 H 198/98 H Pulse Oximetry 98 99 Oxygen Delivery Method Room Air Room Air BMI result Body Mass Index 32.3 Vital signs have been reviewed and appear to be correct. Blood pressure elevated. Heart rate elevated. Respiratory rate normal. Temperature normal. Oxygen saturation normal. Appearance: Alert. Oriented X3. No acute distress. Head: Normal external exam. Normocephalic. Atraumatic. No Rodriguez signs noted. No raccoon eyes noted Eyes: PERRLA. EOMI. Conjunctiva and sclera normal. Eyelids normal. ENT: TM's Normal. Pharynx normal. Uvula midline. Moist mucous membranes. No trismus noted. No drooling noted. No muffled voice noted. Neck: Normal inspection. Neck supple. FROM. No adenopathy. Thyroid Normal. No meningeal signs. No neck mass noted. CVS: Normal heart rate and rhythm. Heart sound normal. No murmurs noted. Pulses normal throughout. Respiratory: No respiratory distress. Painless inspiration. Breath sounds normal. No wheezes/rales/rhonchi noted. Chest nontender. No accessory muscle usage noted or decreased air movement noted. Abdomen: Soft and nontender. Bowel sounds normal in all 4 quadrants. No distention noted. No organomegaly noted. No visible injury noted. Back: No CVA tenderness. Full range of motion noted. Skin: Skin warm and dry. Normal skin color. Normal skin turgor. No rashes/lesions/lacerations noted. Extremities: No lower extremity edema. Extremities exhibit normal range of motion. Extremities nontender. Neuro: Mental status: Normal attention, orientation, memory, and affect. Cranial nerves: Pupils are equal, round and reactive to light, EOMI, visual billy are fall, face is symmetric, facial sensations are normal. Motor examination normal muscle tone, strength to 4 extremities. DTR are +2, planter's are flexor. Sensory exam; normal coordination, no ataxia, gait stable. Cerebellar exam: [id number] and vzxl-ry-[id number] is normal. Extrapyramidal system: No tremors, no rigidity with normal facial expressions. Pronator drift not present NIH Stroke Scale Time: 19:05 Level of Consciousness: Alert Level of Consciousness Questions: Answers both questions correctly Level of Consciousness Commands: Performs both tasks correctly Best Gaze: Normal Visual: No visual loss Facial Palsy: Normal Motor Arm (Right): No drift Motor Arm (Left): No drift Motor Leg (Right): No drift Motor Leg (Left): No drift Limb Ataxia: Absent Sensory: Normal Best Language: No aphasia Dysarthia: Normal Extinction and Inattention: No abnormality Score: 0 Course Course Course Narrative: This is a Rapid Medical Examination (RME) performed by Lai Burns PA-C in triage. Full HPI, ROS, assessment and treatment plan per primary provider in the Main ED. Hx: 64 yo F hx of T2DM, GERD, fibromyalgia, anemia, HTN, CVA x2 on clopiogrel here for eval of intermittent numbness to entire right sided of body (face to toes) and bilateral blurred vision x a while. has mentioned this to her PCP, attributed it to her blood sugars. PE/vitals: NIH 0. sensation intact. Plan: labs, ekg, CT head Reevaluation(s) Reevaluation #1: patient is not a candidate for thrombolysis or mechanical thrombectomy because of resolution of her symptoms. CT/CTA unremarkable for acute findings patient needs no acute intervention at this point. Time: 19:07 Medications Administered Discontinued Medications Generic Name Dose Route Start Last Admin Trade Name Freq PRN Reason Stop Dose Admin Iohexol 85 ml 01/05/25 20:01 01/05/25 20:04 Iohexol 350 Mg/Ml 100 Ml Infus..Btl IV 01/05/25 20:02 75 ml ONCE ONE Administration Medical Decision Making Differential Diagnosis Differential Diagnoses: The differential diagnosis associated with the presentation includes ( hemorrhagic stroke, ischemic stroke, electrolyte derangement, TIA, ACS, electrolyte derangement, severe anemia.) Admission/Observation Consideration of admission/observation: Escalation of care including admission/observation considered Lab Data MDM Lab Attestation statement: I reviewed the patient's lab results. 01/05/25 15:29 01/05/25 15:29 Labs: Lab Results 01/05/25 01/05/25 Range/Units 15:29 20:17 WBC 9.0 (4.8-10.8) X10*3/uL RBC 4.13 L (4.20-5.50) X10*6/uL Hgb 11.6 L (12.0-16.0) g/dl Hct 34.5 L (37.0-47.0) % MCV 83.5 (80.0-98.0) fL MCH 28.1 (27.0-33.0) pg MCHC 33.6 (31.0-35.0) g/dl RDW 12.6 (11.0-16.0) % Plt Count 431 H (160-400) X10*3/uL MPV 8.8 L (9.4-12.3) fL Immature Gran % (Auto) 0.4 (0.0-0.4) % Neut % (Auto) 67.0 (45-73) % Lymph % (Auto) 23.4 (20-40) % [place] % (Auto) 7.0 (2-11) % Eos % (Auto) 1.9 (0-4) % Baso % (Auto) 0.3 (0-2) % Lymph # (Auto) 2.1 (1.2-4.9) X10*3/uL [place] # (Auto) 0.6 (0.1-1.2) X10*3/uL Eos # (Auto) 0.2 (0.0-0.4) X10*3/uL Baso # (Auto) 0.0 (0.0-0.2) X10*3/uL Abs Immat Gran (auto) 0.04 H (0.00-0.03) X10*3/uL Absolute Neuts (auto) 6.0 (2.0-8.3) x10*3/uL Absolute Nucleated RBC 0.000 (0.0-0.012) X10*3/uL Nucleated RBC % (auto) 0.0 (0.0-0.2) /100WBC Sodium 138 (135-145) mmol/L Potassium 3.6 (3.3-5.1) mmol/L Chloride 102 (96-108) mmol/L Carbon Dioxide 28 (22-29) mmol/L Anion Gap 12 (12-20) BUN 12 (9-16) mg/dL Creatinine 0.96 (0.5-1.4) mg/dL Estim Creat Clear Calc 52.0 Estimated GFR 59 Random Glucose 234 H (60-115) mg/dL Calcium 9.3 (8.4-10.2) mg/dL Magnesium 2.0 (1.6-2.6) mg/dL Total Bilirubin 0.2 (0.0-1.0) mg/dL AST 24 (5-31) U/L ALT 19 (0-31) U/L Alkaline Phosphatase 97 (39-117) U/L Total Protein 7.7 (6.5-8.0) g/dL Albumin 4.1 (3.5-5.0) g/dL Urine Color Yellow Urine Appearance Clear Urine pH 7.0 (5.0-9.0) Ur Specific [place] 1.010 (1.005-1.025) Urine Protein 30 (1+) H (Neg-Trace) mg/dL Urine Glucose (UA) >=1000 H (Negative) mg/dL Urine Ketones Negative (Negative) mg/dL Urine Blood Negative (Negative) Urine Nitrite Negative (Negative) Ur Leukocyte Esterase Trace H (Negative) Urine RBC 0-2 (0-2) /HPF Urine WBC 0-5 (0-5) /HPF Ur Squamous Epith Cells 0-2 (0-2) /HPF Urine Bacteria None Seen (None Seen) Hyaline Casts 0-2 (0-2) /LPF Independent Interpretation I performed an independent interpretation of an: Plain X-Ray ( chest: No acute cardiopulmonary disease.) and CT Scan ( Head: No acute intracranial abnormality/ CTA head and neck:1. No acute intracranial findings. 2. [id number] soft atheromatous plaque of the carotid bulbs and proximal internal carotid arteries. 3. Moderate to severe calcified atherosclerotic disease of the cavernous portion of the internal) Radiology Impression Discussion of test interpretation with radiology: I have reviewed the radiologist's reading. Discharge Plan Discharge Clinical Impression: Brain TIA Patient Disposition: Admitted As Inpatient Print Language: Arabic
[2025-01-05 15:46] LABS: MANUAL DIFF FLAG NO
[2025-01-05 15:50] LABS: Hematocrit 34.5 % (37.0-47.0); Hemoglobin 11.6 g/dl (12.0-16.0); Imm Gran Abs Auto 0.04 X10*3/uL (0.00-0.03); Imm Gran Pct Auto 0.4 % (0.0-0.4); Lymphocytes Absolute Auto 2.1 X10*3/uL (1.2-4.9); Mean Corpuscular HGB Conc 33.6 g/dl (31.0-35.0); Mean Corpuscular Hemoglobin 28.1 pg (27.0-33.0); Mean Corpuscular Volume 83.5 fL (80.0-98.0); NRBC Abs Auto 0.000 X10*3/uL (0.0-0.012); NRBC Pct Auto 0.0 /100WBC (0.0-0.2); Platelet Count 431 X10*3/uL (160-400); Red Blood Count 4.13 X10*6/uL (4.20-5.50); White Blood Count 9.0 X10*3/uL (4.8-10.8)
[2025-01-05 16:02] LABS: Alanine Aminotransferase 19 U/L (0-31); Albumin Level 4.1 g/dL (3.5-5.0); Alkaline Phosphatase 97 U/L (39-117); Anion Gap 12 (12-20); Aspartate Amino Transferase 24 U/L (5-31); Blood Urea Nitrogen 12 mg/dL (9-16); Calcium 9.3 mg/dL (8.4-10.2); Carbon Dioxide 28 mmol/L (22-29); Chloride 102 mmol/L (96-108); Creatinine Clr Calc Pharmacy 52.0; Estimated Glomerular Filt Rate 59; Magnesium 2.0 mg/dL (1.6-2.6); Potassium 3.6 mmol/L (3.3-5.1); Sodium 138 mmol/L (135-145); Total Protein 7.7 g/dL (6.5-8.0)
--- OUTSIDE RECORDS SUMMARY | 2025-01-05 18:29 | XMS_ITS | Clinical Summary ---
Author Organization [facility] Address [address] [place] [address] Care Team Providers Care Mitigation Supervisor Name Role Phone Unavailable Primary Care [...] Noted Date Diagnosed Date Hypertension 05/03/2023 Diabetes ([facility]) 05/03/2023 Social History Tobacco Use [...] 05/05/2024 05/03/2023 Dental Perio Charting 05/05/2024 05/03/2023 [id number] ( season) 2024 Imm-Influenza (#1) 2024 Dental [...] Most Recently Relevant to Health Maintenance Insurance [place] MEDICAID DENTAL [facility] - D[facility]AL
[2025-01-05 19:12] VITALS: BP 198/98; PULSE 104; RESP 18; TEMP 36.9; O2SAT 99
--- NOTE | 2025-01-05 19:24 | PC.NURSE ---
assumed care of pt, states mild headache 2/10, denies vision changes, visual equity test ordered.
[2025-01-05] MEDS: iohexoL 350 MG/ML 100 ML INFUS..BTL 85 ML IV (20:04)
[2025-01-05 20:25] LABS: Appearance Urine Clear; Glucose Urine UA >=1000 mg/dL (Negative); PH 7.0 (5.0-9.0); Specific Gravity - Urine 1.010 (1.005-1.025); UMIC TRIGGER UACC YES
[2025-01-05 21:04] LABS: Glucose, Whole Blood 192 mg/dL (60-115)
--- NOTE | 2025-01-05 21:23 | PC.NURSE ---
pt medicated per JUN, pharmacy at bedside doing ed req.
--- NOTE | 2025-01-05 21:57 | PHA.MEDREC ---
Addendum entered by Blank Swartz RPh 01/05/25 22:09: Reviewed by [facility] Original Note: Pharmacy Consult ? Medication Reconciliation Pharmacy has completed the medication reconciliation. Spoke with pt and she confirmed her medications. Pt confirmed her; Trulicity once a week on and confirmed she last took it 01/01, Gabapentin 100mg is now taking 200mg BID instead of TID; pt states her Dr changed that ~2 months ago and Lantus insulin and confirmed she injects 14 units at bedtime but states if her sugar levels go above 300 she injects 20 units at bedtime.
--- NOTE | 2025-01-05 22:09 | MHC.EDTECH ---
visual acuity completed at this time. unknown of pt visual baseline. Pt states her vision is more blurry than usual. She states it feels like there is a jelly in her eye that I can't wipe away.
--- NOTE | 2025-01-05 23:55 | PM.IMHP ---
History of Present Illness Date of Service: 01/05/25 Attending physician on admission: Ilia Dillard Chief Complaint: numbness Patient is a 64-year-old female with a past medical history significant for history of thalamic stroke, insulin-dependent diabetes, hypertension, anxiety, CAD, class 1 obesity, who presented to the ED due to right-sided numbness occurring intermittently for the past few days. The patient reports additional blurry vision as well as right upper extremity and right lower extremity numbness which has improved however still feels this on her face. Earlier today she took a nap to try to sleep off her symptoms but they did not improve. She does have chronic right thigh numbness however the numbness was beyond the right thigh which has since improved. She denies any chest pain, shortness of breath, nausea, vomiting, abdominal pain or urinary symptoms. Review of Systems Constitutional: Constitutional: Denies body ache(s), Denies chills, Denies fatigue, Denies fever(s) and Denies headache(s) Eyes: Eyes: Reports blurry vision ENT: Denies headache(s), Denies nasal discharge and Denies sore throat Cardiovascular: Cardiovascular: Denies chest pain, Denies rapid heart rate, Denies leg edema, Denies lightheadedness and Denies dyspnea Respiratory: Respiratory: Denies chest congestion, Denies cough, Denies dyspnea and Denies wheezing Gastrointestinal: Gastrointestinal: Denies abdominal pain, Denies nausea and Denies vomiting Genitourinary: Genitourinary: Denies dysuria and Denies urinary urgency Musculoskeletal: Musculoskeletal: Denies back pain and Denies myalgias Integumentary/Breasts: Skin/Breast: Denies rash Neurologic: Denies confusion and Denies headache(s) Psychiatric: Psychiatric: Denies confusion Endocrine: Endocrine: Denies fatigue Hematologic/Lymphatic: Hematologic/Lymphatic: Denies easy bleeding and Denies easy bruising Allergic/Immunologic: Allergic/Immunologic: Denies wheezing [facility] [place] Medical History Uncontrolled type 2 diabetes mellitus with hyperglycemia, with long-term current use of insulin Intracranial vascular stenosis Diabetes HTN (hypertension) CVA (cerebral vascular accident) Right thalamic stroke Obesity (BMI 30-39.9) Depression Anxiety Insomnia GERD without esophagitis Anemia, iron deficiency Lumbar degenerative disc disease Pure hypercholesterolemia Benign essential hypertension Diabetes mellitus Sciatic pain Fibromyalgia Family History Father Suicide Epilepsy Mother Poor high blood pressure control Diabetes Hypertension Daughter Spina bifida Brother Stroke Other Mental health problem Surgical History History of surgery History of left salpingo-oophorectomy H/O bilateral breast reduction surgery History of carpal tunnel release History of appendectomy History of section History of hysterectomy Social History Household Members: Significant Other Housing: Apartment Do you presently have visiting nurse or other home services: No Alcohol intake: never Patient Tobacco Use Status: Never used Tobacco e-Cigarette/Vaping Use: Never Used Second Hand Smoke Exposure: Yes Advance Directives: No Advance Directives Information Provided: Yes Nutrition Risks: No Nutritional Risk service: No Current occupational status: disabled Cognitive needs: Yes (cane) Hearing needs: No Vision needs: Yes (glasses) Meds Allergies Allergy/AdvReac Type Severity Reaction Status Date / Time ibuprofen (From Motrin) Allergy Mild STOMACH Verified 01/05/25 14:43 UPSET oxycodone (From Percocet) Allergy Mild ITCHING Verified 01/05/25 14:43 lactose (LACTOSE) Allergy Unknown ABD PAIN Verified 01/05/25 14:43 metformin AdvReac Unknown nausea, Verified 01/05/25 14:43 somnolence amlodipine AdvReac Swelling Verified 01/05/25 14:43 Active Medications: Current Medications Acetaminophen (Acetaminophen 325 Mg Tablet) 650 mg PO Q6H PRN PRN Reason: Pain, Mild 1-3,fever,headache Aspirin (Aspirin Enteric Coated 81 Mg Tablet.Dr) 81 mg PO DAILY CHRIS Atorvastatin Calcium (Atorvastatin Calcium 80 Mg Tablet) 80 mg PO DAILY CHRIS Calcium Carbonate (Calcium Carbonate 750 Mg Tab.Chew) 750 mg PO Q4H PRN PRN Reason: Heartburn Dextrose (Dextrose 50 % 25 Gm/50 Ml Syringe) 25 gm IVPUSH Q15M PRN; Protocol PRN Reason: per Hypoglycemia Standing Ord. Glucose (Glucose Gel 15 Gm Gel..Gram.) 15 gm PO Q15M PRN; Protocol PRN Reason: per Hypoglycemia Standing Ord. Insulin Human Lispro (Insulin Lispro 100 Unit/Ml 3 Ml Vial) 0 unit SUBCUT [facility]; Protocol Last Admin: 01/05/25 21:17 Dose: 2 unit Magnesium Hydroxide (Milk Of Magnesia 30 Ml Oral.Susp) 30 ml PO DAILY PRN PRN Reason: Constipation Melatonin (Melatonin 3 Mg Tablet) 6 mg PO BEDTIME PRN PRN Reason: Insomnia Sodium Chloride (0.9 % Sodium Chloride Flush 3 Ml Syringe) 3 ml IVFLUSH [facility] Home Medications ?Medication ?Instructions ?Recorded ?Confirmed ?Last Taken ?Type fluoxetine 20 mg capsule 20 mg PO DAILY 11/12/20 01/05/25 01/04/25 History lorazepam 0.5 mg tablet 0.5 mg PO DAILY PRN Anxiety 11/12/20 01/05/25 10/02/21 History zolpidem 10 mg tablet 10 mg PO BEDTIME 11/12/20 01/05/25 01/04/25 History dulaglutide 3 mg/0.5 mL 3 mg subcut TH 01/05/25 01/05/25 01/01/25 History subcutaneous pen injector gabapentin 100 mg capsule 200 mg PO BID 01/05/25 01/05/25 01/04/25 History glimepiride 4 mg tablet 4 mg PO DAILY 01/05/25 01/05/25 01/04/25 History insulin glargine 100 unit/mL (3 14 unit subcut BEDTIME 01/05/25 01/05/25 01/04/25 History mL) subcutaneous pen (Lantus Solostar U-100 Insulin) losartan 50 mg tablet 50 mg PO BEDTIME 01/05/25 01/05/25 01/04/25 History Physical Exam Vital Signs and Narrative: Vital Signs: Last Vital Signs Temp 98.4 F 01/05/25 19:12 Pulse 104 H 01/05/25 19:12 Resp 18 01/05/25 19:12 BP 198/98 H 01/05/25 19:12 Pulse Ox 99 01/05/25 19:12 O2 Del Method Room Air 01/05/25 19:12 BMI result Body Mass Index 32.3 General: AOx3, no acute distress Resp: CTA bilaterally CVS: S1, S2, RRR GI: +BS, NT, no distention Skin: Warm, dry Neuro: Cranial nerves II-XII grossly intact bilaterally. Motor grossly intact bilaterally. slight weakness RLE and RUE. sensation intact equal bilaterally. Extremities: No pitting edema Psych: Appropriate affect Const: General: No confusion Orientation/consciousness: No confusion Neuro: General: No confusion Results Labs 01/05/25 15:29 01/05/25 15:29 Labs: Laboratory Results - last 24 hr 01/05/25 01/05/25 01/05/25 15:29 20:17 21:00 MCV 83.5 MCH 28.1 MCHC 33.6 RDW 12.6 Plt Count 431 H MPV 8.8 L Immature Gran % (Auto) 0.4 Neut % (Auto) 67.0 Lymph % (Auto) 23.4 [place] % (Auto) 7.0 Eos % (Auto) 1.9 Baso % (Auto) 0.3 Lymph # (Auto) 2.1 [place] # (Auto) 0.6 Eos # (Auto) 0.2 Baso # (Auto) 0.0 Abs Immat Gran (auto) 0.04 H Absolute Neuts (auto) 6.0 Absolute Nucleated RBC 0.000 Nucleated RBC % (auto) 0.0 Anion Gap 12 Estim Creat Clear Calc 52.0 Estimated GFR 59 POC Glucose 192 H Random Glucose 234 H Calcium 9.3 Magnesium 2.0 Total Bilirubin 0.2 AST 24 ALT 19 Alkaline Phosphatase 97 Total Protein 7.7 Albumin 4.1 Urine Color Yellow Urine Appearance Clear Urine pH 7.0 Ur Specific [place] 1.010 Urine Protein 30 (1+) H Urine Glucose (UA) >=1000 H Urine Ketones Negative Urine Blood Negative Urine Nitrite Negative Ur Leukocyte Esterase Trace H Urine RBC 0-2 Urine WBC 0-5 Ur Squamous Epith Cells 0-2 Urine Bacteria None Seen Hyaline Casts 0-2 Imaging Radiologist's Impressions: Impressions Head CT 01/05/25 15:34 IMPRESSION:1 No acute intracranial abnormality. Electronically signed by: Jeff Ruiz MD 01/05/2025 04:18 PM EDT Assessment and Plan (1) Blurring of vision: Status: Acute (2) Right facial numbness: Status: Acute (3) Class 1 obesity: Status: Acute Plan Patient is a 64-year-old female with a past medical history significant for history of thalamic stroke, insulin-dependent diabetes, hypertension, anxiety, CAD, class 1 obesity, who presented to the ED due to right-sided numbness occurring intermittently for the past few days. Blurry vision, right facial numbness, likely TIA - RUE and RLE numbness improved however still has blurry vision and R facial numbness - head CT negative - CTA head/neck with mild to moderate soft atheromatous plaque of the carotid bulbs and proximal internal carotid arteries. Moderate to severe calcified atherosclerotic disease of the cavernous portion of the internal carotid arteries. Empty sella - EKG normal - UA negative - given aspirin 324 mg x 1, continue 81 mg daily - continue atorvastatin 80 mg daily - monitor on telemetry - echocardiogram - neurology consult - aspiration precautions - passed bedside nursing swallow screen - neuro checks q.2h - MRI - allow permissive hypertension, will give half dose regular losartan now - PT/OT/speech eval Type 2 diabetes - sliding scale insulin - diabetic diet - hold p.o. diabetes meds - Lantus nightly Hypertension - give half dose losartan, 25 mg now, continue 50 mg nightly afterwards - nifedipine daily Anxiety/depression - continue lorazepam, zolpidem, fluoxetine CAD - Plavix and statin Class 1 obesity - patient is on Trulicity - BMI 32.3 - weight loss encouraged Full code VTE prophylaxis: Pneumoboots pending MRI Patient with blurry vision and right-sided facial numbness, concern for TIA, requiring admission for at least 2 midnights stay for further evaluation and monitoring. Quality Stroke Does the patient have a stroke diagnosis?: No VTE Prior VTE?: No VTE Risk Level:: Medical - moderate - high VTE Device Contraindication: N/A - Device Ordered VTE Drug Contraindication: Treatment Not Indicated
--- NOTE | 2025-01-06 | ECG_ITS ---
Test Reason : WEAKNESS Blood Pressure : */* mmHG Vent. Rate : 79 BPM Atrial Rate : 79 BPM P-R Int : 156 ms QRS Dur : 78 ms QT Int : 414 ms P-R-T Axes : 48 -5 -9 degrees QTcB Int : 474 ms Normal sinus rhythm Normal ECG When compared with ECG of 27-Dec-2023 11:59, No significant change was found Referred By: Navya Fay Electronically Signed By: Arcadio Duong
[2025-01-06 00:09] VITALS: BP 170/78; PULSE 82; RESP 16; TEMP 36.8; O2SAT 97
[2025-01-06] MEDS: 0.9 % Sodium Chloride Flush 3 ML SYRINGE IVFLUSH (00:12)
--- NOTE | 2025-01-06 00:16 | PC.NURSE ---
pt states feeling a bit anxious asking for something to help her relax and sleep. BEATRIZ Sexton in JUN, pt agreed t take this once verified.
--- NOTE | 2025-01-06 00:31 | PC.NURSE ---
pt opted for melatonin rather than the Ativan for sleep.
[2025-01-06 00:32] VITALS: BP 170/78
--- NOTE | 2025-01-06 00:33 | PC.NURSE ---
pt medicated per MAR
--- NOTE | 2025-01-06 01:01 | PC.NURSE ---
confirmed that EKG is needed now with provider, tech aware
[2025-01-06 02:39] VITALS: BP 149/66; PULSE 80; RESP 16; TEMP 36.9; O2SAT 97
--- NOTE | 2025-01-06 07:00 | CA_ITS ---
Transthoracic Echocardiogram Patient (Last, First, Middle): Britt Schwartz, Gender: Female Date of : 1960 Age: 64 Procedure Date: 01/06/2025 Procedure Type: Transthoracic Echocardiogram Location: ER Height: 149.86 cm Weight: 72.58 kg BSA: 1.68 m2 Heart Rate: 80 bpm BP: 137 / 64 mmHg Travel Specialist: GALO Referring MD: Ilia Dillard MD Symptoms: TIA Study Quality: Fair but adequate ECG Rhythm: Sinus Conclusions: - Normal left ventricular size, thickness, systolic function, and wall motion. The visually estimated ejection fraction is between 55-60%. - E/E prime ratio is >15, consistent with elevated filling pressures. - Normal right ventricular cavity size and systolic function. Findings Left Ventricle Normal left ventricular size, thickness, systolic function, and wall motion. The visually estimated ejection fraction is between 55-60%. Abnormal diastolic function is noted. Spectral Doppler is indicative of an impaired relaxation filling pattern. E/E prime ratio is >15, consistent with elevated filling pressures. Right Ventricle Normal right ventricular cavity size and systolic function. Atria The left atrium is normal in size. The right atrium is normal in size. Aortic Valve Normal aortic valve structure and function. There is no aortic valve stenosis. There is no aortic valve regurgitation. Mitral Valve The mitral valve appears normal. There is mild mitral annular calcification. There is no mitral valve regurgitation. There is no mitral valve stenosis. Pulmonic Valve The pulmonic valve is likely normal. Tricuspid Valve Normal tricuspid valve structure. There is no tricuspid valve regurgitation. Normal right atrial pressure. There is no evidence of pulmonary hypertension. Great Vessels All visible segments of the aorta are normal in size. Venous The inferior vena cava is normal in size and collapses greater than 50% with inspiration. Pericardium/Pleural There is no evidence of pericardial effusion. Prior Study Comparison Changes noted compared to prior study dated: 11/22/2020. Elevated filling pressures. Measurements 2D Linear Measurements IVSd: 1.07 0.6-0.9/0.6-1.0 cm LVIDd: 4.68 3.9-5.3/4.2-5.9 cm LVIDd Index: 2.79 2.4-3.2/2.2-3.1 cm/m2 LVIDs: 2.70 2.0-3.6 cm LVPWd: 0.89 0.7-1.1 cm LA Diam: 2.30 2.7-3.8/3.0-4.0 cm LAIDs Index: 1.37 1.5-2.3 cm/m2 LV Mass: 197.31 67-162/88-224 g LV Mass Index: 117.45 43-95/49-115 g/m2 LVOT Diam: 1.90 3.0+(-)1.3 cm 2D Systolic Function EF 4C: 53.70 >55% EF 2C: 69.60 >55% EF BiP: 61.10 >55% Mitral Valve MV Pk E: 1.03 MV PK A: 1.16 MV Decel Time: 219.00 E/A: 0.90 E'Lateral: 7.07 E'Medial: 4.90 E/E' Med: 21.00 E/E' Lat: 14.60 PHT: 64.00 MVA PHT: 3.44 Decel Clarke: 4.72 Aortic Valve AoV Pk [place]: 1.15 AoV Mn [place]: 0.80 AoV VTI: 0.24 AoV Pk Grad: 5.00 Aov Mn Grad: 3.00 SHARRI Cont.VTI: 2.28 LVOT LVOT Pk [place]: 0.92 LVOT Mn [place]: 0.66 LVOT VTI: 0.20 LVOT Pk Grad: 3.00 LVOT Mn Grad: 2.00 LVOT Diam: 1.90 LVOT Area: 2.84 Diastolic Function MV Pk E: 1.03 MV Pk A: 1.16 E/A: 0.90 E'Medial: 4.90 E/E' Med: 21.00 E' Laterial: 7.07 E/E' Lat: 14.60 Right Ventricle TAPSE (mm): 20.80 TVS' [place]: 9.68 Tricuspid Valve TR Pk [place]: 2.13 TR Pk Grad: 18.00 RA Press: 3.00 RVSP: 21.00 Great Vessels Aorta Sinus of Valsalva: 3.10 2.0-3.5 cm Ao Asc: 3.20 2.1-3.4 cm Ao Arch: 2.20 Pulmonary Veins Pulm Vein S/D 1.40 Pulmonary Valve PV Pk [place]: 0.80 Peak PV Grad: 3.00 Updated in Other Vendor System with Status of Final Arcadio Duong MD electronically signed on 01/07/2025 3:29:57 PM with status of Final
[2025-01-06 07:02] VITALS: BP 149/72; PULSE 78; RESP 18; TEMP 36.6; O2SAT 97
--- NOTE | 2025-01-06 07:47 | PC.NURSE ---
MRI form completed with pt, declined dog sitter. Form faxed to MRI.
[2025-01-06] MEDS: Aspirin Enteric Coated 81 MG TABLET.DR PO (09:02)
--- NOTE | 2025-01-06 09:02 | MHC.CM.PN ---
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
[2025-01-06 09:41] VITALS: BP 137/64
[2025-01-06] MEDS: NIFEdipine ER 30 MG TAB.ER.24 PO (09:41)
--- NOTE | 2025-01-06 12:01 | P.CNNE_ITS ---
History of Present Illness Data of Consult Service Date: 01/06/25 Primary Care Provider: Michael Peoples MD HPI Reason for consult: Stroke 64 years old woman with uncontrolled hypertension and severe intracranial atherosclerotic carotid disease previously seen for similar symptoms came to hospital with new onset of right-sided numbness. It involve right hand arm face and thigh. There was no associated pain or discomfort. It started yesterday and some of it was still there. She had not noted any new weakness. There was no speech or language difficulty. Review of Systems 2 Review of Systems: No recent cold or flu-like illness PMFSH Past Medical History Medical History Uncontrolled type 2 diabetes mellitus with hyperglycemia, with long-term current use of insulin Intracranial vascular stenosis Diabetes HTN (hypertension) CVA (cerebral vascular accident) Right thalamic stroke Obesity (BMI 30-39.9) Depression Anxiety Insomnia GERD without esophagitis Anemia, iron deficiency Lumbar degenerative disc disease Pure hypercholesterolemia Benign essential hypertension Diabetes mellitus Sciatic pain Fibromyalgia Family History Family History Father Suicide Epilepsy Mother Poor high blood pressure control Diabetes Hypertension Daughter Spina bifida Brother Stroke Other Mental health problem Surgical History Surgical History History of surgery History of left salpingo-oophorectomy H/O bilateral breast reduction surgery History of carpal tunnel release History of appendectomy History of section History of hysterectomy Social History Social History Household Members: Significant Other Housing: Apartment Do you presently have visiting nurse or other home services: No Alcohol intake: never Patient Tobacco Use Status: Never used Tobacco e-Cigarette/Vaping Use: Never Used Second Hand Smoke Exposure: Yes Advance Directives: No Advance Directives Information Provided: Yes Nutrition Risks: No Nutritional Risk service: No Current occupational status: disabled Cognitive needs: Yes (cane) Hearing needs: No Vision needs: Yes (glasses) Meds Allergies Allergy/AdvReac Type Severity Reaction Status Date / Time ibuprofen (From Motrin) Allergy Mild STOMACH Verified 01/05/25 14:43 UPSET oxycodone (From Percocet) Allergy Mild ITCHING Verified 01/05/25 14:43 lactose (LACTOSE) Allergy Unknown ABD PAIN Verified 01/05/25 14:43 metformin AdvReac Unknown nausea, Verified 01/05/25 14:43 somnolence amlodipine AdvReac Swelling Verified 01/05/25 14:43 Active Medications: Current Medications Acetaminophen (Acetaminophen 325 Mg Tablet) 650 mg PO Q6H PRN PRN Reason: Pain, Mild 1-3,fever,headache Aspirin (Aspirin Enteric Coated 81 Mg Tablet.Dr) 81 mg PO DAILY [facility] Last Admin: 01/06/25 09:02 Dose: 81 mg Atorvastatin Calcium (Atorvastatin Calcium 80 Mg Tablet) 80 mg PO DAILY [facility] Last Admin: 01/06/25 09:01 Dose: 80 mg Calcium Carbonate (Calcium Carbonate 750 Mg Tab.Chew) 750 mg PO Q4H PRN PRN Reason: Heartburn Last Admin: 01/06/25 09:44 Dose: 750 mg Clopidogrel Bisulfate (Clopidogrel Bisulfate 75 Mg Tablet) 75 mg PO DAILY [facility] Last Admin: 01/06/25 09:02 Dose: 75 mg Dextrose (Dextrose 50 % 25 Gm/50 Ml Syringe) 25 gm IVPUSH Q15M PRN; Protocol PRN Reason: per Hypoglycemia Standing Ord. Fluoxetine HCl (Fluoxetine Hcl 20 Mg Capsule) 20 mg PO DAILY [facility] Last Admin: 01/06/25 09:02 Dose: 20 mg Gabapentin (Gabapentin 100 Mg Capsule) 200 mg PO BID [facility] Last Admin: 01/06/25 09:02 Dose: 200 mg Glucose (Glucose Gel 15 Gm Gel..Gram.) 15 gm PO Q15M PRN; Protocol PRN Reason: per Hypoglycemia Standing Ord. Insulin Glargine (Insulin Glargine,Hum.Rec.Anlog 100 Unit/Ml 10 Ml Vial) 14 unit SUBCUT BEDTIME [facility] Insulin Human Lispro (Insulin Lispro 100 Unit/Ml 3 Ml Vial) 0 unit SUBCUT QIDACHS [facility]; Protocol Last Admin: 01/06/25 07:21 Dose: Not Given Lorazepam (Lorazepam 0.5 Mg Tablet) 0.5 mg PO DAILY PRN PRN Reason: Anxiety Magnesium Hydroxide (Milk Of Magnesia 30 Ml Oral.Susp) 30 ml PO DAILY PRN PRN Reason: Constipation Melatonin (Melatonin 3 Mg Tablet) 6 mg PO BEDTIME PRN PRN Reason: Insomnia Last Admin: 01/06/25 00:32 Dose: 6 mg Nifedipine (Nifedipine Er 30 Mg Tab.Er.24) 30 mg PO DAILY [facility]; Protocol Last Admin: 01/06/25 09:41 Dose: 30 mg Sodium Chloride (0.9 % Sodium Chloride Flush 3 Ml Syringe) 3 ml IVFLUSH QSHIFT [facility] Last Admin: 01/06/25 07:21 Dose: Not Given Vitamin D (Cholecalciferol (Vitamin D3) 25 Mcg Tablet) 50 mcg PO DAILY [facility] Last Admin: 01/06/25 09:41 Dose: 50 mcg Zolpidem Tartrate (Zolpidem Tartrate 5 Mg Tablet) 10 mg PO BEDTIME [facility] Home Medications ?Medication ?Instructions ?Recorded ?Confirmed ?Last Taken ?Type fluoxetine 20 mg capsule 20 mg PO DAILY 11/12/2012/1601/04/25 History lorazepam 0.5 mg tablet 0.5 mg PO DAILY PRN Anxiety 11/12/20 01/05/25 10/02/21 History zolpidem 10 mg tablet 10 mg PO BEDTIME 11/12/2001/04/25 History dulaglutide 3 mg/0.5 mL 3 mg subcut TH 01/05/2512/1601/01/25 History subcutaneous pen injector gabapentin 100 mg capsule 200 mg PO BID 01/05/2501/0501/04/25 History glimepiride 4 mg tablet 4 mg PO DAILY 01/05/2501/0501/04/25 History insulin glargine 100 unit/mL (3 14 unit subcut BEDTIME 01/05/25 01/05/25 01/04/25 History mL) subcutaneous pen (Lantus Solostar U-100 Insulin) losartan 50 mg tablet 50 mg PO BEDTIME 01/05/2501/04/25 History Physical Exam 2 Vital Signs: Vital Signs: Last Vital Signs Temp 97.9 F 01/06/25 07:02 Pulse 78 01/06/25 07:02 Resp 18 01/06/25 07:02 BP 137/64 01/06/25 09:41 Pulse Ox 97 01/06/25 07:02 O2 Del Method Room Air 01/06/25 07:02 BMI result Body Mass Index 32.3 Neuro: Other: She is alert and awake with normal spontaneity of speech fluency comprehension and affect. Face is symmetrical. Visual billy are full. There was no definite pronator drift. [id number] testing is normal. No sensory or visual extinction was noted. Plantars were flexor. Results Labs 01/06/25 04:31 01/06/25 04:31 Labs: Short CBC 01/05/25 01/06/25 Range/Units 15:29 04:31 WBC 9.0 9.3 (4.8-10.8) X10*3/uL Hgb 11.6 L 10.5 L (12.0-16.0) g/dl Hct 34.5 L 32.3 L (37.0-47.0) % Plt Count 431 H 391 (160-400) X10*3/uL BMP 01/05/25 01/06/25 15:29 04:31 Sodium 138 139 Potassium 3.6 3.4 Chloride 102 106 Carbon Dioxide 28 26 BUN 12 12 Creatinine 0.96 0.77 Calcium 9.3 8.6 D Liver Function 01/05/25 01/06/25 Range/Units 15:29 04:31 Total Bilirubin 0.2 0.2 (0.0-1.0) mg/dL AST 24 23 (5-31) U/L ALT 19 15 (0-31) U/L Alkaline Phosphatase 97 89 (39-117) U/L Albumin 4.1 3.6 (3.5-5.0) g/dL Urine 01/05/25 Range/Units 20:17 Urine Color Yellow Urine Appearance Clear Urine pH 7.0 (5.0-9.0) Ur Specific [place] 1.010 (1.005-1.025) Urine Protein 30 (1+) H (Neg-Trace) mg/dL Urine Glucose (UA) >=1000 H (Negative) mg/dL CTA and CTA of brain did not reveal any obvious acute abnormality. Intracranial disease was again noted. Assessment and Plan (1) Cerebral infarction: Qualifiers: Cerebral infarction mechanism: thrombosis Precerebral and cerebral artery: unspecified precerebral artery Qualified Code(s): I63.00 - Cerebral infarction due to thrombosis of unspecified precerebral artery Status: Acute 64 years old woman with uncontrolled hypertension and significant intracranial atherosclerotic disease presented with new onset of right-sided numbness that was likely cause by another vascular lesion or ischemic lesion or left side of brain. Mainstay of management is blood pressure control, anti-platelet agent and statin. Procedures Date of Service Date of Service: 01/06/25
--- NOTE | 2025-01-06 12:05 | HO.NURTONUR ---
Britt is a 64 yo female, full code, with mult allergies who came into the ED 01/05/25 with c/o right sided numbness and blurred vision x few days. PMH- stroke, HTN, insulin dependent DM, and anxiety EKG and head CT negative Neurology consult for possible TIA, MRI pending Pt is A/O x 3, on room air. Ambulates independently with steady gait. Seen and cleared by PT. #20 to right wrist. Pills whole with water
--- NOTE | 2025-01-06 12:14 | P.CNNE_ITS ---
History of Present Illness Data of Consult Service Date: 01/06/25 Primary Care Provider: Michael Peoples MD HPI Reason for consult: Right sided numbness Britt is a 64-year-old female with a past medical history significant for history of thalamic stroke, insulin-dependent diabetes, hypertension, anxiety, CAD, class 1 obesity, who presented to the ED due to right-sided numbness. The patient reports that she has a chronic right outer thigh numbness that is present intermittently and exacerbated by ambulation along periods of standing. She however awoke yesterday out of sleep with right sided upper extremity numbness that moved upwards into her face and affected the right side of her face including her lips and tongue. She felt as though she had a heavy tongue though was speaking clearly and making sense to others around her. In addition to these symptoms, she also developed a bilateral blurry vision. She denies double vision, or vision loss. Sensation was preserved to the distal lower extremity though numbness to the right thigh area remain the same as her chronic symptom. She did not have any lower extremity weakness though did report some upper extremity weakness sensation without loss of function. She also noted some pain to the outer aspect of the right 5th digit. Symptoms resolved several hours after onset and at this time the majority of her symptoms have resolved aside from her right outer thigh numbness which again is chronic and some residual right 5th digit discomfort and numbness sensation. She is not currently experiencing any weakness, slurred speech, or progressive vision changes. She does note that her vision still feels slightly ?fuzzy?. She does mention a headache that was present during and after this event. This resolved with Tylenol. Blood pressure on arrival to the emergency room was elevated (SBP in 190s). Workup included a CT of the brain which was nonacute and a CTA of the head and neck which showed [id number] a soft atheromatous plaque of the carotid bulbs and proximal internal carotid arteries as well as moderate to severe calcified atherosclerotic disease of the cavernous portion of the internal carotid arteries. She is currently taking aspirin 81 mg and Plavix 75 mg. In addition, she is also on atorvastatin 80 mg and blood pressure is being managed on a combination of losartan and nifedipine. Review of Systems 2 Review of Systems: Yes all other systems are reviewed and are negative PMFSH Past Medical History Medical History Uncontrolled type 2 diabetes mellitus with hyperglycemia, with long-term current use of insulin Intracranial vascular stenosis Diabetes HTN (hypertension) CVA (cerebral vascular accident) Right thalamic stroke Obesity (BMI 30-39.9) Depression Anxiety Insomnia GERD without esophagitis Anemia, iron deficiency Lumbar degenerative disc disease Pure hypercholesterolemia Benign essential hypertension Diabetes mellitus Sciatic pain Fibromyalgia Family History Family History Father Suicide Epilepsy Mother Poor high blood pressure control Diabetes Hypertension Daughter Spina bifida Brother Stroke Other Mental health problem Surgical History Surgical History History of surgery History of left salpingo-oophorectomy H/O bilateral breast reduction surgery History of carpal tunnel release History of appendectomy History of section History of hysterectomy Social History Social History Household Members: Significant Other Housing: Apartment Do you presently have visiting nurse or other home services: No Alcohol intake: never Patient Tobacco Use Status: Never used Tobacco e-Cigarette/Vaping Use: Never Used Second Hand Smoke Exposure: Yes Advance Directives: No Advance Directives Information Provided: Yes Nutrition Risks: No Nutritional Risk service: No Current occupational status: disabled Cognitive needs: Yes (cane) Hearing needs: No Vision needs: Yes (glasses) Meds Allergies Allergy/AdvReac Type Severity Reaction Status Date / Time ibuprofen (From Motrin) Allergy Mild STOMACH Verified 01/05/25 14:43 UPSET oxycodone (From Percocet) Allergy Mild ITCHING Verified 01/05/25 14:43 lactose (LACTOSE) Allergy Unknown ABD PAIN Verified 01/05/25 14:43 metformin AdvReac Unknown nausea, Verified 01/05/25 14:43 somnolence amlodipine AdvReac Swelling Verified 01/05/25 14:43 Active Medications: Current Medications Acetaminophen (Acetaminophen 325 Mg Tablet) 650 mg PO Q6H PRN PRN Reason: Pain, Mild 1-3,fever,headache Aspirin (Aspirin Enteric Coated 81 Mg Tablet.) 81 mg PO DAILY [facility] Last Admin: 01/06/25 09:02 Dose: 81 mg Atorvastatin Calcium (Atorvastatin Calcium 80 Mg Tablet) 80 mg PO DAILY [facility] Last Admin: 01/06/25 09:01 Dose: 80 mg Calcium Carbonate (Calcium Carbonate 750 Mg Tab.Chew) 750 mg PO Q4H PRN PRN Reason: Heartburn Last Admin: 01/06/25 09:44 Dose: 750 mg Clopidogrel Bisulfate (Clopidogrel Bisulfate 75 Mg Tablet) 75 mg PO DAILY [facility] Last Admin: 01/06/25 09:02 Dose: 75 mg Dextrose (Dextrose 50 % 25 Gm/50 Ml Syringe) 25 gm IVPUSH Q15M PRN; Protocol PRN Reason: per Hypoglycemia Standing Ord. Fluoxetine HCl (Fluoxetine Hcl 20 Mg Capsule) 20 mg PO DAILY [facility] Last Admin: 01/06/25 09:02 Dose: 20 mg Gabapentin (Gabapentin 100 Mg Capsule) 200 mg PO BID [facility] Last Admin: 01/06/25 09:02 Dose: 200 mg Glucose (Glucose Gel 15 Gm Gel..Gram.) 15 gm PO Q15M PRN; Protocol PRN Reason: per Hypoglycemia Standing Ord. Insulin Glargine (Insulin Glargine,Hum.Rec.Anlog 100 Unit/Ml 10 Ml Vial) 14 unit SUBCUT BEDTIME [facility] Insulin Human Lispro (Insulin Lispro 100 Unit/Ml 3 Ml Vial) 0 unit SUBCUT QIDACHS [facility]; Protocol Last Admin: 01/06/25 07:21 Dose: Not Given Lorazepam (Lorazepam 0.5 Mg Tablet) 0.5 mg PO DAILY PRN PRN Reason: Anxiety Magnesium Hydroxide (Milk Of Magnesia 30 Ml Oral.Susp) 30 ml PO DAILY PRN PRN Reason: Constipation Melatonin (Melatonin 3 Mg Tablet) 6 mg PO BEDTIME PRN PRN Reason: Insomnia Last Admin: 01/06/25 00:32 Dose: 6 mg Nifedipine (Nifedipine Er 30 Mg Tab.Er.24) 30 mg PO DAILY [facility]; Protocol Last Admin: 01/06/25 09:41 Dose: 30 mg Sodium Chloride (0.9 % Sodium Chloride Flush 3 Ml Syringe) [facility] Admin: 01/06/25 07:21 Dose: Not Given Vitamin D (Cholecalciferol (Vitamin D3) 25 Mcg Tablet) 50 mcg PO DAILY [facility] Last Admin: 01/06/25 09:41 Dose: 50 mcg Zolpidem Tartrate (Zolpidem Tartrate 5 Mg Tablet) 10 mg PO BEDTIME [facility] Home Medications ?Medication ?Instructions ?Recorded ?Confirmed ?Last Taken ?Type fluoxetine 20 mg capsule 20 mg PO DAILY 11/12/2012/1601/04/25 History lorazepam 0.5 mg tablet 0.5 mg PO DAILY PRN Anxiety 11/12/20 01/05/25 10/02/21 History zolpidem 10 mg tablet 10 mg PO BEDTIME 11/12/2001/04/25 History dulaglutide 3 mg/0.5 mL 3 mg subcut TH 01/05/2512/1601/01/25 History subcutaneous pen injector gabapentin 100 mg capsule 200 mg PO BID 01/05/2501/0501/04/25 History glimepiride 4 mg tablet 4 mg PO DAILY 01/05/2501/0501/04/25 History insulin glargine 100 unit/mL (3 14 unit subcut BEDTIME 01/05/25 01/05/25 01/04/25 History mL) subcutaneous pen (Lantus Solostar U-100 Insulin) losartan 50 mg tablet 50 mg PO BEDTIME 01/05/2501/04/25 History Physical Exam 2 Vital Signs: Vital Signs: Last Vital Signs Temp 97.9 F 01/06/25 07:02 Pulse 78 01/06/25 07:02 Resp 18 01/06/25 07:02 BP 137/64 01/06/25 09:41 Pulse Ox 97 01/06/25 07:02 O2 Del Method Room Air 01/06/25 07:02 BMI result Body Mass Index 32.3 Results Labs 01/06/25 04:31 01/06/25 04:31 Labs: Short CBC 01/05/25 01/06/25 Range/Units 15:29 04:31 WBC 9.0 9.3 (4.8-10.8) X10*3/uL Hgb 11.6 L 10.5 L (12.0-16.0) g/dl Hct 34.5 L 32.3 L (37.0-47.0) % Plt Count 431 H 391 (160-400) X10*3/uL BMP 01/05/25 01/06/25 15:29 04:31 Sodium 138 139 Potassium 3.6 3.4 Chloride 102 106 Carbon Dioxide 28 26 BUN 12 12 Creatinine 0.96 0.77 Calcium 9.3 8.6 D Liver Function 01/05/25 01/06/25 Range/Units 15:29 04:31 Total Bilirubin 0.2 0.2 (0.0-1.0) mg/dL AST 24 23 (5-31) U/L ALT 19 15 (0-31) U/L Alkaline Phosphatase 97 89 (39-117) U/L Albumin 4.1 3.6 (3.5-5.0) g/dL Urine 01/05/25 Range/Units 20:17 Urine Color Yellow Urine Appearance Clear Urine pH 7.0 (5.0-9.0) Ur Specific [place] 1.010 (1.005-1.025) Urine Protein 30 (1+) H (Neg-Trace) mg/dL Urine Glucose (UA) >=1000 H (Negative) mg/dL Assessment and Plan (1) Right facial numbness: Status: Acute (2) RUE numbness: Status: Acute Plan Britt is a 64-year-old female with a past medical history significant for history of thalamic stroke, insulin-dependent diabetes, hypertension, anxiety, CAD, class 1 obesity, who presented to the ED due to right-sided numbness accompanied by bilateral blurred vision. Symptoms have resolved the patient does still report some mild ?fuzziness? to her vision as well as some pain in numbness sensation to the outer aspect of her right 5th digit. CT/CTA imaging without any acute findings. Patient is already on a combination of aspirin and Plavix and is taking high-dose statin and blood pressure is being controlled as monitored. It is recommended that we obtain an MRI of the brain to evaluate for CVA. This has already been ordered. Pending results, could consider further workup such as echocardiogram if MRI is significant for a territory infarct. Otherwise, patient is already on supportive medications. Procedures Date of Service Date of Service: 01/06/25
--- NOTE | 2025-01-06 12:45 | P.DS_ITS ---
DS: Providers Provider Date of Service: 01/06/25 Date of admission: 01/05/25 20:53 Date of discharge: 01/06/25 Primary care physician: Michael Peoples MD Consults: 01/05/25 20:54 Consult to Neurology Routine Consulting Provider: Carrie Sales Reason for consultation: TIA DS: Diagnosis Discharge Diagnosis (1) Right facial numbness: Status: Resolved (2) RUE numbness: Status: Resolved DS: Summary Hospital Course Hospital Course: admission hpi Chief Complaint: numbness Patient is a 64-year-old female with a past medical history significant for history of thalamic stroke, insulin-dependent diabetes, hypertension, anxiety, CAD, class 1 obesity, who presented to the ED due to right-sided numbness occurring intermittently for the past few days. The patient reports additional blurry vision as well as right upper extremity and right lower extremity numbness which has improved however still feels this on her face. Earlier today she took a nap to try to sleep off her symptoms but they did not improve. She does have chronic right thigh numbness however the numbness was beyond the right thigh which has since improved. She denies any chest pain, shortness of breath, nausea, vomiting, abdominal pain or urinary symptoms. hospital course: Patient presented transient numness on right side and blury vision, work with CT heada, CTA of headnec and MRI show no acute finding. Seen by Neurologist with recommendation to control blood pressure and continue antiplatlets, she takes plavix 75 mg daily and aspirin 81 mg daily and increasing it to 2 tabs (182 mg daily) Time Attestation Discharge Coordination Time (in mins): 35 Quality: Safe Use of Opioids Does Pt have an Active Cancer Diagnosis on the Problem List?: No Quality: Stroke Does the patient have a stroke diagnosis?: No Physical Exam Vital Signs: Vital Signs: Last Vital Signs Temp 97.9 F 01/06/25 07:02 Pulse 78 01/06/25 07:02 Resp 18 01/06/25 07:02 BP 137/64 01/06/25 09:41 Pulse Ox 97 01/06/25 07:02 O2 Del Method Room Air 01/06/25 07:02 BMI result Body Mass Index 32.3 Const: Other: General: AO X 3, no acute distress Resp: CTA bilateral CVS: S1,S2,RRR GI: +BS, NT, no distention Skin: No rash Neuro: motor grossly intact Psych: appropriate affect DS: Data Data Completed and Pending Labs on day of discharge: Laboratory Results - last 24 hr 01/05/25 01/05/25 01/05/25 15:29 20:17 21:00 WBC 9.0 RBC 4.13 L Hgb 11.6 L Hct 34.5 L MCV 83.5 MCH 28.1 MCHC 33.6 RDW 12.6 Plt Count 431 H MPV 8.8 L Immature Gran % (Auto) 0.4 Neut % (Auto) 67.0 Lymph % (Auto) 23.4 Jackson % (Auto) 7.0 Eos % (Auto) 1.9 Baso % (Auto) 0.3 Lymph # (Auto) 2.1 Jackson # (Auto) 0.6 Eos # (Auto) 0.2 Baso # (Auto) 0.0 Abs Immat Gran (auto) 0.04 H Absolute Neuts (auto) 6.0 Absolute Nucleated RBC 0.000 Nucleated RBC % (auto) 0.0 Sodium 138 Potassium 3.6 Chloride 102 Carbon Dioxide 28 Anion Gap 12 BUN 12 Creatinine 0.96 Estim Creat Clear Calc 52.0 Estimated GFR 59 POC Glucose 192 H Random Glucose 234 H Calcium 9.3 Magnesium 2.0 Total Bilirubin 0.2 AST 24 ALT 19 Alkaline Phosphatase 97 Total Protein 7.7 Albumin 4.1 Triglycerides Cholesterol LDL Cholesterol, Calc HDL Cholesterol TSH Urine Color Yellow Urine Appearance Clear Urine pH 7.0 Ur Specific [place] 1.010 Urine Protein 30 (1+) H Urine Glucose (UA) >=1000 H Urine Ketones Negative Urine Blood Negative Urine Nitrite Negative Ur Leukocyte Esterase Trace H Urine RBC 0-2 Urine WBC 0-5 Ur Squamous Epith Cells 0-2 Urine Bacteria None Seen Hyaline Casts 0-2 01/06/25 01/06/25 04:31 07:04 WBC 9.3 RBC 3.80 L Hgb 10.5 L Hct 32.3 L MCV 85.0 MCH 27.6 MCHC 32.5 RDW 12.5 Plt Count 391 MPV 8.8 L Immature Gran % (Auto) Neut % (Auto) Lymph % (Auto) Jackson % (Auto) Eos % (Auto) Baso % (Auto) Lymph # (Auto) Jackson # (Auto) Eos # (Auto) Baso # (Auto) Abs Immat Gran (auto) Absolute Neuts (auto) Absolute Nucleated RBC 0.000 Nucleated RBC % (auto) 0.0 Sodium 139 Potassium 3.4 Chloride 106 Carbon Dioxide 26 Anion Gap 10 L BUN 12 Creatinine 0.77 Estim Creat Clear Calc 64.9 Estimated GFR > 60 POC Glucose 138 H Random Glucose 148 H Calcium 8.6 D Magnesium Total Bilirubin 0.2 AST 23 ALT 15 Alkaline Phosphatase 89 Total Protein 6.8 Albumin 3.6 Triglycerides 171 H Cholesterol 214 H LDL Cholesterol, Calc 136 H HDL Cholesterol 44 TSH 3.39 Urine Color Urine Appearance Urine pH Ur Specific [place] Urine Protein Urine Glucose (UA) Urine Ketones Urine Blood Urine Nitrite Ur Leukocyte Esterase Urine RBC Urine WBC Ur Squamous Epith Cells Urine Bacteria Hyaline Casts Discharge Plan Discharge Anticipated Discharge Date/Time: 01/06/25 13:57 Patient Disposition: Home, Self-Care Discharge Diagnosis: TIA Referrals: Michael Peoples MD [Primary Care Provider, Internal Medicine] - 1 Week Discharge Medications: Continued (DME) pen needle, diabetic [Pen Needle] 31 gauge x 1/4 needle See Rx Instructions .Route Qty: 100 3RF Rx Instructions: As directed daily cholecalciferol (vitamin D3) 50 mcg (2,000 unit) tablet 50 mcg PO DAILY Qty: 90 3RF (DME) OneTouch Ultra Test Strip See Rx Instructions .Route Qty: 100 12RF Rx Instructions: As directed - to test blood sugar TID pioglitazone 30 mg tablet 30 mg PO DAILY Qty: 90 3RF clopidogrel [Plavix] 75 mg tablet 75 mg PO DAILY 30 Days Qty: 30 3RF atorvastatin 80 mg tablet 80 mg PO BEDTIME Qty: 30 3RF glimepiride 4 mg tablet 4 mg PO DAILY gabapentin 100 mg capsule 200 mg PO BID insulin glargine [Lantus Solostar U-100 Insulin] 100 unit/mL (3 mL) insulin pen 14 unit subcut BEDTIME Rx Instructions: PT INJECTS 14 UNITS AT BEDTIME; IF SUGAR LEVELS ARE OVER 300 PT INJECTS 20 UNITS. losartan 50 mg tablet 50 mg PO BEDTIME fluoxetine 20 mg capsule 20 mg PO DAILY zolpidem 10 mg tablet 10 mg PO BEDTIME lorazepam 0.5 mg tablet 0.5 mg PO DAILY PRN (Reason: Anxiety) (DME) BLOOD PRESSURE MONITOR See Rx Instructions .Route .MEDSUPPLY Qty: 1 0RF Rx Instructions: As directed (DME) blood-glucose meter [OneTouch Ultra2 Meter] Kit See Rx Instructions .Route Qty: 1 0RF Rx Instructions: As directed- To test blood sugar TID (DME) lancets [OneTouch UltraSoft Lancets] Misc See Rx Instructions .Route Qty: 200 12RF Rx Instructions: As directed- To test blood sugar TID acetaminophen 500 mg capsule 1,000 mg PO Q6H PRN (Reason: pain) Qty: 20 0RF Changed aspirin 81 mg tablet,chewable 182 mg PO DAILY Qty: 30 3RF No Action nifedipine 30 mg tablet extended release 24hr 30 mg PO DAILY 30 Days Qty: 30 0RF Protocol: Hold for SBP< HOLD for SBP < : 90 Trulicity 3 mg/0.5 mL pen injector See Rx Instructions .ROUTE .COMPLEX Qty: 2 0RF Dose Instruction: INJECT 3MG SUBCUTANEOUSLY ONCE A WEEK FOR 4 WEEKS Rx Instructions: INJECT 3MG SUBCUTANEOUSLY ONCE A WEEK FOR 4 WEEKS Discharge Orders: Discharge Order (Routine); Ordered 01/06/25 Ordered By: Shyam Terrazas Diet: Advance to usual diet Activity on Discharge: As tolerated Stand Alone Forms: Patient Portal Discharge page Print Language: Tajik Care Plan Goals: recovery from Health Concerns: TIA Plan of Treatment: continue taking all your medications as before, follow up with your Doctor in a week take 2 baby aspirin a day Assessment: see above Discharge Date/Time: 01/06/25 15:14
[2025-01-06 13:06] LABS: Glucose, Whole Blood 150 mg/dL (60-115)
--- NOTE | 2025-01-06 15:04 | MHC.SP.ADU ---
Referring provider: Dr. Bailey Reason for Referral: Speech/Language/Cognitive assessment 2ndry ? TIA Type of Treatment: 39380 Assessment of Aphasia Date of Plan of Treatment: 01/06/25 Onset of Symptoms/Illness: 01/05/25 Date Treatment Started: 01/06/25 Medical Diagnosis: (1) Blurring of vision: (2) Right facial numbness: Primary Speech Language Diagnosis: Secondary Speech Language Diagnosis: History Patient is a 64-year-old female with a past medical history significant for thalamic stroke presented to the ED due to right-sided numbness occurring intermittently for the past few days. Patient reported to this examiner that she has had mild, residual speech issues since her stroke ( 2-3 years ago ) and with this new onset of numbness her tongue felt heavy and she was having similar symptoms with sequencing and speaking clearly. She reported she never had speech therapy after her last stroke. Medical History: Uncontrolled type 2 diabetes mellitus with hyperglycemia, with long-term current use of insulin Intracranial vascular stenosis Diabetes HTN (hypertension) CVA (cerebral vascular accident) Right thalamic stroke Obesity (BMI 30-39.9) Depression Anxiety Insomnia GERD without esophagitis Anemia, iron deficiency Lumbar degenerative disc disease Pure hypercholesterolemia Benign essential hypertension Diabetes mellitus Sciatic pain Fibromyalgia Medication List: See chart Recent Hospitalizations: No Respiratory Needs: Room Air Patient Orientation: Alert & Oriented x 4 Social History: Current Living Situation: Lives in private residence Assistive Devices in use: Cane, Glasses/Contacts Comment: Uses cane due to residual numbness in Right leg, also neuropathy? Past Speech Language Therapy: None Other Therapies Seen in Current Calendar Year: Physical Therapy Swallowing History: Dysphagia Specific: Within Functional Limits Comments: Pre-eval Risk for Aspiration: none Pre-evaluation Dietary Consistencies: Regular Pre-eval Liquid Intake: Thin Pre-eval Medication Intake: Whole with Liquid Reported Speech, Language, Cognition difficulties: Speaking Comments: Patient reports some residual difficulty with forming words clearly at times. Patient Stated Goal of Speech-Language Therapy: Assess for any new onset symptoms related to TIA/CVA possible diagnosis. Assessment Speech Production: Within Functional Limits Clinical Impression: Intact Observations: Patient produced target multisyllabic words and read [place] passage with slow but fluent speech, clear articulation with mild differences secondary to ESL/Burundian is first language. Informal Voice Assessment: Voice Loudness: Normal Voice Nasal Resonance: Voice Oral Resonance: Normal Voice Phonatory-based Quality: Normal Voice Pitch: Normal Voice Other Observations: Clinical Impression: Intact Clinicial Observations: Tests of Speech & Lang Adults: BDAE Clinical Impression: Intact Observations: Patient labelled pictures from the short form of the Lane Naming Test, labelling 12/15 pictures accurately. The three items missed (Craig, Sphynx, Palette) were not in patient's vocabulary rather than struggle to find word. Impressions and Recommendations Summary: Patient presented with speech/communications skills at baseline. Patient does have mild occasionally hesitancies and was noted to speak slowly and clearly, which are likely residual behaviors from CVA 2-3 years ago (this confirmed by patient). Patient was advised that if she felt she would benefit from follow up speech therapy (not provided in previous stroke and patient with some lingering concerns), to speak to PCP. No further services indicated at this time. Impact on Daily Function/Activity Limitations: Daily Activities: None Interpersonal Interactions: None Education: None Employment: None Community: None Prognosis for Improvement: Good Comment: Recommendation for Speech Therapy: NA:Typical Evaluation Patient Education: Completed: Yes Patient/Caregiver Education: Described Results of Evaluation Patient expressed understanding of evaluation Patient agrees with goals and treatment plan Comments/Barriers to Learning: Interface Designer Clinican/Clinical Fellow: No Supervisory Statement: N/A Speech Language Pathologist: Doreen Obregon M.A., CCC-MILK P[employer]UP TRUCK DRIVER
[2025-01-06 15:15] VITALS: BP 147/74; PULSE 83; RESP 18; TEMP 36.5; O2SAT 98
--- NOTE | 2025-01-06 15:35 | MHC.CM.PN ---
Pt. was medically cleared to ID, she went home via [facility] shuttle, plan is home, self care.
== END 2025-01-06 15:14 | disposition home or self-care (01) | DRG 69 ==
LOC: HO.ED 19:12 → HO.EDOVER 21:05
PROVIDERS: Physician Assistant Medical; Admitting Provider Hospitalist; Emergency Provider Emergency Medicine; PCP Internal Medicine; Visit Provider Internal Medicine
DX: G45.9 Transient cerebral ischemic attack, unspecified (principal); I25.10 Atherosclerotic heart disease of native coronary artery without angina pectoris; E66.811 Obesity, class 1; H53.8 Other visual disturbances; R20.0 Anesthesia of skin; Z71.3 Dietary counseling and surveillance; E11.9 Type 2 diabetes mellitus without complications; Z68.32 Body mass index [BMI] 32.0-32.9, adult; Z86.73 Personal history of transient ischemic attack (TIA), and cerebral infarction without residual deficits; Z79.4 Long term (current) use of insulin; Z79.82 Long term (current) use of aspirin; Z79.02 Long term (current) use of antithrombotics/antiplatelets; Z79.84 Long term (current) use of oral hypoglycemic drugs; Z79.899 Other long term (current) drug therapy
CPT/HCPCS: 36415; 70450; 70496; 70498; 70551; 80053; 80061; 81001; 82947; 83735; 84443; 85025; 85027; 93005; 93306; 97161; 97165; 99222; 99285; Q9957; Q9967

== ENCOUNTER → 2025-01-05 14:40 | Outpatient (BNV) | payer OTHER, SELFPAY | PROVIDERS: PCP Internal Medicine; Visit Provider Radiology Diagnostic Radiology | DX: I65.23 Occlusion and stenosis of bilateral carotid arteries (principal) | CPT/HCPCS: 70450; 70496; 70498 ==

== ENCOUNTER 2025-01-05 20:53 | Outpatient (BNV) | payer OTHER, SELFPAY | END 2025-01-06 12:08 | PROVIDERS: Admitting Provider Hospitalist; Emergency Provider Emergency Medicine; PCP Internal Medicine; Visit Provider Radiology Diagnostic Radiology | DX: H53.8 Other visual disturbances (principal); R20.2 Paresthesia of skin | CPT/HCPCS: 70551 ==

== ENCOUNTER 2025-01-05 20:53 | Outpatient (BNV) | payer OTHER, SELFPAY | END 2025-01-06 01:42 | PROVIDERS: Admitting Provider Hospitalist; Emergency Provider Emergency Medicine; PCP Internal Medicine; Visit Provider Internal Medicine Cardiovascular Disease | DX: I34.81 Nonrheumatic mitral (valve) annulus calcification (principal) | CPT/HCPCS: 93010; 93306 ==

== ENCOUNTER → 2025-01-05 20:53 | Outpatient (BNV) | payer OTHER, SELFPAY | PROVIDERS: Admitting Provider Hospitalist; Emergency Provider Emergency Medicine; PCP Internal Medicine; Visit Provider Psychiatry & Neurology Neurology | DX: I63.00 Cerebral infarction due to thrombosis of unspecified precerebral artery (principal) | CPT/HCPCS: 99222 ==

== ENCOUNTER → 2025-01-05 20:53 | Outpatient (BNV) | payer OTHER, SELFPAY | PROVIDERS: Admitting Provider Hospitalist; Emergency Provider Emergency Medicine; PCP Internal Medicine; Visit Provider Physician Assistant | DX: H53.8 Other visual disturbances (principal); R20.0 Anesthesia of skin; E66.811 Obesity, class 1 | CPT/HCPCS: 99223 ==

== ENCOUNTER 2025-02-24 14:28 | Outpatient (AMB) | payer OTHER, SELFPAY ==
--- NOTE | 2025-02-24 14:51 | A.OFFPC_ITS ---
Vital Signs 02/24/25 14:52 Height 4 ft 11 in Weight 170 lb 4 oz BMI 34.4 BP 114/90 H Blood Pressure Location Lt brachial Position Sitting Respiration 18 Pulse 86 Pulse Source Pulse Oximeter Temp Source Temporal Artery Scan Pulse Oximetry (%) 99 Oxygen Delivery Method Room Air Intake Visit Reasons: 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: No Accompanied by: Self / Same As Patient Allergies ibuprofen (From Motrin) Allergy (Mild, Verified 02/24/25 15:15) STOMACH UPSET oxycodone (From Percocet) Allergy (Mild, Verified 02/24/25 15:15) ITCHING lactose (LACTOSE) Allergy (Unknown, Verified 02/24/25 15:15) ABD PAIN metformin Adverse Reaction (Unknown, Verified 02/24/25 15:15) nausea, somnolence amlodipine Adverse Reaction (Verified 02/24/25 15:15) Swelling Tobacco use date assessed: 02/24/25 Dental Screening Dental Screen Date: 02/24/25 Did you have a dental visit in the last 12 months?: Yes Did you have a dental problem in the last 6 months where you did not have access to dental care?: No Was dental information given to patient?: Patient has dentist HPI [facility] 01/06 R sided numbness HPI Details The patient is a 64-year-old female presenting for a discussion regarding a recent episode of numbness and management of chronic conditions cause her to go the hospital. She recently experienced transient numbness that started in her finger, progressed up her arm, and also involved her leg on the right side of her body. The symptom was described as numbness without associated pain, and it has since resolved. The patient has a significant history of poorly controlled diabetes, with a recent HbA1c level of 10.1%. Her dietary habits include drinking coffee in the mornings and often skipping breakfast, which she acknowledges is not good for her condition. She also has a history of migraines. Patient had transient numbness in right side and blurry vision. Workup of CT of the head, CT of the head and neck and MRI of the head showed no acute findings. She was seen by the neurologist with recommendation to control blood pressure and continue antiplatelets, she takes Plavix 75 mg daily and aspirin 81 mg daily and increasing it to 2 tabs (182 mg daily) [facility] Medical History Uncontrolled type 2 diabetes mellitus with hyperglycemia, with long-term current use of insulin Intracranial vascular stenosis Diabetes HTN (hypertension) CVA (cerebral vascular accident) Right thalamic stroke Obesity (BMI 30-39.9) Depression Anxiety Insomnia GERD without esophagitis Anemia, iron deficiency Lumbar degenerative disc disease Pure hypercholesterolemia Benign essential hypertension Diabetes mellitus Sciatic pain Fibromyalgia Surgical History History of surgery History of left salpingo-oophorectomy H/O bilateral breast reduction surgery History of carpal tunnel release History of appendectomy History of section History of hysterectomy Family History Father Suicide Epilepsy Mother Poor high blood pressure control Diabetes Hypertension Daughter Spina bifida Brother Stroke Other Mental health problem Social History Household Members: Significant Other Housing: Apartment Do you presently have visiting nurse or other home services: No Alcohol intake: never Patient Tobacco Use Status: Never used Tobacco e-Cigarette/Vaping Use: Never Used Second Hand Smoke Exposure: Yes service: No Current occupational status: disabled Cognitive needs: Yes (cane) Hearing needs: No Vision needs: Yes (glasses) Questionnaire PHQ-9 Over the last 2 weeks, how often have you been bothered by any of the following problems? Depression Screening Interpretation: Positive Depression Screening Follow-up: Follow-up Visit Requested Depression Screening Done: Yes Source: Developed by Drs. Casper Tamayo, Malik Sanchez and colleagues, with an educational óscar from [employer]. Thrive Questionnaire Date Thrive assessed: 09/05/24 I am a: Patient Currently or been in a relationship where the following occur: No concerns reported THRIVE Score: 0 SAUL-7 AMB Questionnaire SAUL-7 Date SAUL - 7 assessed: 12/19/24 Source: Developed by Drs. Casper Tamayo, Malik Sanchez and colleagues, with an educational óscar from [employer]. Review of Systems Const Denies chills, Reports difficulty sleeping, Reports fatigue, Denies fever(s) and Denies headache(s) ENT Denies dysphagia, Denies dizziness, Denies headache(s), Denies neck pain, Denies odynophagia and Denies sore throat Card Denies chest pain, Denies palpitations and Denies dyspnea Resp Denies chest congestion, Denies cough and Denies dyspnea GI Denies abdominal pain, Denies constipation, Denies dysphagia, Denies heartburn, Denies diarrhea, Denies nausea, Denies odynophagia and Denies vomiting Denies difficulty voiding, Reports nocturia, Denies dysuria and Denies urinary urgency Musc Reports back pain (over the lower back - chronic), Reports arthralgias (in the right shoulder) and Denies neck pain Skin/Breast Denies rash Neuro Denies dizziness and Denies headache(s) Psych Reports depression (increased grief ) Endo Reports fatigue and Denies palpitations Physical exam (Primary Care) Vital Signs: Last Vital Signs Pulse 86 02/24/25 14:52 Resp 18 02/24/25 14:52 BP 114/90 H 02/24/25 14:52 Pulse Ox 99 02/24/25 14:52 Oxygen Delivery Method Room Air 02/24/25 14:52 BMI result Body Mass Index 34.4 Tobacco/Smoking Status: Tobacco use Status Tobacco use date assessed 02/24/25 02/24/25 15:06 Patient Tobacco Use Status Never used Tobacco 02/24/25 15:06 e-Cigarette/Vaping Use Never Used 02/24/25 15:06 Depression Screening Interpretation: Positive Depression Screening Follow-up: Follow-up Visit Requested Thrive Assessment: Date of Thrive Assessment Date Thrive assessed 09/05/24 02/24/25 15:06 Currently or been in a relationship where the following occur: No concerns reported Const General: no acute distress and alert HENMT Ears: TM's normal bilaterally and EAC's normal Throat: Yes posterior oropharynx normal and Yes tonsils normal (no TP congestion noted) Neck Neck: Yes supple and No lymphadenopathy Thyroid: Thyroid normal Resp Auscultation: clear to auscultation bilaterally, no rales and no wheezes Cardio Rate: regular rate Rhythm: regular rhythm Heart sounds: no murmurs GI Palpation (GI): Soft to palpation and nontender Auscultation: normal bowel sounds General: Yes no CVA tenderness Back/Spine/Pelvis Back: no CVA tenderness Thoracic/Lumbar Spine: lumbar spinal tenderness (mild) Skin Rashes: no rashes Extrem General: Yes no clubbing, cyanosis or edema Right upper extremity: shoulder/upper arm Details: tenderness Location: of the A-C joint Coding Level of Care Code Est Pt Level 4 (70179) Diagnoses Uncontrolled type 2 diabetes mellitus with hyperglycemia, with long-term current use of insulin E11.65; Z79.4 Transient neurological symptoms R29.818 Hypertension, unspecified type I10 Hypertension type: unspecified Time Spent (min) 38 Assessment & Plan Assessment & Plan (1) Uncontrolled type 2 diabetes mellitus with hyperglycemia, with long-term current use of insulin: Code(s): E11.65 - Type 2 diabetes mellitus with hyperglycemia; Z79.4 - shelter (current) use of insulin Category: Medical Plan: The patient's HbA1c is 10.1%, indicating severely uncontrolled diabetes. This places her at high risk for complications, including retinal detachment, and poor wound healing, which would be a contraindication for surgery. The patient has been advised on the importance of lowering her A1c through dietary changes, such as not skipping breakfast. A continuous glucose monitor (CGM) was recommended to help track her blood sugar in real-time and understand the impact of different foods. The patient reports that she has not taken the prescribed 30 units of Lantus because this drops her blood sugar too low. However, all ranges of blood sugar that the patient reports to be to allow were normal ranges or slightly high, for instance she mentioned a glucose of 195. Continue glimepiride 4 mg daily, Trulicity 3 mg weekly, pioglitazone 30 mg daily. Encouraged the patient to take the medications as ordered and follow up with Endocrinology GEORGE. (2) Transient neurological symptoms: Code(s): R29.818 - Other symptoms and signs involving the nervous system Category: Medical Plan: The patient's recent episode of unilateral numbness is concerning for a transient ischemic attack (TIA), especially given her history of lacunar infarcts on a prior MRI. Hypoglycemia or hyperglycemia were also considered as a potential mimic for stroke-like symptoms. The patient and her daughter were extensively counseled on the critical importance of calling 911 immediately if similar symptoms recur, as time is crucial in managing a potential stroke. Encouraged to check blood sugar whenever she starts to have similar symptoms. Continue aspirin 182 mg daily, atorvastatin 80 mg daily, Plavix 75 mg daily, along with strict blood pressure control. (3) HTN (hypertension): Code(s): I10 - Essential (primary) hypertension Category: Medical Qualifiers: Hypertension type: unspecified Qualified Code(s): I10 - Essential (primary) hypertension Plan: Blood pressure 114/90-systolic goal 130 mm Hg or less Reinforced low-salt diet Continue losartan 50 mg, nifedipine ER 30 mg daily Medications: New gabapentin 200 mg (2 x 100 mg) PO BID 90 caps 3RF Refilled pen needle, diabetic (Pen Needle) As directed daily 100 ea 3RF E11.9 - Type 2 diabetes mellitus without complications
[2025-02-24 14:52] VITALS: BP 114/90; PULSE 86; RESP 18; O2SAT 99; BMI 34.4
== END 2025-02-24 15:48 | disposition home or self-care (01) ==
LOC: HO.HMCH 14:28
PROVIDERS: PCP Internal Medicine
DX: E11.65 Type 2 diabetes mellitus with hyperglycemia (principal); Z79.4 Long term (current) use of insulin; R29.818 Other symptoms and signs involving the nervous system; I10 Essential (primary) hypertension

== ENCOUNTER → 2025-02-24 14:28 | Outpatient (BNVA) | payer OTHER, SELFPAY | PROVIDERS: PCP Internal Medicine | DX: E11.65 Type 2 diabetes mellitus with hyperglycemia (principal); R20.0 Anesthesia of skin; H53.8 Other visual disturbances; R29.818 Other symptoms and signs involving the nervous system; I10 Essential (primary) hypertension; Z79.4 Long term (current) use of insulin | CPT/HCPCS: 99212 ==

== ENCOUNTER 2025-03-06 10:40 | Outpatient (REF) | payer OTHER, SELFPAY ==
--- NOTE | ~2025-03-06 | MM_ITS ---
EXAMINATION: MM SCREENING DIGITAL BREAST TOMOSYNTHESIS, BILATERAL CLINICAL INFORMATION: Screening. Asymptomatic. COMPARISON: Mammography: Comparison is made with available priors TECHNIQUE: Digital breast mammography with tomosynthesis is performed in both the craniocaudal and mediolateral oblique views along with computer-aided detection (CAD). FINDINGS: The breasts are almost entirely fatty. There are no significant masses, abnormal calcifications, or other abnormalities. MM/MM tomosynthesis screening BI IMPRESSION: No mammographic evidence of malignancy. ASSESSMENT: BI-RADS Category 1: Negative RECOMMENDATION: Routine annual mammography screening. 1 year F/U This examination should not preclude the clinical evaluation of a suspicious palpable abnormality. This patient's information was entered into a reminder system with a target due date for their next mammogram. Electronically signed by: Deb Bronwlee DO 03/09/2025 05:43 PM [facility]
== END 2025-03-06 10:41 | disposition home or self-care (01) ==
LOC: HO.MAMMO 10:40
PROVIDERS: Visit Provider Internal Medicine
DX: Z12.31 Encounter for screening mammogram for malignant neoplasm of breast (principal)
CPT/HCPCS: 77063; 77067

== ENCOUNTER → 2025-03-06 11:00 | Outpatient (BNV) | payer OTHER, SELFPAY | PROVIDERS: Visit Provider Internal Medicine | DX: Z12.31 Encounter for screening mammogram for malignant neoplasm of breast (principal) | CPT/HCPCS: 77063; 77067 ==

== ENCOUNTER 2025-03-31 12:03 | Outpatient (REF) | payer OTHER, SELFPAY ==
[2025-03-31 12:27] LABS: MANUAL DIFF FLAG NO
[2025-03-31 12:52] LABS: Hematocrit 36.8 % (37.0-47.0); Hemoglobin 12.0 g/dl (12.0-16.0); Imm Gran Abs Auto 0.03 X10*3/uL (0.00-0.03); Imm Gran Pct Auto 0.3 % (0.0-0.4); Lymphocytes Absolute Auto 2.0 X10*3/uL (1.2-4.9); Mean Corpuscular HGB Conc 32.6 g/dl (31.0-35.0); Mean Corpuscular Hemoglobin 27.3 pg (27.0-33.0); Mean Corpuscular Volume 83.8 fL (80.0-98.0); NRBC Abs Auto 0.000 X10*3/uL (0.0-0.012); NRBC Pct Auto 0.0 /100WBC (0.0-0.2); Platelet Count 492 X10*3/uL (160-400); Red Blood Count 4.39 X10*6/uL (4.20-5.50); White Blood Count 8.9 X10*3/uL (4.8-10.8)
[2025-03-31 13:43] LABS: Alanine Aminotransferase 19 U/L (0-31); Albumin Level 4.2 g/dL (3.5-5.0); Alkaline Phosphatase 108 U/L (39-117); Anion Gap 14 (12-20); Aspartate Amino Transferase 24 U/L (5-31); Blood Urea Nitrogen 20 mg/dL (9-16); Calcium 9.6 mg/dL (8.4-10.2); Carbon Dioxide 27 mmol/L (22-29); Chloride 103 mmol/L (96-108); Cholesterol 216 mg/dL (<200); Estimated Glomerular Filt Rate 57; HDL Cholesterol 54 mg/dL (>40); Potassium 3.5 mmol/L (3.3-5.1); Sodium 140 mmol/L (135-145); Total Protein 8.0 g/dL (6.5-8.0); Triglycerides 147 mg/dL (<150)
[2025-03-31 14:07] LABS: Folate 8.2 ng/mL (> or = 4.0); Vitamin B12 431 pg/mL (200-900)
== END 2025-03-31 12:04 | disposition home or self-care (01) ==
LOC: HO.LAB 12:03
PROVIDERS: PCP Internal Medicine; Visit Provider Internal Medicine
DX: E53.8 Deficiency of other specified B group vitamins (principal); E11.9 Type 2 diabetes mellitus without complications; E78.00 Pure hypercholesterolemia, unspecified; D64.9 Anemia, unspecified; E55.9 Vitamin D deficiency, unspecified
CPT/HCPCS: 36415; 80053; 80061; 82306; 82607; 82746; 83036; 84443; 85025

== ENCOUNTER 2025-04-07 14:02 | Outpatient (AMB) | payer OTHER, SELFPAY ==
[2025-04-07 14:37] VITALS: BP 134/88; PULSE 100; RESP 16; TEMP 36.2; O2SAT 99; BMI 34.1
--- NOTE | 2025-04-07 14:37 | A.OFFPC_ITS ---
Vital Signs 04/07/25 14:37 Height 4 ft 11 in Weight 169 lb BMI 34.1 BP 134/88 Blood Pressure Location Lt brachial Position Sitting Respiration 16 Pulse 100 Pulse Source Pulse Oximeter Temp 97.1 F Temp Source Temporal Artery Scan Pulse Oximetry (%) 99 Oxygen Delivery Method Room Air Intake Visit Reasons: 3 month f/u Map Maker Required: No Accompanied by: Self / Same As Patient Allergies ibuprofen (From Motrin) Allergy (Mild, Verified 04/07/25 15:23) STOMACH UPSET oxycodone (From Percocet) Allergy (Mild, Verified 04/07/25 15:23) ITCHING lactose (LACTOSE) Allergy (Unknown, Verified 04/07/25 15:23) ABD PAIN metformin Adverse Reaction (Unknown, Verified 04/07/25 15:23) nausea, somnolence amlodipine Adverse Reaction (Verified 04/07/25 15:23) Swelling Medication List - Last Reconciled 04/07/25 by Michael Peoples MD acetaminophen 1,000 mg (2 x 500 mg) PO Q6H PRN aspirin 182 mg (2.2469 x 81 mg) PO DAILY atorvastatin 80 mg PO BEDTIME [BLOOD PRESSURE MONITOR As directed] blood sugar diagnostic (Cloudadmin Ultra Test strips) As directed - to test blood sugar TID blood-glucose meter (Reality Mobileuch Ultra2 Meter kit) As directed- To test blood sugar TID cholecalciferol (vitamin D3) 50 mcg PO DAILY clopidogrel (Plavix) 75 mg PO DAILY 30 days dulaglutide (Trulicity) INJECT 3MG SUBCUTANEOUSLY ONCE A WEEK FOR 4 WEEKS fluoxetine 20 mg PO DAILY gabapentin 200 mg (2 x 100 mg) PO BID glimepiride 4 mg PO DAILY insulin glargine (Lantus Solostar U-100 Insulin) 30 units (0.3 mL) subcut BEDTIME 90 days lancets (Reality [employer]uch UltraSoft Lancets) As directed- To test blood sugar TID lorazepam 0.5 mg PO DAILY PRN losartan 50 mg PO BEDTIME nifedipine ER 30 mg See Protocol PO DAILY 30 days pen needle, diabetic (Pen Needle) As directed daily pioglitazone 30 mg PO DAILY zolpidem 10 mg PO BEDTIME Tobacco use date assessed: 04/07/25 Dental Screening Dental Screen Date: 04/07/25 HPI 3 month f/u HPI Details - The patient is a 64 year old female pr esenting today for her follow up visit - She reports a sudden onset of blurry v ision, particularly in her peripheral vision, and describes it as feeling like smoke in her eyes or a curtain coming down. - She has been diagnosed with diabetic r etinopathy, a retinal detachment in the right eye, and is also at risk for narrow-angle glaucoma. - The left eye has changes related to di abetes. - She has received eye injections and rios s upcoming cataract surgery in May 2025 - The patient's diabetes is currently ma naged with Trulicity, but she experiences significant gastrointestinal side effects, including stomach pain, nausea, bloating, poor appetite, and foul-smelling gas. - These symptoms have limited her diet t o chicken broth and crackers at times. - Her A1C has improved from over 10 to 8 .9 recently - She was previously followed [facility] but cancelled a recent appointment. - Additionally, she complains of pain in her flank and groin. - She also reports high cholesterol [facility] and would like to know how she did on her follow up labs done last week [facility] Medical History (Updated 04/12/25 @ 06:36 by Michael Peoples MD) Diabetic retinopathy Uncontrolled type 2 diabetes mellitus with hyperglycemia, with long-term current use of insulin Intracranial vascular stenosis Diabetes HTN (hypertension) CVA (cerebral vascular accident) Right thalamic stroke Obesity (BMI 30-39.9) Depression Anxiety Insomnia GERD without esophagitis Anemia, iron deficiency Lumbar degenerative disc disease Pure hypercholesterolemia Benign essential hypertension Diabetes mellitus Sciatic pain Fibromyalgia Surgical History History of surgery History of left salpingo-oophorectomy H/O bilateral breast reduction surgery History of carpal tunnel release History of appendectomy History of section History of hysterectomy Family History Father Suicide Epilepsy Mother Poor high blood pressure control Diabetes Hypertension Daughter Spina bifida Brother Stroke Other Mental health problem Social History Household Members: Significant Other Housing: Apartment Do you presently have visiting nurse or other home services: No Alcohol intake: never Patient Tobacco Use Status: Never used Tobacco e-Cigarette/Vaping Use: Never Used Second Hand Smoke Exposure: Yes service: No Current occupational status: disabled Cognitive needs: Yes (cane) Hearing needs: No Vision needs: Yes (glasses) Questionnaire PHQ-9 Over the last 2 weeks, how often have you been bothered by any of the following problems? 1. Little interest or pleasure in doing things: not at all 2. Feeling down, depressed, or hopeless: not at all 3. Trouble falling or staying asleep, or sleeping too much: not at all 4. Feeling tired or having little energy: not at all 5. Poor appetite or overeating: not at all 6. Feeling bad about yourself - or that you are a failure or have let yourself or your family down: not at all 7. Trouble concentrating on things, such as reading the newspaper or watching television: not at all 8. Moving or speaking so slowly that other people could have noticed. Or the opposite - being so fidgety or restless that you have been moving around a lot more than usual: not at all 9. Thoughts that you would be better off or of hurting yourself in some w ay: not at all Total score: 0 Depression Screening Interpretation: Negative Depression Screening Done: Yes 21136 - PHQ-9 Billing: Yes Source: Developed by Drs. Casper Tamayo, Ayah Gaviria, Malik Brady and colleagues, with an educational óscar from [employer]. Thrive Questionnaire Date Thrive assessed: 04/07/25 What is your living situation today?: I have a steady place to live Within the past 12 months, did the food you bought not last and you didn't have the money to get more?: Never true Within the past 12 months, did you worry whether your food would run out before you got money to buy more?: Never true Do you have trouble paying for medicines?: No Do you have trouble getting transportation to medical appointments?: No Do you have trouble paying your heating and electricity bill?: No Do you have trouble taking care of your child, family member or friend?: No Do you have trouble with day-to-day activities such as bathing, preparing meals, shopping, managing finances, etc.?: Yes Are you currently unemployed and looking for a job?: No Are you interested in more education?: No Please select the resources that you would like help with: None Currently or been in a relationship where the following occur: I choose not to answer THRIVE Score: 0 AUDIT C Alcohol Use Questionnaire (AUDIT-C) 1. How often do you have a drink containing alcohol?: Never 3. How often do you have six or more drinks on one occasion?: Never Total Score: 0 Score Reviewed/Action Taken: Yes SAUL-7 AMB Questionnaire SAUL-7 Date SAUL - 7 assessed: 04/07/25 Feeling nervous, anxious, or on edge: 0 = Not at all Not being able to stop or control worryin = Not at all Worrying too much about different things: 0 = Not at all Trouble relaxin = Not at all Being so restless that it is hard to sit still: 0 = Not at all Becoming easily annoyed or irritable: 0 = Not at all Feeling afraid as if something awful might happen: 0 = Not at all Total SAUL-7 score (0-4 normal; 5-9 mild; 10-14 moderate; 15-21 severe): 0 Source: Developed by Drs. Casper Tamayo, Ayah Gaviria, Malik Brady and colleagues, with an educational óscar from [employer]. Review of Systems Const Denies chills, Reports difficulty sleeping, Reports fatigue, Denies fever(s) and Denies headache(s) Eyes Reports blurry vision and Reports change in vision (see HPI for details) ENT Denies dysphagia, Denies dizziness, Denies headache(s), Denies neck pain, Denies odynophagia and Denies sore throat Card Denies chest pain, Denies palpitations and Denies dyspnea Resp Denies chest congestion, Denies cough and Denies dyspnea GI Reports abdominal pain (on and off, mostly related to her Trulicity Rx), Denies constipation, Denies dysphagia, Denies heartburn, Denies diarrhea, Denies nausea, Denies odynophagia and Denies vomiting Denies difficulty voiding, Reports nocturia, Denies dysuria and Denies urinary urgency Musc Reports back pain (over the lower back - chronic), Reports arthralgias (in the right shoulder) and Denies neck pain Skin/Breast Denies rash Neuro Denies dizziness and Denies headache(s) Psych Reports depression (increased grief ) Endo Reports fatigue and Denies palpitations Physical exam (Primary Care) Vital Signs: Last Vital Signs Temp 97.1 F 04/07/25 14:37 Pulse 100 04/07/25 14:37 Resp 16 04/07/25 14:37 BP 134/88 04/07/25 14:37 Pulse Ox 99 04/07/25 14:37 Oxygen Delivery Method Room Air 04/07/25 14:37 BMI result Body Mass Index 34.1 Tobacco/Smoking Status: Tobacco use Status Tobacco use date assessed 04/07/25 04/07/25 14:39 Patient Tobacco Use Status Never used Tobacco 04/07/25 14:39 e-Cigarette/Vaping Use Never Used 04/07/25 14:39 PHQ-9: PHQ-9 Score PHQ-9: Total score 0 04/07/25 15:25 Depression Screening Interpretation: Negative Thrive Assessment: Date of Thrive Assessment Date Thrive assessed 04/07/25 04/07/25 14:39 Currently or been in a relationship where the following occur: I choose not to answer Const General: no acute distress and alert HENMT Ears: TM's normal bilaterally and EAC's normal Throat: Yes posterior oropharynx normal and Yes tonsils normal (no TP congestion noted) Neck Neck: Yes supple and No lymphadenopathy Thyroid: Thyroid normal Resp Auscultation: clear to auscultation bilaterally, no rales and no wheezes Cardio Rate: regular rate Rhythm: regular rhythm Heart sounds: no murmurs GI Palpation (GI): Soft to palpation and nontender Auscultation: normal bowel sounds General: Yes no CVA tenderness Back/Spine/Pelvis Back: no CVA tenderness Thoracic/Lumbar Spine: lumbar spinal tenderness (mild) Skin Rashes: no rashes Extrem General: Yes no clubbing, cyanosis or edema Right upper extremity: shoulder/upper arm Details: tenderness Location: of the A-C joint Results Reviewed Results Reviewed: Laboratory Tests 03/31/25 12:25 WBC 8.9 Hgb 12.0 Hct 36.8 L Plt Count 492 H D Sodium 140 Potassium 3.5 Creatinine 0.99 Estimated GFR 57 Fasting Glucose 164 H Hemoglobin A1c % 8.9 H Calcium 9.6 D AST 24 ALT 19 Triglycerides 147 Cholesterol 216 H LDL Cholesterol, Calc 133 H HDL Cholesterol 54 Vitamin B12 431 25-OH Vitamin D Total 41.9 TSH 2.13 Coding Level of Care Code Est Pt Level 4 (61317) Add On Problem Visit Only Diagnoses Type 2 diabetes mellitus with hyperglycemia, without long-term current use of insulin E11.65 Diabetes mellitus type: type 2 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: without correction use Diabetes mellitus complication status: with hyperglycemia Diabetic retinopathy of both eyes associated with type 2 diabetes mellitus, macular edema presence unspecified, unspecified retinopathy severity E11.319 Diabetes mellitus type: type 2 Diabetic retinopathy severity: with unspecified retinopathy severity Diabetes mellitus macular edema: macular edema presence unspecified Laterality: bilateral Pure hypercholesterolemia E78.00 Benign essential hypertension I10 Right thalamic stroke I63.9 Degeneration of intervertebral disc of lumbar region, unspecified whether pain present M51.369 Disc-related pain type: unspecified whether pain present Insomnia, unspecified type G47.00 Insomnia type: unspecified Anxiety F41.9 Episode of recurrent major depressive disorder, unspecified depression episode severity F33.9 Depression Type: major depressive disorder Major depression recurrence: recurrent Active/Remission status: currently active Major depression episode severity: unspecified Obesity (BMI 30-39.9) E66.9 Additional Codes PHQ-9 - 92619 - PHQ-9 Billing: Yes ([id number]) Assessment & Plan Assessment & Plan (1) Diabetes mellitus: Code(s): E11.9 - Type 2 diabetes mellitus without complications Category: Medical Qualifiers: Diabetes mellitus type: type 2 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: without 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 use Diabetes mellitus complication status: with hyperglycemia Qualified Code(s): E11.65 - Type 2 diabetes mellitus with hyperglycemia Plan: Patient's HgbA1c was at 8.9% on her labs done last week (was previously at 10.1% a few months ago) - goal is at least <7.0% especially in light of her current eye issues Reinforced diabetic diet - patient has admitted to poor compliance with her diet in the past but now adds that she's had trouble tolerating her Trulicity for a while now, with a lot of GI side effects, including recurrent stomach pain, nausea, bloating, poor appetite, and foul-smelling gas whenever she takes/injects the medication Will try switching her from Trulicity 3 mg once a week to Mounjaro 5 mg once a week Continue Lantus 30 units QD, Pioglitazone 30 mg QD and Glimepiride 4 mg Q AM for now Will try starting her additionally on Colesevelam 1250 mg BID, which can help with both her diabetes and cholesterol Will also refer her back to endocrinology for further management (2) Diabetic retinopathy: Code(s): E11.319 - Type 2 diabetes mellitus with unspecified diabetic retinopathy without macular edema Category: Medical Qualifiers: Diabetes mellitus type: type 2 Diabetic retinopathy severity: with unspecified retinopathy severity Diabetes mellitus macular edema: macular edema presence unspecified Laterality: bilateral Qualified Code(s): E11.319 - Type 2 diabetes mellitus with unspecified diabetic retinopathy without macular edema Plan: Patient's recent ophthalmology report indicated that she has diabetic retinopathy, retinal detachment in the right eye, and is also at risk for narrow-angle glaucoma. The left eye has changes related to diabetes as well She has received eye injections and has an upcoming cataract surgery scheduled in May 2025 Follow up with ophthalmology as scheduled (3) Pure hypercholesterolemia: Code(s): E78.00 - Pure hypercholesterolemia, unspecified Category: Medical Plan: Results of her labs done last week reviewed and discussed with patient - she has been cautioned that despite her Atorvastatin at 80 mg daily, her cholesterol levels have not improved at all and are still elevated, with her LDL cholesterol currently at 133 mg/dl Reinforced low-cholesterol diet Continue Atorvastatin 80 mg QD for now Will start her additionally on Colesevelam 1250 mg BID and have advised patient that this should help with both her cholesterol and her blood sugar Will also consider adding Ezetimibe or switching her over to Rosuvastatin if her cholesterol numbers are still not at goal over the next few months Will recheck her labs and fasting lipids in 3 months for follow up (4) Benign essential hypertension: Code(s): I10 - Essential (primary) hypertension Category: Medical Plan: Reinforced low-sodium diet - goal is systolic BP of 120 to 130 mm or less Continue Nifedipine ER 30 mg Q AM Will now increase her Losartan to 50 mg BID (5) Right thalamic stroke: Code(s): I63.9 - Cerebral infarction, unspecified Category: Medical Plan: MRI of the brain in November 2020 showed (+) acute lacunar infarct involving the right thalamus Patient does not appear to have any significant residual neurologic or physical deficits from her CVA Continue Aspirin 81 mg QD and Clopidogrel 75 mg QD Have emphasized to patient again the importance of better control of her blood pressure, blood sugar and cholesterol to prevent recurrence of her CVA and with all these 3 currently not well-controlled (mostly due to non-compliance with her diet, per patient's own admission), she is currently at a high risk of CVD or recurrence of her CVA Follow-up with neurology as scheduled or as needed - she was reportedly advised at her most recent neurology follow up that she does not need to see them regularly from now on and only on an as-needed basis (6) Lumbar degenerative disc disease: Code(s): M51.36 - Other intervertebral disc degeneration, lumbar region Category: Medical Qualifiers: Disc-related pain type: unspecified whether pain present Qualified Code(s): M51.369 - Other intervertebral disc degeneration, lumbar region without mention of lumbar back pain or lower extremity pain Plan: Reinforced activity and weight-lifting restrictions Continue Gabapentin 400 mg BID Lumbar spine x-rays done in July 2021 revealed mild multilevel degenerative disc disease with lower lumbar spine facet arthropathy, unchanged. Stable, chronic grade 1 anterolisthesis of L5 on S1. No acute osseous abnormality (7) Insomnia: Code(s): G47.00 - Insomnia, unspecified Category: Medical Qualifiers: Insomnia type: unspecified Qualified Code(s): G47.00 - Insomnia, unspecified Plan: Sleep hygiene reinforced Continue Zolpidem 10 mg once a day at bedtime as needed (8) Anxiety: Code(s): F41.9 - Anxiety disorder, unspecified Category: Medical Plan: Continue Lorazepam 0.5 mg 1 tablet once a day as needed (9) Depression: Code(s): F32.9 - Major depressive disorder, single episode, unspecified Category: Medical Qualifiers: Depression Type: major depressive disorder Major depression recurrence: recurrent Active/Remission status: currently active Major depression episode severity: unspecified Qualified Code(s): F33.9 - Major depressive disorder, recurrent, unspecified Plan: Continue Fluoxetine 20 mg once a day in the morning - this has gotten worse lately due to her mother's recent passing away a few weeks ago Follow-up with Psychiatry as scheduled (10) Obesity (BMI 30-39.9): Code(s): E66.9 - Obesity, unspecified Category: Medical Plan: Reinforced diet/exercise as tolerated/lose weight Plan Follow up as scheduled in early May 2025 Orders: Orders Hemoglobin A1c 05/09/25 E11.9 - Type 2 diabetes mellitus without complications Lipid Panel 05/09/25 E78.00 - Pure hypercholesterolemia, unspecified Complete Blood Count Auto Diff 05/09/25 D64.9 - Anemia, unspecified Comprehensive [place]. Panel Fast 05/09/25 E78.00 - Pure hypercholesterolemia, unspecified Referrals Endocrinology Referral E11.65 - Type 2 diabetes mellitus with hyperglycemia Medications: New colesevelam 1,250 mg (2 x 625 mg) PO BID 120 tabs 3RF 30 days E11.65 - Type 2 diabetes mellitus with hyperglycemia, E78.00 - Pure hypercholesterolemia, unspecified Mounjaro (tirzepatide) 5 mg (0.5 mL) subcut QWEEK 2 mL 3RF 4 weeks NS [facility] Reason: Doctor's Order INJECT 3MG SUBCUTANEOUSLY ONCE A WEEK FOR 4 WEEKS 2 mL 0RF
== END 2025-04-07 15:44 | disposition home or self-care (01) ==
LOC: HO.HMCH 14:03
PROVIDERS: PCP Internal Medicine; Visit Provider Internal Medicine
DX: E11.65 Type 2 diabetes mellitus with hyperglycemia (principal); E11.319 Type 2 diabetes mellitus with unspecified diabetic retinopathy without macular edema; I63.9 Cerebral infarction, unspecified; E78.00 Pure hypercholesterolemia, unspecified; I10 Essential (primary) hypertension; M51.369 Other intervertebral disc degeneration, lumbar region without mention of lumbar back pain or lower extremity pain; G47.00 Insomnia, unspecified; F41.9 Anxiety disorder, unspecified; F33.9 Major depressive disorder, recurrent, unspecified; E66.811 Obesity, class 1; Z68.34 Body mass index [BMI] 34.0-34.9, adult

== ENCOUNTER → 2025-04-07 14:02 | Outpatient (BNVA) | payer OTHER, SELFPAY | PROVIDERS: PCP Internal Medicine; Visit Provider Internal Medicine | DX: I10 Essential (primary) hypertension (principal); E11.65 Type 2 diabetes mellitus with hyperglycemia; E78.00 Pure hypercholesterolemia, unspecified; I63.9 Cerebral infarction, unspecified; M51.369 Other intervertebral disc degeneration, lumbar region without mention of lumbar back pain or lower extremity pain; G47.00 Insomnia, unspecified; F41.9 Anxiety disorder, unspecified; F33.9 Major depressive disorder, recurrent, unspecified; E66.9 Obesity, unspecified; Z13.31 Encounter for screening for depression; Z13.39 Encounter for screening examination for other mental health and behavioral disorders | CPT/HCPCS: 96127; 99212 ==